=== PATIENT | male | born 1950 | race Caucasian/White ===

== ENCOUNTER → 2020-02-07 13:04 | Outpatient (BNVA) | payer MEDICARE, SELFPAY | PROVIDERS: PCP Hospitalist; Visit Provider Internal Medicine | DX: Z86.73 Personal history of transient ischemic attack (TIA), and cerebral infarction without residual deficits (principal); Z51.81 Encounter for therapeutic drug level monitoring; Z79.01 Long term (current) use of anticoagulants | CPT/HCPCS: 85610; 99211 ==

== ENCOUNTER → 2020-03-06 13:00 | Outpatient (BNVA) | payer MEDICARE, SELFPAY | PROVIDERS: PCP Hospitalist; Visit Provider Internal Medicine | DX: Z86.73 Personal history of transient ischemic attack (TIA), and cerebral infarction without residual deficits (principal); Z51.81 Encounter for therapeutic drug level monitoring; Z79.01 Long term (current) use of anticoagulants | CPT/HCPCS: 85610; 99211 ==

== ENCOUNTER 2020-03-07 09:40 | Outpatient (REF) | payer MEDICARE, SELFPAY ==
[2020-03-07 10:26] LABS: Estimated Average Glucose 114 mg/dL; Hemoglobin A1c % 5.6 %
[2020-03-07 10:33] LABS: Hematocrit 42.6 % (42-52); Hemoglobin 13.5 g/dl (14.0-18.0)
[2020-03-07 10:51] LABS: Alanine Aminotransferase 15 U/L (0-40); Alkaline Phosphatase 88 U/L (39-117); Anion Gap 9 (12-20); Aspartate Amino Transferase 17 U/L (5-37); Bilirubin Total 0.4 mg/dL (0.0-1.0); Blood Urea Nitrogen 10 mg/dL (9-16); Calcium 8.9 mg/dL (8.4-10.2); Carbon Dioxide 32 mmol/L (22-29); Chloride 105 mmol/L (96-108); Cholesterol 154 mg/dL; Estimated Glomerular Filt Rate > 60; Glucose Random 105 mg/dL (60-115); HDL Cholesterol 51 mg/dL; LDL Cholesterol Calculated 91 mg/dl; Potassium 4.3 mmol/l (3.3-5.1); Sodium 142 mmol/L (135-145); Total Protein 6.4 g/dL (6.5-8.0); Triglycerides 60 mg/dL
[2020-03-07 10:59] LABS: Prostate Specific Antigen Scr 0.74 ng/mL (<0.05-4.0); Vitamin D 25-OH Total 28.1 ng/mL (>30)
[2020-03-09 23:42] LABS: Sex Hormone Binding Globulin 35 nmol/L (22-77)
[2020-03-12 02:26] LABS: Testosterone-Albumin 3.7 g/dL (3.6-5.1); Testosterone-Bioavailable 52.9 ng/dL (15.0-150.0); Testosterone-SHBG 34 nmol/L (22-77); Testosterone-Total 243 ng/dL (250-1100)
[2020-03-12 14:52] LABS: Testosterone, Free 34.4 pg/mL (30.0-135.0); Testosterone, Total 253 ng/dL (250-1100)
[2020-03-12 17:32] LABS: N-Telopeptide 59 (see note); NTXCreaRU 132 mg/dL (20-320)
== END 2020-03-07 09:41 | disposition home or self-care (01) ==
LOC: HO.LAB 09:40
PROVIDERS: PCP Hospitalist; Visit Provider Internal Medicine Endocrinology, Diabetes & Metabolism
DX: M81.8 Other osteoporosis without current pathological fracture (principal); E23.0 Hypopituitarism; R79.89 Other specified abnormal findings of blood chemistry
CPT/HCPCS: 36415; 80053; 80061; 82306; 82523; 83036; 84153; 84270; 84402; 84403; 85014; 85018

== ENCOUNTER → 2020-03-13 13:10 | Outpatient (BNVA) | payer MEDICARE, SELFPAY | PROVIDERS: PCP Hospitalist; Referring Provider Hospitalist; Visit Provider Internal Medicine Endocrinology, Diabetes & Metabolism | DX: E23.0 Hypopituitarism (principal); M81.0 Age-related osteoporosis without current pathological fracture; Z79.899 Other long term (current) drug therapy | CPT/HCPCS: Q3014 ==

== ENCOUNTER → 2020-03-25 13:09 | Outpatient (BNVA) | payer MEDICARE, SELFPAY | PROVIDERS: PCP Hospitalist; Visit Provider Internal Medicine | DX: Z86.73 Personal history of transient ischemic attack (TIA), and cerebral infarction without residual deficits (principal); Z51.81 Encounter for therapeutic drug level monitoring; Z79.01 Long term (current) use of anticoagulants | CPT/HCPCS: 85610; 99211 ==

== ENCOUNTER → 2020-04-29 13:01 | Outpatient (BNVA) | payer MEDICARE, SELFPAY | PROVIDERS: PCP Hospitalist; Visit Provider Internal Medicine | DX: Z86.73 Personal history of transient ischemic attack (TIA), and cerebral infarction without residual deficits (principal); Z51.81 Encounter for therapeutic drug level monitoring; Z79.01 Long term (current) use of anticoagulants | CPT/HCPCS: 85610; 99211 ==

== ENCOUNTER 2020-05-21 09:58 | Outpatient (REF) | payer MEDICARE, SELFPAY ==
[2020-05-21 14:04] LABS: MANUAL DIFF FLAG NO
[2020-05-21 14:09] LABS: Basophils Absolute Auto 0.1 X10*3/uL (0.0-0.2); Basophils Percent Auto 0.6 % (0-2); Eosinophils Absolute Auto 0.2 X10*3/uL (0.0-0.4); Hematocrit 42.1 % (42-52); Hemoglobin 13.1 g/dl (14.0-18.0); Imm Gran Abs Auto 0.02 X10*3/uL (0.00-0.03); Imm Gran Pct Auto 0.3 % (0.0-0.4); Lymphocytes Absolute Auto 2.4 X10*3/uL (1.2-4.9); Mean Corpuscular HGB Conc 31.1 g/dl (31.0-36.0); Mean Corpuscular Hemoglobin 29.9 pg (27.0-33.0); Mean Corpuscular Volume 96.1 fL (80-98); Monocytes Absolute Auto 0.6 X10*3/uL (0.1-1.2); Monocytes Percent Auto 7.3 % (2-11); Neutrophils Absolute Auto 4.8 X10*3/uL (2.0-8.3); Neutrophils Percent Auto 59.8 % (45-73); Platelet Count 224 X10*3/uL (160-400); Red Blood Count 4.38 X10*6/uL (4.60-5.80); Red Cell Distribution Width 13.1 % (11.0-16.0)
[2020-05-21 14:29] LABS: Alanine Aminotransferase 11 U/L (0-40); Albumin Level 3.8 g/dL (3.5-5.0); Alkaline Phosphatase 90 U/L (39-117); Anion Gap 12 (12-20); Aspartate Amino Transferase 17 U/L (5-37); Bilirubin Total 0.5 mg/dL (0.0-1.0); Blood Urea Nitrogen 13 mg/dL (9-16); Calcium 8.7 mg/dL (8.4-10.2); Carbon Dioxide 29 mmol/L (22-29); Chloride 106 mmol/L (96-108); Cholesterol 156 mg/dL; Estimated Glomerular Filt Rate > 60; Glucose Fasting 91 mg/dL (60-99); HDL Cholesterol 51 mg/dL; LDL Cholesterol Calculated 92 mg/dl; Potassium 4.7 mmol/l (3.3-5.1); Sodium 142 mmol/L (135-145); Total Protein 6.2 g/dL (6.5-8.0); Triglycerides 68 mg/dL
[2020-05-21 14:40] LABS: Creatinine Urine 118.54 mg/dL; Microalbum/Creatinine Ratio Ur 4.2 ug/mg cr
[2020-05-21 14:43] LABS: Alanine Aminotransferase 11 U/L (0-40); Albumin Level 3.8 g/dL (3.5-5.0); Alkaline Phosphatase 89 U/L (39-117); Aspartate Amino Transferase 17 U/L (5-37); Bilirubin Direct 0.2 mg/dL (0.0-0.5); Bilirubin Total 0.5 mg/dL (0.0-1.0); C Reactive Protein 0.29 mg/dL (< or = 0.50); Iron 82 mcg/dL (45-160); Percent Iron Saturation 27 % (15-50); Total Iron Binding Capacity 307 mcg/dL (228-428); Total Protein 6.2 g/dL (6.5-8.0); Unsaturated Iron Binding 225 ug/dL
[2020-05-21 14:53] LABS: Ferritin 133 ng/mL (20-250); TSH reflex Free T4 0.95 mIU/mL (0.32-4.0)
[2020-05-21 15:18] LABS: Erythrocyte Sedimentation Rate 10 MM/HR (0-15)
[2020-05-21 15:51] LABS: Folate 12.8 ng/mL (> or = 4.0); Vitamin B12 290 pg/mL (200-900)
== END 2020-05-21 09:59 | disposition home or self-care (01) ==
LOC: HO.10HDL 09:58
PROVIDERS: Absent Provider Internal Medicine; Visit Provider Hospitalist
DX: Z00.00 Encounter for general adult medical examination without abnormal findings (principal); Z13.220 Encounter for screening for lipoid disorders; R19.7 Diarrhea, unspecified; K51.90 Ulcerative colitis, unspecified, without complications
CPT/HCPCS: 36415; 80053; 80061; 80076; 82043; 82248; 82607; 82728; 82746; 83540; 84443; 85025; 85652; 86140

== ENCOUNTER 2020-05-22 11:13 | Outpatient (REF) | payer MEDICARE, SELFPAY ==
[2020-05-22 14:34] LABS: CDIFF Ag Positive (Negative); CDiff Toxin Negative (Negative)
[2020-05-22 14:35] LABS: CDIFF Internal ctrl Dots and bkg OK (V)
[2020-05-22 15:09] LABS: Leukocytes Stool Qualitative NEGATIVE (NEGATIVE)
[2020-05-22 15:27] LABS: CDiff Gene PCR POSITIVE (Negative)
== END 2020-05-22 11:14 | disposition home or self-care (01) ==
LOC: HO.10HDLNP 11:13
PROVIDERS: Visit Provider Internal Medicine
DX: R19.7 Diarrhea, unspecified (principal); K51.90 Ulcerative colitis, unspecified, without complications; E55.9 Vitamin D deficiency, unspecified
CPT/HCPCS: 87045; 87046; 87177; 87209; 87324; 87329; 87449; 87493; 89055

== ENCOUNTER → 2020-05-27 13:05 | Outpatient (BNVA) | payer MEDICARE, SELFPAY | PROVIDERS: PCP Hospitalist; Visit Provider Internal Medicine ==

== ENCOUNTER → 2020-05-29 13:45 | Outpatient (BNVA) | payer MEDICARE, SELFPAY | PROVIDERS: PCP Hospitalist; Visit Provider Internal Medicine | DX: Z86.73 Personal history of transient ischemic attack (TIA), and cerebral infarction without residual deficits (principal); Z51.81 Encounter for therapeutic drug level monitoring; Z79.01 Long term (current) use of anticoagulants | CPT/HCPCS: 85610; 99211 ==

== ENCOUNTER → 2020-06-02 13:00 | Outpatient (BNVA) | payer MEDICARE, SELFPAY | PROVIDERS: PCP Hospitalist; Visit Provider Internal Medicine | DX: Z86.73 Personal history of transient ischemic attack (TIA), and cerebral infarction without residual deficits (principal); Z51.81 Encounter for therapeutic drug level monitoring; Z79.01 Long term (current) use of anticoagulants | CPT/HCPCS: 85610; 99211 ==

== ENCOUNTER 2020-06-10 13:05 | Outpatient (REF) | payer MEDICARE, SELFPAY ==
[2020-06-10 14:43] LABS: CDIFF Ag Negative (Negative); CDIFF Internal ctrl Dots and bkg OK (V); CDiff Toxin Negative (Negative)
--- NOTE | 2020-07-13 13:56 | HO.ANESPROP2 ---
HPI - Anesthesia Eval Consult details Narrative: 70yo M for Colonoscopy 07/29/20 Coumadin (PAF, h/o CVA) Chronic opiods (fentanyl patch) s/p RUL lobectomy d/t lung ca 05/2020 Telehealth visit with patient describing increase SOB, recently seen PCP whom suggested ECHO/Stress. Cleared by auto suspension and steering mechanic at mod cardiovasc risk and high pulmonary risk. No stress test needed. PMFSH Active Problems Active Problems: All Active Problems (Updated 06/03/20 @ 14:49 by Marika Hyman) Current use of anticoagulant therapy (Acute) Cerebrovascular disease (Acute) Vitamin D deficiency (Acute) Hypogonadotropic hypogonadism (Acute) Osteoporosis (Acute) Past Medical History Medical History (Updated 06/03/20 @ 14:49 by Marika Hyman) AAA (abdominal aortic aneurysm) Arrhythmia Arthritis Back pain COPD (chronic obstructive pulmonary disease) CVA (cerebral vascular accident) Elevated cholesterol History of MRSA infection Hx of cancer of lung Hx of Clostridium difficile infection Hx of spinal stenosis Hx of ulcerative colitis Hypogonadotropic hypogonadism Lab test negative for COVID-19 virus On anticoagulant therapy Osteoporosis Vitamin D deficiency Family History Family History (Updated 03/10/20 @ 16:27 by Prema Horta MA) Father AAA (abdominal aortic aneurysm) Mother No problems noted. Surgical History Surgical History (Updated 06/03/20 @ 13:03 by Marika Hyman) H/O colonoscopy History of bowel resection History of bronchoscopy History of lobectomy of lung Hx of cervical discectomy Social History Social History (Updated 06/03/20 @ 14:52 by Marika Hyman) Smoking Status: Current every day smoker Tobacco Type: Cigarette Cigarettes Per Day: 2 Years Smoked: 54 Substance Use Type: Marijuana Meds Allergies Allergy/AdvReac Type Severity Reaction Status Date / Time bupropion [From Wellbutrin] Allergy Intermediate Nausea Verified 06/12/20 13:23 levofloxacin [From LEVAQUIN] Allergy Intermediate GI UPSET/ Verified 06/12/20 13:23 WEIGHT LOSS, anaphylaxis ibuprofen Allergy Mild GI DISTRESS Verified 06/12/20 13:23 Home Medications Medication Instructions Recorded Confirmed Last Taken Type albuterol sulfate 2.5 mg CONTINUOUS NEBULIZATION QID 03/06/20 06/26/20 Unknown History PRN albuterol sulfate 90 mcg/actuation 1 inh PO Q4H PRN 03/06/20 06/26/20 Unknown History breath activated powder inhaler fentanyl 12 mcg/hr transdermal 1 patch TOPICAL Q3D 03/06/20 06/26/20 Unknown History patch metoprolol tartrate 25 mg tablet 25 mg PO BID 03/06/20 06/26/20 Unknown History oxycodone 15 mg tablet 15 mg PO QID 03/06/20 06/26/20 Unknown History umeclidinium 62.5 mcg-vilanterol 1 ea PO DAILY 03/06/20 06/26/20 Unknown History 25 mcg/actuation powdr for inhalation atorvastatin 20 mg tablet 20 mg PO DAILY 06/26/20 06/26/20 Unknown History dicyclomine 10 mg capsule 10 mg PO TID 06/26/20 06/26/20 Unknown History diltiazem HCl 120 mg 120 mg PO DAILY 06/26/20 06/26/20 Unknown History capsule,extended release 24 hr Exam Exam Date and Time: July 13, 2020 1356 Pertinent Lab Results Pertinent Lab Results: Laboratory Tests 06/10/20 Unknown C. difficile Toxin A&B Negative C. difficile Antigen Negative C. difficile Interpret SEE NOTE Narrative Narrative: EKG 05/2020 NSR, nonspecific ST changes Echo 06/2020 LVEF 50-55% Cannot assess diastolic function d/t afib LA size is nml RV is nml in size and function No evidence of AR Mild MR Accurate pulmonary pressures cannot be determined due to the absence of a TR jet. No significant change from previous
== END 2020-06-10 13:06 | disposition home or self-care (01) ==
LOC: HO.10HDL 13:05
PROVIDERS: Visit Provider Internal Medicine
DX: A49.8 Other bacterial infections of unspecified site (principal); R19.7 Diarrhea, unspecified
CPT/HCPCS: 87324; 87449

== ENCOUNTER → 2020-06-12 13:23 | Outpatient (BNVA) | payer MEDICARE, SELFPAY | PROVIDERS: PCP Hospitalist; Visit Provider Internal Medicine | DX: Z86.73 Personal history of transient ischemic attack (TIA), and cerebral infarction without residual deficits (principal); Z51.81 Encounter for therapeutic drug level monitoring; Z79.01 Long term (current) use of anticoagulants | CPT/HCPCS: 85610; 99211 ==

== ENCOUNTER → 2020-06-26 13:04 | Outpatient (BNVA) | payer MEDICARE, SELFPAY | PROVIDERS: PCP Hospitalist; Visit Provider Internal Medicine | DX: Z86.718 Personal history of other venous thrombosis and embolism (principal); Z51.81 Encounter for therapeutic drug level monitoring; Z79.01 Long term (current) use of anticoagulants | CPT/HCPCS: 85610; 99211 ==

== ENCOUNTER → 2020-07-24 13:01 | Outpatient (BNVA) | payer MEDICARE, SELFPAY | PROVIDERS: PCP Hospitalist; Visit Provider Internal Medicine | DX: Z86.73 Personal history of transient ischemic attack (TIA), and cerebral infarction without residual deficits (principal); Z79.01 Long term (current) use of anticoagulants; Z51.81 Encounter for therapeutic drug level monitoring | CPT/HCPCS: 85610; 99211 ==

== ENCOUNTER 2020-07-29 08:39 | Day surgery (SDC) | payer MEDICARE, SELFPAY ==
--- NOTE | 2020-07-28 07:54 | P.CONAN_ITS ---
Documented by User: Joan Hilary 07/28/20 07:55 HPI - Anesthesia Eval Consult details Narrative: 70yo M for Colonoscopy 07/29/20 Coumadin (PAF, h/o CVA) Chronic opiods (fentanyl patch) s/p RUL lobectomy d/t lung ca 05/2020 Telehealth visit with patient describing increase SOB, recently seen PCP whom suggested ECHO/Stress. Cleared by telecommunications analyst at mod cardiovasc risk and high pulmonary risk. No stress test needed. [facility] Active Problems Active Problems: All Active Problems (Updated 06/03/20 @ 14:49 by Marika Hyman) Current use of anticoagulant therapy (Acute) Cerebrovascular disease (Acute) Vitamin D deficiency (Acute) Hypogonadotropic hypogonadism (Acute) Osteoporosis (Acute) Past Medical History Medical History (Updated 07/29/20 @ 11:43 by Dionna Pleitez) AAA (abdominal aortic aneurysm) Arrhythmia Arthritis Back pain COPD (chronic obstructive pulmonary disease) CVA (cerebral vascular accident) Elevated cholesterol History of MRSA infection Hx of cancer of lung Hx of Clostridium difficile infection Hx of spinal stenosis Hx of ulcerative colitis Hypogonadotropic hypogonadism Lab test negative for COVID-19 virus On anticoagulant therapy Osteoporosis Vitamin D deficiency Family History Family History (Updated 03/10/20 @ 16:27 by Prema Horta MA) Father AAA (abdominal aortic aneurysm) Mother No problems noted. Surgical History Surgical History (Updated 06/03/20 @ 13:03 by Marika Hyman) H/O colonoscopy History of bowel resection History of bronchoscopy History of lobectomy of lung Hx of cervical discectomy Social History Social History (Updated 06/03/20 @ 14:52 by Marika Hyman) Smoking Status: Current every day smoker Tobacco Type: Cigarette Cigarettes Per Day: 2 Years Smoked: 54 Use of substances other than those prescribed or required for medical reasons: No Substance Use Type: Marijuana Have you been hit, kicked, punched, or otherwise hurt by someone within the past year? If so, by whom?: No Advance Directives: No Advance Directives Information Provided: Yes Meds Allergies Allergy/AdvReac Type Severity Reaction Status Date / Time bupropion [From Wellbutrin] Allergy Intermediate Nausea Verified 06/12/20 13:23 levofloxacin [From LEVAQUIN] Allergy Intermediate GI UPSET/ Verified 06/12/20 13:23 WEIGHT LOSS, anaphylaxis ibuprofen Allergy Mild GI DISTRESS Verified 06/12/20 13:23 Home Medications Medication Instructions Recorded Confirmed Last Taken Type albuterol sulfate 2.5 mg CONTINUOUS NEBULIZATION QID 03/06/20 07/24/20 Unknown History PRN albuterol sulfate 90 mcg/actuation 1 inh PO Q4H PRN 03/06/20 07/24/20 Unknown History breath activated powder inhaler fentanyl 12 mcg/hr transdermal 1 patch TOPICAL Q3D 03/06/20 07/24/20 Unknown History patch metoprolol tartrate 25 mg tablet 25 mg PO BID 03/06/20 07/24/20 Unknown History oxycodone 15 mg tablet 15 mg PO QID 03/06/20 07/24/20 Unknown History umeclidinium 62.5 mcg-vilanterol 1 ea PO DAILY 03/06/20 07/24/20 Unknown History 25 mcg/actuation powdr for inhalation atorvastatin 20 mg tablet 20 mg PO DAILY 06/26/20 07/24/20 Unknown History dicyclomine 10 mg capsule 10 mg PO TID 06/26/20 07/24/20 Unknown History diltiazem HCl 120 mg 120 mg PO DAILY 06/26/20 07/24/20 Unknown History capsule,extended release 24 hr Exam Exam Date and Time: July 28, 2020 9986 Narrative Narrative: EKG 05/2020 NSR, nonspecific ST changes Echo 06/2020 LVEF 50-55% Cannot assess diastolic function d/t afib LA size is nml RV is nml in size and function No evidence of AR Mild MR Accurate pulmonary pressures cannot be determined due to the absence of a TR jet. No significant change from previous Assessment and Plan Assessment Anesthesia Assessment: Chart Reviewed Documented by User: Dionna Pleitez 07/29/20 11:43 [facility] Past Medical History Medical History (Updated 07/29/20 @ 11:43 by Dionna Pleitez) AAA (abdominal aortic aneurysm) Arrhythmia Arthritis Back pain COPD (chronic obstructive pulmonary disease) CVA (cerebral vascular accident) Elevated cholesterol History of MRSA infection Hx of cancer of lung Hx of Clostridium difficile infection Hx of spinal stenosis Hx of ulcerative colitis Hypogonadotropic hypogonadism Lab test negative for COVID-19 virus On anticoagulant therapy Osteoporosis Vitamin D deficiency Family History Family History (Updated 03/10/20 @ 16:27 by Prema Horta MA) Father AAA (abdominal aortic aneurysm) Mother No problems noted. Family history of problems with anesthesia: No Surgical History Surgical History (Updated 06/03/20 @ 13:03 by Marika Hyman) H/O colonoscopy History of bowel resection History of bronchoscopy History of lobectomy of lung Hx of cervical discectomy History of Problems with Anesthesia: No Social History Social History (Updated 06/03/20 @ 14:52 by Marika Hyman) Smoking Status: Current every day smoker Tobacco Type: Cigarette Cigarettes Per Day: 2 Years Smoked: 54 Use of substances other than those prescribed or required for medical reasons: No Substance Use Type: Marijuana Have you been hit, kicked, punched, or otherwise hurt by someone within the past year? If so, by whom?: No Advance Directives: No Advance Directives Information Provided: Yes Meds Allergies Allergy/AdvReac Type Severity Reaction Status Date / Time bupropion [From Wellbutrin] Allergy Intermediate Nausea Verified 06/12/20 13:23 levofloxacin [From LEVAQUIN] Allergy Intermediate GI UPSET/ Verified 06/12/20 13:23 WEIGHT LOSS, anaphylaxis ibuprofen Allergy Mild GI DISTRESS Verified 06/12/20 13:23 Home Medications Medication Instructions Recorded Confirmed Last Taken Type albuterol sulfate 2.5 mg CONTINUOUS NEBULIZATION QID 03/06/20 07/24/20 Unknown History PRN albuterol sulfate 90 mcg/actuation 1 inh PO Q4H PRN 03/06/20 07/24/20 Unknown History breath activated powder inhaler fentanyl 12 mcg/hr transdermal 1 patch TOPICAL Q3D 03/06/20 07/24/20 Unknown History patch metoprolol tartrate 25 mg tablet 25 mg PO BID 03/06/20 07/24/20 Unknown History oxycodone 15 mg tablet 15 mg PO QID 03/06/20 07/24/20 Unknown History umeclidinium 62.5 mcg-vilanterol 1 ea PO DAILY 03/06/20 07/24/20 Unknown History 25 mcg/actuation powdr for inhalation atorvastatin 20 mg tablet 20 mg PO DAILY 06/26/20 07/24/20 Unknown History dicyclomine 10 mg capsule 10 mg PO TID 06/26/20 07/24/20 Unknown History diltiazem HCl 120 mg 120 mg PO DAILY 06/26/20 07/24/20 Unknown History capsule,extended release 24 hr Exam Height,Weight and Vital Signs: Vital Signs Temp Pulse Resp BP Pulse Ox 07/29/20 09:17 98.0 F 73 18 106/57 L 96 Pertinent Lab Results Pertinent Lab Results: Lab Results 07/29/20 Range/Units 09:28 PT 13.6 H (10.8-13.0) SEC INR 1.1 (0.9-1.1) Airway Mallampati Class: II TM Dist: >3cm Neck ROM: Full Denture: Upper and Lower Heart: RRR Lungs: CTAB Assessment and Plan Assessment Anesthesia Assessment: Anesthesia Plan Discussed and Chart Reviewed Final Anesthetic Review NPO: Yes ASA Class: IV Final Preanesthetic Review: No Changes in Pt Med Stat, Meds/Allgs Chart Reviewed, Consent Obtained/Reviewed and Anes Risks/Benef Reviewed Patient Risk: High Procedure Risk: Low Assessment/Block/Sedation in SS: Assess/Block/Sedation-SS Anesthetic Plan Anesthetic Plan: MAC: Disposition: Standard PACU
[2020-07-29 09:17] VITALS: BP 106/57; PULSE 73; RESP 18; TEMP 36.7; O2SAT 96
[2020-07-29 09:28] VITALS: BMI 19.2
[2020-07-29] MEDS: Sodium Phosphate,Mono-Dibasic 133 ML ENEMA PR (09:34)
[2020-07-29 09:40] LABS: INTERNATIONAL NORM RATIO 1.1 (0.9-1.1); Prothrombin Time 13.6 SEC (10.8-13.0)
--- NOTE | 2020-07-29 09:51 | PC.NURSE ---
PATIENT RECEIVED A FLEETS ENEMA -------- RESULTS ARE CLEAR OUTPUT WITH SEDIMENT.
[2020-07-29] MEDS: Lactated Ringers 1,000 ML 50 ML IV (10:00)
[2020-07-29 11:46] VITALS: BP 86/52; PULSE 60; RESP 14; TEMP 36.3; O2SAT 98
[2020-07-29 11:51] VITALS: BP 92/54; PULSE 57
[2020-07-29 12:01] VITALS: BP 95/62; PULSE 57; RESP 16; O2SAT 99
[2020-07-29 12:16] VITALS: BP 131/74; PULSE 55; RESP 16; O2SAT 98
--- NOTE | 2020-07-29 21:50 | OP_ITS ---
SURGEON: Sarwat Barr MD INDICATIONS: The patient presents for evaluation of long-standing history of ulcerative colitis and colorectal cancer screening. Full consent has been obtained from him for this, including risks of bleeding and perforation. PREOPERATIVE DIAGNOSIS: POSTOPERATIVE DIAGNOSIS: PROCEDURE PERFORMED: Colonoscopy to cecum with multiple biopsies, and biopsy and removal of polyp. ESTIMATED BLOOD LOSS: COMPLICATIONS: ANESTHESIA: Monitored anesthesia care. ASSISTANTS: SPECIMENS: PREOPERATIVE DIAGNOSES: Colorectal cancer screening and history of ulcerative colitis. POSTOPERATIVE DIAGNOSES: Colorectal cancer screening and history of ulcerative colitis, colon polyp, rule out dysplasia, diverticulosis, and internal hemorrhoids. DESCRIPTION OF PROCEDURE: The patient was placed in the left lateral decubitus position. The digital rectal exam revealed no abnormalities. The Olympus video pediatric colonoscope was entered into the rectum and advanced easily to the cecum. Once in the cecum, I did identify normal-appearing cecal pouch with appendiceal orifice and a normal-appearing ileocecal valve. The entire cecum was well visualized and appeared normal. There was transillumination of light deep in the right lower quadrant. The scope was then slowly withdrawn assessing all mucosal surfaces carefully. Preparation was excellent. I did not visualize any sign of colitis nor angiodysplasia. I did obtain random biopsies in the ascending colon, transverse colon, descending colon, sigmoid colon, and rectum. In the transverse colon, was a flat approximately 5 mm polyp, which was biopsied and completely removed with cold biopsy forceps. I also obtained biopsies from right around that polypectomy site. Those were placed in a separate jar. There was a mild amount of sigmoid diverticulosis as well. In the rectum, scope was retroflexed visualizing small internal hemorrhoids, but no other pathology. The rectal mucosa appeared normal. The scope was straightened out and withdrawn from the patient. He tolerated the procedure well and was returned to the recovery area in stable condition. IMPRESSION: 1. History of ulcerative colitis, rule out dysplasia. 2. Colon polyp, status post biopsy and removal. 3. Diverticulosis. 4. Internal hemorrhoids. PLAN: The results of the biopsies will be checked. Assuming there is no dysplasia, I would recommend a repeat colonoscopy in 5 years for further screening. Given all of today's biopsies, he was advised to hold off on using any more Lovenox. He was advised to resume his Coumadin in 24 hours at the usual dose and then slowly increase that and have his INR rechecked at the [facility] or with his primary care physician such that the Coumadin can then be adjusted to a therapeutic level. He was advised to continue his mesalamine 800 mg b.i.d. He was also advised to continue his dicyclomine as needed. At this point, I do not think he is having any symptoms of colitis, but I think he has some symptoms from some irritable bowel syndrome as well. This has all been discussed with his . MD MULUGETA Jean Baptiste/MELVIN / [id number]
--- NOTE | 2020-07-29 23:51 | PM.OP ---
Brief Operative Note Date of Service: 07/29/20 Pre-op diagnosis: Ulcerative colitis Post-op diagnosis: other (Same, R/O Dysplasia, Colon polyp) Procedure: Colonoscopy shalonda the cecum with multiple biopsies, and biopsy and removal of a polyp Surgeon: Sarwat Barr Anesthesia: MAC Estimated blood loss (mL): 5.0 Pathology: other (A. Ascending colon B. Transverse colon C. Transverse colon polyp D. Biopsies from around the TC polyp site E. Descending colon F. Sigmoid colon G. Rectum) Condition: stable Disposition: PACU
== END 2020-07-29 10:00 | disposition home or self-care (01) ==
PROVIDERS: Nurse Practitioner; PCP Hospitalist; Visit Provider Internal Medicine
PROC: 0DJD8ZZ Inspection of Lower Intestinal Tract, Via Natural or Artificial Opening Endoscopic (ICD-10-PCS; CPT 45378; principal; 2020-07-29 10:00)
DX: Z12.11 Encounter for screening for malignant neoplasm of colon (principal); D12.3 Benign neoplasm of transverse colon; K57.30 Diverticulosis of large intestine without perforation or abscess without bleeding; K64.8 Other hemorrhoids; K51.90 Ulcerative colitis, unspecified, without complications; J44.9 Chronic obstructive pulmonary disease, unspecified; I10 Essential (primary) hypertension; I48.0 Paroxysmal atrial fibrillation; Z85.118 Personal history of other malignant neoplasm of bronchus and lung; I69.998 Other sequelae following unspecified cerebrovascular disease; H53.8 Other visual disturbances; F17.210 Nicotine dependence, cigarettes, uncomplicated; Z79.01 Long term (current) use of anticoagulants; Z79.899 Other long term (current) drug therapy
CPT/HCPCS: 45380; 36415; 85610; 88305

== ENCOUNTER → 2020-08-03 13:37 | Outpatient (BNVA) | payer MEDICARE, SELFPAY | PROVIDERS: PCP Hospitalist; Visit Provider Internal Medicine | DX: Z86.73 Personal history of transient ischemic attack (TIA), and cerebral infarction without residual deficits (principal); Z79.01 Long term (current) use of anticoagulants; Z51.81 Encounter for therapeutic drug level monitoring | CPT/HCPCS: 85610; 99211 ==

== ENCOUNTER → 2020-08-07 13:24 | Outpatient (BNVA) | payer MEDICARE, SELFPAY | PROVIDERS: PCP Hospitalist; Visit Provider Internal Medicine | DX: Z86.73 Personal history of transient ischemic attack (TIA), and cerebral infarction without residual deficits (principal); Z79.01 Long term (current) use of anticoagulants; Z51.81 Encounter for therapeutic drug level monitoring | CPT/HCPCS: 85610; 99211 ==

== ENCOUNTER → 2020-08-18 13:03 | Outpatient (BNVA) | payer MEDICARE, SELFPAY | PROVIDERS: PCP Hospitalist; Visit Provider Internal Medicine | DX: Z86.73 Personal history of transient ischemic attack (TIA), and cerebral infarction without residual deficits (principal); Z51.81 Encounter for therapeutic drug level monitoring; Z79.01 Long term (current) use of anticoagulants | CPT/HCPCS: 85610; 99211 ==

== ENCOUNTER 2020-09-04 10:44 | Outpatient (REF) | payer MEDICARE, SELFPAY ==
[2020-09-04 14:06] LABS: Hematocrit 40.8 % (42-52); Hemoglobin 12.8 g/dl (14.0-18.0)
[2020-09-04 14:22] LABS: Albumin Level 3.8 g/dL (3.5-5.0); Calcium 9.1 mg/dL (8.4-10.2); Cholesterol 108 mg/dL; HDL Cholesterol 48 mg/dL; LDL Cholesterol Calculated 49 mg/dl; Triglycerides 55 mg/dL
[2020-09-04 14:49] LABS: Prostate Specific Antigen 0.46 ng/mL (<0.05-4.0); Vitamin D 25-OH Total 24.9 ng/mL (>30)
[2020-09-07 17:37] LABS: Sex Hormone Binding Globulin 39 nmol/L (22-77)
[2020-09-08 18:27] LABS: Testosterone, Total 99 ng/dL (250-1100)
[2020-09-12 07:07] LABS: Testosterone-Albumin 3.7 g/dL (3.6-5.1); Testosterone-Bioavailable 20.3 ng/dL (15.0-150.0); Testosterone-Free 11.9 pg/mL (6.0-73.0); Testosterone-SHBG 38 nmol/L (22-77); Testosterone-Total 107 ng/dL (250-1100)
== END 2020-09-04 10:45 | disposition home or self-care (01) ==
LOC: HO.10HDL 10:44
PROVIDERS: Visit Provider Internal Medicine Endocrinology, Diabetes & Metabolism
DX: Z12.5 Encounter for screening for malignant neoplasm of prostate (principal); M81.0 Age-related osteoporosis without current pathological fracture
CPT/HCPCS: 36415; 80061; 82040; 82306; 82310; 84153; 84270; 84402; 84403; 85014; 85018

== ENCOUNTER → 2020-09-11 13:28 | Outpatient (BNVA) | payer MEDICARE, SELFPAY | PROVIDERS: PCP Hospitalist; Visit Provider Internal Medicine Endocrinology, Diabetes & Metabolism | DX: E23.0 Hypopituitarism (principal); E55.9 Vitamin D deficiency, unspecified; M81.0 Age-related osteoporosis without current pathological fracture | CPT/HCPCS: Q3014 ==

== ENCOUNTER → 2020-09-16 13:46 | Outpatient (BNVA) | payer MEDICARE, SELFPAY | PROVIDERS: PCP Hospitalist; Visit Provider Internal Medicine | DX: Z86.73 Personal history of transient ischemic attack (TIA), and cerebral infarction without residual deficits (principal); Z51.81 Encounter for therapeutic drug level monitoring; Z79.01 Long term (current) use of anticoagulants | CPT/HCPCS: 85610; 99211 ==

== ENCOUNTER → 2020-10-15 13:00 | Outpatient (BNVA) | payer MEDICARE, SELFPAY | PROVIDERS: PCP Hospitalist; Visit Provider Internal Medicine | DX: Z86.73 Personal history of transient ischemic attack (TIA), and cerebral infarction without residual deficits (principal); Z51.81 Encounter for therapeutic drug level monitoring; Z79.01 Long term (current) use of anticoagulants | CPT/HCPCS: 85610; 99211 ==

== ENCOUNTER → 2020-11-12 13:03 | Outpatient (BNVA) | payer MEDICARE, SELFPAY | PROVIDERS: PCP Hospitalist; Visit Provider Internal Medicine | DX: Z86.73 Personal history of transient ischemic attack (TIA), and cerebral infarction without residual deficits (principal); Z51.81 Encounter for therapeutic drug level monitoring; Z79.01 Long term (current) use of anticoagulants | CPT/HCPCS: 85610; 99211 ==

== ENCOUNTER → 2020-12-18 13:34 | Outpatient (BNVA) | payer MEDICARE, SELFPAY | PROVIDERS: PCP Hospitalist; Visit Provider Internal Medicine | DX: Z86.73 Personal history of transient ischemic attack (TIA), and cerebral infarction without residual deficits (principal); Z51.81 Encounter for therapeutic drug level monitoring; Z79.01 Long term (current) use of anticoagulants | CPT/HCPCS: 85610; 99211 ==

== ENCOUNTER 2021-01-01 14:36 | Outpatient (REF) | payer MEDICARE, SELFPAY ==
[2021-01-02 13:47] LABS: Immunoglobulin A 356 mg/dL (70-320)
[2021-01-04 16:36] LABS: Transglutaminase Ab IgG 12 U/mL; Transglutaminase IgA 1 U/mL
[2021-01-05 21:36] LABS: Gliadin Deamidated IgA Ab 5 Units; Gliadin Deamidated IgG Ab 1 Units
[2021-01-06 11:47] LABS: Endomysial IgA Antibody Negative (Negative)
== END 2021-01-01 14:37 | disposition home or self-care (01) ==
LOC: HO.LAB 14:36
PROVIDERS: PCP Hospitalist; Visit Provider Internal Medicine
DX: K58.0 Irritable bowel syndrome with diarrhea (principal)
CPT/HCPCS: 36415; 82784; 83516; 86255; 86256

== ENCOUNTER → 2021-01-08 13:21 | Outpatient (BNVA) | payer MEDICARE, SELFPAY | PROVIDERS: PCP Hospitalist; Visit Provider Internal Medicine | DX: Z86.73 Personal history of transient ischemic attack (TIA), and cerebral infarction without residual deficits (principal); Z51.81 Encounter for therapeutic drug level monitoring; Z79.01 Long term (current) use of anticoagulants | CPT/HCPCS: 85610; 99211 ==

== ENCOUNTER → 2021-01-15 14:56 | Outpatient (BNVA) | payer MEDICARE, SELFPAY | PROVIDERS: PCP Hospitalist; Visit Provider Internal Medicine | DX: Z86.73 Personal history of transient ischemic attack (TIA), and cerebral infarction without residual deficits (principal); Z51.81 Encounter for therapeutic drug level monitoring; Z79.01 Long term (current) use of anticoagulants | CPT/HCPCS: 85610; 99211 ==

== ENCOUNTER → 2021-01-28 13:09 | Outpatient (BNVA) | payer MEDICARE, SELFPAY | PROVIDERS: PCP Hospitalist; Visit Provider Internal Medicine | DX: Z86.73 Personal history of transient ischemic attack (TIA), and cerebral infarction without residual deficits (principal); Z51.81 Encounter for therapeutic drug level monitoring; Z79.01 Long term (current) use of anticoagulants | CPT/HCPCS: 85610; 99211 ==

== ENCOUNTER → 2021-02-11 13:03 | Outpatient (BNVA) | payer MEDICARE, SELFPAY | PROVIDERS: PCP Hospitalist; Visit Provider Internal Medicine | DX: Z86.73 Personal history of transient ischemic attack (TIA), and cerebral infarction without residual deficits (principal); Z51.81 Encounter for therapeutic drug level monitoring; Z79.01 Long term (current) use of anticoagulants | CPT/HCPCS: 85610; 99211 ==

== ENCOUNTER → 2021-02-25 13:11 | Outpatient (BNVA) | payer MEDICARE, SELFPAY | PROVIDERS: PCP Hospitalist; Visit Provider Internal Medicine | DX: Z86.73 Personal history of transient ischemic attack (TIA), and cerebral infarction without residual deficits (principal); Z51.81 Encounter for therapeutic drug level monitoring; Z79.01 Long term (current) use of anticoagulants | CPT/HCPCS: 85610; 99211 ==

== ENCOUNTER → 2021-03-02 13:10 | Outpatient (BNVA) | payer MEDICARE, SELFPAY | PROVIDERS: PCP Hospitalist; Visit Provider Internal Medicine | DX: Z86.73 Personal history of transient ischemic attack (TIA), and cerebral infarction without residual deficits (principal); Z51.81 Encounter for therapeutic drug level monitoring; Z79.01 Long term (current) use of anticoagulants | CPT/HCPCS: 85610; 99211 ==

== ENCOUNTER → 2021-03-16 13:06 | Outpatient (BNVA) | payer MEDICARE, SELFPAY | PROVIDERS: PCP Hospitalist; Visit Provider Internal Medicine | DX: Z86.73 Personal history of transient ischemic attack (TIA), and cerebral infarction without residual deficits (principal); Z51.81 Encounter for therapeutic drug level monitoring; Z79.01 Long term (current) use of anticoagulants | CPT/HCPCS: 85610; 99211 ==

== ENCOUNTER 2021-03-29 10:25 | Outpatient (REF) | payer MEDICARE, SELFPAY ==
[2021-03-29 14:02] LABS: Alanine Aminotransferase 13 U/L (0-40); Albumin Level 3.8 g/dL (3.5-5.0); Alkaline Phosphatase 105 U/L (39-117); Anion Gap 12 (12-20); Aspartate Amino Transferase 15 U/L (5-37); Bilirubin Total 0.4 mg/dL (0.0-1.0); Blood Urea Nitrogen 12 mg/dL (9-16); Calcium 9.1 mg/dL (8.4-10.2); Carbon Dioxide 26 mmol/L (22-29); Cholesterol 108 mg/dL; Estimated Glomerular Filt Rate > 60; Glucose Fasting 96 mg/dL (60-99); HDL Cholesterol 51 mg/dL; LDL Cholesterol Calculated 47 mg/dl; Potassium 3.7 mmol/L (3.3-5.1); Total Protein 6.3 g/dL (6.5-8.0); Triglycerides 53 mg/dL
[2021-03-29 14:05] LABS: Chloride 107 mmol/L (96-108); Sodium 141 mmol/L (135-145)
[2021-03-29 14:23] LABS: Creatinine Urine 140.22 mg/dL; Microalbum/Creatinine Ratio Ur 6.4 ug/mg cr
== END 2021-03-29 10:26 | disposition home or self-care (01) ==
LOC: HO.10HDL 10:25
PROVIDERS: Visit Provider Hospitalist
DX: Z86.73 Personal history of transient ischemic attack (TIA), and cerebral infarction without residual deficits (principal)
CPT/HCPCS: 36415; 80053; 80061; 82043

== ENCOUNTER → 2021-04-06 13:02 | Outpatient (BNVA) | payer MEDICARE, SELFPAY | PROVIDERS: PCP Hospitalist; Visit Provider Internal Medicine | DX: Z86.73 Personal history of transient ischemic attack (TIA), and cerebral infarction without residual deficits (principal); Z51.81 Encounter for therapeutic drug level monitoring; Z79.01 Long term (current) use of anticoagulants | CPT/HCPCS: 85610; 99211 ==

== ENCOUNTER → 2021-04-20 13:08 | Outpatient (BNVA) | payer MEDICARE, SELFPAY | PROVIDERS: PCP Hospitalist; Visit Provider Internal Medicine | DX: Z86.73 Personal history of transient ischemic attack (TIA), and cerebral infarction without residual deficits (principal); Z51.81 Encounter for therapeutic drug level monitoring; Z79.01 Long term (current) use of anticoagulants | CPT/HCPCS: 85610; 99211 ==

== ENCOUNTER 2021-05-05 13:01 | Outpatient (REF) | payer MEDICARE, SELFPAY ==
[2021-05-05 14:49] LABS: Thyroid Stimulating Hormone 0.74 uIU/mL (0.32-4.0)
== END 2021-05-05 13:02 | disposition home or self-care (01) ==
LOC: HO.LAB 13:01
PROVIDERS: Absent Provider Internal Medicine; PCP Hospitalist; Visit Provider Internal Medicine
DX: E05.90 Thyrotoxicosis, unspecified without thyrotoxic crisis or storm (principal)
CPT/HCPCS: 36415; 84443; 85610; 99211

== ENCOUNTER → 2021-05-19 13:05 | Outpatient (BNVA) | payer MEDICARE, SELFPAY | PROVIDERS: PCP Hospitalist; Visit Provider Internal Medicine | DX: Z86.73 Personal history of transient ischemic attack (TIA), and cerebral infarction without residual deficits (principal); Z51.81 Encounter for therapeutic drug level monitoring; Z79.01 Long term (current) use of anticoagulants | CPT/HCPCS: 85610; 99211 ==

== ENCOUNTER → 2021-06-02 13:07 | Outpatient (BNVA) | payer MEDICARE, SELFPAY | PROVIDERS: PCP Hospitalist; Visit Provider Internal Medicine | DX: Z86.73 Personal history of transient ischemic attack (TIA), and cerebral infarction without residual deficits (principal); Z51.81 Encounter for therapeutic drug level monitoring; Z79.01 Long term (current) use of anticoagulants | CPT/HCPCS: 85610; 99211 ==

== ENCOUNTER 2021-06-23 12:00 | Outpatient (REF) | payer MEDICARE, SELFPAY ==
--- NOTE | ~2021-06-23 | XR_ITS ---
EXAMINATION: XR CHEST CLINICAL INFORMATION: Cough. COMPARISON: CT chest 07/31/2015 TECHNIQUE: 2 views of the chest were obtained. FINDINGS: Both lungs are hyperinflated with patchy airspace opacity right lower lobe suggestive of infiltrate, new since 2016 CT. Rest of lungs are clear. Heart size and pulmonary vascularity is normal. There is mild dextroscoliosis dorsal spine. There are disc prosthesis and lower cervical spine.. XR/XR chest 2V IMPRESSION: Diffuse emphysema with likely developing infiltrates right lung base.
== END 2021-06-23 12:01 | disposition home or self-care (01) ==
LOC: HO.XRAY 12:00
PROVIDERS: PCP Hospitalist; Visit Provider Internal Medicine
DX: R05.9 Cough, unspecified (principal)
CPT/HCPCS: 71046; 85610; 99211

== ENCOUNTER → 2021-07-21 13:01 | Outpatient (BNVA) | payer MEDICARE, SELFPAY | PROVIDERS: PCP Hospitalist; Visit Provider Internal Medicine | DX: Z86.73 Personal history of transient ischemic attack (TIA), and cerebral infarction without residual deficits (principal); Z51.81 Encounter for therapeutic drug level monitoring; Z79.01 Long term (current) use of anticoagulants | CPT/HCPCS: 85610; 99211 ==

== ENCOUNTER → 2021-08-05 13:09 | Outpatient (BNVA) | payer MEDICARE, SELFPAY | PROVIDERS: PCP Hospitalist; Visit Provider Internal Medicine | DX: Z86.73 Personal history of transient ischemic attack (TIA), and cerebral infarction without residual deficits (principal); Z79.01 Long term (current) use of anticoagulants; Z51.81 Encounter for therapeutic drug level monitoring | CPT/HCPCS: 85610; 99211 ==

== ENCOUNTER → 2021-08-19 13:04 | Outpatient (BNVA) | payer MEDICARE, SELFPAY | PROVIDERS: PCP Hospitalist; Visit Provider Internal Medicine | DX: Z86.73 Personal history of transient ischemic attack (TIA), and cerebral infarction without residual deficits (principal); Z79.01 Long term (current) use of anticoagulants; Z51.81 Encounter for therapeutic drug level monitoring | CPT/HCPCS: 85610; 99211 ==

== ENCOUNTER → 2021-09-01 13:01 | Outpatient (BNVA) | payer MEDICARE, SELFPAY | PROVIDERS: PCP Hospitalist; Visit Provider Internal Medicine | DX: Z86.73 Personal history of transient ischemic attack (TIA), and cerebral infarction without residual deficits (principal); Z79.01 Long term (current) use of anticoagulants; Z51.81 Encounter for therapeutic drug level monitoring | CPT/HCPCS: 85610; 99211 ==

== ENCOUNTER → 2021-09-15 13:20 | Outpatient (BNVA) | payer MEDICARE, SELFPAY | PROVIDERS: PCP Hospitalist; Visit Provider Internal Medicine | DX: Z86.73 Personal history of transient ischemic attack (TIA), and cerebral infarction without residual deficits (principal); Z79.01 Long term (current) use of anticoagulants; Z51.81 Encounter for therapeutic drug level monitoring | CPT/HCPCS: 85610; 99211 ==

== ENCOUNTER → 2021-09-29 13:08 | Outpatient (BNVA) | payer MEDICARE, SELFPAY | PROVIDERS: PCP Hospitalist; Visit Provider Internal Medicine | DX: Z86.73 Personal history of transient ischemic attack (TIA), and cerebral infarction without residual deficits (principal); Z79.01 Long term (current) use of anticoagulants; Z51.81 Encounter for therapeutic drug level monitoring | CPT/HCPCS: 85610; 99211 ==

== ENCOUNTER → 2021-10-21 13:10 | Outpatient (BNVA) | payer MEDICARE, SELFPAY | PROVIDERS: PCP Hospitalist; Visit Provider Internal Medicine | DX: Z86.73 Personal history of transient ischemic attack (TIA), and cerebral infarction without residual deficits (principal); Z51.81 Encounter for therapeutic drug level monitoring; Z79.01 Long term (current) use of anticoagulants | CPT/HCPCS: 85610; 99211 ==

== ENCOUNTER → 2021-10-29 13:41 | Outpatient (BNVA) | payer MEDICARE, SELFPAY | PROVIDERS: PCP Hospitalist; Visit Provider Internal Medicine | DX: Z86.73 Personal history of transient ischemic attack (TIA), and cerebral infarction without residual deficits (principal); Z51.81 Encounter for therapeutic drug level monitoring; Z79.01 Long term (current) use of anticoagulants | CPT/HCPCS: 85610; 99211 ==

== ENCOUNTER → 2021-11-02 13:16 | Outpatient (BNVA) | payer MEDICARE, SELFPAY | PROVIDERS: PCP Hospitalist; Visit Provider Internal Medicine | DX: Z86.73 Personal history of transient ischemic attack (TIA), and cerebral infarction without residual deficits (principal); Z79.01 Long term (current) use of anticoagulants; Z51.81 Encounter for therapeutic drug level monitoring | CPT/HCPCS: 85610; 99211 ==

== ENCOUNTER → 2021-11-16 13:05 | Outpatient (BNVA) | payer MEDICARE, SELFPAY | PROVIDERS: PCP Hospitalist; Visit Provider Internal Medicine | DX: Z86.718 Personal history of other venous thrombosis and embolism (principal); Z79.01 Long term (current) use of anticoagulants; Z51.81 Encounter for therapeutic drug level monitoring | CPT/HCPCS: 85610; 99211 ==

== ENCOUNTER → 2021-11-23 13:33 | Outpatient (BNVA) | payer MEDICARE, SELFPAY | PROVIDERS: PCP Hospitalist; Visit Provider Internal Medicine | DX: Z86.73 Personal history of transient ischemic attack (TIA), and cerebral infarction without residual deficits (principal); Z79.01 Long term (current) use of anticoagulants; Z51.81 Encounter for therapeutic drug level monitoring | CPT/HCPCS: 85610; 99211 ==

== ENCOUNTER → 2021-12-07 13:03 | Outpatient (BNVA) | payer MEDICARE, SELFPAY | PROVIDERS: PCP Hospitalist; Visit Provider Internal Medicine | DX: Z86.73 Personal history of transient ischemic attack (TIA), and cerebral infarction without residual deficits (principal); Z79.01 Long term (current) use of anticoagulants; Z51.81 Encounter for therapeutic drug level monitoring | CPT/HCPCS: 85610; 99211 ==

== ENCOUNTER 2021-12-14 14:55 | Outpatient (REF) | payer MEDICARE, SELFPAY | END 2021-12-14 14:56 | disposition home or self-care (01) | LOC: HO.LNP 14:55 | PROVIDERS: Visit Provider Hospitalist | DX: J47.9 Bronchiectasis, uncomplicated (principal); J41.1 Mucopurulent chronic bronchitis; J84.10 Pulmonary fibrosis, unspecified; R91.8 Other nonspecific abnormal finding of lung field; G47.33 Obstructive sleep apnea (adult) (pediatric); Z90.2 Acquired absence of lung [part of]; Z85.118 Personal history of other malignant neoplasm of bronchus and lung | CPT/HCPCS: 87070; 87116; 87205; 94640; 99202 ==

== ENCOUNTER 2021-12-22 14:18 | Outpatient (REF) | payer MEDICARE, SELFPAY ==
--- NOTE | ~2021-12-22 | MM_ITS ---
EXAMINATION: BONE DENSITOMETRY CLINICAL INDICATION: Osteoporosis. COMPARISON: Previous BD dated 12/13/2019 and baseline BD dated 01/13/2017. TECHNIQUE: Using a [employer] DXA System (software version: 13.1) manufactured by [employer], dual-energy x-ray absorptiometry was performed of the lumbar spine and left hip. The images are of good technical quality. Summary results are attached. FINDINGS: AP SPINE L1-L4: Current: BMD 0.822 g/cm2, Z-score -1.8, T-score -3.3, osteoporosis, 9.7% decrease from previous, 13.0% decrease from baseline (<5% change is not significant). Prior: BMD 0.910 g/cm2. Baseline: BMD 0.945 g/cm2. LEFT FEMUR, NECK: Current: BMD 0.545 g/cm2, Z-score -2.1, T-score -4.0, osteoporosis. Prior: BMD 0.624 g/cm2. Baseline: BMD 0.711 g/cm2. LEFT FEMUR, TOTAL: Current: BMD 0.624 g/cm2, Z-score -1.9, T-score -3.3, osteoporosis, 9.0% decrease from previous, 23.1% decrease from baseline (<5% change is not significant). Prior: BMD 0.686 g/cm2. Baseline: BMD 0.811 g/cm2. IDENTIFIED RISK FACTORS: Height loss, osteoporosis, secondary osteoporosis. HISTORY OF FRACTURE: None listed. MEDICATIONS: Calcium, vitamin D. MM/XR DEXA axial skeleton IMPRESSION: 1. DIAGNOSIS: Osteoporosis based on the lowest T-score value of -4.0 in the femoral neck applying World Health Organization criteria. 2. 10-YEAR FRACTURE RISK PREDICTION, FRAX: Major osteoporotic fracture (clinical spine, forearm, hip or shoulder) 14.5%. Hip fracture 8.3%. 3. Treatment Recommendations: NOF guidelines recommend consideration for treatment in postmenopausal women and men age 50 and older presenting with the following: -A hip or vertebral (clinical or morphometric) fracture. -T-score less than or equal to -2.5 at the femoral neck or spine after appropriate evaluation to exclude secondary causes. -Low bone mass at the hip or spine and a 10-year fracture probability by FRAX of greater than or equal to 3% for hip fracture or greater than or equal to 20% for major osteoporotic fracture based on the [place] adapted WHO algorithm. 4. Other Recommendations: All treatment decisions require clinical judgment and consideration of individual patient factors, including patient preferences, comorbidities, previous drug use, risk factors not captured in the FRAX model (e.g. frailty, falls, vitamin D deficiency, increased bone turnover, interval significant decline in bone density) and possible under or overestimation of fracture risk by FRAX. Additional medical evaluation for secondary cause of low bone mineral density may be appropriate. FUTURE SCAN RECOMMENDATION: People with diagnosed cases of osteoporosis or at high risk for fracture should have regular bone mineral density tests. For patients eligible for Medicare, routine testing is allowed once every 2 years. The testing frequency can be increased to one year for patients who have rapidly progressing disease, those who are receiving or discontinuing medical therapy to restore bone mass, or have additional risk factors.
== END 2021-12-22 14:19 | disposition home or self-care (01) ==
LOC: HO.MAMMO 14:18
PROVIDERS: Visit Provider Internal Medicine Endocrinology, Diabetes & Metabolism
DX: Z13.820 Encounter for screening for osteoporosis (principal); M81.0 Age-related osteoporosis without current pathological fracture
CPT/HCPCS: 77080

== ENCOUNTER → 2021-12-23 13:04 | Outpatient (BNVA) | payer MEDICARE, SELFPAY | PROVIDERS: PCP Hospitalist; Visit Provider Internal Medicine | DX: Z86.73 Personal history of transient ischemic attack (TIA), and cerebral infarction without residual deficits (principal); Z51.81 Encounter for therapeutic drug level monitoring; Z79.01 Long term (current) use of anticoagulants | CPT/HCPCS: 85610; 99211 ==

== ENCOUNTER 2022-01-12 15:38 | Outpatient (REF) | payer MEDICARE, SELFPAY | END 2022-01-12 15:39 | disposition home or self-care (01) | LOC: HO.LNP 15:38 | PROVIDERS: Visit Provider Hospitalist | DX: J41.1 Mucopurulent chronic bronchitis (principal) | CPT/HCPCS: 87070; 87077; 87185; 87205 ==

== ENCOUNTER → 2022-01-20 13:17 | Outpatient (BNVA) | payer MEDICARE, SELFPAY | PROVIDERS: PCP Hospitalist; Visit Provider Internal Medicine | DX: Z86.73 Personal history of transient ischemic attack (TIA), and cerebral infarction without residual deficits (principal); Z79.01 Long term (current) use of anticoagulants; Z51.81 Encounter for therapeutic drug level monitoring | CPT/HCPCS: 85610; 99211 ==

== ENCOUNTER → 2022-01-25 15:25 | Outpatient (BNVA) | payer MEDICARE, SELFPAY | PROVIDERS: PCP Hospitalist; Visit Provider Internal Medicine Endocrinology, Diabetes & Metabolism | DX: E23.0 Hypopituitarism (principal); E29.1 Testicular hypofunction; M81.0 Age-related osteoporosis without current pathological fracture | CPT/HCPCS: 99212 ==

== ENCOUNTER → 2022-02-03 13:39 | Outpatient (BNVA) | payer MEDICARE, SELFPAY | PROVIDERS: PCP Hospitalist; Visit Provider Hospitalist | DX: J47.9 Bronchiectasis, uncomplicated (principal); J84.10 Pulmonary fibrosis, unspecified; J41.1 Mucopurulent chronic bronchitis; R91.8 Other nonspecific abnormal finding of lung field; Z85.118 Personal history of other malignant neoplasm of bronchus and lung | CPT/HCPCS: 99212 ==

== ENCOUNTER 2022-02-07 12:58 | Outpatient (REF) | payer MEDICARE, SELFPAY ==
[2022-02-07 14:00] LABS: Total Volume 24 Hour Urine 925 mL
[2022-02-07 14:41] LABS: Creatinine, 24Hr Urine 1.2 G/Day (1.0-2.0); Creatinine, mg/dL 128.07
[2022-02-07 15:07] LABS: Vitamin D 25-OH Total 24.3 ng/mL (>30)
[2022-02-09 18:01] LABS: Calcium, 24 Hr Urine 68 mg/24 h; Calcium/Creatinine Ratio 60 mg/g creat (30-210); Creatinine 24Hr Urine 1.13 g/24 h (0.50-2.15)
== END 2022-02-07 12:59 | disposition home or self-care (01) ==
LOC: HO.LAB 12:58
PROVIDERS: PCP Hospitalist; Visit Provider Internal Medicine Endocrinology, Diabetes & Metabolism
DX: M81.0 Age-related osteoporosis without current pathological fracture (principal); E23.0 Hypopituitarism
CPT/HCPCS: 36415; 82306; 82340; 82570

== ENCOUNTER 2022-02-09 13:37 | Outpatient (REF) | payer MEDICARE, SELFPAY | END 2022-02-09 13:38 | disposition home or self-care (01) | LOC: HO.LNP 13:37 | PROVIDERS: Visit Provider Hospitalist | DX: J41.1 Mucopurulent chronic bronchitis (principal) | CPT/HCPCS: 87116 ==

== ENCOUNTER → 2022-02-11 13:07 | Outpatient (REF) | payer MEDICARE, SELFPAY ==
--- NOTE | 2022-02-11 | ECG_ITS ---
Test Reason : CP Blood Pressure : / mmHG Vent. Rate : 068 BPM Atrial Rate : 068 BPM P-R Int : 094 ms QRS Dur : 096 ms QT Int : 362 ms P-R-T Axes : 000 079 054 degrees QTc Int : 384 ms Sinus rhythm with short OK Otherwise normal ECG When compared with ECG of 14-JUN-2010 14:44, T wave amplitude has increased in Anterolateral leads Referred By: Tony Jhaveri Electronically Signed By:PARISH HEART MD
== END ==
LOC: HO.CARD 13:07
PROVIDERS: PCP Hospitalist; Visit Provider Hospitalist
DX: Z86.73 Personal history of transient ischemic attack (TIA), and cerebral infarction without residual deficits (principal); J44.9 Chronic obstructive pulmonary disease, unspecified; Z51.81 Encounter for therapeutic drug level monitoring; Z79.01 Long term (current) use of anticoagulants
CPT/HCPCS: 85610; 93005; 99211

== ENCOUNTER → 2022-02-17 13:03 | Outpatient (BNVA) | payer MEDICARE, SELFPAY | PROVIDERS: PCP Hospitalist; Visit Provider Internal Medicine | DX: Z86.73 Personal history of transient ischemic attack (TIA), and cerebral infarction without residual deficits (principal); Z79.01 Long term (current) use of anticoagulants; Z51.81 Encounter for therapeutic drug level monitoring | CPT/HCPCS: 85610; 99211 ==

== ENCOUNTER → 2022-03-03 13:14 | Outpatient (BNVA) | payer MEDICARE, SELFPAY | PROVIDERS: PCP Hospitalist; Visit Provider Internal Medicine | DX: Z86.73 Personal history of transient ischemic attack (TIA), and cerebral infarction without residual deficits (principal); Z79.01 Long term (current) use of anticoagulants; Z51.81 Encounter for therapeutic drug level monitoring | CPT/HCPCS: 85610; 99211 ==

== ENCOUNTER → 2022-03-31 12:59 | Outpatient (BNVA) | payer MEDICARE, SELFPAY | PROVIDERS: PCP Hospitalist; Visit Provider Internal Medicine | DX: Z86.73 Personal history of transient ischemic attack (TIA), and cerebral infarction without residual deficits (principal); Z79.01 Long term (current) use of anticoagulants; Z51.81 Encounter for therapeutic drug level monitoring | CPT/HCPCS: 85610; 99211 ==

== ENCOUNTER 2022-04-05 14:48 | Outpatient (REF) | payer MEDICARE, SELFPAY ==
[2022-04-05 15:07] LABS: MANUAL DIFF FLAG NO
[2022-04-05 16:14] LABS: Basophils Percent Auto 0.4 % (0-2); Eosinophils Percent Auto 0.4 % (0-4); Hematocrit 42.2 % (42.0-52.0); Imm Gran Abs Auto 0.03 X10*3/uL (0.00-0.03); Imm Gran Pct Auto 0.3 % (0.0-0.4); Lymphocytes Absolute Auto 2.3 X10*3/uL (1.2-4.9); Lymphocytes Percent Auto 24.2 % (20-40); Mean Corpuscular HGB Conc 30.8 g/dl (31.0-36.0); Mean Corpuscular Hemoglobin 29.4 pg (27.0-33.0); Mean Corpuscular Volume 95.5 fL (80.0-98.0); Mean Platelet Volume 10.7 fL (9.4-12.4); Monocytes Absolute Auto 0.8 X10*3/uL (0.1-1.2); Monocytes Percent Auto 8.7 % (2-11); Neutrophils Absolute Auto 6.3 x10*3/uL (2.0-8.3); Platelet Count 194 X10*3/uL (160-400); Red Blood Count 4.42 X10*6/uL (4.60-5.80); White Blood Count 9.5 X10*3/uL (4.8-10.8)
[2022-04-05 17:06] LABS: Cortisol Random 5.7 ug/dL
[2022-04-07 11:28] LABS: Alpha 1 Anti-trypsin 200 mg/dL (83-199)
[2022-04-07 14:32] LABS: IgA 338 mg/dL (70-320); IgG 628 mg/dL (600-1540)
[2022-04-11 14:53] LABS: Asperg fumigatus Precip Abs NEGATIVE (NEGATIVE); IgM 84 mg/dL (50-300); Micropoly faeni Abs NEGATIVE (NEGATIVE); Pigeon serum Abs NEGATIVE (NEGATIVE); Saccharo pora viridis Abs NEGATIVE (NEGATIVE); Thermo candidus Abs NEGATIVE (NEGATIVE); Thermoa vulgaris #1 NEGATIVE (NEGATIVE)
== END 2022-04-05 14:49 | disposition home or self-care (01) ==
LOC: HO.LAB 14:48
PROVIDERS: PCP Hospitalist; Visit Provider Hospitalist
DX: J41.1 Mucopurulent chronic bronchitis (principal); J47.9 Bronchiectasis, uncomplicated; R91.8 Other nonspecific abnormal finding of lung field; J31.0 Chronic rhinitis
CPT/HCPCS: 36415; 82103; 82533; 82784; 82785; 85025; 86003; 86331; 86606; 86609; 99212

== ENCOUNTER → 2022-04-11 13:01 | Outpatient (BNVA) | payer MEDICARE, SELFPAY | PROVIDERS: PCP Hospitalist; Visit Provider Internal Medicine | DX: Z86.73 Personal history of transient ischemic attack (TIA), and cerebral infarction without residual deficits (principal); Z79.01 Long term (current) use of anticoagulants; Z51.81 Encounter for therapeutic drug level monitoring | CPT/HCPCS: 85610; 99211 ==

== ENCOUNTER → 2022-05-02 13:31 | Outpatient (BNVA) | payer MEDICARE, SELFPAY | PROVIDERS: PCP Hospitalist; Visit Provider Internal Medicine | DX: Z86.73 Personal history of transient ischemic attack (TIA), and cerebral infarction without residual deficits (principal); Z79.01 Long term (current) use of anticoagulants; Z51.81 Encounter for therapeutic drug level monitoring | CPT/HCPCS: 85610; 99211 ==

== ENCOUNTER 2022-05-16 12:42 | Outpatient (REF) | payer MEDICARE, SELFPAY ==
[2022-05-17 10:59] LABS: Immunoglobulin E 12 kU/L (<OR=114)
== END 2022-05-16 12:43 | disposition home or self-care (01) ==
LOC: HO.LAB 12:42
PROVIDERS: Hospitalist; PCP Hospitalist; Visit Provider Internal Medicine Endocrinology, Diabetes & Metabolism
DX: Z86.73 Personal history of transient ischemic attack (TIA), and cerebral infarction without residual deficits (principal); J41.1 Mucopurulent chronic bronchitis; Z51.81 Encounter for therapeutic drug level monitoring; Z79.01 Long term (current) use of anticoagulants
CPT/HCPCS: 36415; 82785; 85610; 99211

== ENCOUNTER → 2022-05-19 13:20 | Outpatient (BNVA) | payer MEDICARE, SELFPAY | PROVIDERS: PCP Hospitalist; Visit Provider Internal Medicine | DX: Z86.73 Personal history of transient ischemic attack (TIA), and cerebral infarction without residual deficits (principal); Z79.01 Long term (current) use of anticoagulants; Z51.81 Encounter for therapeutic drug level monitoring | CPT/HCPCS: 85610; 99211 ==

== ENCOUNTER 2022-06-02 13:03 | Outpatient (REF) | payer MEDICARE, SELFPAY ==
[2022-06-02 15:24] LABS: Vitamin D 25-OH Total 22.1 ng/mL (>30)
== END 2022-06-02 13:04 | disposition home or self-care (01) ==
LOC: HO.LAB 13:03
PROVIDERS: Absent Provider Internal Medicine Endocrinology, Diabetes & Metabolism; PCP Hospitalist; Visit Provider Internal Medicine
DX: Z86.73 Personal history of transient ischemic attack (TIA), and cerebral infarction without residual deficits (principal); E55.9 Vitamin D deficiency, unspecified; Z51.81 Encounter for therapeutic drug level monitoring; Z79.01 Long term (current) use of anticoagulants
CPT/HCPCS: 36415; 82306; 85610; 99211

== ENCOUNTER → 2022-06-03 09:24 | Outpatient (BNVA) | payer MEDICARE, SELFPAY | PROVIDERS: PCP Hospitalist; Visit Provider Hospitalist | DX: J47.9 Bronchiectasis, uncomplicated (principal); J84.9 Interstitial pulmonary disease, unspecified; J84.10 Pulmonary fibrosis, unspecified; R06.02 Shortness of breath; R91.8 Other nonspecific abnormal finding of lung field; M81.0 Age-related osteoporosis without current pathological fracture; Z87.891 Personal history of nicotine dependence; Z85.118 Personal history of other malignant neoplasm of bronchus and lung; Z90.2 Acquired absence of lung [part of]; Z79.899 Other long term (current) drug therapy | CPT/HCPCS: 94640; 99212 ==

== ENCOUNTER 2022-06-03 10:37 | Outpatient (REF) | payer MEDICARE, SELFPAY ==
[2022-06-10 05:33] LABS: N-Telopeptide 85 (see note); NTXCreaRU 51 mg/dL (20-320)
== END 2022-06-03 10:38 | disposition home or self-care (01) ==
LOC: HO.LNP 10:37
PROVIDERS: Visit Provider Internal Medicine Endocrinology, Diabetes & Metabolism
DX: M81.0 Age-related osteoporosis without current pathological fracture (principal)
CPT/HCPCS: 82523

== ENCOUNTER → 2022-06-30 13:02 | Outpatient (BNVA) | payer MEDICARE, SELFPAY | PROVIDERS: PCP Hospitalist; Visit Provider Internal Medicine | DX: J44.1 Chronic obstructive pulmonary disease with (acute) exacerbation (principal); J47.9 Bronchiectasis, uncomplicated; J84.10 Pulmonary fibrosis, unspecified; R91.8 Other nonspecific abnormal finding of lung field; Z85.118 Personal history of other malignant neoplasm of bronchus and lung; Z86.73 Personal history of transient ischemic attack (TIA), and cerebral infarction without residual deficits; Z79.01 Long term (current) use of anticoagulants; Z51.81 Encounter for therapeutic drug level monitoring | CPT/HCPCS: 85610; 99211; 99212 ==

== ENCOUNTER 2022-07-28 13:02 | Outpatient (REF) | payer MEDICARE, SELFPAY ==
[2022-07-28 14:44] LABS: Vitamin D 25-OH Total 25.7 ng/mL (>30)
== END 2022-07-28 13:03 | disposition home or self-care (01) ==
LOC: HO.LAB 13:02
PROVIDERS: Internal Medicine Endocrinology, Diabetes & Metabolism; PCP Hospitalist; Visit Provider Internal Medicine
DX: Z86.73 Personal history of transient ischemic attack (TIA), and cerebral infarction without residual deficits (principal); E55.9 Vitamin D deficiency, unspecified; Z51.81 Encounter for therapeutic drug level monitoring; Z79.01 Long term (current) use of anticoagulants
CPT/HCPCS: 36415; 82306; 85610; 99211

== ENCOUNTER → 2022-08-05 16:10 | Outpatient (BNVA) | payer MEDICARE, SELFPAY | PROVIDERS: PCP Hospitalist; Visit Provider Internal Medicine Endocrinology, Diabetes & Metabolism | DX: M81.0 Age-related osteoporosis without current pathological fracture (principal); E23.0 Hypopituitarism | CPT/HCPCS: 99212 ==

== ENCOUNTER → 2022-08-19 13:04 | Outpatient (BNVA) | payer MEDICARE, SELFPAY | PROVIDERS: PCP Hospitalist; Visit Provider Internal Medicine | DX: Z86.73 Personal history of transient ischemic attack (TIA), and cerebral infarction without residual deficits (principal); Z79.01 Long term (current) use of anticoagulants; Z51.81 Encounter for therapeutic drug level monitoring | CPT/HCPCS: 85610; 99211 ==

== ENCOUNTER → 2022-08-26 13:21 | Outpatient (BNVA) | payer MEDICARE, SELFPAY | PROVIDERS: PCP Hospitalist; Visit Provider Internal Medicine | DX: Z86.73 Personal history of transient ischemic attack (TIA), and cerebral infarction without residual deficits (principal); Z79.01 Long term (current) use of anticoagulants; Z51.81 Encounter for therapeutic drug level monitoring | CPT/HCPCS: 85610; 99211 ==

== ENCOUNTER → 2022-09-02 13:06 | Outpatient (BNVA) | payer MEDICARE, SELFPAY | PROVIDERS: PCP Hospitalist; Visit Provider Internal Medicine | DX: Z86.73 Personal history of transient ischemic attack (TIA), and cerebral infarction without residual deficits (principal); Z79.01 Long term (current) use of anticoagulants; Z51.81 Encounter for therapeutic drug level monitoring | CPT/HCPCS: 85610; 99211 ==

== ENCOUNTER → 2022-09-23 13:05 | Outpatient (BNVA) | payer MEDICARE, SELFPAY | PROVIDERS: PCP Hospitalist; Visit Provider Internal Medicine | DX: Z86.73 Personal history of transient ischemic attack (TIA), and cerebral infarction without residual deficits (principal); Z79.01 Long term (current) use of anticoagulants; Z51.81 Encounter for therapeutic drug level monitoring | CPT/HCPCS: 85610; 99211 ==

== ENCOUNTER → 2022-10-04 14:10 | Outpatient (BNVA) | payer MEDICARE, SELFPAY | PROVIDERS: PCP Hospitalist; Visit Provider Hospitalist | DX: J44.1 Chronic obstructive pulmonary disease with (acute) exacerbation (principal); J47.9 Bronchiectasis, uncomplicated; J84.10 Pulmonary fibrosis, unspecified; R91.8 Other nonspecific abnormal finding of lung field; R07.9 Chest pain, unspecified; R06.00 Dyspnea, unspecified; Z85.118 Personal history of other malignant neoplasm of bronchus and lung | CPT/HCPCS: 99212 ==

== ENCOUNTER 2022-10-14 12:52 | Outpatient (REF) | payer MEDICARE, SELFPAY ==
[2022-10-14 13:28] LABS: MANUAL DIFF FLAG NO
[2022-10-14 13:36] LABS: Venous Blood Gas Refer to POC result
[2022-10-14 13:37] LABS: VBG Base Excess 5.1 mmol/L; VBG HCO3 31 mmol/L (22-26); VBG pCO2 53 mmHg; VBG pH 7.38 (7.32-7.43); VBG pO2 43 mmHg
[2022-10-14 13:59] LABS: Basophils Absolute Auto 0.1 X10*3/uL (0.0-0.2); Basophils Percent Auto 0.9 % (0-2); Hemoglobin 12.7 g/dl (14.0-18.0); Imm Gran Abs Auto 0.02 X10*3/uL (0.00-0.03); Imm Gran Pct Auto 0.3 % (0.0-0.4); Lymphocytes Absolute Auto 1.9 X10*3/uL (1.2-4.9); Lymphocytes Percent Auto 28.1 % (20-40); Mean Corpuscular HGB Conc 31.8 g/dl (31.0-36.0); Mean Corpuscular Hemoglobin 30.8 pg (27.0-33.0); Mean Corpuscular Volume 96.9 fL (80.0-98.0); Mean Platelet Volume 10.5 fL (9.4-12.4); Monocytes Absolute Auto 0.6 X10*3/uL (0.1-1.2); Monocytes Percent Auto 8.1 % (2-11); Neutrophils Absolute Auto 4.2 x10*3/uL (2.0-8.3); Neutrophils Percent Auto 62.6 % (45-73); Platelet Count 173 X10*3/uL (160-400); Red Blood Count 4.13 X10*6/uL (4.60-5.80); Red Cell Distribution Width 13.2 % (11.0-16.0); White Blood Count 6.8 X10*3/uL (4.8-10.8)
[2022-10-14 14:20] LABS: B Type Natriuretic Peptide 39 pg/mL (<100)
[2022-10-14 14:44] LABS: Erythrocyte Sedimentation Rate 4 MM/HR (0-15)
[2022-10-14 15:12] LABS: Anion Gap 11 (12-20); Blood Urea Nitrogen 13 mg/dL (9-16); Calcium 9.2 mg/dL (8.4-10.2); Carbon Dioxide 29 mmol/L (22-29); Chloride 106 mmol/L (96-108); Estimated Glomerular Filt Rate > 60; Glucose Random 112 mg/dL (60-115); Sodium 142 mmol/L (135-145)
[2022-10-14 15:20] LABS: Troponin-I High Sensitivity < 2.7 ng/L (<3.5-35.0)
== END 2022-10-14 12:53 | disposition home or self-care (01) ==
LOC: HO.LAB 12:52
PROVIDERS: PCP Hospitalist; Visit Provider Hospitalist
DX: Z86.73 Personal history of transient ischemic attack (TIA), and cerebral infarction without residual deficits (principal); I50.9 Heart failure, unspecified; R06.00 Dyspnea, unspecified; R07.9 Chest pain, unspecified; J47.9 Bronchiectasis, uncomplicated; Z51.81 Encounter for therapeutic drug level monitoring; Z79.01 Long term (current) use of anticoagulants
CPT/HCPCS: 36415; 80048; 82803; 83880; 84484; 85025; 85610; 85652; 87070; 87077; 87186; 87205; 99211

== ENCOUNTER 2022-11-11 13:00 | Outpatient (AMB) | payer MEDICARE, SELFPAY ==
--- NOTE | 2022-11-11 13:15 | MHC.OFFVISCO ---
Intake Intake Visit Reasons: Anticoagulation Allergies bupropion [From Wellbutrin] Allergy (Intermediate, Verified 11/11/22 13:03) Nausea levofloxacin [From LEVAQUIN] Allergy (Intermediate, Verified 11/11/22 13:03) GI UPSET/ WEIGHT LOSS, anaphylaxis ibuprofen Allergy (Mild, Verified 11/11/22 13:03) GI DISTRESS Medication List - Last Reconciled 11/11/22 by Nova Tan RN acetaminophen 500 mg PO Q6H PRN albuterol sulfate 90 mcg/actuation 1 inh PO Q4H PRN albuterol sulfate 90 mcg/actuation 2 puffs PO Q6H PRN albuterol sulfate 2.5 mg (3 mL) continuous nebulization QID PRN aspirin 81 mg PO DAILY atorvastatin 20 mg PO DAILY azithromycin 250 mg PO 3XW 28 days calcium citrate 500 mg (2 x 250 mg calcium) PO BID 90 days carvedilol 3.125 mg PO BID cholecalciferol (vitamin D3) 100 mcg (2 x 50 mcg (2,000 unit)) PO DAILY 90 days diltiazem HCl 120 mg PO BID doxycycline monohydrate 100 mg PO BID 21 days fluticasone propion-salmeterol 250-50 mcg/dose (Wixela Inhub) 1 inh inhalation Q12H 30 days wsmkdfgfsnj-[id number]-[id number] 200-62.5-25 mcg (Trelegy Ellipta) 1 inh inhalation DAILY 30 days nebulizers As directed oxycodone 10 mg PO Q6H oxycodone ER (OxyContin) 10 mg PO BID Oxygen Home Use As directed [probiotics PO] sertraline 25 mg PO DAILY sodium chloride 7% 4 mL inhalation BID theophylline ER 400 mg PO DAILY warfarin 2.5 mg See Protocol PO DAILY Nursing Note PT.WWAS ON DOXY X21 DAYS FOR LUNG INFECTION. LAST DOSE WAS ON 11/08. HE STATES THAT HE IS FEELING MUCH BETTER. USING O2 TODAY AT 2L. NO CP OR SX OF BLEEDING. DECREASE DOSE SLIGHTLY TODAY THEN RESUME USUAL DOSE AND FOLLOW-UP IN 4 WEEKS. [place] TODAY GOOD UNDERSTANDING OF DOSING INSTR. Anti-Coag Initial Assessment Social Hx Patient Tobacco Use Status: Former Tobacco user Tobacco use type: Cigarette Alcohol intake frequency: does not drink Coding Level of Care Code Est Patient Level 1 Diagnoses Current use of anticoagulant therapy Z79.01 Results AMB INR Fingerstick AMB INR Fingerstick 3.4 Last Edit by Nova Tan RN on 11/11/22 13:12 Assessment & Plan Assessment & Plan (1) Current use of anticoagulant therapy: Code(s): Z79.01 - nursing home (current) use of 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
[2022-11-11 13:47] LABS: ~PT, ~INR - Anti Coag Clinic 3.4 (0.9-1.1)
== END 2022-11-11 13:20 | disposition home or self-care (01) ==
LOC: HO.ACS 13:00
PROVIDERS: PCP Hospitalist; Visit Provider Internal Medicine
DX: Z79.01 Long term (current) use of anticoagulants (principal)

== ENCOUNTER → 2022-11-11 13:00 | Outpatient (BNVA) | payer MEDICARE, SELFPAY | PROVIDERS: PCP Hospitalist; Visit Provider Internal Medicine | DX: Z86.73 Personal history of transient ischemic attack (TIA), and cerebral infarction without residual deficits (principal); Z79.01 Long term (current) use of anticoagulants; Z51.81 Encounter for therapeutic drug level monitoring | CPT/HCPCS: 85610; 99211 ==

== ENCOUNTER 2022-12-07 09:30 | Outpatient (REF) | payer MEDICARE, SELFPAY | END 2022-12-07 09:31 | disposition home or self-care (01) | LOC: HO.LNP 09:30 | PROVIDERS: Visit Provider Hospitalist | DX: Z13.89 Encounter for screening for other disorder (principal) ==

== ENCOUNTER 2022-12-08 13:18 | Outpatient (AMB) | payer MEDICARE, SELFPAY ==
[2022-12-08 13:43] LABS: Prothrombin Time Whole Bld POC 25.8 sec (11.1-13.5); ~PT, ~INR - Anti Coag Clinic 2.1 (0.9-1.1)
--- NOTE | 2022-12-08 13:44 | MHC.OFFVISCO ---
Intake Intake Visit Reasons: Anticoagulation Allergies bupropion [From Wellbutrin] Allergy (Intermediate, Verified 12/08/22 13:36) Nausea levofloxacin [From LEVAQUIN] Allergy (Intermediate, Verified 12/08/22 13:36) GI UPSET/ WEIGHT LOSS, anaphylaxis ibuprofen Allergy (Mild, Verified 12/08/22 13:36) GI DISTRESS Medication List - Last Reconciled 12/08/22 by Mira Antonio RN acetaminophen 500 mg PO Q6H PRN albuterol sulfate 90 mcg/actuation 1 inh PO Q4H PRN albuterol sulfate 90 mcg/actuation 2 puffs PO Q6H PRN albuterol sulfate 2.5 mg (3 mL) continuous nebulization QID PRN aspirin 81 mg PO DAILY atorvastatin 20 mg PO DAILY azithromycin 250 mg PO 3XW 28 days calcium citrate 500 mg (2 x 250 mg calcium) PO BID 90 days carvedilol 3.125 mg PO BID cholecalciferol (vitamin D3) 100 mcg (2 x 50 mcg (2,000 unit)) PO DAILY 90 days diltiazem HCl 120 mg PO BID fluticasone propion-salmeterol 250-50 mcg/dose (Wixela Inhub) 1 inh inhalation Q12H 30 days imknnejzfny-[id number]-wtbvwddf 200-62.5-25 mcg (Trelegy Ellipta) 1 inh inhalation DAILY 30 days nebulizers As directed oxycodone 10 mg PO Q6H oxycodone ER (OxyContin) 10 mg PO BID Oxygen Home Use As directed [probiotics PO] sertraline 25 mg PO DAILY sodium chloride 7% 4 mL inhalation BID theophylline ER 400 mg PO DAILY warfarin 2.5 mg See Protocol PO DAILY Nursing Note Amb to ACS using cont O2, feeling ok sts he had an episode recently was working on one of the cars and I began to feel lightheaded, heart rate 145, and pale sts he has a follow up with filler block inserter remover soon and is feeling better now Medications and supplements reviewed No changes in health, diet, medications, or supplements Denies any unusual signs and symptoms of bruising, bleeding Denies any new Chest pain, SOB, or clotting INR: 2.1 in therapeutic range Nutritional guidance given: balance greens and reds in diet Dose: continue usual dosing; 3.75mg x 1 day and 2.5mg x 6 days F/U INR: 4 weeks, and to keep us posted if any med changes or procedures after cardiology visit Patient verbalizes understanding of instructions given with accurate read back/ teach back of dosing Anti-Coag Initial Assessment Social Hx Patient Tobacco Use Status: Former Tobacco user Tobacco use type: Cigarette Alcohol intake frequency: does not drink Coding Level of Care Code Est Patient Level 1 Diagnoses Current use of anticoagulant therapy Z79.01 Time Spent (min) 15 Assessment & Plan Assessment & Plan (1) Current use of anticoagulant therapy: Code(s): 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
== END 2022-12-08 13:50 | disposition home or self-care (01) ==
LOC: HO.ACS 13:18
PROVIDERS: PCP Hospitalist; Visit Provider Internal Medicine
DX: Z79.01 Long term (current) use of anticoagulants (principal)

== ENCOUNTER 2022-12-08 13:30 | Outpatient (REF) | payer MEDICARE, SELFPAY | END 2022-12-08 13:31 | disposition home or self-care (01) | LOC: HO.LNP 13:30 | PROVIDERS: Visit Provider Hospitalist | DX: J47.9 Bronchiectasis, uncomplicated (principal); Z86.73 Personal history of transient ischemic attack (TIA), and cerebral infarction without residual deficits; Z51.81 Encounter for therapeutic drug level monitoring; Z79.01 Long term (current) use of anticoagulants | CPT/HCPCS: 85610; 87070; 87077; 87186; 87205; 99211 ==

== ENCOUNTER 2023-01-05 13:03 | Outpatient (AMB) | payer MEDICARE, SELFPAY ==
[2023-01-05 13:13] LABS: Prothrombin Time Whole Bld POC 19.3 sec (11.1-13.5); ~PT, ~INR - Anti Coag Clinic 1.6 (0.9-1.1)
--- NOTE | 2023-01-05 13:22 | MHC.OFFVISCO ---
Intake Intake Visit Reasons: Anticoagulation Allergies bupropion [From Wellbutrin] Allergy (Intermediate, Verified 01/05/23 13:05) Nausea levofloxacin [From LEVAQUIN] Allergy (Intermediate, Verified 01/05/23 13:05) GI UPSET/ WEIGHT LOSS, anaphylaxis ibuprofen Allergy (Mild, Verified 01/05/23 13:05) GI DISTRESS Medication List - Last Reconciled 01/05/23 by Cherrie Parker RN acetaminophen 500 mg PO Q6H PRN albuterol sulfate 90 mcg/actuation 1 inh PO Q4H PRN albuterol sulfate 90 mcg/actuation 2 puffs PO Q6H PRN albuterol sulfate 2.5 mg (3 mL) continuous nebulization QID PRN aspirin 81 mg PO DAILY atorvastatin 20 mg PO DAILY azithromycin 250 mg PO 3XW 28 days calcium citrate 500 mg (2 x 250 mg calcium) PO BID 90 days carvedilol 3.125 mg PO BID cholecalciferol (vitamin D3) 100 mcg (2 x 50 mcg (2,000 unit)) PO DAILY 90 days diltiazem HCl 120 mg PO BID fluticasone propion-salmeterol 250-50 mcg/dose (Wixela Inhub) 1 inh inhalation Q12H 30 days nehuatskwit-nztukhtpd-agdnbkga 200-62.5-25 mcg (Trelegy Ellipta) 1 inh inhalation DAILY 30 days nebulizers As directed oxycodone 10 mg PO Q6H oxycodone ER (OxyContin) 10 mg PO BID Oxygen Home Use As directed [probiotics PO] sertraline 25 mg PO DAILY sodium chloride 7% 4 mL inhalation BID theophylline ER 400 mg PO DAILY warfarin 2.5 mg See Protocol PO DAILY Nursing Note INR: 1.6 off warfarin fro cardiac cath Medications and supplements reviewed No changes in health, diet, medications, or supplements, Denies any signs and symptoms of bleeding or bruising or clotting. Bleeding, bruising, clotting discussed Nutritional guidance given Dose: off warfarin x 6 days , still on aspirin resume 5mg x 1 days then resume usual diet then 3.75mg x 1 day/ 2.5mg x 6 days F/U INR: 01/16/23 or sooner Patient verbalizes understanding of instructions given call placed to cardiology regarding INR, aspirin, lovenox, resuming warfarin - left msg. 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
== END 2023-01-05 13:24 | disposition home or self-care (01) ==
LOC: HO.ACS 13:03
PROVIDERS: PCP Hospitalist; Visit Provider Internal Medicine
DX: Z79.01 Long term (current) use of anticoagulants (principal)

== ENCOUNTER → 2023-01-05 13:03 | Outpatient (BNVA) | payer MEDICARE, SELFPAY | PROVIDERS: PCP Hospitalist; Visit Provider Internal Medicine | DX: Z86.73 Personal history of transient ischemic attack (TIA), and cerebral infarction without residual deficits (principal); Z79.01 Long term (current) use of anticoagulants; Z51.81 Encounter for therapeutic drug level monitoring | CPT/HCPCS: 85610; 99211 ==

== ENCOUNTER 2023-01-16 13:21 | Outpatient (AMB) | payer MEDICARE, SELFPAY ==
--- NOTE | 2023-01-16 13:28 | MHC.OFFVISCO ---
Intake Intake Visit Reasons: Anticoagulation Allergies bupropion [From Wellbutrin] Allergy (Intermediate, Verified 01/16/23 13:22) Nausea levofloxacin [From LEVAQUIN] Allergy (Intermediate, Verified 01/16/23 13:22) GI UPSET/ WEIGHT LOSS, anaphylaxis ibuprofen Allergy (Mild, Verified 01/16/23 13:22) GI DISTRESS Medication List - Last Reconciled 01/16/23 by Millie Rodriguez RN acetaminophen 500 mg PO Q6H PRN albuterol sulfate 90 mcg/actuation 1 inh PO Q4H PRN albuterol sulfate 90 mcg/actuation 2 puffs PO Q6H PRN albuterol sulfate 2.5 mg (3 mL) continuous nebulization QID PRN aspirin 81 mg PO DAILY atorvastatin 20 mg PO DAILY azithromycin 250 mg PO 3XW 28 days calcium citrate 500 mg (2 x 250 mg calcium) PO BID 90 days carvedilol 3.125 mg PO BID cholecalciferol (vitamin D3) 100 mcg (2 x 50 mcg (2,000 unit)) PO DAILY 90 days diltiazem HCl 120 mg PO BID fluticasone propion-salmeterol 250-50 mcg/dose (Wixela Inhub) 1 inh inhalation Q12H 30 days camfkimyzby-dkxvmcnsn-uzchewdi 200-62.5-25 mcg (Trelegy Ellipta) 1 inh inhalation DAILY 30 days nebulizers As directed oxycodone 10 mg PO Q6H oxycodone ER (OxyContin) 10 mg PO BID Oxygen Home Use As directed [probiotics PO] sertraline 25 mg PO DAILY sodium chloride 7% 4 mL inhalation BID theophylline ER 400 mg PO DAILY warfarin 2.5 mg See Protocol PO DAILY Nursing Note INR 1.4- out of therapeutic range Medications and supplements reviewed Patient status: pt s/p cardiac cath on 01/09/23 with 5 day hold of warfarin, no lovenox restarted warfarin on 01/09/23 with 5mg Medications or supplements: pt not taking azithromycin 3x week until he speaks to joseph/dr painting Diet: same, Denies any signs and symptoms of bleeding or clotting or unusual bruising Bleeding, bruising, clotting discussed Nutritional guidance given: no greens for 2-3 days, no reds for 2 days Dose: 5mg today and tomm, then cont 2.5mg x 6, 3.75mg x 1 F/U INR Date : monday01/20/23? Patient verbalizing understanding of instructions given. 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
[2023-01-16 13:29] LABS: Prothrombin Time Whole Bld POC 16.3 sec (11.1-13.5); ~PT, ~INR - Anti Coag Clinic 1.4 (0.9-1.1)
== END 2023-01-16 13:45 | disposition home or self-care (01) ==
LOC: HO.ACS 13:21
PROVIDERS: PCP Hospitalist; Visit Provider Internal Medicine
DX: Z79.01 Long term (current) use of anticoagulants (principal)

== ENCOUNTER → 2023-01-16 13:21 | Outpatient (BNVA) | payer MEDICARE, SELFPAY | PROVIDERS: PCP Hospitalist; Visit Provider Internal Medicine | DX: Z86.73 Personal history of transient ischemic attack (TIA), and cerebral infarction without residual deficits (principal); Z51.81 Encounter for therapeutic drug level monitoring; Z79.01 Long term (current) use of anticoagulants | CPT/HCPCS: 85610; 99212 ==

== ENCOUNTER 2023-01-20 13:20 | Outpatient (AMB) | payer MEDICARE, SELFPAY ==
[2023-01-20 13:41] LABS: Prothrombin Time Whole Bld POC 29.2 sec (11.1-13.5); ~PT, ~INR - Anti Coag Clinic 2.4 (0.9-1.1)
--- NOTE | 2023-01-20 13:51 | MHC.OFFVISCO ---
Intake Intake Visit Reasons: Anticoagulation Allergies bupropion [From Wellbutrin] Allergy (Intermediate, Verified 01/20/23 13:33) Nausea levofloxacin [From LEVAQUIN] Allergy (Intermediate, Verified 01/20/23 13:33) GI UPSET/ WEIGHT LOSS, anaphylaxis ibuprofen Allergy (Mild, Verified 01/20/23 13:33) GI DISTRESS Medication List - Last Reconciled 01/20/23 by Nova Tan RN acetaminophen 500 mg PO Q6H PRN albuterol sulfate 90 mcg/actuation 1 inh PO Q4H PRN albuterol sulfate 90 mcg/actuation 2 puffs PO Q6H PRN albuterol sulfate 2.5 mg (3 mL) continuous nebulization QID PRN aspirin 81 mg PO DAILY atorvastatin 20 mg PO DAILY azithromycin 250 mg PO 3XW 28 days calcium citrate 500 mg (2 x 250 mg calcium) PO BID 90 days carvedilol 3.125 mg PO BID cholecalciferol (vitamin D3) 100 mcg (2 x 50 mcg (2,000 unit)) PO DAILY 90 days diltiazem HCl 120 mg PO BID fluticasone propion-salmeterol 250-50 mcg/dose (Wixela Inhub) 1 inh inhalation Q12H 30 days vhspxlnsxde-nmnjdgleh-jofewmyi 200-62.5-25 mcg (Trelegy Ellipta) 1 inh inhalation DAILY 30 days nebulizers As directed oxycodone 10 mg PO Q6H oxycodone ER (OxyContin) 10 mg PO BID Oxygen Home Use As directed [probiotics PO] sertraline 25 mg PO DAILY sodium chloride 7% 4 mL inhalation BID theophylline ER 400 mg PO DAILY warfarin 2.5 mg See Protocol PO DAILY Nursing Note NO CP DIET/MED CHANGES FALLS OR SX OF BLEEDING. CONTINUE PRESENT DOSE AND FOLLOW-UP IN 4 WEEKS. GOOD UNDERSTANDING OF DOSING INSTR. PT.TO CONTINUES TO HAVE INCREASED SOB WITH MINIMAL EXERTION. TO SEE CARDIOLOGY ON 02/02. PT.AGREES TO CALL [facility] IF ANY QUESTIONS/CONCERNS ARISE IN THE MEANTIME. Anti-Coag Initial Assessment Social Hx Patient Tobacco Use Status: Former Tobacco user Tobacco use type: Cigarette Alcohol intake frequency: does not drink Coding Level of Care Code Est Patient Level 1 Diagnoses Current use of anticoagulant therapy Z79.01 Assessment & Plan Assessment & Plan (1) Current use of anticoagulant therapy: Code(s): Z79.01 - half-way (current) use of 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
== END 2023-01-20 13:59 | disposition home or self-care (01) ==
LOC: HO.ACS 13:20
PROVIDERS: PCP Hospitalist; Visit Provider Internal Medicine
DX: Z79.01 Long term (current) use of anticoagulants (principal)

== ENCOUNTER → 2023-01-20 13:20 | Outpatient (BNVA) | payer MEDICARE, SELFPAY | PROVIDERS: PCP Hospitalist; Visit Provider Internal Medicine | DX: Z86.73 Personal history of transient ischemic attack (TIA), and cerebral infarction without residual deficits (principal); Z79.01 Long term (current) use of anticoagulants; Z51.81 Encounter for therapeutic drug level monitoring | CPT/HCPCS: 85610; 99211 ==

== ENCOUNTER 2023-01-31 14:06 | Outpatient (REF) | payer MEDICARE, SELFPAY | END 2023-01-31 14:07 | disposition home or self-care (01) | LOC: HO.LNP 14:06 | PROVIDERS: PCP Hospitalist; Visit Provider Hospitalist | DX: J47.9 Bronchiectasis, uncomplicated (principal); K21.9 Gastro-esophageal reflux disease without esophagitis; J41.1 Mucopurulent chronic bronchitis; R91.8 Other nonspecific abnormal finding of lung field; I50.9 Heart failure, unspecified; R06.00 Dyspnea, unspecified; R07.9 Chest pain, unspecified | CPT/HCPCS: 87070; 87077; 87205; 99212 ==

== ENCOUNTER 2023-01-31 14:06 | Outpatient (AMB) | payer MEDICARE, SELFPAY ==
--- NOTE | 2023-01-31 14:08 | MHC.OFFVIS ---
Intake Vital Signs 01/31/23 14:09 Height 5 ft 6 in Weight 100 lb BMI 16.1 Pulse 85 Pulse Source Pulse Oximeter Pulse Oximetry (%) 97 Oxygen Delivery Method Room Air Comment 2 Liters Oxygen(Inogen) Intake Visit Reasons: Obstructive sleep apnea Slide Forming Machine Operator Required: No Allergies bupropion [From Wellbutrin] Allergy (Intermediate, Verified 01/31/23 14:11) Nausea levofloxacin [From LEVAQUIN] Allergy (Intermediate, Verified 01/31/23 14:11) GI UPSET/ WEIGHT LOSS, anaphylaxis ibuprofen Allergy (Mild, Verified 01/31/23 14:11) GI DISTRESS HPI HPI Comments History of Present Illness Details The patient is a 72-year-old gentleman with a significant pulmonary history. the patient does have a history of lung cancer diagnosed back in 2019 status post right upper lobectomy. Patient did not receive any chemo or radiation. He also carries diagnosis of COPD. He also has pulmonary nodules and also evidence of interstitial lung disease. His last CT scan of the chest was done back in August 2021 at [facility]. It appears that the patient has evidence of interstitial lung disease with underlying pulmonary fibrosis. There is also evidence of bronchiectasis with extensive mucus plugging. He has pulmonary nodules. Some of the areas of pulmonary fibrosis appear to be coalescing and difficult to know if there is any recurrent malignancy. The radiologist recommended a close follow-up. The patient continues to have a worsening cough productive in nature. Yellowish to green sputum. We were able to perform a nebulized treatment with Xopenex and hypertonic saline and did send sputum for culture for both AFB and Gram staining culture. The patient has had a bronchoscopy in the past many years ago performed by a local thoracic surgeon and he tolerated that well. At this point he does not need a bronchoscopy but we have to work on his chest physical therapy. 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 At this time will increase his chest physical therapy to try to remove mucus plugging in the patient will need a repeat CT scan. In addition to that the patient has been getting samples of Trelegy which appears to be very effective in beneficial for him. However, is also very expensive and he is currently in the donut hole. I will send him a generic Wixela with hope that this will be less of a financial burden. 02/03/2022 the patient is here for a pulmonary follow-up visit. Overall he started to feel better. Although the having episodes of chest tightness and wheezing. He did have a CT scan of the chest sometime in the summer 2019 to could be consistent demonstrating persistent pulmonary density in addition to mucus plugging and bronchiectatic changes. He did start hypertonic saline with CPT with Acapella valve. This seems to be helping some. He also finds the Mucinex is helpful. His cultures were positive for Haemophilus influenzae. The AFB cultures for the reason cannot be done. The patient at this point will start azithromycin 3 times a week for his chronic bronchitis and bronchiectasis. He is scheduled to undergo repeat CT scans from hopeful that that proved the findings. The patient is also having wheezing. If the patient is not better with the azithromycin that with go ahead and start him on a course of prednisone again. He moved need to stay on a small dose for longer period time to provide some sustained improvement. 04/05/2022 the patient is here for a pulmonary follow-up visit. He started to complaining of increasing chest tightness and wheezing in addition to feeling tired with fatigue and achy. He always feels better on prednisone. The last couple weeks he stop using the prednisone in his symptoms restarted. Otherwise had been feeling well. Continues the azithromycin with good effect. We are still waiting for the sputum AFB to come back. We already treating for the Haemophilus influenzae. Continues use the nebulized treatments and also continues use Mucinex with good effect. At this time in be reasonable to put him back on small dose of prednisone. He may have a component of adrenal insufficiency from his chronic prednisone use. Will go ahead and check his random cortisol level before starting him on prednisone. the patient did have a repeat CT scan of the chest demonstrating interval improvement of his nodular densities which is reassuring. He will need a follow-up CT scan in the next 6-12 months. 06/03/2022 the patient is here for a sick visit. He has had worsening chest tightness and wheezing the last several days. He did have some prednisone at home and he did increase his prednisone from 10 mg to 40 mg. Initially was helping but then went down to the 20 mg dose and he started again having difficulty with breathing significant shortness of breath. Moderate severity. Also had a cough and noticed that would have increased congestion when using the nebulizer. He will use the nebulizer just once a day. He he was also noted to have elevated blood pressure. He did see his primary care doctor. He has blood pressure medication was increased. In the meantime still having hard time breathing. In the office he does have significant wheezing. Therefore I did given 2 treatments of Xopenex. I do believe the that he will probably do better with DuoNeb as long as he does not develop any adverse effects. Therefore I did provide him with some samples of DuoNeb for him to try. I do want to use the nebulizer 3 times a day for now. The patient does have significant chest tightness. After the Xopenex he did a little better. 06/30/2022 the patient is here for a pulmonary follow-up visit. Overall the patient is starting to feel better. He is weaning down on the prednisone. He continues on the azithromycin 3 times a week. Overall his chest congestion has improved dramatically. He is very happy about that. Although he still complains of chest tightness and wheezing. He has been having to take care of his who is very ill and does have been a lot of additional stress and physical activity that he has had to do. He has gotten very winded with activity. During the office visit we did go for brief walking oximetry in the patient did desaturate down to around 91% with activity. It is likely that if he was going up a flight of stairs or outside going up a slant he likely will be desaturate further. He was symptomatic with increasing shortness of breath when his oxygen dropped to the low 90s. So happens that he was given a gift of a portable oxygen concentrator. And therefore he consider using that with activity specially when he is out of the house. For his respiratory medications he was some Wixela and then subsequently switched over to Trelegy. Trelegy seems to be better. Will go ahead and maximize the Trelegy from 100-200 at this time. Her 10/04/2022 the patient is here for pulmonary follow-up visit. Patient overall has been doing well although he still have is that chest congestion. Noticed more yellowish phlegm little hard to expectorate. Is using the Acapella valve and also the nebulized therapy. She continues use the oxygen. He has also been noticing increasing shortness of breath with minimal activity. We did go for brief walking oximetry and his pulse oximeter was able to stay around 94 95% throughout the ambulation although he was visibly dyspneic. His high court justice recommended doing a cardiac catheterization. He went to know my thoughts as far as cardiac catheterization versus CT of the coronary arteries. I did state that the cardiac catheterizations getting get more information including pressures. I do believe that if he is going to have a cardiac catheterization he should have a right and left cardiac catheterization looking for potentially right sided limitations and cor pulmonale a loss well as pulmonary hypertension. The patient also will undergo blood work including an ABG or venous gas to assess his CO2. He does have hypercapnia and then starting him on a noninvasive ventilator will be helpful. Will also check his hemoglobin to make sure that he is not anemic that potentially can also account for his dyspnea on exertion. 01/31/2023 the patient is here for a pulmonary follow-up visit. The patient overall has been about the same. Still complaining of shortness of breath in addition to productive cough. He had a complete cardiac workup which was reassuring without any blockages. The patient now will go ahead and request pulmonary function studies in order to get him to pulmonary rehabilitation to increase his respiratory capacity. The patient also had sputum culture done still growing the Acinetobacter bacteria and also Aspergillus. Will go ahead and treat again the Acinetobacter with doxycycline. We will also send another sputum right now says he brought the specimen. As far as the Aspergillus will hold off on treatment right now this is likely a colonizer. She continues with respiratory therapy is been helpful. He continues to lose weight and he is concerned that he has does not clearly now why he is losing weight. He continues on the oxygen supplementation with good effect. [facility] Medical History (Updated 01/31/23 @ 22:02 by Tony Jhaveri MD) Bronchiectasis Pulmonary fibrosis Pulmonary nodules Bronchiectasis History of MRSA infection Arthritis Back pain Hx of spinal stenosis Lab test negative for COVID-19 virus Arrhythmia Hx of Clostridium difficile infection Hx of cancer of lung On anticoagulant therapy Elevated cholesterol Hx of ulcerative colitis CVA (cerebral vascular accident) COPD (chronic obstructive pulmonary disease) AAA (abdominal aortic aneurysm) Vitamin D deficiency Hypogonadotropic hypogonadism Osteoporosis Surgical History H/O colonoscopy History of bowel resection History of bronchoscopy History of lobectomy of lung Hx of cervical discectomy Family History Father AAA (abdominal aortic aneurysm) Mother No problems noted. Social History Are you a primary care director to a significant other at home: No Do you presently have visiting nurse or other home services: No Patient Tobacco Use Status: Former Tobacco user Tobacco use type: Cigarette Years Smoked: 54 Years Substance Use Type: Marijuana Review of Systems Const Denies fever(s) Eyes Denies eye discharge ENT Denies change in voice Card Denies chest pain and Reports dyspnea on exertion Resp Reports chest congestion, Reports cough, Denies hemoptysis, Reports dyspnea on exertion and Reports wheezing GI Reports no additional complaints Musc Reports no additional complaints Skin/Breast Denies rash Neuro Reports no additional complaints Endo Reports no additional complaints Ortiz/Lymph Denies easy bleeding, Denies easy bruising and Denies lymphadenopathy Aller/Immun Reports wheezing Physical Exam Vital Signs: Last Vital Signs Pulse 85 01/31/23 14:09 Pulse Ox 97 01/31/23 14:09 Oxygen Delivery Method Room Air 01/31/23 14:09 BMI result Body Mass Index 16.1 Const General: comfortable HEENT Head: Yes normal to inspection Eyes General: appearance normal, both eyes and all related structures Neck Neck: Yes supple Chest Chest palpation & inspection: normal inspection of the chest Resp Auscultation: no crackles, no rales, no rhonchi, wheezes and diminished lung sounds Cardio Rate: regular rate Rhythm: regular rhythm Heart sounds: S1 normal heart sound present and S2 normal heart sound present Extrem General: Yes no clubbing, cyanosis or edema Assessment & Plan Assessment & Plan (1) COPD (chronic obstructive pulmonary disease): Code(s): J44.9 - Chronic obstructive pulmonary disease, unspecified Qualifiers: COPD type: COPD with acute exacerbation Qualified Code(s): J44.1 - Chronic obstructive pulmonary disease with (acute) exacerbation (2) Bronchiectasis: Code(s): J47.9 - Bronchiectasis, uncomplicated Qualifiers: Bronchiectasis type: uncomplicated Qualified Code(s): J47.9 - Bronchiectasis, uncomplicated (3) Dyspnea: Code(s): R06.00 - Dyspnea, unspecified Qualifiers: Dyspnea type: dyspnea on exertion Qualified Code(s): R06.09 - Other forms of dyspnea (4) Pulmonary fibrosis: Code(s): J84.10 - Pulmonary fibrosis, unspecified (5) Pulmonary nodules: Code(s): R91.8 - Other nonspecific abnormal finding of lung field (6) Hx of cancer of lung: Comment: with right upper [id number] not need chemotherapy or radiation Code(s): Z85.118 - Personal history of other malignant neoplasm of bronchus and lung Plan continue trelegy 200 nebulized therapy with albuterol followed by hypertonic saline followed by Aerobika valve twice a day sputum culure hypertonic saline 3% to be started for his chest physical therapy start Doxycycline consider treating with antifungal therapy PFTs Pulmonary rehab Mucinex as needed follow-up in 2-3 months Orders: Orders Pulmonary Rehab Today J44.9 - Chronic obstructive pulmonary disease, unspecified PFT pulmonary function test Today J44.9 - Chronic obstructive pulmonary disease, unspecified Sputum Cult + Gram stain Today J47.9 - Bronchiectasis, uncomplicated Medications: New doxycycline monohydrate 100 mg PO BID 30 days 60 tabs 3RF Coding Level of Care Code Est Pt Level 4 (03567) Diagnoses Chronic obstructive pulmonary disease with acute exacerbation J44.1 COPD type: COPD with acute exacerbation Bronchiectasis without complication J47.9 Bronchiectasis type: uncomplicated Dyspnea on exertion R06.09 Dyspnea type: dyspnea on exertion Pulmonary fibrosis J84.10 Pulmonary nodules R91.8 Hx of cancer of lung Z85.118 Time Spent (min) 18
[2023-01-31 14:09] VITALS: PULSE 85; O2SAT 97; BMI 16.1
== END 2023-01-31 14:32 | disposition home or self-care (01) ==
PROVIDERS: PCP Hospitalist; Visit Provider Hospitalist
DX: J44.1 Chronic obstructive pulmonary disease with (acute) exacerbation (principal); R06.09 Other forms of dyspnea; J84.10 Pulmonary fibrosis, unspecified; R91.8 Other nonspecific abnormal finding of lung field; Z85.118 Personal history of other malignant neoplasm of bronchus and lung
CPT/HCPCS: 99214

== ENCOUNTER 2023-02-14 13:15 | Outpatient (AMB) | payer MEDICARE, SELFPAY ==
--- NOTE | 2023-02-14 13:27 | MHC.OFFVISCO ---
Intake Intake Visit Reasons: Anticoagulation Allergies bupropion [From Wellbutrin] Allergy (Intermediate, Verified 02/14/23 13:20) Nausea levofloxacin [From LEVAQUIN] Allergy (Intermediate, Verified 02/14/23 13:20) GI UPSET/ WEIGHT LOSS, anaphylaxis ibuprofen Allergy (Mild, Verified 02/14/23 13:20) GI DISTRESS Medication List - Last Reconciled 02/14/23 by Millie Rodriguez RN acetaminophen 500 mg PO Q6H PRN albuterol sulfate 90 mcg/actuation 1 inh PO Q4H PRN albuterol sulfate 90 mcg/actuation 2 puffs PO Q6H PRN albuterol sulfate 2.5 mg (3 mL) continuous nebulization QID PRN amoxicillin-pot clavulanate 875-125 mg 1 tab PO BID 8 days aspirin 81 mg PO DAILY atorvastatin 20 mg PO DAILY azithromycin 250 mg PO 3XW 28 days calcium citrate 500 mg (2 x 250 mg calcium) PO BID 90 days carvedilol 3.125 mg PO BID cholecalciferol (vitamin D3) 100 mcg (2 x 50 mcg (2,000 unit)) PO DAILY 90 days diltiazem HCl 120 mg PO BID doxycycline monohydrate 100 mg PO BID 30 days fluticasone propion-salmeterol 250-50 mcg/dose (Wixela Inhub) 1 inh inhalation Q12H 30 days zueixneyatk-jgqzbivpr-utohfjip 200-62.5-25 mcg (Trelegy Ellipta) 1 inh inhalation DAILY 30 days nebulizers As directed oxycodone 10 mg PO Q6H oxycodone ER (OxyContin) 10 mg PO BID Oxygen Home Use As directed [probiotics PO] sertraline 25 mg PO DAILY sodium chloride 7% 4 mL inhalation BID theophylline ER 400 mg PO DAILY warfarin 2.5 mg See Protocol PO DAILY Nursing Note INR 1.8-? out of therapeutic range of 2.0-3.0 Medications and supplements reviewed Patient status: pt cont on antibiotics for bacterial infection from dog, pt c.o fatigue and weight loss Medications or supplements: augmentin bid for 8 days, started on 02/08/23 finished doxycycline 100mg on 02/07/23 Diet: same Denies any signs and symptoms of bleeding or clotting or unusual bruising Bleeding, bruising, clotting discussed Nutritional guidance given: no greens for 2 days Dose: pt states took 2.5mg on monday last week. will take 3.75mg today then cont reg dosing, 3.75mg x 1. 2.5mg x6 F/U INR Date : 1 week? Patient verbalizing understanding of instructions given. 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
[2023-02-14 13:28] LABS: Prothrombin Time Whole Bld POC 22.1 sec (11.1-13.5); ~PT, ~INR - Anti Coag Clinic 1.8 (0.9-1.1)
== END 2023-02-14 13:37 | disposition home or self-care (01) ==
LOC: HO.ACS 13:15
PROVIDERS: PCP Hospitalist; Visit Provider Internal Medicine
DX: Z79.01 Long term (current) use of anticoagulants (principal)

== ENCOUNTER → 2023-02-14 13:15 | Outpatient (BNVA) | payer MEDICARE, SELFPAY | PROVIDERS: PCP Hospitalist; Visit Provider Internal Medicine | DX: Z86.73 Personal history of transient ischemic attack (TIA), and cerebral infarction without residual deficits (principal); Z79.01 Long term (current) use of anticoagulants; Z51.81 Encounter for therapeutic drug level monitoring | CPT/HCPCS: 85610; 99211 ==

== ENCOUNTER 2023-02-23 13:03 | Outpatient (AMB) | payer MEDICARE, SELFPAY ==
[2023-02-23 13:13] LABS: Prothrombin Time Whole Bld POC 18.6 sec (11.1-13.5); ~PT, ~INR - Anti Coag Clinic 1.6 (0.9-1.1)
--- NOTE | 2023-02-23 13:24 | MHC.OFFVISCO ---
Intake Intake Visit Reasons: Anticoagulation Allergies bupropion [From Wellbutrin] Allergy (Intermediate, Verified 02/23/23 13:06) Nausea levofloxacin [From LEVAQUIN] Allergy (Intermediate, Verified 02/23/23 13:06) GI UPSET/ WEIGHT LOSS, anaphylaxis ibuprofen Allergy (Mild, Verified 02/23/23 13:06) GI DISTRESS Medication List - Last Reconciled 02/23/23 by Cherrie Parker RN acetaminophen 500 mg PO Q6H PRN albuterol sulfate 90 mcg/actuation 1 inh PO Q4H PRN albuterol sulfate 90 mcg/actuation 2 puffs PO Q6H PRN albuterol sulfate 2.5 mg (3 mL) continuous nebulization QID PRN aspirin 81 mg PO DAILY atorvastatin 20 mg PO DAILY azithromycin 250 mg PO 3XW 28 days calcium citrate 500 mg (2 x 250 mg calcium) PO BID 90 days carvedilol 3.125 mg PO BID cholecalciferol (vitamin D3) 100 mcg (2 x 50 mcg (2,000 unit)) PO DAILY 90 days diltiazem HCl 120 mg PO BID doxycycline monohydrate 100 mg PO BID 30 days fluticasone propion-salmeterol 250-50 mcg/dose (Wixela Inhub) 1 inh inhalation Q12H 30 days qjwhelwnfpj-nyywsfytl-xkzlqmpl 200-62.5-25 mcg (Trelegy Ellipta) 1 inh inhalation DAILY 30 days nebulizers As directed oxycodone 10 mg PO Q6H oxycodone ER (OxyContin) 10 mg PO BID Oxygen Home Use As directed [probiotics PO] sertraline 25 mg PO DAILY sodium chloride 7% 4 mL inhalation BID theophylline ER 400 mg PO DAILY warfarin 2.5 mg See Protocol PO DAILY Nursing Note INR 1.6 out of therapeutic range Medications and supplements reviewed Patient status: 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 Patient verbalizing understanding of instructions given. 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
== END 2023-02-23 13:30 | disposition home or self-care (01) ==
LOC: HO.ACS 13:03
PROVIDERS: PCP Hospitalist; Visit Provider Internal Medicine
DX: Z79.01 Long term (current) use of anticoagulants (principal)

== ENCOUNTER → 2023-02-23 13:03 | Outpatient (BNVA) | payer MEDICARE, SELFPAY | PROVIDERS: PCP Hospitalist; Visit Provider Internal Medicine | DX: Z86.73 Personal history of transient ischemic attack (TIA), and cerebral infarction without residual deficits (principal); Z79.01 Long term (current) use of anticoagulants; Z51.81 Encounter for therapeutic drug level monitoring | CPT/HCPCS: 85610; 99211 ==

== ENCOUNTER 2023-02-27 16:43 | Outpatient (REF) | payer MEDICARE, SELFPAY | END 2023-02-27 16:44 | disposition home or self-care (01) | LOC: HO.LNP 16:43 | PROVIDERS: Visit Provider Hospitalist | DX: J47.9 Bronchiectasis, uncomplicated (principal) | CPT/HCPCS: 87070; 87205 ==

== ENCOUNTER 2023-03-03 15:35 | Outpatient (REF) | payer MEDICARE, SELFPAY ==
--- NOTE | 2023-03-03 16:12 | PFT_ITS ---
Forced vital capacity 57%, FEV1 23%, FEV1/FVC ratio is 31. [id number] 10% and MVV 19%. Post bronchodilator therapy, there is no significant change. Total lung capacity 95%. Residual volume 154%. Diffusion capacity 36%. CONCLUSION: Very severe obstructive airway disorder with evidence of air trapping. There is no response to bronchodilator therapy. Clinical correlation is recommended. MD ADITYA Hillman/MODL / [phone]
== END 2023-03-03 15:36 | disposition home or self-care (01) ==
LOC: HO.RESP 15:35
PROVIDERS: PCP Hospitalist; Visit Provider Hospitalist
DX: J44.9 Chronic obstructive pulmonary disease, unspecified (principal)
CPT/HCPCS: 94010; 94727; 94729

== ENCOUNTER → 2023-03-03 16:12 | Outpatient (BNV) | payer MEDICARE, SELFPAY | PROVIDERS: PCP Hospitalist; Visit Provider Internal Medicine | DX: J44.9 Chronic obstructive pulmonary disease, unspecified (principal) | CPT/HCPCS: 94060; 94727; 94729 ==

== ENCOUNTER 2023-03-06 13:03 | Outpatient (AMB) | payer MEDICARE, SELFPAY ==
[2023-03-06 13:14] LABS: Prothrombin Time Whole Bld POC 23.9 sec (11.1-13.5)
--- NOTE | 2023-03-06 13:27 | MHC.OFFVISCO ---
Intake Intake Visit Reasons: Anticoagulation Allergies bupropion [From Wellbutrin] Allergy (Intermediate, Verified 03/06/23 13:17) Nausea levofloxacin [From LEVAQUIN] Allergy (Intermediate, Verified 03/06/23 13:17) GI UPSET/ WEIGHT LOSS, anaphylaxis ibuprofen Allergy (Mild, Verified 03/06/23 13:17) GI DISTRESS Medication List - Last Reconciled 03/06/23 by Cherrie Parker RN acetaminophen 500 mg PO Q6H PRN albuterol sulfate 90 mcg/actuation 1 inh PO Q4H PRN albuterol sulfate 90 mcg/actuation 2 puffs PO Q6H PRN albuterol sulfate 2.5 mg (3 mL) continuous nebulization QID PRN aspirin 81 mg PO DAILY atorvastatin 20 mg PO DAILY azithromycin 250 mg PO 3XW 28 days calcium citrate 500 mg (2 x 250 mg calcium) PO BID 90 days carvedilol 3.125 mg PO BID cholecalciferol (vitamin D3) 100 mcg (2 x 50 mcg (2,000 unit)) PO DAILY 90 days diltiazem HCl 120 mg PO BID doxycycline monohydrate 100 mg PO BID 30 days fluticasone propion-salmeterol 250-50 mcg/dose (Wixela Inhub) 1 inh inhalation Q12H 30 days viicjqrogjw-lgioncfis-flftcxjs 200-62.5-25 mcg (Trelegy Ellipta) 1 inh inhalation DAILY 30 days nebulizers As directed oxycodone 10 mg PO Q6H oxycodone ER (OxyContin) 10 mg PO BID Oxygen Home Use As directed [probiotics PO] sertraline 25 mg PO DAILY sodium chloride 7% 4 mL inhalation BID theophylline ER 400 mg PO DAILY warfarin 2.5 mg See Protocol PO DAILY Nursing Note INR: 2.0 in therapeutic range Medications and supplements reviewed- HE HAS AN ORDER FOR MEGESTEROL EHCIH CAN GREATLY EFFECT THE INR - HE WAS STRONGHLY INSTRUCTED TO CALL [facility] IF HE STARTS IT * STILL ON DOXYCYCLINE 10 MORE DAYS, HOLDING OFF ON THE AZITHROMYCIN UNTIL DOXY COMPLETE STATES HE HAS BEEN HAVING A CARDIO WORK UP - IT WAS EXPLAINED THAT SOME ANTIBIOTICS CAN EFFECT THE HEART RTHYM AND TO DISCUSS WITH MD Denies any signs and symptoms of bleeding or bruising or clotting. 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
== END 2023-03-06 13:43 | disposition home or self-care (01) ==
LOC: HO.ACS 13:03
PROVIDERS: PCP Hospitalist; Visit Provider Internal Medicine
DX: Z79.01 Long term (current) use of anticoagulants (principal)

== ENCOUNTER → 2023-03-06 13:03 | Outpatient (BNVA) | payer MEDICARE, SELFPAY | PROVIDERS: PCP Hospitalist; Visit Provider Internal Medicine | DX: Z86.73 Personal history of transient ischemic attack (TIA), and cerebral infarction without residual deficits (principal); Z79.01 Long term (current) use of anticoagulants; Z51.81 Encounter for therapeutic drug level monitoring | CPT/HCPCS: 85610; 99211 ==

== ENCOUNTER 2023-03-22 13:03 | Outpatient (AMB) | payer MEDICARE, SELFPAY ==
--- NOTE | 2023-03-22 13:14 | MHC.OFFVISCO ---
Intake Intake Visit Reasons: Anticoagulation Allergies bupropion [From Wellbutrin] Allergy (Intermediate, Verified 03/22/23 13:04) Nausea levofloxacin [From LEVAQUIN] Allergy (Intermediate, Verified 03/22/23 13:04) GI UPSET/ WEIGHT LOSS, anaphylaxis ibuprofen Allergy (Mild, Verified 03/22/23 13:04) GI DISTRESS Medication List - Last Reconciled 03/22/23 by Cherrie Parker RN acetaminophen 500 mg PO Q6H PRN albuterol sulfate 90 mcg/actuation 1 inh PO Q4H PRN albuterol sulfate 90 mcg/actuation 2 puffs PO Q6H PRN albuterol sulfate 2.5 mg (3 mL) continuous nebulization QID PRN aspirin 81 mg PO DAILY atorvastatin 20 mg PO DAILY azithromycin 250 mg PO 3XW 28 days calcium citrate 500 mg (2 x 250 mg calcium) PO BID 90 days carvedilol 3.125 mg PO BID cholecalciferol (vitamin D3) 100 mcg (2 x 50 mcg (2,000 unit)) PO DAILY 90 days diltiazem HCl 120 mg PO BID doxycycline monohydrate 100 mg PO BID 30 days fluticasone propion-salmeterol 250-50 mcg/dose (Wixela Inhub) 1 inh inhalation Q12H 30 days omsydaqrllo-qqudyjrll-hbbyivlk 200-62.5-25 mcg (Trelegy Ellipta) 1 inh inhalation DAILY 30 days nebulizers As directed oxycodone 10 mg PO Q6H oxycodone ER (OxyContin) 10 mg PO BID Oxygen Home Use As directed [probiotics PO] sertraline 25 mg PO DAILY sodium chloride 7% 4 mL inhalation BID theophylline ER 400 mg PO DAILY warfarin 2.5 mg See Protocol PO DAILY Nursing Note resp therapy rehab x 3 times now he has stopped the antibiotics for now - states he thinks they were making him feel worse He has not started the megesterol - has an improved appetite now He was not taking the correct warfarin dose 3.75mg only 1 day instead of 2 days INR 1.6?? out of therapeutic range Medications and supplements reviewed Patient status: doing better Medications or supplements: off antibiotics Diet: ok Denies any signs and symptoms of bleeding or clotting or unusual bruising Bleeding, bruising, clotting discussed Nutritional guidance given: avoid greens x 2 days, eat orange and reds to help raise the INR Dose: try dose again 3.75mg x 2 days/ 2.5mg x 5 days F/U INR Date : 03/30/23 ?? Patient verbalizing understanding of instructions given. 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
[2023-03-23 08:37] LABS: Prothrombin Time Whole Bld POC 19.3 sec (11.1-13.5); ~PT, ~INR - Anti Coag Clinic 1.6 (0.9-1.1)
== END 2023-03-22 13:28 | disposition home or self-care (01) ==
LOC: HO.ACS 13:03
PROVIDERS: PCP Hospitalist; Visit Provider Internal Medicine
DX: Z79.01 Long term (current) use of anticoagulants (principal)

== ENCOUNTER → 2023-03-22 13:03 | Outpatient (BNVA) | payer MEDICARE, SELFPAY | PROVIDERS: PCP Hospitalist; Visit Provider Internal Medicine | DX: Z86.73 Personal history of transient ischemic attack (TIA), and cerebral infarction without residual deficits (principal); Z79.01 Long term (current) use of anticoagulants; Z51.81 Encounter for therapeutic drug level monitoring | CPT/HCPCS: 85610; 99211 ==

== ENCOUNTER 2023-03-30 13:09 | Outpatient (AMB) | payer MEDICARE, SELFPAY ==
[2023-03-30 13:38] LABS: Prothrombin Time Whole Bld POC 19.2 sec (11.1-13.5); ~PT, ~INR - Anti Coag Clinic 1.6 (0.9-1.1)
--- NOTE | 2023-03-30 13:47 | MHC.OFFVISCO ---
Intake Intake Visit Reasons: Anticoagulation Allergies bupropion [From Wellbutrin] Allergy (Intermediate, Verified 03/30/23 13:31) Nausea levofloxacin [From LEVAQUIN] Allergy (Intermediate, Verified 03/30/23 13:31) GI UPSET/ WEIGHT LOSS, anaphylaxis ibuprofen Allergy (Mild, Verified 03/30/23 13:31) GI DISTRESS Medication List - Last Reconciled 03/30/23 by Cherrie Parker RN acetaminophen 500 mg PO Q6H PRN albuterol sulfate 90 mcg/actuation 1 inh PO Q4H PRN albuterol sulfate 90 mcg/actuation 2 puffs PO Q6H PRN albuterol sulfate 2.5 mg (3 mL) continuous nebulization QID PRN aspirin 81 mg PO DAILY atorvastatin 20 mg PO DAILY azithromycin 250 mg PO 3XW 28 days calcium citrate 500 mg (2 x 250 mg calcium) PO BID 90 days carvedilol 3.125 mg PO BID cholecalciferol (vitamin D3) 100 mcg (2 x 50 mcg (2,000 unit)) PO DAILY 90 days diltiazem HCl 120 mg PO BID doxycycline monohydrate 100 mg PO BID 30 days fluticasone propion-salmeterol 250-50 mcg/dose (Wixela Inhub) 1 inh inhalation Q12H 30 days mlitfasrksd-ofzjkrpsz-xuprppzn 200-62.5-25 mcg (Trelegy Ellipta) 1 inh inhalation DAILY 30 days nebulizers As directed oxycodone 10 mg PO Q6H oxycodone ER (OxyContin) 10 mg PO BID Oxygen Home Use As directed [probiotics PO] sertraline 25 mg PO DAILY sodium chloride 7% 4 mL inhalation BID theophylline ER 400 mg PO DAILY warfarin 2.5 mg See Protocol PO DAILY Nursing Note INR 1.6?? out of therapeutic range Medications and supplements reviewed Patient status: RESP REHAB, NOT SURE WHY LELVEL LOW - POSSIBLY GREENS FROM SOUP Medications or supplements: NOT TAKING MEGACE - Diet: HAS AN APPETITE Denies any signs and symptoms of bleeding or clotting or unusual bruising Bleeding, bruising, clotting discussed Nutritional guidance given: AVOID GREENS X 2 DAYS, EAT ORANGE AND REDSDose: [] F/U INR Date- 2 WEEKS PT REFUSED SOONER APPT DOSE : INCREASE WEEKLY DOSE 3.75MG X 3 DAYS/ 2.5MG X 4 DAYS ?? Patient verbalizing understanding of instructions given. Anti-Coag Initial Assessment Social Hx Patient Tobacco Use Status: Former Tobacco user Tobacco use type: Cigarette Alcohol intake frequency: does not drink Coding Level of Care Code Est Patient Level 1 Diagnoses Current use of anticoagulant therapy Z79.01 Assessment & Plan Assessment & Plan (1) Current use of anticoagulant therapy: Code(s): Z79.01 - shelter (current) use of 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
== END 2023-03-30 13:49 | disposition home or self-care (01) ==
LOC: HO.ACS 13:09
PROVIDERS: PCP Hospitalist; Visit Provider Internal Medicine
DX: Z79.01 Long term (current) use of anticoagulants (principal)

== ENCOUNTER → 2023-03-30 13:09 | Outpatient (BNVA) | payer MEDICARE, SELFPAY | PROVIDERS: PCP Hospitalist; Visit Provider Internal Medicine | DX: Z86.73 Personal history of transient ischemic attack (TIA), and cerebral infarction without residual deficits (principal); Z79.01 Long term (current) use of anticoagulants; Z51.81 Encounter for therapeutic drug level monitoring | CPT/HCPCS: 85610; 99211 ==

== ENCOUNTER 2023-04-13 13:05 | Outpatient (AMB) | payer MEDICARE, SELFPAY ==
[2023-04-13 13:11] LABS: Prothrombin Time Whole Bld POC 22.8 sec (11.1-13.5); ~PT, ~INR - Anti Coag Clinic 1.9 (0.9-1.1)
--- NOTE | 2023-04-13 13:14 | MHC.OFFVISCO ---
Intake Intake Visit Reasons: Anticoagulation Allergies bupropion [From Wellbutrin] Allergy (Intermediate, Verified 04/13/23 13:06) Nausea levofloxacin [From LEVAQUIN] Allergy (Intermediate, Verified 04/13/23 13:06) GI UPSET/ WEIGHT LOSS, anaphylaxis ibuprofen Allergy (Mild, Verified 04/13/23 13:06) GI DISTRESS Medication List - Last Reconciled 04/13/23 by Mira Antonio RN acetaminophen 500 mg PO Q6H PRN albuterol sulfate 90 mcg/actuation 1 inh PO Q4H PRN albuterol sulfate 90 mcg/actuation 2 puffs PO Q6H PRN albuterol sulfate 2.5 mg (3 mL) continuous nebulization QID PRN aspirin 81 mg PO DAILY atorvastatin 20 mg PO DAILY azithromycin 250 mg PO 3XW 28 days calcium citrate 500 mg (2 x 250 mg calcium) PO BID 90 days carvedilol 3.125 mg PO BID cholecalciferol (vitamin D3) 100 mcg (2 x 50 mcg (2,000 unit)) PO DAILY 90 days diltiazem HCl 120 mg PO BID doxycycline monohydrate 100 mg PO BID 30 days fluticasone propion-salmeterol 250-50 mcg/dose (Wixela Inhub) 1 inh inhalation Q12H 30 days rtkygmtnkoj-mjplaqwrz-dwuqjmuw 200-62.5-25 mcg (Trelegy Ellipta) 1 inh inhalation DAILY 30 days nebulizers As directed oxycodone 10 mg PO Q6H oxycodone ER (OxyContin) 10 mg PO BID Oxygen Home Use As directed [probiotics PO] sertraline 25 mg PO DAILY sodium chloride 7% 4 mL inhalation BID theophylline ER 400 mg PO DAILY warfarin 2.5 mg See Protocol PO DAILY Nursing Note Amb to [facility] feeling well, has his O2 tank however sts he has not been using it as much sts he is on his way to pulmonary rehab Medications and supplements reviewed, previous lows and recent dosing increase No other changes in health, diet, medications, or supplements Denies any unusual signs and symptoms of bruising, bleeding Denies any new Chest pain, SOB, or clotting INR: 1.9 in therapeutic range Nutritional guidance given: balance greens and reds in diet, not a green eater Dose: increase dose today to 5mg then resume new usual dosing : 3.75mg x 3 days and 2.5mg x 4 days F/U INR: 2 weeks Patient verbalizes understanding of instructions given with accurate read back/ teach back of dosing Anti-Coag Initial Assessment Social Hx Patient Tobacco Use Status: Former Tobacco user Tobacco use type: Cigarette Alcohol intake frequency: does not drink Questionnaires HAS-BLED Does the patient had uncontrolled Hypertension?: No Does the patient have renal disease?: No Does the patient have liver disease?: No Does the patient have a history of stroke?: Yes Has the patient had major bleeding or predisposition to bleeding?: No Does the patient have labile INRs?: Yes Is the patient over 65 years of age?: Yes Is the patient on medications that gives them a predisposition to bleeding?: Yes Does the patient use alcohol?: No HAS-BLED Score: 4 CHADSVASC Age: 66-74 Gender: Male Does the patient have a history of CHF?: No Does the patient have a history of Hypertension?: No Does the patient have a history of Stroke/TIA/Thromboembolism?: Yes Does the patient have a history of Vascular Disease (prior MT, PAD or aortic plaque)?: No Does the patient have a history of Diabetes?: No CHADS VACS Score: 3 Mateo Prediction Score Rsk VTE Active Cancer: No Previous VTE, excluding superficial vein thrombosis: Yes Reduced mobility: No Already known Thrombophilic Condition: Yes With-in last month Trauma and/or Surgery: No Elderly 70 year or older: Yes Heart and/or Respiratory Failure: No Acute Myocardial infarction and/or Ischemic Stroke: Yes Acute Infection and/or Rheumatologic Disorder: No Obesity (BMI 30 or greater): No Ongoing Hormonal Treatment: Yes Score: 9 Mateo Score less than 4; Low Risk of VTE Mateo Score 4 or greater; High Risk of VTE Coding Level of Care Code Est Patient Level 1 Diagnoses Current use of anticoagulant therapy Z79.01 Time Spent (min) 15 Assessment & Plan Assessment & Plan (1) Current use of anticoagulant therapy: Code(s): 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
== END 2023-04-13 13:28 | disposition home or self-care (01) ==
LOC: HO.ACS 13:05
PROVIDERS: PCP Hospitalist; Visit Provider Internal Medicine
DX: Z79.01 Long term (current) use of anticoagulants (principal)

== ENCOUNTER → 2023-04-13 13:05 | Outpatient (BNVA) | payer MEDICARE, SELFPAY | PROVIDERS: PCP Hospitalist; Visit Provider Internal Medicine | DX: Z86.73 Personal history of transient ischemic attack (TIA), and cerebral infarction without residual deficits (principal); Z79.01 Long term (current) use of anticoagulants; Z51.81 Encounter for therapeutic drug level monitoring | CPT/HCPCS: 85610; 99211 ==

== ENCOUNTER 2023-04-27 13:02 | Outpatient (AMB) | payer MEDICARE, SELFPAY ==
--- NOTE | 2023-04-27 13:31 | MHC.OFFVISCO ---
Intake Intake Visit Reasons: Anticoagulation Allergies bupropion [From Wellbutrin] Allergy (Intermediate, Verified 04/27/23 13:17) Nausea levofloxacin [From LEVAQUIN] Allergy (Intermediate, Verified 04/27/23 13:17) GI UPSET/ WEIGHT LOSS, anaphylaxis ibuprofen Allergy (Mild, Verified 04/27/23 13:17) GI DISTRESS Medication List - Last Reconciled 04/27/23 by Cherrie Parker RN acetaminophen 500 mg PO Q6H PRN albuterol sulfate 90 mcg/actuation 1 inh PO Q4H PRN albuterol sulfate 90 mcg/actuation 2 puffs PO Q6H PRN albuterol sulfate 2.5 mg (3 mL) continuous nebulization QID PRN aspirin 81 mg PO DAILY atorvastatin 20 mg PO DAILY azithromycin 250 mg PO 3XW 28 days calcium citrate 500 mg (2 x 250 mg calcium) PO BID 90 days carvedilol 3.125 mg PO BID cholecalciferol (vitamin D3) 100 mcg (2 x 50 mcg (2,000 unit)) PO DAILY 90 days diltiazem HCl 120 mg PO BID doxycycline monohydrate 100 mg PO BID 30 days fluticasone propion-salmeterol 250-50 mcg/dose (Wixela Inhub) 1 inh inhalation Q12H 30 days dawvzeinanj-owqyyatwn-mxqbrzme 200-62.5-25 mcg (Trelegy Ellipta) 1 inh inhalation DAILY 30 days nebulizers As directed oxycodone 10 mg PO Q6H oxycodone ER (OxyContin) 10 mg PO BID Oxygen Home Use As directed [probiotics PO] sertraline 25 mg PO DAILY sodium chloride 7% 4 mL inhalation BID theophylline ER 400 mg PO DAILY warfarin 2.5 mg See Protocol PO DAILY Nursing Note INR: 1.9 in therapeutic range Medications and supplements reviewed ILL WITH URI, HE HAS GAINED 5 LBS DRINKING ENSURE / BOOST- HE LIKES IT, ENC TO ASK MD FOR RX Denies any signs and symptoms of bleeding or bruising or clotting. Bleeding, bruising, clotting discussed Nutritional guidance given Dose: INCREASE WEEKLY DOSE DUE TO LOW INR 3.75MG X 4 DAYS/ 2.5MG MWF F/U INR: 2 WEEKS Patient verbalizes understanding of instructions given Anti-Coag Initial Assessment Social Hx Patient Tobacco Use Status: Former Tobacco user Tobacco use type: Cigarette Alcohol intake frequency: does not drink Coding Level of Care Code Est Patient Level 1 Diagnoses Current use of anticoagulant therapy Z79.01 Results AMB INR Fingerstick AMB INR Fingerstick 1.9 Last Edit by Cherrie Parker RN on 04/27/23 13:24 MANUAL ENTRY Assessment & Plan Assessment & Plan (1) Current use of anticoagulant therapy: Code(s): Z79.01 - group home (current) use of 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 Medications: New [ENSURE / BOOST] PO DAILY
== END 2023-04-27 13:35 | disposition home or self-care (01) ==
LOC: HO.ACS 13:02
PROVIDERS: PCP Hospitalist; Visit Provider Internal Medicine
DX: Z79.01 Long term (current) use of anticoagulants (principal)

== ENCOUNTER → 2023-04-27 13:02 | Outpatient (BNVA) | payer MEDICARE, SELFPAY | PROVIDERS: PCP Hospitalist; Visit Provider Internal Medicine | DX: Z86.73 Personal history of transient ischemic attack (TIA), and cerebral infarction without residual deficits (principal); Z79.01 Long term (current) use of anticoagulants; Z51.81 Encounter for therapeutic drug level monitoring | CPT/HCPCS: 85610; 99211 ==

== ENCOUNTER 2023-05-16 13:16 | Outpatient (AMB) | payer MEDICARE, SELFPAY ==
[2023-05-16 13:36] LABS: Prothrombin Time Whole Bld POC 18.4 sec (11.1-13.5); ~PT, ~INR - Anti Coag Clinic 1.5 (0.9-1.1)
--- NOTE | 2023-05-16 13:38 | MHC.OFFVISCO ---
Intake Intake Visit Reasons: Anticoagulation Allergies bupropion [From Wellbutrin] Allergy (Intermediate, Verified 05/16/23 13:26) Nausea levofloxacin [From LEVAQUIN] Allergy (Intermediate, Verified 05/16/23 13:26) GI UPSET/ WEIGHT LOSS, anaphylaxis ibuprofen Allergy (Mild, Verified 05/16/23 13:26) GI DISTRESS Medication List - Last Reconciled 05/16/23 by Millie Rodriguez RN acetaminophen 500 mg PO Q6H PRN albuterol sulfate 90 mcg/actuation 1 inh PO Q4H PRN albuterol sulfate 90 mcg/actuation 2 puffs PO Q6H PRN albuterol sulfate 2.5 mg (3 mL) continuous nebulization QID PRN aspirin 81 mg PO DAILY atorvastatin 20 mg PO DAILY azithromycin 250 mg PO 3XW 28 days calcium citrate 500 mg (2 x 250 mg calcium) PO BID 90 days carvedilol 3.125 mg PO BID cholecalciferol (vitamin D3) 100 mcg (2 x 50 mcg (2,000 unit)) PO DAILY 90 days diltiazem HCl 120 mg PO BID doxycycline monohydrate 100 mg PO BID 30 days [ENSURE / BOOST PO DAILY] fluticasone propion-salmeterol 250-50 mcg/dose (Wixela Inhub) 1 inh inhalation Q12H 30 days gqcdjmnbgbs-vfxvxrtlg-jqsvgyto 200-62.5-25 mcg (Trelegy Ellipta) 1 inh inhalation DAILY 30 days nebulizers As directed oxycodone 10 mg PO Q6H oxycodone ER (OxyContin) 10 mg PO BID Oxygen Home Use As directed [probiotics PO] sertraline 25 mg PO DAILY sodium chloride 7% 4 mL inhalation BID theophylline ER 400 mg PO DAILY warfarin 2.5 mg See Protocol PO DAILY Nursing Note INR 1.5-? out of therapeutic range of 2-3 Medications and supplements reviewed Patient status: pt states was not feeling well, went to pcp on 04/28/23- took azithromycin and prednisone 10mg dly x 5 covid positive on 05/03/23- did not take the paxlovid. pt states blood in urine 05/11/23 and 05/12/23- pcp made aware- u/a to [facility] lab- 05/12/23, urine clear 05/13/23 pt started on amoxicillin 500mg q 8 hours for 7 days Medications or supplements: on amoxicillin Diet: appetite good, boost prn Denies any signs and symptoms of bleeding or clotting or unusual bruising Bleeding, bruising, clotting discussed Nutritional guidance given: no greens for 2 days Dose: pt self dosed warfarin - on mon05/12/23 he took 1.25mg, on 05/13/23, 05/14/23, 05/15/23 he took 2.5mg pt to take 3.75mg today marleen F/U INR Date : monday05/19/23?? Patient verbalizing understanding of instructions given. multiple attempts to call pcp office- on hold greater than 25 minutes x 2. faxed note sent to office- v/janna for return call- [facility] called with low inr/dosing and f/u appt. aware of pt c.o. 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
== END 2023-05-16 14:34 | disposition home or self-care (01) ==
LOC: HO.ACS 13:16
PROVIDERS: PCP Hospitalist; Visit Provider Internal Medicine
DX: Z79.01 Long term (current) use of anticoagulants (principal)

== ENCOUNTER → 2023-05-16 13:16 | Outpatient (BNVA) | payer MEDICARE, SELFPAY | PROVIDERS: PCP Hospitalist; Visit Provider Internal Medicine | DX: Z86.73 Personal history of transient ischemic attack (TIA), and cerebral infarction without residual deficits (principal); Z79.01 Long term (current) use of anticoagulants; Z51.81 Encounter for therapeutic drug level monitoring | CPT/HCPCS: 85610; 99212 ==

== ENCOUNTER 2023-05-19 13:53 | Outpatient (AMB) | payer MEDICARE, SELFPAY ==
[2023-05-19 14:06] LABS: Prothrombin Time Whole Bld POC 23.7 sec (11.1-13.5)
--- NOTE | 2023-05-19 14:15 | MHC.OFFVISCO ---
Intake Intake Visit Reasons: Anticoagulation Allergies bupropion [From Wellbutrin] Allergy (Intermediate, Verified 05/19/23 14:02) Nausea levofloxacin [From LEVAQUIN] Allergy (Intermediate, Verified 05/19/23 14:02) GI UPSET/ WEIGHT LOSS, anaphylaxis ibuprofen Allergy (Mild, Verified 05/19/23 14:02) GI DISTRESS Nursing Note PT TO [facility] FEELING BETTER. NO FURTHER HEMATURIA. COMPLETED AMOXICILLIN AND INCREASED WARFARIN PAST 3 DAYS THEN NO OTHER MED CHANGES. NO OTHER UNUSUAL BLLEDING OR BRUISING. NO CHEST PAIN OR UNUSUAL SOB. INR 2.0 LOW END OF RANGE. KEEP USUAL DOSING 2.5MG X 3 DAYS, 3.75MG X4 DAYS. BALANCE GREENS AND REDS IN DIET. F/U IN 2 WEEKS. VERBALIZES UNDERSTANDING. 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
== END 2023-05-19 14:24 | disposition home or self-care (01) ==
LOC: HO.ACS 13:53
PROVIDERS: PCP Hospitalist; Visit Provider Internal Medicine
DX: Z79.01 Long term (current) use of anticoagulants (principal)

== ENCOUNTER → 2023-05-19 13:53 | Outpatient (BNVA) | payer MEDICARE, SELFPAY | PROVIDERS: PCP Hospitalist; Visit Provider Internal Medicine | DX: Z86.73 Personal history of transient ischemic attack (TIA), and cerebral infarction without residual deficits (principal); Z79.01 Long term (current) use of anticoagulants; Z51.81 Encounter for therapeutic drug level monitoring | CPT/HCPCS: 85610; 99212 ==

== ENCOUNTER 2023-06-01 13:23 | Outpatient (REF) | payer MEDICARE, SELFPAY ==
[2023-06-01 15:08] LABS: MANUAL DIFF FLAG NO
[2023-06-01 15:24] LABS: Basophils Absolute Auto 0.1 X10*3/uL (0.0-0.2); Basophils Percent Auto 0.8 % (0-2); Eosinophils Absolute Auto 0.1 X10*3/uL (0.0-0.4); Eosinophils Percent Auto 1.1 % (0-4); Hematocrit 35.9 % (42.0-52.0); Hemoglobin 11.6 g/dl (14.0-18.0); Imm Gran Abs Auto 0.03 X10*3/uL (0.00-0.03); Imm Gran Pct Auto 0.4 % (0.0-0.4); Lymphocytes Absolute Auto 2.1 X10*3/uL (1.2-4.9); Mean Corpuscular HGB Conc 32.3 g/dl (31.0-36.0); Mean Corpuscular Hemoglobin 30.6 pg (27.0-33.0); Mean Corpuscular Volume 94.7 fL (80.0-98.0); Mean Platelet Volume 9.8 fL (9.4-12.4); Monocytes Absolute Auto 0.7 X10*3/uL (0.1-1.2); Monocytes Percent Auto 9.1 % (2-11); Neutrophils Absolute Auto 4.6 x10*3/uL (2.0-8.3); Neutrophils Percent Auto 60.6 % (45-73); Platelet Count 247 X10*3/uL (160-400); Red Blood Count 3.79 X10*6/uL (4.60-5.80); Red Cell Distribution Width 13.4 % (11.0-16.0); White Blood Count 7.6 X10*3/uL (4.8-10.8)
[2023-06-01 15:32] LABS: INTERNATIONAL NORM RATIO 2.1 (0.9-1.1); Prothrombin Time 25.5 SEC (11.1-13.3)
[2023-06-01 15:58] LABS: Erythrocyte Sedimentation Rate 18 MM/HR (0-15)
[2023-06-01 15:58] LABS: Appearance Urine Turbid; Color Urine Dark Yellow; Glucose Urine UA Negative (Negative); Leukocyte Esterase Urine Small (1+) (Negative); Nitrite Urine Negative (Negative); Specific Gravity - Urine 1.025 (1.005-1.025); UMIC TRIGGER UACC YES; Urine Blood Large (3+) (Negative); Urine Ketones Negative (Negative); Urine Protein 30 (1+) mg/dL (Neg-Trace)
[2023-06-01 16:04] LABS: Alanine Aminotransferase 11 U/L (0-40); Albumin Level 3.6 g/dL (3.5-5.0); Alkaline Phosphatase 73 U/L (39-117); Anion Gap 12 (12-20); Aspartate Amino Transferase 15 U/L (5-37); Bilirubin Direct 0.1 mg/dL (0.0-0.5); Bilirubin Total 0.3 mg/dL (0.0-1.0); Blood Urea Nitrogen 11 mg/dL (9-16); Calcium 9.2 mg/dL (8.4-10.2); Carbon Dioxide 27 mmol/L (22-29); Chloride 105 mmol/L (96-108); Estimated Glomerular Filt Rate > 60; Glucose Random 166 mg/dL (60-115); Potassium 3.6 mmol/L (3.3-5.1); Sodium 140 mmol/L (135-145); Total Protein 6.4 g/dL (6.5-8.0)
[2023-06-01 16:12] LABS: Bacteria Urine None Seen (None Seen); Other Crystals Urine Present; RBC Urine >20 /HPF (0-2); UACC Culture Trigger YES; WBC Urine 0-5 /HPF (0-5)
== END 2023-06-01 13:24 | disposition home or self-care (01) ==
LOC: HO.LAB 13:23
PROVIDERS: PCP Hospitalist; Visit Provider Internal Medicine
DX: Z86.73 Personal history of transient ischemic attack (TIA), and cerebral infarction without residual deficits (principal); J44.1 Chronic obstructive pulmonary disease with (acute) exacerbation; J47.9 Bronchiectasis, uncomplicated; R06.09 Other forms of dyspnea; Z51.81 Encounter for therapeutic drug level monitoring; Z79.01 Long term (current) use of anticoagulants; R82.90 Unspecified abnormal findings in urine
CPT/HCPCS: 36415; 80048; 80076; 81001; 85025; 85610; 85652; 87086; 99211; 99212

== ENCOUNTER 2023-06-01 13:23 | Outpatient (AMB) | payer MEDICARE, SELFPAY ==
[2023-06-01 13:39] LABS: Prothrombin Time Whole Bld POC 27.5 sec (11.1-13.5); ~PT, ~INR - Anti Coag Clinic 2.3 (0.9-1.1)
--- NOTE | 2023-06-01 13:50 | MHC.OFFVISCO ---
Intake Intake Visit Reasons: Anticoagulation Allergies bupropion [From Wellbutrin] Allergy (Intermediate, Verified 06/01/23 13:26) Nausea levofloxacin [From LEVAQUIN] Allergy (Intermediate, Verified 06/01/23 13:26) GI UPSET/ WEIGHT LOSS, anaphylaxis ibuprofen Allergy (Mild, Verified 06/01/23 13:26) GI DISTRESS Medication List - Last Reconciled 06/01/23 by Mira Hurt, BLUE acetaminophen 500 mg PO Q6H PRN albuterol sulfate 90 mcg/actuation 1 inh PO Q4H PRN albuterol sulfate 90 mcg/actuation 2 puffs PO Q6H PRN albuterol sulfate 2.5 mg (3 mL) continuous nebulization QID PRN aspirin 81 mg PO DAILY atorvastatin 20 mg PO DAILY azithromycin 250 mg PO 3XW 28 days calcium citrate 500 mg (2 x 250 mg calcium) PO BID 90 days carvedilol 3.125 mg PO BID cholecalciferol (vitamin D3) 100 mcg (2 x 50 mcg (2,000 unit)) PO DAILY 90 days diltiazem HCl 120 mg PO BID doxycycline monohydrate 100 mg PO BID 30 days [ENSURE / BOOST PO DAILY] fluticasone propion-salmeterol 250-50 mcg/dose (Wixela Inhub) 1 inh inhalation Q12H 30 days bukwmiivncs-jlrdnvpjp-qjudpwpd 200-62.5-25 mcg (Trelegy Ellipta) 1 inh inhalation DAILY 30 days nebulizers As directed oxycodone 10 mg PO Q6H oxycodone ER (OxyContin) 10 mg PO BID Oxygen Home Use As directed [probiotics PO] sertraline 25 mg PO DAILY sodium chloride 7% 4 mL inhalation BID theophylline ER 400 mg PO DAILY warfarin 2.5 mg See Protocol PO DAILY Nursing Note INR: 2.3 in therapeutic range of 2-3 Medications and supplements reviewed, pt started self on doxycycline for cough (old prescription dated Jan) pt brought med bottle in, started 3 days ago, changes in health, diet, medications, or supplements: pt states has persistent cough, and also has rust colored urine. Bleeding, bruising, clotting discussed Nutritional guidance given Dose: dose decreased from 3.75mg to 2.5mg for today then to continue usual dose of 2.5mg X3 days and 3.75 mg X 4 days F/U INR: 1 week Patient verbalizes understanding of instructions given Dr Escamilla's office called and msg left to return call Anti-Coag Initial Assessment Social Hx Patient Tobacco Use Status: Former Tobacco user Tobacco use type: Cigarette Alcohol intake frequency: does not drink Coding Level of Care Code Est Patient Level 1 Diagnoses Current use of anticoagulant therapy Z79.01 Results AMB INR Fingerstick AMB INR Fingerstick 2.3 Last Edit by Mira Hurt RN on 06/01/23 13:42 interface delay Assessment & Plan Assessment & Plan (1) Current use of anticoagulant therapy: Code(s): Z79.01 - [facility] (current) use of 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
== END 2023-06-01 14:05 | disposition home or self-care (01) ==
LOC: HO.ACS 13:23
PROVIDERS: PCP Hospitalist; Visit Provider Internal Medicine
DX: Z79.01 Long term (current) use of anticoagulants (principal)

== ENCOUNTER 2023-06-01 14:26 | Outpatient (AMB) | payer MEDICARE, SELFPAY ==
--- NOTE | 2023-06-01 14:27 | A.OFFVIS_ITS ---
Intake Vital Signs 06/01/23 14:32 Height 5 ft 6 in Weight 110 lb BMI 17.8 BP 140/80 H Blood Pressure Location Lt brachial Position Sitting Pulse 112 H Pulse Oximetry (%) 96 Intake Visit Reasons: Obstructive sleep apnea Allergies bupropion [From Wellbutrin] Allergy (Intermediate, Verified 06/01/23 14:33) Nausea levofloxacin [From LEVAQUIN] Allergy (Intermediate, Verified 06/01/23 14:33) GI UPSET/ WEIGHT LOSS, anaphylaxis ibuprofen Allergy (Mild, Verified 06/01/23 14:33) GI DISTRESS HPI HPI Comments History of Present Illness Details The patient is a 73-year-old gentleman with a significant pulmonary history. the patient does have a history of lung cancer diagnosed back in 2019 status post right upper lobectomy. Patient did not receive any chemo or radiation. He also carries diagnosis of COPD. He also has pulmonary nodules and also evidence of interstitial lung disease. His last CT scan of the chest was done back in August 2021 at [facility]. It appears that the patient has evidence of interstitial lung disease with underlying pulmonary fibrosis. Ther e is also evidence of bronchiectasis with extensive mucus plugging. He has pulmonary nodules. Some of the areas of pulmonary fibrosis appear to be coalescing and difficult to know if there is any recurrent malignancy. The radiologist recommended a close follow-up. The patient continues to have a worsening cough productive in nature. Yellowish to green sputum. We were able to perform a nebulized treatment with Xopenex and hypertonic saline and did send sputum for culture for both AFB and Gram staining culture. The patient has had a bronchoscopy in the past many years ago performed by a local thoracic surgeon and he tolerated that well. At this point he does not need a bronchoscopy but we have to work on his chest physical therapy. The patient does have a percussion valve already prescribed by his previous social insurance administrator. At this time will increase his chest physical therapy to try to remove mucus plugging in the patient will need a repeat CT scan. In addition to that the patient has been getting samples of Trelegy which appears to be very effective in beneficial for him. However, is also very expensive and he is currently in the donut hole. I will send him a generic Wixela with hope that this will be less of a financial burden. 02/03/2022 the patient is here for a pulmonary follow-up visit. Overall he started to feel better. Although the having episodes of chest tightness and wheezing. He did have a CT scan of the chest sometime in the summer 2019 to could be consistent demonstrating persistent pulmonary density in addition to mucus plugging and bronchiectatic changes. He did start hypertonic saline with CPT with Acapella valve. This seems to be helping some. He also finds the Mucinex is helpful. His cultures were positive for Haemophilus influenzae. The AFB cultures for the reason cannot be done. The patient at this point will start azithromycin 3 times a week for his chronic bronchitis and bronchiectasis. He is scheduled to undergo repeat CT scans from hopeful that that proved the findings. The patient is also having wheezing. If the patient is not better with the azithromycin that with go ahead and start him on a course of prednisone again. He moved need to stay on a small dose for longer period time to provide some sustained improvement. 04/05/2022 the patient is here for a pulmonary follow-up visit. He started to complaining of increasing chest tightness and wheezing in addition to feeling tired with fatigue and achy. He always feels better on prednisone. The last couple weeks he stop using the prednisone in his symptoms restarted. Otherwise had been feeling well. Continues the azithromycin with good effect. We are still waiting for the sputum AFB to come back. We already treating for the Haemophilus influenzae. Continues use the nebulized treatments and also continues use Mucinex with good effect. At this time in be reasonable to put him back on small dose of prednisone. He may have a component of adrenal insufficiency from his chronic prednisone use. Will go ahead and check his random cortisol level before starting him on prednisone. the patient did have a repeat CT scan of the chest demonstrating interval improvement of his nodular densities which is reassuring. He will need a follow-up CT scan in the next 6- 12 months. 06/03/2022 the patient is here for a sick visit. He has had worsening chest tightness and wheezing the last several days. He did have some prednisone at home and he did increase his prednisone from 10 mg to 40 mg. Initially was helping but then went down to the 20 mg dose and he started again having difficulty with breathing significant shortness of breath. Moderate severity. Also had a cough and noticed that would have increased congestion when using the nebulizer. He will use the nebulizer just once a day. He he was also noted to have elevated blood pressure. He did see his primary care doctor. He has blood pressure medication was increased. In the meantime still having hard time breathing. In the office he does have significant wheezing. Therefore I did given 2 treatments of Xopenex. I do believe the that he will probably do better with DuoNeb as long as he does not develop any adverse effects. Therefore I did provide him with some samples of DuoNeb for him to try. I do want to use the nebulizer 3 times a day for now. The patient does have significant chest tightness. After the Xopenex he did a little better. 06/30/2022 the patient is here for a pulmonary follow-up visit. Overall the patient is starting to feel better. He is weaning down on the prednisone. He continues on the azithromycin 3 times a week. Overall his chest congestion has improved dramatically. He is very happy about that. Although he still complains of chest tightness and wheezing. He has been having to take care of his who is very ill and does have been a lot of additional stress and physical activity that he has had to do. He has gotten very winded with activity. During the office visit we did go for brief walking oximetry in the patient did desaturate down to around 91% with activity. It is likely that if he was going up a flight of stairs or outside going up a slant he likely will be desaturate further. He was symptomatic with increasing shortness of breath when his oxygen dropped to the low 90s. So happens that he was given a gift of a portable oxygen concentrator. And therefore he consider using that with activity specially when he is out of the house. For his respiratory medications he was some Wixela and then subsequently switched over to Trelegy. Trelegy seems to be better. Will go ahead and maximize the Trelegy from 100-200 at this time. Her 10/04/2022 the patient is here for pulmon adalid follow-up visit. Patient overall has been doing well although he still have is that chest congestion. Noticed more yellowish phlegm little hard to expectorate. Is using the Acapella valve and also the nebulized therapy. She continues use the oxygen. He has also been noticing increasing shortness of breath with minimal activity. We did go for brief walking oximetry and his pulse oximeter was able to stay around 94 95% throughout the ambulation although he was visibly dyspneic. His bagman/woman recommended doing a cardiac catheterization. He went to know my thoughts as far as cardiac catheterization versus CT of the coronary arteries. I did state that the cardiac catheterizations getting get more information including pressures. I do believe that if he is going to have a cardiac catheterization he should have a right and left cardiac catheterization looking for potentially right sided limitations and cor pulmonale a loss well as pulmonary hypertension. The patient also will undergo blood work including an ABG or venous gas to assess his CO2. He does have hypercapnia and then starting him on a noninvasive ventilator will be helpful. Will also check his hemoglobin to make sure that he is not anemic that potentially can also account for his dyspnea on exertion. 01/31/2023 the patient is here for a pul monary follow-up visit. The patient overall has been about the same. Still complaining of shortness of breath in addition to productive cough. He had a complete cardiac workup which was reassuring without any blockages. The patient now will go ahead and request pulmonary function studies in order to get him to pulmonary rehabilitation to increase his respiratory capacity. The patient also had sputum culture done still growing the Acinetobacter bacteria and also Aspergillus. Will go ahead and treat again the Acinetobacter with doxycycline. We will also send another sputum right now says he brought the specimen. As far as the Aspergillus will hold off on treatment right now this is likely a colonizer. She continues with respiratory therapy is been helpful. He continues to lose weight and he is concerned that he has does not clearly now why he is losing weight. He con tinues on the oxygen supplementation with good effect. 06/01/2023 the patient is here for a pulmo cuong follow-up visit. He is having hard time after having COVID. Had called in and we had sent him a prescription for Paxlovid but the patient was reluctant at that time. Afterwards he started developing worsening cough chest congestion shortness of breath. He has also had some weight loss. He has not been feeling well. The patient also started noticing some blood in the urine. He talked to his primary care doctor who gave him amoxicillin and he did have improvement. However, was only for 5 days and then the symptoms reoccurred. He did come in for a INR checking his INR levels have been steady but because of the hematuria the nursing staff became concerned. He will call them tomorrow. In the meantime he is feels more chest congestion. He has been using doxycycline but has not been helpful. Feels like she needs to go back on amoxicillin. He tolerated that well. [facility] his on going symptoms will go ahead and start him on Augmentin. He also also having some wheezing on exam is also him some prednisone. The patient should also have blood work, urine studies and also a chest x-ray before going home. [facility] Medical History (Updated 01/31/23 @ 22:02 by Tony Jhaveri MD) Bronchiectasis Pulmonary fibrosis Pulmonary nodules Bronchiectasis History of MRSA infection Arthritis Back pain Hx of spinal stenosis Lab test negative for COVID-19 virus Arrhythmia Hx of Clostridium difficile infection Hx of cancer of lung On anticoagulant therapy Elevated cholesterol Hx of ulcerative colitis CVA (cerebral vascular accident) COPD (chronic obstructive pulmonary disease) AAA (abdominal aortic aneurysm) Vitamin D deficiency Hypogonadotropic hypogonadism Osteoporosis Surgical History H/O colonoscopy History of bowel resection History of bronchoscopy History of lobectomy of lung Hx of cervical discectomy Family History Father AAA (abdominal aortic aneurysm) Mother No problems noted. Social History Are you a primary home care scheduler to a significant other at home: No Do you presently have visiting nurse or other home services: No Patient Tobacco Use Status: Former Tobacco user Tobacco use type: Cigarette Years Smoked: 54 Years Substance Use Type: Marijuana Review of Systems Const Reports fatigue, Denies fever(s) and Reports weight loss Eyes Denies eye discharge ENT Denies change in voice Card Denies chest pain and Reports dyspnea on exertion Resp Reports chest congestion, Reports cough, Denies hemoptysis, Reports dyspnea on exertion and Reports wheezing GI Reports no additional complaints Reports as per HPI and Reports hematuria Musc Reports no additional complaints Skin/Breast Denies rash Neuro Reports no additional complaints Endo Reports no additional complaints and Reports fatigue Ortiz/Lymph Denies easy bleeding, Denies easy bruising and Denies lymphadenopathy Aller/Immun Reports wheezing Physical Exam Vital Signs: Last Vital Signs Pulse 112 H 06/01/23 14:32 BP 140/80 H 06/01/23 14:32 Pulse Ox 96 06/01/23 14:32 BMI result Body Mass Index 17.8 Const General: comfortable HEENT Head: Yes normal to inspection Eyes General: appearance normal, both eyes and all related structures Neck Neck: Yes supple Chest Chest palpation & inspection: normal inspection of the chest Resp Auscultation: no crackles, no rales, no rhonchi, wheezes and diminished lung sounds Cardio Rate: regular rate Rhythm: regular rhythm Heart sounds: S1 normal heart sound present and S2 normal heart sound present Extrem General: Yes no clubbing, cyanosis or edema Results AMB INR Fingerstick AMB INR Fingerstick 2.3 Last Edit by Mira Hurt RN on 06/01/23 13:42 interface delay Assessment & Plan Assessment & Plan (1) COPD (chronic obstructive pulmonary disease): Code(s): J44.9 - Chronic obstructive pulmonary disease, unspecified Qualifiers: COPD type: COPD with acute exacerbation Qualified Code(s): J44.1 - Chronic obstructive pulmonary disease with (acute) exacerbation (2) Bronchiectasis: Code(s): J47.9 - Bronchiectasis, uncomplicated Qualifiers: Bronchiectasis type: uncomplicated Qualified Code(s): J47.9 - Bronchiectasis, uncomplicated (3) Dyspnea: Code(s): R06.00 - Dyspnea, unspecified Qualifiers: Dyspnea type: dyspnea on exertion Qualified Code(s): R06.09 - Other forms of dyspnea (4) Pulmonary fibrosis: Code(s): J84.10 - Pulmonary fibrosis, unspecified (5) Pulmonary nodules: Code(s): R91.8 - Other nonspecific abnormal finding of lung field (6) Hx of cancer of lung: Comment: with right upper [id number] not need chemotherapy or radiation Code(s): Z85.118 - Personal history of other malignant neoplasm of bronchus and lung Plan start Augmentin, monitor INR start Prednisone Needs to F/U with PCP re: hematuria Bloodwork CXR continue trelegy 200 nebulized therapy with albuterol followed by hypertonic saline followed by Aerobika valve twice a day hypertonic saline 3% to be started for his chest physical therapy Pulmonary rehab Mucinex as needed follow-up in 2-3 months Orders: Orders Complete Blood Count Auto Diff 06/01/23 R06.00 - Dyspnea, unspecified Basic Metabolic Panel 06/01/23 R06.00 - Dyspnea, unspecified Liver Panel 06/01/23 R06.00 - Dyspnea, unspecified Erythrocyte Sedimentation Rate 06/01/23 R06.00 - Dyspnea, unspecified XR chest 2V 06/01/23 R07.9 - Chest pain, unspecified Medications: New amoxicillin-pot clavulanate 875-125 mg 1 tab PO BID 10 days 20 tabs 0RF prednisone PO daily; Take 2 tabs daily x 5 days, then 1 tablet daily x 5 days 10 days 15 tabs 0RF Coding Level of Care Code Est Pt Level 4 (25377) Diagnoses Chronic obstructive pulmonary disease with acute exacerbation J44.1 COPD type: COPD with acute exacerbation Bronchiectasis without complication J47.9 Bronchiectasis type: uncomplicated Dyspnea on exertion R06.09 Dyspnea type: dyspnea on exertion Pulmonary fibrosis J84.10 Pulmonary nodules R91.8 Hx of cancer of lung Z85.118 Time Spent (min) 18
[2023-06-01 14:32] VITALS: BP 140/80; PULSE 112; O2SAT 96; BMI 17.8
== END 2023-06-01 14:48 | disposition home or self-care (01) ==
PROVIDERS: PCP Hospitalist; Visit Provider Hospitalist
DX: J44.1 Chronic obstructive pulmonary disease with (acute) exacerbation (principal); J84.10 Pulmonary fibrosis, unspecified; R91.8 Other nonspecific abnormal finding of lung field; Z85.118 Personal history of other malignant neoplasm of bronchus and lung
CPT/HCPCS: 99214

== ENCOUNTER 2023-06-08 13:04 | Outpatient (AMB) | payer MEDICARE, SELFPAY ==
--- NOTE | 2023-06-08 13:16 | MHC.OFFVISCO ---
Intake Intake Visit Reasons: Anticoagulation Allergies bupropion [From Wellbutrin] Allergy (Intermediate, Verified 06/08/23 13:05) Nausea levofloxacin [From LEVAQUIN] Allergy (Intermediate, Verified 06/08/23 13:05) GI UPSET/ WEIGHT LOSS, anaphylaxis ibuprofen Allergy (Mild, Verified 06/08/23 13:05) GI DISTRESS Medication List - Last Reconciled 06/08/23 by Mira Hurt, BLUE acetaminophen 500 mg PO Q6H PRN albuterol sulfate 90 mcg/actuation 1 inh PO Q4H PRN albuterol sulfate 90 mcg/actuation 2 puffs PO Q6H PRN albuterol sulfate 2.5 mg (3 mL) continuous nebulization QID PRN amoxicillin-pot clavulanate 875-125 mg 1 tab PO BID 10 days aspirin 81 mg PO DAILY atorvastatin 20 mg PO DAILY azithromycin 250 mg PO 3XW 28 days calcium citrate 500 mg (2 x 250 mg calcium) PO BID 90 days carvedilol 3.125 mg PO BID cholecalciferol (vitamin D3) 100 mcg (2 x 50 mcg (2,000 unit)) PO DAILY 90 days diltiazem HCl 120 mg PO BID doxycycline monohydrate 100 mg PO BID 30 days [ENSURE / BOOST PO DAILY] fluticasone propion-salmeterol 250-50 mcg/dose (Wixela Inhub) 1 inh inhalation Q12H 30 days ikqsyyyuoix-lnhwwxuda-cypddyjo 200-62.5-25 mcg (Trelegy Ellipta) 1 inh inhalation DAILY 30 days nebulizers As directed oxycodone 10 mg PO Q6H oxycodone ER (OxyContin) 10 mg PO BID Oxygen Home Use As directed prednisone PO daily; Take 2 tabs daily x 5 days, then 1 tablet daily x 5 days 10 days [probiotics PO] sertraline 25 mg PO DAILY sodium chloride 7% 4 mL inhalation BID theophylline ER 400 mg PO DAILY warfarin 2.5 mg See Protocol PO DAILY Nursing Note INR: 2.4 in therapeutic range Medications and supplements reviewed CONTINUES ON AUGMENTIN AND PREDNISONE STILL WITH RUST COLORED URINE, NO GROSS HEMATURIA BUT U/A SHOWED BLOOD IN URINE, MD AWARE HAS INCREASED FLUID INTACT MILD CONSTIPATION, PLANS TO TAKE STOOL SOFTENER Bleeding, bruising, clotting discussed, PT WILL GO TO ER IF MORE BLOOD IN URINE Nutritional guidance given, WILL DRINK BOOST TODAY Dose: PLAN TO HAVE INR WITHIN LOWER THERAPEUTIC RANGE UNTIL BLEEDING RESOLVED F/U INR: 1 WEEK Patient verbalizes understanding of instructions given Anti-Coag Initial Assessment Social Hx Patient Tobacco Use Status: Former Tobacco user Tobacco use type: Cigarette Alcohol intake frequency: does not drink Coding Level of Care Code Est Patient Level 1 Diagnoses Current use of anticoagulant therapy Z79.01 Results AMB INR Fingerstick AMB INR Fingerstick 2.4 Last Edit by Mira Hurt RN on 06/08/23 13:18 INTERFACE DELAY Assessment & Plan Assessment & Plan (1) Current use of anticoagulant therapy: Code(s): Z79.01 - longterm (current) use of 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
[2023-06-08 13:45] LABS: Prothrombin Time Whole Bld POC 29.1 sec (11.1-13.5); ~PT, ~INR - Anti Coag Clinic 2.4 (0.9-1.1)
== END 2023-06-08 13:34 | disposition home or self-care (01) ==
LOC: HO.ACS 13:04
PROVIDERS: PCP Hospitalist; Visit Provider Internal Medicine
DX: Z79.01 Long term (current) use of anticoagulants (principal)

== ENCOUNTER 2023-06-08 13:04 | Outpatient (REF) | payer MEDICARE, SELFPAY ==
--- NOTE | ~2023-06-08 | XR_ITS ---
EXAMINATION: XR CHEST 2 VIEWS CLINICAL INFORMATION: Chest pain. COMPARISON: CT chest dated 11/24/2021; chest radiographs dated 06/23/2021. TECHNIQUE: Frontal and lateral views of the chest were obtained. FINDINGS: The heart, great vessels, pulmonary vasculature and mediastinum are normal. There is hyperinflation, with diaphragmatic flattening. There is chronic right base scar/subsegmental atelectasis. The lungs show no focal infiltrate, effusion or pneumothorax. There is no acute osseous abnormality. There is multi-level thoracolumbar spondylosis. Lower cervical orthopedic hardware is noted. XR/XR chest 2V IMPRESSION: 1. No active cardiopulmonary disease. 2. Findings are consistent with COPD. 3. There is chronic scar/subsegmental atelectasis at the right base.
== END 2023-06-08 13:05 | disposition home or self-care (01) ==
LOC: HO.XRAY 13:04
PROVIDERS: PCP Hospitalist; Visit Provider Hospitalist
DX: R07.9 Chest pain, unspecified (principal); Z86.73 Personal history of transient ischemic attack (TIA), and cerebral infarction without residual deficits; Z51.81 Encounter for therapeutic drug level monitoring; Z79.01 Long term (current) use of anticoagulants
CPT/HCPCS: 71046; 85610; 99211

== ENCOUNTER 2023-06-20 13:14 | Outpatient (AMB) | payer MEDICARE, SELFPAY ==
--- NOTE | 2023-06-20 13:29 | MHC.OFFVISCO ---
Intake Intake Visit Reasons: Anticoagulation Allergies bupropion [From Wellbutrin] Allergy (Intermediate, Verified 06/20/23 13:23) Nausea levofloxacin [From LEVAQUIN] Allergy (Intermediate, Verified 06/20/23 13:23) GI UPSET/ WEIGHT LOSS, anaphylaxis ibuprofen Allergy (Mild, Verified 06/20/23 13:23) GI DISTRESS Medication List - Last Reconciled 06/20/23 by Millie Rodriguez RN acetaminophen 500 mg PO Q6H PRN albuterol sulfate 90 mcg/actuation 1 inh PO Q4H PRN albuterol sulfate 90 mcg/actuation 2 puffs PO Q6H PRN albuterol sulfate 2.5 mg (3 mL) continuous nebulization QID PRN aspirin 81 mg PO DAILY atorvastatin 20 mg PO DAILY azithromycin 250 mg PO 3XW 28 days calcium citrate 500 mg (2 x 250 mg calcium) PO BID 90 days carvedilol 3.125 mg PO BID cholecalciferol (vitamin D3) 100 mcg (2 x 50 mcg (2,000 unit)) PO DAILY 90 days diltiazem HCl 120 mg PO BID [ENSURE / BOOST PO DAILY] fluticasone propion-salmeterol 250-50 mcg/dose (Wixela Inhub) 1 inh inhalation Q12H 30 days wikeyjergqg-wwiwozjqn-dgvxqsua 200-62.5-25 mcg (Trelegy Ellipta) 1 inh inhalation DAILY 30 days nebulizers As directed oxycodone 10 mg PO Q6H oxycodone ER (OxyContin) 10 mg PO BID Oxygen Home Use As directed prednisone PO daily; Take 2 tabs daily x 5 days, then 1 tablet daily x 5 days 10 days [probiotics PO] sertraline 25 mg PO DAILY sodium chloride 7% 4 mL inhalation BID theophylline ER 400 mg PO DAILY warfarin 2.5 mg See Protocol PO DAILY Nursing Note INR: 2.4- in therapeutic range of 2-3 Medications and supplements reviewed- no changes No changes in health, diet, medications, or supplements, Denies any signs and symptoms of bleeding or bruising or clotting. Bleeding, bruising, clotting discussed - denies hematuria Nutritional guidance given Dose: 3.75mg x 3, 2.5mg x 4 F/U INR: pt ref earlier appt than 3 weeks Patient verbalizes understanding of instructions given Anti-Coag Initial Assessment Social Hx Patient Tobacco Use Status: Former Tobacco user Tobacco use type: Cigarette Alcohol intake frequency: does not drink Coding Level of Care Code Est Patient Level 1 Diagnoses Current use of anticoagulant therapy Z79.01 Assessment & Plan Assessment & Plan (1) Current use of anticoagulant therapy: Code(s): Z79.01 - long term (current) use of 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 Medications: Discontinued doxycycline monohydrate Discontinued Reason: Patient no longer taking 100 mg PO BID 30 days 60 tabs 3RF amoxicillin-pot clavulanate 875-125 mg Discontinued Reason: Patient Completed Course 1 tab PO BID 10 days 20 tabs 0RF
[2023-06-20 13:30] LABS: Prothrombin Time Whole Bld POC 28.9 sec (11.1-13.5); ~PT, ~INR - Anti Coag Clinic 2.4 (0.9-1.1)
== END 2023-06-20 13:37 | disposition home or self-care (01) ==
LOC: HO.ACS 13:14
PROVIDERS: PCP Hospitalist; Visit Provider Internal Medicine
DX: Z79.01 Long term (current) use of anticoagulants (principal)

== ENCOUNTER → 2023-06-20 13:14 | Outpatient (BNVA) | payer MEDICARE, SELFPAY | PROVIDERS: PCP Hospitalist; Visit Provider Internal Medicine | DX: Z86.73 Personal history of transient ischemic attack (TIA), and cerebral infarction without residual deficits (principal); Z79.01 Long term (current) use of anticoagulants; Z51.81 Encounter for therapeutic drug level monitoring | CPT/HCPCS: 85610; 99211 ==

== ENCOUNTER 2023-06-21 09:23 | Outpatient (AMB) | payer MEDICARE, SELFPAY ==
[2023-06-21 09:29] VITALS: BP 126/68; PULSE 89; O2SAT 96; BMI 17.3
--- NOTE | 2023-06-21 09:29 | MHC.OFFVIS ---
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: No Mineral Surveying Technician: Mineral Surveying Technician offered & declined Allergies bupropion [From Wellbutrin] Allergy (Intermediate, Verified 06/21/23 09:35) Nausea levofloxacin [From LEVAQUIN] Allergy (Intermediate, Verified 06/21/23 09:35) GI UPSET/ WEIGHT LOSS, anaphylaxis ibuprofen Allergy (Mild, Verified 06/21/23 09:35) GI DISTRESS Medication List - Last Reconciled 06/21/23 by Leila Sinclair LPN acetaminophen 500 mg PO Q6H PRN albuterol sulfate 90 mcg/actuation 1 inh PO Q4H PRN albuterol sulfate 90 mcg/actuation 2 puffs PO Q6H PRN albuterol sulfate 2.5 mg (3 mL) continuous nebulization QID PRN aspirin 81 mg PO DAILY atorvastatin 20 mg PO DAILY azithromycin 250 mg PO 3XW 28 days calcium citrate 500 mg (2 x 250 mg calcium) PO BID 90 days carvedilol 3.125 mg PO BID cholecalciferol (vitamin D3) 100 mcg (2 x 50 mcg (2,000 unit)) PO DAILY 90 days diltiazem HCl 120 mg PO BID [ENSURE / BOOST PO DAILY] ttttzqowxsi-heghoypje-nlnxopuh 200-62.5-25 mcg (Trelegy Ellipta) 1 inh inhalation DAILY 30 days nebulizers As directed oxycodone 10 mg PO Q6H oxycodone ER (OxyContin) 10 mg PO BID Oxygen Home Use As directed [probiotics PO] sertraline 25 mg PO DAILY sodium chloride 7% 4 mL inhalation BID theophylline ER 400 mg PO DAILY warfarin 2.5 mg See Protocol PO DAILY HPI Ongoing prod cough, sob,rib pain HPI Details Dirk is a pleasant 73 year old male, former smoker, with underlying COPD, bronchiectasis on suppressive azithromycin, h/o lung cancer s/p RUL 2018. At baseline, he is moderately controlled on Trelegy, flutter valve and albuterol neb BID. Today he presents for an acute visit. He reports ongoing symptoms of productive cough with yellow sputum, dyspnea and wheezing over the past 4-5 weeks. He was treated with amoxicillin from his PCP with notable improvement of symptoms however it was only a 5 day rx and symptoms returned. He was then seen by Dr. Jhaveri who prescribed doxycycline with suboptimal effect followed by Augmentin. He reported moderate improvement with Augmentin, but when discontinued began to develop increased productive cough with yellow sputum, increased sputum production, labored breathing and persistent wheezing. He was sent for chest x-ray on 06/08 which was negative for acute findings. [facility] Medical History (Updated 01/31/23 @ 22:02 by Tony Jhaveri MD) Bronchiectasis Pulmonary fibrosis Pulmonary nodules Bronchiectasis History of MRSA infection Arthritis Back pain Hx of spinal stenosis Lab test negative for COVID-19 virus Arrhythmia Hx of Clostridium difficile infection Hx of cancer of lung On anticoagulant therapy Elevated cholesterol Hx of ulcerative colitis CVA (cerebral vascular accident) COPD (chronic obstructive pulmonary disease) AAA (abdominal aortic aneurysm) Vitamin D deficiency Hypogonadotropic hypogonadism Osteoporosis Surgical History H/O colonoscopy History of bowel resection History of bronchoscopy History of lobectomy of lung Hx of cervical discectomy Family History Father AAA (abdominal aortic aneurysm) Mother No problems noted. Social History (Updated 06/21/23 @ 09:40 by Leila Sinclair LPN) Are you a primary sub acute care nurse to a significant other at home: No Do you presently have visiting nurse or other home services: No Patient Tobacco Use Status: Former Tobacco user Tobacco use type: Cigarette Years Smoked: 54 Years Smoked in Last 30 Days: No Substance Use Type: Marijuana Review of Systems Const Denies chills, Denies excessive sweating, Denies fever(s), Denies headache(s) and Denies night sweats Eyes Denies dry eyes and Denies itchy eyes ENT Reports Normal hearing present, Denies headache(s), Denies nasal congestion, Denies nasal discharge, Denies post nasal drip and Denies sore throat Card Denies chest pain, Denies chest pain at rest, Denies chest pain with activity, Denies claudication, Denies leg edema, Denies orthopnea and Denies paroxysmal nocturnal dyspnea Resp Denies pain on inspiration, Denies pain with cough and Denies stridor Musc Denies myalgias Neuro Reports Normal hearing present and Denies headache(s) Endo Denies excessive sweating Ortiz/Lymph Denies lymphadenopathy Aller/Immun Denies itchy eyes and Denies seasonal rhinorrhea Physical Exam Vital Signs: Last Vital Signs Pulse 89 06/21/23 09:29 BP 126/68 06/21/23 09:29 Pulse Ox 96 06/21/23 09:29 Oxygen Delivery Method Room Air 06/21/23 09:29 BMI result Body Mass Index 17.3 Const General: cooperative, healthy appearing, comfortable, no acute distress and alert Orientation/consciousness: patient oriented x3 Limitations: no limitations HEENT Head: Yes normal to inspection, Yes normocephalic and Yes atraumatic Ears: hearing grossly normal bilaterally and external ears normal Eyes General: appearance normal, both eyes and all related structures Eyelids: Yes eyelids normal Sclerae: sclerae normal EOM: EOMs intact bilaterally Neck Neck: Yes normal visual inspection and Yes no lymphadenopathy Lymphatic: no lymphadenopathy noted Chest Chest palpation & inspection: normal inspection of the chest Resp Other: moderately diminished lung sounds with expiratory wheezing throughout, improved with duoneb. Effort & Inspection: normal respiratory effort, able to speak in complete sentences, no audible wheezes, no stridor, not tachypneic, no tripod positioning and no use of accessory muscles Cardio Jugular venous distension: no JVD Rate: regular rate Rhythm: regular rhythm Skin Other: warm, dry General skin exam: no rashes or lesions noted Neuro General: patient oriented x3 Cranial nerves: Yes Normal hearing present Cognition (Neuro): normal cognition Gait exam (Neuro): Normal gait present Extrem General: Yes normal to inspection, Yes capillary refill normal, Yes no clubbing, cyanosis or edema and Yes no pedal edema Psych Appearance: grossly normal and well kempt Speech and movement: Normal speech and movement present and Clear speech present Affect: normal affect Attitude: cooperative Thought process: Normal thought process present Thought content: Normal thought content present Insight: Good insight present (Psych) Judgement: Good judgement present (Psych) Office Procedures Nebulizer Treatment Nebulizer Treatment [id number] RX initial, or Nebulizer Subsequent Treatment Office Meds ipratropium 0.5 mg-albuterol 3 mg (2.5 mg base)/3 mL nebulization soln Performing Provider: Shahana Enrique NP Performing Location: [facility] Administered by: Leila Sinclair LPN on 06/21/23 10:10 Dose Route Admin Location Dispensed Lot Number Expiration Date NDC Still [employer] 3 mL inhalation 3 mL [id number] 01/21/25 60534-161-06 [employer] Assessment & Plan Assessment & Plan (1) Bronchiectasis: Code(s): J47.9 - Bronchiectasis, uncomplicated Qualifiers: Bronchiectasis type: uncomplicated Qualified Code(s): J47.9 - Bronchiectasis, uncomplicated (2) Pulmonary fibrosis: Code(s): J84.10 - Pulmonary fibrosis, unspecified (3) Hx of cancer of lung: Comment: with right upper [id number] not need chemotherapy or radiation Code(s): Z85.118 - Personal history of other malignant neoplasm of bronchus and lung (4) COPD (chronic obstructive pulmonary disease): Code(s): J44.9 - Chronic obstructive pulmonary disease, unspecified Qualifiers: COPD type: COPD with acute exacerbation Qualified Code(s): J44.1 - Chronic obstructive pulmonary disease with (acute) exacerbation Plan Given patient with persistent symptoms despite multiple antibiotics including amoxicillin, doxycycline, and Augmentin, as well as being on suppressive therapy with azithromycin, will hold off on any antibiotic treatment until sputum culture results. Patient aware if unable to produce a sputum, will discuss bronchoscopy. On exam patient with moderate wheezing, improved with DuoNeb. Will send in prednisone. All questions are answered patient is in agreement of plan. Will have close follow-up with Dr. Jhaveri which is scheduled for 06/28. Orders: Orders AMB Nebulizer Treatment Today J44.9 - Chronic obstructive pulmonary disease, unspecified Sputum Cult + Gram stain Today J47.9 - Bronchiectasis, uncomplicated Medications: New prednisone 40 mg (2 x 20 mg) PO DAILY 10 tabs 0RF Coding Level of Care Code Est Pt Level 4 (67612) Diagnoses Bronchiectasis without complication J47.9 Bronchiectasis type: uncomplicated Pulmonary fibrosis J84.10 Hx of cancer of lung Z85.118 Chronic obstructive pulmonary disease with acute exacerbation J44.1 COPD type: COPD with acute exacerbation CPT Codes Nebulizer Treatment - Nebulizer Treatment, initial or subsequent: [id number] RX initial, or Nebulizer Subsequent Treatment ([id number])
== END 2023-06-21 10:36 | disposition home or self-care (01) ==
PROVIDERS: PCP Hospitalist; Visit Provider Nurse Practitioner Family
DX: J47.9 Bronchiectasis, uncomplicated (principal); J84.10 Pulmonary fibrosis, unspecified; Z85.118 Personal history of other malignant neoplasm of bronchus and lung; J44.1 Chronic obstructive pulmonary disease with (acute) exacerbation; J44.9 Chronic obstructive pulmonary disease, unspecified
CPT/HCPCS: 99214

== ENCOUNTER → 2023-06-21 09:23 | Outpatient (BNVA) | payer MEDICARE, SELFPAY | PROVIDERS: PCP Hospitalist; Visit Provider Nurse Practitioner Family | DX: J47.9 Bronchiectasis, uncomplicated (principal); J44.1 Chronic obstructive pulmonary disease with (acute) exacerbation; J84.10 Pulmonary fibrosis, unspecified; Z85.118 Personal history of other malignant neoplasm of bronchus and lung | CPT/HCPCS: 94640; 99212 ==

== ENCOUNTER 2023-06-22 13:00 | Outpatient (REF) | payer MEDICARE, SELFPAY | END 2023-06-22 13:01 | disposition home or self-care (01) | LOC: HO.LNP 13:00 | PROVIDERS: Visit Provider Nurse Practitioner Family | DX: Z13.89 Encounter for screening for other disorder (principal) ==

== ENCOUNTER 2023-06-23 13:00 | Outpatient (REF) | payer MEDICARE, SELFPAY | END 2023-06-23 13:01 | disposition home or self-care (01) | LOC: HO.LNP 13:00 | PROVIDERS: Visit Provider Nurse Practitioner Family | DX: J47.9 Bronchiectasis, uncomplicated (principal) | CPT/HCPCS: 87070; 87077; 87186; 87205 ==

== ENCOUNTER 2023-06-29 11:16 | Outpatient (AMB) | payer MEDICARE, SELFPAY ==
--- NOTE | 2023-06-29 11:18 | A.OFFVIS_ITS ---
Intake Vital Signs 06/29/23 11:21 Height 5 ft 6 in Weight 100 lb BMI 16.1 BP 120/70 Blood Pressure Location Lt brachial Position Sitting Pulse 89 Pulse Source Pulse Oximeter Pulse Oximetry (%) 96 Oxygen Delivery Method Room Air Intake Visit Reasons: Obstructive sleep apnea Business Reporting Developer Required: No Allergies bupropion [From Wellbutrin] Allergy (Intermediate, Verified 06/29/23 11:23) Nausea levofloxacin [From LEVAQUIN] Allergy (Intermediate, Verified 06/29/23 11:23) GI UPSET/ WEIGHT LOSS, anaphylaxis ibuprofen Allergy (Mild, Verified 06/29/23 11:23) GI DISTRESS HPI HPI Comments History of Present Illness Details The patient is a 73-year-old gentleman with a significant pulmonary history. the patient does have a history of lung cancer diagnosed back in 2019 status post right upper lobectomy. Patient did not receive any chemo or radiation. He also carries diagnosis of COPD. He also has pulmonary nodules and also evidence of interstitial lung disease. His last CT scan of the chest was done back in August 2021 at [facility]. It appears that the patient has evidence of interstitial lung disease with underlying pulmonary fibrosis. There is also evidence of bronchiectasis with extensive mucus plugging. He has pulmonary nodules. Some of the areas of pulmonary fibrosis appear to be coalescing and difficult to know if there is any recurrent malignancy. The radiologist recommended a close follow-up. The patient continues to have a worsening cough productive in nature. Yellowish to green sputum. We were able to perform a nebulized treatment with Xopenex and hypertonic saline and did send sputum for culture for both AFB and Gram staining culture. The patient has had a bronchoscopy in the past many years ago performed by a local thoracic surgeon and he tolerated that well. At this point he does not need a bronchoscopy but we have to work on his chest physical therapy. The patient does have a percussion valve already prescribed by his previous marine electrician. At this time will increase his chest physical therapy to try to remove mucus plugging in the patient will need a repeat CT scan. In addition to that the patient has been getting samples of Trelegy which appears to be very effective in beneficial for him. However, is also very expensive and he is currently in the donut hole. I will send him a generic Wixela with hope that this will be less of a financial burden. 02/03/2022 the patient is here for a pulmonary follow-up visit. Overall he started to feel better. Although the having episodes of chest tightness and wheezing. He did have a CT scan of the chest sometime in the summer 2019 to could be consistent demonstrating persistent pulmonary density in addition to mucus plugging and bronchiectatic changes. He did start hypertonic saline with CPT with Acapella valve. This seems to be helping some. He also finds the Mucinex is helpful. His cultures were positive for Haemophilus influenzae. The AFB cultures for the reason cannot be done. The patient at this point will start azithromycin 3 times a week for his chronic bronchitis and bronchiectasis. He is scheduled to undergo repeat CT scans from hopeful that that proved the findings. The patient is also having wheezing. If the patient is not better with the azithromycin that with go ahead and start him on a course of prednisone again. He moved need to stay on a small dose for longer period time to provide some sustained improvement. 04/05/2022 the patient is here for a pulmonary follow-up visit. He started to complaining of increasing chest tightness and wheezing in addition to feeling tired with fatigue and achy. He always feels better on prednisone. The last couple weeks he stop using the prednisone in his symptoms restarted. Otherwise had been feeling well. Continues the azithromycin with good effect. We are still waiting for the sputum AFB to come back. We already treating for the Haemophilus influenzae. Continues use the nebulized treatments and also continues use Mucinex with good effect. At this time in be reasonable to put him back on small dose of prednisone. He may have a component of adrenal insufficiency from his chronic prednisone use. Will go ahead and check his random cortisol level before starting him on prednisone. the patient did have a repeat CT scan of the chest demonstrating interval improvement of his nodular d ensities which is reassuring. He will need a follow-up CT scan in the next 6-12 months. 06/03/2022 the patient is here for a sick visit. He has had worsening chest tightness and wheezing the last several days. He did have some prednisone at home and he did increase his prednisone from 10 mg to 40 mg. Initially was helping but then went down to the 20 mg dose and he started again having diffic ulty with breathing significant shortness of breath. Moderate severity. Also had a cough and noticed that would have increased congestion when using the nebulizer. He will use the nebulizer just once a day. He he was also noted to have elevated blood pressure. He did see his primary care doctor. He has blood pressure medication was increased. In the meantime still having hard time breathing. In the office he does have significant wheezing. Therefore I did given 2 treatments of Xopenex. I do believe the that he will probably do better with DuoNeb as long as he does not develop any adverse effects. Therefore I did provide him with some samples of DuoNeb for him to try. I do want to use the nebulizer 3 times a day for now. The patient does have significant chest tightness. After the Xopenex he did a little better. 06/30/2022 the patient is here for a pulmonary follow-up visit. Overall the patient is starting to feel better. He is weaning down on the prednisone. He continues on the azithromycin 3 times a week. Overall his chest congestion has improved dramatically. He is very happy about that. Although he still complains of chest tightness and wheezing. He has been having to take care of his who is very ill and does have been a lot of additional stress and physical activity that he has had to do. He has gotten very winded with activity. During the office visit we did go for brief walking oximetry in the patient did desaturate down to around 91% with activity. It is likely that if he was going up a flight of stairs or outside going up a slant he likely will be desaturate further. He was symptomatic with increasing shortness of breath when his oxygen dropped to the low 90s. So happens that he was given a gift of a portable oxygen concentrator. And therefore he consider using that with activity specially when he is out of the house. For his respiratory medications he was some Wixela and then subsequently switched over to Trelegy. Trelegy seems to be better. Will go ahead and maximize the Trelegy from 100-200 at this time. Her 10/04/2022 the patient is here for pulmon adalid follow-up visit. Patient overall has been doing well although he still have is that chest congestion. Noticed more yellowish phlegm little hard to expectorate. Is using the Acapella valve and also the nebulized therapy. She continues use the oxygen. He has also been noticing increasing shortness of breath with minimal activity. We did go for brief walking oximetry and his pulse oximeter was able to stay around 94 95% throughout the ambulation although he was visibly dyspneic. His reinforcing iron worker helper recommended doing a cardiac catheterization. He went to know my thoughts as far as cardiac catheterization versus CT of the coronary arteries. I did state that the cardiac catheterizations getting get more information including pressures. I do believe that if he is going to have a cardiac catheterization he should have a right and left cardiac catheterization looking for potentially right sided limitations and cor pulmonale a loss well as pulmonary hypertension. The patient also will undergo blood work including an ABG or venous gas to assess hi s CO2. He does have hypercapnia and then starting him on a noninvasive ventilator will be helpful. Will also check his hemoglobin to make sure that he is not anemic that potentially can also account for his dyspnea on exertion. 01/31/2023 the patient is here for a pul monary follow-up visit. The patient overall has been about the same. Still complaining of shortness of breath in addition to productive cough. He had a complete cardiac workup which was reassuring without any blockages. The patient now will go ahead and request pulmonary function studies in order to get him to pulmonary rehabilitation to increase his respiratory capacity. The patient also had sputum culture done still growing the Acinetobacter bacteria and also Aspergillus. Will go ahead and treat again the Acinetobacter with doxycycline. We will also send another sputum right now says he brought the specimen. As far as the Aspergillus will hold off on treatment right now this is likely a colonizer. She continues with respiratory therapy is been helpful. He continues to lose weight and he is concerned that he has does not clearly now why he is losing weight. He continues on the oxygen supplementation with good effect. 06/01/2023 [facility]. He is having hard time after having COVID. Had called in and we had sent him a prescription for Paxlovid but the patient was reluctant at that time. Afterwards he started developing worsening cough chest congestion shortness of breath. He has also had some weight loss. He has not been feeling well. The patient also started noticing some blood in the urine. He talked to his primary care doctor who gave him amoxicillin and he did have improvement. However, was only for 5 days and then the symptoms reoccurred. He did come in for a INR checking his INR levels have been steady but because of the hematuria the nursing staff became concerned. He will call them tomorrow. In the meantime he is feels more chest congestion. He has been using doxycycline but has not been helpful. Feels like she needs to go back on amoxicillin. He tolerated that well. [facility] his ongoing symptoms will go ahead and start him on Augmentin. He also also having some wheezing on exam is also him some prednisone. The patient should also have blood work, urine studies and also a chest x-ray before going home. 06/29/2023 the patient is here for a pulmo nary follow-up visit. He continues to cough she is congestion. Expectorate. He has multiple bugs that have been growing throughout the years. Most recently he grew stenotrophomonas. He was placed on doxycycline did get nauseous. I did give him some advice on how to take it appropriately specially since his the only medication he can take 4. In the meantime he is chest congestion significant moderate severity. With the worsening cough. Therefore we talked about perform any clean out bronchoscopy which is reasonable at this time. Will plan for bronchoscopy and then will follow-up afterwards. He continues use all his respiratory therapy which is partially helpful. The morning [facility] Medical History (Updated 01/31/23 @ 22:02 by Tony Jhaveri MD) Bronchiectasis Pulmonary fibrosis Pulmonary nodules Bronchiectasis History of MRSA infection Arthritis Back pain Hx of spinal stenosis Lab test negative for COVID-19 virus Arrhythmia Hx of Clostridium difficile infection Hx of cancer of lung On anticoagulant therapy Elevated cholesterol Hx of ulcerative colitis CVA (cerebral vascular accident) COPD (chronic obstructive pulmonary disease) AAA (abdominal aortic aneurysm) Vitamin D deficiency Hypogonadotropic hypogonadism Osteoporosis Surgical History H/O colonoscopy History of bowel resection History of bronchoscopy History of lobectomy of lung Hx of cervical discectomy Family History Father AAA (abdominal aortic aneurysm) Mother No problems noted. Social History (Updated 06/21/23 @ 09:40 by Leila Sinclair LPN) Are you a primary director day care center to a significant other at home: No Do you presently have visiting nurse or other home services: No Patient Tobacco Use Status: Former Tobacco user Tobacco use type: Cigarette Years Smoked: 54 Years Substance Use Type: Marijuana Review of Systems Const Reports fatigue, Denies fever(s) and Reports weight loss Eyes Denies eye discharge ENT Denies change in voice Card Denies chest pain and Reports dyspnea on exertion Resp Reports chest congestion, Reports cough, Denies hemoptysis, Reports dyspnea on exertion and Reports wheezing GI Reports no additional complaints Reports as per HPI and Reports hematuria Musc Reports no additional complaints Skin/Breast Denies rash Neuro Reports no additional complaints Endo Reports no additional complaints and Reports fatigue Ortiz/Lymph Denies easy bleeding, Denies easy bruising and Denies lymphadenopathy Aller/Immun Reports wheezing Physical Exam Vital Signs: Last Vital Signs Pulse 89 06/29/23 11:21 BP 120/70 06/29/23 11:21 Pulse Ox 96 06/29/23 11:21 Oxygen Delivery Method Room Air 06/29/23 11:21 BMI result Body Mass Index 16.1 Const General: comfortable HEENT Head: Yes normal to inspection Eyes General: appearance normal, both eyes and all related structures Neck Neck: Yes supple Chest Chest palpation & inspection: normal inspection of the chest Resp Auscultation: no crackles, no rales, rhonchi and diminished lung sounds Cardio Rate: regular rate Rhythm: regular rhythm Heart sounds: S1 normal heart sound present and S2 normal heart sound present Extrem General: Yes no clubbing, cyanosis or edema Assessment & Plan Assessment & Plan (1) COPD (chronic obstructive pulmonary disease): Code(s): J44.9 - Chronic obstructive pulmonary disease, unspecified Qualifiers: COPD type: COPD with acute exacerbation Qualified Code(s): J44.1 - Chronic obstructive pulmonary disease with (acute) exacerbation (2) Bronchiectasis: Code(s): J47.9 - Bronchiectasis, uncomplicated Qualifiers: Bronchiectasis type: uncomplicated Qualified Code(s): J47.9 - Bronchiectasis, uncomplicated (3) Dyspnea: Code(s): R06.00 - Dyspnea, unspecified Qualifiers: Dyspnea type: dyspnea on exertion Qualified Code(s): R06.09 - Other forms of dyspnea (4) Pulmonary fibrosis: Code(s): J84.10 - Pulmonary fibrosis, unspecified (5) Pulmonary nodules: Code(s): R91.8 - Other nonspecific abnormal finding of lung field (6) Hx of cancer of lung: Comment: with right upper [id number] not need chemotherapy or radiation Code(s): Z85.118 - Personal history of other malignant neoplasm of bronchus and lung Plan Plan for a diagnostic/therapeutic bronchoscopy continue trelegy 200 nebulized therapy with albuterol followed by hypertonic saline followed by Aerobika valve twice a day hypertonic saline 3% to be started for his chest physical therapy Pulmonary rehab Mucinex as needed follow-up in after bronchoscopy Coding Level of Care Code Est Pt Level 4 (04643) Diagnoses Chronic obstructive pulmonary disease with acute exacerbation J44.1 COPD type: COPD with acute exacerbation Bronchiectasis without complication J47.9 Bronchiectasis type: uncomplicated Dyspnea on exertion R06.09 Dyspnea type: dyspnea on exertion Pulmonary fibrosis J84.10 Pulmonary nodules R91.8 Hx of cancer of lung Z85.118 Time Spent (min) 18
[2023-06-29 11:21] VITALS: BP 120/70; PULSE 89; O2SAT 96; BMI 16.1
== END 2023-06-29 11:48 | disposition home or self-care (01) ==
PROVIDERS: PCP Hospitalist; Visit Provider Hospitalist
DX: J44.1 Chronic obstructive pulmonary disease with (acute) exacerbation (principal); J47.9 Bronchiectasis, uncomplicated; R06.09 Other forms of dyspnea; J84.10 Pulmonary fibrosis, unspecified; R91.8 Other nonspecific abnormal finding of lung field; Z85.118 Personal history of other malignant neoplasm of bronchus and lung
CPT/HCPCS: 99214

== ENCOUNTER → 2023-06-29 11:19 | Outpatient (BNVA) | payer MEDICARE, SELFPAY | PROVIDERS: PCP Hospitalist; Visit Provider Hospitalist | DX: J44.1 Chronic obstructive pulmonary disease with (acute) exacerbation (principal); J47.9 Bronchiectasis, uncomplicated; J84.10 Pulmonary fibrosis, unspecified; R91.8 Other nonspecific abnormal finding of lung field; R06.09 Other forms of dyspnea; Z85.118 Personal history of other malignant neoplasm of bronchus and lung | CPT/HCPCS: 99212 ==

== ENCOUNTER 2023-07-11 12:58 | Outpatient (AMB) | payer MEDICARE, SELFPAY ==
[2023-07-11 13:16] LABS: Prothrombin Time Whole Bld POC 42.2 sec (11.1-13.5); ~PT, ~INR - Anti Coag Clinic 3.5 (0.9-1.1)
--- NOTE | 2023-07-11 14:10 | MHC.OFFVISCO ---
Intake Intake Visit Reasons: Anticoagulation Allergies bupropion [From Wellbutrin] Allergy (Intermediate, Verified 07/11/23 13:09) Nausea levofloxacin [From LEVAQUIN] Allergy (Intermediate, Verified 07/11/23 13:09) GI UPSET/ WEIGHT LOSS, anaphylaxis ibuprofen Allergy (Mild, Verified 07/11/23 13:09) GI DISTRESS Medication List - Last Reconciled 07/11/23 by Cherrie Parker RN acetaminophen 500 mg PO Q6H PRN albuterol sulfate 90 mcg/actuation 1 inh PO Q4H PRN albuterol sulfate 90 mcg/actuation 2 puffs PO Q6H PRN albuterol sulfate 2.5 mg (3 mL) continuous nebulization QID PRN aspirin 81 mg PO DAILY atorvastatin 20 mg PO DAILY azithromycin 250 mg PO 3XW 28 days calcium citrate 500 mg (2 x 250 mg calcium) PO BID 90 days carvedilol 3.125 mg PO BID cholecalciferol (vitamin D3) 100 mcg (2 x 50 mcg (2,000 unit)) PO DAILY 90 days diltiazem HCl 120 mg PO BID [ENSURE / BOOST PO DAILY] [id number]-rsnftiwck-[id number] 200-62.5-25 mcg (Trelegy Ellipta) 1 ea PO DAILY nebulizers As directed oxycodone 10 mg PO Q6H oxycodone ER (OxyContin) 10 mg PO BID Oxygen Home Use As directed prednisone 40 mg (2 x 20 mg) PO DAILY [probiotics PO] sertraline 25 mg PO DAILY sodium chloride 7% 4 mL inhalation BID theophylline ER 400 mg PO DAILY warfarin 2.5 mg See Protocol PO DAILY Nursing Note INR 3.5 out of therapeutic range Medications and supplements reviewed Patient status: Pt states he will be undergoing a bronchoscopy 07/20/23 and is to hold warfarin x 3 days. Today his INR is 3.5 above his therapeutic range 2.0-3.0 It is most likely elevated due to the delayed onset of the antbiotics he recently completed( did not tell us about until today). They can have a delayed onset 1-2 weeks after completing them. Plus he has had an increase in loose bowel movements since starting the antibiotic. His warfarin dose will be decreased this week due to the antbx and loose BMs . Usual dose: 3.75mg Tue Thur Sat/ 2.5mg x 4 days 07/11/23 Decrease todays from 3.75mg to 1.25mg, and dose from 3.75mg to 2.5mg 07/17/23 Recheck INR due to possible effects of antbx and loose stool 07/17/23- 07/19/23 hold warfarin x 3 days per MD 07/20/23 Procedure- resume warfarin same day or as directed per MD. Start with usual dose 3.75mg , 3.75mg Mon(only slight booster dose due to previous hematuria) 3.75 Sat then resume usual dose 2.5mg x 4 days/ 3.75mg Monur 07/25/23Monday follow up INR 5 days post procedure. Medications or supplements:completed antbx doxycycline Diet: states that he is eating and making sure he eats enough protein, he wonders if the ensure/ boost is effecting his bladder because that is when he notices that his urine seems to change after he drinks it, so he has decreased it to see if there is a difference and it seems to be so Denies any signs and symptoms of bleeding or clotting or unusual bruising Bleeding, bruising, clotting discussed Nutritional guidance given: as tolerated, try to limit acidic foods when he has hematuria and make sure he is drinking enough fluids and maybe try sipping chicken broth instead of ensure Dose: see above F/U INR Date : 07/17/23 to make sure delayed onset and loose stools not interferring with INR ?? Patient verbalizing understanding of instructions given. Anti-Coag Initial Assessment Social Hx Patient Tobacco Use Status: Former Tobacco user Tobacco use type: Cigarette Alcohol intake frequency: does not drink Coding Level of Care Code Est Patient Level 1 Diagnoses Current use of anticoagulant therapy Z79.01 Assessment & Plan Assessment & Plan (1) Current use of anticoagulant therapy: Code(s): Z79.01 - ad copy writer (current) use of 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
== END 2023-07-11 15:17 | disposition home or self-care (01) ==
LOC: HO.ACS 12:58
PROVIDERS: PCP Hospitalist; Visit Provider Internal Medicine
DX: Z79.01 Long term (current) use of anticoagulants (principal)

== ENCOUNTER → 2023-07-11 12:58 | Outpatient (BNVA) | payer MEDICARE, SELFPAY | PROVIDERS: PCP Hospitalist; Visit Provider Internal Medicine | DX: Z86.73 Personal history of transient ischemic attack (TIA), and cerebral infarction without residual deficits (principal); Z79.01 Long term (current) use of anticoagulants; Z51.81 Encounter for therapeutic drug level monitoring | CPT/HCPCS: 85610; 99211 ==

== ENCOUNTER 2023-07-17 14:08 | Outpatient (AMB) | payer MEDICARE, SELFPAY ==
--- NOTE | 2023-07-17 14:17 | MHC.OFFVISCO ---
Intake Intake Visit Reasons: Anticoagulation Allergies bupropion [From Wellbutrin] Allergy (Intermediate, Verified 07/17/23 14:12) Nausea levofloxacin [From LEVAQUIN] Allergy (Intermediate, Verified 07/17/23 14:12) GI UPSET/ WEIGHT LOSS, anaphylaxis ibuprofen Allergy (Mild, Verified 07/17/23 14:12) GI DISTRESS Medication List - Last Reconciled 07/17/23 by Cherrie Parker RN acetaminophen 500 mg PO Q6H PRN albuterol sulfate 90 mcg/actuation 1 inh PO Q4H PRN albuterol sulfate 90 mcg/actuation 2 puffs PO Q6H PRN albuterol sulfate 2.5 mg (3 mL) continuous nebulization QID PRN aspirin 81 mg PO DAILY atorvastatin 20 mg PO DAILY azithromycin 250 mg PO 3XW 28 days calcium citrate 500 mg (2 x 250 mg calcium) PO BID 90 days carvedilol 3.125 mg PO BID cholecalciferol (vitamin D3) 100 mcg (2 x 50 mcg (2,000 unit)) PO DAILY 90 days diltiazem HCl 120 mg PO BID [ENSURE / BOOST PO DAILY] [id number]-auhrselkx-stoqmpyv 200-62.5-25 mcg (Trelegy Ellipta) 1 ea PO DAILY nebulizers As directed oxycodone 10 mg PO Q6H oxycodone ER (OxyContin) 10 mg PO BID Oxygen Home Use As directed [probiotics PO] sertraline 25 mg PO DAILY sodium chloride 7% 4 mL inhalation BID theophylline ER 400 mg PO DAILY warfarin 2.5 mg See Protocol PO DAILY Nursing Note INR: 1.5 in range for the bronchoscopy 07/18/23 CT scan of bladder and kidneys 07/20/23 Bronchoscopy, this , 07/23/23 MRI Monday at [facility] not wearing O2, BREATHING A LITTLE BETTER TODAY, states however he gets sob just getting dressed, no Hematuria Medications and supplements reviewed No changes in medications, or supplements, Denies any signs and symptoms of bleeding or bruising or clotting. Bleeding, bruising, clotting discussed Nutritional guidance given AVOID GREENS WHILE OFF WARFARIN, AVOID GREENS UNITL INR GREATER THAN 2.0 AND AVOID BOOST AFTER THE PROCEDURE X 3 DAYS, HAVE FOODS TO HELP RAISE THE INR AFTER THE PROCEDURE Dose: PT THOUGHT HE WAS TO HOLD YESTERDAY'S DOSE- HOLDING X 4 DAYS, Resume warfarin SAME DAY OF PROCEDURE - when MD states it is safe to resume 5MG x 1 day booster then 3.75mf x 3 days/ 2.5mgx 4 days F/U INR: 07/25/23 Patient verbalizes understanding of instructions given Anti-Coag Initial Assessment Social Hx Patient Tobacco Use Status: Former Tobacco user Tobacco use type: Cigarette Alcohol intake frequency: does not drink Coding Level of Care Code Est Patient Level 1 Diagnoses Current use of anticoagulant therapy Z79.01 Assessment & Plan Assessment & Plan (1) Current use of anticoagulant therapy: Code(s): Z79.01 - supervisor intermediates (current) use of 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 Medications: On Hold [probiotics] Hold Comment: pt states not taking at the moment PO
[2023-07-17 14:21] LABS: Prothrombin Time Whole Bld POC 17.6 sec (11.1-13.5); ~PT, ~INR - Anti Coag Clinic 1.5 (0.9-1.1)
== END 2023-07-17 15:01 | disposition home or self-care (01) ==
LOC: HO.ACS 14:08
PROVIDERS: PCP Hospitalist; Visit Provider Internal Medicine
DX: Z79.01 Long term (current) use of anticoagulants (principal)

== ENCOUNTER → 2023-07-17 14:08 | Outpatient (BNVA) | payer MEDICARE, SELFPAY | PROVIDERS: PCP Hospitalist; Visit Provider Internal Medicine | DX: Z86.73 Personal history of transient ischemic attack (TIA), and cerebral infarction without residual deficits (principal); Z79.01 Long term (current) use of anticoagulants; Z51.81 Encounter for therapeutic drug level monitoring | CPT/HCPCS: 85610; 99211 ==

== ENCOUNTER 2023-07-20 06:36 | Day surgery (SDC) | payer MEDICARE, SELFPAY ==
[2023-07-18 09:54] VITALS: BMI 16.1
--- NOTE | 2023-07-19 11:41 | HO.ANESPROP2 ---
Documented by User: Joan Richard NP 07/19/23 11:51 HPI - Anesthesia Eval Consult details Narrative: 73yo M for Bronchoscopy Fiberoptic Follows [facility] cardiovascular. Stable at last office visit 04/2023 Coumadin (PAF, h/o CVA) Chronic opiods (fentanyl patch) s/p RUL lobectomy d/t lung ca 2018 [facility] Active Problems Active Problems: All Active Problems (Updated 01/31/23 @ 22:02 by Tony Jhaveri MD) Chest pain (Acute) Dyspnea (Acute) CHF (congestive heart failure) (Acute) Bronchiectasis (Acute) Pulmonary fibrosis (Acute) Pulmonary nodules (Acute) Hx of cancer of lung (Acute) COPD (chronic obstructive pulmonary disease) (Acute) Bronchiectasis (Acute) Current use of anticoagulant therapy (Acute) Cerebrovascular disease (Acute) Vitamin D deficiency (Acute) Hypogonadotropic hypogonadism (Acute) Osteoporosis (Acute) Past Medical History Medical History (Updated 01/31/23 @ 22:02 by Tony Jhaveri MD) Bronchiectasis Pulmonary fibrosis Pulmonary nodules Bronchiectasis History of MRSA infection Arthritis Back pain Hx of spinal stenosis Lab test negative for COVID-19 virus Arrhythmia Hx of Clostridium difficile infection Hx of cancer of lung On anticoagulant therapy Elevated cholesterol Hx of ulcerative colitis CVA (cerebral vascular accident) COPD (chronic obstructive pulmonary disease) AAA (abdominal aortic aneurysm) Vitamin D deficiency Hypogonadotropic hypogonadism Osteoporosis Family History Family History Father AAA (abdominal aortic aneurysm) Mother No problems noted. Family history of problems with anesthesia: No Surgical History Surgical History H/O colonoscopy History of bowel resection History of bronchoscopy History of lobectomy of lung Hx of cervical discectomy History of Problems with Anesthesia: No Social History Social History (Updated 06/21/23 @ 09:40 by Leila Sinclair LPN) Are you a primary day care home provider to a significant other at home: No Do you presently have visiting nurse or other home services: No Patient Tobacco Use Status: Former Tobacco user Tobacco use type: Cigarette Years Smoked: 54 Years Substance Use Type: Marijuana Advance Directives: No Advance Directives Information Provided: Yes Meds Allergies Allergy/AdvReac Type Severity Reaction Status Date / Time bupropion [From Wellbutrin] Allergy Intermediate Nausea Verified 07/17/23 14:12 levofloxacin [From LEVAQUIN] Allergy Intermediate GI UPSET/ Verified 07/17/23 14:12 WEIGHT LOSS, anaphylaxis ibuprofen Allergy Mild GI DISTRESS Verified 07/17/23 14:12 Home Medications Medication Instructions Recorded Confirmed Last Taken Type albuterol sulfate 90 mcg/actuation 1 inh PO Q4H PRN Shortness Of 03/06/20 07/17/23 Unknown History breath activated powder inhaler Breath atorvastatin 20 mg tablet 20 mg PO DAILY 06/26/20 07/17/23 Unknown History albuterol sulfate 90 mcg/actuation 2 puff PO Q6H PRN 08/03/20 07/17/23 Unknown History aerosol inhaler oxycodone 10 mg tablet 10 mg PO Q6H 08/19/21 07/17/23 Unknown History oxycodone 10 mg tablet,crush 10 mg PO BID 08/19/21 07/17/23 Unknown History resistant,extended release 12 hr (OxyContin) theophylline 400 mg 400 mg PO DAILY 10/29/21 07/17/23 Unknown History tablet,extended release 24 hr aspirin 81 mg tablet,delayed 81 mg PO DAILY 12/14/21 07/17/23 Unknown History release acetaminophen 500 mg tablet 500 mg PO Q6H PRN 02/03/22 07/17/23 Unknown History nebulizers 02/03/22 07/17/23 Unknown History probiotics PO 03/31/22 07/17/23 Unknown History carvedilol 3.125 mg tablet 3.125 mg PO BID 06/30/22 07/17/23 Unknown History sertraline 25 mg tablet 25 mg PO DAILY 07/28/22 07/17/23 Unknown History diltiazem HCl 120 mg tablet 120 mg PO BID 09/23/22 07/17/23 Unknown History Oxygen Home Use 10/04/22 07/17/23 Unknown History ENSURE / BOOST PO DAILY 04/27/23 07/17/23 Unknown History Exam Height,Weight and Vital Signs: Height 5 ft 6 in Weight 45.359 kg Pertinent Lab Results Pertinent Lab Results: Laboratory Tests 06/01/23 15:06 WBC 7.6 Hgb 11.6 L Hct 35.9 L Plt Count 247 D Sodium 140 Potassium 3.6 Chloride 105 Carbon Dioxide 27 BUN 11 Creatinine 0.87 Narrative Narrative: EKG 12/2022 SR with occ PVC Cardiac cath 12/2022 No evidence of CAD MCGILL likely pulmo Assessment and Plan Assessment Anesthesia Assessment: Chart Reviewed Final Anesthetic Review Family History of Problems with Anesthesia: No History of Problems with Anesthesia: No Documented by User: Brendan Sheht MD 07/20/23 07:16 PMFSH Past Medical History Medical History (Updated 01/31/23 @ 22:02 by Tony Jhaveri MD) Bronchiectasis Pulmonary fibrosis Pulmonary nodules Bronchiectasis History of MRSA infection Arthritis Back pain Hx of spinal stenosis Lab test negative for COVID-19 virus Arrhythmia Hx of Clostridium difficile infection Hx of cancer of lung On anticoagulant therapy Elevated cholesterol Hx of ulcerative colitis CVA (cerebral vascular accident) COPD (chronic obstructive pulmonary disease) AAA (abdominal aortic aneurysm) Vitamin D deficiency Hypogonadotropic hypogonadism Osteoporosis Family History Family History Father AAA (abdominal aortic aneurysm) Mother No problems noted. Surgical History Surgical History H/O colonoscopy History of bowel resection History of bronchoscopy History of lobectomy of lung Hx of cervical discectomy Social History Social History (Updated 06/21/23 @ 09:40 by Leila Sinclair LPN) Are you a primary day care home provider to a significant other at home: No Do you presently have visiting nurse or other home services: No Patient Tobacco Use Status: Former Tobacco user Tobacco use type: Cigarette Years Smoked: 54 Years Substance Use Type: Marijuana Advance Directives: No Advance Directives Information Provided: Yes Meds Allergies Allergy/AdvReac Type Severity Reaction Status Date / Time bupropion [From Wellbutrin] Allergy Intermediate Nausea Verified 07/17/23 14:12 levofloxacin [From LEVAQUIN] Allergy Intermediate GI UPSET/ Verified 07/17/23 14:12 WEIGHT LOSS, anaphylaxis ibuprofen Allergy Mild GI DISTRESS Verified 07/17/23 14:12 Home Medications Medication Instructions Recorded Confirmed Last Taken Type albuterol sulfate 90 mcg/actuation 1 inh PO Q4H PRN Shortness Of 03/06/20 07/17/23 Unknown History breath activated powder inhaler Breath atorvastatin 20 mg tablet 20 mg PO DAILY 06/26/20 07/17/23 Unknown History albuterol sulfate 90 mcg/actuation 2 puff PO Q6H PRN 08/03/20 07/17/23 Unknown History aerosol inhaler oxycodone 10 mg tablet 10 mg PO Q6H 08/19/21 07/17/23 Unknown History oxycodone 10 mg tablet,crush 10 mg PO BID 08/19/21 07/17/23 Unknown History resistant,extended release 12 hr (OxyContin) theophylline 400 mg 400 mg PO DAILY 10/29/21 07/17/23 Unknown History tablet,extended release 24 hr aspirin 81 mg tablet,delayed 81 mg PO DAILY 12/14/21 07/17/23 Unknown History release acetaminophen 500 mg tablet 500 mg PO Q6H PRN 02/03/22 07/17/23 Unknown History nebulizers 02/03/22 07/17/23 Unknown History probiotics PO 03/31/22 07/17/23 Unknown History carvedilol 3.125 mg tablet 3.125 mg PO BID 06/30/22 07/17/23 Unknown History sertraline 25 mg tablet 25 mg PO DAILY 07/28/22 07/17/23 Unknown History diltiazem HCl 120 mg tablet 120 mg PO BID 09/23/22 07/17/23 Unknown History Oxygen Home Use 10/04/22 07/17/23 Unknown History ENSURE / BOOST PO DAILY 04/27/23 07/17/23 Unknown History Exam Airway Mallampati Class: II TM Dist: >3cm Neck ROM: Full Denture: Upper and Lower Loose/Missing/Broken Teeth: No Heart: irr rhythm Lungs: cta but distant Assessment and Plan Assessment Anesthesia Assessment: Anesthesia Plan Discussed and Smoking Cess. Discussed Final Anesthetic Review NPO: Yes ASA Class: IV Final Preanesthetic Review: No Changes in Pt Med Stat, Meds/Allgs Chart Reviewed, Consent Obtained/Reviewed and Anes Risks/Benef Reviewed Patient Risk: High Procedure Risk: High Anesthetic Plan Anesthetic Plan: GA Disposition: Standard PACU
[2023-07-20] VITALS (8 sets, daily range): BP systolic 98–127; BP diastolic 55–64; PULSE 73–98; RESP 16–22; TEMP 36.2–37.7; O2SAT 95–99; BMI 16.1
[2023-07-20 07:16] LABS: Prothrombin Time 12.7 SEC (11.1-13.3)
[2023-07-20] MEDS: Lactated Ringers 1,000 ML 50 ML IVCONT (07:19)
--- NOTE | 2023-07-20 08:06 | MHC.SHP ---
Pre-Procedural Eval Section A - 24 Hr Update-Section A only Date of Service: 07/20/23 The patient is an INPATIENT: No Changes since office visit: No Cold of Flu in the past 2 weeks, No New Medical Problems, No Changes in Medication and No Patient answered all questions Section B - Complete if H&P > 30 days Chief Complaint: Bronchiectasis, uncomplicated Allergies: Allergies Allergy/AdvReac Type Severity Reaction Status Date / Time bupropion [From Wellbutrin] Allergy Intermediate Nausea Verified 07/17/23 14:12 levofloxacin [From LEVAQUIN] Allergy Intermediate GI UPSET/ Verified 07/17/23 14:12 WEIGHT LOSS, anaphylaxis ibuprofen Allergy Mild GI DISTRESS Verified 07/17/23 14:12 Plan Diagnosis/Plan: Unchanged (bronchoscopy. Has been off the Coumadin for 3 days followed by the coumadin clinic) I have reviewed the history and physical and performed a pertinent physical examination on my patient. No changes have occurred unless specified. Time Spent With Patient Time: Total time managing care of this patient today ____ minutes.
--- NOTE | 2023-07-20 09:48 | P.BOP_ITS ---
Brief Operative Note Date of Service: 07/20/23 Pre-op diagnosis: bronchiectasis Post-op diagnosis: other (bronchiectasis, endobronchial lesion RUL stump and RML) Procedure: Bronchoscopy with biopsies, brushings and clean out Implants: L Surgeon: Tony Jhaveri MD Anesthesia: GETA Was an Director Of Teenage Activities used for this Procedure?: No Estimated blood loss (mL): 0 Pathology: other (RUL stump, RML) Condition: stable Disposition: same day
--- NOTE | 2023-07-20 11:53 | OP_ITS ---
DATE OF SERVICE: 07/20/2023 SURGEON: Tony Jhaveri MD PREOPERATIVE DIAGNOSIS: Bronchiectasis. POSTOPERATIVE DIAGNOSIS: PROCEDURE PERFORMED: Bronchoscopy with washings, brushings, and biopsies. ESTIMATED BLOOD LOSS: COMPLICATIONS: ANESTHESIA: General endotracheal anesthesia provided. The consent was obtained from the patient. ASSISTANTS: None. SPECIMENS: ASA CLASSIFICATION: 3. POSTOPERATIVE DIAGNOSES: Bronchiectasis and endobronchial lesion in the right upper lobe stump and also in the right middle lobe. DESCRIPTION OF PROCEDURE: After the patient was adequately sedated and intubated, the flexible digital bronchoscope was inserted via ET tube to the level of the trachea. The tracheal mucosa distally looked normal. The patient did have severe amount of copious purulent secretions, right more than left. At times, blocking the right mainstem bronchus completely. A microscopic brush was intruded into the right lower lobe purulent secretions and sent for microbiology. Next, using bronchial washings, bronchoscopic clean out was done with saline administered to the subsegmental level. Significant amount of purulent secretions and mucous plugs removed. After the complete clean out of the airways, we could better visualize the endobronchial mucosa up to the subsegmental level. The patient did have a right upper lobe lobectomy in the past and did have a stump line. That appears to be stable, although there was a slight yellowish small circumferential lesion close to the stump line. Therefore using forceps biopsies, a biopsy was collected in that area. The patient did have good hemostasis after the ice saline without any evidence of active bleeding. The specimen was sent in formalin for pathology. Next, the bronchoscope was then navigated to the right middle lobe where there was a small right polypoid type of lesion, pale in color with some neurovascularity. Using the forceps, 3 specimens were collected, and ice saline was used with good hemostasis. No evidence of any active bleeding at the end of the biopsies. Again, the bronchial airways were again assessed to make sure that there was no further debris, and the bronchoscope was then removed. The total endoscopic time 15 minutes. Patient tolerated the procedure well. Complications none. Interventions took place: 1. Clean up bronchoscopy for bronchiectasis and purulent secretions. 2. Microscopic brush. 3. Endobronchial biopsies of the right upper lobe stump and also the right middle lobe. Tony Jhaveri MD MR/MODL / [id number]
== END 2023-07-20 10:00 | disposition home or self-care (01) ==
PROVIDERS: Nurse Practitioner; PCP Hospitalist; Visit Provider Hospitalist
PROC: 0BJ08ZZ Inspection of Tracheobronchial Tree, Via Natural or Artificial Opening Endoscopic (ICD-10-PCS; CPT 31622; principal; 2023-07-20 08:00)
DX: J47.9 Bronchiectasis, uncomplicated (principal); J98.09 Other diseases of bronchus, not elsewhere classified; J44.9 Chronic obstructive pulmonary disease, unspecified; J84.9 Interstitial pulmonary disease, unspecified; J84.10 Pulmonary fibrosis, unspecified; R06.09 Other forms of dyspnea; R91.8 Other nonspecific abnormal finding of lung field; I48.0 Paroxysmal atrial fibrillation; E78.00 Pure hypercholesterolemia, unspecified; Z85.118 Personal history of other malignant neoplasm of bronchus and lung; Z90.2 Acquired absence of lung [part of]; Z86.14 Personal history of Methicillin resistant Staphylococcus aureus infection; Z86.73 Personal history of transient ischemic attack (TIA), and cerebral infarction without residual deficits; Z79.01 Long term (current) use of anticoagulants; Z79.82 Long term (current) use of aspirin; Z99.81 Dependence on supplemental oxygen; Z87.891 Personal history of nicotine dependence; Z88.1 Allergy status to other antibiotic agents; Z88.6 Allergy status to analgesic agent; Z88.8 Allergy status to other drugs, medicaments and biological substances; Z98.890 Other specified postprocedural states; Z79.899 Other long term (current) drug therapy
CPT/HCPCS: 31628; 31625; 31623; 36415; 85610; 87070; 87077; 87102; 87116; 87186; 87205; 87206; 88112; 88305; 88312; J0171; J1100; J2405; J2704

== ENCOUNTER → 2023-07-20 06:36 | Outpatient (BNV) | payer MEDICARE, SELFPAY | PROVIDERS: PCP Hospitalist; Visit Provider Hospitalist | DX: J47.9 Bronchiectasis, uncomplicated (principal) | CPT/HCPCS: 31623; 31624; 31625 ==

== ENCOUNTER 2023-07-25 13:00 | Outpatient (AMB) | payer MEDICARE, SELFPAY ==
[2023-07-25 13:13] LABS: Prothrombin Time Whole Bld POC 24.9 sec (11.1-13.5); ~PT, ~INR - Anti Coag Clinic 2.1 (0.9-1.1)
--- NOTE | 2023-07-25 13:19 | MHC.OFFVISCO ---
Intake Intake Visit Reasons: Anticoagulation Allergies bupropion [From Wellbutrin] Allergy (Intermediate, Verified 07/25/23 13:03) Nausea levofloxacin [From LEVAQUIN] Allergy (Intermediate, Verified 07/25/23 13:03) GI UPSET/ WEIGHT LOSS, anaphylaxis ibuprofen Allergy (Mild, Verified 07/25/23 13:03) GI DISTRESS Nursing Note INR: 2.1 in therapeutic range of 2-3 Medications and supplements reviewed: no changes No changes in health, diet, medications, or supplements, Denies any signs and symptoms of bleeding or bruising or clotting. Pt states blood in urine subsided. states will be having a cystoscopy on 08/03/23. Pt will call urologist and ask if he needs to hold warfarin pre procedure. Bleeding, bruising, clotting discussed Nutritional guidance given to review the food list and balance reds and greens Dose: 3.75mg X 3days and 2.5mg X4days F/U INR: 2 weeks Patient verbalizes understanding of instructions given Anti-Coag Initial Assessment Social Hx Patient Tobacco Use Status: Former Tobacco user Tobacco use type: Cigarette Alcohol intake frequency: does not drink Coding Level of Care Code Est Patient Level 1 Diagnoses Current use of anticoagulant therapy Z79.01 Assessment & Plan Assessment & Plan (1) Current use of anticoagulant therapy: Code(s): Z79.01 - adjunct faculty for medical terminology (current) use of 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
== END 2023-07-25 13:30 | disposition home or self-care (01) ==
LOC: HO.ACS 13:00
PROVIDERS: PCP Hospitalist; Visit Provider Internal Medicine
DX: Z79.01 Long term (current) use of anticoagulants (principal)

== ENCOUNTER → 2023-07-25 13:00 | Outpatient (BNVA) | payer MEDICARE, SELFPAY | PROVIDERS: PCP Hospitalist; Visit Provider Internal Medicine | DX: Z86.73 Personal history of transient ischemic attack (TIA), and cerebral infarction without residual deficits (principal); Z51.81 Encounter for therapeutic drug level monitoring; Z79.01 Long term (current) use of anticoagulants | CPT/HCPCS: 85610; 99211 ==

== ENCOUNTER 2023-07-27 11:14 | Outpatient (AMB) | payer MEDICARE, SELFPAY ==
--- NOTE | 2023-07-27 11:17 | A.OFFVIS_ITS ---
Intake Vital Signs 07/27/23 11:21 Height 5 ft 6 in Weight 100 lb BMI 16.1 Pulse 90 Pulse Source Pulse Oximeter Pulse Oximetry (%) 95 Oxygen Delivery Method Room Air Intake Visit Reasons: S/p bronch Investigation Specialist Required: No Allergies bupropion [From Wellbutrin] Allergy (Intermediate, Verified 07/27/23 11:56) Nausea levofloxacin [From LEVAQUIN] Allergy (Intermediate, Verified 07/27/23 11:56) GI UPSET/ WEIGHT LOSS, anaphylaxis ibuprofen Allergy (Mild, Verified 07/27/23 11:22) GI DISTRESS HPI HPI Comments History of Present Illness Details The patient is a 73-year-old gentleman with a significant pulmonary history. the patient does have a history of lung cancer diagnosed back in 2019 status post right upper lobectomy. Patient did not receive any chemo or radiation. He also carries diagnosis of COPD. He also has pulmonary nodules and also evidence of interstitial lung disease. His last CT scan of the chest was done back in August 2021 at [facility]. It appears that the patient has evidence of interstitial lung disease with underlying pulmonary fibrosis. Ther e is also evidence of bronchiectasis with extensive mucus plugging. He has pulmonary nodules. Some of the areas of pulmonary fibrosis appear to be coalescing and difficult to know if there is any recurrent malignancy. The radiologist recommended a close follow-up. The patient continues to have a worsening cough productive in nature. Yellowish to green sputum. We were able to perform a nebulized treatment with Xopenex and hypertonic saline and did send sputum for culture for both AFB and Gram staining culture. The patient has had a bronchoscopy in the past many years ago performed by a local thoracic surgeon and he tolerated that well. At this point he does not need a bronchoscopy but we have to work on his chest physical therapy. The patient does have a percussion valve already prescribed by his previous crankshaft balancer. At this time will increase his chest physical therapy to try to remove mucus plugging in the patient will need a repeat CT scan. In addition to that the patient has been getting samples of Trelegy which appears to be very effective in beneficial for him. However, is also very expensive and he is currently in the donut hole. I will send him a generic Wixela with hope that this will be less of a financial burden. 02/03/2022 the patient is here for a pulmonary follow-up visit. Overall he started to feel better. Although the having episodes of chest tightness and wheezing. He did have a CT scan of the chest sometime in the summer 2019 to could be consistent demonstrating persistent pulmonary density in addition to mucus plugging and bronchiectatic changes. He did start hypertonic saline with CPT with Acapella valve. This seems to be helping some. He also finds the Mucinex is helpful. His cultures were positive for Haemophilus influenzae. The AFB cultures for the reason cannot be done. The patient at this point will start azithromycin 3 times a week for his chronic bronchitis and bronchiectasis. He is scheduled to undergo repeat CT scans from hopeful that that proved the findings. The patient is also having wheezing. If the patient is not better with the azithromycin that with go ahead and start him on a course of prednisone again. He moved need to stay on a small dose for longer period time to provide some sustained improvement. 04/05/2022 the patient is here for a pulmonary follow-up visit. He started to complaining of increasing chest tightness and wheezing in addition to feeling tired with fatigue and achy. He always feels better on prednisone. The last couple weeks he stop using the prednisone in his symptoms restarted. Otherwise had been feeling well. Continues the azithromycin with good effect. We are still waiting for the sputum AFB to come back. We already treating for the Haemophilus influenzae. Continues use the nebulized treatments and also continues use Mucinex with good effect. At this time in be reasonable to put him back on small dose of prednisone. He may have a component of adrenal insufficiency from his chronic prednisone use. Will go ahead and check his random cortisol level before starting him on prednisone. the patient did have a repeat CT scan of the chest demonstrating interval improvement of his nodular densities which is reassuring. He will need a follow-up CT scan in the next 6- 12 months. 06/03/2022 the patient is here for a sick visit. He has had worsening chest tightness and wheezing the last several days. He did have some prednisone at home and he did increase his prednisone from 10 mg to 40 mg. Initially was helping but then went down to the 20 mg dose and he started again having difficulty with breathing significant shortness of breath. Moderate severity. Also had a cough and noticed that would have increased congestion when using the nebulizer. He will use the nebulizer just once a day. He he was also noted to have elevated blood pressure. He did see his primary care doctor. He has blood pressure medication was increased. In the meantime still having hard time breathing. In the office he does have significant wheezing. Therefore I did given 2 treatments of Xopenex. I do believe the that he will probably do better with DuoNeb as long as he does not develop any adverse effects. Therefore I did provide him with some samples of DuoNeb for him to try. I do want to use the nebulizer 3 times a day for now. The patient does have significant chest tightness. After the Xopenex he did a little better. 06/30/2022 the patient is here for a pulmonary follow-up visit. Overall the patient is starting to feel better. He is weaning down on the prednisone. He continues on the azithromycin 3 times a week. Overall his chest congestion has improved dramatically. He is very happy about that. Although he still complains of chest tightness and wheezing. He has been having to take care of his who is very ill and does have been a lot of additional stress and physical activity that he has had to do. He has gotten very winded with activity. During the office visit we did go for brief walking oximetry in the patient did desaturate down to around 91% with activity. It is likely that if he was going up a flight of stairs or outside going up a slant he likely will be desaturate further. He was symptomatic with increasing shortness of breath when his oxygen dropped to the low 90s. So happens that he was given a gift of a portable oxygen concentrator. And therefore he consider using that with activity specially when he is out of the house. For his respiratory medications he was some Wixela and then subsequently switched over to Trelegy. Trelegy seems to be better. Will go ahead and maximize the Trelegy from 100-200 at this time. Her 10/04/2022 the patient is here for pulmon adalid follow-up visit. Patient overall has been doing well although he still have is that chest congestion. Noticed more yellowish phlegm little hard to expectorate. Is using the Acapella valve and also the nebulized therapy. She continues use the oxygen. He has also been noticing increasing shortness of breath with minimal activity. We did go for brief walking oximetry and his pulse oximeter was able to stay around 94 95% throughout the ambulation although he was visibly dyspneic. His php developer recommended doing a cardiac catheterization. He went to know my thoughts as far as cardiac catheterization versus CT of the coronary arteries. I did state that the cardiac catheterizations getting get more information including pressures. I do believe that if he is going to have a cardiac catheterization he should have a right and left cardiac catheterization looking for potentially right sided limitations and cor pulmonale a loss well as pulmonary hypertension. The patient also will undergo blood work including an ABG or venous gas to assess his CO2. He does have hypercapnia and then starting him on a noninvasive ventilator will be helpful. Will also check his hemoglobin to make sure that he is not anemic that potentially can also account for his dyspnea on exertion. 01/31/2023 the patient is here for a pul monary follow-up visit. The patient overall has been about the same. Still complaining of shortness of breath in addition to productive cough. He had a complete cardiac workup which was reassuring without any blockages. The patient now will go ahead and request pulmonary function studies in order to get him to pulmonary rehabilitation to increase his respiratory capacity. The patient also had sputum culture done still growing the Acinetobacter bacteria and also Aspergillus. Will go ahead and treat again the Acinetobacter with doxycycline. We will also send another sputum right now says he brought the specimen. As far as the Aspergillus will hold off on treatment right now this is likely a colonizer. She continues with respiratory therapy is been helpful. He continues to lose weight and he is concerned that he has does not clearly now why he is losing weight. He con tinues on the oxygen supplementation with good effect. 06/01/2023 the patient is here for a pulmahendra hutchins follow-up visit. He is having hard time after having COVID. Had called in and we had sent him a prescription for Paxlovid but the patient was reluctant at that time. Afterwards he started developing worsening cough chest congestion shortness of breath. He has also had some weight loss. He has not been feeling well. The patient also started noticing some blood in the urine. He talked to his primary care doctor who gave him amoxicillin and he did have improvement. However, was only for 5 days and then the symptoms reoccurred. He did come in for a INR checking his INR levels have been steady but because of the hematuria the nursing staff became concerned. He will call them tomorrow. In the meantime he is feels more chest congestion. He has been using doxycycline but has not been helpful. Feels like she needs to go back on amoxicillin. He tolerated that well. [facility] his on going symptoms will go ahead and start him on Augmentin. He also also having some wheezing on exam is also him some prednisone. The patient should also have blood work, urine studies and also a chest x-ray before going home. 06/29/2023 the patient is here for a pulmo narmichael follow-up visit. He continues to cough she is congestion. Expectorate. He has multiple bugs that have been growing throughout the years. Most recently he grew stenotrophomonas. He was placed on doxycycline did get nauseous. I did give him some advice on how to take it appropriately specially since his the only medication he can take 4. In the meantime he is chest congestion significant moderate severity. With the worsening cough. Therefore we talked about perform any clean out bronchoscopy which is reasonable at this time. Will plan for bronchoscopy and then will follow-up afterwards. He continues use all his respiratory therapy which is partially helpful. 07/27/2023 the patient is here for a pulmd cuong follow-up visit. He is status post bronchoscopy. The patient had significant amount of purulent secretions throughout which was suctioned. The cultures were positive again for stenotrophomonas in addition to Acinetobacter. Is to resistant organisms difficult to treat. He is also on Coumadin make it difficult for him to tolerate antibiotics. Will go ahead and start him on Bactrim to see if we can treat both organisms although we still waiting for the sensitivities the stenotrophomonas. Will trying to adjust the Coumadin to make sure that he can tolerate the long course of antibiotics. He does not feel well today. He does have some chest tightness after the bronchoscopy. Therefore given a short course of prednisone. Will go ahead and request blood work at this time. [facility] Medical History (Updated 01/31/23 @ 22:02 by Tony Jhaveri MD) Bronchiectasis Pulmonary fibrosis Pulmonary nodules Bronchiectasis History of MRSA infection Arthritis Back pain Hx of spinal stenosis Lab test negative for COVID-19 virus Arrhythmia Hx of Clostridium difficile infection Hx of cancer of lung On anticoagulant therapy Elevated cholesterol Hx of ulcerative colitis CVA (cerebral vascular accident) COPD (chronic obstructive pulmonary disease) AAA (abdominal aortic aneurysm) Vitamin D deficiency Hypogonadotropic hypogonadism Osteoporosis Surgical History H/O colonoscopy History of bowel resection History of bronchoscopy History of lobectomy of lung Hx of cervical discectomy Family History Father AAA (abdominal aortic aneurysm) Mother No problems noted. Social History (Updated 06/21/23 @ 09:40 by Leila Sinclair LPN) Are you a primary care manager to a significant other at home: No Do you presently have visiting nurse or other home services: No Patient Tobacco Use Status: Former Tobacco user Tobacco use type: Cigarette Years Smoked: 54 Years Substance Use Type: Marijuana Review of Systems Const Reports fatigue, Denies fever(s) and Reports weight loss Eyes Denies eye discharge ENT Denies change in voice Card Denies chest pain and Reports dyspnea on exertion Resp Reports chest congestion, Reports cough, Denies hemoptysis, Reports dyspnea on exertion and Reports wheezing GI Reports no additional complaints Reports as per HPI and Reports hematuria Musc Reports no additional complaints Skin/Breast Denies rash Neuro Reports no additional complaints Endo Reports no additional complaints and Reports fatigue Ortiz/Lymph Denies easy bleeding, Denies easy bruising and Denies lymphadenopathy Aller/Immun Reports wheezing Physical Exam Vital Signs: Last Vital Signs Pulse 90 07/27/23 11:21 Pulse Ox 95 07/27/23 11:21 Oxygen Delivery Method Room Air 07/27/23 11:21 BMI result Body Mass Index 16.1 Const General: comfortable HEENT Head: Yes normal to inspection Eyes General: appearance normal, both eyes and all related structures Neck Neck: Yes supple Chest Chest palpation & inspection: normal inspection of the chest Resp Auscultation: no crackles, no rales, wheezes and diminished lung sounds Cardio Rate: regular rate Rhythm: regular rhythm Heart sounds: S1 normal heart sound present and S2 normal heart sound present Extrem General: Yes no clubbing, cyanosis or edema Assessment & Plan Assessment & Plan (1) Bronchiectasis: Code(s): J47.9 - Bronchiectasis, uncomplicated Qualifiers: Bronchiectasis type: uncomplicated Qualified Code(s): J47.9 - Bronchiectasis, uncomplicated (2) COPD (chronic obstructive pulmonary disease): Code(s): J44.9 - Chronic obstructive pulmonary disease, unspecified Qualifiers: COPD type: COPD with acute exacerbation Qualified Code(s): J44.1 - Chronic obstructive pulmonary disease with (acute) exacerbation (3) Bronchiectasis: Code(s): J47.9 - Bronchiectasis, uncomplicated Qualifiers: Bronchiectasis type: uncomplicated Qualified Code(s): J47.9 - Bronchiectasis, uncomplicated (4) Dyspnea: Code(s): R06.00 - Dyspnea, unspecified Qualifiers: Dyspnea type: dyspnea on exertion Qualified Code(s): R06.09 - Other forms of dyspnea (5) Pulmonary fibrosis: Code(s): J84.10 - Pulmonary fibrosis, unspecified (6) Pulmonary nodules: Code(s): R91.8 - Other nonspecific abnormal finding of lung field (7) Hx of cancer of lung: Comment: with right upper [id number] not need chemotherapy or radiation Code(s): Z85.118 - Personal history of other malignant neoplasm of bronchus and lung Plan started on Bactrim 8-12 weeks, need to monitor INR closely start prednisone taper continue trelegy 200mcg daily nebulized therapy with albuterol followed by hypertonic saline followed by Aerobika valve twice a day hypertonic saline 3% to be started for his chest physical therapy Pulmonary rehab Mucinex as needed Bloodwork follow-up in after bronchoscopy Orders: Orders PT, INR - Anti Coag Today J47.9 - Bronchiectasis, uncomplicated Venous Blood Gas Today J47.9 - Bronchiectasis, uncomplicated Complete Blood Count Auto Diff Today J47.9 - Bronchiectasis, uncomplicated Basic Metabolic Panel Today J47.9 - Bronchiectasis, uncomplicated Liver Panel Today J47.9 - Bronchiectasis, uncomplicated Medications: New prednisone PO daily; Take 2 tabs daily x 5 days, then 1 tab daily x 5 days 15 tabs 0RF 10 days Coding Level of Care Code Est Pt Level 4 (14902) Diagnoses Bronchiectasis without complication J47.9 Bronchiectasis type: uncomplicated Chronic obstructive pulmonary disease with acute exacerbation J44.1 COPD type: COPD with acute exacerbation Dyspnea on exertion R06.09 Dyspnea type: dyspnea on exertion Pulmonary fibrosis J84.10 Pulmonary nodules R91.8 Hx of cancer of lung Z85.118 Time Spent (min) 17
[2023-07-27 11:21] VITALS: PULSE 90; O2SAT 95; BMI 16.1
== END 2023-07-27 11:35 | disposition home or self-care (01) ==
PROVIDERS: PCP Hospitalist; Visit Provider Hospitalist
DX: J47.9 Bronchiectasis, uncomplicated (principal); J44.1 Chronic obstructive pulmonary disease with (acute) exacerbation; R06.09 Other forms of dyspnea; J84.10 Pulmonary fibrosis, unspecified; R91.8 Other nonspecific abnormal finding of lung field; Z85.118 Personal history of other malignant neoplasm of bronchus and lung
CPT/HCPCS: 99214

== ENCOUNTER 2023-07-27 11:14 | Outpatient (REF) | payer MEDICARE, SELFPAY ==
[2023-07-27 11:52] LABS: MANUAL DIFF FLAG NO
[2023-07-27 11:55] LABS: Venous Blood Gas Refer to POC result
[2023-07-27 12:02] LABS: VBG pCO2 50 mmHg; VBG pH 7.38 (7.32-7.43)
[2023-07-27 12:03] LABS: VBG Base Excess 4.1 mmol/L; VBG HCO3 30 mmol/L (22-26); VBG O2 % Saturation < 30.0 %; VBG pO2 20 mmHg
[2023-07-27 12:04] LABS: Basophils Absolute Auto 0.1 X10*3/uL (0.0-0.2); Basophils Percent Auto 0.9 % (0-2); Eosinophils Absolute Auto 0.2 X10*3/uL (0.0-0.4); Eosinophils Percent Auto 2.4 % (0-4); Hematocrit 37.5 % (42.0-52.0); Hemoglobin 11.9 g/dl (14.0-18.0); Imm Gran Abs Auto 0.04 X10*3/uL (0.00-0.03); Imm Gran Pct Auto 0.6 % (0.0-0.4); Lymphocytes Absolute Auto 1.3 X10*3/uL (1.2-4.9); Lymphocytes Percent Auto 19.6 % (20-40); Mean Corpuscular HGB Conc 31.7 g/dl (31.0-36.0); Mean Corpuscular Hemoglobin 29.2 pg (27.0-33.0); Mean Corpuscular Volume 92.1 fL (80.0-98.0); Mean Platelet Volume 9.3 fL (9.4-12.4); Monocytes Percent Auto 15.2 % (2-11); Neutrophils Absolute Auto 4.1 x10*3/uL (2.0-8.3); Neutrophils Percent Auto 61.3 % (45-73); Platelet Count 297 X10*3/uL (160-400); Red Blood Count 4.07 X10*6/uL (4.60-5.80); Red Cell Distribution Width 13.4 % (11.0-16.0); White Blood Count 6.7 X10*3/uL (4.8-10.8)
[2023-07-27 12:46] LABS: Alanine Aminotransferase 9 U/L (0-40); Albumin Level 3.3 g/dL (3.5-5.0); Alkaline Phosphatase 77 U/L (39-117); Anion Gap 11 (12-20); Aspartate Amino Transferase 13 U/L (5-37); Bilirubin Direct < 0.2 mg/dL (0.0-0.5); Bilirubin Total 0.1 mg/dL (0.0-1.0); Blood Urea Nitrogen 8 mg/dL (9-16); Carbon Dioxide 28 mmol/L (22-29); Chloride 104 mmol/L (96-108); Estimated Glomerular Filt Rate > 60; Glucose Random 138 mg/dL (60-115); Potassium 3.4 mmol/L (3.3-5.1); Sodium 140 mmol/L (135-145); Total Protein 6.3 g/dL (6.5-8.0)
[2023-07-27 12:50] LABS: Erythrocyte Sedimentation Rate 38 MM/HR (0-15)
== END 2023-07-27 11:15 | disposition home or self-care (01) ==
LOC: HO.LAB 11:14
PROVIDERS: PCP Hospitalist; Visit Provider Hospitalist
DX: Z86.19 Personal history of other infectious and parasitic diseases (principal); Z51.81 Encounter for therapeutic drug level monitoring; Z79.01 Long term (current) use of anticoagulants; J47.9 Bronchiectasis, uncomplicated; J44.1 Chronic obstructive pulmonary disease with (acute) exacerbation; R06.09 Other forms of dyspnea; J84.10 Pulmonary fibrosis, unspecified; R91.8 Other nonspecific abnormal finding of lung field; Z85.118 Personal history of other malignant neoplasm of bronchus and lung
CPT/HCPCS: 36415; 80048; 80076; 82803; 85025; 85610; 85652; 99211; 99212

== ENCOUNTER 2023-07-27 11:56 | Outpatient (AMB) | payer MEDICARE, SELFPAY ==
[2023-07-27 12:03] LABS: ~PT, ~INR - Anti Coag Clinic 2.6 (0.9-1.1)
--- NOTE | 2023-07-27 12:10 | MHC.OFFVISCO ---
Intake Intake Visit Reasons: Anticoagulation Allergies bupropion [From Wellbutrin] Allergy (Intermediate, Verified 07/27/23 11:56) Nausea levofloxacin [From LEVAQUIN] Allergy (Intermediate, Verified 07/27/23 11:56) GI UPSET/ WEIGHT LOSS, anaphylaxis ibuprofen Allergy (Mild, Verified 07/27/23 11:22) GI DISTRESS Medication List - Last Reconciled 07/27/23 by Cherrie Parker RN acetaminophen 500 mg PO Q6H PRN albuterol sulfate 90 mcg/actuation 1 inh PO Q4H PRN albuterol sulfate 90 mcg/actuation 2 puffs PO Q6H PRN albuterol sulfate 2.5 mg (3 mL) continuous nebulization QID PRN aspirin 81 mg PO DAILY atorvastatin 20 mg PO DAILY azithromycin 250 mg PO 3XW 28 days calcium citrate 500 mg (2 x 250 mg calcium) PO BID 90 days carvedilol 3.125 mg PO BID cholecalciferol (vitamin D3) 100 mcg (2 x 50 mcg (2,000 unit)) PO DAILY 90 days diltiazem HCl 120 mg PO BID [ENSURE / BOOST PO DAILY] [id number] 200-62.5-25 mcg (Trelegy Ellipta) 1 ea PO DAILY nebulizers As directed oxycodone 10 mg PO Q6H oxycodone ER (OxyContin) 10 mg PO BID Oxygen Home Use As directed prednisone PO daily; Take 2 tabs daily x 5 days, then 1 tab daily x 5 days 10 days [probiotics PO] sertraline 25 mg PO DAILY sodium chloride 7% 4 mL inhalation BID sulfamethoxazole-trimethoprim 800-160 mg (Bactrim DS) 1 tab PO Q12H theophylline ER 400 mg PO DAILY warfarin 2.5 mg See Protocol PO DAILY Nursing Note INR: 2.6 in therapeutic range Medications and supplements reviewed For lung infection pt is being treated with bactrim bid x 30 days which can raise the INR per Dr Jhaveri he decreased warfarin to 2.5mg daily as of 07/25/23 INR jumped up from 2.1 to 2.6. pt to also have cystoscopy 08/03/23 - no warfarin hold per pt The antibiotic can raise the INR - will decrease wafarin dose a little more to minimize the risk of bleeding and check the INR day before the cysctoscopy next wk Denies any signs and symptoms of bleeding or bruising or clotting. Bleeding, bruising, clotting discussed Nutritional guidance given - eat a mix of fruits and vegetables - eat greens over the weekend Dose: 2.5mg x 6 days/ 1.25mg x 1 day F/U INR: 08/02/23 day prior cystoscopy Patient verbalizes understanding of instructions given Anti-Coag Initial Assessment Social Hx Patient Tobacco Use Status: Former Tobacco user Tobacco use type: Cigarette Alcohol intake frequency: does not drink Coding Level of Care Code Est Patient Level 1 Diagnoses Current use of anticoagulant therapy Z79.01 Assessment & Plan Assessment & Plan (1) Current use of anticoagulant therapy: Code(s): Z79.01 - 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
== END 2023-07-27 12:23 | disposition home or self-care (01) ==
LOC: HO.ACS 11:56
PROVIDERS: PCP Hospitalist; Visit Provider Internal Medicine
DX: Z79.01 Long term (current) use of anticoagulants (principal)

== ENCOUNTER 2023-08-02 14:01 | Outpatient (AMB) | payer MEDICARE, SELFPAY ==
--- NOTE | 2023-08-02 14:14 | MHC.OFFVISCO ---
Intake Intake Visit Reasons: Anticoagulation Allergies bupropion [From Wellbutrin] Allergy (Intermediate, Verified 08/02/23 14:08) Nausea levofloxacin [From LEVAQUIN] Allergy (Intermediate, Verified 08/02/23 14:08) GI UPSET/ WEIGHT LOSS, anaphylaxis ibuprofen Allergy (Mild, Verified 08/02/23 14:08) GI DISTRESS Nursing Note INR: 3.0- in therapeutic range of 2-3 Medications and supplements reviewed- cont on bactrim ds bid, prednisone is 10mg daily No changes in health, diet, medications, or supplements, Denies any signs and symptoms of bleeding or bruising or clotting. Bleeding, bruising, clotting discussed - pt states hematuria, rust colored without clots Nutritional guidance given - pt does not eat greens Dose: 1.25mg today then cont 2.5mg x 6. 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
[2023-08-02 14:15] LABS: Prothrombin Time Whole Bld POC 35.8 sec (11.1-13.5)
== END 2023-08-02 15:50 | disposition home or self-care (01) ==
LOC: HO.ACS 14:01
PROVIDERS: PCP Hospitalist; Visit Provider Internal Medicine
DX: Z79.01 Long term (current) use of anticoagulants (principal)

== ENCOUNTER → 2023-08-02 14:01 | Outpatient (BNVA) | payer MEDICARE, SELFPAY | PROVIDERS: PCP Hospitalist; Visit Provider Internal Medicine | DX: Z86.73 Personal history of transient ischemic attack (TIA), and cerebral infarction without residual deficits (principal); Z79.01 Long term (current) use of anticoagulants; Z51.81 Encounter for therapeutic drug level monitoring | CPT/HCPCS: 85610; 99211 ==

== ENCOUNTER 2023-08-08 13:01 | Outpatient (AMB) | payer MEDICARE, SELFPAY ==
[2023-08-08 13:14] LABS: Prothrombin Time Whole Bld POC 40.7 sec (11.1-13.5); ~PT, ~INR - Anti Coag Clinic 3.4 (0.9-1.1)
--- NOTE | 2023-08-08 13:57 | MHC.OFFVISCO ---
Intake Intake Visit Reasons: Anticoagulation Allergies bupropion [From Wellbutrin] Allergy (Intermediate, Verified 08/08/23 13:04) Nausea levofloxacin [From LEVAQUIN] Allergy (Intermediate, Verified 08/08/23 13:04) GI UPSET/ WEIGHT LOSS, anaphylaxis ibuprofen Allergy (Mild, Verified 08/08/23 13:04) GI DISTRESS Medication List - Last Reconciled 08/08/23 by Cherrie Parker RN acetaminophen 500 mg PO Q6H PRN albuterol sulfate 90 mcg/actuation 1 inh PO Q4H PRN albuterol sulfate 90 mcg/actuation 2 puffs PO Q6H PRN albuterol sulfate 2.5 mg (3 mL) continuous nebulization QID PRN aspirin 81 mg PO DAILY atorvastatin 20 mg PO DAILY azithromycin 250 mg PO 3XW 28 days calcium citrate 500 mg (2 x 250 mg calcium) PO BID 90 days carvedilol 3.125 mg PO BID cholecalciferol (vitamin D3) 100 mcg (2 x 50 mcg (2,000 unit)) PO DAILY 90 days diltiazem HCl 120 mg PO BID [ENSURE / BOOST PO DAILY] [id number]-bomwkwvjn-lfcxmcyl 200-62.5-25 mcg (Trelegy Ellipta) 1 ea PO DAILY nebulizers As directed oxycodone 10 mg PO Q6H oxycodone ER (OxyContin) 10 mg PO BID Oxygen Home Use As directed [probiotics PO] sertraline 25 mg PO DAILY sodium chloride 7% 4 mL inhalation BID sulfamethoxazole-trimethoprim 800-160 mg (Bactrim DS) 1 tab PO Q12H theophylline ER 400 mg PO DAILY warfarin 2.5 mg See Protocol PO DAILY Nursing Note INR 3.4 out of therapeutic range Medications and supplements reviewed Patient status: ON BACTRIM BID, upset stomach for a few days and held antbx x 2 days then resumed, 08/17/23 -States he has a large kidney stone that needs to be removed, procedure to be done next week, to be on warfarin hold and bridge with lovneox, Urologist wants clearance from Dr Jhaveri - he is not here this week. Call to [facility] for Dr Choudhary- left the [facility] with concerns regarding DR Jhaveri not here, warfarin and lovenox bridging with hematuria present (rust colored urine) 98 lbs question bid or once daily for lovenox due to weight Medications or supplements: intermediate manager bactrim treatment for lungs Diet: fair - enc a boost or ensure today Denies any signs and symptoms of bleeding or clotting or unusual bruising Bleeding, bruising, clotting discussed Nutritional guidance given: review food list, greens or a boost or ensure today Dose: decrease dose 1.25mg tue thur sat/ 2.5mg x 4 days F/U INR Date : 08/18/23 if no procedure -chk INR 08/22/23 after procedure ?? Patient verbalizing understanding of instructions given. 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
== END 2023-08-08 14:18 | disposition home or self-care (01) ==
LOC: HO.ACS 13:01
PROVIDERS: PCP Hospitalist; Visit Provider Internal Medicine
DX: Z79.01 Long term (current) use of anticoagulants (principal)

== ENCOUNTER → 2023-08-08 13:01 | Outpatient (BNVA) | payer MEDICARE, SELFPAY | PROVIDERS: PCP Hospitalist; Visit Provider Internal Medicine | DX: Z86.73 Personal history of transient ischemic attack (TIA), and cerebral infarction without residual deficits (principal); Z79.01 Long term (current) use of anticoagulants; Z51.81 Encounter for therapeutic drug level monitoring | CPT/HCPCS: 85610; 99211 ==

== ENCOUNTER 2023-08-15 13:33 | Outpatient (AMB) | payer MEDICARE, SELFPAY ==
--- NOTE | 2023-08-15 13:35 | MHC.OFFVIS ---
Vital Signs 08/15/23 13:36 Height 5 ft 6 in Weight 104 lb 2 oz BMI 16.8 BP 102/68 Blood Pressure Location Rt brachial Position Sitting Pulse 82 Pulse Source Pulse Oximeter Pulse Oximetry (%) 98 Oxygen Delivery Method Room Air Intake Visit Reasons: clearance for stone removal Allergies bupropion [From Wellbutrin] Allergy (Intermediate, Verified 08/15/23 13:39) Nausea levofloxacin [From LEVAQUIN] Allergy (Intermediate, Verified 08/15/23 13:39) GI UPSET/ WEIGHT LOSS, anaphylaxis sulfamethoxazole [From Bactrim] Allergy (Intermediate, Verified 08/15/23 14:26) rash trimethoprim [From Bactrim] Allergy (Intermediate, Verified 08/15/23 14:26) rash ibuprofen Allergy (Mild, Verified 08/15/23 13:39) GI DISTRESS HPI HPI clearance for stone removal: Details: Dirk is a pleasant 73 year old male, former smoker, with underlying COPD, bronchiectasis on suppressive azithromycin, h/o lung cancer s/p RUL 2018. At baseline, he is moderately controlled on Trelegy, flutter valve and albuterol neb BID. He recently underwent bronchoscopy with Dr. Jhaveri which revealed strenoph matlifilia. He was treated with Bactrim, which he reported improvements in cough, however patient developed widespread erythematous rash on BLE from ankles to thighs as well as BLE after second day of use. He continues to report intermittent wheezing and productive cough with clear sputum. He feels that his dyspnea is at baseline and denies chest congestion after bronchoscopy. Today he presents for preoperative pulmonary evaluation for proposed lithrotripsy under moderate sedation. This is going to be performed 08/16 at [facility] with Dr. Choudhary. [facility] Medical History (Updated 08/15/23 @ 20:18 by Shahana Enrique NP) Bronchiectasis Pulmonary fibrosis Pulmonary nodules Bronchiectasis History of MRSA infection Arthritis Back pain Hx of spinal stenosis Lab test negative for COVID-19 virus Arrhythmia Hx of Clostridium difficile infection Hx of cancer of lung On anticoagulant therapy Elevated cholesterol Hx of ulcerative colitis CVA (cerebral vascular accident) COPD (chronic obstructive pulmonary disease) AAA (abdominal aortic aneurysm) Vitamin D deficiency Hypogonadotropic hypogonadism Osteoporosis Surgical History H/O colonoscopy History of bowel resection History of bronchoscopy History of lobectomy of lung Hx of cervical discectomy Family History Father AAA (abdominal aortic aneurysm) Mother No problems noted. Social History (Updated 06/21/23 @ 09:40 by Leila Sinclair LPN) Are you a primary housekeeper caregiver to a significant other at home: No Do you presently have visiting nurse or other home services: No Patient Tobacco Use Status: Former Tobacco user Tobacco use type: Cigarette Years Smoked: 54 Years Substance Use Type: Marijuana Review of Systems Const Denies chills, Denies excessive sweating, Denies fever(s), Denies headache(s) and Denies night sweats Eyes Denies dry eyes, Denies irritation and Denies itchy eyes ENT Reports Normal hearing present, Denies headache(s), Denies nasal congestion, Denies nasal discharge, Denies post nasal drip and Denies sore throat Card Denies chest pain, Denies chest pain at rest, Denies chest pain with activity, Denies claudication, Denies leg edema, Denies orthopnea and Denies paroxysmal nocturnal dyspnea Resp Denies chest congestion, Denies excessive phlegm production, Denies pain on inspiration, Denies pain with cough and Denies stridor Musc Denies myalgias Neuro Reports Normal hearing present and Denies headache(s) Endo Denies excessive sweating Ortiz/Lymph Denies lymphadenopathy Aller/Immun Denies itchy eyes and Denies seasonal rhinorrhea Physical Exam Vital Signs: Last Vital Signs Pulse 82 08/15/23 13:36 BP 102/68 08/15/23 13:36 Pulse Ox 98 08/15/23 13:36 Oxygen Delivery Method Room Air 08/15/23 13:36 BMI result Body Mass Index 16.8 Const General: cooperative, healthy appearing, comfortable, no acute distress, well developed and alert Orientation/consciousness: patient oriented x3 Limitations: no limitations HEENT Head: Yes normal to inspection, Yes normocephalic and Yes atraumatic Ears: hearing grossly normal bilaterally and external ears normal Eyes General: appearance normal, both eyes and all related structures Eyelids: Yes eyelids normal Sclerae: sclerae normal EOM: EOMs intact bilaterally Neck Neck: Yes normal visual inspection and Yes no lymphadenopathy Lymphatic: no lymphadenopathy noted Chest Chest palpation & inspection: normal inspection of the chest Resp Effort & Inspection: normal respiratory effort, able to speak in complete sentences, no audible wheezes, no stridor, not tachypneic, no tripod positioning and no use of accessory muscles Auscultation: diminished lung sounds Cardio Jugular venous distension: no JVD Rate: regular rate Rhythm: regular rhythm Skin Other: warm, dry General skin exam: no rashes or lesions noted Neuro General: patient oriented x3 Cranial nerves: Yes Normal hearing present Cognition (Neuro): normal cognition Gait exam (Neuro): Normal gait present Extrem General: Yes normal to inspection, Yes capillary refill normal, Yes no clubbing, cyanosis or edema and Yes no pedal edema Psych Appearance: grossly normal and well kempt Speech and movement: Normal speech and movement present and Clear speech present Affect: normal affect Attitude: cooperative Thought process: Normal thought process present Thought content: Normal thought content present Insight: Good insight present (Psych) Judgement: Good judgement present (Psych) Office Procedures 6 Minute Walk Time:: 14:11 SPO2 % at rest: 98 Pulse at rest: 98 SPO2 % during excercise: 94 Pulse during excercise: 110 SPO2 % after excercise: 95 Pulse after excercise: 98 Distance in yards walked: 250 Sherry Score: 6 Performance Observations:: Patient walked unassisted on level ground slowly. Patient was able to maintain O2 saturation of 94% or greater with pulse rate of 110 or less for the entirety of the walk. Patient notes he does tire easy with ambulation. Patient did not require supplemental O2. [address]3929 - 6 Minute Walk Assessment & Plan Assessment & Plan (1) Bronchiectasis: Code(s): J47.9 - Bronchiectasis, uncomplicated Category: Medical Qualifiers: Bronchiectasis type: uncomplicated Qualified Code(s): J47.9 - Bronchiectasis, uncomplicated (2) Pulmonary fibrosis: Code(s): J84.10 - Pulmonary fibrosis, unspecified Category: Medical (3) Hx of cancer of lung: Comment: with right upper [id number] not need chemotherapy or radiation Code(s): Z85.118 - Personal history of other malignant neoplasm of bronchus and lung Category: Medical (4) COPD (chronic obstructive pulmonary disease): Code(s): J44.9 - Chronic obstructive pulmonary disease, unspecified Category: Medical Qualifiers: COPD type: COPD with acute exacerbation Qualified Code(s): J44.1 - Chronic obstructive pulmonary disease with (acute) exacerbation (5) Encounter for preoperative pulmonary examination: Code(s): Z01.811 - Encounter for preprocedural respiratory examination Category: Medical Plan Dirk presents for periperative pulmonary evaluation for proposed lithrotripsy with moderate sedation with Dr[facility] at [facility] Recent bronchoscopy revealed Stenotrophomonas maltophilia which he attempted Bactrim however developed significant widespread erythematous rash. He will now be started on doxycyline and reassess response in one month. On exam there was no wheezing or rhonchi appreciated today. Overall, he feels back to baseline and optimized from a respiratory standpoint. 6MWT performed and patient does not require supplemental oxygen. Prior PFT revealed severe COPD with FEV1 23% and DLCO 36%. Given the severity of COPD and current respiratory infection, patient would be considered high risk for pulmonary complications, according to ARISCAT risk index. Consider bronchodilators in the perioperative period. All questions were answered and patient is in agreement of plan. Will follow up with Dr. Jhaveri after 1 month of doxycycline. Orders: Orders AMB 6 minute walk Today J44.1 - Chronic obstructive pulmonary disease with (acute) exacerbation, J47.9 - Bronchiectasis, uncomplicated Medications: New doxycycline hyclate 100 mg PO BID 60 caps 0RF Discontinued sulfamethoxazole-trimethoprim 800-160 mg (Bactrim DS) Discontinued Reason: Patient no longer taking 1 tab PO Q12H 60 tabs 2RF Coding Level of Care Code Est Pt Level 4 (47620) Diagnoses Bronchiectasis without complication J47.9 Bronchiectasis type: uncomplicated Pulmonary fibrosis J84.10 Hx of cancer of lung Z85.118 Chronic obstructive pulmonary disease with acute exacerbation J44.1 COPD type: COPD with acute exacerbation Encounter for preoperative pulmonary examination Z01.811 CPT Codes Coding ([id number])
[2023-08-15 13:36] VITALS: BP 102/68; PULSE 82; O2SAT 98; BMI 16.8
[2023-08-15 14:32] VITALS: PULSE 98; O2SAT 98
== END 2023-08-15 14:53 | disposition home or self-care (01) ==
PROVIDERS: PCP Hospitalist; Visit Provider Nurse Practitioner Family
DX: J47.9 Bronchiectasis, uncomplicated (principal); J84.10 Pulmonary fibrosis, unspecified; Z85.118 Personal history of other malignant neoplasm of bronchus and lung; K44.9 Diaphragmatic hernia without obstruction or gangrene
CPT/HCPCS: 94618; 99214

== ENCOUNTER → 2023-08-15 13:33 | Outpatient (BNVA) | payer MEDICARE, SELFPAY | PROVIDERS: PCP Hospitalist; Visit Provider Nurse Practitioner Family | DX: Z01.811 Encounter for preprocedural respiratory examination (principal); J44.1 Chronic obstructive pulmonary disease with (acute) exacerbation; J47.9 Bronchiectasis, uncomplicated; J84.10 Pulmonary fibrosis, unspecified; Z87.891 Personal history of nicotine dependence; Z85.118 Personal history of other malignant neoplasm of bronchus and lung | CPT/HCPCS: 94618; 99212 ==

== ENCOUNTER → 2023-08-17 14:37 | Outpatient (BNVA) | payer MEDICARE, SELFPAY | PROVIDERS: PCP Hospitalist; Visit Provider Internal Medicine ==

== ENCOUNTER 2023-08-25 14:03 | Outpatient (AMB) | payer MEDICARE, SELFPAY ==
[2023-08-25 14:16] LABS: Prothrombin Time Whole Bld POC 14.6 sec (11.1-13.5); ~PT, ~INR - Anti Coag Clinic 1.2 (0.9-1.1)
--- NOTE | 2023-08-25 14:47 | MHC.OFFVISCO ---
Intake Intake Visit Reasons: Anticoagulation Allergies bupropion [From Wellbutrin] Allergy (Intermediate, Verified 08/25/23 14:09) Nausea levofloxacin [From LEVAQUIN] Allergy (Intermediate, Verified 08/25/23 14:09) GI UPSET/ WEIGHT LOSS, anaphylaxis sulfamethoxazole [From Bactrim] Allergy (Intermediate, Verified 08/25/23 14:09) rash trimethoprim [From Bactrim] Allergy (Intermediate, Verified 08/25/23 14:09) rash ibuprofen Allergy (Mild, Verified 08/25/23 14:09) GI DISTRESS Medication List - Last Reconciled 08/25/23 by Cherrie Parker RN acetaminophen 500 mg PO Q6H PRN albuterol sulfate 90 mcg/actuation 1 inh PO Q4H PRN albuterol sulfate 90 mcg/actuation 2 puffs PO Q6H PRN albuterol sulfate 2.5 mg (3 mL) continuous nebulization QID PRN aspirin 81 mg PO DAILY atorvastatin 20 mg PO DAILY azithromycin 250 mg PO 3XW 28 days calcium citrate 500 mg (2 x 250 mg calcium) PO BID 90 days carvedilol 3.125 mg PO BID cholecalciferol (vitamin D3) 100 mcg (2 x 50 mcg (2,000 unit)) PO DAILY 90 days diltiazem HCl 120 mg PO BID doxycycline hyclate 100 mg PO BID [ENSURE / BOOST PO DAILY] [id number] 200-62.5-25 mcg (Trelegy Ellipta) 1 ea PO DAILY nebulizers As directed oxycodone 10 mg PO Q6H oxycodone ER (OxyContin) 10 mg PO BID Oxygen Home Use As directed [probiotics PO] sertraline 25 mg PO DAILY sodium chloride 7% 4 mL inhalation BID theophylline ER 400 mg PO DAILY warfarin 2.5 mg See Protocol PO DAILY Nursing Note INR 1.2 out of therapeutic range Medications and supplements reviewed- he may take a baby aspirin today because he is out of lovenox - if no further hematuria Patient status: s/p renal stone procedure monday, did have gross hematuria and held warfarin mon and resumed again / He is currently taking Doxcycline - he did not take it x 2 days due to GI upset, and resuming today- can raise the INR he is to start AZO for his bladder - which contains cranberry - can raise the INR Medications or supplements: no other changes Diet: fair - able to tolerate soup Denies any signs and symptoms of bleeding or clotting or unusual bruising Bleeding, bruising, clotting discussed Nutritional guidance given: avoid greens x 3 days Dose: resume usual dose 1.25mg x 1 day/ 2.5mg x 6 days F/U INR Date : 08/28/23?? Patient verbalizing understanding of instructions given. 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
== END 2023-08-25 14:55 | disposition home or self-care (01) ==
LOC: HO.ACS 14:03
PROVIDERS: PCP Hospitalist; Visit Provider Internal Medicine
DX: Z79.01 Long term (current) use of anticoagulants (principal)

== ENCOUNTER → 2023-08-25 14:03 | Outpatient (BNVA) | payer MEDICARE, SELFPAY | PROVIDERS: PCP Hospitalist; Visit Provider Internal Medicine | DX: Z86.73 Personal history of transient ischemic attack (TIA), and cerebral infarction without residual deficits (principal); Z51.81 Encounter for therapeutic drug level monitoring; Z79.01 Long term (current) use of anticoagulants | CPT/HCPCS: 85610; 99211 ==

== ENCOUNTER 2023-08-28 13:57 | Outpatient (AMB) | payer MEDICARE, SELFPAY ==
--- NOTE | 2023-08-28 14:46 | MHC.OFFVISCO ---
Intake Intake Visit Reasons: Anticoagulation Allergies bupropion [From Wellbutrin] Allergy (Intermediate, Verified 08/25/23 14:09) Nausea levofloxacin [From LEVAQUIN] Allergy (Intermediate, Verified 08/25/23 14:09) GI UPSET/ WEIGHT LOSS, anaphylaxis sulfamethoxazole [From Bactrim] Allergy (Intermediate, Verified 08/25/23 14:09) rash trimethoprim [From Bactrim] Allergy (Intermediate, Verified 08/25/23 14:09) rash ibuprofen Allergy (Mild, Verified 08/25/23 14:09) GI DISTRESS Nursing Note INR 1.7 out of therapeutic range Medications and supplements reviewed Patient status: HAD RENAL STENT REMOVED TODAY - SLIGHT HEMATURIA - CLEARING NOW Medications or supplements: HAS NOT RESUMED DOXYCYLINE DUE TO GI UPSET - WILL IN A FEW DAYS Diet: FAIR- HAS 1 ENSURE/ BOOST / DAY Denies any signs and symptoms of bleeding or clotting or unusual bruising Bleeding, bruising, clotting discussed Nutritional guidance given: REVIEW FOOD LIST, REMEMBER BOOST/ENSURE COUNTS A GREEN Dose: 3.75 (BOOST GENTLY STENT REMOVED TODAY HX OF HEMATURIA) 2.5MG DAILY, ON AZO THAT CAN RAISE THE INR, TO RESUME DOXYCYCLINE SOON F/U INR Date : 09/05/23 - PT WANTED A LONGER TIME IN BETWEEN APPTS BUT EXPLAINED POTENTIAL STROKE RISK WHEN INR LOW TOO LONG. ?? Patient verbalizing understanding of instructions given. 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
[2023-08-29 08:31] LABS: Prothrombin Time Whole Bld POC 19.9 sec (11.1-13.5); ~PT, ~INR - Anti Coag Clinic 1.7 (0.9-1.1)
== END 2023-08-28 14:55 | disposition home or self-care (01) ==
LOC: HO.ACS 13:57
PROVIDERS: PCP Hospitalist; Visit Provider Internal Medicine
DX: Z79.01 Long term (current) use of anticoagulants (principal)

== ENCOUNTER → 2023-08-28 13:57 | Outpatient (BNVA) | payer MEDICARE, SELFPAY | PROVIDERS: PCP Hospitalist; Visit Provider Internal Medicine | DX: Z86.73 Personal history of transient ischemic attack (TIA), and cerebral infarction without residual deficits (principal); Z51.81 Encounter for therapeutic drug level monitoring; Z79.01 Long term (current) use of anticoagulants | CPT/HCPCS: 85610; 99211 ==

== ENCOUNTER 2023-09-07 13:04 | Outpatient (AMB) | payer MEDICARE, SELFPAY ==
[2023-09-07 13:15] LABS: Prothrombin Time Whole Bld POC 18.8 sec (11.1-13.5); ~PT, ~INR - Anti Coag Clinic 1.6 (0.9-1.1)
--- NOTE | 2023-09-07 13:28 | MHC.OFFVISCO ---
Intake Intake Visit Reasons: Anticoagulation Allergies bupropion [From Wellbutrin] Allergy (Intermediate, Verified 09/07/23 13:09) Nausea levofloxacin [From LEVAQUIN] Allergy (Intermediate, Verified 09/07/23 13:09) GI UPSET/ WEIGHT LOSS, anaphylaxis sulfamethoxazole [From Bactrim] Allergy (Intermediate, Verified 09/07/23 13:09) rash trimethoprim [From Bactrim] Allergy (Intermediate, Verified 09/07/23 13:09) rash ibuprofen Allergy (Mild, Verified 09/07/23 13:09) GI DISTRESS Medication List - Last Reconciled 09/07/23 by Mira Antonio RN acetaminophen 500 mg PO Q6H PRN albuterol sulfate 90 mcg/actuation 1 inh PO Q4H PRN albuterol sulfate 90 mcg/actuation 2 puffs PO Q6H PRN albuterol sulfate 2.5 mg (3 mL) continuous nebulization QID PRN aspirin 81 mg PO DAILY atorvastatin 20 mg PO DAILY azithromycin 250 mg PO 3XW 28 days calcium citrate 500 mg (2 x 250 mg calcium) PO BID 90 days carvedilol 3.125 mg PO BID cholecalciferol (vitamin D3) 100 mcg (2 x 50 mcg (2,000 unit)) PO DAILY 90 days cranberry fruit concentrate (Azo Cranberry) PO diltiazem HCl 120 mg PO BID doxycycline hyclate 100 mg PO BID [ENSURE / BOOST PO DAILY] [id number] 200-62.5-25 mcg (Trelegy Ellipta) 1 ea PO DAILY nebulizers As directed oxycodone 10 mg PO Q6H oxycodone ER (OxyContin) 10 mg PO BID Oxygen Home Use As directed [probiotics PO] sertraline 25 mg PO DAILY sodium chloride 7% 4 mL inhalation BID theophylline ER 400 mg PO DAILY warfarin 2.5 mg See Protocol PO DAILY Nursing Note Amb to [facility] , feeling better now that the stone is gone S/P stone and stent removal 5/6 Medications and supplements reviewed, remains on Doxycycline 100mg BID although sts he sometimes only takes it once a day due to GI upset, Azithromycin on hold No other changes in health, diet, medications, or supplements, Denies any signs and symptoms of bleeding or bruising or clotting. Sts no blood in urine since procedure INR: 1.6 below therapeutic range S/S clotting, stroke discussed re:low INR Nutritional guidance given to eat usual diet as pt is not a big green eater and he is having boost 2-3 a week Dose: increase today to 3.75mg and will increase weekly to 3.75mg x 2 days and 2.5mg x 5 days (previous dosing was 3.75mg x 3 days and 2.5mg x 4 days) F/U INR: recommended 1 week however pt verbalizes that he has had enough visits here and with other providers and just want a break agreed to 09/18 Patient verbalizes understanding of instructions given Anti-Coag Initial Assessment Social Hx Patient Tobacco Use Status: Former Tobacco user Tobacco use type: Cigarette Alcohol intake frequency: does not drink Coding Level of Care Code Est Patient Level 2 Diagnoses Current use of anticoagulant therapy Z79.01 Time Spent (min) 30 Assessment & Plan Assessment & Plan (1) Current use of anticoagulant therapy: Code(s): 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
== END 2023-09-07 13:44 | disposition home or self-care (01) ==
LOC: HO.ACS 13:04
PROVIDERS: PCP Hospitalist; Visit Provider Internal Medicine
DX: Z79.01 Long term (current) use of anticoagulants (principal)

== ENCOUNTER → 2023-09-07 13:04 | Outpatient (BNVA) | payer MEDICARE, SELFPAY | PROVIDERS: PCP Hospitalist; Visit Provider Internal Medicine | DX: Z86.73 Personal history of transient ischemic attack (TIA), and cerebral infarction without residual deficits (principal); Z51.81 Encounter for therapeutic drug level monitoring; Z79.01 Long term (current) use of anticoagulants | CPT/HCPCS: 85610; 99212 ==

== ENCOUNTER 2023-09-19 13:49 | Outpatient (AMB) | payer MEDICARE, SELFPAY ==
[2023-09-19 13:57] LABS: Prothrombin Time Whole Bld POC 28.1 sec (11.1-13.5); ~PT, ~INR - Anti Coag Clinic 2.3 (0.9-1.1)
--- NOTE | 2023-09-19 14:02 | MHC.OFFVISCO ---
Intake Intake Visit Reasons: Anticoagulation Allergies bupropion [From Wellbutrin] Allergy (Intermediate, Verified 09/19/23 13:51) Nausea levofloxacin [From LEVAQUIN] Allergy (Intermediate, Verified 09/19/23 13:51) GI UPSET/ WEIGHT LOSS, anaphylaxis sulfamethoxazole [From Bactrim] Allergy (Intermediate, Verified 09/19/23 13:51) rash trimethoprim [From Bactrim] Allergy (Intermediate, Verified 09/19/23 13:51) rash ibuprofen Allergy (Mild, Verified 09/19/23 13:51) GI DISTRESS Medication List - Last Reconciled 09/19/23 by Mira Antonio RN acetaminophen 500 mg PO Q6H PRN albuterol sulfate 90 mcg/actuation 1 inh PO Q4H PRN albuterol sulfate 90 mcg/actuation 2 puffs PO Q6H PRN albuterol sulfate 2.5 mg (3 mL) continuous nebulization QID PRN aspirin 81 mg PO DAILY atorvastatin 20 mg PO DAILY azithromycin 250 mg PO 3XW 28 days calcium citrate 500 mg (2 x 250 mg calcium) PO BID 90 days carvedilol 3.125 mg PO BID cholecalciferol (vitamin D3) 100 mcg (2 x 50 mcg (2,000 unit)) PO DAILY 90 days cranberry fruit concentrate (Azo Cranberry) PO diltiazem HCl 120 mg PO BID doxycycline hyclate 100 mg PO BID [ENSURE / BOOST PO DAILY] [id number] 200-62.5-25 mcg (Trelegy Ellipta) 1 ea PO DAILY nebulizers As directed oxycodone 10 mg PO Q6H oxycodone ER (OxyContin) 10 mg PO BID Oxygen Home Use As directed [probiotics PO] sertraline 25 mg PO DAILY sodium chloride 7% 4 mL inhalation BID theophylline ER 400 mg PO DAILY warfarin 2.5 mg See Protocol PO DAILY Nursing Note Amb to [facility] feeling well, has O2 but not using O2 at present sts he has an appointment with electric detector 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 INR 2.3 in therapeutic range Nutritional guidance given balance greens and reds in diet, be consistent Dose: continue new dosing 3.75mg x 2 days and 2.5mg x 5 days, pt encouraged to keep dosing days as written F/U INR: 4 weeks Patient verbalizes understanding of instructions given Anti-Coag Initial Assessment Social Hx Patient Tobacco Use Status: Former Tobacco user Tobacco use type: Cigarette Alcohol intake frequency: does not drink Coding Level of Care Code Est Patient Level 1 Diagnoses Current use of anticoagulant therapy Z79.01 Time Spent (min) 15 Assessment & Plan Assessment & Plan (1) Current use of anticoagulant therapy: Code(s): 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
== END 2023-09-19 14:14 | disposition home or self-care (01) ==
LOC: HO.ACS 13:49
PROVIDERS: PCP Hospitalist; Visit Provider Internal Medicine
DX: Z79.01 Long term (current) use of anticoagulants (principal)

== ENCOUNTER → 2023-09-19 13:49 | Outpatient (BNVA) | payer MEDICARE, SELFPAY | PROVIDERS: PCP Hospitalist; Visit Provider Internal Medicine | DX: Z86.73 Personal history of transient ischemic attack (TIA), and cerebral infarction without residual deficits (principal); Z79.01 Long term (current) use of anticoagulants; Z51.81 Encounter for therapeutic drug level monitoring | CPT/HCPCS: 85610; 99211 ==

== ENCOUNTER 2023-09-29 13:08 | Outpatient (AMB) | payer MEDICARE, SELFPAY ==
--- NOTE | 2023-09-29 13:15 | MHC.OFFVIS ---
Vital Signs 09/29/23 13:16 Height 5 ft 6 in Weight 95 lb BMI 15.3 Pulse 78 Pulse Source Pulse Oximeter Pulse Oximetry (%) 96 Oxygen Delivery Method Room Air Intake Visit Reasons: Bronchiectasis Psychiatric Social Worker Required: No Allergies bupropion [From Wellbutrin] Allergy (Intermediate, Verified 09/29/23 13:18) Nausea levofloxacin [From LEVAQUIN] Allergy (Intermediate, Verified 09/29/23 13:18) GI UPSET/ WEIGHT LOSS, anaphylaxis sulfamethoxazole [From Bactrim] Allergy (Intermediate, Verified 09/29/23 13:18) rash trimethoprim [From Bactrim] Allergy (Intermediate, Verified 09/29/23 13:18) rash ibuprofen Allergy (Mild, Verified 09/29/23 13:18) GI DISTRESS HPI Comments Details: The patient is a 73-year-old gentleman with a significant pulmonary history. the patient does have a history of lung cancer diagnosed back in 2019 status post right upper lobectomy. Patient did not receive any chemo or radiation. He also carries diagnosis of COPD. He also has pulmonary nodules and also evidence of interstitial lung disease. His last CT scan of the chest was done back in August 2021 at [facility]. It appears that the patient has evidence of interstitial lung disease with underlying pulmonary fibrosis. There is also evidence of bronchiectasis with extensive mucus plugging. He has pulmonary nodules. Some of the areas of pulmonary fibrosis appear to be coalescing and difficult to know if there is any recurrent malignancy. The radiologist recommended a close follow-up. The patient continues to have a worsening cough productive in nature. Yellowish to green sputum. We were able to perform a nebulized treatment with Xopenex and hypertonic saline and did send sputum for culture for both AFB and Gram staining culture. The patient has had a bronchoscopy in the past many years ago performed by a local thoracic surgeon and he tolerated that well. At this point he does not need a bronchoscopy but we have to work on his chest physical therapy. The patient does have a percussion valve already prescribed by his previous environmental health inspector. At this time will increase his chest physical therapy to try to remove mucus plugging in the patient will need a repeat CT scan. In addition to that the patient has been getting samples of Trelegy which appears to be very effective in beneficial for him. However, is also very expensive and he is currently in the donut hole. I will send him a generic Wixela with hope that this will be less of a financial burden. 06/01/2023 the patient is here for a pulmonary follow-up visit. He is having hard time after having COVID. Had called in and we had sent him a prescription for Paxlovid but the patient was reluctant at that time. Afterwards he started developing worsening cough chest congestion shortness of breath. He has also had some weight loss. He has not been feeling well. The patient also started noticing some blood in the urine. He talked to his primary care doctor who gave him amoxicillin and he did have improvement. However, was only for 5 days and then the symptoms reoccurred. He did come in for a INR checking his INR levels have been steady but because of the hematuria the nursing staff became concerned. He will call them tomorrow. In the meantime he is feels more chest congestion. He has been using doxycycline but has not been helpful. Feels like she needs to go back on amoxicillin. He tolerated that well. [facility] his ongoing symptoms will go ahead and start him on Augmentin. He also also having some wheezing on exam is also him some prednisone. The patient should also have blood work, urine studies and also a chest x-ray before going home. 06/29/2023 the patient is here for a pulmonary follow-up visit. He continues to cough she is congestion. Expectorate. He has multiple bugs that have been growing throughout the years. Most recently he grew stenotrophomonas. He was placed on doxycycline did get nauseous. I did give him some advice on how to take it appropriately specially since his the only medication he can take 4. In the meantime he is chest congestion significant moderate severity. With the worsening cough. Therefore we talked about perform any clean out bronchoscopy which is reasonable at this time. Will plan for bronchoscopy and then will follow-up afterwards. He continues use all his respiratory therapy which is partially helpful. 07/27/2023 the patient is here for a pulmonary follow-up visit. He is status post bronchoscopy. The patient had significant amount of purulent secretions throughout which was suctioned. The cultures were positive again for stenotrophomonas in addition to Acinetobacter. Is to resistant organisms difficult to treat. He is also on Coumadin make it difficult for him to tolerate antibiotics. Will go ahead and start him on Bactrim to see if we can treat both organisms although we still waiting for the sensitivities the stenotrophomonas. Will trying to adjust the Coumadin to make sure that he can tolerate the long course of antibiotics. He does not feel well today. He does have some chest tightness after the bronchoscopy. Therefore given a short course of prednisone. Will go ahead and request blood work at this time. 09/29/2023 the patient is here for a pulmonary follow-up visit. He continues to do fairly well. 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 The twice a day dosing is hard for him because of GI upset. He is going to decrease it down to once a day. Also can try some simethicone as needed. His cough congestion has improved. He is also dealing with atrial fibrillation. But hopefully we can get him back to pulmonary rehab so he can start exercising. He needs to also increase his caloric intake to make sure that he gained some weight. Continues use the oxygen with good effect. Will go ahead and decrease his Trelegy down to 100 from 200 because of his concerns of high inhaled steroids. We also did review his last CT scan of the chest that was done at [facility] in 2021. Patient did have pulmonary nodules. Based on his ongoing symptoms in his weight loss will go ahead and request a CT scan of the chest prior to the next visit. [facility] Medical History (Updated 08/15/23 @ 20:18 by Shahana Enrique NP) Bronchiectasis Pulmonary fibrosis Pulmonary nodules Bronchiectasis History of MRSA infection Arthritis Back pain Hx of spinal stenosis Lab test negative for COVID-19 virus Arrhythmia Hx of Clostridium difficile infection Hx of cancer of lung On anticoagulant therapy Elevated cholesterol Hx of ulcerative colitis CVA (cerebral vascular accident) COPD (chronic obstructive pulmonary disease) AAA (abdominal aortic aneurysm) Vitamin D deficiency Hypogonadotropic hypogonadism Osteoporosis Surgical History H/O colonoscopy History of bowel resection History of bronchoscopy History of lobectomy of lung Hx of cervical discectomy Family History Father AAA (abdominal aortic aneurysm) Mother No problems noted. Social History (Updated 06/21/23 @ 09:40 by Leila Sinclair LPN) Are you a primary insurance healthcare consultant to a significant other at home: No Do you presently have visiting nurse or other home services: No Patient Tobacco Use Status: Former Tobacco user Tobacco use type: Cigarette Years Smoked: 54 Years Substance Use Type: Marijuana Review of Systems Const Reports fatigue and Denies fever(s) Eyes Denies eye discharge ENT Denies change in voice Card Denies chest pain and Reports dyspnea on exertion Resp Reports chest congestion, Reports cough, Denies hemoptysis, Reports dyspnea on exertion and Reports wheezing GI Reports no additional complaints Reports as per HPI and Reports hematuria Musc Reports no additional complaints Skin/Breast Denies rash Neuro Reports no additional complaints Endo Reports no additional complaints and Reports fatigue Ortiz/Lymph Denies easy bleeding, Denies easy bruising and Denies lymphadenopathy Aller/Immun Reports wheezing Physical Exam Vital Signs: Last Vital Signs Pulse 78 09/29/23 13:16 Pulse Ox 96 09/29/23 13:16 Oxygen Delivery Method Room Air 09/29/23 13:16 BMI result Body Mass Index 15.3 Const General: comfortable HEENT Head: Yes normal to inspection Eyes General: appearance normal, both eyes and all related structures Neck Neck: Yes supple Chest Chest palpation & inspection: normal inspection of the chest Resp Auscultation: no crackles, no rales, rhonchi and diminished lung sounds Cardio Rate: regular rate Rhythm: regular rhythm Heart sounds: S1 normal heart sound present and S2 normal heart sound present Extrem General: Yes no clubbing, cyanosis or edema Assessment & Plan Assessment & Plan (1) Bronchiectasis: Code(s): J47.9 - Bronchiectasis, uncomplicated Category: Medical Qualifiers: Bronchiectasis type: uncomplicated Qualified Code(s): J47.9 - Bronchiectasis, uncomplicated (2) COPD (chronic obstructive pulmonary disease): Code(s): J44.9 - Chronic obstructive pulmonary disease, unspecified Category: Medical Qualifiers: COPD type: COPD with acute exacerbation Qualified Code(s): J44.1 - Chronic obstructive pulmonary disease with (acute) exacerbation (3) Bronchiectasis: Code(s): J47.9 - Bronchiectasis, uncomplicated Category: Medical Qualifiers: Bronchiectasis type: uncomplicated Qualified Code(s): J47.9 - Bronchiectasis, uncomplicated (4) Dyspnea: Code(s): R06.00 - Dyspnea, unspecified Category: Medical Qualifiers: Dyspnea type: dyspnea on exertion Qualified Code(s): R06.09 - Other forms of dyspnea (5) Pulmonary fibrosis: Code(s): J84.10 - Pulmonary fibrosis, unspecified Category: Medical (6) Pulmonary nodules: Code(s): R91.8 - Other nonspecific abnormal finding of lung field Category: Medical (7) Hx of cancer of lung: Comment: with right upper [id number] not need chemotherapy or radiation Code(s): Z85.118 - Personal history of other malignant neoplasm of bronchus and lung Category: Medical Plan decrease Doxycycline to daily decrease trelegy 200mcg->100mcg daily nebulized therapy with albuterol followed by hypertonic saline followed by Aerobika valve twice a day hypertonic saline 3% to be started for his chest physical therapy restart Pulmonary rehab Mucinex as needed CT chest follow-up in 3 months Orders: Orders CT chest wo IV con 2 Months J47.9 - Bronchiectasis, uncomplicated, J84.10 - Pulmonary fibrosis, unspecified, R91.8 - Other nonspecific abnormal finding of lung field Pulmonary Rehab 09/29/23 J44.1 - Chronic obstructive pulmonary disease with (acute) exacerbation Medications: New jljwnixtamj-kwqjnqwrr-jueuzwes 100-62.5-25 mcg (Trelegy Ellipta) 1 inh inhalation DAILY 60 ea 11RF 30 days J44.9 - Chronic obstructive pulmonary disease, unspecified simethicone (Gas Relief (simethicone)) 160 mg (2 x 80 mg) PO TID PRN 60 tabs 0RF abdominal distention 30 days Coding Level of Care Code Est Pt Level 4 (94684) Diagnoses Bronchiectasis without complication J47.9 Bronchiectasis type: uncomplicated Chronic obstructive pulmonary disease with acute exacerbation J44.1 COPD type: COPD with acute exacerbation Dyspnea on exertion R06.09 Dyspnea type: dyspnea on exertion Pulmonary fibrosis J84.10 Pulmonary nodules R91.8 Hx of cancer of lung Z85.118 Time Spent (min) 17
[2023-09-29 13:16] VITALS: PULSE 78; O2SAT 96; BMI 15.3
== END 2023-09-29 13:37 | disposition home or self-care (01) ==
PROVIDERS: PCP Hospitalist; Visit Provider Hospitalist
DX: J47.9 Bronchiectasis, uncomplicated (principal); J44.1 Chronic obstructive pulmonary disease with (acute) exacerbation; R06.09 Other forms of dyspnea; J84.10 Pulmonary fibrosis, unspecified; R91.8 Other nonspecific abnormal finding of lung field; Z85.118 Personal history of other malignant neoplasm of bronchus and lung
CPT/HCPCS: 99214

== ENCOUNTER → 2023-09-29 13:08 | Outpatient (BNVA) | payer MEDICARE, SELFPAY | PROVIDERS: PCP Hospitalist; Visit Provider Hospitalist | DX: J47.9 Bronchiectasis, uncomplicated (principal); J44.1 Chronic obstructive pulmonary disease with (acute) exacerbation; J84.10 Pulmonary fibrosis, unspecified; R91.8 Other nonspecific abnormal finding of lung field; R06.09 Other forms of dyspnea; Z85.118 Personal history of other malignant neoplasm of bronchus and lung | CPT/HCPCS: 99212 ==

== ENCOUNTER 2023-10-17 13:03 | Outpatient (AMB) | payer MEDICARE, SELFPAY ==
[2023-10-17 13:15] LABS: Prothrombin Time Whole Bld POC 22.5 sec (11.1-13.5); ~PT, ~INR - Anti Coag Clinic 1.9 (0.9-1.1)
--- NOTE | 2023-10-17 13:24 | MHC.OFFVISCO ---
Intake Intake Visit Reasons: Anticoagulation Allergies bupropion [From Wellbutrin] Allergy (Intermediate, Verified 10/17/23 13:10) Nausea levofloxacin [From LEVAQUIN] Allergy (Intermediate, Verified 10/17/23 13:10) GI UPSET/ WEIGHT LOSS, anaphylaxis sulfamethoxazole [From Bactrim] Allergy (Intermediate, Verified 10/17/23 13:10) rash trimethoprim [From Bactrim] Allergy (Intermediate, Verified 10/17/23 13:10) rash ibuprofen Allergy (Mild, Verified 10/17/23 13:10) GI DISTRESS Medication List - Last Reconciled 10/17/23 by Mira Hurt, BLUE acetaminophen 500 mg PO Q6H PRN albuterol sulfate 90 mcg/actuation 1 inh PO Q4H PRN albuterol sulfate 90 mcg/actuation 2 puffs PO Q6H PRN albuterol sulfate 2.5 mg (3 mL) continuous nebulization QID PRN aspirin 81 mg PO DAILY atorvastatin 20 mg PO DAILY calcium citrate 500 mg (2 x 250 mg calcium) PO BID 90 days carvedilol 3.125 mg PO BID cholecalciferol (vitamin D3) 100 mcg (2 x 50 mcg (2,000 unit)) PO DAILY 90 days cranberry fruit concentrate (Azo Cranberry) PO diltiazem HCl 120 mg PO BID doxycycline hyclate 100 mg PO BID enoxaparin mg subcut [ENSURE / BOOST PO DAILY] ywhuldsodcs-joxhaokzb-bxuqcmgz 100-62.5-25 mcg (Trelegy Ellipta) 1 inh inhalation DAILY 30 days ypmipqsltpk-jggcszmls-qpikrqos 200-62.5-25 mcg (Trelegy Ellipta) 1 ea PO DAILY nebulizers As directed oxycodone 10 mg PO Q6H oxycodone ER (OxyContin) 10 mg PO BID Oxygen Home Use As directed [probiotics PO] sertraline 25 mg PO DAILY simethicone (Gas Relief (simethicone)) 160 mg (2 x 80 mg) PO TID PRN 30 days sodium chloride 7% 4 mL inhalation BID theophylline ER 400 mg PO DAILY warfarin 2.5 mg See Protocol PO DAILY Nursing Note INR: 1.9 out of therapeutic range of 2-3 Medications and supplements reviewed No changes in health, diet, medications, or supplements, Denies any signs and symptoms of bleeding or bruising or clotting. Bleeding, bruising, clotting discussed Nutritional guidance given to avoid greens today Dose: increase today's dose to 3.75mg (2.5) then resume usual dose of 3.75mg X 2 days and 2.5mg X 5 days F/U INR: 3 weeks Patient verbalizes understanding of instructions given Anti-Coag Initial Assessment Social Hx Patient Tobacco Use Status: Former Tobacco user Tobacco use type: Cigarette Alcohol intake frequency: does not drink Coding Level of Care Code Est Patient Level 1 Diagnoses Current use of anticoagulant therapy Z79.01 Assessment & Plan Assessment & Plan (1) Current use of anticoagulant therapy: Code(s): Z79.01 - terminal operator (current) use of 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
== END 2023-10-17 13:27 | disposition home or self-care (01) ==
LOC: HO.ACS 13:03
PROVIDERS: PCP Hospitalist; Visit Provider Internal Medicine
DX: Z79.01 Long term (current) use of anticoagulants (principal)

== ENCOUNTER → 2023-10-17 13:03 | Outpatient (BNVA) | payer MEDICARE, SELFPAY | PROVIDERS: PCP Hospitalist; Visit Provider Internal Medicine | DX: Z86.73 Personal history of transient ischemic attack (TIA), and cerebral infarction without residual deficits (principal); Z79.01 Long term (current) use of anticoagulants; Z51.81 Encounter for therapeutic drug level monitoring | CPT/HCPCS: 85610; 99211 ==

== ENCOUNTER 2023-11-07 13:03 | Outpatient (AMB) | payer MEDICARE, SELFPAY ==
[2023-11-07 13:17] LABS: Prothrombin Time Whole Bld POC 26.5 sec (11.1-13.5); ~PT, ~INR - Anti Coag Clinic 2.2 (0.9-1.1)
--- NOTE | 2023-11-07 13:21 | MHC.OFFVISCO ---
Intake Intake Visit Reasons: Anticoagulation Allergies bupropion [From Wellbutrin] Allergy (Intermediate, Verified 11/07/23 13:08) Nausea levofloxacin [From LEVAQUIN] Allergy (Intermediate, Verified 11/07/23 13:08) GI UPSET/ WEIGHT LOSS, anaphylaxis sulfamethoxazole [From Bactrim] Allergy (Intermediate, Verified 11/07/23 13:08) rash trimethoprim [From Bactrim] Allergy (Intermediate, Verified 11/07/23 13:08) rash ibuprofen Allergy (Mild, Verified 11/07/23 13:08) GI DISTRESS Medication List - Last Reconciled 11/07/23 by Cherrie Parker RN acetaminophen 500 mg PO Q6H PRN albuterol sulfate 90 mcg/actuation 1 inh PO Q4H PRN albuterol sulfate 90 mcg/actuation 2 puffs PO Q6H PRN albuterol sulfate 2.5 mg (3 mL) continuous nebulization QID PRN aspirin 81 mg PO DAILY atorvastatin 20 mg PO DAILY calcium citrate 500 mg (2 x 250 mg calcium) PO BID 90 days carvedilol 3.125 mg PO BID cholecalciferol (vitamin D3) 100 mcg (2 x 50 mcg (2,000 unit)) PO DAILY 90 days cranberry fruit concentrate (Azo Cranberry) PO diltiazem HCl 120 mg PO BID doxycycline hyclate 100 mg PO Q24H enoxaparin mg See Protocol subcut [ENSURE / BOOST PO DAILY] vumdriykftf-owvfkfkeh-zurunvma 100-62.5-25 mcg (Trelegy Ellipta) 1 inh inhalation DAILY 30 days dsmfmyrwcxy-qcurzcuhq-ucwgtnyj 200-62.5-25 mcg (Trelegy Ellipta) 1 ea PO DAILY nebulizers As directed oxycodone 10 mg PO Q6H oxycodone ER (OxyContin) 10 mg PO BID Oxygen Home Use As directed [probiotics PO] sertraline 25 mg PO DAILY simethicone (Gas Relief (simethicone)) 160 mg (2 x 80 mg) PO TID PRN 30 days sodium chloride 7% 4 mL inhalation BID theophylline ER 400 mg PO DAILY warfarin 2.5 mg See Protocol PO DAILY Nursing Note INR: 2.2 in therapeutic range Medications and supplements reviewed- DOXYCLINE DECREASED TO 100MG PO DAILY DUE TO GI UPSET No changes in health, diet, medications, or supplements, Denies any signs and symptoms of bleeding or bruising or clotting. Bleeding, bruising, clotting discussed Nutritional guidance given Dose: 3.75MG X 2 DAYS/ 2.5MG X 5 DAYS F/U INR: 4 WEEKS Patient verbalizes understanding of instructions given Anti-Coag Initial Assessment Social Hx Patient Tobacco Use Status: Former Tobacco user Tobacco use type: Cigarette Alcohol intake frequency: does not drink Coding Level of Care Code Est Patient Level 1 Diagnoses Current use of anticoagulant therapy Z79.01 Results AMB INR Fingerstick AMB INR Fingerstick 2.2 Last Edit by Cherrie Parker RN on 11/07/23 13:20 MANUAL ENTRY Assessment & Plan Assessment & Plan (1) Current use of anticoagulant therapy: Code(s): Z79.01 - extrusion die 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
== END 2023-11-07 13:25 | disposition home or self-care (01) ==
LOC: HO.ACS 13:03
PROVIDERS: PCP Hospitalist; Visit Provider Internal Medicine
DX: Z79.01 Long term (current) use of anticoagulants (principal)

== ENCOUNTER → 2023-11-07 13:03 | Outpatient (BNVA) | payer MEDICARE, SELFPAY | PROVIDERS: PCP Hospitalist; Visit Provider Internal Medicine | DX: Z86.73 Personal history of transient ischemic attack (TIA), and cerebral infarction without residual deficits (principal); Z79.01 Long term (current) use of anticoagulants; Z51.81 Encounter for therapeutic drug level monitoring | CPT/HCPCS: 85610; 99211 ==

== ENCOUNTER 2023-11-29 14:59 | Outpatient (REF) | payer MEDICARE, SELFPAY ==
--- NOTE | ~2023-11-29 | CT_ITS ---
EXAMINATION: CT CHEST WITHOUT CONTRAST CLINICAL INFORMATION: Pulmonary fibrosis and bronchiectasis. COMPARISON: Prior chest CT examinations, most recently 11/24/2021. TECHNIQUE: Multidetector volumetric CT imaging of the chest was done. Axial MIP volume rendering provided. Sagittal and coronal reformatted images were obtained. This CT examination was performed using dose optimization techniques as appropriate, variously including the following: *Automated exposure control *Adjustment of mA and/or kV according to patient size (this includes techniques or standardized protocols for targeted exams where dose is matched to indication/reason for exam; i.e. extremities or head) *Use of iterative reconstruction technique DLP: 87 mGy-cm FINDINGS: KNOCKDOWN MAN: There is hyperinflation. There is right base plate-like scar/subsegmental atelectasis. There is blunting of the bilateral lateral costophrenic angles. LUNGS: There is moderate centrilobular emphysematous change. There is bibasilar pleural and parenchymal fibrosis, right greater than left. There is associated traction bronchiectasis. There are small benign, calcified granulomas. No noncalcified nodule, mass, infiltrate or groundglass opacity is seen. There is mild generalized small airway thickening. The central airways appear patent. Within the dependent chaparro, there is a small nodular density which likely represents inspissated mucus. MEDIASTINUM: The thyroid is unremarkable. There is no thoracic aortic aneurysm. There are mild atherosclerotic calcifications of the great vessel origins and thoracic aorta. No mediastinal or hilar lymphadenopathy is seen. CORONARY ARTERY CALCIFICATION: Moderate. PLEURA: There is no pleural effusion. No pleural mass or thickening. AXILLA: No lymphadenopathy. There is a paucity of subcutaneous fat. UPPER ABDOMEN: Unremarkable. OSSEOUS STRUCTURES: There is multi-level thoracic spondylosis. There is a mild corduroy appearance of the T6 and T7 vertebra, suggesting hemangioma formation. There is a stable mild L1 upper endplate compression fracture. There are old, healed right rib fractures. No acute or aggressive osseous finding is noted. CT/CT chest wo IV con IMPRESSION: 1. There are moderate centrilobular emphysematous changes. 2. There is persistent bibasilar pleural and parenchymal fibrosis, with associated bronchiectatic change. 3. There are benign, calcified granulomas. 4. No noncalcified nodule, mass, infiltrate or groundglass opacity is seen. 5. There is mild generalized small airway thickening, which can be associated with acute bronchiolitis or reactive airways disease. There is a small amount of probable inspissated mucus within the posterior chaparro, for which continued attention on imaging follow-up is recommended. 6. There is multi-level thoracic spondylosis. No acute or aggressive osseous finding is seen. Fleischner guidelines were followed. Electronically signed by: Kelvin Clark MD 12/27/2023 01:29 PM EDT
== END 2023-11-29 15:00 | disposition home or self-care (01) ==
LOC: HO.CT 14:59
PROVIDERS: Visit Provider Hospitalist
DX: R91.8 Other nonspecific abnormal finding of lung field (principal); J84.10 Pulmonary fibrosis, unspecified; J47.9 Bronchiectasis, uncomplicated
CPT/HCPCS: 71250

== ENCOUNTER 2023-12-07 14:47 | Outpatient (AMB) | payer MEDICARE, SELFPAY ==
[2023-12-07 14:58] LABS: Prothrombin Time Whole Bld POC 27.9 sec (11.1-13.5); ~PT, ~INR - Anti Coag Clinic 2.3 (0.9-1.1)
--- NOTE | 2023-12-07 15:02 | MHC.OFFVISCO ---
Intake Intake Visit Reasons: Anticoagulation Allergies bupropion [From Wellbutrin] Allergy (Intermediate, Verified 12/07/23 14:53) Nausea levofloxacin [From LEVAQUIN] Allergy (Intermediate, Verified 12/07/23 14:53) GI UPSET/ WEIGHT LOSS, anaphylaxis sulfamethoxazole [From Bactrim] Allergy (Intermediate, Verified 12/07/23 14:53) rash trimethoprim [From Bactrim] Allergy (Intermediate, Verified 12/07/23 14:53) rash ibuprofen Allergy (Mild, Verified 12/07/23 14:53) GI DISTRESS Medication List - Last Reconciled 12/07/23 by Mira Hurt, BLUE acetaminophen 500 mg PO Q6H PRN albuterol sulfate 90 mcg/actuation 1 inh PO Q4H PRN albuterol sulfate 90 mcg/actuation 2 puffs PO Q6H PRN albuterol sulfate 2.5 mg (3 mL) continuous nebulization QID PRN aspirin 81 mg PO DAILY atorvastatin 20 mg PO DAILY calcium citrate 500 mg (2 x 250 mg calcium) PO BID 90 days carvedilol 3.125 mg PO BID cholecalciferol (vitamin D3) 100 mcg (2 x 50 mcg (2,000 unit)) PO DAILY 90 days cranberry fruit concentrate (Azo Cranberry) PO diltiazem HCl 120 mg PO BID doxycycline hyclate 100 mg PO Q24H [ENSURE / BOOST PO DAILY] nvasbmweyht-gpayucalz-ikzxmvrp 100-62.5-25 mcg (Trelegy Ellipta) 1 inh inhalation DAILY 30 days pihvyenirkn-egvtxehyr-rtaxgqqd 200-62.5-25 mcg (Trelegy Ellipta) 1 ea PO DAILY nebulizers As directed oxycodone 10 mg PO Q6H oxycodone ER (OxyContin) 10 mg PO BID Oxygen Home Use As directed [probiotics PO] sertraline 25 mg PO DAILY simethicone (Gas Relief (simethicone)) 160 mg (2 x 80 mg) PO TID PRN 30 days sodium chloride 7% 4 mL inhalation BID theophylline ER 400 mg PO DAILY warfarin 2.5 mg See Protocol PO DAILY Nursing Note Pt to ACS on supplemental O2 INR: 2.3 in therapeutic range of 2-3 Medications and supplements reviewed No changes in health, diet, medications, or supplements, Denies any signs and symptoms of bleeding or bruising or clotting. Bleeding, bruising, clotting discussed Nutritional guidance given to continue to balance reds and greens Dose: 2.5mg X5 days and 3.75mg X 2 days F/U INR: 4 weeks Patient verbalizes understanding of instructions given Anti-Coag Initial Assessment Social Hx Patient Tobacco Use Status: Former Tobacco user Tobacco use type: Cigarette Alcohol intake frequency: does not drink Coding Level of Care Code Est Patient Level 1 Diagnoses Current use of anticoagulant therapy Z79.01 Assessment & Plan Assessment & Plan (1) Current use of anticoagulant therapy: Code(s): Z79.01 - group home (current) use of 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
== END 2023-12-07 15:08 | disposition home or self-care (01) ==
LOC: HO.ACS 14:47
PROVIDERS: PCP Hospitalist; Visit Provider Internal Medicine
DX: Z79.01 Long term (current) use of anticoagulants (principal)

== ENCOUNTER → 2023-12-07 14:47 | Outpatient (BNVA) | payer MEDICARE, SELFPAY | PROVIDERS: PCP Hospitalist; Visit Provider Internal Medicine | DX: Z86.73 Personal history of transient ischemic attack (TIA), and cerebral infarction without residual deficits (principal); Z79.01 Long term (current) use of anticoagulants; Z51.81 Encounter for therapeutic drug level monitoring | CPT/HCPCS: 85610; 99211 ==

== ENCOUNTER 2024-01-04 13:45 | Outpatient (AMB) | payer MEDICARE, SELFPAY ==
--- NOTE | 2024-01-04 13:55 | A.OFFVIS_ITS ---
Vital Signs 01/04/24 13:56 Height 5 ft 6 in Weight 95 lb BMI 15.3 BP 134/70 Blood Pressure Location Lt brachial Position Sitting Pulse 73 Pulse Source Pulse Oximeter Pulse Oximetry (%) 98 Oxygen Delivery Method Room Air Intake Visit Reasons: Bronchiectasis Securities Attorney Required: No Allergies bupropion [From Wellbutrin] Allergy (Intermediate, Verified 01/04/24 13:58) Nausea levofloxacin [From LEVAQUIN] Allergy (Intermediate, Verified 01/04/24 13:58) GI UPSET/ WEIGHT LOSS, anaphylaxis sulfamethoxazole [From Bactrim] Allergy (Intermediate, Verified 01/04/24 13:58) rash trimethoprim [From Bactrim] Allergy (Intermediate, Verified 01/04/24 13:58) rash ibuprofen Allergy (Mild, Verified 01/04/24 13:58) GI DISTRESS HPI Comments Details: The patient is a 73-year-old gentleman with a significant pulmonary history. the patient does have a history of lung cancer diagnosed back in 2019 status post right upper lobectomy. Patient did not receive any chemo or radiation. He also carries diagnosis of COPD. He also has pulmonary nodules and also evidence of interstitial lung disease. His last CT scan of the chest was done back in August 2021 at [facility]. It appears that the patient has evidence of interstitial lung disease with underlying pulmonary fibrosis. There is also evidence of bronchiectasis with extensive mucus plugging. He has pulmonary nodules. Some of the areas of pulmonary fibrosis appear to be coalescing and difficult to know if there is any recurrent malignancy. The radiologist recommended a close follow-up. The patient continues to have a worsening cough productive in nature. Yellowish to green sputum. We were able to perform a nebulized treatment with Xopenex and hypertonic saline and did send sputum for culture for both AFB and Gram staining culture. The patient has had a bronchoscopy in the past many years ago performed by a local thoracic surgeon and he tolerated that well. At this point he does not need a bronchoscopy but we have to work on his chest physical therapy. The patient does have a percussion valve already prescribed by his previous zoning assistant. At this time will increase his chest physical therapy to try to remove mucus plugging in the patient will need a repeat CT scan. In addition to that the patient has been getting samples of Trelegy which appears to be very effective in beneficial for him. However, is also very expensive and he is currently in the donut hole. I will send him a generic Wixela with hope that this will be less of a financial burden. 06/01/2023 the patient is here for a pulmonary follow-up visit. He is having hard time after having COVID. Had called in and we had sent him a prescription for Paxlovid but the patient was reluctant at that time. Afterwards he started developing worsening cough chest congestion shortness of breath. He has also had some weight loss. He has not been feeling well. The patient also started noticing some blood in the urine. He talked to his primary care doctor who gave him amoxicillin and he did have improvement. However, was only for 5 days and then the symptoms reoccurred. He did come in for a INR checking his INR levels have been steady but because of the hematuria the nursing staff became concerned. He will call them tomorrow. In the meantime he is feels more chest congestion. He has been using doxycycline but has not been helpful. Feels like she needs to go back on amoxicillin. He tolerated that well. [facility] his ongoing symptoms will go ahead and start him on Augmentin. He also also having some wheezing on exam is also him some prednisone. The patient should also have blood work, urine studies and also a chest x-ray before going home. 06/29/2023 the patient is here for a pulmonary follow-up visit. He continues to cough she is congestion. Expectorate. He has multiple bugs that have been growing throughout the years. Most recently he grew stenotrophomonas. He was placed on doxycycline did get nauseous. I did give him some advice on how to take it appropriately specially since his the only medication he can take 4. In the meantime he is chest congestion significant moderate severity. With the worsening cough. Therefore we talked about perform any clean out bronchoscopy which is reasonable at this time. Will plan for bronchoscopy and then will follow-up afterwards. He continues use all his respiratory therapy which is partially helpful. 07/27/2023 the patient is here for a pulmonary follow-up visit. He is status post bronchoscopy. The patient had significant amount of purulent secretions throughout which was suctioned. The cultures were positive again for stenotrophomonas in addition to Acinetobacter. Is to resistant organisms difficult to treat. He is also on Coumadin make it difficult for him to tolerate antibiotics. Will go ahead and start him on Bactrim to see if we can treat both organisms although we still waiting for the sensitivities the stenotrophomonas. Will trying to adjust the Coumadin to make sure that he can tolerate the long course of antibiotics. He does not feel well today. He does have some chest tightness after the bronchoscopy. Therefore given a short course of prednisone. Will go ahead and request blood work at this time. 09/29/2023 the patient is here for a pulmonary follow-up visit. He continues to do fairly well. 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 The twice a day dosing is hard for him because of GI upset. He is going to decrease it down to once a day. Also can try some simethicone as needed. His cough congestion has improved. He is also dealing with atrial fibrillation. But hopefully we can get him back to pulmonary rehab so he can start exercising. He needs to also increase his caloric intake to make sure that he gained some weight. Continues use the oxygen with good effect. Will go ahead and decrease his Trelegy down to 100 from 200 because of his concerns of high inhaled steroids. We also did review his last CT scan of the chest that was done at [facility] back in 2021. Patient did have pulmonary nodules. Based on his ongoing symptoms in his weight loss will go ahead and request a CT scan of the chest prior to the next visit. 01/04/2024 the patient is here for a pulmonary follow-up visit. The patient overall has been doing better. He has been responding well to the doxycycline. Although sometimes hard to tolerate. Sometimes he does decreased down to 3 times a week which is very reasonable. The patient did have a CT scan of the chest that we did personally review. And appears that he has some chronic airway disease emphysematous changes and some degree of atelectasis and scarring. The patient does have the oxygen at home he does use it if he does get involved in increased exercise activity. He was supposed to start pulmonary rehabilitation but he had not started as of yet. I am hopeful that he calls and this situated with the quickly start building muscle strength and respiratory endurance. Will continue with chest PT as well. The patient will continue with current therapy and will follow-up sometime in the spring. If he has any issues prior to that he will call for an earlier assessment. [facility] Medical History (Updated 08/15/23 @ 20:18 by Shahana Enrique NP) Bronchiectasis Pulmonary fibrosis Pulmonary nodules Bronchiectasis History of MRSA infection Arthritis Back pain Hx of spinal stenosis Lab test negative for COVID-19 virus Arrhythmia Hx of Clostridium difficile infection Hx of cancer of lung On anticoagulant therapy Elevated cholesterol Hx of ulcerative colitis CVA (cerebral vascular accident) COPD (chronic obstructive pulmonary disease) AAA (abdominal aortic aneurysm) Vitamin D deficiency Hypogonadotropic hypogonadism Osteoporosis Surgical History H/O colonoscopy History of bowel resection History of bronchoscopy History of lobectomy of lung Hx of cervical discectomy Family History Father AAA (abdominal aortic aneurysm) Mother No problems noted. Social History (Updated 06/21/23 @ 09:40 by Leila Sinclair LPN) Are you a primary anesthesiologist and critical care to a significant other at home: No Do you presently have visiting nurse or other home services: No Patient Tobacco Use Status: Former Tobacco user Tobacco use type: Cigarette Years Smoked: 54 Years Substance Use Type: Marijuana Review of Systems Const Reports fatigue and Denies fever(s) Eyes Denies eye discharge ENT Denies change in voice Card Denies chest pain and Reports dyspnea on exertion Resp Reports chest congestion, Reports cough, Denies hemoptysis, Reports dyspnea on exertion and Reports wheezing GI Reports no additional complaints Reports as per HPI and Reports hematuria Musc Reports no additional complaints Skin/Breast Denies rash Neuro Reports no additional complaints Endo Reports no additional complaints and Reports fatigue Ortiz/Lymph Denies easy bleeding, Denies easy bruising and Denies lymphadenopathy Aller/Immun Reports wheezing Physical Exam Vital Signs: Last Vital Signs Pulse 73 01/04/24 13:56 BP 134/70 01/04/24 13:56 Pulse Ox 98 01/04/24 13:56 Oxygen Delivery Method Room Air 01/04/24 13:56 BMI result Body Mass Index 15.3 Const General: comfortable HEENT Head: Yes normal to inspection Eyes General: appearance normal, both eyes and all related structures Neck Neck: Yes supple Chest Chest palpation & inspection: normal inspection of the chest Resp Auscultation: no crackles, no rales, no rhonchi and diminished lung sounds Cardio Rate: regular rate Rhythm: regular rhythm Heart sounds: S1 normal heart sound present and S2 normal heart sound present Extrem General: Yes no clubbing, cyanosis or edema Assessment & Plan Assessment & Plan (1) Bronchiectasis: Code(s): J47.9 - Bronchiectasis, uncomplicated Category: Medical Qualifiers: Bronchiectasis type: uncomplicated Qualified Code(s): J47.9 - Bronchiectasis, uncomplicated (2) COPD (chronic obstructive pulmonary disease): Code(s): J44.9 - Chronic obstructive pulmonary disease, unspecified Category: Medical Qualifiers: COPD type: COPD with acute exacerbation Qualified Code(s): J44.1 - Chronic obstructive pulmonary disease with (acute) exacerbation (3) Dyspnea: Code(s): R06.00 - Dyspnea, unspecified Category: Medical Qualifiers: Dyspnea type: dyspnea on exertion Qualified Code(s): R06.09 - Other forms of dyspnea (4) Pulmonary fibrosis: Code(s): J84.10 - Pulmonary fibrosis, unspecified Category: Medical (5) Pulmonary nodules: Code(s): R91.8 - Other nonspecific abnormal finding of lung field Category: Medical (6) Hx of cancer of lung: Comment: with right upper [id number] not need chemotherapy or radiation Code(s): Z85.118 - Personal history of other malignant neoplasm of bronchus and lung Category: Medical Plan continue Doxycycline to daily Trelegy 100mcg daily nebulized therapy with albuterol followed by hypertonic saline followed by Aerobika valve twice a day hypertonic saline 3% to be started for his chest physical therapy needs to restart Pulmonary rehab Mucinex as needed follow-up in 3 months Medications: Refilled simethicone (Gas Relief (simethicone)) 160 mg (2 x 80 mg) PO TID PRN 90 tabs 6RF abdominal distention 30 days Coding Level of Care Code Est Pt Level 4 (74809) Complex EM visit Add On G2211 Diagnoses Bronchiectasis without complication J47.9 Bronchiectasis type: uncomplicated Chronic obstructive pulmonary disease with acute exacerbation J44.1 COPD type: COPD with acute exacerbation Dyspnea on exertion R06.09 Dyspnea type: dyspnea on exertion Pulmonary fibrosis J84.10 Pulmonary nodules R91.8 Hx of cancer of lung Z85.118 Time Spent (min) 17
[2024-01-04 13:56] VITALS: BP 134/70; PULSE 73; O2SAT 98; BMI 15.3
== END 2024-01-04 14:15 | disposition home or self-care (01) ==
PROVIDERS: PCP Hospitalist; Visit Provider Hospitalist
DX: J47.9 Bronchiectasis, uncomplicated (principal); J44.1 Chronic obstructive pulmonary disease with (acute) exacerbation; R06.09 Other forms of dyspnea; J84.10 Pulmonary fibrosis, unspecified; R91.8 Other nonspecific abnormal finding of lung field; Z85.118 Personal history of other malignant neoplasm of bronchus and lung
CPT/HCPCS: 99214; G2211

== ENCOUNTER → 2024-01-04 13:45 | Outpatient (BNVA) | payer MEDICARE, SELFPAY | PROVIDERS: PCP Hospitalist; Visit Provider Hospitalist | DX: J47.9 Bronchiectasis, uncomplicated (principal); J44.1 Chronic obstructive pulmonary disease with (acute) exacerbation; R06.09 Other forms of dyspnea; J84.10 Pulmonary fibrosis, unspecified; R91.8 Other nonspecific abnormal finding of lung field; Z85.118 Personal history of other malignant neoplasm of bronchus and lung; Z90.2 Acquired absence of lung [part of] | CPT/HCPCS: 99212 ==

== ENCOUNTER 2024-01-05 14:54 | Outpatient (AMB) | payer MEDICARE, SELFPAY ==
[2024-01-05 15:06] LABS: Prothrombin Time Whole Bld POC 27.2 sec (11.1-13.5); ~PT, ~INR - Anti Coag Clinic 2.3 (0.9-1.1)
--- NOTE | 2024-01-05 15:10 | MHC.OFFVISCO ---
Intake Intake Visit Reasons: Anticoagulation Allergies bupropion [From Wellbutrin] Allergy (Intermediate, Verified 01/05/24 14:57) Nausea levofloxacin [From LEVAQUIN] Allergy (Intermediate, Verified 01/05/24 14:57) GI UPSET/ WEIGHT LOSS, anaphylaxis sulfamethoxazole [From Bactrim] Allergy (Intermediate, Verified 01/05/24 14:57) rash trimethoprim [From Bactrim] Allergy (Intermediate, Verified 01/05/24 14:57) rash ibuprofen Allergy (Mild, Verified 01/05/24 14:57) GI DISTRESS Medication List - Last Reconciled 01/05/24 by Cherrie Parker RN acetaminophen 500 mg PO Q6H PRN albuterol sulfate 90 mcg/actuation 1 inh PO Q4H PRN albuterol sulfate 90 mcg/actuation 2 puffs PO Q6H PRN albuterol sulfate 2.5 mg (3 mL) continuous nebulization QID PRN aspirin 81 mg PO DAILY atorvastatin 20 mg PO DAILY calcium citrate 500 mg (2 x 250 mg calcium) PO BID 90 days carvedilol 3.125 mg PO BID cholecalciferol (vitamin D3) 100 mcg (2 x 50 mcg (2,000 unit)) PO DAILY 90 days cranberry fruit concentrate (Azo Cranberry) PO diltiazem HCl 120 mg PO BID doxycycline hyclate 100 mg PO Q24H [ENSURE / BOOST PO DAILY] rteiozmssxg-lteyvtjnr-etydfjwh 100-62.5-25 mcg (Trelegy Ellipta) 1 inh inhalation DAILY 30 days nebulizers As directed oxycodone 10 mg PO Q6H oxycodone ER (OxyContin) 10 mg PO BID Oxygen Home Use As directed [probiotics PO] sertraline 25 mg PO DAILY simethicone (Gas Relief (simethicone)) 160 mg (2 x 80 mg) PO TID PRN 30 days sodium chloride 7% 4 mL inhalation BID theophylline ER 400 mg PO DAILY warfarin 2.5 mg See Protocol PO DAILY Nursing Note INR: 2.3 in therapeutic range Medications and supplements reviewed No changes in health, diet, medications, or supplements, Denies any signs and symptoms of bleeding or bruising or clotting. Bleeding, bruising, clotting discussed Nutritional guidance given Dose: 3.75mg x 2 days/ 2.5mg x 5 days F/U INR: 4 weeks Patient verbalizes understanding of instructions given Anti-Coag Initial Assessment Social Hx Patient Tobacco Use Status: Former Tobacco user Tobacco use type: Cigarette Alcohol intake frequency: does not drink Coding Level of Care Code Est Patient Level 1 Diagnoses Current use of anticoagulant therapy Z79.01 Results AMB INR Fingerstick AMB INR Fingerstick 2.3 Last Edit by Cherrie Parker RN on 01/05/24 15:07 manual entry Assessment & Plan Assessment & Plan (1) Current use of anticoagulant therapy: Code(s): Z79.01 - senior care (current) use of 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
== END 2024-01-05 15:12 | disposition home or self-care (01) ==
LOC: HO.ACS 14:54
PROVIDERS: PCP Hospitalist; Visit Provider Internal Medicine
DX: Z79.01 Long term (current) use of anticoagulants (principal)

== ENCOUNTER → 2024-01-05 14:54 | Outpatient (BNVA) | payer MEDICARE, SELFPAY | PROVIDERS: PCP Hospitalist; Visit Provider Internal Medicine | DX: Z86.73 Personal history of transient ischemic attack (TIA), and cerebral infarction without residual deficits (principal); Z79.01 Long term (current) use of anticoagulants; Z51.81 Encounter for therapeutic drug level monitoring | CPT/HCPCS: 85610; 99211 ==

== ENCOUNTER 2024-02-02 14:28 | Outpatient (AMB) | payer MEDICARE, SELFPAY ==
--- NOTE | 2024-02-02 14:42 | MHC.OFFVISCO ---
Intake Intake Visit Reasons: Anticoagulation Allergies bupropion [From Wellbutrin] Allergy (Intermediate, Verified 02/02/24 14:30) Nausea levofloxacin [From LEVAQUIN] Allergy (Intermediate, Verified 02/02/24 14:30) GI UPSET/ WEIGHT LOSS, anaphylaxis sulfamethoxazole [From Bactrim] Allergy (Intermediate, Verified 02/02/24 14:30) rash trimethoprim [From Bactrim] Allergy (Intermediate, Verified 02/02/24 14:30) rash ibuprofen Allergy (Mild, Verified 02/02/24 14:30) GI DISTRESS Medication List - Last Reconciled 02/02/24 by Cherrie Parker RN acetaminophen 500 mg PO Q6H PRN albuterol sulfate 90 mcg/actuation 1 inh PO Q4H PRN albuterol sulfate 90 mcg/actuation 2 puffs PO Q6H PRN albuterol sulfate 2.5 mg (3 mL) continuous nebulization QID PRN aspirin 81 mg PO DAILY atorvastatin 20 mg PO DAILY calcium citrate 500 mg (2 x 250 mg calcium) PO BID 90 days carvedilol 3.125 mg PO BID cholecalciferol (vitamin D3) 100 mcg (2 x 50 mcg (2,000 unit)) PO DAILY 90 days cranberry fruit concentrate (Azo Cranberry) PO diltiazem HCl 120 mg PO BID doxycycline hyclate 100 mg PO Q24H [ENSURE / BOOST PO DAILY] [id number]-ynjphgvhi-[id number] 100-62.5-25 mcg (Trelegy Ellipta) 1 inh inhalation DAILY 30 days nebulizers As directed oxycodone 10 mg PO Q6H oxycodone ER (OxyContin) 10 mg PO BID Oxygen Home Use As directed [probiotics PO] sertraline 25 mg PO DAILY simethicone (Gas Relief (simethicone)) 160 mg (2 x 80 mg) PO TID PRN 30 days sodium chloride 7% 4 mL inhalation BID theophylline ER 400 mg PO DAILY warfarin 2.5 mg See Protocol PO DAILY Nursing Note INR: 2.2 in therapeutic range Medications and supplements reviewed No changes in health, diet, medications, or supplements, Denies any signs and symptoms of bleeding or bruising or clotting. Bleeding, bruising, clotting discussed Nutritional guidance given Dose: 3.75mg x 2 days/ 2.5mg x 5 days F/U INR: 1 month Patient verbalizes understanding of instructions given Anti-Coag Initial Assessment Social Hx Patient Tobacco Use Status: Former Tobacco user Tobacco use type: Cigarette Alcohol intake frequency: does not drink Coding Level of Care Code Est Patient Level 1 Diagnoses Current use of anticoagulant therapy Z79.01 Results AMB INR Fingerstick AMB INR Fingerstick 2.2 Last Edit by Cherrie Parker RN on 02/02/24 14:38 manual entry Assessment & Plan Assessment & Plan (1) Current use of anticoagulant therapy: Code(s): Z79.01 - senior living (current) use of 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
[2024-02-02 14:49] LABS: Prothrombin Time Whole Bld POC 26.3 sec (11.1-13.5); ~PT, ~INR - Anti Coag Clinic 2.2 (0.9-1.1)
== END 2024-02-02 14:43 | disposition home or self-care (01) ==
LOC: HO.ACS 14:28
PROVIDERS: PCP Hospitalist; Visit Provider Internal Medicine
DX: Z79.01 Long term (current) use of anticoagulants (principal)

== ENCOUNTER → 2024-02-02 14:28 | Outpatient (BNVA) | payer MEDICARE, SELFPAY | PROVIDERS: PCP Hospitalist; Visit Provider Internal Medicine | DX: Z86.73 Personal history of transient ischemic attack (TIA), and cerebral infarction without residual deficits (principal); Z79.01 Long term (current) use of anticoagulants; Z51.81 Encounter for therapeutic drug level monitoring | CPT/HCPCS: 85610; 99211 ==

== ENCOUNTER 2024-03-01 14:25 | Outpatient (AMB) | payer MEDICARE, SELFPAY ==
[2024-03-01 14:34] LABS: Prothrombin Time Whole Bld POC 24.7 sec (11.1-13.5); ~PT, ~INR - Anti Coag Clinic 2.1 (0.9-1.1)
--- NOTE | 2024-03-01 14:46 | MHC.OFFVISCO ---
Intake Intake Visit Reasons: Anticoagulation Allergies bupropion [From Wellbutrin] Allergy (Intermediate, Verified 03/01/24 14:29) Nausea levofloxacin [From LEVAQUIN] Allergy (Intermediate, Verified 03/01/24 14:29) GI UPSET/ WEIGHT LOSS, anaphylaxis sulfamethoxazole [From Bactrim] Allergy (Intermediate, Verified 03/01/24 14:29) rash trimethoprim [From Bactrim] Allergy (Intermediate, Verified 03/01/24 14:29) rash ibuprofen Allergy (Mild, Verified 03/01/24 14:29) GI DISTRESS Medication List - Last Reconciled 03/01/24 by Mira Hurt, BLUE acetaminophen 500 mg PO Q6H PRN albuterol sulfate 90 mcg/actuation 1 inh PO Q4H PRN albuterol sulfate 90 mcg/actuation 2 puffs PO Q6H PRN albuterol sulfate 2.5 mg (3 mL) continuous nebulization QID PRN aspirin 81 mg PO DAILY atorvastatin 20 mg PO DAILY calcium citrate 500 mg (2 x 250 mg calcium) PO BID 90 days carvedilol 3.125 mg PO BID cholecalciferol (vitamin D3) 100 mcg (2 x 50 mcg (2,000 unit)) PO DAILY 90 days cranberry fruit concentrate (Azo Cranberry) PO diltiazem HCl 120 mg PO BID doxycycline hyclate 100 mg PO Q24H [ENSURE / BOOST PO DAILY] [id number]-twhwxohtw-[id number] 100-62.5-25 mcg (Trelegy Ellipta) 1 inh inhalation DAILY 30 days nebulizers As directed oxycodone 10 mg PO Q6H oxycodone ER (OxyContin) 10 mg PO BID Oxygen Home Use As directed [probiotics PO] sertraline 25 mg PO DAILY simethicone (Gas Relief (simethicone)) 160 mg (2 x 80 mg) PO TID PRN 30 days sodium chloride 7% 4 mL inhalation BID theophylline ER 400 mg PO DAILY warfarin 2.5 mg See Protocol PO DAILY Nursing Note INR: 2.1 in therapeutic range of 2-3 Medications and supplements reviewed No changes in health, diet, medications, or supplements, Denies any signs and symptoms of bleeding or bruising or clotting. Bleeding, bruising, clotting discussed Nutritional guidance given to have a serving of foods from the list that raises the INR. Food list reviewed with pt. He doesn't eat much (wt 95lbs per pt) and wasn't going to have any of those foods so today's dose increased by 1.25mg. Dose: increase today's dose to 3.75mg then resume usual dose of 2.5mg X5 days and 3.75mg X 2 days F/U INR: 4 weeks Patient verbalizes understanding of instructions given Anti-Coag Initial Assessment Social Hx Patient Tobacco Use Status: Former Tobacco user Tobacco use type: Cigarette Alcohol intake frequency: does not drink Coding Level of Care Code Est Patient Level 1 Diagnoses Current use of anticoagulant therapy Z79.01 Results AMB INR Fingerstick AMB INR Fingerstick 2.1 Last Edit by Mira Hurt RN on 03/01/24 14:34 interface delay Assessment & Plan Assessment & Plan (1) Current use of anticoagulant therapy: Code(s): 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
== END 2024-03-01 14:50 | disposition home or self-care (01) ==
LOC: HO.ACS 14:25
PROVIDERS: PCP Hospitalist; Visit Provider Internal Medicine
DX: Z79.01 Long term (current) use of anticoagulants (principal)

== ENCOUNTER → 2024-03-01 14:25 | Outpatient (BNVA) | payer MEDICARE, SELFPAY | PROVIDERS: PCP Hospitalist; Visit Provider Internal Medicine | DX: Z86.73 Personal history of transient ischemic attack (TIA), and cerebral infarction without residual deficits (principal); Z79.01 Long term (current) use of anticoagulants; Z51.81 Encounter for therapeutic drug level monitoring | CPT/HCPCS: 85610; 99211 ==

== ENCOUNTER 2024-03-07 10:16 | Outpatient (AMB) | payer MEDICARE, SELFPAY ==
[2024-03-07 10:22] VITALS: BP 130/64; PULSE 83; O2SAT 98; BMI 17.1
--- NOTE | 2024-03-07 10:22 | A.OFFVIS_ITS ---
Vital Signs 3 03/07/24 10:22 Height 5 ft 6 in Weight 105 lb 13.15 oz BMI 17.1 BP 130/64 Blood Pressure Location Rt brachial Position Sitting Pulse 83 Pulse Source Pulse Oximeter Pulse Oximetry (%) 98 Oxygen Delivery Method Room Air Intake Visit Reasons: L Carotid Endarectomy - [facility] Vascular Allergies bupropion [From Wellbutrin] Allergy (Intermediate, Verified 03/07/24 10:26) Nausea levofloxacin [From LEVAQUIN] Allergy (Intermediate, Verified 03/07/24 10:26) GI UPSET/ WEIGHT LOSS, anaphylaxis sulfamethoxazole [From Bactrim] Allergy (Intermediate, Verified 03/07/24 10:26) rash trimethoprim [From Bactrim] Allergy (Intermediate, Verified 03/07/24 10:26) rash ibuprofen Allergy (Mild, Verified 03/07/24 10:26) GI DISTRESS HPI Comments Details: The patient is a 74-year-old gentleman with a significant pulmonary history. the patient does have a history of lung cancer diagnosed back in 2019 status post right upper lobectomy. Patient did not receive any chemo or radiation. He also carries diagnosis of COPD. He also has pulmonary nodules and also evidence of interstitial lung disease. His last CT scan of the chest was done back in August 2021 at [facility]. It appears that the patient has evidence of interstitial lung disease with underlying pulmonary fibrosis. There is also evidence of bronchiectasis with extensive mucus plugging. He has pulmonary nodules. Some of the areas of pulmonary fibrosis appear to be coalescing and difficult to know if there is any recurrent malignancy. The radiologist recommended a close follow-up. The patient continues to have a worsening cough productive in nature. Yellowish to green sputum. We were able to perform a nebulized treatment with Xopenex and hypertonic saline and did send sputum for culture for both AFB and Gram staining culture. The patient has had a bronchoscopy in the past many years ago performed by a local thoracic surgeon and he tolerated that well. At this point he does not need a bronchoscopy but we have to work on his chest physical therapy. The patient does have a percussion valve already prescribed by his previous tester sound. At this time will increase his chest physical therapy to try to remove mucus plugging in the patient will need a repeat CT scan. In addition to that the patient has been getting samples of Trelegy which appears to be very effective in beneficial for him. However, is also very expensive and he is currently in the donut hole. I will send him a generic Wixela with hope that this will be less of a financial burden. 09/29/2023 the patient is here for a pulmonary follow-up visit. He continues to do fairly well. 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 The twice a day dosing is hard for him because of GI upset. He is going to decrease it down to once a day. Also can try some simethicone as needed. His cough congestion has improved. He is also dealing with atrial fibrillation. But hopefully we can get him back to pulmonary rehab so he can start exercising. He needs to also increase his caloric intake to make sure that he gained some weight. Continues use the oxygen with good effect. Will go ahead and decrease his Trelegy down to 100 from 200 because of his concerns of high inhaled steroids. We also did review his last CT scan of the chest that was done at [facility] in 2021. Patient did have pulmonary nodules. Based on his ongoing symptoms in his weight loss will go ahead and request a CT scan of the chest prior to the next visit. 01/04/2024 the patient is here for a pulmonary follow-up visit. The patient overall has been doing better. He has been responding well to the doxycycline. Although sometimes hard to tolerate. Sometimes he does decreased down to 3 times a week which is very reasonable. The patient did have a CT scan of the chest that we did personally review. And appears that he has some chronic airway disease emphysematous changes and some degree of atelectasis and scarring. The patient does have the oxygen at home he does use it if he does get involved in increased exercise activity. He was supposed to start pulmonary rehabilitation but he had not started as of yet. I am hopeful that he calls and this situated with the quickly start building muscle strength and respiratory endurance. Will continue with chest PT as well. The patient will continue with current therapy and will follow-up sometime in the spring. If he has any issues prior to that he will call for an earlier assessment. 03/07/2024 the patient is here for a pulmonary preoperative evaluation. 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 He is here to be evaluated preoperatively. The patient does have advanced COPD. He has also has bronchiectasis and has been colonized with stenotrophomonas responding well to the antibiotic therapy that he uses prophylactically. In view of his perioperative pulmonary risk the patient is considered very high risk. We had him do a spirometry in the office in his FEV1 was only 22% predicted which is 0.57 L. This is consistent with very severe COPD. The patient's last blood gas also demonstrated a slightly elevated pCO2 of 50 mmHg. Therefore the patient does have evidence of hypercarbic respiratory failure due to COPD. Therefore any form of anesthesia will be considered high risk for perioperative pulmonary complications which include; atelectasis, hypoxia, pneumonia, bronchospasms and prolonged mechanical ventilation. During the visit with good did go for a walking oximetry the patient was able to maintain a pulse ox of 96% throughout the ambulation which is reassuring. His distance score was also these at 5 out of 10. He continues uses respiratory therapy as prescribed. Otherwise the patient is without any other complaints. [facility] Medical History (Updated 03/07/24 @ 22:08 by Tony Jhaveri MD) Bronchiectasis Pulmonary fibrosis Pulmonary nodules Bronchiectasis History of MRSA infection Arthritis Back pain Hx of spinal stenosis Lab test negative for COVID-19 virus Arrhythmia Hx of Clostridium difficile infection Hx of cancer of lung On anticoagulant therapy Elevated cholesterol Hx of ulcerative colitis CVA (cerebral vascular accident) COPD (chronic obstructive pulmonary disease) AAA (abdominal aortic aneurysm) Vitamin D deficiency Hypogonadotropic hypogonadism Osteoporosis Surgical History H/O colonoscopy History of bowel resection History of bronchoscopy History of lobectomy of lung Hx of cervical discectomy Family History Father AAA (abdominal aortic aneurysm) Mother No problems noted. Social History Are you a primary manager respiratory care to a significant other at home: No Do you presently have visiting nurse or other home services: No Patient Tobacco Use Status: Former Tobacco user Tobacco use type: Cigarette Years Smoked: 54 Years Substance Use Type: Marijuana Review of Systems Const Reports fatigue and Denies fever(s) Eyes Denies eye discharge ENT Denies change in voice Card Denies chest pain and Reports dyspnea on exertion Resp Reports chest congestion, Reports cough, Denies hemoptysis, Reports dyspnea on exertion and Denies wheezing GI Reports no additional complaints Reports as per HPI and Reports hematuria Musc Reports no additional complaints Skin/Breast Denies rash Neuro Reports no additional complaints Endo Reports no additional complaints and Reports fatigue Ortiz/Lymph Denies easy bleeding, Denies easy bruising and Denies lymphadenopathy Aller/Immun Denies wheezing Physical Exam Vital Signs: Last Vital Signs Pulse 83 03/07/24 10:22 BP 130/64 03/07/24 10:22 Pulse Ox 98 03/07/24 10:22 Oxygen Delivery Method Room Air 03/07/24 10:22 BMI result Body Mass Index 17.1 Const General: comfortable HEENT Head: Yes normal to inspection Eyes General: appearance normal, both eyes and all related structures Neck Neck: Yes supple Chest Chest palpation & inspection: normal inspection of the chest Resp Effort & Inspection: normal respiratory effort Auscultation: no crackles, no rales, no rhonchi and diminished lung sounds Cardio Rate: regular rate Rhythm: regular rhythm Heart sounds: S1 normal heart sound present and S2 normal heart sound present Extrem General: Yes no clubbing, cyanosis or edema Immunizations pneumoc 20-rose conj-dip cr(PF) 0.5 mL IM syringe Performing Provider: Tony Jhaveri MD Performing Location: [facility] [place] Pulmonology Services Administered by: Leila Sinclair LPN on 03/07/24 10:57 2 Dose Route Admin Location Dispensed Lot Number Expiration Date NDC Station Tender 0.5 mL IM Right Deltoid 0.5 mL [id number] 04/23/25 5180-1422-08 [employer] 2 VIS Given Date VIS Provided VIS Publication Date 03/07/24 Single Vaccine 21 Eligibility Eligibility Date Funding Source Not [facility] Eligible 03/07/24 Private Results Reviewed Results Reviewed: Assessment & Plan Assessment & Plan (1) Pre-op chest exam: Code(s): Z01.811 - Encounter for preprocedural respiratory examination Category: Medical (2) Bronchiectasis: Code(s): J47.9 - Bronchiectasis, uncomplicated Category: Medical Qualifiers: Bronchiectasis type: uncomplicated Qualified Code(s): J47.9 - Bronchiectasis, uncomplicated (3) COPD (chronic obstructive pulmonary disease): Comment: very severe, FEV 1 22%predicted Code(s): J44.9 - Chronic obstructive pulmonary disease, unspecified Category: Medical Qualifiers: COPD type: COPD with acute exacerbation Qualified Code(s): J44.1 - Chronic obstructive pulmonary disease with (acute) exacerbation (4) Dyspnea: Code(s): R06.00 - Dyspnea, unspecified Category: Medical Qualifiers: Dyspnea type: dyspnea on exertion Qualified Code(s): R06.09 - Other forms of dyspnea (5) Pulmonary fibrosis: Code(s): J84.10 - Pulmonary fibrosis, unspecified Category: Medical (6) Pulmonary nodules: Code(s): R91.8 - Other nonspecific abnormal finding of lung field Category: Medical (7) Hx of cancer of lung: Comment: with right upper [id number] not need chemotherapy or radiation Code(s): Z85.118 - Personal history of other malignant neoplasm of bronchus and lung Category: Medical Plan The patient is very high risk for perioperative pulmonary complications which include; atelectasis, hypoxia, pneumonia, bronchospasms, prolonged mechanical ventilation and . The patient's FEV1 is only 22% predicted and he does have an elevated CO2 suggesting hypercarbia. His 6 minute walk test is reassuring as he is condition at this time. He should not be offered any elective surgery in view of his poor pulmonary capacity. If the surgery is consider semi elective, then all the non surgical alternative options should be explored before proceeding with surgery. If the patient consents for surgery he understands he is high risk for these perioperative pulmonary complications. At this point the patient is medically optimize as much as possible from a pulmonary standpoint. His exercise tolerance seems to be adequate. But, he does not have any respiratory reserve. continue Doxycycline to daily Trelegy 100mcg daily nebulized therapy with albuterol followed by hypertonic saline followed by Aerobika valve twice a day hypertonic saline 3% to be started for his chest physical therapy needs to restart Pulmonary rehab Mucinex as needed follow-up in 4-6 months Orders: Orders 2 Pneumococcal 20 Immunization Today J44.1 - Chronic obstructive pulmonary disease with (acute) exacerbation, J47.9 - Bronchiectasis, uncomplicated Coding Level of Care Code Est Pt Level 4 (84472) Complex EM visit Add On G2211 Diagnoses Pre-op chest exam Z01.811 Bronchiectasis without complication J47.9 Bronchiectasis type: uncomplicated Chronic obstructive pulmonary disease with acute exacerbation J44.1 COPD type: COPD with acute exacerbation Dyspnea on exertion R06.09 Dyspnea type: dyspnea on exertion Pulmonary fibrosis J84.10 Pulmonary nodules R91.8 Hx of cancer of lung Z85.118 Time Spent (min) 17
== END 2024-03-07 11:09 | disposition home or self-care (01) ==
PROVIDERS: PCP Hospitalist; Visit Provider Hospitalist
DX: Z01.811 Encounter for preprocedural respiratory examination (principal); J47.9 Bronchiectasis, uncomplicated; J44.1 Chronic obstructive pulmonary disease with (acute) exacerbation; R06.09 Other forms of dyspnea; J84.10 Pulmonary fibrosis, unspecified; R91.8 Other nonspecific abnormal finding of lung field; Z85.118 Personal history of other malignant neoplasm of bronchus and lung
CPT/HCPCS: 99214; G2211

== ENCOUNTER → 2024-03-07 10:16 | Outpatient (BNVA) | payer MEDICARE, SELFPAY | PROVIDERS: PCP Hospitalist; Visit Provider Hospitalist | DX: Z01.811 Encounter for preprocedural respiratory examination (principal); J47.9 Bronchiectasis, uncomplicated; J44.1 Chronic obstructive pulmonary disease with (acute) exacerbation; J84.10 Pulmonary fibrosis, unspecified; R91.8 Other nonspecific abnormal finding of lung field; R06.09 Other forms of dyspnea; Z85.118 Personal history of other malignant neoplasm of bronchus and lung; Z90.2 Acquired absence of lung [part of]; Z23 Encounter for immunization | CPT/HCPCS: 90471; 90677; 99212 ==

== ENCOUNTER → 2024-03-29 14:35 | Outpatient (BNVA) | payer MEDICARE, SELFPAY | PROVIDERS: PCP Hospitalist; Visit Provider Internal Medicine | DX: Z86.73 Personal history of transient ischemic attack (TIA), and cerebral infarction without residual deficits (principal); Z79.01 Long term (current) use of anticoagulants; Z51.81 Encounter for therapeutic drug level monitoring | CPT/HCPCS: 85610; 99211 ==

== ENCOUNTER 2024-04-26 14:11 | Outpatient (AMB) | payer MEDICARE, SELFPAY ==
[2024-04-26 14:32] LABS: Prothrombin Time Whole Bld POC 42.1 sec (11.1-13.5); ~PT, ~INR - Anti Coag Clinic 3.5 (0.9-1.1)
--- NOTE | 2024-04-26 14:44 | MHC.OFFVISCO ---
Intake Intake Visit Reasons: Anticoagulation Allergies bupropion [From Wellbutrin] Allergy (Intermediate, Verified 04/26/24 14:24) Nausea levofloxacin [From LEVAQUIN] Allergy (Intermediate, Verified 04/26/24 14:24) GI UPSET/ WEIGHT LOSS, anaphylaxis sulfamethoxazole [From Bactrim] Allergy (Intermediate, Verified 04/26/24 14:24) rash trimethoprim [From Bactrim] Allergy (Intermediate, Verified 04/26/24 14:24) rash ibuprofen Allergy (Mild, Verified 04/26/24 14:24) GI DISTRESS Medication List - Last Reconciled 04/26/24 by Cherrie Parker RN acetaminophen 500 mg PO Q6H PRN albuterol sulfate 90 mcg/actuation 1 inh PO Q4H PRN albuterol sulfate 90 mcg/actuation 2 puffs PO Q6H PRN albuterol sulfate 2.5 mg (3 mL) continuous nebulization QID PRN aspirin 81 mg PO DAILY atorvastatin 20 mg PO DAILY calcium citrate 500 mg (2 x 250 mg calcium) PO BID 90 days carvedilol 3.125 mg PO BID cholecalciferol (vitamin D3) 100 mcg (2 x 50 mcg (2,000 unit)) PO DAILY 90 days cranberry fruit concentrate (Azo Cranberry) PO diltiazem HCl 120 mg PO BID doxycycline hyclate 100 mg PO Q24H [ENSURE / BOOST PO DAILY] pecnznykcoi-gceonlcqv-gaxeemgl 100-62.5-25 mcg (Trelegy Ellipta) 1 inh inhalation DAILY 30 days nebulizers As directed oxycodone 10 mg PO Q6H oxycodone ER (OxyContin) 10 mg PO BID Oxygen Home Use As directed [probiotics PO] sertraline 25 mg PO DAILY simethicone (Gas Relief (simethicone)) 160 mg (2 x 80 mg) PO TID PRN 30 days sodium chloride 7% 4 mL inhalation BID theophylline ER 400 mg PO DAILY warfarin 2.5 mg See Protocol PO DAILY Nursing Note INR: 3.5 OUT OF therapeutic range Medications and supplements reviewed- HAS BEEN TAKING DOXYCYCLINE 100MG PO BID X 1 WEEK- IT WAS EXPLAINED THAT IT CAN HAVE A DELAYED ONSET AND RAISE THE INR - HE STATED HE HAD URI WITH THICK MUCUS AND INCREASED HIS DOSE - HE WILL BE GOING BACK TO [facility]INTENCE DOSE OF 100MG ONCE DAILY MONDAY HE ALSO HAD THE NORO GI VIRUS RECENTLY AND FEELING BETTER FROM BOTH THE URI AND GI VIRUSES STATES HIS APPETITE IS SO MUCH BETTER Denies any signs and symptoms of bleeding or bruising or clotting. Bleeding, bruising, clotting discussed Nutritional guidance given - HAVE A LITTLE BIT OF GREENS IN SOUP WHILE ON BID ANTBX Dose: HOLD TODAY THEN RESUME USUSAL DOSE 3.75MG X 2 DAYS/ 2.5MG X 5 DAYS - HE IS INSTRUCTED TO CALL IF HE KEEPS BID DOXYCYLCINE - MAY THEN DECREASE DOSE TO 3.75MG X 1 DAY/ 2.5MG X 6 DAYS F/U INR: 2 WEEKS Patient verbalizes understanding of instructions given Anti-Coag Initial Assessment Social Hx Patient Tobacco Use Status: Former Tobacco user Tobacco use type: Cigarette Alcohol intake frequency: does not drink Coding Level of Care Code Est Patient Level 1 Diagnoses Current use of anticoagulant therapy Z79.01 Results AMB INR Fingerstick AMB INR Fingerstick 3.5 Last Edit by Cherrie Parker RN on 04/26/24 14:37 manual entry Assessment & Plan Assessment & Plan (1) Current use of anticoagulant therapy: 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
== END 2024-04-26 14:51 | disposition home or self-care (01) ==
LOC: HO.ACS 14:11
PROVIDERS: PCP Hospitalist; Visit Provider Internal Medicine
DX: Z79.01 Long term (current) use of anticoagulants (principal)

== ENCOUNTER → 2024-04-26 14:11 | Outpatient (BNVA) | payer MEDICARE, SELFPAY | PROVIDERS: PCP Hospitalist; Visit Provider Internal Medicine | DX: Z86.73 Personal history of transient ischemic attack (TIA), and cerebral infarction without residual deficits (principal); Z79.01 Long term (current) use of anticoagulants; Z51.81 Encounter for therapeutic drug level monitoring | CPT/HCPCS: 85610; 99211 ==

== ENCOUNTER 2024-05-10 14:51 | Outpatient (AMB) | payer MEDICARE, SELFPAY ==
[2024-05-10 15:00] LABS: Prothrombin Time Whole Bld POC 40.7 sec (11.1-13.5); ~PT, ~INR - Anti Coag Clinic 3.4 (0.9-1.1)
--- NOTE | 2024-05-10 15:07 | MHC.OFFVISCO ---
Intake Intake Visit Reasons: Anticoagulation Allergies bupropion [From Wellbutrin] Allergy (Intermediate, Verified 05/10/24 14:53) Nausea levofloxacin [From LEVAQUIN] Allergy (Intermediate, Verified 05/10/24 14:53) GI UPSET/ WEIGHT LOSS, anaphylaxis sulfamethoxazole [From Bactrim] Allergy (Intermediate, Verified 05/10/24 14:53) rash trimethoprim [From Bactrim] Allergy (Intermediate, Verified 05/10/24 14:53) rash ibuprofen Allergy (Mild, Verified 05/10/24 14:53) GI DISTRESS Medication List - Last Reconciled 05/10/24 by Mira Hurt, BLUE acetaminophen 500 mg PO Q6H PRN albuterol sulfate 90 mcg/actuation 1 inh PO Q4H PRN albuterol sulfate 90 mcg/actuation 2 puffs PO Q6H PRN albuterol sulfate 2.5 mg (3 mL) continuous nebulization QID PRN aspirin 81 mg PO DAILY atorvastatin 20 mg PO DAILY calcium citrate 500 mg (2 x 250 mg calcium) PO BID 90 days carvedilol 3.125 mg PO BID cholecalciferol (vitamin D3) 100 mcg (2 x 50 mcg (2,000 unit)) PO DAILY 90 days cranberry fruit concentrate (Azo Cranberry) PO diltiazem HCl 120 mg PO BID doxycycline hyclate 100 mg PO Q24H [ENSURE / BOOST PO DAILY] effbajwkssu-zzciztzql-ulrcgmhs 100-62.5-25 mcg (Trelegy Ellipta) 1 inh inhalation DAILY 30 days nebulizers As directed oxycodone 10 mg PO Q6H oxycodone ER (OxyContin) 10 mg PO BID Oxygen Home Use As directed [probiotics PO] sertraline 25 mg PO DAILY simethicone (Gas Relief (simethicone)) 160 mg (2 x 80 mg) PO TID PRN 30 days sodium chloride 7% 4 mL inhalation BID theophylline ER 400 mg PO DAILY warfarin 2.5 mg See Protocol PO DAILY Nursing Note INR: 3.4?out of therapeutic range of 2-3 Medications and supplements reviewed Patient status: feels well. Previously on Doxycycline bid for URI which can have a delayed effect to raise the INR. Pt states he will be having a colonoscopy at [facility] last week of April. he can't remember the date exactly. States he has instructions from [facility] about holding warfarin and states he will be on lovenox. Instructed pt to call [facility] to let us know when the procedure is. We will schedule him 1st week of May but want to see him 3-5 days after restarting warfarin. Medications or supplements: no changes Diet: no changes Denies any signs and symptoms of bleeding or clotting or unusual bruising Bleeding, bruising, clotting discussed Nutritional guidance given: to have a serving of greens today Dose: hold today's dose of 2.5mg then weekly dose decreased by 1.25mg. Pt will take 2.5mg X 6 days and 3.75mg X 1 day (instead of 2 days) F/U INR Date : 05/27/24?? Patient verbalizing understanding of instructions given. 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
== END 2024-05-10 15:17 | disposition home or self-care (01) ==
LOC: HO.ACS 14:51
PROVIDERS: PCP Hospitalist; Visit Provider Internal Medicine
DX: Z79.01 Long term (current) use of anticoagulants (principal)

== ENCOUNTER → 2024-05-10 14:51 | Outpatient (BNVA) | payer MEDICARE, SELFPAY | PROVIDERS: PCP Hospitalist; Visit Provider Internal Medicine | DX: Z86.73 Personal history of transient ischemic attack (TIA), and cerebral infarction without residual deficits (principal); Z79.01 Long term (current) use of anticoagulants; Z51.81 Encounter for therapeutic drug level monitoring | CPT/HCPCS: 85610; 99211 ==

== ENCOUNTER 2024-05-27 14:44 | Outpatient (AMB) | payer MEDICARE, SELFPAY ==
[2024-05-27 14:57] LABS: Prothrombin Time Whole Bld POC 16.8 sec (11.1-13.5); ~PT, ~INR - Anti Coag Clinic 1.4 (0.9-1.1)
--- NOTE | 2024-05-27 15:19 | MHC.OFFVISCO ---
Intake Intake Visit Reasons: Anticoagulation Allergies bupropion [From Wellbutrin] Allergy (Intermediate, Verified 05/27/24 14:49) Nausea levofloxacin [From LEVAQUIN] Allergy (Intermediate, Verified 05/27/24 14:49) GI UPSET/ WEIGHT LOSS, anaphylaxis sulfamethoxazole [From Bactrim] Allergy (Intermediate, Verified 05/27/24 14:49) rash trimethoprim [From Bactrim] Allergy (Intermediate, Verified 05/27/24 14:49) rash ibuprofen Allergy (Mild, Verified 05/27/24 14:49) GI DISTRESS Medication List - Last Reconciled 05/27/24 by Cherrie Parker RN acetaminophen 500 mg PO Q6H PRN albuterol sulfate 90 mcg/actuation 1 inh PO Q4H PRN albuterol sulfate 90 mcg/actuation 2 puffs PO Q6H PRN albuterol sulfate 2.5 mg (3 mL) continuous nebulization QID PRN aspirin 81 mg PO DAILY atorvastatin 20 mg PO DAILY calcium citrate 500 mg (2 x 250 mg calcium) PO BID 90 days carvedilol 3.125 mg PO BID cholecalciferol (vitamin D3) 100 mcg (2 x 50 mcg (2,000 unit)) PO DAILY 90 days cranberry fruit concentrate (Azo Cranberry) PO diltiazem HCl 120 mg PO BID doxycycline hyclate 100 mg PO Q24H enoxaparin mg subcut [ENSURE / BOOST PO DAILY] krzoqvbkodw-wgurlcmpv-xjqpqize 100-62.5-25 mcg (Trelegy Ellipta) 1 inh inhalation DAILY 30 days nebulizers As directed oxycodone 10 mg PO Q6H oxycodone ER (OxyContin) 10 mg PO BID Oxygen Home Use As directed [probiotics PO] sertraline 25 mg PO DAILY simethicone (Gas Relief (simethicone)) 160 mg (2 x 80 mg) PO TID PRN 30 days sodium chloride 7% 4 mL inhalation BID theophylline ER 400 mg PO DAILY warfarin 2.5 mg See Protocol PO DAILY Nursing Note INR 1.4 out of therapeutic range Medications and supplements reviewed Patient status: S/P COLONOSCOPY 05/22/24- AT [facility] S/P WAFARIN HOLD AND LOVNEOX BRIDGE PER MD Had polypectomy x 2 - post op day 1 passed several blood clots - he did not take warfarin booster dose or lovenox due bleeding- He ate Escrole soup x 2 and had boost x 2 - explained those are part of the reason for low INR - plus healing from polypectomy He appears to have lost more weight Medications or supplements: no changes Diet: good Denies any signs and symptoms of bleeding or clotting or unusual bruising Bleeding, bruising, clotting discussed Nutritional guidance given: try to avoid greens but eats more ( finishes soup) to eat more orange and reds to help raise the INR Dose: 5mg today then resume usual dose 3.75mg x 2 days/ 2.5mg x 5 days F/U INR Date: this Monday05/31/24 ?? Patient verbalizing understanding of instructions given with good read back. 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
--- OUTSIDE RECORDS SUMMARY | 2024-05-27 16:19 | XMS_ITS | Clinical Summary ---
Author Organization [facility] Address [address] [place] [address] Care Team Providers Care Stripper And Printer Name Role Phone Timoteo Escamilla MD Primary Care Provider [phone] Allergies Active Allergy Reactions Criticality Noted Date Comments Ibuprofen 10/13/2022 Medications Medication Sig Dispensed Refills Start Date End Date Status fluticasone-salmete rol 250-50 MCG/ACT AEPB Inhale into the lungs. 0 Active Fluticasone-Umeclid in-Vilant (Trelegy Ellipta) 100-62.5-25 MCG/ACT AEPB Inhale into the lungs. 0 Active Albuterol Sulfate (PROAIR RESPICLICK IN) Inhale into the lungs. 0 Active albuterol (ACCUNEB) 1.25 MG/3ML nebulizer solution Take 3 mL (1.25 mg total) by nebulization every 6 (six) hours as needed for wheezing. 0 Active Sodium Chloride 7 % NEBU Inhale into the lungs. 0 Active theophylline (UNIPHYL) 400 MG 24 hr tablet Take 1 tablet (400 mg total) by mouth daily. 0 Active azithromycin (ZITHROMAX) 250 MG tablet Take 1 tablet (250 mg total) by mouth. 0 Active aspirin EC 81 MG tablet Take 1 tablet (81 mg total) by mouth daily. 0 Active warfarin (COUMADIN) 5 MG tablet Take 1 tablet (5 mg total) by mouth daily. 0 Active dilTIAZem (CARDIZEM CD) 120 MG 24 hr capsule Take 1 capsule (120 mg total) by mouth daily. 0 Active atorvastatin (LIPITOR) tablet 20 mg Take 1 tablet (20 mg total) by mouth daily. 0 Active oxyCODONE HCl ER (OxyCONTIN) 10 MG T12A controlled release tablet Take 1 tablet (10 mg total) by mouth every 12 (twelve) hours. 0 Active oxyCODONE HCl (ROXICODONE) 10 MG TABS Take 0.5 tablets (5 mg total) by mouth every 6 (six) hours as needed for pain. 0 Active guaiFENesin (MUCINEX) 600 MG 12 hr tablet Take 2 tablets (1,200 mg total) by mouth 2 (two) times a day. 0 Active acetaminophen (TYLENOL EXTRA STRENGTH) 500 MG tablet Take 1 tablet (500 mg total) by mouth every 6 (six) hours as needed. 0 Active Calcium Citrate-Vitamin D (CALCIUM CITRATE +D PO) Take by mouth. 0 Active vitamin D3 (CHOLECALCIFEROL) 125 MCG (5000 UT) capsule Take 1 capsule (125 mcg total) by mouth daily. 0 Active Multiple Vitamins-Minerals (CENTRUM SILVER PO) Take by mouth. 0 A ctive sertraline (ZOLOFT) 50 MG tablet Take 1 tablet (50 mg total) by mouth daily. 0 Active DOXYCYCLINE HYCLATE PO Take by mouth. Pt unsure of dosage. 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?C (98.7 ??F) 01/02/2024 3:12 PM ED T Respiratory Rate - - Oxygen Saturation 96% 01/02/2024 3:12 PM EDT Inhaled Oxygen Concentration - - Weight 45.6 kg (100 lb 9.6 oz) 01/02/2024 3:12 P M EDT Height 162.6 cm (5' 4 ) 10/04/2023 3:32 PM EDT Body Mass Index 17.27 10/04/2023 3:32 PM EDT Plan of Treatment Health Maintenance Due Date Last Done Comments Hepatitis C Screening 1950 Depression Screening 1961 Preventative Health Evaluation 1967 Shingrix-Zoster Vaccine (1 o f 2) 02/15/1968 Colon Cancer Screening (Colonoscopy) 1994 DTap / Tdap / Td (1 - Tdap) 08/23/2013 08/22/2013 Fall Risk Assessment 2014 Pneumococcal Vaccine (3 of 3 - PCV) 03/03/2017 03/03/2016, 01/16/2014 COVID-19 Vaccine (3 - Pfizer risk series) 09/20/2020 08/23/2020, 08/01/2020 Influenza Vaccine (#1) 2023 , 05/16/2017, 03/03/2016 RSV Adult > 60+ Yrs or (1 - 1-dose 75+ series) 02/15/2024 Hepatitis B Vaccines Aged Out No long er eligible based on patient's age to complete this topic RSV Ped < 20 months Aged Out No longe r eligible based on patient's age to complete this topic Care Teams Stripper And Printer Relationship Specialty Start Date End Date Timoteo Escamilla MD [address] [place] [address] PCP - General Internal Medicine 02/23/22
--- OUTSIDE RECORDS SUMMARY | 2024-05-27 16:19 | XMS_ITS | Clinical Summary ---
Author Organization [facility] it Address [address] [place] [address] Care Team Providers Care Electron Tube Assembler Name Role Phone Timoteo Escamilla MD Primary Care Provider Allergies Active Allergy Reactions Criticality Noted Date Comments Ibuprofen 10/13/2022 Medications Medication Sig Dispensed Refills Start Date End Date Status acetaminophen (TYLENOL) 500 mg tablet Take 1 tablet (500 mg total) by mouth every 6 hours as needed. Active albuterol 1.25 mg/3 mL nebulizer solution Take 3 mL (1.25 mg total) by nebulization every 6 (six) hours as needed for wheezing. Active albuterol sulfate 90 mcg/actuation aerosol powdr breath activated Inhale into the lungs. Active aspirin 81 mg EC tablet Take 1 tablet (81 mg total) by mouth 1 (one) time each day. Active atorvastatin (LIPITOR) 20 mg tablet Take 1 tablet (20 mg total) by mouth 1 (one) time each day. Active azithromycin (ZITHROMAX) 250 mg tablet Take 1 tablet (250 mg total) by mouth. Active CALCIUM CITRATE-VITAMIN D2 ORAL Take by mouth. Active dilTIAZem CD (CARDIZEM CD) 120 mg 24 hr capsule Take 1 capsule (120 mg total) by mouth daily. Active DOXYCYCLINE HYCLATE ORAL Take by mouth. Pt unsure of dosage. Active fluticasone-salmeter ol (ADVAIR DISKUS) 250-50 mcg/dose diskus inhaler Inhale into the lungs. Active fluticasone-umeclidi nium-vilanterol (Trelegy Ellipta) 100-62.5-25 mcg inhaler Inhale into the lungs. Active guaiFENesin (MUCINEX) 600 mg 12 hr tablet Take 2 tablets (1,200 mg total) by mouth 2 (two) times a day. Active folic acid/multivit-min/madhav tein (CENTRUM SILVER ORAL) Take by mouth. Active oxyCODONE (ROXICODONE) 10 mg immediate release tablet Take 0.5 tablets (5 mg total) by mouth every 6 hours as needed. Max Daily Amount: 20 mg Active oxyCODONE (OxyCONTIN) 10 mg 12 hr abuse-deterrent tablet Take 1 tablet (10 mg total) by mouth every 12 (twelve) hours. Active sertraline (ZOLOFT) 50 mg tablet Take 1 tablet (50 mg total) by mouth 1 (one) time each day. Active sodium chloride 7 % solution for nebulization nebulizer solution Inhale into the lungs. Active theophylline (UNIPHYL) 400 mg 24 hr tablet Take 1 tablet (400 mg total) by mouth daily. Active warfarin (COUMADIN) 5 mg tablet Take 1 tablet (5 mg total) by mouth 1 (one) time each day. Active cholecalciferol (VITAMIN D-3) 125 mcg (5,000 unit) capsule Take 1 capsule (125 mcg total) by mouth daily. 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 Immunizations Name Administration Dates Next Due [employer] SARS-CoV-2 COVID-19, mRNA, LNP-S, preservative free 08/23/2020,08/01/2020 Social History Tobacco Use Types Packs/Day Years Used Date Smoking Tobacco: Never Assessed Sex and Gender Information Value Date Recorded Sex Assigned at Not on file Gender Identity Not on file Sexual Orientation Not on file Obstetrics History Last Filed Vital Signs Vital Sign Reading Time Taken Comments Blood Pressure 117/68 01/02/2024 3:12 PM EDT Sitting Left arm Pulse 105 01/02/2024 3:12 PM EDT Temperature - - Respiratory Rate - - Oxygen Saturation - - Inhaled Oxygen Concentration - - Weight 45.6 kg (100 lb 9.6 oz) 01/02/2024 3:12 PM EDT Height 162.6 cm (5' 4 ) 10/04/2023 3:32 PM EDT Body Mass Index 17.27 10/04/2023 3:32 PM EDT Plan of Treatment Upcoming Encounters Date Type Department Care Team (Late st Contact Info) Description 07/03/2024 3:00 PM EDT Office Visit [facility] Hematology Oncology [address] [place] [address] Casey Llanes MD [address] [place] [phone] Health Maintenance Due Date Last Done Comments Pneumococcal Vaccine: 65+ Years (1 of 2 - PCV) 1955 DTaP,Tdap,and Td Vaccines (1 - Tdap) 02/15/1968 Zoster Vaccines (1 of 2) 02/15/1968 COVID-19 Vaccine (3 - Pfizer risk series) 09/20/2020 08/23/2020, 08/01/2020 Abdominal Aortic Aneurysm (AAA) Screen 03/27/2022 Cholesterol Screening (Lipid Panel) 03/27/2022 Colorectal Cancer Screening: Colonoscopy 03/27/2022 Depression Screening 03/27/2022 Falls Risk Assessment 03/27/2022 Hepatitis C Screening 03/27/2022 Medicare Annual Wellness Visit 03/27/2022 Social Influencers of Health Screening 03/27/2022 Influenza Vaccine (#1) 2023 RSV Immunization Patients 60 + Years Old (1 - 1-dose 75+ series) 02/15/2024 HIB Vaccines Aged Out No longer eligi ble based on patient's age to complete this topic HPV Vaccines Aged Out No longer eligi ble based on patient's age to complete this topic Hepatitis A Vaccines Aged Out No long er eligible based on patient's age to complete this topic Hepatitis B Vaccines Aged Out No long er eligible based on patient's age to complete this topic IPV Vaccines Aged Out No longer eligi ble based on patient's age to complete this topic MMR Vaccines Aged Out No longer eligi ble based on patient's age to complete this topic Meningococcal ACWY Vaccine Aged Out N o longer eligible based on patient's age to complete this topic RSV Immunization Patients Under 20 months Aged Out No longer eligible b ased on patient's age to complete this topic Varicella Vaccines Aged Out No longer eligible based on patient's age to complete this topic Care Teams Electron Tube Assembler Relationship Specialty Start Date End Date Timoteo Escamilla MD [address] [place] [id number] PCP - General 02/23/22
== END 2024-05-27 15:29 | disposition home or self-care (01) ==
LOC: HO.ACS 14:44
PROVIDERS: PCP Hospitalist; Visit Provider Internal Medicine
DX: Z79.01 Long term (current) use of anticoagulants (principal)

== ENCOUNTER → 2024-05-27 14:44 | Outpatient (BNVA) | payer MEDICARE, SELFPAY | PROVIDERS: PCP Hospitalist; Visit Provider Internal Medicine | DX: Z86.73 Personal history of transient ischemic attack (TIA), and cerebral infarction without residual deficits (principal); Z79.01 Long term (current) use of anticoagulants; Z51.81 Encounter for therapeutic drug level monitoring | CPT/HCPCS: 85610; 99211 ==

== ENCOUNTER 2024-05-31 14:20 | Outpatient (AMB) | payer MEDICARE, SELFPAY ==
[2024-05-31 14:59] LABS: Prothrombin Time Whole Bld POC 23.6 sec (11.1-13.5)
--- NOTE | 2024-05-31 15:07 | MHC.OFFVISCO ---
Intake Intake Visit Reasons: Anticoagulation Allergies bupropion [From Wellbutrin] Allergy (Intermediate, Verified 05/31/24 14:53) Nausea levofloxacin [From LEVAQUIN] Allergy (Intermediate, Verified 05/31/24 14:53) GI UPSET/ WEIGHT LOSS, anaphylaxis sulfamethoxazole [From Bactrim] Allergy (Intermediate, Verified 05/31/24 14:53) rash trimethoprim [From Bactrim] Allergy (Intermediate, Verified 05/31/24 14:53) rash ibuprofen Allergy (Mild, Verified 05/31/24 14:53) GI DISTRESS Medication List - Last Reconciled 05/31/24 by Cherrie Parker RN acetaminophen 500 mg PO Q6H PRN albuterol sulfate 90 mcg/actuation 1 inh PO Q4H PRN albuterol sulfate 90 mcg/actuation 2 puffs PO Q6H PRN albuterol sulfate 2.5 mg (3 mL) continuous nebulization QID PRN aspirin 81 mg PO DAILY atorvastatin 20 mg PO DAILY calcium citrate 500 mg (2 x 250 mg calcium) PO BID 90 days carvedilol 3.125 mg PO BID cholecalciferol (vitamin D3) 100 mcg (2 x 50 mcg (2,000 unit)) PO DAILY 90 days cranberry fruit concentrate (Azo Cranberry) PO PRN diltiazem HCl 120 mg PO BID doxycycline hyclate 100 mg PO Q24H enoxaparin mg See Protocol subcut [ENSURE / BOOST PO DAILY] [id number] 100-62.5-25 mcg (Trelegy Ellipta) 1 inh inhalation DAILY 30 days nebulizers As directed oxycodone 10 mg PO Q6H oxycodone ER (OxyContin) 10 mg PO BID Oxygen Home Use As directed [probiotics PO] sertraline 25 mg PO DAILY simethicone (Gas Relief (simethicone)) 160 mg (2 x 80 mg) PO TID PRN 30 days sodium chloride 7% 4 mL inhalation BID theophylline ER 400 mg PO DAILY warfarin 2.5 mg See Protocol PO DAILY Nursing Note INR: 2.0 in therapeutic range Medications and supplements reviewed S/P COLONOSCOPY 05/22/24 WITH POLYPECTOMY - INR VALUES TEND TO RUN LOW 1-2 WEEKS POST PROCEDURE INR WAS ABOVE RANGE PRIOR Denies any signs and symptoms of bleeding or bruising or clotting. Bleeding, bruising, clotting discussed Nutritional guidance given Dose: KEEP SAME DOSE FOR NOW F/U INR: 2 WEEKS Patient verbalizes understanding of instructions given WITH READ BACK Anti-Coag Initial Assessment Social Hx Patient Tobacco Use Status: Former Tobacco user Tobacco use type: Cigarette Alcohol intake frequency: does not drink Coding Level of Care Code Est Patient Level 1 Diagnoses Current use of anticoagulant therapy Z79.01 Results AMB INR Fingerstick AMB INR Fingerstick 2.0 Last Edit by Cherrie Parker RN on 05/31/24 15:01 MANUAL ENTRY Assessment & Plan Assessment & Plan (1) Current use of anticoagulant therapy: Code(s): Z79.01 - snf (current) use of 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
== END 2024-05-31 15:10 | disposition home or self-care (01) ==
LOC: HO.ACS 14:20
PROVIDERS: PCP Hospitalist; Visit Provider Internal Medicine
DX: Z79.01 Long term (current) use of anticoagulants (principal)

== ENCOUNTER → 2024-05-31 14:20 | Outpatient (BNVA) | payer MEDICARE, SELFPAY | PROVIDERS: PCP Hospitalist; Visit Provider Internal Medicine | DX: Z86.73 Personal history of transient ischemic attack (TIA), and cerebral infarction without residual deficits (principal); Z79.01 Long term (current) use of anticoagulants; Z51.81 Encounter for therapeutic drug level monitoring | CPT/HCPCS: 85610; 99211 ==

== ENCOUNTER 2024-06-14 14:32 | Outpatient (AMB) | payer MEDICARE, SELFPAY ==
[2024-06-14 14:41] LABS: Prothrombin Time Whole Bld POC 40.8 sec (11.1-13.5); ~PT, ~INR - Anti Coag Clinic 3.4 (0.9-1.1)
--- NOTE | 2024-06-14 14:52 | MHC.OFFVISCO ---
Intake Intake Visit Reasons: Anticoagulation Allergies bupropion [From Wellbutrin] Allergy (Intermediate, Verified 06/14/24 14:34) Nausea levofloxacin [From LEVAQUIN] Allergy (Intermediate, Verified 06/14/24 14:34) GI UPSET/ WEIGHT LOSS, anaphylaxis sulfamethoxazole [From Bactrim] Allergy (Intermediate, Verified 06/14/24 14:34) rash trimethoprim [From Bactrim] Allergy (Intermediate, Verified 06/14/24 14:34) rash ibuprofen Allergy (Mild, Verified 06/14/24 14:34) GI DISTRESS Medication List - Last Reconciled 06/14/24 by Mira Hurt, BLUE acetaminophen 500 mg PO Q6H PRN albuterol sulfate 90 mcg/actuation 1 inh PO Q4H PRN albuterol sulfate 90 mcg/actuation 2 puffs PO Q6H PRN albuterol sulfate 2.5 mg (3 mL) continuous nebulization QID PRN aspirin 81 mg PO DAILY atorvastatin 20 mg PO DAILY calcium citrate 500 mg (2 x 250 mg calcium) PO BID 90 days carvedilol 3.125 mg PO BID cholecalciferol (vitamin D3) 100 mcg (2 x 50 mcg (2,000 unit)) PO DAILY 90 days cranberry fruit concentrate (Azo Cranberry) PO PRN diltiazem HCl 120 mg PO BID doxycycline hyclate 100 mg PO Q24H enoxaparin mg See Protocol subcut [ENSURE / BOOST PO DAILY] [id number] 100-62.5-25 mcg (Trelegy Ellipta) 1 inh inhalation DAILY 30 days nebulizers As directed oxycodone 10 mg PO Q6H oxycodone ER (OxyContin) 10 mg PO BID Oxygen Home Use As directed [probiotics PO] sertraline 25 mg PO DAILY simethicone (Gas Relief (simethicone)) 160 mg (2 x 80 mg) PO TID PRN 30 days sodium chloride 7% 4 mL inhalation BID theophylline ER 400 mg PO DAILY warfarin 2.5 mg See Protocol PO DAILY Nursing Note INR: 3.4?out of therapeutic range of 2-3 Medications and supplements reviewed Patient status: no changes Medications or supplements: no changes Diet: usual diet for pt Denies any signs and symptoms of bleeding or clotting or unusual bruising Bleeding, bruising, clotting discussed Nutritional guidance given: to have a serving of greens today Dose: hold today's dose then 2.5mg X 5 days and 3.75mg X 2 days F/U INR Date : 3 weeks Patient verbalizing understanding of instructions given. Anti-Coag Initial Assessment Social Hx Patient Tobacco Use Status: Former Tobacco user Tobacco use type: Cigarette Alcohol intake frequency: does not drink Coding Level of Care Code Est Patient Level 1 Diagnoses Current use of anticoagulant therapy Z79.01 Results AMB INR Fingerstick AMB INR Fingerstick 3.4 Last Edit by Mira Hurt RN on 06/14/24 14:40 interface delay Assessment & Plan Assessment & Plan (1) Current use of anticoagulant therapy: Code(s): Z79.01 - supervisor intermediates (current) use of 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
--- OUTSIDE RECORDS SUMMARY | 2024-06-14 14:52 | XMS_ITS | Clinical Summary ---
Author Organization [facility] Address [address] [place] [address] Care Team Providers Care Aperture Mask Etcher Name Role Phone Timoteo Escamilla MD Primary Care Provider [phone] Allergies Active Allergy Reactions Criticality Noted Date [...] age to complete this topic Care Teams Aperture Mask Etcher Relationship Specialty Start Date End Date Timoteo Escamilla MD [address] [place] [address] PCP - General Internal Medicine 02/23/22
--- OUTSIDE RECORDS SUMMARY | 2024-06-14 14:52 | XMS_ITS ---
Author Organization [facility] Address [address] [facility] [address] [place] [address] Care Team Providers Care Tree Surgeon Helper Name Role Phone CYN FAJARDO Primary Care Provider Olga Sarabia Unavailable [phone] Allergies Allergen (clinical drug ingredient) Drug/Non Drug Allergy documented on EMR Reaction Allergy Type Onset Date Status amoxicillin / clavulanate Augmentin hives Drug Allergy Active levofloxacin Levofloxacin anaphylaxis Drug Allergy Active Motrin Unknown Drug Allergy Active Wellbutrin Unknown Drug Allergy Active REASON FOR VISIT Colonoscopy result Medications Medication SIG (Take, Route, Frequency, Duration) Notes Start Date End Date Status fentaNYL 12 MCG/HR 1 patch to skin Transdermal PSSP Not-Taking Pepto-Bismol As needed Not-Andres ing Metoprolol Tartrate 25 MG 1 tablet with food Orally Twice a day for 90 Not-Taking Enoxaparin Sodium 60 MG/0.6ML as directed Subcutaneous twice daily for 5 days 09/05/2018 Not-Taking Anoro Ellipta 62.5-25 MCG/INH 1 puff Inhalation Once a day Not-Taking predniSONE 20 MG as directed Orally Once a day for 30 days 01/07/2021 Not-Takin g Zofran 4 MG 1 tablet Orally bid as needed for 14 days 05/17/2019 Not-Taking predniSONE 20 MG 1 tablet Orally Once a day for 7 days 04/28/2023 Not-Taking Amoxicillin 500 MG 1 capsule Orally valentin ry 8 hrs for 5 days 05/12/2023 Not-Taking Testim 50 MG/5GM (1%) 1 packet to skin i n the morning Transdermal Once a day for 30 days 08/11/2021 Not-Taking Carvedilol 3.125 MG TAKE 1 TABLET BY GILBERT TH TWICE DAILY WITH FOOD for 30 Active Mesalamine 800 MG 1 tablet Orally twic e a day Not-Taking Dicyclomine HCl 10 MG 1-2 capsules Orall y every 4-6 hours Not-Taking Megestrol Acetate 40 MG 1 tablet Orally Once a day for 30 days 02/24/2023 Not-Taking Benzonatate 100 MG 1 capsule as needed Orally Three times a day for 7 days 04/28/2023 Not-Taking Sertraline HCl 25 MG TAKE 2 TABLETS BY MOUTH EVERY DAY for 30 Active Warfarin Sodium 2.5 MG TAKE 1 TABLET BY MOUTH EVERY DAY for 90 Active ProAir RespiClick 108 (90 Base) MCG/ACT 1-2 puff as needed Inhalation every 4 hrs for 30 days Active dilTIAZem HCl 120 MG TAKE 1 TABLET BY MO NVH TWICE DAILY DIRECTED for 54 Active Lovenox 60 MG/0.6ML 60 mg Injection daily for 5 days take it every day in the morning subcutaneous. Do not take on the day of procedure 08/11/2023 Active ProAir HFA 108 (90 Base) MCG/ACT 2 puffs as needed Inhalation every 6 hrs for 30 days Active Cardizem CD 240 MG 1 capsule Orally Onc e a day Active Azithromycin 250 MG 1 tablet Orally 2 tablets on the first day, then 1 tablet daily for 5 days 04/28/2023 Active Centrum Silver - as directed Orally o ne daily Active oxyCODONE HCl 15 MG 1 tablet Orally ever y 6 hrs PSSP Active Mucinex 600 MG 1 tablet as needed Orally every 12 hrs Active Atorvastatin Calcium 40 MG 1 tablet Orally Once a day Active Trelegy Ellipta 100-62.5-25 MCG/INH 1 puff Inhalation Once a day Active Calcium Citrate 250 MG 1 tablet Orally O nce a day Active Vitamin D2 2000 UNIT 1 tablet Orally Onc e a day Active Doxycycline Active Theophylline ER 400 MG 1 tablet Orally O nce a day Active Vital Signs Temperature 97.6 degrees Fahrenheit 06/04/19 25 Oximetry 96 % 06/04/2024 Heart Rate 98 /min 06/04/2024 Blood pressure systolic 120 mm Hg 06/04/19 25 Blood pressure diastolic 70 mm Hg 025 Weight 102.2 lbs 06/04/2024 BMI 17.01 kg/m2 06/04/2024 Height 65 in 06/04/2024 Encounters Encounter Location Date Provider Diagnosis [facility] [address] [facility] [address] [place] [address] 06/04/2024 Olga Sarabia Plan Of Treatment Next Appt Details Follow Up: next appt, Reason : Provider Name:Olga saldivar, 06/25/2024 03:15:00 PM, [address] [facility] [address], [place], [address], Provider Name:Olga saldivar, 07/25/2024 03:30:00 PM, [address] [place] [address] [address], [place], [address], Progress Notes * Dirk MOMINDOB: [birth year] (74 yo M)Acc No.[id number]:06/04/2024 Progress Notes Patient:?Dirk MOIMN Provider:?Olga Sarabia :1950???Age:74 Y???Sex:Male Gabe e:06/04/2024 Phone: Address:[address] [place] [address] , [facility], [id number] Pcp:CYN FAJARDO Subjective: * Chief Complaints: * ???1. Colonoscopy result. * HPI: ???Internal Medicine:? Mr. Momin is a 73-year-old gentleman with hypertension, hyperlipidemia, COPD, low testosterone, AAA, cervical radiculopathy, atrial fibrillation and status post lung cancer and resection of the right upper lobe here for annual wellness visit. He is in his usual state of health. Vision and hearing are stable. No systemic or constitutional symptoms. Neurocognitive functions intact. He is physically active. His weight is stable. He has exertional shortness of breath. No history of fall. He does not need help with ADLs and IADLs. Mood stable on current regimen. He sleeps well, appetite is good. No GI or symptoms. He denies any other active issues or concerns. * ROS:?General/Constitutional:?Overall health?Cachetic and protein calorie malnutrition.?Change in appetite?denies.?Chills?denies.?Fever?denies.?Night sweats?denies.?Sleep disturbance?denies.?Weight gain?denies.?Weight loss?denies.?Neurologic:?Difficulty speaking?denies.?Dizziness?denies.?Gait abnormality?denies.?Headache?denies.?Loss of strength?denies.?Memory loss?denies.?Seizures?denies.?Tingling/Numbness?denies ?.?Ophthalmologic:?Blurred vision?denies.?Discharge?denies.?Dry eye?denies.?Red eye?denies.?ENT:?Change in Voice?Denies.?Cold Symptoms?Denies.?Cough?, Admits.?Dizziness?Denies.?Nasal Congestion?Denies.?Otalgia?Denies.?postnasal drip?Denies.?Blocked ear?denies.?Nosebleed?denies.?Snoring?denies.?Cardiovascular:?Diaphoresis?Denies.?Pedal Edema?Denies.?PND (Paroxsymal nocturnal dyspnea)?Denies.?Chest pain?denies.?Difficulty laying flat?denies.?Dyspnea on exertion?denies.?Heart murmur?denies.?Orthopnea?denies.?Respiratory:?Snoring?denies.?Asthma?denies.?Cough?, admits.?Shortness of breath with exertion?denies.?Sputum production?denies.?Wheezing?denies.?Gastrointestinal:?Change in bowel habits?denies.?Constipation?denies.?Decreased appetite?denies.?Diarrhea?denies.?Heartburn?denies.?Nausea?denies.?Vomiting?srinivasan es.?Musculoskeletal:?tingling/numbness?Denies.?myalgias?Denies.?Joint Swelling?Denies.?extremeties?normal.?Arthritis?denies.?Back problems?denies.?Carpal tunnel?denies.?Joint stiffness?denies.?Muscle aches?denies.?Endocrine:?Bowel Changes?Denies.?Breast Discharge?Denies.?poor libido?Denies.?Cold intolerance?denies.?Excessive sweating?denies.?Excessive thirst?denies.?Frequent urination?denies.?Thyroid problems?denies.?Skin:?Bruising?Denies.?Eczema?denies.?Hair changes?denies.?Rash?denies.?Skin lesion(s)?denies.?Psychiatric:?Anxiety?,admits.?Depressed mood?denies.?Difficulty sleeping?denies.?Nervous breakdown?denies.?Substance abuse?denies.?Urology:?blood in urine?denies.?burning on urination?denies.?difficulty urinating?denies.?discharge?denies.?dysuria?denies.? * Medical History:?Essential ( primary) hypertension, Hyperlipidemia, unspecified, COPD and he sees Dr. Jhaveri, Low testosterone levels and he sees Dr. 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 He is currently on Coumadin monitored by Coumadin clinic at [facility] [place] [place]., Pulmonary nodule right lung. Positive on PET scan and planning to have resection by at [facility], Small bowel obstruction and status post resection and he sees Dr. Barr., Cervical radiculopathy and he follows with [facility] spine and sports and is on narcotics, Smokes marijuana for appetite, A Fib see Dr Bazzi, Personal history of COVID-19, S/P Pasturella infection. * Medications:?Taking Doxycycl ine , Taking Theophylline ER 400 MG Tablet Extended Release 24 Hour 1 tablet Orally Once a day , Taking Mucinex 600 MG Tablet Extended Release 12 Hour 1 tablet as needed Orally every 12 hrs , Taking Atorvastatin Calcium 40 MG Tablet 1 tablet Orally Once a day , Taking Trelegy Ellipta 100-62.5-25 MCG/INH Aerosol Powder Breath Activated 1 puff Inhalation Once a day , Taking Calcium Citrate 250 MG Tablet 1 tablet Orally Once a day , Taking Vitamin D2 2000 UNIT Tablet 1 tablet Orally Once a day , Taking Centrum Silver - Tablet as directed Orally one daily , Taking oxyCODONE HCl 15 MG Tablet 1 tablet Orally every 6 hrs , Notes to Pharmacist: PSSP, Taking ProAir HFA 108 (90 Base) MCG/ACT Aerosol Solution 2 puffs as needed Inhalation every 6 hrs , Taking Cardizem CD 240 MG Capsule Extended Release 24 Hour 1 capsule Orally Once a day , Taking Azithromycin 250 MG Tablet 1 tablet Orally 2 tablets on the first day, then 1 tablet daily , Taking Sertraline HCl 25 MG Tablet TAKE 2 TABLETS BY MOUTH EVERY DAY , Taking Warfarin Sodium 2.5 MG Tablet TAKE 1 TABLET BY MOUTH EVERY DAY , Taking ProAir RespiClick 108 (90 Base) MCG/ACT Aerosol Powder Breath Activated 1-2 puff as needed Inhalation every 4 hrs , Taking dilTIAZem HCl 120 MG Tablet TAKE 1 TABLET BY MOUTH TWICE DAILY DIRECTED , Taking Lovenox 60 MG/0.6ML Solution Prefilled Syringe 60 mg Injection daily take it every day in the morning subcutaneous. Do not take on the day of procedure, Taking Carvedilol 3.125 MG Tablet TAKE 1 TABLET BY MOUTH TWICE DAILY WITH FOOD , Not-Taking Mesalamine 800 MG Tablet Delayed Release 1 tablet Orally twice a day , Not-Taking Dicyclomine HCl 10 MG Capsule 1-2 capsules Orally every 4-6 hours , Not-Taking Megestrol Acetate 40 MG Tablet 1 tablet Orally Once a day , Not-Taking Benzonatate 100 MG Capsule 1 capsule as needed Orally Three times a day , Not-Taking predniSONE 20 MG Tablet 1 tablet Orally Once a day , Not-Taking Amoxicillin 500 MG Capsule 1 capsule Orally every 8 hrs , Not-Taking Testim 50 MG/5GM (1%) Gel 1 packet to skin in the morning Transdermal Once a day , Not-Taking predniSONE 20 MG Tablet as directed Orally Once a day , Not-Taking Zofran 4 MG Tablet 1 tablet Orally bid as needed , Not-Taking fentaNYL 12 MCG/HR Patch 72 Hour 1 patch to skin Transdermal , Notes to Pharmacist: PSSP, Not-Taking Pepto-Bismol , Notes to Pharmacist: As needed, Not-Taking Metoprolol Tartrate 25 MG Tablet 1 tablet with food Orally Twice a day , Not-Taking Enoxaparin Sodium 60 MG/0.6ML Solution as directed Subcutaneous twice daily , Not-Taking Anoro Ellipta 62.5-25 MCG/INH Aerosol Powder Breath Activated 1 puff Inhalation Once a day , Medication List reviewed and reconciled with the patient * Allergies:?Levofloxacin: carolyn phylaxis - Allergy, Motrin: Allergy, Wellbutrin: Allergy, Augmentin: hives - Side Effects. Objective: * Vitals:?Temp:97.6F, Oxygen s at %:96%, HR:98/min, BP:120/70mm Hg, Wt:102.2lbs, BMI:17.01Index, Ht: 65 in. * Examination: ???General Examination: ?Psychiatry?Normal.?GENERAL APPEARANCE:?Well developed, well nourished, in no acute distress.?MUSCULOSKELETAL:?atrophy of interosseous muscles.?HEAD:?Normocephalic, atraumatic.?EYES:?Pupils equal, round, reactive to light and accommodation, sclera non-icteric.?EARS:?Normal.?ORAL CAVITY:?dentures.?THROAT:?Clear.?OROPHARYNX?Normal.?SINUSES?Normal.?NECK/THYROID:?Neck supple, full range of motion, no cervical lymphadenopathy.?SKIN:?Warm and dry, no suspicious lesions.?HEART:?Normal.?LUNGS:?Mild scattered inspiratory wheezes.?BREASTS:?__.?ABDOMEN:?Soft, nontender, nondistended, bowel sounds present,small umbilical hernia.?EXTREMITIES:?Normal.?PERIPHERAL PULSES:?Normal.?NEUROLOGIC:?Nonfocal,? 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 .? Assessment: Plan: * Treatment: * Follow Up:?next appt * * Electronic signature of Marty Sarabia PA-C on 06/14/2024 at 02:52 PM EST Sign off status: Pending * Provider:?Olga Sarabia Date:?06/04/19 Generated for Radha carbajal/Lalo/eTishan on:?06/14/2024 02:52 PM EST History and Physical Notes * HPI (History of Present Illness) Category Sub-Category Detail Notes Category Not es Internal Medicine Mr. Óscar younger is a 73-year-old gentleman with hypertension, hyperlipidemia, COPD, low testosterone, AAA, cervical radiculopathy, atrial fibrillation and status post lung cancer and resection of the right upper lobe here for annual wellness visit. He is in his usual state of health. Vision and hearing are stable. No systemic or constitutional symptoms. Neurocognitive functions intact. He is physically active. His weight is stable. He has exertional shortness of breath. No history of fall. He does not need help with ADLs and IADLs. Mood stable on current regimen. He sleeps well, appetite is good. No GI or symptoms. He denies any other active issues or concerns. Examination Category Sub-Category Detail Notes Category Not es General Examination GENERAL APPEARANCE: Well dev eloped, well nourished, in no acute distress HEAD: Normocephalic, atrau matic EYES: Pupils equal, round, reactive to light and accommodation, sclera non-icteric EARS: Normal THROAT: Clear NECK/THYROID: Neck supple, full ra nge of motion, no cervical lymphadenopathy HEART: Normal LUNGS: Mild scattered inspi ratory wheezes ABDOMEN: Soft, nontender, non distended, bowel sounds present, small umbilical hernia NEUROLOGIC: Nonfocal, appropriat e motor strength normal upper and lower extremities, sensory exam intact SKIN: Warm and dry, no flip picious lesions EXTREMITIES: Normal PERIPHERAL PULSES: Normal BREASTS: __ MUSCULOSKELETAL: atrophy of interosse ous muscles MALE GENITOURINARY: __ FEMALE GENITOURINARY: __ ORAL CAVITY: dentures PODIATRIC: Normal Psychiatry Normal OROPHARYNX Normal 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
--- OUTSIDE RECORDS SUMMARY | 2024-06-14 14:53 | XMS_ITS | Patient Health Record ---
Author Organization [facility] Address [address] [place] [address] Care Team Providers Care Services Program Manager Name Role Phone CYN FAJARDO Primary Care Provider Olga Sarabia Unavailable [phone] Allergies Allergen (clinical drug ingredient) Drug/Non Drug Allergy documented on EMR Reaction Allergy Type Onset Date Status amoxicillin / clavulanate Augmentin hives Drug Allergy Active levofloxacin Levofloxacin anaphylaxis Drug Allergy Active Motrin Unknown Drug Allergy Active Wellbutrin Unknown Drug Allergy Active Results Component Value Reference Range Notes Albumin/Creatinine Ratio,Uri ne-[id number] Reviewed date:10/05/2023 03:44:33 PM Interpretation: Performing Lab:[facility] [place], [address] [facility], Phone - [phone], Director - MDJodry Notes/Report: Creatinine, Urine 115.9 Not Estab. mg/dL Albumin, Urine 9.3 Not Estab. ug/mL Alb/Creat Ratio 8 0-29 mg/g creat Normal: 0 - 29 Moderately increased: 30 - 300 Severely increased: >300 CBC, Platelet, No Differenti al-[id number] Reviewed date:10/10/2023 11:50:09 AM Interpretation: Performing Lab:[facility] [place], [address] [place], [place], Phone - [phone], Director - Lexxdry Notes/Report: WBC 9.6 3.4-10.8 x10E3/uL RBC 3.95 4.14-5.80 x10E6/uL Hemoglobin 11.3 13.0-17.7 g/dL Hematocrit 36.1 37.5-51.0 % MCV 91 79-97 fL MCH 28.6 26.6-33.0 pg MCHC 31.3 31.5-35.7 g/dL RDW 15.7 11.6-15.4 % Platelets 224 150-450 x10E3/uL Lipid Panel-[id number] Reviewed date:10/10/2023 11:50:12 AM Interpretation: Performing Lab:[facility] [place], [address] [place] [address], Phone - [phone], Director - MDRobertay Notes/Report: Cholesterol, Total 179 100-199 mg/dL Triglycerides 82 0-149 mg/dL HDL Cholesterol 73 >39 mg/dL VLDL Cholesterol Huan 15 5-40 mg/dL LDL Chol Calc (NIH) 91 0-99 mg/dL Comp. Metabolic Panel ([id number] Reviewed date:10/10/2023 11:50:15 AM Interpretation: Performing Lab:[facility] [place], [address] [place] [address], Phone - [phone], Director - Fabio Notes/Report: Glucose 95 70-99 mg/dL BUN 11 8-27 mg/dL Creatinine 0.82 0.76-1.27 mg/dL eGFR 92 >59 mL/min/1.73 BUN/Creatinine Ratio 13 10-24 Sodium 139 134-144 mmol/L Potassium 4.1 3.5-5.2 mmol/L Chloride 102 96-106 mmol/L Carbon Dioxide, Total 21 20-29 mmol/L Calcium 9.1 8.6-10.2 mg/dL Protein, Total 6.0 6.0-8.5 g/dL Albumin 3.6 3.8-4.8 g/dL Globulin, Total 2.4 1.5-4.5 g/dL A/G Ratio 1.5 Bilirubin, Total 0.2 0.0-1.2 mg/dL Alkaline Phosphatase 73 44-121 IU/L AST (SGOT) 13 0-40 IU/L ALT (SGPT) 8 0-44 IU/L Albumin/Creatinine Ratio,Uri ne-[id number] Reviewed date:10/10/2023 11:50:18 AM Interpretation: Performing Lab:[facility] [place], [address] [place] [address], Phone - [phone], Director - Fabio Notes/Report: Creatinine, Urine TNP Please refer to the following specimen for additional lab results. REF-[id number] Albumin, Urine TNP Test not perf ormed Request Problem TNP Please refer to the following specimen for additional lab results. TEST: [id number] Albumin/Creatinine Ratio,Urine REF-[id number] Reason For Referral Reason Evaluation and treat ment Diagnosis 1 Other specified dise ases of intestine (K63.89) Referral Organization [facility] Referring Provider First Name CYN Referring Provider Last Name SCOTTY Referring Provider Speciality Internal M edicine Referred Provider Specialty Gastroentero logy General Notes Referral faxed to Vicky Vargas Kayla 08/10/2023 03:58:21 PM > Referral Priority Routine Medications Medication SIG (Take, Route, Frequency, Duration) Notes Start Date End Date Status ProAir HFA 108 (90 Base) MCG/ACT 2 puffs as needed Inhalation every 6 hrs for 30 days Active Cardizem CD 240 MG 1 capsule Orally Onc e a day Active Azithromycin 250 MG 1 tablet Orally 2 tablets on the first day, then 1 tablet daily for 5 days 04/28/2023 Active Sertraline HCl 25 MG TAKE 2 TABLETS BY MOUTH EVERY DAY for 30 Active Warfarin Sodium 2.5 MG TAKE 1 TABLET BY MOUTH EVERY DAY for 90 Active ProAir RespiClick 108 (90 Base) MCG/ACT 1-2 puff as needed Inhalation every 4 hrs for 30 days Active dilTIAZem HCl 120 MG TAKE 1 TABLET BY [facility] TWICE DAILY DIRECTED for 54 Active Lovenox 60 MG/0.6ML 60 mg Injection daily for 5 days take it every day in the morning subcutaneous. Do not take on the day of procedure 08/11/2023 Active fentaNYL 12 MCG/HR 1 patch to skin [...] as needed for 14 days 05/17/2019 Not-Taking Centrum Silver - as directed Orally o ne daily Active oxyCODONE HCl 15 MG 1 tablet Orally ever y 6 hrs PSSP Active Doxycycline Active Theophylline ER 400 MG 1 tablet Orally O nce a day Active Mucinex 600 MG 1 tablet as needed Orally every 12 hrs Active Atorvastatin Calcium 40 MG 1 tablet Orally Once a day Active Trelegy Ellipta 100-62.5-25 MCG/INH 1 puff Inhalation Once a day Active Calcium Citrate 250 MG 1 tablet Orally O nce a day Active Vitamin D2 2000 UNIT 1 tablet Orally Onc e a day Active Carvedilol 3.125 MG TAKE 1 TABLET BY TWICE DAILY WITH FOOD for 30 Active Mesalamine 800 MG 1 tablet Orally twic e a day Not-Taking Dicyclomine HCl 10 MG 1-2 capsules Orall y every 4-6 hours Not-Taking Megestrol Acetate 40 MG 1 tablet Orally Once a day for 30 days 02/24/2023 Not-Taking Benzonatate 100 MG 1 capsule as needed Orally Three times a day for 7 days 04/28/2023 Not-Taking predniSONE 20 MG 1 tablet Orally Once a day for 7 days 04/28/2023 Not-Taking Amoxicillin 500 MG 1 capsule Orally valentin ry 8 hrs for 5 days 05/12/2023 Not-Taking Testim 50 MG/5GM (1%) 1 packet to skin i n the morning Transdermal Once a day for 30 days 08/11/2021 Not-Taking Immunizations Vaccine Route Administration Date Status Comme nts Flu High-Dose IM Intramuscular 02/24/2023 Administered High Dose Fluzone +65 IM Intramuscular 03/23/2022 Administ ered Influenza, high dose seasonal Unknown 05/16/2017 Administered Influenza, high dose seasonal IM Intramuscular 01/28/2019 Administered Pneumococcal polysaccharide PPV23 Unknown 01/16/2014 Administered Pneumococcal polysaccharide PPV23 Unknown 03/03/2016 Administered Td (adult), absorbed Unknown 08/30/2013 Administered Social History Tobacco Use: Social History Observation Description Date Details (start date - stop date) Former Smoker NA - NA Tobacco Use/Smoking Question Answer Notes Are you a former smoker Alcohol Screen (Audit-C) Question Answer Notes Did you have a drink containing alcohol in the p ast year? 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 Problem Generalized anxiety disorder (98815235) Generalized anxiety disorder (F41.1) Active confirmed Problem Atrial fibrillation (30419542) Unspecified atrial fibrillation (I48.91) Active confirmed Problem Cerebral infarction (500709570) Cerebral infarction, unspecified (I63.9) Active confirmed Problem Occlusion and stenosis of multiple and bilateral cerebral arteries (440941577) 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81) Active confirmed Problem Solitary pulmonary nodule (174814255) Solitary pulmonary nodule (R91.1) Active confirmed Problem History of excision of intestinal structure (279242060) Acquired absence of other specified parts of digestive tract (Z90.49) Active confirmed Problem Abdominal aortic aneurysm without rupture (79140610) Abdominal aortic aneurysm, without rupture (I71.4) Active confirmed Problem Essential hypertension (04426461) Essential (primary) hypertension (I10) Active confirmed Problem Intestinal obstruction (83483461) Unspecified intestinal obstruction, unspecified as to partial versus complete obstruction (K56.609) Active confirmed Problem History of disease caused by Severe acute respiratory syndrome coronavirus 2 (situation) (0857070287305679 05) Personal history of COVID-19 (Z86.16) Active confirmed Vital Signs Heart Rate 98 /min 06/04/2024 Temperature 97.6 degrees Fahrenheit 06/04/2024 Blood pressure diastolic 70 mm Hg 06/04/2024 Oximetry 96 % 06/04/2024 Height 65 in 06/04/2024 Blood pressure systolic 120 mm Hg 06/04/2024 Weight 102.2 lbs 06/04/2024 BMI 17.01 kg/m2 06/04/2024 Encounters Encounter Location Date Provider Diagnosis [facility] [address] [place] [address] [facility] [address] [place] [address] 09/06/2023 CYN ODOM Chronic obstructive pulmonary disease, unspecified J44.9 ; Essential (primary) hypertension I10 ; Unspecified atrial fibrillation I48.91 ; Cerebral infarction, unspecified I63.9 and Urinary calculus, unspecified N20.9 [facility] [address] [place] [address] 01/08/2024 ADDISON GU Essential (primary) hypertension I10 ; Encounter for general adult medical examination without abnormal findings Z00.00 ; Chronic obstructive pulmonary disease, unspecified J44.9 ; Malignant neoplasm of unspecified part of unspecified bronchus or lung C34.90 ; Unspecified atrial fibrillation I48.91 and Impaired fasting glucose R73.[address] [place] [address] 07/11/[address] [place] [address] 07/18/[address] [place] [address] 07/28/[address] [place] [address] 08/07/[address] [place] [address] 08/09/[address] [place] [address] 08/10/[address] [place] [address] 08/11/[address] [place] [address] 08/17/2023 [facility] [address] [place] [address] 08/25/2023 [facility] [address] [facility] [place] [address] 09/25/2023 [facility] [address] [place] [address] 10/24/2023 [facility] [address] [place] [address] 12/21/2023 [facility] [address] [place] [address] 02/27/2024 [facility] [address] [place] [address] 04/01/2024 [facility] [address] [place] [address] 04/25/2024 [facility] [address] [place] [address] 05/15/2024 [facility] [address] [place] [address] 05/23/2024 [facility] [address] [place] [address] 05/23/2024 [facility] [address] [place] [address] 05/29/2024 [facility] [address] [place] [address] 06/05/2024 [facility] [address] [place] [address] 06/06/2024 [facility] Assessments Encounter Date Diagnosis (ICD Code) Assessment Notes Treatment Notes Treatment Clinical Notes Section Notes 09/06/2023 Chronic obstructive pulmonary disease, unspecified (ICD-10 - J44.9) Mr. Angeles is a 73-year-old gentleman with hypertension, hyperlipidemia, COPD, low testosterone, AAA, cervical radiculopathy, atrial fibrillation and status post lung cancer and resection of the right upper lobe here for follow up. Plan is as follows: COPD. stable. Oxygen sats are within reasonable limits. Continue Theophylline 400 MG once a day. He uses his inhalers as needed. He sees Dr. Jhaveri. Hypertension. Blood pressure is reasonably controlled on current regimen. Continue Cardizem 240 MG once a day, Carvedilol 3.125 MG BID, Diltiazem 120 MG BID Atrial fibrillation. He is rate-controlled and in sinus rhythm. he sees Dr Rose Mary BISHOP. Mood is stable on Sertraline 25 MG Urinary bladder stone. Status post lithotripsy by urologist at [facility]. His hematuria has improved Screening blood work before next appointment. General health concerns discussed with patient. Scribe services used to formulate this note under HIPAA compliance and under [place] law mandated for scribe services. Patient aware of service. Verbal consent and written consent taken from the patient. Patient understands and verbalizes understanding of the scribes services and all questions answered regarding scribes services. Patient agrees to use of scribes services. 09/06/2023 Essential (primary) hypertension (ICD-10 - I10) Mr. Angeles is a 73-year-old gentleman with hypertension, hyperlipidemia, COPD, low testosterone, AAA, cervical radiculopathy, atrial fibrillation and status post lung cancer and resection of the right upper lobe here for follow up. Plan is as follows: COPD. stable. Oxygen sats are within reasonable limits. Continue Theophylline 400 MG once a day. He uses his inhalers as needed. He sees Dr. Jhaveri. Hypertension. Blood pressure is reasonably controlled on current regimen. Continue Cardizem 240 MG once a day, Carvedilol 3.125 MG BID, Diltiazem 120 MG BID Atrial fibrillation. He is rate-controlled and in sinus rhythm. he sees Dr Rose Mary BISHOP. Mood is stable on Sertraline 25 MG Urinary bladder stone. Status post lithotripsy by urologist at [facility]. His hematuria has improved Screening blood work before next appointment. General health concerns discussed with patient. Scribe services used to formulate this note under HIPAA compliance and under [place] law mandated for scribe services. Patient aware of service. Verbal consent and written consent taken from the patient. Patient understands and verbalizes understanding of the scribes services and all questions answered regarding scribes services. Patient agrees to use of scribes services. 01/08/2024 Encounter for general adult medical examination without abnormal findings (ICD-10 - Z00.00) Mr. Angeles is a 73-year-old gentleman with hypertension, hyperlipidemia, COPD, low testosterone, AAA, cervical radiculopathy, atrial fibrillation and status post lung cancer and resection of the right upper lobe here for annual wellness visit. Plan is as follows: COPD. stable. Oxygen sats are within reasonable limits. Continue Theophylline 400 MG once a day. He uses his inhalers as needed. He sees Dr. Jhaveri. Hypertension. His blood pressure was running high and repeat blood pressure was normal. Continue Cardizem 240 MG once a day, Carvedilol 3.125 MG BID, Diltiazem 120 MG BID Atrial fibrillation. He is rate-controlled and in sinus rhythm. he sees Dr Bazzi. EKG is normal sinus rhythm at [address] bpm with no acute [address] or T wave changes, no bundle branch with normal intervals EDNA. Mood is stable on Sertraline 25 MG Urinary bladder stone. Status post lithotripsy by urologist at [facility]. His hematuria has improved Impaired fasting glucose. Dietary restrictions, regimental exercise and weight loss advised. check A1c. Eye screening. He sees his manager analysis regularly. Dental screening. He sees dentist regularly. Colon cancer screening. He had his colonoscopy done every 4 years. Immunizations. He is up-to-date on his TDAP and pneumonia vaccinations. Blood work reviewed with patient and questions answered. Screening blood work before next appointment. General health concerns discussed with patient. Scribe services used to formulate this note under HIPAA compliance and under [place] law mandated for scribe services. Patient aware of service. Verbal consent and written consent taken from the patient. Patient understands and verbalizes understanding of the scribes services and all questions answered regarding scribes services. Patient agrees to use of scribes services. 01/08/2024 Essential (primary) hypertension (ICD-10 - I10) Mr. Angeles is a 73-year-old gentleman with hypertension, hyperlipidemia, COPD, low testosterone, AAA, cervical radiculopathy, atrial fibrillation and status post lung cancer and resection of the right upper lobe here for annual wellness visit. Plan is as follows: COPD. stable. Oxygen sats are within reasonable limits. Continue Theophylline 400 MG once a day. He uses his inhalers as needed. He sees Dr. Jhaveri. Hypertension. His blood pressure was running high and repeat blood pressure was normal. Continue Cardizem 240 MG once a day, Carvedilol 3.125 MG BID, Diltiazem 120 MG BID Atrial fibrillation. He is rate-controlled and in sinus rhythm. he sees Dr Bazzi. EKG is normal sinus rhythm at 100 bpm with no acute ST or T wave changes, no bundle branch with normal intervals EDNA. Mood is stable on Sertraline 25 MG Urinary bladder stone. Status post lithotripsy by urologist at [facility]. His hematuria has improved Impaired fasting glucose. Dietary restrictions, regimental exercise and weight loss advised. check A1c. Eye screening. He sees his manager analysis regularly. Dental screening. He sees dentist regularly. Colon cancer screening. He had his colonoscopy done every 4 years. Immunizations. He is up-to-date on his TDAP and pneumonia vaccinations. Blood work reviewed with patient and questions answered. Screening blood work before next appointment. General health concerns discussed with patient. Scribe services used to formulate this note under HIPAA compliance and under [place] law mandated for scribe services. Patient aware of service. Verbal consent and written consent taken from the patient. Patient understands and verbalizes understanding of the scribes services and all questions answered regarding scribes services. Patient agrees to use of scribes services. 01/08/2024 Chronic obstructive pulmonary disease, unspecified (ICD-10 - J44.9) Mr. Angeles is a 73-year-old gentleman with hypertension, hyperlipidemia, COPD, low testosterone, AAA, cervical radiculopathy, atrial fibrillation and status post lung cancer and resection of the right upper lobe here for annual wellness visit. Plan is as follows: COPD. stable. Oxygen sats are within reasonable limits. Continue Theophylline 400 MG once a day. He uses his inhalers as needed. He sees Dr. Jhaveri. Hypertension. His blood pressure was running high and repeat blood pressure was normal. Continue Cardizem 240 MG once a day, Carvedilol 3.125 MG BID, Diltiazem 120 MG BID Atrial fibrillation. He is rate-controlled and in sinus rhythm. he sees Dr Bazzi. EKG is normal sinus rhythm at 100 bpm with no acute ST or T wave changes, no bundle branch with normal intervals EDNA. Mood is stable on Sertraline 25 MG Urinary bladder stone. Status post lithotripsy by urologist at [facility]. His hematuria has improved Impaired fasting glucose. Dietary restrictions, regimental exercise and weight loss advised. check A1c. Eye screening. He sees his manager analysis regularly. Dental screening. He sees dentist regularly. Colon cancer screening. He had his colonoscopy done every 4 years. Immunizations. He is up-to-date on his TDAP and pneumonia vaccinations. Blood work reviewed with patient and questions answered. Screening blood work before next appointment. General health concerns discussed with patient. Scribe services used to formulate this note under HIPAA compliance and under [place] law mandated for scribe services. Patient aware of service. Verbal consent and written consent taken from the patient. Patient understands and verbalizes understanding of the scribes services and all questions answered regarding scribes services. Patient agrees to use of scribes services. 09/06/2023 Unspecified atrial fibrillation (ICD-10 - I48.91) Mr. Angeles is a 73-year-old gentleman with hypertension, hyperlipidemia, COPD, low testosterone, AAA, cervical radiculopathy, atrial fibrillation and status post lung cancer and resection of the right upper lobe here for follow up. Plan is as follows: COPD. stable. Oxygen sats are within reasonable limits. Continue Theophylline 400 MG once a day. He uses his inhalers as needed. He sees Dr. Jhaveri. Hypertension. Blood pressure is reasonably controlled on current regimen. Continue Cardizem 240 MG once a day, Carvedilol 3.125 MG BID, Diltiazem 120 MG BID Atrial fibrillation. He is rate-controlled and in sinus rhythm. he sees Dr Bazzi EDNA. Mood is stable on Sertraline 25 MG Urinary bladder stone. Status post lithotripsy by urologist at [facility]. His hematuria has improved Screening blood work before next appointment. General health concerns discussed with patient. Scribe services used to formulate this note under HIPAA compliance and under [place] law mandated for scribe services. Patient aware of service. Verbal consent and written consent taken from the patient. Patient understands and verbalizes understanding of the scribes services and all questions answered regarding scribes services. Patient agrees to use of scribes services. 09/06/2023 Cerebral infarction, unspecified (ICD-10 - I63.9) Mr. Angeles is a 73-year-old gentleman with hypertension, hyperlipidemia, COPD, low testosterone, AAA, cervical radiculopathy, atrial fibrillation and status post lung cancer and resection of the right upper lobe here for follow up. Plan is as follows: COPD. stable. Oxygen sats are within reasonable limits. Continue Theophylline 400 MG once a day. He uses his inhalers as needed. He sees Dr. Jhaveri. Hypertension. Blood pressure is reasonably controlled on current regimen. Continue Cardizem 240 MG once a day, Carvedilol 3.125 MG BID, Diltiazem 120 MG BID Atrial fibrillation. He is rate-controlled and in sinus rhythm. he sees Dr Rose Mary BISHOP. Mood is stable on Sertraline 25 MG Urinary bladder stone. Status post lithotripsy by urologist at [facility]. His hematuria has improved Screening blood work before next appointment. General health concerns discussed with patient. Scribe services used to formulate this note under HIPAA compliance and under [place] law mandated for scribe services. Patient aware of service. Verbal consent and written consent taken from the patient. Patient understands and verbalizes understanding of the scribes services and all questions answered regarding scribes services. Patient agrees to use of scribes services. 01/08/2024 Malignant neoplasm of unspecified part of unspecified bronchus or lung (ICD-10 - C34.90) Mr. Angeles is a 73-year-old gentleman with hypertension, hyperlipidemia, COPD, low testosterone, AAA, cervical radiculopathy, atrial fibrillation and status post lung cancer and resection of the right upper lobe here for annual wellness visit. Plan is as follows: COPD. stable. Oxygen sats are within reasonable limits. Continue Theophylline 400 MG once a day. He uses his inhalers as needed. He sees Dr. Jhaveri. Hypertension. His blood pressure was running high and repeat blood pressure was normal. Continue Cardizem 240 MG once a day, Carvedilol 3.125 MG BID, Diltiazem 120 MG BID Atrial fibrillation. He is rate-controlled and in sinus rhythm. he sees Dr Bazzi. EKG is normal sinus rhythm at [address] with [address] or T wave changes, no bundle branch with normal intervals EDNA. Mood is stable on Sertraline 25 MG Urinary bladder stone. Status post lithotripsy by urologist at [facility]. His hematuria has improved Impaired fasting glucose. Dietary restrictions, regimental exercise and weight loss advised. check A1c. Eye screening. He sees his manager analysis regularly. Dental screening. He sees dentist regularly. Colon cancer screening. He had his colonoscopy done every 4 years. Immunizations. He is up-to-date on his TDAP and pneumonia vaccinations. Blood work reviewed with patient and questions answered. Screening blood work before next appointment. General health concerns discussed with patient. Scribe services used to formulate this note under HIPAA compliance and under [place] law mandated for scribe services. Patient aware of service. Verbal consent and written consent taken from the patient. Patient understands and verbalizes understanding of the scribes services and all questions answered regarding scribes services. Patient agrees to use of scribes services. 01/08/2024 Unspecified atrial fibrillation (ICD-10 - I48.91) Mr. Angeles is a 73-year-old gentleman with hypertension, hyperlipidemia, COPD, low testosterone, AAA, cervical radiculopathy, atrial fibrillation and status post lung cancer and resection of the right upper lobe here for annual wellness visit. Plan is as follows: COPD. stable. Oxygen sats are within reasonable limits. Continue Theophylline 400 MG once a day. He uses his inhalers as needed. He sees Dr. Jhaveri. Hypertension. His blood pressure was running high and repeat blood pressure was normal. Continue Cardizem 240 MG once a day, Carvedilol 3.125 MG BID, Diltiazem 120 MG BID Atrial fibrillation. He is rate-controlled and in sinus rhythm. he sees Dr Bazzi. EKG is normal sinus rhythm at 100 bpm with no acute ST or T wave changes, no bundle branch with normal intervals EDNA. Mood is stable on Sertraline 25 MG Urinary bladder stone. Status post lithotripsy by urologist at [facility]. His hematuria has improved Impaired fasting glucose. Dietary restrictions, regimental exercise and weight loss advised. check A1c. Eye screening. He sees his manager analysis regularly. Dental screening. He sees dentist regularly. Colon cancer screening. He had his colonoscopy done every 4 years. Immunizations. He is up-to-date on his TDAP and pneumonia vaccinations. Blood work reviewed with patient and questions answered. Screening blood work before next appointment. General health concerns discussed with patient. Scribe services used to formulate this note under HIPAA compliance and under [place] law mandated for scribe services. Patient aware of service. Verbal consent and written consent taken from the patient. Patient understands and verbalizes understanding of the scribes services and all questions answered regarding scribes services. Patient agrees to use of scribes services. 09/06/2023 Urinary calculus, unspecified (ICD-10 - N20.9) Mr. Angeles is a 73-year-old gentleman with hypertension, hyperlipidemia, COPD, low testosterone, AAA, cervical radiculopathy, atrial fibrillation and status post lung cancer and resection of the right upper lobe here for follow up. Plan is as follows: COPD. stable. Oxygen sats are within reasonable limits. Continue Theophylline 400 MG once a day. He uses his inhalers as needed. He sees Dr. Jhaveri. Hypertension. Blood pressure is reasonably controlled on current regimen. Continue Cardizem 240 MG once a day, Carvedilol 3.125 MG BID, Diltiazem 120 MG BID Atrial fibrillation. He is rate-controlled and in sinus rhythm. he sees Dr Rose Mary BISHOP. Mood is stable on Sertraline 25 MG Urinary bladder stone. Status post lithotripsy by urologist at [facility]. His hematuria has improved Screening blood work before next appointment. General health concerns discussed with patient. Scribe services used to formulate this note under HIPAA compliance and under [place] law mandated for scribe services. Patient aware of service. Verbal consent and written consent taken from the patient. Patient understands and verbalizes understanding of the scribes services and all questions answered regarding scribes services. Patient agrees to use of scribes services. 01/08/2024 Impaired fasting glucose (ICD-10 - R73.01) Mr. Angeles is a 73-year-old gentleman with hypertension, hyperlipidemia, COPD, low testosterone, AAA, cervical radiculopathy, atrial fibrillation and status post lung cancer and resection of the right upper lobe here for annual wellness visit. Plan is as follows: COPD. stable. Oxygen sats are within reasonable limits. Continue Theophylline 400 MG once a day. He uses his inhalers as needed. He sees Dr. Jhaveri. Hypertension. His blood pressure was running high and repeat blood pressure was normal. Continue Cardizem 240 MG once a day, Carvedilol 3.125 MG BID, Diltiazem 120 MG BID Atrial fibrillation. He is rate-controlled and in sinus rhythm. he sees Dr Bazzi. EKG is normal sinus rhythm at 100 bpm with no acute ST or T wave changes, no bundle branch with normal intervals EDNA. Mood is stable on Sertraline 25 MG Urinary bladder stone. Status post lithotripsy by urologist at [facility]. His hematuria has improved Impaired fasting glucose. Dietary restrictions, regimental exercise and weight loss advised. check A1c. Eye screening. He sees his manager analysis regularly. Dental screening. He sees dentist regularly. Colon cancer screening. He had his colonoscopy done every 4 years. Immunizations. He is up-to-date on his TDAP and pneumonia vaccinations. Blood work reviewed with patient and questions answered. Screening blood work before next appointment. General health concerns discussed with patient. Scribe services used to formulate this note under HIPAA compliance and under [place] law mandated for scribe services. Patient aware of service. Verbal consent and written consent taken from the patient. Patient understands and verbalizes understanding of the scribes services and all questions answered regarding scribes services. Patient agrees to use of scribes services. Plan Of Treatment Pending Test Test Name Order Date Ultrasound : Kidneys and Bladder 024 Future Test Test Name Order Date HEMOGLOBIN A1C WITH EST GLUCOSE 08/13/19 22 COMPREHENSIVE METABOLIC PANEL 11/23/2022 HEMOGLOBIN A1C WITH EST GLUCOSE 11/24/19 23 LIPID PANEL 11/23/2022 MICROALBUMIN, URINE 11/23/2022 Hemoglobin [id number] 01/08/2024 Albumin/Creatinine Ratio,Urine-[id number] Lipid Panel-[id number] 01/08/2024 Comp. Metabolic Panel [id number] 2023 Next Appt Details Provider Name:Olga saldivar, 06/25/2024 03:15:00 PM, [address] [place] [address] [place], [address], Provider Name:Olga saldivar, 07/25/2024 03:30:00 PM, [address] [facility] [address], [place], [address], Insurance Providers Payer Name Payer Address Payer Phone Subscriber Number Group Number Insured Name Patient Relationship to Insured Coverage Start Date Coverage End Date [employer] Preferred [address] [place] [address] [id number] Dirk Pedro i Self - patient is the insured 2 Medical (General) History Medical History History ICD Code Essential (primary) hypertension I10 Hyperlipidemia, unspecified E78.5 COPD and he sees Dr. Jhaveri Low testosterone levels and he sees Dr. 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 He is currently on Coumadin monitored by Coumadin clinic at [facility]. Pulmonary nodule right lung. Positive on PET scan and planning to have resection by at [facility] Small bowel obstruction and status post resection and he sees Dr. Barr. Cervical radiculopathy and h e follows with [facility] spine and sports and is on narcotics Smokes marijuana for appetite A Fib see Dr Bazzi Personal history of COVID-19 S/P Pasturella infection Surgical History Surgery Date(Month/Year) Small bowel obstruction 06/26/16 cervical spine 09/17/13 Right upper lobectomy at [facility] 09/2018 Hospitalization History Reason Date(Month/Year) right lobectomy 10/13/18
--- OUTSIDE RECORDS SUMMARY | 2024-06-14 14:53 | XMS_ITS ---
Author Organization [facility] Address [address] [facility] [address] [place] [address] Care Team Providers Care Call Center Rn Name Role Phone CNY FAJARDO Primary Care Provider REASON FOR VISIT 06/19/24 [facility] Auth Encounters Encounter Location Date Provider Diagnosis [facility] 294 [facility] [address] [place] [address] 06/05/2024 CYN FAJARDO Plan Of Treatment Next Appt Details Provider Name:Anniened Agnieszka saldivar, 06/25/2024 03:15:00 PM, [address] [place] [address] [address], [place], [address], Provider Name:Olga saldivar, 07/25/2024 03:30:00 PM, [address] [place] [address], [place], [address], Progress Notes * Dirk MOMINDOB: [birth year] (74 yo M)Acc No.[id number]:06/05/2024 Patient:?Dirk MOMIN :1950???Age:74 Y???Sex:Male Phone: Address:[address] [facility] [place] [address] * true * Date:? Generated for Printi raven/Fajilg/eTransmitting on:?06/14/2024 02:52 PM EST
--- OUTSIDE RECORDS SUMMARY | 2024-06-14 14:53 | XMS_ITS | Patient Health Record ---
Author Organization [facility] Address [address] [place] [address] Care Team Providers Care Heel Seat Flap Stapler Name Role Phone SCOTTY CYN Primary Care Provider Sarwat Lopez [phone] ALLERGIES Allergen (clinical drug ingredient) Drug/Non Drug Allergy documented on EMR Reaction Allergy Type Onset Date Status Motrin Unknown Drug Allergy Active levofloxacin Levofloxacin Unknown Drug Allergy A ctive REASON FOR REFERRAL No Information MEDICATIONS Medication SIG (Take, Route, Frequency, Duration) Notes Start Date End Date Status Mucinex 600 MG 1 tablet as needed Orally every 12 hrs Active Albuterol Not-Taking Warfarin Sodium 5 MG Oral for 90 Active Creon 10517 UNIT take 1 15-30 minutes before each meal and 1 during each meal Orally TID for 30 days 09/23/2016 Not-Taking oxyCODONE HCl 15 MG 1 tablet as needed Orally every 6 hrs Active Testosterone Active ProAir HFA Active Daliresp 250 MCG 2 tablets Orally Onc e a day for 30 day(s) Active ProAir RespiClick Ac tive Albuterol Sulfate (2.5 MG/3ML) 0.083% 3 ml as needed Inhalation every 6 hrs Active Theophylline ER 400 MG TAKE 1/2 TABLET B Y MOUTH DAILY Oral for 90 Active Trelegy Ellipta 100-62.5-25 MCG/INH 1 puff Inhalation Once a day Active Atorvastatin Calcium 40 MG 1 tablet Orally Once a day Active Multivitamin - 1 tablet Orally Once a day for 30 day(s) Active Dicyclomine HCl 10 MG TAKE 1 TO 2 CAPSUL ES BY MOUTH EVERY 4 TO 6 HOURS NEEDED FOR ABDOMINAL CRAMPS/LOOSE STOOLS, MAY TAKE BEFORE A MEAL WELL FOR 30 DAYS for 30 Not-Taking dilTIAZem HCl 120 MG as directed Orally Active Mesalamine 800 MG TAKE 1 TABLET BY GILBERT TH THREE TIMES DAILY for 30 Not-Taking Calcium Citrate 950 (200 Ca) MG 1 tablet Orally Once a day for 30 day(s) Active Advair Diskus 500-50 MCG/DOSE Inhalation for 30 Not-Taking IMMUNIZATIONS Vaccine Route Administration Date Status Comme nts Influenza Unknown 01/23/2020 Administered Influenza Unknown 06/29/2021 Refused SOCIAL HISTORY Tobacco Use: Social History Observation Description Date Details (start date - stop date) Former Smoker NA - NA Sex Assigned At : Social History Observation Description Sex Assigned At Unknown Tobacco Use/Smoking Question Answer Notes Patient is a former smoker How long has it been since you last smoked? < 1 month PROBLEMS Problem Type ICD Code Onset Dates Problem Status W/U Status Risk SNOMED Code Notes Problem Encounter for screening for malignant neoplasm of colon (Z12.11) Active confirmed Screening for malignant neoplasm of colon (861617912) Problem Diarrhea (R19.7) Active confirmed Diarr hea (60975993) Problem Weight loss (R63.4) Active confirmed 685082421 Problem Irritable bowel syndrome with diarrhea (K58.0) Active confirmed Irritable b owel syndrome with diarrhea (822300931) Problem Flatulence (R14.3) Active confirmed 324327565 Problem Constipation, unspecified constipation type (K59.00) Active confirmed 88083339 Problem Abdominal cramps (R10.9) Active confirmed 19988006 Problem Other ulcerative colitis without complication (K51.80) Active confirmed 75488411 Problem Anemia, unspecified type (D64.9) Active confirmed 497711672 Problem Ulcerative colitis (K51.90) Active confirmed Ulcerative colitis (23437583) Problem Diarrhea, unspecified type (R19.7) Active confirmed 78924273 Problem Chronic pancreatitis, unspecified pancreatitis type (K86.1) Active confirmed 364934893 Problem Clostridium difficile diarrhea (A04.72) Active confirmed Clostridiu m difficile diarrhea (7603569594499) Problem Clostridioides difficile infection (A49.8) Active confirmed Clostridio ides difficile infection (908612801) PLAN OF TREATMENT Pending Test Test Name Order Date LIVER PROFILE 08/24/2016 LIVER PROFILE 05/19/2020 T4 (THYROXINE) 08/24/2016 TSH (THYROID STIMULATING HORMONE) 2016 IRON + IBC (FE) 08/24/2016 IRON + IBC (FE) 05/19/2020 FERRITIN 05/19/2020 FERRITIN 08/24/2016 CRP 05/19/2020 VITAMIN B12 AND FOLATE 08/24/2016 VITAMIN B12 AND FOLATE 05/19/2020 CBC w DIFF 08/24/2016 CBC w DIFF 05/19/2020 SED RATE (ESR) 05/19/2020 STOOL WBC 05/19/2020 CELIAC PANEL #10 12/29/2020 GIARDIA AG, STOOL EIA 05/19/2020 OVA & PARASITES (O&P) 05/19/2020 CULTURE, STOOL 05/19/2020 TSH REFLEX FREE T4 05/19/2020 C DIFFICILE RFLX PCR 05/19/2020 C DIFFICILE RFLX PCR 06/09/2020 Future Test Test Name Order Date COLONOSCOPY 12/11/2014 COLONOSCOPY 05/26/2020 Insurance Providers Payer Name Payer Address Payer Phone Subscriber Number Group Number Insured Name Patient Relationship to Insured Coverage Start Date Coverage End Date [employer] P[employer]ED [address] [place] [address] [phone] [id number] LEIGHTON MELGAR Self - patient is the insured MEDICAL (GENERAL) HISTORY Medical History History ICD Code Most recent colonoscopy was 03/10/2010--no active colitis, no dysplasia on biopsies, no polyps Stroke-causing some partial loss of visi on in the left eye 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 Ramos Hyperlipidemia Ulcerative colitis dating back to the [place],DM,renal disease Chronic back pain--spinal stenosis AAA--approx 3 cm-followed with periodic U/S RUL Lung cancer with surgery as below C.diff infection 04/2020 Colonoscopy 07/2020--normal e xcept for 1 small tubular adenoma--no colitis, no dysplasia Neg. ETT in 05/2021 Surgical History Surgery Date(Month/Year) Perirectal abscess surgery Neck surgery for 3 discs--Dr. Rodriguez SB volvulus--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 Hampton at [facility] [place] 06/2016 RUL lobectomy for cancer-Dr. Newman-no chemo/XRT- told that he is cancer-free 04/2018
--- OUTSIDE RECORDS SUMMARY | 2024-06-14 14:53 | XMS_ITS ---
Author Organization [facility] Address [address] [address] Care Team Providers Care Byproducts Operator Name Role Phone CYN FAJARDO Primary Care Provider REASON FOR VISIT [facility] 06/12/24 [facility] Encounters Encounter Location Date Provider Diagnosis [facility] [address] [facility] [address] [place] [address] 06/06/2024 CYN FAJARDO Plan Of Treatment Next Appt Details Provider Name:Olga saldivar, 06/25/2024 03:15:00 PM, [address] [place] [address], [place], [address], Provider Name:Olga saldivar, 07/25/2024 03:30:00 PM, [address] [place] [address], [place], [address], Progress Notes * Dirk MOMINDOB: [birth year] (74 yo M)Acc No.[id number]:06/06/2024 Patient:?Dirk MOMIN :1950???Age:74 Y???Sex:Male Phone: Address:[address] [facility] [place] [address] * true * Date:? Generated for Printi ng/Fajilg/eTransmitting on:?06/14/2024 02:53 PM EST
--- OUTSIDE RECORDS SUMMARY | 2024-06-14 14:53 | XMS_ITS | Clinical Summary ---
Author Organization [facility] Address [address] [place] [address] Care Team Providers Care Glove Sewer Name Role Phone Timoteo Escamilla MD Primary Care Provider [phone] Allergies Active Allergy Reactions Criticality Noted Date Comments Ibuprofen 10/13/2022 Medications acetaminophen (TYLENOL) 500 mg tablet Take 1 [...] CALCIUM CITRATE-VITAMIN D2 ORAL Take by mouth. Activ e dilTIAZem CD (CARDIZEM CD) 120 mg 24 hr capsule Take 1 capsule (120 mg total) by mouth daily. Active DOXYCYCLINE HYCLATE ORAL Take by mouth. Pt unsure of dosage. Active fluticasone-salm eterol (ADVAIR DISKUS) 250-50 mcg/dose diskus inhaler Inhale into the lungs. Active fluticasone-umec lidinium-vilante rol (Trelegy Ellipta) 100-62.5-25 mcg inhaler Inhale into the lungs. Active guaiFENesin (MUCINEX) 600 mg 12 hr tablet Take 2 tablets (1,200 mg total) by mouth 2 (two) times a day. Active folic acid/multivit-mi n/lutein (CENTRUM SILVER ORAL) Take by mouth. Activ e oxyCODONE (ROXICODONE) 10 mg immediate release tablet [...] 04/23/2022 Immunizations Name Administration Dates Next Due [facility] SARS-CoV-2 COVID-19, mRNA, LNP-S, preservative free 08/23/2020,08/01/2020 Social History Tobacco Use Types Packs/Day Years Used Date Smoking Tobacco: Never Assessed Sex and Gender Information Value Date Recorded Sex Assigned at Not on file Legal Sex Male 11:23 PM EST Gender Identity Not on file Sexual Orientation [...] Description 07/03/2024 3:00 PM EDT Office Visit [facility] Hematology Oncology [address] [place] [address] Casey Llanes MD [address] [place] [address] Health Maintenance Due Date Last Done Comments DTaP,Tdap,and Td Vaccines (1 - Tdap) 02/15/1968 Pneumococcal Vaccine: 50+ Years (1 of 2 - PCV) 02/15/1968 Zoster Vaccines (1 of 2) 02/15/1968 [...] patient's age to complete this topic Meningococcal B Vacine Aged Out No lo nger eligible based on patient's age to complete this topic RSV Immunization Patients Under 20 months Aged Out No longer eligible b ased on patient's age to complete this topic Varicella Vaccines Aged Out No longer eligible based on patient's age to complete this topic Insurance [employer] Care Teams Glove Sewer Relationship Specialty Start Date End Date Timoteo Escamilla MD [address] [place] [address] PCP - General 02/23/22
== END 2024-06-14 15:09 | disposition home or self-care (01) ==
LOC: HO.ACS 14:32
PROVIDERS: PCP Hospitalist; Visit Provider Internal Medicine
DX: Z79.01 Long term (current) use of anticoagulants (principal)

== ENCOUNTER → 2024-06-14 14:32 | Outpatient (BNVA) | payer MEDICARE, SELFPAY | PROVIDERS: PCP Hospitalist; Visit Provider Internal Medicine | DX: Z86.73 Personal history of transient ischemic attack (TIA), and cerebral infarction without residual deficits (principal); Z79.01 Long term (current) use of anticoagulants; Z51.81 Encounter for therapeutic drug level monitoring | CPT/HCPCS: 85610; 99211 ==

== ENCOUNTER 2024-07-01 14:12 | Outpatient (AMB) | payer MEDICARE, SELFPAY ==
--- NOTE | 2024-07-01 14:14 | A.OFFVIS_ITS ---
Vital Signs 07/01/24 14:16 Height 5 ft 6 in Weight 101 lb 6.602 oz BMI 16.4 BP 130/68 Blood Pressure Location Rt brachial Position Sitting Pulse 83 Pulse Source Pulse Oximeter Pulse Oximetry (%) 97 Oxygen Delivery Method Room Air Intake Visit Reasons: Bronchiectasis Allergies bupropion [From Wellbutrin] Allergy (Intermediate, Verified 07/01/24 14:18) Nausea levofloxacin [From LEVAQUIN] Allergy (Intermediate, Verified 07/01/24 14:18) GI UPSET/ WEIGHT LOSS, anaphylaxis sulfamethoxazole [From Bactrim] Allergy (Intermediate, Verified 07/01/24 14:18) rash trimethoprim [From Bactrim] Allergy (Intermediate, Verified 07/01/24 14:18) rash ibuprofen Allergy (Mild, Verified 07/01/24 14:18) GI DISTRESS HPI Comments Details: The patient is a 74-year-old gentleman with a significant pulmonary history. the patient does have a history of lung cancer diagnosed back in 2019 status post right upper lobectomy. Patient did not receive any chemo or radiation. He also carries diagnosis of COPD. He also has pulmonary nodules and also evidence of interstitial lung disease. His last CT scan of the chest was done back in August 2021 at [facility]. It appears that the patient has evidence of interstitial lung disease with underlying pulmonary fibrosis. There is also evidence of bronchiectasis with extensive mucus plugging. He has pulmonary nodules. Some of the areas of pulmonary fibrosis appear to be coalescing and difficult to know if there is any recurrent malignancy. The radiologist recommended a close follow-up. The patient continues to have a worsening cough productive in nature. Yellowish to green sputum. We were able to perform a nebulized treatment with Xopenex and hypertonic saline and did send sputum for culture for both AFB and Gram staining culture. The patient has had a bronchoscopy in the past many years ago performed by a local thoracic surgeon and he tolerated that well. At this point he does not need a bronchoscopy but we have to work on his chest physical therapy. The patient does have a percussion valve already prescribed by his previous armature and rotor winder. At this time will increase his chest physical therapy to try to remove mucus plugging in the patient will need a repeat CT scan. In addition to that the patient has been getting samples of Trelegy which appears to be very effective in beneficial for him. However, is also very expensive and he is currently in the donut hole. I will send him a generic Wixela with hope that this will be less of a financial burden. 09/29/2023 the patient is here for a pulmonary follow-up visit. He continues to do fairly well. 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 The twice a day dosing is hard for him because of GI upset. He is going to decrease it down to once a day. Also can try some simethicone as needed. His cough congestion has improved. He is also dealing with atrial fibrillation. But hopefully we can get him back to pulmonary rehab so he can start exercising. He needs to also increase his caloric intake to make sure that he gained some weight. Continues use the oxygen with good effect. Will go ahead and decrease his Trelegy down to 100 from 200 because of his concerns of high inhaled steroids. We also did review his last CT scan of the chest that was done at [facility] in 2021. Patient did have pulmonary nodules. Based on his ongoing symptoms in his weight loss will go ahead and request a CT scan of the chest prior to the next visit. 01/04/2024 the patient is here for a pulmonary follow-up visit. The patient overall has been doing better. He has been responding well to the doxycycline. Although sometimes hard to tolerate. Sometimes he does decreased down to 3 times a week which is very reasonable. The patient did have a CT scan of the chest that we did personally review. And appears that he has some chronic airway disease emphysematous changes and some degree of atelectasis and scarring. The patient does have the oxygen at home he does use it if he does get involved in increased exercise activity. He was supposed to start pulmonary rehabilitation but he had not started as of yet. I am hopeful that he calls and this situated with the quickly start building muscle strength and respiratory endurance. Will continue with chest PT as well. The patient will continue with current therapy and will follow-up sometime in the spring. If he has any issues prior to that he will call for an earlier assessment. 03/07/2024 the patient is here for a pulmonary preoperative evaluation. 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 He is here to be evaluated preoperatively. The patient does have advanced COPD. He has also has bronchiectasis and has been colonized with stenotrophomonas responding well to the antibiotic therapy that he uses prophylactically. In view of his perioperative pulmonary risk the patient is considered very high risk. We had him do a spirometry in the office in his FEV1 was only 22% predicted which is 0.57 L. This is consistent with very severe COPD. The patient's last blood gas also demonstrated a slightly elevated pCO2 of 50 mmHg. Therefore the patient does have evidence of hypercarbic respiratory failure due to COPD. Therefore any form of anesthesia will be considered high risk for perioperative pulmonary complications which include; atelectasis, hypoxia, pneumonia, bronchospasms and prolonged mechanical ventilation. During the visit with luciano andujar for a walking oximetry the patient was able to maintain a pulse ox of 96% throughout the ambulation which is reassuring. His distance score was also these at 5 out of 10. He continues uses respiratory therapy as prescribed. Otherwise the patient is without any other complaints. 07/01/2024 the patient is here for a pulmonary follow-up visit. Overall he is doing okay. He continues on the doxycycline daily. Unfortunately his cough is more congested and productive. Moderate severity. He does have multiple allergies. He does have a history stenotrophomonas. Will go ahead and increase his doxy to twice a day for month. In the meantime also try to get a sputum culture. His last CT scan of the chest back in 12/12/2023 which we personally reviewed. Does have some bronchiectatic changes COPD emphysema in addition to the fibrosis but no evidence of any pulmonary nodules of any concern. He has some calcified nodules consistent with granulomas. Continues with respiratory therapy. He continues to try to eat keep his caloric intake up. His appetite is a little bit down. He is having some hematuria. He is following up with Urology. Still the looking for a reason for his weight loss. It could all be related to his underlying pulmonary disease in his work of breathing will result in increased caloric demand. [facility] Medical History (Updated 03/07/24 @ 22:08 by Tony Jhaveri MD) Bronchiectasis Pulmonary fibrosis Pulmonary nodules Bronchiectasis History of MRSA infection Arthritis Back pain Hx of spinal stenosis Lab test negative for COVID-19 virus Arrhythmia Hx of Clostridium difficile infection Hx of cancer of lung On anticoagulant therapy Elevated cholesterol Hx of ulcerative colitis CVA (cerebral vascular accident) COPD (chronic obstructive pulmonary disease) AAA (abdominal aortic aneurysm) Vitamin D deficiency Hypogonadotropic hypogonadism Osteoporosis Surgical History H/O colonoscopy History of bowel resection History of bronchoscopy History of lobectomy of lung Hx of cervical discectomy Family History Father AAA (abdominal aortic aneurysm) Mother No problems noted. Social History Are you a primary care information associate to a significant other at home: No Do you presently have visiting nurse or other home services: No Patient Tobacco Use Status: Former Tobacco user Tobacco use type: Cigarette Years Smoked: 54 Years Substance Use Type: Marijuana Review of Systems Const Reports fatigue, Denies fever(s) and Reports weight loss Eyes Denies eye discharge ENT Denies change in voice Card Denies chest pain and Reports dyspnea on exertion Resp Reports chest congestion, Reports cough, Denies hemoptysis, Reports dyspnea on exertion and Denies wheezing GI Reports no additional complaints Reports as per HPI and Reports hematuria Musc Reports no additional complaints Skin/Breast Denies rash Neuro Reports no additional complaints Endo Reports no additional complaints and Reports fatigue Ortiz/Lymph Denies easy bleeding, Denies easy bruising and Denies lymphadenopathy Aller/Immun Denies wheezing Physical Exam Vital Signs: Last Vital Signs Pulse 83 07/01/24 14:16 BP 130/68 07/01/24 14:16 Pulse Ox 97 07/01/24 14:16 Oxygen Delivery Method Room Air 07/01/24 14:16 BMI result Body Mass Index 16.4 Const General: comfortable HEENT Head: Yes normal to inspection Eyes General: appearance normal, both eyes and all related structures Neck Neck: Yes supple Chest Chest palpation & inspection: normal inspection of the chest Resp Effort & Inspection: normal respiratory effort Auscultation: no crackles, no rales, no rhonchi and diminished lung sounds Cardio Rate: regular rate Rhythm: regular rhythm Heart sounds: S1 normal heart sound present and S2 normal heart sound present Extrem General: Yes no clubbing, cyanosis or edema Assessment & Plan Assessment & Plan (1) Bronchiectasis: Code(s): J47.9 - Bronchiectasis, uncomplicated Category: Medical Qualifiers: Bronchiectasis type: uncomplicated Qualified Code(s): J47.9 - Bronchiectasis, uncomplicated (2) COPD (chronic obstructive pulmonary disease): Comment: very severe, FEV 1 22%predicted Code(s): J44.9 - Chronic obstructive pulmonary disease, unspecified Category: Medical Qualifiers: COPD type: COPD with acute exacerbation Qualified Code(s): J44.1 - Chronic obstructive pulmonary disease with (acute) exacerbation (3) Dyspnea: Code(s): R06.00 - Dyspnea, unspecified Category: Medical Qualifiers: Dyspnea type: dyspnea on exertion Qualified Code(s): R06.09 - Other forms of dyspnea (4) Pulmonary fibrosis: Code(s): J84.10 - Pulmonary fibrosis, unspecified Category: Medical (5) Pulmonary nodules: Code(s): R91.8 - Other nonspecific abnormal finding of lung field Category: Medical (6) Hx of cancer of lung: Comment: with right upper [id number] not need chemotherapy or radiation Code(s): Z85.118 - Personal history of other malignant neoplasm of bronchus and lung Category: Medical Plan Increase Doxycycline to BID x 1 month, then daily Sputum cx Trelegy 100mcg daily nebulized therapy with albuterol followed by hypertonic saline followed by Aerobika valve twice a day hypertonic saline 3% to be started for his chest physical therapy Exercise routine Mucinex as needed follow-up in 4-6 months Orders: Orders Sputum Cult + Gram stain Today R91.1 - Solitary pulmonary nodule Medications: Changed From doxycycline hyclate 100 mg PO Q24H 30 caps 6RF To doxycycline hyclate 100 mg PO BID 30 caps 0RF Refilled doxycycline hyclate 100 mg PO BID 60 caps 0RF Coding Level of Care Code Est Pt Level 4 (06914) Complex EM visit Add On G2211 Diagnoses Bronchiectasis without complication J47.9 Bronchiectasis type: uncomplicated Chronic obstructive pulmonary disease with acute exacerbation J44.1 COPD type: COPD with acute exacerbation Dyspnea on exertion R06.09 Dyspnea type: dyspnea on exertion Pulmonary fibrosis J84.10 Pulmonary nodules R91.8 Hx of cancer of lung Z85.118 Time Spent (min) 17
[2024-07-01 14:16] VITALS: BP 130/68; PULSE 83; O2SAT 97; BMI 16.4
--- OUTSIDE RECORDS SUMMARY | 2024-07-01 16:13 | XMS_ITS | Clinical Summary ---
Author Organization [facility] Address [address] [place] [address] Care Team Providers Care Education And Training Coordinator Name Role Phone Timoteo Escamilla MD Primary Care Provider [phone] Allergies Active Allergy Reactions Criticality Noted Date [...] age to complete this topic Care Teams Education And Training Coordinator Relationship Specialty Start Date End Date Timoteo Escamilla MD [address] [place] [address] PCP - General Internal Medicine 02/23/22
--- OUTSIDE RECORDS SUMMARY | 2024-07-01 16:13 | XMS_ITS ---
Author Organization [facility] Address 294 [facility] [address] [place] [address] Care Team Providers Care Outreach Professional Name Role Phone CYN FAJARDO Primary Care Provider REASON FOR VISIT 06/19/24 [facility] Auth Encounters Encounter Location Date Provider Diagnosis [facility] 294 [facility] [address] [place] [address] 06/05/2024 CYN FAJARDO Plan Of Treatment Next Appt Details Provider Name:Olga saldivar, 07/25/2024 03:30:00 PM, 294 [facility] [address], [place], [address], Progress Notes * Dirk MOMINDOB: [birth year] (74 yo M)Acc No.[id number]:06/05/2024 Patient:?Dirk MOMIN :1950???Age:74 Y???Sex:Male Phone: Address:[address] [facility] [place] [address] * true * Date:? Generated for Printi raven/Fajilg/eTransmitting on:?07/01/2024 04:12 PM EDT
--- OUTSIDE RECORDS SUMMARY | 2024-07-01 16:13 | XMS_ITS | Patient Health Record ---
Author Organization [facility] Address [address] [place] [address] Care Team Providers Care Playground Director Name Role Phone SCOTTY CYN Primary Care Provider Sarwat Lopez [phone] Allergies Allergen (clinical drug ingredient) Drug/Non Drug Allergy documented on EMR Reaction Allergy Type Onset Date Status Motrin Unknown Drug Allergy Active levofloxacin Levofloxacin Unknown Drug Allergy A ctive Reason For Referral No Information Medications Medication SIG (Take, Route, Frequency, Duration) Notes Start Date End Date Status Mucinex 600 MG 1 tablet as needed Orally every 12 hrs Active Albuterol Not-Taking Warfarin Sodium 5 MG Oral for 90 Active Creon 47171 UNIT take 1 15-30 minutes before each [...] Mesalamine 800 MG TAKE 1 TABLET BY TH THREE TIMES DAILY for 30 Not-Taking Calcium Citrate 950 (200 Ca) MG 1 tablet Orally Once a day for 30 day(s) Active Advair Diskus 500-50 MCG/DOSE Inhalation for 30 Not-Taking Immunizations Vaccine Route Administration Date Status Comme nts Influenza Unknown 01/23/2020 Administered Influenza Unknown 06/29/2021 Refused Social History Tobacco Use: Social History Observation Description Date Details (start date - stop date) Former Smoker NA - NA Tobacco Use/Smoking Question Answer Notes Patient is a former smoker How long has it been since you last smoked? < 1 month Section Notes: Stopped smoking in 2013; no sig alcohol Smoker 6 cigs/day; No sig. a lcohol now---had been a fairly heavy drinker in his 20's-30's Smoker 6 cigs/day; No sig. a lcohol now---had been a fairly heavy drinker in his 20's-30's Smoker 6 cigs/day; No sig. a lcohol now---had been a fairly heavy drinker in his 20's-30's Smoker 2 cigs/day; No sig. a lcohol now---had been a fairly heavy drinker in his 20's-30's Smoker 2 cigs/day; No sig. a lcohol now-had been a fairly heavy drinker in his 20's-30's Smoker 2 cigs/day but he sto pped smoking completely as of the 06/29/2021 office visit; No sig. alcohol now-had been a fairly heavy drinker in his 20's-30's Problems Problem Type SNOMED Code ICD Code Onset Dates Problem Status W/U Status Risk Notes Problem Screening for malignant neoplasm of colon (943475270) Encounter for screening for malignant neoplasm of colon (Z12.11) Active confirmed Problem Diarrhea (45700132) Diarrhea (R19.7) Active confirmed Problem 134242880 Weight loss (R63.4) Active confirmed Problem Irritable bowel syndrome with diarrhea (022508452) Irritable bowel syndrome with diarrhea (K58.0) Active confirmed Problem 833488072 Flatulence (R14.3) Active confirmed Problem 96127710 Constipation, unspecified constipation type (K59.00) Active confirmed Problem 50658703 Abdominal cramps (R10.9) Active confirmed Problem 15562325 Other ulcerative colitis without complication (K51.80) Active confirmed Problem 861621893 Anemia, unspecified type (D64.9) Active confirmed Problem Ulcerative colitis (87422842) Ulcerative colitis (K51.90) Active confirmed Problem 83449215 Diarrhea, unspecified type (R19.7) Active confirmed Problem 119703387 Chronic pancreatitis, unspecified pancreatitis type (K86.1) Active confirmed Problem Clostridium difficile diarrhea (3238745104559) Clostridium difficile diarrhea (A04.72) Active confirmed Problem Clostridioides difficile infection (119164506) Clostridioides difficile infection (A49.8) Active confirmed Plan Of Treatment Pending Test Test Name Order Date LIVER PROFILE 08/24/2016 LIVER PROFILE 05/19/2020 T4 (THYROXINE) 08/24/2016 TSH (THYROID STIMULATING HORMONE) 2016 IRON + IBC (FE) 08/24/2016 IRON + IBC (FE) 05/19/2020 FERRITIN 08/24/2016 FERRITIN 05/19/2020 CRP 05/19/2020 VITAMIN B12 AND FOLATE 08/24/2016 VITAMIN B12 AND FOLATE 05/19/2020 CBC w DIFF 05/19/2020 CBC w DIFF 08/24/2016 SED RATE (ESR) 05/19/2020 STOOL WBC 05/19/2020 [...] End Date [employer] PREFERRED [address] [facility] [phone] [id number] LEIGHTON MELGAR Self - patient is the insured Medical (General) History Medical History History ICD Code Most recent colonoscopy was 03/10/2010--no active colitis, no dysplasia on biopsies, no polyps Stroke-causing some partial loss of visi on in the left eye 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 Ramos Hyperlipidemia Ulcerative colitis dating back to the Denies AL,DM,renal disease Chronic back pain--spinal stenosis AAA--approx 3 cm-followed with periodic U/S RUL Lung cancer with surgery as below C.diff infection 04/2020 Colonoscopy 07/2020--normal e xcept for 1 small tubular adenoma--no colitis, no dysplasia Neg. ETT in 05/2021 Surgical History Surgery Date(Month/Year) Perirectal abscess surgery Neck surgery for 3 discs--Dr. 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 Hampton at [facility] 06/2016 RUL lobectomy for cancer-Dr. Newman-no chemo/XRT- told that he is cancer-free 04/2018
--- OUTSIDE RECORDS SUMMARY | 2024-07-01 16:13 | XMS_ITS | Clinical Summary ---
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 Hematology Oncology [address] [place] [address] Casey Llanes MD [address] [place] [address] Health Maintenance Due Date Last [...] on patient's age to complete this topic Procedures Procedure Name Priority Date/Time Associated Diagnosis Comments CULTURE URINE Routine 06/25/2024 1:15 PM EST Urinary tract infection, site not specified Gross hematuria from Last 3 Months Results * Culture urine (06/25/2024 1:15 PM EST) Culture, Urine No growth 06/26/2024 2:25 PM EST [facility] Urine Urine specimen obtained by clean catch procedure / Unknown 06/25/2024 1:15 PM EST 06/25/2024 6:08 PM EST Khurram [facility] MICROBIOLOGY - GE NERAL ORDERABLES Final Result [facility] [address] [place] [address], [place] [phone] from Last 3 Months Insurance [employer] Care Teams Laborer Cutting Tool Relationship Specialty Start Date End Date Timoteo Escamilla MD [address] [place] [address] PCP - General 02/23/22
--- OUTSIDE RECORDS SUMMARY | 2024-07-01 16:13 | XMS_ITS ---
Author Organization [facility] Address [address] [facility] [address] [place] [address] Care Team Providers Care Slitter Helper Name Role Phone CYN FAJARDO Primary Care Provider Olga Sarabia Unavailable [phone] Encounters Encounter Location Date Provider Diagnosis [facility] [address] [facility] [address] [place] [address] 06/25/2024 Olga Sarabia Plan Of Treatment Next Appt Details Provider Name:Olga saldivar, 07/25/2024 03:30:00 PM, [address] [facility] [address], [place], [address], Progress Notes * Dirk MOMINDOB: [birth year] (74 yo M)Acc No.[id number]:06/25/2024 Progress Notes Patient:?Dirk MOMIN Provider:Silver Sarabia :1950???Age:74 Y???Sex:Male Gabe e:06/25/2024 Phone: Address:[address] [place] [address] [place] [phone] Pcp:CYN FAJARDO Subjective: * Chief Complaints: * ??? * Medical History:? Objective: * Vitals:? Assessment: Plan: * Treatment: * * Electronic signature of Marty Sarabia PA-C on 07/01/2024 at 04:13 PM EDT Sign off status: Pending * Provider:Silver Sarabia Date:?06/26/19 25 Generated for Radha carbajal/Lalo/Dio on:?07/01/2024 04:13 PM EDT
--- OUTSIDE RECORDS SUMMARY | 2024-07-01 16:13 | XMS_ITS ---
Author Organization [facility] Address [address] [facility] [address] [place] [address] Care Team Providers Care Property Maintenance Technician Name Role Phone CYN FAJARDO Primary Care Provider REASON FOR VISIT [facility] 06/12/24 [facility] Encounters Encounter Location Date Provider Diagnosis [facility] [address] [facility] [address] [place] [address] 06/06/2024 CYN FAJARDO Plan Of Treatment Next Appt Details Provider Name:Olga saldivar, 07/25/2024 03:30:00 PM, [address] [facility] [address], [place], [address], Progress Notes * Dirk MOMINDOB: [birth year] (74 yo M)Acc No.[id number]:06/06/2024 Patient:?Dirk MOMIN :1950???Age:74 Y???Sex:Male Phone: Address:[address] [facility] [place] [address] * true * Date:? Generated for Printi ng/Fajilg/eTransmitting on:?07/01/2024 04:13 PM EDT
--- OUTSIDE RECORDS SUMMARY | 2024-07-01 16:13 | XMS_ITS | Encounter Summary ---
Author Organization [facility] Address [address] [place] [address] Care Team Providers Care Ict Analyst Name Role Phone Timoteo Escamilla MD Primary Care Provider [phone] Encounter Details Date Type Department Care Team (Late st Contact Info) Description 06/27/2024 Lab Requisition [facility] [address] [facility] [place] [phone] Khurram Zambrano PA [address] [facility] [address] [place] [address] Gross hematuria Social History Tobacco Use Types Packs/Day Years Used Date Smoking Tobacco: Never Assessed Sex and Gender Information Value Date Recorded Sex Assigned at Not on file Legal Sex Male 11:23 PM EST Gender Identity Not on file Sexual Orientation Not on file documented as of this encounter Plan of Treatment Upcoming Encounters Date Type Department Care Team (Late st Contact Info) Description 07/03/2024 3:00 PM EDT Office Visit [facility] Hematology Oncology [address] [place] [address] Casey Llanes MD [address] [place] [phone] Pending Results Name Type Priority Associated Diagnoses Date /Time Anatomic pathology outside consult Pathology and Cytology Routine Gross hematuria 06/25/2024 12:00 AM EST documented as of this encounter Visit Diagnoses Diagnosis Gross hematuria documented in this encounter Care Teams Ict Analyst Relationship Specialty Start Date End Date Timoteo Escamilla MD [address] [place] [address] PCP - General 02/23/22 documented as of this encounter
--- OUTSIDE RECORDS SUMMARY | 2024-07-01 16:13 | XMS_ITS | Encounter Summary ---
Author Organization [facility] Address [address] [place] [address] Care Team Providers Care Mineral Ore Processing Labourer Name Role Phone Timoteo Escamilla MD Primary Care Provider [phone] Encounter Details Date Type Department Care Team (Late st Contact Info) Description 06/25/[address] [facility] [address] [facility] [place] [phone] Khurram Zambrano PA [address] [place] [address] [place] [address] Urinary tract infection, site not specified; Gross hematuria Social History Tobacco Use Types [...] Description 07/03/2024 3:00 PM EDT Office Visit [facility] Hematology Oncology [address] [place] [address] Casey Llanes MD [address] [place] [phone] documented as of this encounter Procedures Procedure Name Priority Date/Time Associated Diagnosis Comments CULTURE URINE Routine 06/25/2024 1:15 PM EST Urinary tract infection, site not specified Gross hematuria documented in this encounter Results * Culture urine (06/25/2024 1:15 PM EST) Culture, Urine No growth 06/26/2024 2:25 PM EST [facility] Urine Urine specimen obtained by clean catch procedure / Unknown 06/25/2024 1:15 PM EST 06/25/2024 6:08 PM EST us Khurram DEGROOT [facility] MICROBIOLOGY - GE NERAL ORDERABLES Final Result [facility] [address] [place] [address], documented in this encounter Visit Diagnoses Diagnosis Urinary tract infection, site not specified Gross hematuria documented in this encounter Care Teams Mineral Ore Processing Labourer Relationship Specialty Start Date End Date Timoteo Escamilla MD [address] [place] [address] PCP - General 02/23/22 documented as of this encounter
== END 2024-07-01 14:35 | disposition home or self-care (01) ==
PROVIDERS: PCP Hospitalist; Visit Provider Hospitalist
DX: J47.9 Bronchiectasis, uncomplicated (principal); J44.1 Chronic obstructive pulmonary disease with (acute) exacerbation; R06.09 Other forms of dyspnea; J84.10 Pulmonary fibrosis, unspecified; R91.8 Other nonspecific abnormal finding of lung field; Z85.118 Personal history of other malignant neoplasm of bronchus and lung
CPT/HCPCS: 99214; G2211

== ENCOUNTER → 2024-07-01 14:12 | Outpatient (BNVA) | payer MEDICARE, SELFPAY | PROVIDERS: PCP Hospitalist; Visit Provider Hospitalist | DX: J47.9 Bronchiectasis, uncomplicated (principal); J44.1 Chronic obstructive pulmonary disease with (acute) exacerbation; R06.09 Other forms of dyspnea; J84.10 Pulmonary fibrosis, unspecified; R91.8 Other nonspecific abnormal finding of lung field; Z85.118 Personal history of other malignant neoplasm of bronchus and lung | CPT/HCPCS: 99212 ==

== ENCOUNTER 2024-07-05 14:39 | Outpatient (REF) | payer MEDICARE, SELFPAY ==
--- OUTSIDE RECORDS SUMMARY | 2024-07-05 16:22 | XMS_ITS | Patient Health Record ---
Author Organization [facility] Address [address] [place] [address] Care Team Providers Care Adhesive Bandage Machine Operator Name Role Phone CYN FAJARDO Primary Care Provider No Olga Unavailable [phone] Allergies Allergen (clinical drug ingredient) Drug/Non Drug Allergy documented on EMR Reaction Allergy Type Onset Date Status amoxicillin / clavulanate Augmentin hives Drug Allergy Active levofloxacin Levofloxacin anaphylaxis Drug Allergy Active Motrin Unknown Drug Allergy Active Wellbutrin Unknown Drug Allergy Active Results Component Value Reference Range Notes CULTURE URINE Reviewed date:06/26/2024 04:41:22 PM Interpretation: Performing Lab: Notes/Report: Culture, Urine No growth Albumin/Creatinine Ratio,Uri ne-[id number] Reviewed date:10/05/2023 03:44:33 PM Interpretation: Performing Lab:[facility], [address] [facility] [facility], Phone - [phone], Director - MDJodry Notes/Report: Creatinine, Urine 115.9 Not Estab. mg/dL Albumin, Urine 9.3 Not Estab. ug/mL Alb/Creat Ratio 8 0-29 mg/g creat Normal: 0 - 29 Moderately increased: 30 - 300 Severely increased: >300 CBC, Platelet, No Differenti al-[id number] Reviewed date:10/10/2023 11:50:09 AM Interpretation: Performing Lab:[facility], [address] [facility], [place], Phone - [phone], Director - MDJodry Notes/Report: WBC 9.6 3.4-10.8 x10E3/uL RBC 3.95 4.14-5.80 x10E6/uL Hemoglobin 11.3 13.0-17.7 g/dL Hematocrit 36.1 37.5-51.0 % MCV 91 79-97 fL MCH 28.6 26.6-33.0 pg MCHC 31.3 31.5-35.7 g/dL RDW 15.7 11.6-15.4 % Platelets 224 150-450 x10E3/uL Lipid Panel-[id number] Reviewed date:10/10/2023 11:50:12 AM Interpretation: Performing Lab:[facility], [address] [facility], Phone - [phone], Director - MDJodry Notes/Report: Cholesterol, Total 179 100-199 mg/dL Triglycerides 82 0-149 mg/dL HDL Cholesterol 73 >39 mg/dL VLDL Cholesterol Huan 15 5-40 mg/dL LDL Chol Calc (NIH) 91 0-99 mg/dL Comp. Metabolic Panel (14)-3 Reviewed date:10/10/2023 11:50:15 AM Interpretation: Performing Lab:[facility], [address] [facility], Phone - [phone], Director - MDJodry Notes/Report: Glucose 95 70-99 mg/dL BUN 11 [...] ALT (SGPT) 8 0-44 IU/L Albumin/Creatinine Ratio,Uri ne-[id number] Reviewed date:10/10/2023 11:50:18 AM Interpretation: Performing Lab:[facility], [address] [facility], [place], Phone - [phone], Director - MDJodry Notes/Report: Creatinine, Urine TNP Please refer to the following specimen for additional lab results. REF-[id number] Albumin, Urine TNP Test not perf ormed Request Problem TNP Please refer to the following specimen for additional lab results. 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 Problem Generalized anxiety disorder (46396757) Generalized anxiety disorder (F41.1) Active confirmed Problem Atrial fibrillation (61639957) Unspecified atrial fibrillation (I48.91) Active confirmed Problem Cerebral infarction (446830891) Cerebral infarction, unspecified (I63.9) Active confirmed Problem Occlusion and stenosis of multiple and bilateral cerebral arteries (762430693) Occlusion and stenosis of bilateral carotid arteries (I65.23) Active confirmed Problem Chronic obstructive pulmonary disease (05789790) Chronic obstructive pulmonary disease, unspecified (J44.9) Active confirmed Problem Chronic respiratory failure (28504269) Chronic respiratory failure with hypoxia (J96.11) Active confirmed Problem Localized infection of skin AND/OR subcutaneous tissue (740240300) Local infection of the skin and subcutaneous tissue, unspecified (L08.9) Active confirmed Problem Cervical radiculopathy (23658616) Radiculopathy, cervical region (M54.12) Active confirmed Problem Muscle weakness (82102014) Muscle weakness (generalized) (M62.81) Active confirmed Problem Solitary pulmonary nodule (734524206) Solitary pulmonary nodule (R91.1) Active confirmed Problem History of excision of intestinal structure (970551554) Acquired absence of other specified parts of digestive tract (Z90.49) Active confirmed Problem Abdominal aortic aneurysm without rupture (06847885) Abdominal aortic aneurysm, without rupture (I71.4) Active confirmed Problem Essential hypertension (24464446) Essential (primary) hypertension (I10) Active confirmed Problem Intestinal obstruction (69117488) Unspecified intestinal obstruction, unspecified as to partial versus complete obstruction (K56.609) Active confirmed Problem History of disease caused by Severe acute respiratory syndrome coronavirus 2 (situation) (1731078104308034 05) Personal history of COVID-19 (Z86.16) Active confirmed Vital Signs Heart Rate 98 /min 06/04/2024 Temperature 97.6 degrees Fahrenheit 06/04/2024 Blood pressure diastolic 70 mm Hg 06/04/2024 Oximetry 96 % 06/04/2024 Height 65 in 06/04/2024 Blood pressure systolic 120 mm Hg 06/04/2024 Weight 102.2 lbs 06/04/2024 BMI 17.01 kg/m2 06/04/2024 Encounters Encounter Location Date Provider Diagnosis [facility] [address] [place] [address] 06/04/2024 Olga Sarabia [facility] [address] [place] [address] 09/06/2023 CYN FAJAROD Chronic obstructive pulmonary disease, unspecified J44.9 ; Essential (primary) hypertension I10 ; Unspecified atrial fibrillation I48.91 ; Cerebral infarction, unspecified I63.9 and Urinary calculus, unspecified N20.9 [facility] [address] [place] [address] 01/08/2024 CYN FAJARDO Essential (primary) hypertension I10 ; Encounter for general adult medical examination without abnormal findings Z00.00 ; Chronic obstructive pulmonary disease, unspecified J44.9 ; Malignant neoplasm of unspecified part of unspecified bronchus or lung C34.90 ; Unspecified atrial fibrillation I48.91 and Impaired fasting glucose R73.[address] [place] [address] 07/11/[address] [place] [address] 07/18/[address] [place] [address] 07/28/[address] [place] [address] 08/07/[address] [place] [address] 08/09/[address] [place] [address] 08/10/[address] [place] [address] 08/11/2023 ADDISON GUL [facility] [address] [place] [address] 08/17/2023 [facility] [address] [facility] [place] [address] 08/25/2023 [facility] [address] [place] [address] 09/25/2023 [facility] [address] [facility] [place] [address] 10/24/2023 [facility] [address] [place] [address] 12/21/2023 [facility] [address] [facility] [place] [address] 02/27/2024 [facility] [address] [facility] [place] [address] 04/01/2024 [facility] [address] [place] [address] 04/25/2024 [facility] [address] [facility] [place] [address] 05/15/2024 [facility] [address] [facility] [place] [address] 05/23/2024 [facility] [address] [facility] [place] [address] 05/23/2024 [facility] [address] [facility] [place] [address] 05/29/2024 [facility] [address] [facility] [place] [address] 06/05/2024 [facility] [address] [facility] [place] [address] 06/06/2024 ADDISON GUL Assessments Encounter Date Diagnosis (ICD Code) Assessment [...] stone. Status post lithotripsy by urologist at [facility]. His hematuria has improved Screening blood work before next appointment. General health concerns discussed with patient. Scribe services used to formulate this note under HIPAA compliance and under [place] law mandated for scribe services. Patient aware [...] stone. Status post lithotripsy by urologist at [facility]. His hematuria has improved Screening blood work before next appointment. General health concerns discussed with patient. Scribe services used to formulate this note under HIPAA compliance and under [place] law mandated for scribe services. Patient aware [...] stone. Status post lithotripsy by urologist at [facility]. His hematuria has improved Impaired fasting glucose. Dietary restrictions, regimental exercise and weight loss advised. check A1c. Eye screening. He sees his funeral home makeup artist regularly. Dental screening. He sees dentist regularly. Colon cancer screening. He had his colonoscopy done every 4 years. Immunizations. He is up-to-date on his TDAP and pneumonia vaccinations. Blood work reviewed with patient and questions answered. Screening blood work before next appointment. General health concerns discussed with patient. Scribe services used to formulate this note under HIPAA compliance and under [place] law mandated for scribe services. Patient aware [...] stone. Status post lithotripsy by urologist at [facility]. His hematuria has improved Impaired fasting glucose. Dietary restrictions, regimental exercise and weight loss advised. check A1c. Eye screening. He sees his funeral home makeup artist regularly. Dental screening. He sees dentist regularly. Colon cancer screening. He had his colonoscopy done every 4 years. Immunizations. He is up-to-date on his TDAP and pneumonia vaccinations. Blood work reviewed with patient and questions answered. Screening blood work before next appointment. General health concerns discussed with patient. Scribe services used to formulate this note under HIPAA compliance and under [place] law mandated for scribe services. Patient aware [...] stone. Status post lithotripsy by urologist at [facility]. His hematuria has improved Impaired fasting glucose. Dietary restrictions, regimental exercise and weight loss advised. check A1c. Eye screening. He sees his funeral home makeup artist regularly. Dental screening. He sees dentist regularly. Colon cancer screening. He had his colonoscopy done every 4 years. Immunizations. He is up-to-date on his TDAP and pneumonia vaccinations. Blood work reviewed with patient and questions answered. Screening blood work before next appointment. General health concerns discussed with patient. Scribe services used to formulate this note under HIPAA compliance and under [place] law mandated for scribe services. Patient aware [...] stone. Status post lithotripsy by urologist at [facility]. His hematuria has improved Screening blood work before next appointment. General health concerns discussed with patient. Scribe services used to formulate this note under HIPAA compliance and under [place] law mandated for scribe services. Patient aware [...] stone. Status post lithotripsy by urologist at [facility]. His hematuria has improved Screening blood work before next appointment. General health concerns discussed with patient. Scribe services used to formulate this note under HIPAA compliance and under [place] law mandated for scribe services. Patient aware [...] stone. Status post lithotripsy by urologist at [facility]. His hematuria has improved Impaired fasting glucose. Dietary restrictions, regimental exercise and weight loss advised. check A1c. Eye screening. He sees his funeral home makeup artist regularly. Dental screening. He sees dentist regularly. Colon cancer screening. He had his colonoscopy done every 4 years. Immunizations. He is up-to-date on his TDAP and pneumonia vaccinations. Blood work reviewed with patient and questions answered. Screening blood work before next appointment. General health concerns discussed with patient. Scribe services used to formulate this note under HIPAA compliance and under [place] law mandated for scribe services. Patient aware [...] stone. Status post lithotripsy by urologist at [facility]. His hematuria has improved Impaired fasting glucose. Dietary restrictions, regimental exercise and weight loss advised. check A1c. Eye screening. He sees his funeral home makeup artist regularly. Dental screening. He sees dentist regularly. Colon cancer screening. He had his colonoscopy done every 4 years. Immunizations. He is up-to-date on his TDAP and pneumonia vaccinations. Blood work reviewed with patient and questions answered. Screening blood work before next appointment. General health concerns discussed with patient. Scribe services used to formulate this note under HIPAA compliance and under [place] law mandated for scribe services. Patient aware [...] stone. Status post lithotripsy by urologist at [facility]. His hematuria has improved Screening blood work before next appointment. General health concerns discussed with patient. Scribe services used to formulate this note under HIPAA compliance and under [place] law mandated for scribe services. Patient aware [...] stone. Status post lithotripsy by urologist at [facility]. His hematuria has improved Impaired fasting glucose. Dietary restrictions, regimental exercise and weight loss advised. check A1c. Eye screening. He sees his funeral home makeup artist regularly. Dental screening. He sees dentist regularly. Colon cancer screening. He had his colonoscopy done every 4 years. Immunizations. He is up-to-date on his TDAP and pneumonia vaccinations. Blood work reviewed with patient and questions answered. Screening blood work before next appointment. General health concerns discussed with patient. Scribe services used to formulate this note under HIPAA compliance and under [place] law mandated for scribe services. Patient aware [...] LIPID PANEL 11/23/2022 MICROALBUMIN, URINE 11/23/2022 Hemoglobin [id number] 01/08/2024 Albumin/Creatinine Ratio,Urine-270592 Lipid Panel-[id number] 01/08/2024 Comp. Metabolic Panel [id number] 2023 Next Appt Details Provider Name:Olga saldivar, 07/25/2024 03:30:00 PM, [address], [place], [address], Insurance Providers Payer Name Payer Address Payer Phone Subscriber Number Group Number Insured Name Patient Relationship to Insured Coverage Start Date Coverage End Date [employer] Preferred [address] [place] [id number] Dirk Pedro i Self - patient is the insured 2 Medical (General) History Medical History History ICD Code Essential (primary) hypertension I10 Hyperlipidemia, unspecified E78.5 COPD and he sees Dr. Jhaveri Low testosterone levels and he sees Dr. 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 He is currently on Coumadin monitored by Coumadin clinic at [facility]. Pulmonary nodule right lung. Positive on PET scan and planning to have resection by at [facility] Small bowel obstruction and status post resection and he sees Dr. Barr. Cervical radiculopathy and h e follows with [facility] spine and sports and is on narcotics Smokes marijuana for appetite A Fib see Dr Bazzi Personal history of COVID-19 S/P Pasturella infection Surgical History Surgery Date(Month/Year) Small bowel obstruction 06/26/16 cervical spine 09/17/13 Right upper lobectomy at [facility] 09/2018 Hospitalization History Reason Date(Month/Year) right lobectomy 10/13/18
== END 2024-07-05 14:40 | disposition home or self-care (01) ==
LOC: HO.LNP 14:39
PROVIDERS: PCP Hospitalist; Visit Provider Internal Medicine
DX: R91.1 Solitary pulmonary nodule (principal); Z79.01 Long term (current) use of anticoagulants
CPT/HCPCS: 85610; 87070; 87147; 87205; 99211

== ENCOUNTER 2024-07-05 14:39 | Outpatient (AMB) | payer MEDICARE, SELFPAY ==
--- NOTE | 2024-07-05 14:54 | MHC.OFFVISCO ---
Intake Intake Visit Reasons: Anticoagulation Allergies bupropion [From Wellbutrin] Allergy (Intermediate, Verified 07/05/24 14:40) Nausea levofloxacin [From LEVAQUIN] Allergy (Intermediate, Verified 07/05/24 14:40) GI UPSET/ WEIGHT LOSS, anaphylaxis sulfamethoxazole [From Bactrim] Allergy (Intermediate, Verified 07/05/24 14:40) rash trimethoprim [From Bactrim] Allergy (Intermediate, Verified 07/05/24 14:40) rash ibuprofen Allergy (Mild, Verified 07/05/24 14:40) GI DISTRESS Medication List - Last Reconciled 07/05/24 by Cherrie Parker RN acetaminophen 500 mg PO Q6H PRN albuterol sulfate 90 mcg/actuation 2 puffs PO Q6H PRN albuterol sulfate 2.5 mg (3 mL) continuous nebulization QID PRN atorvastatin 20 mg PO DAILY calcium citrate 500 mg (2 x 250 mg calcium) PO BID 90 days carvedilol 3.125 mg PO BID cholecalciferol (vitamin D3) 100 mcg (2 x 50 mcg (2,000 unit)) PO DAILY 90 days cranberry fruit concentrate (Azo Cranberry) PO PRN diltiazem HCl 120 mg PO BID doxycycline hyclate 100 mg PO BID enoxaparin mg See Protocol subcut [ENSURE / BOOST PO DAILY] lwptpmpvkzx-kjcximtnc-vlrlvbbs 100-62.5-25 mcg (Trelegy Ellipta) 1 inh inhalation DAILY 30 days nebulizers As directed oxycodone 10 mg PO Q6H oxycodone ER (OxyContin) 10 mg PO BID Oxygen Home Use As directed [probiotics PO] sertraline 25 mg PO DAILY simethicone (Gas Relief (simethicone)) 160 mg (2 x 80 mg) PO TID PRN 30 days sodium chloride 7% 4 mL inhalation BID theophylline ER 400 mg PO DAILY warfarin 2.5 mg See Protocol PO DAILY Nursing Note INR: 2.5 in therapeutic range- ambulates with o2 on to Anticoag - well for him Medications and supplements reviewed- increased doxycycline from daily to BID No changes in health, diet, or supplements, Denies any signs and symptoms of bleeding or bruising or clotting. Bleeding, bruising, clotting discussed Nutritional guidance given - make sure to keep up weekly greens and ensure while increasing doxyyline Dose: keep same for now 3.75mg x 2 days/ 2.5mg x 5 days F/U INR: 4 weeks per pt request Patient verbalizes understanding of instructions given Anti-Coag Initial Assessment Social Hx Patient Tobacco Use Status: Former Tobacco user Tobacco use type: Cigarette Alcohol intake frequency: does not drink Coding Level of Care Code Est Patient Level 1 Diagnoses Current use of anticoagulant therapy Z79.01 Results AMB INR Fingerstick AMB INR Fingerstick 2.5 Last Edit by Cherrie Parker RN on 07/05/24 14:48 manual entry Assessment & Plan Assessment & Plan (1) Current use of anticoagulant therapy: Code(s): Z79.01 - 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
[2024-07-05 15:36] LABS: ~PT, ~INR - Anti Coag Clinic 2.5 (0.9-1.1)
--- OUTSIDE RECORDS SUMMARY | 2024-07-05 16:11 | XMS_ITS | Patient Health Record ---
Author Organization [facility] Address [address] [place] [address] Care Team Providers Care Yoga Teacher Name Role Phone SCOTTY CYN Primary Care Provider Sarwat Lopez [phone] Allergies Allergen (clinical drug ingredient) Drug/Non Drug [...] 5 MG Oral for 90 Active Creon 79389 UNIT take 1 15-30 minutes before each [...] Problem Screening for malignant neoplasm of colon (860050994) Encounter for screening for malignant neoplasm of colon (Z12.11) Active confirmed Problem Diarrhea (64729432) Diarrhea (R19.7) Active confirmed Problem 376852329 Weight loss (R63.4) Active confirmed Problem Irritable bowel syndrome with diarrhea (857106606) Irritable bowel syndrome with diarrhea (K58.0) Active confirmed Problem 686605142 Flatulence (R14.3) Active confirmed Problem 11490766 Constipation, unspecified constipation type (K59.00) Active confirmed Problem 59008597 Abdominal cramps (R10.9) Active confirmed Problem 70609432 Other ulcerative colitis without complication (K51.80) Active confirmed Problem 184125432 Anemia, unspecified type (D64.9) Active confirmed Problem Ulcerative colitis (04636763) Ulcerative colitis (K51.90) Active confirmed Problem 91299433 Diarrhea, unspecified type (R19.7) Active confirmed Problem 725522650 Chronic pancreatitis, unspecified pancreatitis type (K86.1) Active confirmed Problem Clostridium difficile diarrhea (0988808153422) Clostridium difficile diarrhea (A04.72) Active confirmed Problem Clostridioides difficile infection (487439581) Clostridioides difficile infection (A49.8) Active confirmed Plan Of Treatment Pending Test Test Name Order Date LIVER PROFILE 05/19/2020 LIVER PROFILE 08/24/2016 T4 (THYROXINE) 08/24/2016 TSH (THYROID STIMULATING HORMONE) [...] Date [employer] PREFERRED [address] [place] [address] [id number] LEIGHTON MELGAR Self - patient is the insured Medical (General) History Medical History History ICD Code Most recent colonoscopy was 03/10/2010--no active colitis, no dysplasia on biopsies, no polyps Stroke-causing some partial loss of visi on in the left eye 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 Ramos Hyperlipidemia Ulcerative colitis dating back to the [place],DM,renal disease Chronic back pain--spinal stenosis AAA--approx 3 cm-followed with periodic U/S RUL Lung cancer with surgery as below C.diff infection 04/2020 Colonoscopy 07/2020--normal e xcept for 1 small tubular adenoma--no colitis, no dysplasia Neg. ETT in 05/2021 Surgical History Surgery Date(Month/Year) Perirectal abscess surgery Neck surgery for 3 discs--Dr. 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 Hampton at [facility] 06/2016 RUL lobectomy for cancer-Dr. Newman-no chemo/XRT- told that he is cancer-free 04/2018
--- OUTSIDE RECORDS SUMMARY | 2024-07-05 16:11 | XMS_ITS ---
Author Organization [facility] Address [address] [facility] [address] [place] [address] Care Team Providers Care Embedded Linux Engineer Name Role Phone CYN FAJARDO Primary Care Provider REASON FOR VISIT 06/19/24 [facility] Auth Encounters Encounter Location Date Provider Diagnosis [facility] [address] [facility] [address] [place] [address] 06/05/2024 CYN FAJARDO Plan Of Treatment Next Appt Details Provider Name:Olga saldivar, 07/25/2024 03:30:00 PM, [address] [facility] [address], [place], [address], Progress Notes * Dirk MOMINDOB: [birth year] (74 yo M)Acc No.[id number]:06/05/2024 Patient:?Dirk MOMIN :1950???Age:74 Y???Sex:Male Phone: Address:[address] [facility] [place] [address] * true * Date:? Generated for Printi raven/Fajilg/eTransmitting on:?07/05/2024 04:11 PM EDT
--- OUTSIDE RECORDS SUMMARY | 2024-07-05 16:11 | XMS_ITS ---
Author Organization [facility] Address [address] [facility] [address] [place] [address] Care Team Providers Care Cone Classifier Tender Name Role Phone CYN FAJARDO Primary Care Provider [phone] REASON FOR VISIT [facility] 06/12/24 [facility] Encounters Encounter Location Date Provider Diagnosis [facility] [address] [facility] [address] [place] [address] 06/06/2024 CYN FAJARDO Plan Of Treatment Next Appt Details Provider Name:Olga saldivar, 07/25/2024 03:30:00 PM, [address] [facility] [address], [place], [address], Progress Notes * Dirk MOMINDOB: [birth year] (74 yo M)Acc No.[id number]:06/06/2024 Patient:?Dirk MOMIN :1950???Age:74 Y???Sex:Male Phone: Address:[address] [facility] [address] * true * Date:? Generated for Printi ng/Fajilg/eTransmitting on:?07/05/2024 04:11 PM EDT
--- OUTSIDE RECORDS SUMMARY | 2024-07-05 16:11 | XMS_ITS | Clinical Summary ---
Author Organization [facility] Address [address] [place] [address] Phone Care Team Providers Care Electrician Technician Name Role Phone Timoteo Escamilla MD Primary Care Provider [phone] Allergies Active Allergy Reactions Criticality Noted Date [...] breath activated Inhale into the lungs. Active atorvastatin (LIPITOR) 20 mg tablet Take 1 tablet (20 mg total) by mouth 1 (one) time each day. Active CALCIUM CITRATE-VITAMIN D2 ORAL Take by mouth. Activ e dilTIAZem CD (CARDIZEM CD) 120 mg 24 hr capsule Take 1 capsule (120 mg total) by mouth daily. Active DOXYCYCLINE HYCLATE ORAL Take by mouth. Pt unsure of dosage. Active fluticasone-ume clidinium-vilan terol (Trelegy Ellipta) 100-62.5-25 mcg inhaler Inhale into the lungs. Active guaiFENesin (MUCINEX) 600 mg 12 hr tablet Take 2 tablets (1,200 mg total) by mouth 2 (two) times a day. Active folic acid/multivit-m in/lutein (CENTRUM SILVER ORAL) Take by mouth. Activ e oxyCODONE (ROXICODONE) 10 mg immediate release tablet Take 0.5 tablets (5 mg total) by mouth every 6 hours as needed. Active oxyCODONE (OxyCONTIN) 10 mg 12 hr [...] (125 mcg total) by mouth daily. Active aspirin 81 mg EC tablet Take 1 tablet (81 mg total) by mouth 1 (one) time each day. 2024 Discontinued azithromycin (ZITHROMAX) 250 mg tablet Take 1 tablet (250 mg total) by mouth. 2024 Discontinued fluticasone-nica meterol (ADVAIR DISKUS) 250-50 mcg/dose diskus inhaler Inhale into the lungs. 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 Encounters Date Type Department Care Team Description 07/03/2024 3:00 PM EDT Office Visit [facility] Hematology Oncology [address] [place] [address] Casey Llanes MD Squamous cell carcinoma of right lung (CMS/HCC) (Primary Dx); Pancreatic cyst 07/02/2024 Telephone [facility] Hematology Oncology [address] [place] [address] Casey Llanes MD Recent MRI 06/27/2024 Lab Requisition [facility] [address] [place] [address] Khurram Zambrano PA Gross hematuria 06/25/2024 Lab Requisition [facility] [address] [place] [address] Khurram Zambrano PA Urinary tract infection, site not specified; Gross hematuria from Last 3 Months Immunizations Name Administration Dates Next Due Pfizer SARS-CoV-2 COVID-19, mRNA, LNP-S, preservative free 08/23/2020,08/01/2020 Social History Tobacco Use Types Packs/Day Years Used Date Smoking Tobacco: Never Assessed Sex and Gender Information Value Date Recorded Sex Assigned at Not on file Legal Sex Male 11:23 PM EST Gender Identity Not on file Sexual Orientation Not on file Obstetrics History Last Filed Vital Signs Vital Sign Reading Time Taken Comments Blood Pressure 147/79 07/03/2024 3:01 PM EDT Pulse 105 01/02/2024 3:12 PM EDT Temperature 37.2 ??C (98.9 ??F) 07/03/2024 3:01 PM ED T Respiratory Rate - - Oxygen Saturation 97% 07/03/2024 3:01 PM EDT Inhaled Oxygen Concentration - - Weight 46.3 kg (102 lb) 07/03/2024 3:01 PM EDT Height 162.6 cm (5' 4 ) 10/04/2023 3:32 PM EDT Body Mass Index 17.51 10/04/2023 3:32 PM EDT Plan of Treatment Upcoming Encounters Date Type Department Care Team (Late st Contact Info) Description 01/01/2025 3:00 PM EDT Office Visit [facility] Hematology Oncology [address] [place] [address] Casey Llanes MD [address] [place] [address] Health Maintenance Due Date Last Done Comments Zoster Vaccines (1 of 2) 02/15/1969 COVID-19 Vaccine (3 - Pfizer risk series) 09/20/2020 08/23/2020, 08/01/2020 Cholesterol Screening (Lipid Panel) 03/27/2022 Colorectal Cancer Screening: Colonoscopy 03/27/2022 Depression Screening 03/27/2022 Falls Risk Assessment 03/27/2022 Hepatitis C Screening 03/27/2022 Medicare Annual Wellness Visit 03/27/2022 Social Influencers of Health Screening 03/27/2022 DTaP,Tdap,and Td Vaccines (2 - Td or Tdap) 08/23/2023 08/22/2013 Influenza Vaccine (#1) 2023 3, 03/23/2022, 01/23/2020, Additional history exists RSV Immunization Patients 60+ Years Old (1 - 1-dose 75+ series) 02/15/2024 Pneumococcal Vaccine: 50+ Years Completed 03/07/2024, 03/03/2016 HIB Vaccines Aged Out No longer eligi [...] 20 months Aged Out No longer eligible based on [...] Urine No growth 06/26/2024 2:25 PM EST [facility] Urine Urine specimen obtained by clean catch procedure / Unknown 06/25/2024 1:15 PM EST 06/25/2024 6:08 PM EST us Khurram DEGROOT LAB MICROBIOLOGY - GE NERAL ORDERABLES Final Result [facility] [address] [place] [address], from Last 3 Months Insurance [employer] Care Teams Electrician Technician Relationship Specialty Start Date End Date Timoteo Escamilla MD [address] [place] [address] PCP - General 02/23/22
--- OUTSIDE RECORDS SUMMARY | 2024-07-05 16:11 | XMS_ITS | Clinical Summary ---
Author Organization [facility] Address [address] [place] [address] Care Team Providers Care Tax Compliance Representative Name Role Phone Timoteo Escamilal MD Primary Care Provider [phone] Allergies Active Allergy Reactions Criticality Noted Date [...] age to complete this topic Care Teams Tax Compliance Representative Relationship Specialty Start Date End Date Timoteo Escamilla MD [address] [place] [address] PCP - General Internal Medicine 02/23/22
--- OUTSIDE RECORDS SUMMARY | 2024-07-05 16:12 | XMS_ITS | Encounter Summary ---
Author Organization [facility] Address [address] [place] [address] Care Team Providers Care Polls Or Surveys Interviewer Name Role Phone Timoteo Escamilla MD Primary Care Provider [phone] Reason for Visit * Reason Comments Follow-up Encounter Details Date Type Department Care Team (Late st Contact Info) Description 07/03/2024 3:00 PM EDT Office Visit [facility] Hematology Oncology [address] [place] [address] Casey Llanes MD [address] [place] [phone] Squamous cell carcinoma of right lung (CMS/HCC) (Primary Dx); Pancreatic cyst Social History Tobacco Use Types Packs/Day Years Used Date Smoking Tobacco: Never Assessed Sex and Gender Information Value Date Recorded Sex Assigned at Not on file Legal Sex Male 11:23 PM EST Gender Identity Not on file Sexual Orientation Not on file documented as of this encounter Last Filed Vital Signs Vital Sign Reading Time Taken Comments Blood Pressure 147/79 07/03/2024 3:01 PM EDT Pulse - - Temperature 37.2 ??C (98.9 ??F) 07/03/2024 3:01 PM ED T Respiratory Rate - - Oxygen Saturation 97% 07/03/2024 3:01 PM EDT Inhaled Oxygen Concentration - - Weight 46.3 kg (102 lb) 07/03/2024 3:01 PM EDT Height - - Body Mass Index 17.51 10/04/2023 3:32 PM EDT documented in this encounter Progress Notes * Casey Llanes MD - 07/03/2024 3:00 PM EDT Diagnosis/treatment: #1 Pancreatic cysts. #2 Stage IA T1aN0 squamous cell lung cancer, diagnosed in 08/2018. The patient underwent a right upper lobectomy and mediastinal julia dissection on 09/12/2018. Interval history: The patient is a formerly smoking 74-year-old gentleman who underwent abdominal surgery for volvulus in 2016 and subsequently had gradual weight loss from 142 pounds in 2017 to 108 pounds in late 2021. He reports chronic intermittent anorexia and chronic early satiety. A low-dose screening chest CT in the spring 2018 showed a 1.0 cm posterior right upper lobe nodule which had enlarged from a previous CT in 2018. A PET/CT showed uptake in the nodule, suspicious for neoplasm, no uptake in other sites. He underwent a right upper lobectomy and mediastinal julia dissection on 09/12/[address] Newman and the pathology revealed a 1.0 cm grade 2 squamous cell carcinoma. Visceral pleural was not present. LVI was not present. 0 of 6 perihilar/intraparenchymal nodes were involved with tumor; 0 of 1 sump nodes were involved with tumor; 0 of 2 R4 nodes were involved with tumor; 0 of 1 level 7 nodes were involved with tumor; 0 of 3 level 10 nodes were involved with tumo r. He is followed with serial chest CTs. [facility]ular [facility] and was otherwise unremarkable. A chest CT without contrast on 02/27/2023 at [facility] showed stable findings. An A/P CT with IV and oral contrast on 02/16/2022 showed 2 pancreatic cysts, measuring 0.8 cm in the head with thin internal septa and 1.6 cm in the tail thin internal septa. An abdominal MRI with contrast on 03/23/2022 showed nonenhancing thin-walled pancreatic cystic lesions, measuring up to 0.7 cm in the head and 1.3 cm in the tail. An abdominal MRI with contrast on 10/03/2022 showed stable findings. An abdominal MRI with contrast on 03/27/2023 showed an stable pancreatic head cyst and an enlarging 1.7 x 1.1 pancreatic tail cyst. He developed hematuria in early 2023. An A/P CT with IV contrast on 07/19/2023 showed a 1.7 cm pancreatic tail cystic lesion and showed a 1 cm calculus in the proximal right ureter with minimal right hydronephrosis and minimal right perinephric stranding and segmental wall thickening of the cecum to hepatic flexure. He underwent a right ureteral stent placement and laser lithotripsy on 08/21/2023. The hematuria resolved. He had recurrent hematuria in late 2024. An A/P CT with IV contrast on 06/27/2024 showed single punctate bilateral renal calculi and a trabeculated thickened bladder wall and was otherwise unremarkable. An abdominal MRI with IV contrast on 07/23/2023 showed a 2.1 cm pancreatic tail cystic lesion without suspicious features and multiple other pancreatic cystic lesions including a 1.4 cm pancreatic neck lesion and a 1.9 cm uncinate process lesion without suspicious features. An abdominal MRI with IV contrast on 10/18/2023 showed a stable 1.9 cm pancreatic uncinate process cystic lesion without suspicious features and a stable 2.1 cm pancreatic tail cystic lesion without suspicious features and multiple other pancreatic cystic lesions without suspicious features. An abdominal MRI with contrast on 06/12/2024 showed a decreasing 1.7 cm pancreatic head cystic lesion, a decreasing 1.8 cm uncinate process lesion, and a stable 1.8 cm pancreatic tail cystic lesion. He underwent a bronchoscopy in the spring [address] Jhaveri and bacterial cultures grew a drug-resistant organism. He completed a course of doxycycline x [address] without contrast on 11/29/2023 at [facility] reportedly showed stable findings. He reports chronic mild left-sided abdominal pain in the mornings since the 2017 volvulus surgery. He reports chronic intermittent anorexia and chronic early satiety. He reports weight loss. He lostweight from 114 pounds on 04/26/2023 down to 101 pounds on 10/04/2023. His weight was stable over the last interval. Due to concern about his weight loss, he underwent an EGD and colonoscopy on 05/22/2024. 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 Random duodenal biopsies were taken and the pathology showed duodenal mucosa with focal foveolar metaplasia. Gastric biopsies were taken and the pathology showed gastric oxyntic type mucosa without pathologic change and antral-type mucosa with focal intestinal metaplasia and mild chemical gastritis. No H. pylori organisms were identified. The colonoscopy revealed 2 cecal polyps and a sigmoid colon polyp which were excised and demonstrated to be tubular adenomas x 3. A random colon biopsy was takenand the pathology revealed colonic mucosa without pathologic change. He denies constipation or diarrhea. He denies melena or hematochezia. He denies fevers, chills, or sweats. He denies unusual bone pain. He reports chronic moderate dyspnea on exertion due to COPD. He denies cough or hemoptysis. He denies headaches or visual changes. Past medical history: Hypertension, hyperlipidemia, COPD, abdominal aortic aneurysm, S/P CVA in 2009, cervical radiculopathy, atrial fibrillation. Current medications: Theophylline, Mucinex, mesalamine, dicyclomine, Cardizem, atorvastatin, Trelegy Ellipta, albuterol,calcium, vitamin D, multivitamin, oxycodone, ProAir, warfarin, testing, Zofran, prednisone, fentanyl, Pepto-Bismol, metoprolol, Anora Ellipta. Allergies: Levofloxacin causes anaphylaxis, Motrin, Wellbutrin. Family history: His father was diagnosed with lung cancer at age 72 and survived that diagnosis. His mother had no history of cancer. His paternal aunt was diagnosed with cancer and in her 80s. He has no siblings. His daughter has no history of cancer. 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 He is . He has 1 daughter and 1 grandson. He denies recent alcohol use. He started smoking at age 18 and smoked up to 2 packs a day andquit at age 71. Review of systems: The remainder of a 10 point review of systems was unremarkable. Physical examination: HEENT: Sclerae anicteric, normal oropharyngeal membrane. Neck: No lymphadenopathy. Lungs: Clear to auscultation. Heart: No murmurs. Abdomen: Soft, nontender, no organomegaly or masses. Extremities: No edema. Skin: No rash. Neurologic: Normal gait. Assessment/plan: The patient is a 74-year-old gentleman who was referred for evaluation of pancreatic cysts seen on a CT. An abdominal MRI in late 02/2022 showed nonenhancing pancreatic cystic lesions, not suspiciousfor neoplasm. An abdominal MRI in early 03/2023 showed an enlarging 1.7 cm pancreatic tail cyst. I referred him to [facility] for consideration of an EGD/EUS for aspiration of the cyst. [facility] is following MRIs. He presented in 08/2018 with a stage IA T1aN0 squamous cell lung cancer. He underwent a right upper lobectomy and mediastinal julia dissection on 09/12/2018. He is compliant with his surveillance chestCTs which have shown no evidence of recurrence. He has had gradual weight loss since undergoing volvulus surgery in 2017, likely a complication from the surgery. He reports chronic intermittent anorexia and chronic intermittent early satiety. He reports weight loss. He lost weight from 114 pounds on 04/26/2023 down to 101 pounds on 10/04/2023. His weight was stable over the last interval. Multiple A/P CTs and abdominal MRIs have not shown strong evidence of neoplasm. He underwent an EGD and colonoscopy in 04/2024 which showed no evidence of neoplasm. He underwent a bronchoscopy in the spring [address] Jhaveri and bacterial cultures grew a drug-resistant organism. He completed a course of doxycycline x [address] without contrast on 11/29/2023 at [facility] reportedly showed stable findings. Visit summary: The patient is a 74-year-old gentleman who presented in 08/2018 with a stage Ia squamous cell lung cancer. He underwent a right upper lobectomy and mediastinal julia dissection. He is compliance with surveillance chest CTs with just showed no evidence of recurrence. He has recurrent hematuria, thought to be secondary to nephrolithiasis. He has had chronic intermittent anorexia, likely secondary tohis prior abdominal surgeries, and significant weight loss. His weight was stable over the last interval. Multiple CTs and MRIs have shown no evidence of neoplasm. He underwent an EGD and colonoscopyin 04/2024 which showed no evidence of neoplasm. I spent 45 minutes during this encounter, reviewing extensive imaging studies, pathology reports, endoscopy reports, performing a history and physical, and providing education and counseling. documented in this encounter Plan of Treatment Upcoming Encounters Date Type Department Care Team (Late st Contact Info) Description 01/01/2025 3:00 PM EDT Office Visit [facility] Hematology Oncology [address] [place] [phone] Casey Llanes MD [address] [place] [address] documented as of this encounter Visit Diagnoses Diagnosis Squamous cell carcinoma of right lung (CMS/HCC)- Primary Pancreatic cyst Cyst and pseudocyst of pancreas documented in this encounter Discontinued Medications Medication Sig Discontinue Reason Start Date End Da te aspirin 81 mg EC tablet Take 1 tablet (81 mg total) by mouth 1 (one) time each day. 07/03/2024 azithromycin (ZITHROMAX) 250 mg tablet Take 1 tablet (250 mg total) by mouth. 07/03/2024 fluticasone-salmeterol (ADVAIR DISKUS) 250-50 mcg/dose diskus inhaler Inhale into the lungs. 07/03/2024 documented as of this encounter Care Teams Polls Or Surveys Interviewer Relationship Specialty Start Date End Date Timoteo Escamilla MD [address] [place] [address] PCP - General 02/23/22 documented as of this encounter
--- OUTSIDE RECORDS SUMMARY | 2024-07-05 16:12 | XMS_ITS | Encounter Summary ---
Author Organization [facility] Address [address] [place] [address] Care Team Providers Care Visual Effects Editor Name Role Phone Timoteo Escamilla MD Primary Care Provider [phone] Reason for Visit * Reason Onset Date Comments Recent MRI 07/02/2024 Encounter Details Date Type Department Care Team (Late st Contact Info) Description 07/02/2024 Telephone [facility] Hematology Oncology [address] [place] [address] Casey Llanes MD [address] [place] [address] Recent MRI Social History Tobacco Use Types Packs/Day Years Used Date Smoking Tobacco: Never Assessed Sex and Gender Information Value Date Recorded Sex Assigned at Not on file Legal Sex Male 11:23 PM EST Gender Identity Not on file Sexual Orientation Not on file documented as of this encounter Progress Notes * Horacio Santiago MA - 07/02/2024 2:08 PM EDT Patient is aware * Casey Llanes MD - 07/02/2024 2:01 PM EDT Patient can keep tomorrow's appointment, will discuss MRI at visit * Horacio Santiago MA - 07/02/2024 1:45 PM EDT Scanned into chart * Casey Llanes MD - 07/02/2024 1:37 PM EDT Where was MRI done? Need report * Aurea Farris - 07/02/2024 1:22 PM EDT Called pt to confirm tomorrow's appt. While on the phone pt mentions he had an MRI scan done about 2 weeks ago in May, ordered by Dr. Pardo. Asks if MD is able to review? documented in this encounter Plan of Treatment Upcoming Encounters Date Type Department Care Team (Late st Contact Info) Description 01/01/2025 3:00 PM EDT Office Visit [facility] Hematology Oncology [address] [place] [phone] Casey Llanes MD [address] [place] [phone] documented as of this encounter Visit Diagnoses Not on filedocumented in this encounter Care Teams Visual Effects Editor Relationship Specialty Start Date End Date Timoteo Escamilla MD [address] [place] [address] PCP - General 02/23/22 documented as of this encounter
--- OUTSIDE RECORDS SUMMARY | 2024-07-05 16:12 | XMS_ITS | Encounter Summary ---
Author Organization [facility] Address [address] [place] [address] Care Team Providers Care Telephone Solicitor Name Role Phone Timoteo Escamilla MD Primary Care Provider [phone] Encounter Details Date Type Department Care Team (Late Contact Info) Description 06/25/2024 Lab Requisition [facility] - Main Lab [address] [facility] [place] [phone] Khurram Zambrano PA [address] [place] [phone] Urinary tract infection, site not specified; Gross [...] Encounters Date Type Department Care Team (Late Contact Info) Description 01/01/2025 3:00 PM EDT Office Visit [facility] Hematology Oncology [address] [place] [phone] Casey Llanes MD [address] [place] [address] documented as of this encounter Procedures Procedure Name Priority Date/Time Associated Diagnosis Comments CULTURE URINE Routine 06/25/2024 1:15 PM EST Urinary tract infection, site not specified Gross hematuria documented in this encounter Results * Culture urine (06/25/2024 1:15 PM EST) Culture, Urine No growth 06/26/2024 2:25 PM EST [facility] Urine Urine specimen obtained by clean catch procedure / Unknown 06/25/2024 1:15 PM EST 06/25/2024 6:08 PM EST [facility] MICROBIOLOGY - NERAL ORDERABLES Final Result [facility] [address] [place] [address], documented in this encounter Visit Diagnoses Diagnosis Urinary tract infection, site not specified Gross hematuria documented in this encounter Care Teams Telephone Solicitor Relationship Specialty Start Date End Date Timoteo Escamilla MD [address] [place] [phone] PCP - General 02/23/22 documented as of this encounter
--- OUTSIDE RECORDS SUMMARY | 2024-07-05 16:12 | XMS_ITS | Encounter Summary ---
Author Organization [facility] Address [address] [place] [address] Care Team Providers Care Manager Call Name Role Phone Timoteo Escamilla MD Primary Care Provider [phone] Encounter Details Date Type Department Care Team (Late Contact Info) Description 06/27/2024 Lab Requisition [facility] - Main Lab [address] [facility] [place] [phone] Khurram Zambrano PA [address] [facility] [address] [place] [phone] Gross hematuria Social History Tobacco Use Types [...] Description 01/01/2025 3:00 PM EDT Office Visit [facility] Hematology Oncology [address] [place] [phone] Casey Llanes MD [address] [place] [address] Pending Results Name Type Priority Associated Diagnoses Date /Time Anatomic pathology outside consult Pathology and Cytology Routine Gross hematuria 06/25/2024 12:00 AM EST documented as of this encounter Visit Diagnoses Diagnosis Gross hematuria documented in this encounter Care Teams Manager Call Relationship Specialty Start Date End Date Timoteo Escamilla MD [address] [place] [address] PCP - General 02/23/22 documented as of this encounter
--- OUTSIDE RECORDS SUMMARY | 2024-07-05 16:12 | XMS_ITS ---
Author Organization [facility] Address [address] [facility] [address] [place] [address] Care Team Providers Care Watch Adjuster Name Role Phone CYN FAJARDO Primary Care Provider [phone] Olga Sarabia Unavailable [phone] Encounters Encounter Location Date Provider Diagnosis [facility] [address] [facility] [address] [place] [address] 06/25/2024 Olga Sarabia Plan Of Treatment Next Appt Details Provider Name:Olga saldivar, 07/25/2024 03:30:00 PM, [address] [facility] [address], [place], [address], Progress Notes * Dirk MOMINDOB: [birth year] (74 yo M)Acc No.[id number]:06/25/2024 Progress Notes Patient:?Dirk MOMIN Provider:Silver Sarabia :1950???Age:74 Y???Sex:Male Gabe e:06/25/2024 Phone: Address:[address] [place] [address] [phone] Pcp:CYN FAJARDO Subjective: * Chief Complaints: * ??? * Medical History:? Objective: * Vitals:? Assessment: Plan: * Treatment: * * Electronic signature of Marty Sarabia PA-C on 07/05/2024 at 04:11 PM EDT Sign off status: Pending * Provider:Silver Sarabia Date:?06/26/[birth year] 25 Generated for Radha carbajal/Lalo/Dio on:?07/05/2024 04:11 PM EDT
== END 2024-07-05 14:57 | disposition home or self-care (01) ==
LOC: HO.ACS 14:39
PROVIDERS: PCP Hospitalist; Visit Provider Internal Medicine
DX: Z79.01 Long term (current) use of anticoagulants (principal)

== ENCOUNTER 2024-08-02 15:09 | Outpatient (AMB) | payer MEDICARE, SELFPAY ==
--- OUTSIDE RECORDS SUMMARY | 2024-08-02 15:11 | XMS_ITS | Clinical Summary ---
Author Organization [facility] Address [address] [place] [address] Phone Care Team Providers Care Bean Roaster Name Role Phone Timoteo Escamilla MD Primary Care Provider [phone] Allergies Active Allergy Reactions Criticality Noted Date [...] by mouth. Pt unsure of dosage. 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 ([facility] V24, [facility] V28) 04/23/2022 Encounters Date Type Department Care Team Description 07/03/2024 3:00 PM EDT Office Visit [facility] Hematology Oncology [address] [place] [address] Casey Llanes MD Squamous cell carcinoma of right lung ([facility] V24, [facility] V28) (Primary Dx); Pancreatic cyst 07/02/2024 Telephone [facility] Hematology Oncology [address] [place] [address] Casey Llanes MD Recent MRI 06/27/2024 Lab Requisition [facility] [address] [place] [address] Khurram Zambrano PA Gross hematuria 06/25/2024 Lab Requisition [facility] [address] [place] [address] Khurram Zambrano PA Urinary tract infection, site not specified; Gross hematuria from Last 3 Months Immunizations Name Administration Dates Next Due [facility] SARS-CoV-2 COVID-19, mRNA, LNP-S, preservative free 08/23/2020,08/01/2020 [...] Description 01/01/2025 3:00 PM EDT Office Visit [facility] Hematology Oncology [address] [place] [address] Casey Llanes MD [address] [place] [address] Health Maintenance Due Date Last [...] (2 - Td or Tdap) 08/23/2023 08/22/2013 RSV Immunization Adult Patients (1 - 1-dose 75+ series) 02/15/2024 Influenza Vaccine (Season Ended) 2024 02/24/2023, 03/23/2022, 01/23/2020, Additional history exists Pneumococcal Vaccine: 50+ Years Completed 03/07/2024, 03/03/2016 [...] age to complete this topic Meningococcal B Vaccine Aged Out No l onger eligible based on patient's age to complete [...] tract infection, site not specified Gross hematuria AP OUTSIDE CONSULT Routine 06/25/2024 12 :00 AM EST Gross hematuria from Last 3 Months Results * Culture urine (06/25/2024 1:15 PM EST) Culture, Urine No growth 06/26/2024 2:25 PM EST [facility] Urine Urine specimen obtained by clean catch procedure / Unknown 06/25/2024 1:15 PM EST 06/25/2024 6:08 PM EST us [facility] MICROBIOLOGY - GE NERAL ORDERABLES Final Result [facility] [address] [place] [address], [place] [phone] * Anatomic pathology outside consult (06/25/2024 12:00 AM EST) Final Diagnosis A. Urine, Voided, ([id number]): Negative for high grade urothelial carcinoma. Results of UroVysion fluorescence in situ hybridization (FISH) testing: Although FISH was performed, insufficient non-obscured hybridization signals are present for evaluation and interpretation. 07/08/2024 4:42 PM EDT [facility] Clinical Information Gross hematuria R31.0 Urine Cytology/FISH (now) 07/08/2024 4:42 PM EDT [facility] Gross Description A. Urine, Voided, ([id number]): Received one ThinPrep slide for cytology and one ThinPrep slide for UroVysion FISH 07/08/2024 4:42 PM EDT [facility] Disclaimer Unless otherwise specified, all tissue is 10% NB formalin fixed and paraffin embedded. Technical pathology services provided by [facility] at [address], [place] [address] (CLIA #[id number]/Amy Stringer MD, Shoe Caser) 07/08/2024 4:42 PM EDT [facility] Tissue Urine specimen from urethra / Unknown 06/25/2024 06/27/2024 4:00 PM EST [facility] PATHOLOGY ORDERAB LES Final Result [facility] [address] [place] [address], from Last 3 Months Insurance [employer] Care Teams Bean Roaster Relationship Specialty Start Date End Date Timoteo Escamilla MD [address] [place] [address] PCP - General 02/23/22
--- OUTSIDE RECORDS SUMMARY | 2024-08-02 15:11 | XMS_ITS | Encounter Summary ---
Author Organization [facility] Address [address] [place] [address] Care Team Providers Care Learning Disabilities Teacher Name Role Phone Timoteo Escamilla MD Primary Care Provider [phone] Encounter Details Date Type Department Care Team (Late Contact Info) Description 06/25/2024 Lab Requisition [facility] [address] [facility] [place] [phone] Khurram Zabmrano PA [address] [place] [phone] Urinary tract infection, site not specified; Gross [...] Description 01/01/2025 3:00 PM EDT Office Visit [facility] Hematology Oncology [address] [place] [phone] Casey Llanes MD [address] [place] [address] documented as of this encounter Procedures Procedure Name Priority Date/Time Associated Diagnosis Comments CULTURE URINE Routine 06/25/2024 1:15 PM EST Urinary tract infection, site not specified Gross hematuria documented in this encounter Results * Culture urine (06/25/2024 1:15 PM EST) Culture, Urine No growth 06/26/2024 2:25 PM EST [facility] Urine Urine specimen obtained by clean catch procedure / Unknown 06/25/2024 1:15 PM EST 06/25/2024 6:08 PM EST [facility]ram [facility] MICROBIOLOGY - NERAL ORDERABLES Final Result [facility] [address] [place] [address], documented in this encounter Visit Diagnoses Diagnosis Urinary tract infection, site not specified Gross hematuria documented in this encounter Care Teams Learning Disabilities Teacher Relationship Specialty Start Date End Date Timoteo Escamilla MD [address] [place] [phone] PCP - General 02/23/22 documented as of this encounter
--- OUTSIDE RECORDS SUMMARY | 2024-08-02 15:11 | XMS_ITS ---
Author Organization [facility] Address [address] [place] [address] Care Team Providers Care Eye Dropper Assembler Name Role Phone LEIRekha ADDISON Primary Care Provider [phone] Olga Sarabia Unavailable [phone] REASON FOR VISIT Preop Encounters Encounter Location Date Provider Diagnosis [facility] [address] [place] [address] 07/25/2024 Olga Sarabia Plan Of Treatment No Information Progress Notes * Dirk MOMINDOB: [birth year] (74 yo M)Acc No.[id number]:07/25/2024 Patient:?LILIANE Dirk :1950???Age:74 Y???Sex:Male Phone: Address:[address] [place] [address] * true * Date:? Generated for Radha carbajal/Lalo/eTransmitting on:?08/02/2024 03:11 PM EDT
--- OUTSIDE RECORDS SUMMARY | 2024-08-02 15:11 | XMS_ITS ---
Author Organization [facility] Address [address] [place] [address] Care Team Providers Care Security Vehicle Patrol Officer Name Role Phone CYN FAJARDO Primary Care Provider Olga Sarabia Unavailable [phone] Allergies Allergen (clinical drug ingredient) Drug/Non Drug Allergy documented on EMR Reaction Allergy Type Onset Date Status amoxicillin / clavulanate Augmentin hives Drug Allergy Active levofloxacin Levofloxacin anaphylaxis Drug Allergy Active Motrin Unknown Drug Allergy Active Wellbutrin Unknown Drug Allergy Active REASON FOR VISIT PV Eye-No labs/EKG needed Medications Medication SIG (Take, Route, Frequency, Duration) Notes Start Date End Date Status ProAir RespiClick 108 (90 Base) MCG/ACT 1-2 puff as needed Inhalation every 4 hrs for 30 days Active Carvedilol 3.125 MG TAKE 1 TABLET BY GILBERT TH TWICE DAILY WITH FOOD for 30 Active Sertraline HCl 25 MG TAKE 2 TABLETS BY M OUTH EVERY DAY for 30 days Active dilTIAZem HCl 120 MG TAKE 1 TABLET BY MO UTH TWICE DAILY DIRECTED for 54 Active Lovenox 60 MG/0.6ML 60 mg Injection daily for 5 days take it every day in the morning subcutaneous. Do not take on the day of procedure 08/11/2023 Active Warfarin Sodium 2.5 MG TAKE 1 TABLET BY MOUTH EVERY DAY for 90 Active Cardizem CD 240 MG 1 capsule Orally Onc e a day Active Azithromycin 250 MG 1 tablet Orally 2 tablets on the first day, then 1 tablet daily for 5 days 04/28/2023 Active oxyCODONE HCl 15 MG 1 tablet Orally ever y 6 hrs PSSP Active ProAir HFA 108 (90 Base) MCG/ACT 2 puffs as needed Inhalation every 6 hrs for 30 days Active Calcium Citrate 250 MG 1 tablet Orally O nce a day Active Vitamin D2 2000 UNIT 1 tablet Orally Onc e a day Active Atorvastatin Calcium 40 MG 1 tablet Orally Once a day Active Trelegy Ellipta 100-62.5-25 MCG/INH 1 puff Inhalation Once a day Active Centrum Silver - as directed Orally o ne daily Active Theophylline ER 400 MG 1 tablet Orally O nce a day Active Mucinex 600 MG 1 tablet as needed Orally every 12 hrs Active Doxycycline Active Enoxaparin Sodium 60 MG/0.6ML as directed Subcutaneous twice daily for 5 days 09/05/2018 Unknown Anoro Ellipta 62.5-25 MCG/INH 1 puff Inhalation Once a day Unknown fentaNYL 12 MCG/HR 1 patch to skin Transdermal PSSP Unknown Pepto-Bismol As needed Unknown predniSONE 20 MG as directed Orally O nce a day for 30 days 01/07/2021 Unknown Zofran 4 MG 1 tablet Orally bid as needed for 14 days 05/17/2019 Unknown Metoprolol Tartrate 25 MG 1 tablet with food Orally Twice a day for 90 Unknown Amoxicillin 500 MG 1 capsule Orally valentin ry 8 hrs for 5 days 05/12/2023 Unknown Testim 50 MG/5GM (1%) 1 packet to skin i n the morning Transdermal Once a day for 30 days 08/11/2021 Unknown Benzonatate 100 MG 1 capsule as needed Orally Three times a day for 7 days 04/28/2023 Unknown predniSONE 20 MG 1 tablet Orally Once a day for 7 days 04/28/2023 Unknown Megestrol Acetate 40 MG 1 tablet Orally Once a day for 30 days 02/24/2023 Unknown Mesalamine 800 MG 1 tablet Orally twic e a day Unknown Dicyclomine HCl 10 MG 1-2 capsules Orall y every 4-6 hours Unknown Social History Tobacco Use: Social History Observation Description Date Details (start date - stop date) Former Smoker NA - NA Tobacco Use/Smoking Question Answer Notes Are you a former smoker Alcohol Screen (Audit-C) Question Answer Notes Did you have a drink containing alcohol in the p ast year? No Points 0 Interpretation Negative Vital Signs Temperature 97.9 degrees Fahrenheit 07/26/19 25 Oximetry 100 % 07/25/2024 Heart Rate 95 /min 07/25/2024 Blood pressure systolic 120 mm Hg 07/26/19 25 Blood pressure diastolic 72 mm Hg 025 Weight 95.4 lbs 07/25/2024 BMI 15.87 kg/m2 07/25/2024 Height 65 in 07/25/2024 Encounters Encounter Location Date Provider Diagnosis [facility] [address] [place] [address] 07/25/2024 Olga Sarabia Pre-operative examination Z01.818 and Impaired fasting glucose R73.01 Assessments Encounter Date Diagnosis (ICD Code) Assessment Notes Treatment Notes Treatment Clinical Notes Section Notes 07/25/2024 Pre-operative examination (ICD-10 - Z01.818) Mr. Momin is a 74-year-old gentleman with hypertension, hyperlipidemia, COPD, low testosterone, AAA, cervical radiculopathy, atrial fibrillation and status post lung cancer and resection of the right upper lobe here for pre-op cataract surgery BL, on August 05/2025 with [facility] eye [facility] with Dr. Robledo. Plan as follows: pre-op Cardiac assessment. Patient can easily do 4 METS. Blood pressure and exam is within normal limits. Pulmonary assessment. Lung exam is normal. No further Intervention NPO on the day of surgery. Take your medications after the surgery. Hold NSAIDs and aspirin 5 days before the procedure. He is currently on Coumadin he does follow with Coumadin clinic at [facility] Advised patient to check with the eye doctor on when to stop medication given that it is aA minimal invasive surgery usually it is stopped 5 days prior to the surgery and then resumed after however warfarin protocol should be followed. Patient is to check with the Coumadin clinic as well Low risk procedure in a low risk patient. No contraindications for the procedure at this point in time EKG is performed in the office today with heart rate of 79 bpm, sinus rhythm. No ST elevation or depression. No bundle branch block Impaired fasting glucose - Dietary modification discussed Recent blood work has been reviewed. Questions have been answered to General concerns have been discussed I have rendered the services for this patient under direct supervision of Dr. Fajardo, who did not see the patient but was available upon request 07/25/2024 Impaired fasting glucose (ICD-10 - R73.01) Mr. Momin is a 74-year-old gentleman with hypertension, hyperlipidemia, COPD, low testosterone, AAA, cervical radiculopathy, atrial fibrillation and status post lung cancer and resection of the right upper lobe here for pre-op cataract surgery BL, on August 05/2025 with [facility] eye care with Dr. Robledo. Plan as follows: pre-op Cardiac assessment. Patient can easily do 4 METS. Blood pressure and exam is within normal limits. Pulmonary assessment. Lung exam is normal. No further Intervention NPO on the day of surgery. Take your medications after the surgery. Hold NSAIDs and aspirin 5 days before the procedure. He is currently on Coumadin he does follow with Coumadin clinic at [facility] Advised patient to check with the eye doctor on when to stop medication given that it is aA minimal invasive surgery usually it is stopped 5 days prior to the surgery and then resumed after however warfarin protocol should be followed. Patient is to check with the Coumadin clinic as well Low risk procedure in a low risk patient. No contraindications for the procedure at this point in time EKG is performed in the office today with heart rate of 79 bpm, sinus rhythm. No ST elevation or depression. No bundle branch block Impaired fasting glucose - Dietary modification discussed Recent blood work has been reviewed. Questions have been answered to General concerns have been discussed I have rendered the services for this patient under direct supervision of Dr. Fajardo, who did not see the patient but was available upon request Plan Of Treatment Next Appt Details Follow Up: Next appointment, Reason: Progress Notes * Dirk MOMINDOB: [birth year] (74 yo M)Acc No.[id number]:07/25/2024 Progress Note Patient:Dirk ZHONG Appointment Provider:Silver Sarabia :1950???Age:74 Y???Sex:Male Sup ervising Provider:Beto Morgan Phone: Date:07/25/2024 Address:[address] [place] [address] , [place] [id number] Pcp:CYN FAJARDO Subjective: * Chief Complaints: * ???PV Eye-No labs/EKG needed * HPI: ???Internal Medicine:?Mr. Momin is a 74-year-old gentleman with hypertension, hyperlipidemia, COPD, low testosterone, AAA, cervical radiculopathy, atrial fibrillation and status post lung cancer and resection of the right upper lobe here for pre-op cataract surgery BL, on August 05/2025 with [facility] eye care with Dr. Robledo. He is non-smoker. He is on Warfarin managed by [facility]. He is able to do 4 METS without CP, SOB, MCGILL. He denies any other active issues. * ROS:?General/Constitutional:?Overall health?Cachetic and protein calorie malnutrition.?Change in appetite?denies.?Chills?denies.?Fever?denies.?Night sweats?denies.?Sleep disturbance?denies.?Weight gain?denies.?Weight loss?denies.?Neurologic:?Difficulty speaking?denies.?Dizziness?denies.?Gait abnormality?denies.?Headache?denies.?Loss of strength?denies.?Memory loss?denies.?Seizures?denies.?Tingling/Numbness?denies .?Ophthalmologic:?Blurred vision?denies.?Discharge?denies.?Dry eye?denies.?Red eye?denies.?ENT:?Change in Voice?Denies.?Cold Symptoms?Denies.?Cough?, Admits.?Dizziness?Denies.?Nasal Congestion?Denies.?Otalgia?Denies.?postnasal drip?Denies.?Blocked ear?denies.?Nosebleed?denies.?Snoring?denies.?Cardiovascular:?Diaphoresis?Denies.?Pedal Edema?Denies.?PND (Paroxsymal nocturnal dyspnea)?Denies.?Chest pain?denies.?Difficulty laying flat?denies.?Dyspnea on exertion?denies.?Heart murmur?denies.?Orthopnea?denies.?Respiratory:?Snoring?denies.?Asthma?denies.?Cough?, admits.?Shortness of breath with exertion?denies.?Sputum production?denies.?Wheezing?denies.?Gastrointestinal:?Change in bowel habits?denies.?Constipation?denies.?Decreased appetite?denies.?Diarrhea?denies.?Heartburn?denies.?Nausea?denies.?Vomiting?srinivasan es.?Musculoskeletal:?tingling/numbness?Denies.?myalgias?Denies.?Joint Swelling?Denies.?extremeties?normal.?Arthritis?denies.?Back problems?denies.?Carpal tunnel?denies.?Joint stiffness?denies.?Muscle aches?denies.?Endocrine:?Bowel Changes?Denies.?Breast Discharge?Denies.?poor libido?Denies.?Cold intolerance?denies.?Excessive sweating?denies.?Excessive thirst?denies.?Frequent urination?denies.?Thyroid problems?denies.?Skin:?Bruising?Denies.?Eczema?denies.?Hair changes?denies.?Rash?denies.?Skin lesion(s)?denies.?Psychiatric:?Anxiety?,admits.?Depressed mood?denies.?Difficulty sleeping?denies.?Nervous breakdown?denies.?Substance abuse?denies.?Urology:?blood in urine?denies.?burning on urination?denies.?difficulty urinating?denies.?discharge?denies.?dysuria?denies.? * Medical History:? * Surgical History:?Small denis l obstruction 06/26/16cervical spine 09/17/13Right upper lobectomy at [facility] 09/2018 * Hospitalization/Major Diagno stic Procedure:?right lobectomy 10/13/18 * Family History:?Father: dece ased 72 yrs, aneurysm, diagnosed with Hypertension.?Mother: 82 yrs, osteoporosis, diagnosed with Hypertension.? * Social History:?Tobacco Use:?Tobacco Use/Smoking?Are you a?former smoker ?Tobacco use other than smoking?do you smoke?smoking for 45 years ???Drugs/Alcohol:?Drugs?Have you used drugs other than those for medical reasons in the past 12 months??Yes ?Marijuana??Yes ?Alcohol Screen (Audit-C)?Did you have a drink containing alcohol in the past year??No ?Points?0 ?Interpretation?Negative ???Miscellaneous:?Marital status: . ?Occupation: Retired. * Medications:?TakingDoxycycli ne Theophylline ER 400 MG Tablet Extended Release 24 Hour 1 tablet Orally Once a day Mucinex 600 MG Tablet Extended Release 12 Hour 1 tablet as needed Orally every 12 hrs Atorvastatin Calcium 40 MG Tablet 1 tablet Orally Once a day Trelegy Ellipta 100-62.5-25 MCG/INH Aerosol Powder Breath Activated 1 puff Inhalation Once a day Calcium Citrate 250 MG Tablet 1 tablet Orally Once a day Vitamin D2 2000 UNIT Tablet 1 tablet Orally Once a day Centrum Silver - Tablet as directed Orally one daily oxyCODONE HCl 15 MG Tablet 1 tablet Orally every 6 hrs , Notes to Pharmacist: PSSPProAir HFA 108 (90 Base) MCG/ACT Aerosol Solution 2 puffs as needed Inhalation every 6 hrs Cardizem CD 240 MG Capsule Extended Release 24 Hour 1 capsule Orally Once a day Azithromycin 250 MG Tablet 1 tablet Orally 2 tablets on the first day, then 1 tablet daily Warfarin Sodium 2.5 MG Tablet TAKE 1 TABLET BY MOUTH EVERY DAY ProAir RespiClick 108 (90 Base) MCG/ACT Aerosol Powder Breath Activated 1-2 puff as needed Inhalation every 4 hrs dilTIAZem HCl 120 MG Tablet TAKE 1 TABLET BY MOUTH TWICE DAILY DIRECTED Lovenox 60 MG/0.6ML Solution Prefilled Syringe 60 mg Injection daily take it every day in the morning subcutaneous. Do not take on the day of procedureCarvedilol 3.125 MG Tablet TAKE 1 TABLET BY MOUTH TWICE DAILY WITH FOOD Sertraline HCl 25 MG Tablet TAKE 2 TABLETS BY MOUTH EVERY DAY Taking Doxycycline Taking Theophylline ER 400 MG Tablet Extended Release 24 Hour 1 tablet Orally Once a day Taking Mucinex 600 MG Tablet Extended Release 12 Hour 1 tablet as needed Orally every 12 hrs Taking Atorvastatin Calcium 40 MG Tablet 1 tablet Orally Once a day Taking Trelegy Ellipta 100-62.5-25 MCG/INH Aerosol Powder Breath Activated 1 puff Inhalation Once a day Taking Calcium Citrate 250 MG Tablet 1 tablet Orally Once a day Taking Vitamin D2 2000 UNIT Tablet 1 tablet Orally Once a day Taking Centrum Silver - Tablet as directed Orally one daily Taking oxyCODONE HCl 15 MG Tablet 1 tablet Orally every 6 hrs , Notes to Pharmacist: PSSPTaking ProAir HFA 108 (90 Base) MCG/ACT Aerosol Solution 2 puffs as needed Inhalation every 6 hrs Taking Cardizem CD 240 MG Capsule Extended Release 24 Hour 1 capsule Orally Once a day Taking Azithromycin 250 MG Tablet 1 tablet Orally 2 tablets on the first day, then 1 tablet daily Taking Warfarin Sodium 2.5 MG Tablet TAKE 1 TABLET BY MOUTH EVERY DAY Taking ProAir RespiClick 108 (90 Base) MCG/ACT Aerosol Powder Breath Activated 1-2 puff as needed Inhalation every 4 hrs Taking dilTIAZem HCl 120 MG Tablet TAKE 1 TABLET BY MOUTH TWICE DAILY DIRECTED Taking Lovenox 60 MG/0.6ML Solution Prefilled Syringe 60 mg Injection daily take it every day in the morning subcutaneous. Do not take on the day of procedureTaking Carvedilol 3.125 MG Tablet TAKE 1 TABLET BY MOUTH TWICE DAILY WITH FOOD Taking Sertraline HCl 25 MG Tablet TAKE 2 TABLETS BY MOUTH EVERY DAY UnknownMesalamine 800 MG Tablet Delayed Release 1 tablet Orally twice a day Dicyclomine HCl 10 MG Capsule 1-2 capsules Orally every 4-6 hours Megestrol Acetate 40 MG Tablet 1 tablet Orally Once a day Benzonatate 100 MG Capsule 1 capsule as needed Orally Three times a day predniSONE 20 MG Tablet 1 tablet Orally Once a day Amoxicillin 500 MG Capsule 1 capsule Orally every 8 hrs Testim 50 MG/5GM (1%) Gel 1 packet to skin in the morning Transdermal Once a day predniSONE 20 MG Tablet as directed Orally Once a day Zofran 4 MG Tablet 1 tablet Orally bid as needed fentaNYL 12 MCG/HR Patch 72 Hour 1 patch to skin Transdermal , Notes to Pharmacist: Robbin , Notes to Pharmacist: As neededMetoprolol Tartrate 25 MG Tablet 1 tablet with food Orally Twice a day Enoxaparin Sodium 60 MG/0.6ML Solution as directed Subcutaneous twice daily Anoro Ellipta 62.5-25 MCG/INH Aerosol Powder Breath Activated 1 puff Inhalation Once a day Medication List reviewed and reconciled with the patientUnknown Mesalamine 800 MG Tablet Delayed Release 1 tablet Orally twice a day Unknown Dicyclomine HCl 10 MG Capsule 1-2 capsules Orally every 4-6 hours Unknown Megestrol Acetate 40 MG Tablet 1 tablet Orally Once a day Unknown Benzonatate 100 MG Capsule 1 capsule as needed Orally Three times a day Unknown predniSONE 20 MG Tablet 1 tablet Orally Once a day Unknown Amoxicillin 500 MG Capsule 1 capsule Orally every 8 hrs Unknown Testim 50 MG/5GM (1%) Gel 1 packet to skin in the morning Transdermal Once a day Unknown predniSONE 20 MG Tablet as directed Orally Once a day Unknown Zofran 4 MG Tablet 1 tablet Orally bid as needed Unknown fentaNYL 12 MCG/HR Patch 72 Hour 1 patch to skin Transdermal , Notes to Pharmacist: PSSPUnknown Pepto-Bismol , Notes to Pharmacist: As neededUnknown Metoprolol Tartrate 25 MG Tablet 1 tablet with food Orally Twice a day Unknown Enoxaparin Sodium 60 MG/0.6ML Solution as directed Subcutaneous twice daily Unknown Anoro Ellipta 62.5-25 MCG/INH Aerosol Powder Breath Activated 1 puff Inhalation Once a day Medication List reviewed and reconciled with the patient * Allergies:?Levofloxacin: carolyn phylaxis - AllergyMotrin: AllergyWellbutrin: AllergyAugmentin: hives - Side Effectsno[Allergies Verified] Objective: * Vitals:?Temp:97.9F, Oxygen s at %:100%, HR:95/min, BP:120/72mm Hg, Wt:95.4lbs, BMI:15.87Index, Ht: 65 in. * ???Past Orders: ???Lab:Albumin/Creatinine Ra shalonda,Urine-[id number] (Order Date - 01/08/2024) (Collection Date & Time - 07/19/2024 10:22 AM) ? Value Reference Range ?Creatinine, Urine 81.3 No t Estab. - mg/dL ?Albumin, Urine 10.6 Not E stab. - ug/mL ?Alb/Creat Ratio 13 0-29 - mg/g creat ???Lab:Comp. Metabolic Panel ([id number] (Order Date - 01/08/2024) (Collection Date & Time - 07/19/2024 10:22 AM) ? Value Reference Range ?Glucose 106 H 70-99 - mg/d L ?BUN 13 8-27 - mg/dL ?Creatinine 0.88 0.76-1.27 - mg/dL ?BUN/Creatinine Ratio 15 10-24 - ?Sodium 144 134-144 - mmo l/L ?Potassium 4.2 3.5-5.2 - mmol/L ?Chloride 105 96-106 - mm ol/L ?Carbon Dioxide, Total 26 20-29 - mmol/L ?Calcium 8.8 8.6-10.2 - m g/dL ?Protein, Total 5.9 L 6.0-8 .5 - g/dL ?Albumin 3.9 3.8-4.8 - g/ dL ?Globulin, Total 2.0 1.5- 4.5 - g/dL ?Bilirubin, Total <0.2 0.0 -1.2 - mg/dL ?Alkaline Phosphatase 84 44-121 - IU/L ?AST (SGOT) 15 0-40 - IU /L ?ALT (SGPT) 9 0-44 - IU /L ?eGFR 90 >59 - mL/min/1. 73 ???Lab:Lipid Panel-[id number] (O rder Date - 01/08/2024) (Collection Date & Time - 07/19/2024 10:22 AM) ? Value Reference Range ?Cholesterol, Total 163 1 00-199 - mg/dL ?Triglycerides 81 0-149 - mg/dL ?HDL Cholesterol 62 >39 - mg/dL ?VLDL Cholesterol Huan 15 5-40 - mg/dL ?LDL Chol Calc ([facility]) 86 0-99 - mg/dL ???Lab:Hemoglobin [id number] (Order Date - 01/08/2024) (Collection Date & Time - 07/19/2024 10:22 AM) ? Value Reference Range ?Hemoglobin A1c/ Hemoglobin total 5.7 H 4.8-5.6 - % * Examination: ???General Examination: ?Psychiatry?Normal.?GENERAL APPEARANCE:?Well developed, well nourished, in no acute distress.?MUSCULOSKELETAL:?atrophy of interosseous muscles.?HEAD:?Normocephalic, atraumatic.?EYES:?Pupils equal, round, reactive to light and accommodation, sclera non-icteric.?EARS:?Normal.?ORAL CAVITY:?dentures.?THROAT:?Clear.?OROPHARYNX?Normal.?SINUSES?Normal.?NECK/THYROID:?Neck supple, full range of motion, no cervical lymphadenopathy.?SKIN:?Warm and dry, no suspicious lesions.?HEART:?, S1, S2 normal, regular rate and rhythm, no murmurs, rubs, gallops.?LUNGS:?Mild scattered inspiratory wheezes.?BREASTS:?__.?ABDOMEN:?Soft, nontender, nondistended, bowel sounds present,small umbilical hernia.?EXTREMITIES:?Normal.?PERIPHERAL PULSES:?Normal.?NEUROLOGIC:?Nonfocal,? appropriate?motor strength normal upper and lower extremities, sensory exam intact.?FEMALE GENITOURINARY:?__.?MALE GENITOURINARY:?__.?PODIATRIC:?Normal.?It Application Support Analyst? .? Assessment: * Assessment: 1.?Pre-operative examination - Z01.818 (Primary)???2.?Impaired fasting glucose - R73.01??? Mr. Momin is a 74-year-old gentleman with hypertension, hyperlipidemia, COPD, low testosterone, AAA, cervical radiculopathy, atrial fibrillation and status post lung cancer and resection of the right upper lobe here for pre-op cataract surgery BL, on August 05/2025 with [facility] eye care with Dr. Robledo. Plan as follows: pre-op Cardiac assessment. Patient can easily do 4 METS. Blood pressure and exam is within normal limits. Pulmonary assessment. Lung exam is normal. No further Intervention NPO on the day of surgery. Take your medications after the surgery. Hold NSAIDs and aspirin 5 days before the procedure. He is currently on Coumadin he does follow with Coumadin clinic at [facility] Advised patient to check with the eye doctor on when to stop medication given that it is aA minimal invasive surgery usually it is stopped 5 days prior to the surgery and then resumed after however warfarin protocol should be followed.? Patient is to check with the Coumadin clinic as well Low risk procedure in a low risk patient. No contraindications for the procedure at this point in time EKG is performed in the office today with heart rate of 79 bpm, sinus rhythm.? No ST elevation or depression.? No bundle branch block Impaired fasting glucose - Dietary modification discussed Recent blood work has been reviewed.? Questions have been answered to General concerns have been discussed I have rendered the services for this patient under direct supervision of Dr. Fajardo, who did not see the patient but was available upon request Plan: * Treatment: * Procedure Codes:?55643 ELECT ROCARDIOGRAM, COMPLETE * Follow Up:?Next appointment * Images: Review Notes: Beto Morgan 2024-07-25 16:10:30* Electronically co-signed by Beto Morgan on 07/25/2024 at 04:10 PM EDT Sign off status: Completed true * Appointment Provider:?Olga Martinez te:?07/25/2024 Generated for Radha carbajal/Lalo/eTransmitting on:?08/02/2024 03:11 PM EDT History and Physical Notes * HPI (History of Present Illness) Category Sub-Category Detail Notes Category Not es Internal Medicine Mr. Óscar younger is a 74-year-old gentleman with hypertension, hyperlipidemia, COPD, low testosterone, AAA, cervical radiculopathy, atrial fibrillation and status post lung cancer and resection of the right upper lobe here for pre-op cataract surgery BL, on August 05/2025 with [facility] eye care with Dr. Robledo. He is non-smoker. He is on Warfarin managed by [facility]. He is able to do 4 METS without CP, SOB, MCGILL. He denies any other active issues. Examination Category Sub-Category Detail Notes Category Not es General Examination GENERAL APPEARANCE: Well dev eloped, well nourished, in no acute distress HEAD: Normocephalic, atrau matic EYES: Pupils equal, round, reactive to light and accommodation, sclera non-icteric EARS: Normal THROAT: Clear NECK/THYROID: Neck supple, full ra nge of motion, no cervical lymphadenopathy HEART: , S1, S2 normal, reg ular rate and rhythm, no murmurs, rubs, gallops LUNGS: Mild scattered inspi ratory wheezes ABDOMEN: [...] Normal Psychiatry Normal OROPHARYNX Normal SINUSES Normal It Application Support Analyst
--- OUTSIDE RECORDS SUMMARY | 2024-08-02 15:11 | XMS_ITS ---
Author Organization [facility] Address [address] [place] [address] Care Team Providers Care Line Supply Name Role Phone CYN FAJARDO Primary Care Provider REASON FOR VISIT [facility] Referral Encounters Encounter Location Date Provider Diagnosis [facility] [address] [place] [address] 07/16/2024 CYN FAJARDO Plan Of Treatment No Information Progress Notes * Dirk MOMINDOB: [birth year] (74 yo M)Acc No.[id number]:07/16/2024 Patient:?Dirk MOMIN :1950???Age:74 Y???Sex:Male Phone: Address:[address] [place] [address] * true * Date:? Generated for Héctori raven/Lalo/eTransmitting on:?08/02/2024 03:11 PM EDT
--- OUTSIDE RECORDS SUMMARY | 2024-08-02 15:11 | XMS_ITS | Clinical Summary ---
Author Organization [facility] Address [address] [place] [address] Care Team Providers Care Garment Parts Cutter Machine Name Role Phone Timoteo Escamilla MD Primary Care Provider [phone] Allergies Active Allergy Reactions Criticality Noted Date [...] age to complete this topic Care Teams Garment Parts Cutter Machine Relationship Specialty Start Date End Date Timoteo Escamilla MD [address] [place] [address] PCP - General Internal Medicine 02/23/22
--- OUTSIDE RECORDS SUMMARY | 2024-08-02 15:11 | XMS_ITS | Patient Health Record ---
Author Organization [facility] Address [address] [place] [address] Care Team Providers Care Deputy Administrator Name Role Phone SCOTTY CYN Primary Care Provider Sarwat Lopez [phone] Allergies Allergen (clinical drug ingredient) Drug/Non Drug [...] 5 MG Oral for 90 Active Creon 74917 UNIT take 1 15-30 minutes before each [...] Problem Screening for malignant neoplasm of colon (830666319) Encounter for screening for malignant neoplasm of colon (Z12.11) Active confirmed Problem Diarrhea (45623841) Diarrhea (R19.7) Active confirmed Problem 340944400 Weight loss (R63.4) Active confirmed Problem Irritable bowel syndrome with diarrhea (000751666) Irritable bowel syndrome with diarrhea (K58.0) Active confirmed Problem 030316198 Flatulence (R14.3) Active confirmed Problem 89350236 Constipation, unspecified constipation type (K59.00) Active confirmed Problem 27360733 Abdominal cramps (R10.9) Active confirmed Problem 77602704 Other ulcerative colitis without complication (K51.80) Active confirmed Problem 998442267 Anemia, unspecified type (D64.9) Active confirmed Problem Ulcerative colitis (75436257) Ulcerative colitis (K51.90) Active confirmed Problem 75478344 Diarrhea, unspecified type (R19.7) Active confirmed Problem 900575030 Chronic pancreatitis, unspecified pancreatitis type (K86.1) Active confirmed Problem Clostridium difficile diarrhea (4203616781635) Clostridium difficile diarrhea (A04.72) Active confirmed Problem Clostridioides difficile infection (358104387) Clostridioides difficile infection (A49.8) Active confirmed Plan Of Treatment Pending Test Test Name Order Date LIVER PROFILE 05/19/2020 LIVER PROFILE 08/24/2016 T4 (THYROXINE) 08/24/2016 TSH (THYROID STIMULATING HORMONE) 2016 IRON + IBC (FE) 08/24/2016 IRON + IBC (FE) 05/19/2020 FERRITIN 08/24/2016 FERRITIN 05/19/2020 CRP 05/19/2020 VITAMIN B12 AND FOLATE 05/19/2020 VITAMIN B12 AND FOLATE 08/24/2016 CBC w DIFF 05/19/2020 CBC w DIFF 08/24/2016 SED RATE (ESR) 05/19/2020 STOOL WBC 05/19/2020 CELIAC PANEL #10 12/29/2020 GIARDIA AG, STOOL EIA 05/19/2020 OVA & PARASITES (O&P) 05/19/2020 CULTURE, STOOL 05/19/2020 TSH REFLEX FREE T4 05/19/2020 C DIFFICILE RFLX PCR 06/09/2020 C DIFFICILE RFLX PCR 05/19/2020 Future Test Test Name Order Date COLONOSCOPY 12/11/2014 COLONOSCOPY 05/26/2020 Insurance Providers Payer Name Payer Address Payer Phone Subscriber Number Group Number Insured Name Patient Relationship to Insured Coverage Start Date Coverage End Date [employer] [address] [place] [address] [phone] [id number] LEIGHTON MELGAR Self - patient is the insured Medical (General) History Medical History History ICD Code Most recent colonoscopy was 03/10/2010--no active colitis, no dysplasia on biopsies, no polyps Stroke-causing some partial loss of visi on in the left eye 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 Ramos Hyperlipidemia Ulcerative colitis dating back to the Denies DC,DM,renal disease Chronic back pain--spinal stenosis AAA--approx 3 cm-followed with periodic U/S RUL Lung cancer with surgery as below C.diff infection 04/2020 Colonoscopy 07/2020--normal e xcept for 1 small tubular adenoma--no colitis, no dysplasia Neg. ETT in 05/2021 Surgical History Surgery Date(Month/Year) Perirectal abscess surgery Neck surgery for 3 discs--Dr. 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 Hampton at [facility] 06/2016 RUL lobectomy for cancer-Dr. Newman-no chemo/XRT- told that he is cancer-free 04/2018
--- OUTSIDE RECORDS SUMMARY | 2024-08-02 15:12 | XMS_ITS | Encounter Summary ---
Author Organization [facility] Address [address] [place] [address] Care Team Providers Care Mortgage Loan Computation Clerk Name Role Phone Timoteo Escamilla MD Primary Care Provider [phone] Encounter Details Date Type Department Care Team (Late Contact Info) Description 06/27/2024 Lab Requisition [facility] - Main Lab [address] [facility] [place] [address] Khurram Zambrano PA [address] [place] [phone] Gross hematuria Social History Tobacco Use Types [...] 3:00 PM EDT Office Visit [facility] Hematology Oncology [address] [place] [address] Casey Llanes MD [address] [place] [address] documented as of this encounter Procedures Procedure Name Priority Date/Time Associated Diagnosis Comments AP OUTSIDE CONSULT Routine 06/25/2024 12 :00 AM EST Gross hematuria documented in this encounter Results * Anatomic pathology outside consult (06/25/2024 12:00 AM EST) Final Diagnosis A. Urine, Voided, ([id number]): Negative for high grade urothelial carcinoma. Results of [facility] fluorescence in situ hybridization (FISH) testing: Although FISH was performed, insufficient non-obscured hybridization signals are present for evaluation and interpretation. 07/08/2024 4:42 PM EDT [facility] Clinical Information Gross hematuria R31.0 Urine Cytology/FISH (now) 07/08/2024 4:42 PM EDT [facility] Gross Description A. Urine, Voided, ([id number]): Received one ThinPrep slide for cytology and one ThinPrep slide for UroVysion FISH 07/08/2024 4:42 PM EDT [facility] Disclaimer Unless otherwise specified, all tissue is 10% NB formalin fixed and paraffin embedded. Technical pathology services provided by [facility] [address] [facility] [address], [place] [address] (CLIA #[id number]/Amy Stringer MD, Interior Design Professional) 07/08/2024 4:42 PM EDT [facility] Tissue Urine specimen from urethra / Unknown 06/25/2024 06/27/2024 4:00 PM EST us [facility] PATHOLOGY ORDERAB LES Final Result [facility] [address] [place] [address], documented in this encounter Visit Diagnoses Diagnosis Gross hematuria documented in this encounter Care Teams Mortgage Loan Computation Clerk Relationship Specialty Start Date End Date Timoteo Escamilla MD [address] [place] [address] PCP - General 02/23/22 documented as of this encounter
--- OUTSIDE RECORDS SUMMARY | 2024-08-02 15:12 | XMS_ITS | Patient Health Record ---
Author Organization [facility] Address [address] [place] [address] Care Team Providers Care Brush Filler Hand Name Role Phone CYN FAJARDO Primary Care Provider [phone] Olga Sarabia Unavailable [phone] Allergies Allergen (clinical drug ingredient) Drug/Non Drug Allergy documented on EMR Reaction Allergy Type Onset Date Status amoxicillin / clavulanate Augmentin hives Drug Allergy Active levofloxacin Levofloxacin anaphylaxis Drug Allergy Active Motrin Unknown Drug Allergy Active Wellbutrin Unknown Drug Allergy Active Results Component Value Reference Range Notes AP OUTSIDE CONSULT Reviewed date:07/08/2024 05:03:14 PM Interpretation: Performing Lab: Notes/Report: Gross hematuria R31.0 Urine Cytology/FISH (now) Urine Cytology/FISH (now) Final Diagnosis A. Urine, Voided, ([id number]): Negative for high grade urothelial carcinoma. Results of UroVysion fluorescence in situ hybridization (FISH) testing: Although FISH was performed, insufficient non-obscured hybridization signals are present for evaluation and interpretation. Gross Description A. Urine, Voided, ([id number]): Received one ThinPrep slide for cytology and one ThinPrep slide for UroVysion FISH Disclaimer Unless otherwise specified, all tissue is 10% NB formalin fixed and paraffin embedded. Technical pathology services provided by [facility] at [address] [place] [address] [address], [place] [address] (CLIA #[id number]/Rachel Stringer MD, Research Biologist) Clinical Information Gross hematuria R31.0 Hemoglobin [id number] Reviewed date:07/21/2024 09:01:25 AM Interpretation: Performing Lab:[facility], [address] [place] [address], Phone - [phone], Director - Hiraly Notes/Report: Hemoglobin A1c 5.7 4.8-5.6 % . Prediabetes: 5.7 - 6.4 Diabetes: >6.4 Glycemic control for adults with diabetes: <7.0 Lipid Panel-[id number] Reviewed date:07/21/2024 09:01:44 AM Interpretation: Performing Lab:[facility], [address] [place] [address], Phone - [phone], Director - MDLizadry Notes/Report: Cholesterol, Total 163 100-199 mg/dL Triglycerides 81 0-149 mg/dL HDL Cholesterol 62 >39 mg/dL VLDL Cholesterol Huan 15 5-40 mg/dL LDL Chol Calc (NIH) 86 0-99 mg/dL CBC, Platelet, No Differenti al-[id number] Reviewed date:10/10/2023 11:50:09 AM Interpretation: Performing Lab:[facility], [address] [place] [address], Phone - [phone], Director - Fabio Notes/Report: WBC 9.6 3.4-10.8 x10E3/uL RBC 3.95 4.14-5.80 x10E6/uL Hemoglobin 11.3 13.0-17.7 g/dL Hematocrit 36.1 37.5-51.0 % MCV 91 79-97 fL MCH 28.6 26.6-33.0 pg MCHC 31.3 31.5-35.7 g/dL RDW 15.7 11.6-15.4 % Platelets 224 150-450 x10E3/uL Lipid Panel-[id number] Reviewed date:10/10/2023 11:50:12 AM Interpretation: Performing Lab:[facility], [address] [place] [address], Phone - [phone], Director - Fabio Notes/Report: Cholesterol, Total 179 100-199 mg/dL Triglycerides 82 0-149 mg/dL HDL Cholesterol 73 >39 mg/dL VLDL Cholesterol Huan 15 5-40 mg/dL LDL Chol Calc (NIH) 91 0-99 mg/dL Comp. Metabolic Panel (14)-3 Reviewed date:10/10/2023 11:50:15 AM Interpretation: Performing Lab:[facility] [address] [place] [address], Phone - [phone], Director - Fabio Notes/Report: Glucose 95 70-99 [...] ALT (SGPT) 8 0-44 IU/L Albumin/Creatinine Ratio,Uri ne-[id number] Reviewed date:10/10/2023 11:50:18 AM Interpretation: Performing Lab:[facility] [place], [address] [place] [address], Phone - [phone], Director - Fabio Notes/Report: Creatinine, Urine TNP Please refer to the following specimen for additional lab results. REF-[id number] Albumin, Urine TNP Test not perf ormed Request Problem TNP Please refer to the following specimen for additional lab results. TEST: [id number] Albumin/Creatinine Ratio,Urine REF-[id number] Comp. Metabolic Panel (14)-3 [id number] Reviewed date:07/21/2024 09:02:02 AM Interpretation: Performing Lab:[facility] [place], [address] [place] [address], [place], Phone - [phone], Director - Fabio Notes/Report: Glucose 106 70-99 mg/dL BUN 13 8-27 mg/dL Creatinine 0.88 0.76-1.27 mg/dL eGFR 90 >59 mL/min/1.73 BUN/Creatinine Ratio 15 10-24 Sodium 144 134-144 mmol/L Potassium 4.2 3.5-5.2 mmol/L Chloride 105 96-106 mmol/L Carbon Dioxide, Total 26 20-29 mmol/L Calcium 8.8 8.6-10.2 mg/dL Protein, Total 5.9 6.0-8.5 g/dL Albumin 3.9 3.8-4.8 g/dL Globulin, Total 2.0 1.5-4.5 g/dL Bilirubin, Total <0.2 0.0-1.2 mg/dL Alkaline Phosphatase 84 44-121 IU/L AST (SGOT) 15 0-40 IU/L ALT (SGPT) 9 0-44 IU/L Albumin/Creatinine Ratio,Uri ne-[id number] Reviewed date:07/21/2024 09:02:08 AM Interpretation: Performing Lab:[facility], [address] [place] [address], Phone - [phone], Director - MDJodry Notes/Report: Creatinine, Urine 81.3 Not Estab. mg/dL Albumin, Urine 10.6 Not Estab. ug/mL Alb/Creat Ratio 13 0-29 mg/g creat Normal: 0 - 29 Moderately increased: 30 - 300 Severely increased: >300 CULTURE URINE Reviewed date:06/26/2024 04:41:22 PM Interpretation: Performing Lab: Notes/Report: Culture, Urine No growth Albumin/Creatinine Ratio,Uri ne-[id number] Reviewed date:10/05/2023 03:44:33 PM Interpretation: Performing Lab:[facility] Schneider, [address] [facility] [facility], Phone - [phone], Director - MDJodry Notes/Report: Creatinine, Urine 115.9 Not Estab. mg/dL Albumin, Urine 9.3 Not Estab. ug/mL Alb/Creat Ratio 8 0-29 mg/g creat Normal: 0 - 29 Moderately increased: 30 - 300 Severely increased: >300 Reason For Referral No Information Medications Medication SIG (Take, Route, Frequency, Duration) Notes Start Date End Date Status Mesalamine 800 MG 1 tablet Orally twic e a day Unknown Theophylline ER 400 MG 1 tablet Orally O nce a day Active Amoxicillin 500 MG 1 capsule Orally valentin ry 8 hrs for 5 days 05/12/2023 Unknown Mucinex 600 MG 1 tablet as needed Orally every 12 hrs Active Testim 50 MG/5GM (1%) 1 packet to skin i n the morning Transdermal Once a day for 30 days 08/11/2021 Unknown Benzonatate 100 MG 1 capsule as needed Orally Three times a day for 7 days 04/28/2023 Unknown Doxycycline Active predniSONE 20 MG 1 tablet Orally Once a day for 7 days 04/28/2023 Unknown Calcium Citrate 250 MG 1 tablet Orally O nce a day Active fentaNYL 12 MCG/HR 1 patch to skin Transdermal PSSP Unknown Vitamin D2 2000 UNIT 1 tablet Orally Onc e a day Active Pepto-Bismol As needed Unknown Atorvastatin Calcium 40 MG 1 tablet Orally Once a day Active predniSONE 20 MG as directed Orally O nce a day for 30 days 01/07/2021 Unknown Trelegy Ellipta 100-62.5-25 MCG/INH 1 puff Inhalation Once a day Active Zofran 4 MG 1 tablet Orally bid as needed for 14 days 05/17/2019 Unknown Dicyclomine HCl 10 MG 1-2 capsules Orall y every 4-6 hours Unknown Megestrol Acetate 40 MG 1 tablet Orally Once a day for 30 days 02/24/2023 Unknown Centrum Silver - as directed Orally o ne daily Active oxyCODONE HCl 15 MG 1 tablet Orally ever y 6 hrs PSSP Active Warfarin Sodium 2.5 MG TAKE 1 TABLET BY MOUTH EVERY DAY for 90 Active ProAir RespiClick 108 (90 Base) MCG/ACT 1-2 puff as needed Inhalation every 4 hrs for 30 days Active Cardizem CD 240 MG 1 capsule Orally Onc e a day Active Azithromycin 250 MG 1 tablet Orally 2 tablets on the first day, then 1 tablet daily for 5 days 04/28/2023 Active Carvedilol 3.125 MG TAKE 1 TABLET BY GILBERT TH TWICE DAILY WITH FOOD for 30 Active Sertraline HCl 25 MG TAKE 2 TABLETS BY M OUTH EVERY DAY for 30 days Active dilTIAZem HCl 120 MG TAKE 1 TABLET BY MO OKH TWICE DAILY DIRECTED for 54 Active Lovenox 60 MG/0.6ML 60 mg Injection daily for 5 days take it every day in the morning subcutaneous. Do not take on the day of procedure 08/11/2023 Active Enoxaparin Sodium 60 MG/0.6ML as directed Subcutaneous twice daily for 5 days 09/05/2018 Unknown ProAir HFA 108 (90 Base) MCG/ACT 2 puffs as needed Inhalation every 6 hrs for 30 days Active Anoro Ellipta 62.5-25 MCG/INH 1 puff Inhalation Once a day Unknown Metoprolol Tartrate 25 MG 1 tablet with food Orally Twice a day for 90 Unknown Immunizations Vaccine Route Administration Date Status Comme nts Flu High-Dose IM Intramuscular 02/24/2023 Administered High Dose Fluzone +65 IM Intramuscular 03/23/2022 Administ ererupesh Influenza, high dose seasonal Unknown 05/16/2017 Administered [...] Risk Notes Problem Malignant tumor of lung (533786707) Malignant neoplasm of unspecified part of unspecified bronchus or lung (C34.90) Active confirmed Problem 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 confirmed Problem Generalized anxiety disorder (95407180) Generalized anxiety disorder (F41.1) Active confirmed Problem Atrial fibrillation (58290517) Unspecified atrial fibrillation (I48.91) Active confirmed Problem Cerebral infarction (308798044) Cerebral infarction, unspecified (I63.9) Active confirmed Problem Occlusion and stenosis of multiple and bilateral cerebral arteries (124371901) Occlusion and stenosis of bilateral carotid arteries (I65.23) Active confirmed Problem Chronic obstructive pulmonary disease (12484484) Chronic obstructive pulmonary disease, unspecified (J44.9) Active confirmed Problem Chronic respiratory failure (95256369) Chronic respiratory failure with hypoxia (J96.11) Active confirmed Problem Localized infection of skin AND/OR subcutaneous tissue (358555655) Local infection of the skin and subcutaneous tissue, unspecified (L08.9) Active confirmed Problem Cervical radiculopathy (44563127) Radiculopathy, cervical region (M54.12) Active confirmed Problem Muscle weakness (81329043) Muscle weakness (generalized) (M62.81) Active confirmed Problem Solitary pulmonary nodule (680638844) Solitary pulmonary nodule (R91.1) Active confirmed Problem History of excision of intestinal structure (729044502) Acquired absence of other specified parts of digestive tract (Z90.49) Active confirmed Problem Abdominal aortic aneurysm without rupture (28275040) Abdominal aortic aneurysm, without rupture (I71.4) Active confirmed Problem Essential hypertension (23212303) Essential (primary) hypertension (I10) Active confirmed Problem Intestinal obstruction (53973747) Unspecified intestinal obstruction, unspecified as to partial versus complete obstruction (K56.609) Active confirmed Problem History of disease caused by Severe acute respiratory syndrome coronavirus 2 (situation) (3692833093444498 05) Personal history of COVID-19 (Z86.16) Active confirmed Vital Signs Heart Rate 95 /min 07/25/2024 Temperature 97.9 degrees Fahrenheit 07/25/2024 Blood pressure diastolic 72 mm Hg 07/25/2024 Oximetry 100 % 07/25/2024 Height 65 in 07/25/2024 Blood pressure systolic 120 mm Hg 07/25/2024 Weight 95.4 lbs 07/25/2024 BMI 15.87 kg/m2 07/25/2024 Encounters Encounter Location Date Provider Diagnosis [address] [address] 06/04/2024 Olga Sarabia [address] [address] 09/06/2023 CYN FAJARDO Chronic obstructive pulmonary disease, unspecified J44.9 ; Essential (primary) hypertension I10 ; Unspecified atrial fibrillation I48.91 ; Cerebral infarction, unspecified I63.9 and Urinary calculus, unspecified N20.[address] [address] 01/08/2024 CYN FAJARDO Essential (primary) hypertension I10 ; Encounter for general adult medical examination without abnormal findings Z00.00 ; Chronic obstructive pulmonary disease, unspecified J44.9 ; Malignant neoplasm of unspecified part of unspecified bronchus or lung C34.90 ; Unspecified atrial fibrillation I48.91 and Impaired fasting glucose R73.[address] [address] 07/25/2024 Olga Sarabia Pre-operative examination Z01.818 and Impaired fasting glucose R73.01 [facility] [address] [place] [address] 08/07/2023 [facility] [address] [place] [address] 08/09/2023 [facility] [address] [place] [address] 08/10/2023 [facility] [address] [place] [address] 08/11/2023 [facility] [address] [place] [address] 08/17/2023 [facility] [address] [place] [address] 08/25/2023 [facility] [address] [place] [address] 09/25/2023 [facility] [address] [place] [address] 10/24/2023 [facility] [address] [place] [address] 12/21/2023 [facility] [address] [place] [address] 02/27/2024 [facility] [address] [place] [address] 04/01/2024 [facility] [address] [place] [address] 04/25/2024 [facility] [address] [place] [address] 05/15/2024 [facility] [address] [place] [address] 05/23/2024 [facility] [address] [place] [address] 05/23/2024 [facility] [address] [place] [address] 05/29/[address] [place] [address] 06/05/[address] [place] [address] 06/06/[address] [place] [address] 07/10/[address] [place] [address] 07/16/[address] [place] [address] 07/25/2024 Olga Sarabia Assessments Encounter Date Diagnosis (ICD Code) Assessment [...] stone. Status post lithotripsy by urologist at [facility]. His hematuria has improved Screening blood work before next appointment. General health concerns discussed with patient. Scribe services used to formulate this note under HIPAA compliance and under [place] law mandated for scribe services. Patient aware [...] stone. Status post lithotripsy by urologist at [facility]. His hematuria has improved Screening blood work before next appointment. General health concerns discussed with patient. Scribe services used to formulate this note under HIPAA compliance and under [place] law mandated for scribe services. Patient aware [...] stone. Status post lithotripsy by urologist at [facility]. His hematuria has improved Impaired fasting glucose. Dietary restrictions, regimental exercise and weight loss advised. check A1c. Eye screening. 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 Dental screening. He sees dentist regularly. Colon cancer screening. He had his colonoscopy done every 4 years. Immunizations. He is up-to-date on his TDAP and pneumonia vaccinations. Blood work reviewed with patient and questions answered. Screening blood work before next appointment. General health concerns discussed with patient. Scribe services used to formulate this note under HIPAA compliance and under [place] law mandated for scribe services. Patient aware [...] stone. Status post lithotripsy by urologist at [facility]. His hematuria has improved Impaired fasting glucose. Dietary restrictions, regimental exercise and weight loss advised. check A1c. Eye screening. 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 Dental screening. He sees dentist regularly. Colon cancer screening. He had his colonoscopy done every 4 years. Immunizations. He is up-to-date on his TDAP and pneumonia vaccinations. Blood work reviewed with patient and questions answered. Screening blood work before next appointment. General health concerns discussed with patient. Scribe services used to formulate this note under HIPAA compliance and under [place] law mandated for scribe services. Patient aware of service. Verbal consent and written consent taken from the patient. Patient understands and verbalizes understanding of the scribes services and all questions answered regarding scribes services. Patient agrees to use of scribes services. 07/25/2024 Impaired fasting glucose (ICD-10 - R73.01) Mr. Angeles is a 74-year-old gentleman with hypertension, hyperlipidemia, COPD, low testosterone, AAA, cervical radiculopathy, atrial fibrillation and status post lung cancer and resection of the right upper lobe here for pre-op cataract surgery BL, on August 05/2025 with [facility] eye care with Dr. Robledo. Plan as [...] he does follow with Coumadin clinic at [facility]. Advised patient to check with the eye [...] patient but was available upon request 07/25/2024 Pre-operative examination (ICD-10 - Z01.818) Mr. Angeles is a 74-year-old gentleman with hypertension, hyperlipidemia, COPD, low testosterone, AAA, cervical radiculopathy, atrial fibrillation and status post lung cancer and resection of the right upper lobe here for pre-op cataract surgery BL, on August 05/2025 with [facility] eye care with Dr. Robledo. Plan as [...] he does follow with Coumadin clinic at [facility]. Advised patient to check with the eye [...] the patient but was available upon request 01/08/2024 Chronic obstructive pulmonary disease, unspecified (ICD-10 [...] stone. Status post lithotripsy by urologist at [facility]. His hematuria has improved Impaired fasting glucose. Dietary restrictions, regimental exercise and weight loss advised. check A1c. Eye screening. 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 Dental screening. He sees dentist regularly. Colon cancer screening. He had his colonoscopy done every 4 years. Immunizations. He is up-to-date on his TDAP and pneumonia vaccinations. Blood work reviewed with patient and questions answered. Screening blood work before next appointment. General health concerns discussed with patient. Scribe services used to formulate this note under HIPAA compliance and under [place] law mandated for scribe services. Patient aware [...] stone. Status post lithotripsy by urologist at [facility]. His hematuria has improved Screening blood work before next appointment. General health concerns discussed with patient. Scribe services used to formulate this note under HIPAA compliance and under [place] law mandated for scribe services. Patient aware [...] stone. Status post lithotripsy by urologist at [facility]. His hematuria has improved Screening blood work before next appointment. General health concerns discussed with patient. Scribe services used to formulate this note under HIPAA compliance and under [place] law mandated for scribe services. Patient aware [...] stone. Status post lithotripsy by urologist at [facility]. His hematuria has improved Impaired fasting glucose. Dietary restrictions, regimental exercise and weight loss advised. check A1c. Eye screening. 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 Dental screening. He sees dentist regularly. Colon cancer screening. He had his colonoscopy done every 4 years. Immunizations. He is up-to-date on his TDAP and pneumonia vaccinations. Blood work reviewed with patient and questions answered. Screening blood work before next appointment. General health concerns discussed with patient. Scribe services used to formulate this note under HIPAA compliance and under [place] law mandated for scribe services. Patient aware [...] stone. Status post lithotripsy by urologist at [facility]. His hematuria has improved Impaired fasting glucose. Dietary restrictions, regimental exercise and weight loss advised. check A1c. Eye screening. 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 Dental screening. He sees dentist regularly. Colon cancer screening. He had his colonoscopy done every 4 years. Immunizations. He is up-to-date on his TDAP and pneumonia vaccinations. Blood work reviewed with patient and questions answered. Screening blood work before next appointment. General health concerns discussed with patient. Scribe services used to formulate this note under HIPAA compliance and under [place] law mandated for scribe services. Patient aware [...] stone. Status post lithotripsy by urologist at [facility]. His hematuria has improved Screening blood work before next appointment. General health concerns discussed with patient. Scribe services used to formulate this note under HIPAA compliance and under [place] law mandated for scribe services. Patient aware [...] stone. Status post lithotripsy by urologist at [facility]. His hematuria has improved Impaired fasting glucose. Dietary restrictions, regimental exercise and weight loss advised. check A1c. Eye screening. 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 Dental screening. He sees dentist regularly. Colon cancer screening. He had his colonoscopy done every 4 years. Immunizations. He is up-to-date on his TDAP and pneumonia vaccinations. Blood work reviewed with patient and questions answered. Screening blood work before next appointment. General health concerns discussed with patient. Scribe services used to formulate this note under HIPAA compliance and under [place] law mandated for scribe services. Patient aware [...] 23 LIPID PANEL 11/23/2022 MICROALBUMIN, URINE 11/23/2022 Insurance Providers Payer Name Payer Address Payer Phone Subscriber Number Group Number Insured Name Patient Relationship to Insured Coverage Start Date Coverage End Date [employer] Preferred [address] [place] [address] [id number] Dirk Pedro i Self - patient is the insured 2 Medical (General) History Medical History History ICD Code Essential (primary) hypertension I10 Hyperlipidemia, unspecified E78.5 COPD and he sees Dr. Jhaveri Low testosterone levels and he sees Dr. 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 He is currently on Coumadin monitored by Coumadin clinic at [facility]. Pulmonary nodule right lung. Positive on PET scan and planning to have resection by at [facility] Small bowel obstruction and status post resection and he sees Dr. Barr. Cervical radiculopathy and h e follows with [facility] spine and sports and is on narcotics Smokes marijuana for appetite A Fib see Dr Bazzi Personal history of COVID-19 S/P Pasturella infection Surgical History Surgery Date(Month/Year) Small bowel obstruction 06/26/16 cervical spine 09/17/13 Right upper lobectomy at [facility] 09/2018 Hospitalization History Reason Date(Month/Year) right lobectomy 10/13/18
[2024-08-02 15:16] LABS: Prothrombin Time Whole Bld POC 33.8 sec (11.1-13.5); ~PT, ~INR - Anti Coag Clinic 2.8 (0.9-1.1)
--- NOTE | 2024-08-02 15:28 | MHC.OFFVISCO ---
Intake Intake Visit Reasons: Anticoagulation Allergies bupropion [From Wellbutrin] Allergy (Intermediate, Verified 08/02/24 15:09) Nausea levofloxacin [From LEVAQUIN] Allergy (Intermediate, Verified 08/02/24 15:09) GI UPSET/ WEIGHT LOSS, anaphylaxis sulfamethoxazole [From Bactrim] Allergy (Intermediate, Verified 08/02/24 15:09) rash trimethoprim [From Bactrim] Allergy (Intermediate, Verified 08/02/24 15:09) rash ibuprofen Allergy (Mild, Verified 08/02/24 15:09) GI DISTRESS Medication List - Last Reconciled 08/02/24 by Cherrie Parker RN acetaminophen 500 mg PO Q6H PRN albuterol sulfate 90 mcg/actuation 2 puffs PO Q6H PRN albuterol sulfate 2.5 mg (3 mL) continuous nebulization QID PRN amoxicillin-pot clavulanate 875-125 mg 1 tab PO BID atorvastatin 20 mg PO DAILY calcium citrate 500 mg (2 x 250 mg calcium) PO BID 90 days carvedilol 3.125 mg PO BID cholecalciferol (vitamin D3) 100 mcg (2 x 50 mcg (2,000 unit)) PO DAILY 90 days diltiazem HCl 120 mg PO BID doxycycline hyclate 100 mg PO BID [ENSURE / BOOST PO DAILY] idqockrvrjl-foidiuvil-tisstknx 100-62.5-25 mcg (Trelegy Ellipta) 1 inh inhalation DAILY 30 days Lactobacillus rhamnosus GG (Culturelle) 1 cap PO DAILY vwirrerjnycv-tblupiag-ppswde 1 tab PO DAILY nebulizers As directed oxycodone 10 mg PO Q6H PRN oxycodone ER (OxyContin) 10 mg PO Q12H Oxygen Home Use As directed sertraline 25 mg PO BEDTIME simethicone (Gas Relief (simethicone)) 160 mg (2 x 80 mg) PO TID PRN 30 days sodium chloride 7% 4 mL inhalation BID theophylline ER 400 mg PO DAILY warfarin 2.5 mg See Protocol PO DAILY Nursing Note INR: 2.8 in therapeutic range pt to have cataract surgery of left eye 08/05/24 - no warfarin hold. Medications and supplements reviewed No changes in diet, medications, or supplements, Denies any signs and symptoms of bleeding or bruising or clotting. Bleeding, bruising, clotting discussed Nutritional guidance given - pt enc to have greens or ensure in a few days to make sure INR stays in range and also prior procedure . Dose: 3.75mg x 2 days/ 2.5mg x 5 days F/U INR: 1 month or as needed Patient verbalizes understanding of instructions given Anti-Coag Initial Assessment Social Hx Patient Tobacco Use Status: Former Tobacco user Tobacco use type: Cigarette Alcohol intake frequency: former alcohol drinker Questionnaires HAS-BLED Does the patient had uncontrolled Hypertension?: No Does the patient have renal disease?: No Does the patient have liver disease?: No Does the patient have a history of stroke?: Yes Has the patient had major bleeding or predisposition to bleeding?: Yes (hx of hematuria ) Does the patient have labile INRs?: No Is the patient over 65 years of age?: Yes Is the patient on medications that gives them a predisposition to bleeding?: Yes Does the patient use alcohol?: No HAS-BLED Score: 4 CHADSVASC Age: 75 or over Gender: Male Does the patient have a history of CHF?: No Does the patient have a history of Hypertension?: No Does the patient have a history of Stroke/TIA/Thromboembolism?: Yes Does the patient have a history of Vascular Disease (prior CA, PAD or aortic plaque)?: Yes Does the patient have a history of Diabetes?: No CHADS VACS Score: 5 Mateo Prediction Score Rsk VTE Active Cancer: No Previous VTE, excluding superficial vein thrombosis: Yes Reduced mobility: Yes Already known Thrombophilic Condition: No With-in last month Trauma and/or Surgery: No Elderly 70 year or older: Yes Heart and/or Respiratory Failure: Yes Acute Myocardial infarction and/or Ischemic Stroke: Yes Acute Infection and/or Rheumatologic Disorder: No Obesity (BMI 30 or greater): No Ongoing Hormonal Treatment: No Score: 9 Mateo Score less than 4; Low Risk of VTE Mateo Score 4 or greater; High Risk of VTE Coding Level of Care Code Est Patient Level 1 Diagnoses Current use of anticoagulant therapy Z79.01 Assessment & Plan Assessment & Plan (1) Current use of anticoagulant therapy: Code(s): Z79.01 - intermediate (current) use of 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
== END 2024-08-02 16:08 | disposition home or self-care (01) ==
LOC: HO.ACS 15:09
PROVIDERS: PCP Hospitalist; Visit Provider Internal Medicine Medical Oncology
DX: Z79.01 Long term (current) use of anticoagulants (principal)

== ENCOUNTER → 2024-08-02 15:09 | Outpatient (BNVA) | payer MEDICARE, SELFPAY | PROVIDERS: PCP Hospitalist; Visit Provider Internal Medicine Medical Oncology | DX: Z86.73 Personal history of transient ischemic attack (TIA), and cerebral infarction without residual deficits (principal); Z79.01 Long term (current) use of anticoagulants; Z51.81 Encounter for therapeutic drug level monitoring | CPT/HCPCS: 85610; 99211 ==

== ENCOUNTER 2024-08-05 09:57 | Day surgery (SDC) | payer MEDICARE, SELFPAY ==
[2024-07-29 15:51] VITALS: BMI 15.9
[2024-08-05 10:51] VITALS: BP 114/63; PULSE 63; RESP 16; TEMP 36.8; O2SAT 100
[2024-08-05] MEDS: Tetracaine HCl/PF 0.5% Oph Sol 4 ML DROPS 1 DROP EYE-LEFT (10:55)
[2024-08-05] MEDS: Cyclopentolate 1 % Ophth Sol 2 ML DRPBTL 1 DROP EYE-LEFT ×3 (10:59→11:06)
[2024-08-05] MEDS: Lactated Ringers 500 ML 50 ML IV (10:59)
[2024-08-05] MEDS: Tropicamide 1 % Ophth Sol 3 ML BTL 1 DROP EYE-LEFT ×3 (11:00→11:07)
[2024-08-05] MEDS: Ketorolac Tromethamine 0.5% Op 5 ML DROPS 1 DROP EYE-LEFT ×3 (11:01→11:08)
[2024-08-05] MEDS: Phenylephrine HCL 2.5% Oph SoL 2 ML BOTTLE 1 DROP EYE-LEFT ×3 (11:02→11:09)
--- NOTE | 2024-08-05 11:06 | HO.ANESPROP2 ---
HPI - Anesthesia Eval Consult details Narrative: 74 yo M presenting for left cataract extraction IOL insertion. Hx of CVA with slight residual left-sided weakness. PMF Active Problems Active Problems: All Active Problems Pre-op chest exam (Acute) Encounter for preoperative pulmonary examination (Acute) Chest pain (Acute) Dyspnea (Acute) CHF (congestive heart failure) (Acute) Cerebrovascular disease (Acute) Current use of anticoagulant therapy (Acute) Bronchiectasis (Acute) Pulmonary fibrosis (Acute) Pulmonary nodules (Acute) Hx of cancer of lung (Acute) COPD (chronic obstructive pulmonary disease) (Acute) Bronchiectasis (Acute) Vitamin D deficiency (Acute) Hypogonadotropic hypogonadism (Acute) Osteoporosis (Acute) Past Medical History Medical History (Updated 07/29/24 @ 16:06 by Mira Brush RN) Wears dentures Renal calculi Cataracts, bilateral Neck pain Carotid stenosis, left HTN (hypertension) Bronchiectasis Pulmonary fibrosis Pulmonary nodules Bronchiectasis History of MRSA infection Arthritis Back pain Hx of spinal stenosis Lab test negative for COVID-19 virus Arrhythmia Hx of Clostridium difficile infection Hx of cancer of lung On anticoagulant therapy Elevated cholesterol Hx of ulcerative colitis CVA (cerebral vascular accident) COPD (chronic obstructive pulmonary disease) AAA (abdominal aortic aneurysm) Vitamin D deficiency Hypogonadotropic hypogonadism Osteoporosis Family History Family History Father AAA (abdominal aortic aneurysm) Mother No problems noted. Family history of problems with anesthesia: No Surgical History Surgical History (Updated 07/29/24 @ 15:14 by Mira Brush RN) History of bronchoscopy (06/2023) Hx of cervical discectomy H/O colonoscopy History of lobectomy of lung History of bowel resection History of Problems with Anesthesia: No Social History Social History (Updated 07/29/24 @ 15:56 by Mira Brush RN) Household Members: Spouse Housing: Condominium Are you a primary skin care specialist to a significant other at home: No Do you presently have visiting nurse or other home services: No Patient Tobacco Use Status: Former Tobacco user Tobacco use type: Cigarette Years Smoked: 54 Years Substance Use Type: Marijuana Substance Use Type Other:: former MJ smoker Have you been hit, kicked, punched, or otherwise hurt by someone within the past year? If so, by whom?: No Are you DNR?: No Advance Directives: No Advance Directives Information Provided: Yes Advance Directives on File: No Meds Allergies Allergy/AdvReac Type Severity Reaction Status Date / Time bupropion [From Wellbutrin] Allergy Intermediate Nausea Verified 08/02/24 15:09 levofloxacin [From LEVAQUIN] Allergy Intermediate GI UPSET/ Verified 08/02/24 15:09 WEIGHT LOSS, anaphylaxis sulfamethoxazole Allergy Intermediate rash Verified 08/02/24 15:09 [From Bactrim] trimethoprim [From Bactrim] Allergy Intermediate rash Verified 08/02/24 15:09 ibuprofen Allergy Mild GI DISTRESS Verified 08/02/24 15:09 Active Medications: Current Medications Albuterol Sulfate (Albuterol Sulfate (0.083%) 2.5 Mg/3 Ml Vial.Neb) 2.5 mg INHALE ONCE PRN PRN Reason: Shortness of Breath/Wheezing Lactated Ringer's (Lr) 500 mls @ 50 mls/hr IV .Q10H WILLIE Stop: 08/05/24 20:44 Last Admin: 08/05/24 10:59 Dose: 50 mls/hr Naloxone HCl (Naloxone Hcl 0.4 Mg/Ml Vial) 0.04 mg IVPUSH Q5M PRN PRN Reason: Excessive sedation or RR < 8 Povidone Iodine (Povidone Iodine 5 % Ophth Soln 30 Ml Bottle) 1 appl EYE-LEFT PREOP PRN PRN Reason: Pre-Op Surgical Implant Prophy Home Medications ?Medication ?Instructions ?Recorded ?Confirmed ?Last Taken ?Type atorvastatin 20 mg tablet 20 mg PO DAILY 06/26/20 08/02/24 Unknown History albuterol sulfate 90 mcg/actuation 2 puff PO Q6H PRN Shortness Of 08/03/20 08/02/24 Unknown History aerosol inhaler Breath Or Wheezing theophylline 400 mg 400 mg PO DAILY 10/29/21 08/02/24 Unknown History tablet,extended release 24 hr acetaminophen 500 mg tablet 500 mg PO Q6H PRN Pain 02/03/22 08/02/24 08/05/24 History nebulizers 02/03/22 08/02/24 Unknown History carvedilol 3.125 mg tablet 3.125 mg PO BID 06/30/22 08/02/24 08/05/24 History sertraline 25 mg tablet 25 mg PO BEDTIME 07/28/22 08/02/24 Unknown History diltiazem HCl 120 mg tablet 120 mg PO BID 09/23/22 08/02/24 Unknown History Oxygen Home Use 10/04/22 08/02/24 Unknown History ENSURE / BOOST PO DAILY 04/27/23 08/02/24 Unknown History Lactobacillus rhamnosus GG 10 1 cap PO DAILY 07/29/24 08/02/24 08/05/24 History billion cell capsule (Culturelle) dwgefefydqno-rzrsmhaz-fijxyc tablet 1 tab PO DAILY 07/29/24 08/02/24 Unknown History oxycodone 10 mg tablet 10 mg PO Q6H PRN Pain 07/29/24 08/02/24 08/05/24 History oxycodone 10 mg tablet,crush 10 mg PO Q12H 07/29/24 08/02/24 08/05/24 History resistant,extended release 12 hr (OxyContin) Exam Exam Date and Time: 08/05/24 1058 Height,Weight and Vital Signs: Height 5 ft 5 in Weight 43.273 kg Last Vital Signs Temp 98.3 F 08/05/24 10:51 Pulse 63 08/05/24 10:51 Resp 16 08/05/24 10:51 BP 114/63 08/05/24 10:51 Pulse Ox 100 08/05/24 10:51 O2 Del Method Room Air 08/05/24 10:51 Airway Mallampati Class: I TM Dist: >3cm Neck ROM: Limited Denture: Upper and Lower Heart: S1S2 Lungs: CTAB Assessment and Plan Assessment Anesthesia Assessment: Anesthesia Plan Discussed and Chart Reviewed Final Anesthetic Review Family History of Problems with Anesthesia: No History of Problems with Anesthesia: No NPO: Yes ASA Class: III Final Preanesthetic Review: No Changes in Pt Med Stat, Meds/Allgs Chart Reviewed, Consent Obtained/Reviewed and Anes Risks/Benef Reviewed Patient Risk: Intermediate Procedure Risk: Low Anesthetic Plan Anesthetic Plan: MAC: and Agree w/ Assess. and Plan Disposition: Standard PACU
--- NOTE | 2024-08-05 11:38 | MHC.SHP ---
Pre-Procedural Eval Section A - 24 Hr Update-Section A only Date of Service: 08/05/24 The patient is an INPATIENT: No Changes since office visit: No Cold of Flu in the past 2 weeks, No New Medical Problems, No Changes in Medication and No Patient answered all questions The patient has been examined within 24 hours of the surgical procedure. The History & Physical has been completed within 30 days and I have reviewed it.: Yes Section B - Complete if H&P > 30 days Chief Complaint: Age-related nuclear cataract, left eye Allergies: Allergies Allergy/AdvReac Type Severity Reaction Status Date / Time bupropion [From Wellbutrin] Allergy Intermediate Nausea Verified 08/02/24 15:09 levofloxacin [From LEVAQUIN] Allergy Intermediate GI UPSET/ Verified 08/02/24 15:09 WEIGHT LOSS, anaphylaxis sulfamethoxazole Allergy Intermediate rash Verified 08/02/24 15:09 [From Bactrim] trimethoprim [From Bactrim] Allergy Intermediate rash Verified 08/02/24 15:09 ibuprofen Allergy Mild GI DISTRESS Verified 08/02/24 15:09 Plan Diagnosis/Plan: Unchanged I have reviewed the history and physical and performed a pertinent physical examination on my patient. No changes have occurred unless specified. Time Spent With Patient Time: Total time managing care of this patient today ____ minutes.
--- NOTE | 2024-08-05 11:38 | HO.PNOPHT ---
Ophthalmology Procedure Procedure Date of Service: 08/05/24 Ophthalmology Viscoelastic: Healon Duet Dual Pack Pro Ophthalmology Lenses: IOL Acrysof MP - MA60AC (23.5) Procedure Notes: PREOPERATIVE DIAGNOSIS: Decreased visual acuity left eye secondary to cataract POSTOPERATIVE DIAGNOSIS: Same PROCEDURE: Left cataract extraction with intraocular lens insertion SURGEON: Khurram Robledo M.D. ANESTHESIA: Topical/MAC ESTIMATED BLOOD LOSS: None COMPLICATIONS: None After obtaining informed consent, the patient was brought to the operation room suite and placed in the supine position. After adequate sedation per anesthesia, topical drops of Tetracaine were given to the left eye. The eye was then prepped and draped in the usual sterile fashion. The operating room microscope was then positioned over the operative eye and a lid speculum placed. A paracentesis was created. Viscoelastic was then instilled into the anterior chamber. A three plane incision was then created temporally, utilizing a 2.85 mm keratome. Capsulotomy forceps were then utilized to create a circular tear capsulotomy. Hydrodissection and hydrodelineation were carried out until adequate mobilization of the nucleus occurred. Phacoemulsification was then utilized to remove the dense central nucleus followed by removal of the cortical material utilizing the automated aspiration irrigation unit. Viscoat elastic was instilled into the posterior capsular bag followed by placement of a posterior chamber intraocular lens without difficulty. The residual Viscoat elastic was then removed utilizing the automated IA machine. The wound was check and found to be watertight. The patient tolerated the procedure well and the lid speculum was removed. Intracameral injection of Vigamox 0.1 mL followed by a subtenon injection of Kenalog-40 0.2 mL were administered. The patient will be seen in the a.m.
[2024-08-05 12:04] VITALS: BP 111/59; PULSE 61; RESP 16; TEMP 36.7; O2SAT 98
== END 2024-08-05 12:14 | disposition home or self-care (01) ==
PROVIDERS: PCP Hospitalist; Visit Provider Ophthalmology
PROC: (CPT 66985; principal; 2024-08-05 12:50)
DX: H25.12 Age-related nuclear cataract, left eye (principal); H52.4 Presbyopia; Z83.511 Family history of glaucoma; H40.033 Anatomical narrow angle, bilateral; I10 Essential (primary) hypertension; E78.00 Pure hypercholesterolemia, unspecified; J44.9 Chronic obstructive pulmonary disease, unspecified; I69.320 Aphasia following cerebral infarction; I69.351 Hemiplegia and hemiparesis following cerebral infarction affecting right dominant side; Z87.01 Personal history of pneumonia (recurrent); Z85.118 Personal history of other malignant neoplasm of bronchus and lung; Z90.2 Acquired absence of lung [part of]; I48.91 Unspecified atrial fibrillation; Z79.1 Long term (current) use of non-steroidal anti-inflammatories (NSAID); Z79.01 Long term (current) use of anticoagulants; Z79.51 Long term (current) use of inhaled steroids; Z79.82 Long term (current) use of aspirin; Z79.899 Other long term (current) drug therapy; Z88.1 Allergy status to other antibiotic agents; Z87.891 Personal history of nicotine dependence
CPT/HCPCS: 66984; J2250; J3301; V2630

== ENCOUNTER 2024-08-19 09:34 | Day surgery (SDC) | payer MEDICARE, SELFPAY ==
--- OUTSIDE RECORDS SUMMARY | 2024-06-20 13:47 | XMS_ITS | Clinical Summary ---
Author Organization [facility] Address [address] [place] [address] Care Team Providers Care Cell Geneticist Name Role Phone Timoteo Escamilla MD Primary Care Provider [phone] Allergies Active Allergy Reactions Criticality Noted Date [...] age to complete this topic Care Teams Cell Geneticist Relationship Specialty Start Date End Date Timoteo Escamilla MD [address] [place] [address] PCP - General Internal Medicine 02/23/22
--- OUTSIDE RECORDS SUMMARY | 2024-06-20 13:47 | XMS_ITS ---
Author Organization [facility] Address [address] [address] Care Team Providers Care Simulation Specialist Name Role Phone CYN FAJARDO Primary Care Provider REASON FOR VISIT [facility] 06/12/24 [facility] Referral Encounters Encounter Location Date Provider Diagnosis [facility] 294 [facility] [address] [place] [address] 06/06/2024 CYN FAJARDO Plan Of Treatment Next Appt Details Provider Name:Olga saldivar, 06/25/2024 03:15:00 PM, [address] [place] [address], [place], [address], Provider Name:Olga saldivar, 07/25/2024 03:30:00 PM, [address] [place] [address], [place], [address], Progress Notes * Dirk MOMINDOB: [birth year] (74 yo M)Acc No.[id number]:06/06/2024 Patient:?Dirk MOMIN :1950???Age:74 Y???Sex:Male Phone: Address:[address] [facility] [place] [address] * true * Date:? Generated for Printi raven/Fajilg/eTransmitting on:?06/20/2024 01:47 PM EST
--- OUTSIDE RECORDS SUMMARY | 2024-06-20 13:47 | XMS_ITS ---
Author Organization [facility] Address [address] [facility] [address] [place] [address] Care Team Providers Care Die Drawing Checker Name Role Phone CYN FAJARDO Primary Care Provider [phone] REASON FOR VISIT 06/19/24 [facility] Auth Encounters Encounter Location Date Provider Diagnosis [facility] 294 [facility] [address] [place] [address] 06/05/2024 CYN FAJARDO Plan Of Treatment Next Appt Details Provider Name:Anniened Agnieszka saldivar, 06/25/2024 03:15:00 PM, [address] [place] [address] [address], [place], [address], Provider Name:Olga saldivar, 07/25/2024 03:30:00 PM, [address] [place] [address], [place], [address], Progress Notes * Dirk MOMINDOB: [birth year] (74 yo M)Acc No.[id number]:06/05/2024 Patient:?Dirk MOMIN :1950???Age:74 Y???Sex:Male Phone: Address:[address] [facility] [place] [address] * true * Date:? Generated for Héctori raven/Fajilg/eTransmitting on:?06/20/2024 01:47 PM EST
--- OUTSIDE RECORDS SUMMARY | 2024-06-20 13:47 | XMS_ITS | Clinical Summary ---
Author Organization [facility] it Address [address] [place] [address] Care Team Providers Care Well Point Pumping Supervisor Name Role Phone Timoteo Escamilla MD Primary Care Provider [phone] Allergies Active Allergy Reactions Criticality Noted Date [...] 04/23/2022 Immunizations Name Administration Dates Next Due [facility] SARS-CoV-2 COVID-19, mRNA, LNP-S, preservative free 08/23/2020,08/01/2020 [...] Description 07/03/2024 3:00 PM EDT Office Visit [facility] Hematology Oncology [address] [place] [address] Casey Llanes MD [address] [place] [address] Health Maintenance Due Date Last [...] topic Insurance [employer] Care Teams Well Point Pumping Supervisor Relationship Specialty Start Date End Date Timoteo Escamilla MD [address] [place] [address] PCP - General 02/23/22
[2024-07-29 15:59] VITALS: BMI 15.9
--- NOTE | 2024-08-15 14:25 | P.CONAN_ITS ---
Documented by User: Joan Richard NP 08/15/24 14:25 HPI - Anesthesia Eval Consult details Narrative: 74yo M for Right Cataract Extraction IOL Insertion Left eye 08/05/24: [facility] 1 [facility] Active Problems Active Problems: All Active Problems Pre-op chest exam (Acute) Encounter for preoperative pulmonary examination (Acute) Chest pain (Acute) Dyspnea (Acute) CHF (congestive heart failure) (Acute) Cerebrovascular disease (Acute) Current use of anticoagulant therapy (Acute) Bronchiectasis (Acute) Pulmonary fibrosis (Acute) Pulmonary nodules (Acute) Hx of cancer of lung (Acute) COPD (chronic obstructive pulmonary disease) (Acute) Bronchiectasis (Acute) Vitamin D deficiency (Acute) Hypogonadotropic hypogonadism (Acute) Osteoporosis (Acute) Past Medical History Medical History (Updated 07/29/24 @ 16:06 by Mira Brush, BLUE) Wears dentures Renal calculi Cataracts, bilateral Neck pain Carotid stenosis, left HTN (hypertension) Bronchiectasis Pulmonary fibrosis Pulmonary nodules Bronchiectasis History of MRSA infection Arthritis Back pain Hx of spinal stenosis Lab test negative for COVID-19 virus Arrhythmia Hx of Clostridium difficile infection Hx of cancer of lung On anticoagulant therapy Elevated cholesterol Hx of ulcerative colitis CVA (cerebral vascular accident) COPD (chronic obstructive pulmonary disease) AAA (abdominal aortic aneurysm) Vitamin D deficiency Hypogonadotropic hypogonadism Osteoporosis Family History Family History Father AAA (abdominal aortic aneurysm) Mother No problems noted. Family history of problems with anesthesia: No Surgical History Surgical History (Updated 08/06/24 @ 11:47 by Mira Brush RN) Hx of left cataract extraction (08/05/24) History of bronchoscopy (06/2023) Hx of cervical discectomy H/O colonoscopy History of lobectomy of lung History of bowel resection History of Problems with Anesthesia: No Social History Social History (Updated 07/29/24 @ 15:56 by Mira Brush RN) Household Members: Spouse Housing: Condominium Are you a primary administrator health care facility to a significant other at home: No Do you presently have visiting nurse or other home services: No Patient Tobacco Use Status: Former Tobacco user Tobacco use type: Cigarette Years Smoked: 54 Years Substance Use Type: Marijuana Have you been hit, kicked, punched, or otherwise hurt by someone within the past year? If so, by whom?: No Are you DNR?: No Advance Directives: No Advance Directives Information Provided: Yes Advance Directives on File: No Meds Allergies Allergy/AdvReac Type Severity Reaction Status Date / Time bupropion [From Wellbutrin] Allergy Intermediate Nausea Verified 08/02/24 15:09 levofloxacin [From LEVAQUIN] Allergy Intermediate GI UPSET/ Verified 08/02/24 15:09 WEIGHT LOSS, anaphylaxis sulfamethoxazole Allergy Intermediate rash Verified 08/02/24 15:09 [From Bactrim] trimethoprim [From Bactrim] Allergy Intermediate rash Verified 08/02/24 15:09 ibuprofen Allergy Mild GI DISTRESS Verified 08/02/24 15:09 Home Medications ?Medication ?Instructions ?Recorded ?Confirmed ?Last Taken ?Type atorvastatin 20 mg tablet 20 mg PO DAILY 06/26/20 08/02/24 Unknown History albuterol sulfate 90 mcg/actuation 2 puff PO Q6H PRN Shortness Of 08/03/20 08/02/24 Unknown History aerosol inhaler Breath Or Wheezing theophylline 400 mg 400 mg PO DAILY 10/29/21 08/02/24 08/19/24 08:00 History tablet,extended release 24 hr acetaminophen 500 mg tablet 500 mg PO Q6H PRN Pain 02/03/22 08/02/24 08/05/24 History nebulizers 02/03/22 08/02/24 Unknown History carvedilol 3.125 mg tablet 3.125 mg PO BID 06/30/22 08/02/24 08/19/24 08:00 History sertraline 25 mg tablet 25 mg PO BEDTIME 07/28/22 08/02/24 Unknown History diltiazem HCl 120 mg tablet 120 mg PO BID 09/23/22 08/02/24 08/19/24 08:00 History Oxygen Home Use 10/04/22 08/02/24 Unknown History ENSURE / BOOST PO DAILY 04/27/23 08/02/24 Unknown History Lactobacillus rhamnosus GG 10 1 cap PO DAILY 07/29/24 08/02/24 08/05/24 History billion cell capsule (Culturelle) yeouxfamxlvs-nozfcouv-ztjnfx tablet 1 tab PO DAILY 07/29/24 08/02/24 Unknown History oxycodone 10 mg tablet 10 mg PO Q6H PRN Pain 07/29/24 08/02/24 08/19/24 08:00 History oxycodone 10 mg tablet,crush 10 mg PO Q12H 07/29/24 08/02/24 08/19/24 08:00 History resistant,extended release 12 hr (OxyContin) Exam Height,Weight and Vital Signs: Height 5 ft 5 in Weight 43.273 kg Assessment and Plan Assessment Anesthesia Assessment: Chart Reviewed Final Anesthetic Review Family History of Problems with Anesthesia: No History of Problems with Anesthesia: No Documented by User: Gale Verdin MD 08/19/24 10:53 [facility] Past Medical History Medical History (Updated 07/29/24 @ 16:06 by Mira Brush RN) Wears dentures Renal calculi Cataracts, bilateral Neck pain Carotid stenosis, left HTN (hypertension) Bronchiectasis Pulmonary fibrosis Pulmonary nodules Bronchiectasis History of MRSA infection Arthritis Back pain Hx of spinal stenosis Lab test negative for COVID-19 virus Arrhythmia Hx of Clostridium difficile infection Hx of cancer of lung On anticoagulant therapy Elevated cholesterol Hx of ulcerative colitis CVA (cerebral vascular accident) COPD (chronic obstructive pulmonary disease) AAA (abdominal aortic aneurysm) Vitamin D deficiency Hypogonadotropic hypogonadism Osteoporosis Family History Family History Father AAA (abdominal aortic aneurysm) Mother No problems noted. Surgical History Surgical History (Updated 08/06/24 @ 11:47 by Mira Brush RN) Hx of left cataract extraction (08/05/24) History of bronchoscopy (06/2023) Hx of cervical discectomy H/O colonoscopy History of lobectomy of lung History of bowel resection Social History Social History (Updated 07/29/24 @ 15:56 by Mira Brush, RN) Household Members: Spouse Housing: Condominium Are you a primary administrator health care facility to a significant other at home: No Do you presently have visiting nurse or other home services: No Patient Tobacco Use Status: Former Tobacco user Tobacco use type: Cigarette Years Smoked: 54 Years Substance Use Type: Marijuana Have you been hit, kicked, punched, or otherwise hurt by someone within the past year? If so, by whom?: No Are you DNR?: No Advance Directives: No Advance Directives Information Provided: Yes Advance Directives on File: No Meds Allergies Allergy/AdvReac Type Severity Reaction Status Date / Time bupropion [From Wellbutrin] Allergy Intermediate Nausea Verified 08/02/24 15:09 levofloxacin [From LEVAQUIN] Allergy Intermediate GI UPSET/ Verified 08/02/24 15:09 WEIGHT LOSS, anaphylaxis sulfamethoxazole Allergy Intermediate rash Verified 08/02/24 15:09 [From Bactrim] trimethoprim [From Bactrim] Allergy Intermediate rash Verified 08/02/24 15:09 ibuprofen Allergy Mild GI DISTRESS Verified 08/02/24 15:09 Home Medications ?Medication ?Instructions ?Recorded ?Confirmed ?Last Taken ?Type atorvastatin 20 mg tablet 20 mg PO DAILY 06/26/20 08/02/24 Unknown History albuterol sulfate 90 mcg/actuation 2 puff PO Q6H PRN Shortness Of 08/03/20 08/02/24 Unknown History aerosol inhaler Breath Or Wheezing theophylline 400 mg 400 mg PO DAILY 10/29/21 08/02/24 08/19/24 08:00 History tablet,extended release 24 hr acetaminophen 500 mg tablet 500 mg PO Q6H PRN Pain 02/03/22 08/02/24 08/05/24 History nebulizers 02/03/22 08/02/24 Unknown History carvedilol 3.125 mg tablet 3.125 mg PO BID 06/30/22 08/02/24 08/19/24 08:00 History sertraline 25 mg tablet 25 mg PO BEDTIME 07/28/22 08/02/24 Unknown History diltiazem HCl 120 mg tablet 120 mg PO BID 09/23/22 08/02/24 08/19/24 08:00 History Oxygen Home Use 10/04/22 08/02/24 Unknown History ENSURE / BOOST PO DAILY 04/27/23 08/02/24 Unknown History Lactobacillus rhamnosus GG 10 1 cap PO DAILY 07/29/24 08/02/24 08/05/24 History billion cell capsule (Culturelle) dzibaaksegbu-rumjgaku-sorkga tablet 1 tab PO DAILY 07/29/24 08/02/24 Unknown History oxycodone 10 mg tablet 10 mg PO Q6H PRN Pain 07/29/24 08/02/24 08/19/24 08:00 History oxycodone 10 mg tablet,crush 10 mg PO Q12H 07/29/24 08/02/24 08/19/24 08:00 History resistant,extended release 12 hr (OxyContin) Exam Airway Mallampati Class: II TM Dist: >3cm Neck ROM: Full Heart: rrr Lungs: wheezes bilaterally Assessment and Plan Assessment Anesthesia Assessment: Anesthesia Plan Discussed Final Anesthetic Review NPO: Yes ASA Class: III Final Preanesthetic Review: No Changes in Pt Med Stat, Meds/Allgs Chart Reviewed and Consent Obtained/Reviewed Patient Risk: Low Procedure Risk: Low Anesthetic Plan Anesthetic Plan: MAC: Disposition: Standard PACU
[2024-08-19 10:42] VITALS: BP 111/65; PULSE 71; RESP 16; TEMP 37.1; O2SAT 98
[2024-08-19] MEDS: Tetracaine HCl/PF 0.5% Oph Sol 4 ML DROPS 1 DROP EYE-RIGHT (10:43)
[2024-08-19] MEDS: Lactated Ringers 500 ML 50 ML IV (10:43)
[2024-08-19] MEDS: Cyclopentolate 1 % Ophth Sol 2 ML DRPBTL 1 DROP EYE-RIGHT ×3 (10:44→10:53)
[2024-08-19] MEDS: Ketorolac Tromethamine 0.5% Op 5 ML DROPS 1 DROP EYE-RIGHT ×3 (10:46→10:55)
[2024-08-19] MEDS: Tropicamide 1 % Ophth Sol 3 ML BTL 1 DROP EYE-RIGHT ×3 (10:46→10:54)
[2024-08-19] MEDS: Phenylephrine HCL 2.5% Oph SoL 2 ML BOTTLE 1 DROP EYE-RIGHT ×3 (10:47→10:56)
--- NOTE | 2024-08-19 11:38 | P.PCNO_ITS ---
Ophthalmology Procedure Procedure Date of Service: 08/19/24 Ophthalmology Viscoelastic: Healon Duet Dual Pack Pro Ophthalmology Lenses: IOL Acrysof MP - MA60AC (24) Procedure Notes: PREOPERATIVE DIAGNOSIS: Decreased visual acuity right eye secondary to cataract POSTOPERATIVE DIAGNOSIS: Same PROCEDURE: Right cataract extraction with intraocular lens insertion SURGEON: Khurram Robledo M.D. ANESTHESIA: Topical/MAC ESTIMATED BLOOD LOSS: None COMPLICATIONS: None After obtaining informed consent, the patient was brought to the operating room suite and placed in the supine position. After adequate sedation per anesthesia, topical drops of Tetracaine were given to the right eye. The eye was then prepped and draped in the usual sterile fashion. The operating room microscope was then positioned over the operative eye and a lid speculum placed. A paracentesis was created. Viscoelastic was then instilled into the anterior chamber. A three plane incision was then created temporally, utilizing a 2.85 mm keratome. Capsulotomy forceps were then utilized to create a circular tear capsulotomy. Hydrodissection and hydrodelineation were carried out until adequate mobilization of the nucleus occurred. Phacoemulsification was then utilized to remove the dense central nucl eus followed by removal of the cortical material utilizing the automated aspiration irrigation unit. Viscoelastic was instilled into the posterior capsular bag followed by placement of a posterior chamber intraocular lens without difficulty. The residual Viscoelastic was then removed utilizing the automated IA machine. The wound was checked and found to be watertight. The patient tolerated the procedure well and the lid speculum was removed. Intracameral injection of Vigamox 0.1 mL followed by a subtenon injection of Kenalog-40 0.2 mL were administered. The patient will be seen in the a.m.
--- NOTE | 2024-08-19 11:38 | MHC.SHP ---
Pre-Procedural Eval Section A - 24 Hr Update-Section A only Date of Service: 08/19/24 The patient is an INPATIENT: No Changes since office visit: No Cold of Flu in the past 2 weeks, No New Medical Problems, No Changes in Medication and No Patient answered all questions The patient has been examined within 24 hours of the surgical procedure. The History & Physical has been completed within 30 days and I have reviewed it.: Yes Section B - Complete if H&P > 30 days Chief Complaint: Age-related nuclear cataract, right eye Allergies: Allergies Allergy/AdvReac Type Severity Reaction Status Date / Time bupropion [From Wellbutrin] Allergy Intermediate Nausea Verified 08/02/24 15:09 levofloxacin [From LEVAQUIN] Allergy Intermediate GI UPSET/ Verified 08/02/24 15:09 WEIGHT LOSS, anaphylaxis sulfamethoxazole Allergy Intermediate rash Verified 08/02/24 15:09 [From Bactrim] trimethoprim [From Bactrim] Allergy Intermediate rash Verified 08/02/24 15:09 ibuprofen Allergy Mild GI DISTRESS Verified 08/02/24 15:09 Plan Diagnosis/Plan: Unchanged I have reviewed the history and physical and performed a pertinent physical examination on my patient. No changes have occurred unless specified. Time Spent With Patient Time: Total time managing care of this patient today ____ minutes.
[2024-08-19 12:08] VITALS: BP 109/61; PULSE 67; RESP 16; TEMP 37.1; O2SAT 100
== END 2024-08-19 12:12 | disposition home or self-care (01) ==
PROVIDERS: PCP Hospitalist; Visit Provider Ophthalmology
PROC: (CPT 66985; principal; 2024-08-19 12:00)
DX: H25.11 Age-related nuclear cataract, right eye (principal); Z83.511 Family history of glaucoma; H52.4 Presbyopia; H54.8 Legal blindness, as defined in USA; H40.033 Anatomical narrow angle, bilateral; H34.12 Central retinal artery occlusion, left eye; H18.413 Arcus senilis, bilateral; I10 Essential (primary) hypertension; I71.40 Abdominal aortic aneurysm, without rupture, unspecified; I65.22 Occlusion and stenosis of left carotid artery; J44.9 Chronic obstructive pulmonary disease, unspecified; E78.00 Pure hypercholesterolemia, unspecified; Z90.49 Acquired absence of other specified parts of digestive tract; Z87.01 Personal history of pneumonia (recurrent); Z85.118 Personal history of other malignant neoplasm of bronchus and lung; Z90.2 Acquired absence of lung [part of]; Z79.51 Long term (current) use of inhaled steroids; Z79.01 Long term (current) use of anticoagulants; Z79.899 Other long term (current) drug therapy; Z88.1 Allergy status to other antibiotic agents; Z88.6 Allergy status to analgesic agent; Z87.891 Personal history of nicotine dependence
CPT/HCPCS: 66984; J2250; J3301; V2630

== ENCOUNTER 2024-08-30 14:58 | Outpatient (AMB) | payer MEDICARE, SELFPAY ==
--- OUTSIDE RECORDS SUMMARY | 2024-08-30 15:00 | XMS_ITS | Clinical Summary ---
Author Organization [facility] Address [address] [place] [address] Care Team Providers Care Shirt Finisher Name Role Phone Timoteo Escamilla MD Primary Care Provider [phone] Allergies Active Allergy Reactions Criticality Noted Date [...] age to complete this topic Care Teams Shirt Finisher Relationship Specialty Start Date End Date Timoteo Escamilla MD [address] [place] [address] PCP - General Internal Medicine 02/23/22
--- OUTSIDE RECORDS SUMMARY | 2024-08-30 15:01 | XMS_ITS | Clinical Summary ---
Author Organization [facility] Address [address] [place] [address] Phone Care Team Providers Care Cane Splicer Name Role Phone Timoteo Escamilla MD Primary Care Provider [phone] Allergies Active Allergy Reactions Criticality Noted Date [...] Squamous cell carcinoma of r ight lung ([facility] V24, [facility] V28) 04/23/2022 Encounters Date Type Department Care Team Description 07/03/2024 3:00 PM EDT Office Visit [facility] Hematology Oncology [address] [place] [phone] Casey Llanes MD Squamous cell carcinoma of right lung ([facility] V24, [facility] V28) (Primary Dx); Pancreatic cyst 07/02/[address] [facility] Hematology Oncology [address] [place] [phone] Casey Llanes MD Recent MRI 06/27/2024 Lab Requisition [facility] [address] [place] [address] Khurram Zambrano PA Gross hematuria 06/25/2024 Lab Requisition [facility] [address] [place] [address] Khurram Zambrano PA Urinary tract infection, site not specified; Gross hematuria from Last 3 Months Immunizations Name Administration Dates Next Due [facility] SARS-CoV-2 COVID-19, mRNA, LNP-S, preservative free [...] Description 01/01/2025 3:00 PM EDT Office Visit [facility] Hematology Oncology [address] [place] [address] Casey Llanes MD [address] [place] [address] Health Maintenance Due Date Last [...] Urine No growth 06/26/2024 2:25 PM EST [facility] Urine Urine specimen obtained by clean catch procedure / Unknown 06/25/2024 1:15 PM EST 06/25/2024 6:08 PM EST us [facility] MICROBIOLOGY - GE NERAL ORDERABLES Final Result [facility] [address] [place] [address], [place] [phone] * Anatomic pathology outside consult (06/25/2024 12:00 AM EST) Final Diagnosis A. Urine, Voided, ([id number]): Negative for high grade urothelial carcinoma. Results of UroVysion fluorescence in situ hybridization (FISH) testing: Although FISH was performed, insufficient non-obscured hybridization signals are present for evaluation and interpretation. 07/08/2024 4:42 PM EDT [facility] Clinical Information Gross hematuria R31.0 Urine Cytology/FISH (now) 07/08/2024 4:42 PM EDT [facility] Gross Description A. Urine, Voided, ([id number]): Received one ThinPrep slide for cytology and one ThinPrep slide for UroVysion FISH 07/08/2024 4:42 PM EDT [facility] Disclaimer Unless otherwise specified, all tissue is 10% NB formalin fixed and paraffin embedded. Technical pathology services provided [facility] [address] [facility] [address], [place] [address] (CLIA #[id number]/Amy Stringer MD, Hard Hat Diver) 07/08/2024 4:42 PM EDT [facility] Tissue Urine specimen from urethra / Unknown 06/25/2024 06/27/2024 4:00 PM EST [facility] PATHOLOGY ORDERAB LES Final Result [facility] [address] [place] [address], from Last 3 Months Insurance [employer] Care Teams Cane Splicer Relationship Specialty Start Date End Date Timoteo Escamilla MD [address] [place] [address] PCP - General 02/23/22
--- OUTSIDE RECORDS SUMMARY | 2024-08-30 15:01 | XMS_ITS ---
Author Organization [facility] Address [address] [place] [address] Care Team Providers Care High School Mathematics Teacher Name Role Phone CYN FAJARDO Primary Care Provider REASON FOR VISIT [facility] Referral Encounters Encounter Location Date Provider Diagnosis [facility] [address] [place] [address] 07/16/2024 CYN FAJARDO Plan Of Treatment No Information Progress Notes * Dirk MOMINDOB: [birth year] (74 yo M)Acc No.[id number]:07/16/2024 Patient:?Dirk MOMIN :1950???Age:74 Y???Sex:Male Phone: Address:[address] [place] [address] * true * Date:? Generated for Héctori raven/Lalo/eTransmitting on:?08/30/2024 03:00 PM EDT
--- OUTSIDE RECORDS SUMMARY | 2024-08-30 15:01 | XMS_ITS | Patient Health Record ---
Author Organization [facility] Address [address] [place] [address] Care Team Providers Care Svp Chief Marketing Officer Name Role Phone SCOTTY CYN Primary Care Provider Sarwat Lopez [phone] Allergies Allergen (clinical drug ingredient) Drug/Non Drug [...] 5 MG Oral for 90 Active Creon 05123 UNIT take 1 15-30 minutes before each [...] Problem Screening for malignant neoplasm of colon (550096828) Encounter for screening for malignant neoplasm of colon (Z12.11) Active confirmed Problem Diarrhea (42408726) Diarrhea (R19.7) Active confirmed Problem 911955727 Weight loss (R63.4) Active confirmed Problem Irritable bowel syndrome with diarrhea (892713566) Irritable bowel syndrome with diarrhea (K58.0) Active confirmed Problem 031003546 Flatulence (R14.3) Active confirmed Problem 69521471 Constipation, unspecified constipation type (K59.00) Active confirmed Problem 95375960 Abdominal cramps (R10.9) Active confirmed Problem 29446645 Other ulcerative colitis without complication (K51.80) Active confirmed Problem 323780717 Anemia, unspecified type (D64.9) Active confirmed Problem Ulcerative colitis (33288003) Ulcerative colitis (K51.90) Active confirmed Problem 76078509 Diarrhea, unspecified type (R19.7) Active confirmed Problem 093960627 Chronic pancreatitis, unspecified pancreatitis type (K86.1) Active confirmed Problem Clostridium difficile diarrhea (0380374939008) Clostridium difficile diarrhea (A04.72) Active confirmed Problem Clostridioides difficile infection (276431881) Clostridioides difficile infection (A49.8) Active confirmed Plan [...] PREFERRED [address] [place] [address] [phone] [id number] LEIGHTON MELGAR Self - patient is the insured Medical (General) History Medical History History ICD Code Most recent colonoscopy was 03/10/2010--no active colitis, no dysplasia on biopsies, no polyps Stroke-causing some partial loss of visi on in the left eye 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 Ramos Hyperlipidemia Ulcerative colitis dating back to the [place],DM,renal disease Chronic back pain--spinal stenosis AAA--approx 3 cm-followed with periodic U/S RUL Lung cancer with surgery as below C.diff infection 04/2020 Colonoscopy 07/2020--normal e xcept for 1 small tubular adenoma--no colitis, no dysplasia Neg. ETT in 05/2021 Surgical History Surgery Date(Month/Year) Perirectal abscess surgery Neck surgery for 3 discs--Dr. 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 Hampton at [facility] 06/2016 RUL lobectomy for cancer-Dr. Newman-no chemo/XRT- told that he is cancer-free 04/2018
--- OUTSIDE RECORDS SUMMARY | 2024-08-30 15:01 | XMS_ITS | Patient Health Record ---
Author Organization [facility] Address [address] [place] [address] Care Team Providers Care Diplomatic Interpreter Name Role Phone CYN FAJARDO Primary Care Provider [phone] Olga Sarabia Unavailable [phone] Allergies Allergen (clinical drug ingredient) Drug/Non Drug Allergy documented on EMR Reaction Allergy Type Onset Date Status amoxicillin / clavulanate Augmentin hives Drug Allergy Active levofloxacin Levofloxacin anaphylaxis Drug Allergy Active Motrin Unknown Drug Allergy Active Wellbutrin Unknown Drug Allergy Active Results Component Value Reference Range Notes CBC, Platelet, No Differenti [id number] Reviewed date:10/10/2023 11:50:09 AM Interpretation: Performing Lab:[facility], [address] [facility], Phone - [phone], Director - MDJodry Notes/Report: WBC 9.6 3.4-10.8 x10E3/uL RBC 3.95 4.14-5.80 x10E6/uL Hemoglobin 11.3 13.0-17.7 g/dL Hematocrit 36.1 37.5-51.0 % MCV 91 79-97 fL MCH 28.6 26.6-33.0 pg MCHC 31.3 31.5-35.7 g/dL RDW 15.7 11.6-15.4 % Platelets 224 150-450 x10E3/uL Lipid Panel-[id number] Reviewed date:10/10/2023 11:50:12 AM Interpretation: Performing Lab:[facility], [address] [facility], [place], Phone - [phone], Director - MDJodry Notes/Report: Cholesterol, Total 179 100-199 mg/dL Triglycerides 82 0-149 mg/dL HDL Cholesterol 73 >39 mg/dL VLDL Cholesterol Huan 15 5-40 mg/dL LDL Chol Calc (NIH) 91 0-99 mg/dL Comp. Metabolic Panel (14)-3 Reviewed date:10/10/2023 11:50:15 AM Interpretation: Performing Lab:[facility], [address] [facility], Phone - [phone], Director - [facility] Notes/Report: Glucose 95 70-99 mg/dL BUN 11 [...] ALT (SGPT) 8 0-44 IU/L Albumin/Creatinine Ratio,Uri ne-[id number] Reviewed date:10/10/2023 11:50:18 AM Interpretation: Performing [facility], [address] [facility], Phone - [phone], Director - [facility] Notes/Report: Creatinine, Urine TNP Please refer to the following specimen for additional lab results. REF-[id number] Albumin, Urine TNP Test not perf ormed Request Problem TNP Please refer to the following specimen for additional lab results. TEST: [id number] Albumin/Creatinine Ratio,Urine [id number] AP OUTSIDE CONSULT Reviewed date:07/08/2024 05:03:14 PM Interpretation: Performing Lab: Notes/Report: Gross hematuria R31.0 Urine Cytology/FISH (now) Urine Cytology/FISH (now) Final Diagnosis A. Urine, Voided, ([id number]): Negative for high grade urothelial carcinoma. Results of UroVysion fluorescence in situ hybridization (FISH) testing: Although FISH was performed, insufficient non-obscured hybridization signals are present for evaluation and interpretation. Gross Description Yoni Urine, Voided, ([id number]): Received one ThinPrep slide for cytology and one ThinPrep slide for UroVysion FISH Disclaimer Unless otherwise specified, all tissue is 10% NB formalin fixed and paraffin embedded. Technical pathology services provided by [facility] at [address] [place] [address] [address], [place] [address] (CLIA #[id number]/Rachel Stringer MD, Skin Installer) Clinical Information Gross hematuria R31.0 Hemoglobin [id number] Reviewed date:07/21/2024 09:01:25 AM Interpretation: Performing Lab:[facility], [address] [facility], Phone - [phone], Director - Fabio Notes/Report: Hemoglobin A1c 5.7 4.8-5.6 % . Prediabetes: 5.7 - 6.4 Diabetes: >6.4 Glycemic control for adults with diabetes: <7.0 Lipid Panel-[id number] Reviewed date:07/21/2024 09:01:44 AM Interpretation: Performing Lab:[facility], [address] [facility] [address] [facility], Phone - [phone], Director - Fabio Notes/Report: Cholesterol, Total 163 100-199 mg/dL Triglycerides 81 0-149 mg/dL HDL Cholesterol 62 >39 mg/dL VLDL Cholesterol Huan 15 5-40 mg/dL LDL Chol Calc (NIH) 86 0-99 mg/dL Comp. Metabolic Panel (14)-3 Reviewed date:07/21/2024 09:02:02 AM Interpretation: Performing Lab:[facility], [address] [facility] [address] [facility], Phone - [phone], Director - Fabio Notes/Report: Glucose 106 70-99 [...] ALT (SGPT) 9 0-44 IU/L Albumin/Creatinine Ratio,Uri ne-[id number] Reviewed date:07/21/2024 09:02:08 AM Interpretation: Performing Lab:[facility], [address] [place] [address], Phone - [phone], Director - MDJodry Notes/Report: Creatinine, Urine 81.3 Not Estab. mg/dL Albumin, Urine 10.6 Not Estab. ug/mL Alb/Creat Ratio 13 0-29 mg/g creat Normal: 0 - 29 Moderately increased: 30 - 300 Severely increased: >300 CULTURE URINE Reviewed date:06/26/2024 04:41:22 PM Interpretation: Performing Lab: Notes/Report: Culture, Urine No growth Albumin/Creatinine Ratio,Uri ne-[id number] Reviewed date:10/05/2023 03:44:33 PM Interpretation: Performing Lab:[facility], [address] [facility] [address] [facility], Phone - [phone], Director - MDJodry Notes/Report: Creatinine, Urine 115.9 [...] 120 MG TAKE 1 TABLET BY MO DEH TWICE DAILY DIRECTED for 54 Active Lovenox [...] Risk Notes Problem Malignant tumor of lung (657009284) Malignant neoplasm of unspecified part of unspecified bronchus or lung (C34.90) Active confirmed Problem 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 confirmed Problem Generalized anxiety disorder (28726803) Generalized anxiety disorder (F41.1) Active confirmed Problem Atrial fibrillation (01218108) Unspecified atrial fibrillation (I48.91) Active confirmed Problem Cerebral infarction (218930469) Cerebral infarction, unspecified (I63.9) Active confirmed Problem Occlusion and stenosis of multiple and bilateral cerebral arteries (944136345) Occlusion and stenosis of bilateral carotid arteries (I65.23) Active confirmed Problem Chronic obstructive pulmonary disease (02846821) Chronic obstructive pulmonary disease, unspecified (J44.9) Active confirmed Problem Chronic respiratory failure (53670952) Chronic respiratory failure with hypoxia (J96.11) Active confirmed Problem Localized infection of skin AND/OR subcutaneous tissue (078056634) Local infection of the skin and subcutaneous tissue, unspecified (L08.9) Active confirmed Problem Cervical radiculopathy (20179742) Radiculopathy, cervical region (M54.12) Active confirmed Problem Muscle weakness (50417106) Muscle weakness (generalized) (M62.81) Active confirmed Problem Solitary pulmonary nodule (491833880) Solitary pulmonary nodule (R91.1) Active confirmed Problem History of excision of intestinal structure (293472724) Acquired absence of other specified parts of digestive tract (Z90.49) Active confirmed Problem Abdominal aortic aneurysm without rupture (71732159) Abdominal aortic aneurysm, without rupture (I71.4) Active confirmed Problem Essential hypertension (48037622) Essential (primary) hypertension (I10) Active confirmed Problem Intestinal obstruction (01034299) Unspecified intestinal obstruction, unspecified as to partial versus complete obstruction (K56.609) Active confirmed Problem History of disease caused by Severe acute respiratory syndrome coronavirus 2 (situation) (6502068596019950 05) Personal history of COVID-19 (Z86.16) Active confirmed Vital Signs Heart Rate 95 /min 07/25/2024 Temperature 97.9 degrees Fahrenheit 07/25/2024 Blood pressure diastolic 72 mm Hg 07/25/2024 Oximetry 100 % 07/25/2024 Height 65 in 07/25/2024 Blood pressure systolic 120 mm Hg 07/25/2024 Weight 95.4 lbs 07/25/2024 BMI 15.87 kg/m2 07/25/2024 Encounters Encounter Location Date Provider Diagnosis [address] [address] 06/04/2024 Olga Sarabia [address] [address] 09/06/2023 CYN FAJARDO Chronic obstructive pulmonary disease, unspecified J44.9 ; Essential (primary) hypertension I10 ; Unspecified atrial fibrillation I48.91 ; Cerebral infarction, unspecified I63.9 and Urinary calculus, unspecified N20.[address] [address] 01/08/2024 CYN FAJARDO Essential (primary) hypertension I10 ; Encounter for general adult medical examination without abnormal findings Z00.00 ; Chronic obstructive pulmonary disease, unspecified J44.9 ; Malignant neoplasm of unspecified part of unspecified bronchus or lung C34.90 ; Unspecified atrial fibrillation I48.91 and Impaired fasting glucose R73.[address] [address] 07/25/2024 Olga Sarabia Pre-operative examination Z01.818 and Impaired fasting glucose R73.01 [facility] [address] [place] [address] 09/25/2023 [facility] [address] [place] [address] 10/24/2023 [facility] [address] [place] [address] 12/21/2023 [facility] [address] [place] [address] 02/27/2024 [facility] [address] [place] [address] 04/01/2024 [facility] [address] [place] [address] 04/25/2024 [facility] [address] [place] [address] 05/15/2024 [facility] [address] [place] [address] 05/23/2024 [facility] [address] [place] [address] 05/23/2024 [facility] [address] [place] [address] 05/29/2024 [facility] [address] [place] [address] 06/05/2024 [facility] [address] [place] [address] 06/06/2024 [facility] [address] [place] [address] 07/10/2024 [facility] [address] [place] [address] 07/16/2024 [facility] [address] [place] [address] 07/25/2024 Olga Sarabia Assessments Encounter Date Diagnosis [...] stone. Status post lithotripsy by urologist at [facility]. His hematuria has improved Screening blood work before next appointment. General health concerns discussed with patient. Scribe services used to formulate this note under HIPAA compliance and under [place] law mandated for scribe services. Patient aware [...] stone. Status post lithotripsy by urologist at [facility]. His hematuria has improved Screening blood work before next appointment. General health concerns discussed with patient. Scribe services used to formulate this note under HIPAA compliance and under [place] law mandated for scribe services. Patient aware [...] stone. Status post lithotripsy by urologist at [facility]. His hematuria has improved Impaired fasting glucose. Dietary restrictions, regimental exercise and weight loss advised. check A1c. Eye screening. He sees his compensation coordinator regularly. Dental screening. He sees dentist regularly. Colon cancer screening. He had his colonoscopy done every 4 years. Immunizations. He is up-to-date on his TDAP and pneumonia vaccinations. Blood work reviewed with patient and questions answered. Screening blood work before next appointment. General health concerns discussed with patient. Scribe services used to formulate this note under HIPAA compliance and under [place] law mandated for scribe services. Patient aware [...] stone. Status post lithotripsy by urologist at [facility]. His hematuria has improved Impaired fasting glucose. Dietary restrictions, regimental exercise and weight loss advised. check A1c. Eye screening. He sees his compensation coordinator regularly. Dental screening. He sees dentist regularly. Colon cancer screening. He had his colonoscopy done every 4 years. Immunizations. He is up-to-date on his TDAP and pneumonia vaccinations. Blood work reviewed with patient and questions answered. Screening blood work before next appointment. General health concerns discussed with patient. Scribe services used to formulate this note under HIPAA compliance and under [place] law mandated for scribe services. Patient aware [...] cataract surgery BL, on August 05/2025 with [facility] with Dr. Robledo. Plan as follows: pre-op [...] he does follow with Coumadin clinic at [facility]. Advised patient to check with the eye [...] cataract surgery BL, on August 05/2025 with [facility] with Dr. Robledo. Plan as follows: pre-op [...] he does follow with Coumadin clinic at [facility]. Advised patient to check with the eye [...] stone. Status post lithotripsy by urologist at [facility]. His hematuria has improved Impaired fasting glucose. Dietary restrictions, regimental exercise and weight loss advised. check A1c. Eye screening. He sees his compensation coordinator regularly. Dental screening. He sees dentist regularly. Colon cancer screening. He had his colonoscopy done every 4 years. Immunizations. He is up-to-date on his TDAP and pneumonia vaccinations. Blood work reviewed with patient and questions answered. Screening blood work before next appointment. General health concerns discussed with patient. Scribe services used to formulate this note under HIPAA compliance and under [place] law mandated for scribe services. Patient aware [...] stone. Status post lithotripsy by urologist at [facility]. His hematuria has improved Screening blood work before next appointment. General health concerns discussed with patient. Scribe services used to formulate this note under HIPAA compliance and under [place] law mandated for scribe services. Patient aware [...] stone. Status post lithotripsy by urologist at [facility]. His hematuria has improved Screening blood work before next appointment. General health concerns discussed with patient. Scribe services used to formulate this note under HIPAA compliance and under [place] law mandated for scribe services. Patient aware [...] stone. Status post lithotripsy by urologist at [facility]. His hematuria has improved Impaired fasting glucose. Dietary restrictions, regimental exercise and weight loss advised. check A1c. Eye screening. He sees his compensation coordinator regularly. Dental screening. He sees dentist regularly. Colon cancer screening. He had his colonoscopy done every 4 years. Immunizations. He is up-to-date on his TDAP and pneumonia vaccinations. Blood work reviewed with patient and questions answered. Screening blood work before next appointment. General health concerns discussed with patient. Scribe services used to formulate this note under HIPAA compliance and under [place] law mandated for scribe services. Patient aware [...] stone. Status post lithotripsy by urologist at [facility]. His hematuria has improved Impaired fasting glucose. Dietary restrictions, regimental exercise and weight loss advised. check A1c. Eye screening. He sees his compensation coordinator regularly. Dental screening. He sees dentist regularly. Colon cancer screening. He had his colonoscopy done every 4 years. Immunizations. He is up-to-date on his TDAP and pneumonia vaccinations. Blood work reviewed with patient and questions answered. Screening blood work before next appointment. General health concerns discussed with patient. Scribe services used to formulate this note under HIPAA compliance and under [place] law mandated for scribe services. Patient aware [...] stone. Status post lithotripsy by urologist at [facility]. His hematuria has improved Screening blood work before next appointment. General health concerns discussed with patient. Scribe services used to formulate this note under HIPAA compliance and under [place] law mandated for scribe services. Patient aware [...] stone. Status post lithotripsy by urologist at [facility]. His hematuria has improved Impaired fasting glucose. Dietary restrictions, regimental exercise and weight loss advised. check A1c. Eye screening. He sees his compensation coordinator regularly. Dental screening. He sees dentist regularly. Colon cancer screening. He had his colonoscopy done every 4 years. Immunizations. He is up-to-date on his TDAP and pneumonia vaccinations. Blood work reviewed with patient and questions answered. Screening blood work before next appointment. General health concerns discussed with patient. Scribe services used to formulate this note under HIPAA compliance and under [place] law mandated for scribe services. Patient aware [...] Date [employer] [address] [place] [address] [phone] [id number] Dirk Pedro i Self - patient is the insured 2 Medical (General) History Medical History History ICD Code Essential (primary) hypertension I10 Hyperlipidemia, unspecified E78.5 COPD and he sees Dr. Jhaveri Low testosterone levels and he sees Dr. 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 He is currently on Coumadin monitored by Coumad[facility] clinic at [facility]. Pulmonary nodule right lung. Positive on PET scan and planning to have resection by at [facility] Small bowel obstruction and status post resection and he sees Dr. Barr. Cervical radiculopathy and h e follows with [facility] spine and sports and is on narcotics Smokes marijuana for appetite A Fib see Dr Bazzi Personal history of COVID-19 S/P Pasturella infection Surgical History Surgery Date(Month/Year) Small bowel obstruction 06/26/16 cervical spine 09/17/13 Right upper lobectomy at [facility] 09/2018 Hospitalization History Reason Date(Month/Year) right lobectomy 10/13/18
--- OUTSIDE RECORDS SUMMARY | 2024-08-30 15:01 | XMS_ITS ---
Author Organization [facility] Address [address] [place] [address] Care Team Providers Care Electrical Designer Name Role Phone LEIRekha ADDISON Primary Care Provider Olga Sarabia Unavailable [phone] REASON FOR VISIT Preop Encounters Encounter Location Date Provider Diagnosis [facility] [address] [place] [address] 07/25/2024 Olga Sarabia Plan Of Treatment No Information Progress Notes * Dirk MOMINDOB: [birth year] (74 yo M)Acc No.[id number]:07/25/2024 Patient:?LILIANE Dirk :1950???Age:74 Y???Sex:Male Phone: Address:[address] [place] [address] * true * Date:? Generated for Radha carbajal/Lalo/eTransmitting on:?08/30/2024 03:01 PM EDT
--- OUTSIDE RECORDS SUMMARY | 2024-08-30 15:01 | XMS_ITS | Encounter Summary ---
Author Organization [facility] Address [address] [place] [address] Care Team Providers Care Groundman Name Role Phone Timoteo Escamilla MD Primary Care Provider [phone] Encounter Details Date Type Department Care Team (Late Contact Info) Description 06/25/[address] [facility] - Main Lab [address] [place] [phone] Khurram Zambrano PA [address] [place] [phone] Urinary tract infection, site not specified; Gross [...] Description 01/01/2025 3:00 PM EDT Office Visit [facility] Hematology Oncology [address] [place] [phone] Casey Llanes MD [address] [place] [address] documented as of this encounter Procedures Procedure Name Priority Date/Time Associated Diagnosis Comments CULTURE URINE Routine 06/25/2024 1:15 PM EST Urinary tract infection, site not specified Gross hematuria documented in this encounter Results * Culture urine (06/25/2024 1:15 PM EST) Culture, Urine No growth 06/26/2024 2:[address] [facility] Urine Urine specimen obtained by clean catch procedure / Unknown 06/25/2024 1:15 PM EST 06/25/2024 6:08 PM EST [facility] MICROBIOLOGY - NERAL ORDERABLES Final Result [facility] [address] [place] [address], documented in this encounter Visit Diagnoses Diagnosis Urinary tract infection, site not specified Gross hematuria documented in this encounter Care Teams Groundman Relationship Specialty Start Date End Date Timoteo Escamilla MD [address] [place] [phone] PCP - General 02/23/22 documented as of this encounter
--- OUTSIDE RECORDS SUMMARY | 2024-08-30 15:01 | XMS_ITS | Encounter Summary ---
Author Organization [facility] Address [address] [place] [address] Care Team Providers Care Sales Project Administrator Name Role Phone Timoteo Escamilla MD Primary Care Provider [phone] Encounter Details Date Type Department Care Team (Late Contact Info) Description 06/27/2024 Lab Requisition [facility] - Main Lab [address] [place] [address] Khurram Zambrano PA [address] [place] [phone] Gross hematuria Social History Tobacco Use Types [...] Description 01/01/2025 3:00 PM EDT Office Visit [facility] Hematology Oncology [address] [place] [address] Casey Llanes MD [address] [place] [address] documented as of this encounter Procedures Procedure Name Priority Date/Time Associated Diagnosis Comments AP OUTSIDE CONSULT Routine 06/25/2024 12 :00 AM EST Gross hematuria documented in this encounter Results * Anatomic pathology outside consult (06/25/2024 12:00 AM EST) Final Diagnosis A. Urine, Voided, ([id number]): Negative for high grade urothelial carcinoma. Results of UroVysion fluorescence in situ hybridization (FISH) testing: Although FISH was performed, insufficient non-obscured hybridization signals are present for evaluation and interpretation. 07/08/2024 4:42 PM EDT [facility] Clinical Information Gross hematuria R31.0 Urine Cytology/FISH (now) 07/08/2024 4:42 PM EDT [facility] Gross Description A. Urine, Voided, ([id number]): Received one ThinPrep slide for cytology and one ThinPrep slide for UroVysion FISH 07/08/2024 4:42 PM EDT [facility] Disclaimer Unless otherwise specified, all tissue is 10% NB formalin fixed and paraffin embedded. Technical pathology services provided by [facility] at [address], [place] [address] (CLIA #[id number]/Amy Stringer MD, Impregnating Machine Operator) 07/08/2024 4:42 PM EDT [facility] Tissue Urine specimen from urethra / Unknown 06/25/2024 06/27/2024 4:00 PM EST us [facility] PATHOLOGY ORDERAB LES Final Result [facility] [address] [place] [address], documented in this encounter Visit Diagnoses Diagnosis Gross hematuria documented in this encounter Care Teams Sales Project Administrator Relationship Specialty Start Date End Date Timoteo Escamilla MD [address] [place] [address] PCP - General 02/23/22 documented as of this encounter
--- OUTSIDE RECORDS SUMMARY | 2024-08-30 15:01 | XMS_ITS ---
Author Organization [facility] Address [address] [place] [address] Care Team Providers Care Secretary Specialist Name Role Phone CYN FAJARDO Primary Care Provider Olga Sarabia Unavailable [phone] Allergies Allergen (clinical drug ingredient) Drug/Non Drug [...] 07/25/2024 Encounters Encounter Location Date Provider Diagnosis [facility] [address] [place] [address] 07/25/2024 Olga Sarabia Pre-operative examination Z01.818 and [...] cataract surgery BL, on August 05/2025 with [facility] eye [facility] with Dr. Robledo. Plan as [...] he does follow with Coumadin clinic at [facility]. Advised patient to check with the eye [...] cataract surgery BL, on August 05/2025 with [facility] eye care with Dr. Robledo. Plan [...] he does follow with Coumadin clinic at [facility]. Advised patient to check with the eye [...] * Dirk MOMINDOB: [birth year] (74 yo M)Acc No.[id number]:07/25/2024 Progress Note Patient:Dirk ZHONG Appointment Provider:Silver Sarabia :1950???Age:74 Y???Sex:Male Sup ervising Provider:Beto Morgan Phone: Date:07/25/2024 Address:[address] [place] [address] , [facility] [id number] Pcp:CYN FAJARDO Subjective: * Chief Complaints: * ???PV Eye-No labs/EKG needed * HPI: ???Internal Medicine:?Mr. Momin is a 74-year-old gentleman with hypertension, hyperlipidemia, COPD, low testosterone, AAA, cervical radiculopathy, atrial fibrillation and status post lung cancer and resection of the right upper lobe here for pre-op cataract surgery BL, on August 05/2025 with [facility] eye care with Dr. Robledo. He is non-smoker. He is on Warfarin managed by [facility]. He is able to do [...] obstruction 06/26/16cervical spine 09/17/13Right upper lobectomy at [facility] 09/2018 * Hospitalization/Major Diagno stic Procedure:?right lobectomy [...] 65 in. * ???Past Orders: ???Lab:Albumin/Creatinine Ra shalonda,Urine-[id number] (Order Date - 01/08/2024) (Collection Date & Time - 07/19/2024 10:22 AM) ? Value Reference Range ?Creatinine, Urine 81.3 No t Estab. - mg/dL ?Albumin, Urine 10.6 Not E stab. - ug/mL ?Alb/Creat Ratio 13 0-29 - mg/g creat ???Lab:Comp. Metabolic Panel ([id number] (Order Date - 01/08/2024) (Collection Date & [...] ?eGFR 90 >59 - mL/min/1. 73 ???Lab:Lipid Panel-[id number] (O rder Date - 01/08/2024) (Collection Date & Time - 07/19/2024 10:22 AM) ? Value Reference Range ?Cholesterol, Total 163 1 00-199 - mg/dL ?Triglycerides 81 0-149 - mg/dL ?HDL Cholesterol 62 >39 - mg/dL ?VLDL Cholesterol Huan 15 5-40 - mg/dL ?LDL Chol Calc ([facility]) 86 0-99 - mg/dL ???Lab:Hemoglobin [id number] (Order Date - 01/08/2024) (Collection Date & [...] and lower extremities, sensory exam intact.?FEMALE GENITOURINARY:?__.?MALE GENITOURINARY:?__.?PODIATRIC:?Normal.?Register Of Deeds? .? Assessment: * Assessment: 1.?Pre-operative examination - Z01.818 (Primary)???2.?Impaired fasting glucose - R73.01??? Mr. Momin is a 74-year-old gentleman with hypertension, hyperlipidemia, COPD, low testosterone, AAA, cervical radiculopathy, atrial fibrillation and status post lung cancer and resection of the right upper lobe here for pre-op cataract surgery BL, on August 05/2025 with [facility] eye care with Dr. Robledo. Plan [...] he does follow with Coumadin clinic at [facility].? Advised patient to check with the eye [...] upon request Plan: * Treatment: * Procedure Codes:?11082 ELECT ROCARDIOGRAM, COMPLETE * Follow Up:?Next appointment * Images: Review Notes: Beto Morgan 2024-07-25 16:10:30* Electronically co-signed by Beto Morgan on 07/25/2024 at 04:10 PM EDT Sign off status: Completed true * Appointment Provider:?Olga Martinez te:?07/25/2024 Generated for Radha carbajal/Lalo/eTransmitting on:?08/30/2024 03:01 PM EDT History and Physical Notes * HPI (History of Present Illness) Category Sub-Category Detail Notes Category Not es Internal Medicine Mr. Óscar younger is a 74-year-old gentleman with hypertension, hyperlipidemia, COPD, low testosterone, AAA, cervical radiculopathy, atrial fibrillation and status post lung cancer and resection of the right upper lobe here for pre-op cataract surgery BL, on August 05/2025 with [facility] eye care with Dr. Robledo. He is non-smoker. He is on Warfarin managed by [facility]. He is able to do [...] Normal Psychiatry Normal OROPHARYNX Normal SINUSES Normal Register Of Deeds
[2024-08-30 15:06] LABS: Prothrombin Time Whole Bld POC 35.3 sec (11.1-13.5); ~PT, ~INR - Anti Coag Clinic 2.9 (0.9-1.1)
--- NOTE | 2024-08-30 15:11 | MHC.OFFVISCO ---
Intake Intake Visit Reasons: Anticoagulation Allergies bupropion [From Wellbutrin] Allergy (Intermediate, Verified 08/30/24 14:59) Nausea levofloxacin [From LEVAQUIN] Allergy (Intermediate, Verified 08/30/24 14:59) GI UPSET/ WEIGHT LOSS, anaphylaxis sulfamethoxazole [From Bactrim] Allergy (Intermediate, Verified 08/30/24 14:59) rash trimethoprim [From Bactrim] Allergy (Intermediate, Verified 08/30/24 14:59) rash ibuprofen Allergy (Mild, Verified 08/30/24 14:59) GI DISTRESS Medication List - Last Reconciled 08/30/24 by Cherrie Parker RN acetaminophen 500 mg PO Q6H PRN albuterol sulfate 90 mcg/actuation 2 puffs PO Q6H PRN albuterol sulfate 2.5 mg (3 mL) continuous nebulization QID PRN atorvastatin 20 mg PO DAILY calcium citrate 500 mg (2 x 250 mg calcium) PO BID 90 days carvedilol 3.125 mg PO BID cholecalciferol (vitamin D3) 100 mcg (2 x 50 mcg (2,000 unit)) PO DAILY 90 days diltiazem HCl 120 mg PO BID doxycycline hyclate 100 mg PO BID [ENSURE / BOOST PO DAILY] yzzxppiqwzj-opjpelcsw-nzlysbxd 100-62.5-25 mcg (Trelegy Ellipta) 1 inh inhalation DAILY 30 days Lactobacillus rhamnosus GG (Culturelle) 1 cap PO DAILY zspeyuogzudg-frlghwui-xgyvwd 1 tab PO DAILY nebulizers As directed oxycodone 10 mg PO Q6H PRN oxycodone ER (OxyContin) 10 mg PO Q12H Oxygen Home Use As directed sertraline 25 mg PO BEDTIME simethicone (Gas Relief (simethicone)) 160 mg (2 x 80 mg) PO TID PRN 30 days sodium chloride 7% 4 mL inhalation BID theophylline ER 400 mg PO DAILY warfarin 2.5 mg See Protocol PO DAILY Nursing Note INR: 2.9 in therapeutic range Medications and supplements reviewed No changes in health, diet, medications, or supplements, Denies any signs and symptoms of bleeding or bruising or clotting. Bleeding, bruising, clotting discussed Nutritional guidance given Dose: 3.75mg x 2 days / 2.5mg x 5 days F/U INR: 1 month Patient verbalizes understanding of instructions given Anti-Coag Initial Assessment Social Hx Patient Tobacco Use Status: Former Tobacco user Tobacco use type: Cigarette Alcohol intake frequency: former alcohol drinker Coding Level of Care Code Est Patient Level 1 Diagnoses Current use of anticoagulant therapy Z79.01 Results AMB INR Fingerstick AMB INR Fingerstick 2.9 Last Edit by Cherrie Parker RN on 08/30/24 15:07 Assessment & Plan Assessment & Plan (1) Current use of anticoagulant therapy: Code(s): Z79.01 - group home (current) use of 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
== END 2024-08-30 15:15 | disposition home or self-care (01) ==
LOC: HO.ACS 14:58
PROVIDERS: PCP Hospitalist; Visit Provider Internal Medicine Medical Oncology
DX: Z79.01 Long term (current) use of anticoagulants (principal)

== ENCOUNTER → 2024-08-30 14:58 | Outpatient (BNVA) | payer MEDICARE, SELFPAY | PROVIDERS: PCP Hospitalist; Visit Provider Internal Medicine Medical Oncology | DX: Z86.73 Personal history of transient ischemic attack (TIA), and cerebral infarction without residual deficits (principal); Z79.01 Long term (current) use of anticoagulants; Z51.81 Encounter for therapeutic drug level monitoring | CPT/HCPCS: 85610; 99211 ==

== ENCOUNTER 2024-09-30 14:54 | Outpatient (AMB) | payer MEDICARE, SELFPAY ==
[2024-09-30 15:01] LABS: Prothrombin Time Whole Bld POC 27.1 sec (11.1-13.5); ~PT, ~INR - Anti Coag Clinic 2.3 (0.9-1.1)
--- NOTE | 2024-09-30 15:10 | MHC.OFFVISCO ---
Intake Intake Visit Reasons: Anticoagulation Allergies bupropion [From Wellbutrin] Allergy (Intermediate, Verified 09/30/24 14:55) Nausea levofloxacin [From LEVAQUIN] Allergy (Intermediate, Verified 09/30/24 14:55) GI UPSET/ WEIGHT LOSS, anaphylaxis sulfamethoxazole [From Bactrim] Allergy (Intermediate, Verified 09/30/24 14:55) rash trimethoprim [From Bactrim] Allergy (Intermediate, Verified 09/30/24 14:55) rash ibuprofen Allergy (Mild, Verified 09/30/24 14:55) GI DISTRESS Medication List - Last Reconciled 09/30/24 by Cherrie Parker RN acetaminophen 500 mg PO Q6H PRN albuterol sulfate 90 mcg/actuation 2 puffs PO Q6H PRN albuterol sulfate 2.5 mg (3 mL) continuous nebulization QID PRN atorvastatin 20 mg PO DAILY calcium citrate 500 mg (2 x 250 mg calcium) PO BID 90 days carvedilol 3.125 mg PO BID cholecalciferol (vitamin D3) 100 mcg (2 x 50 mcg (2,000 unit)) PO DAILY 90 days diltiazem HCl 120 mg PO BID doxycycline hyclate 100 mg PO BID [ENSURE / BOOST PO DAILY] ayxwcspjdps-yidtdpsyd-oaalopmh 100-62.5-25 mcg (Trelegy Ellipta) 1 inh inhalation DAILY 30 days Lactobacillus rhamnosus GG (Culturelle) 1 cap PO DAILY koispekamcef-yvxjyzol-wupuwd 1 tab PO DAILY nebulizers As directed oxycodone 10 mg PO Q6H PRN oxycodone ER (OxyContin) 10 mg PO Q12H Oxygen Home Use As directed sertraline 25 mg PO BEDTIME simethicone (Gas Relief (simethicone)) 160 mg (2 x 80 mg) PO TID PRN 30 days sodium chloride 7% 4 mL inhalation BID theophylline ER 400 mg PO DAILY warfarin 2.5 mg See Protocol PO DAILY Nursing Note INR: 2.3 in therapeutic range Medications and supplements reviewed No changes in health, diet, medications, or supplements, Denies any signs and symptoms of bleeding or bruising or clotting. Bleeding, bruising, clotting discussed Nutritional guidance given Dose: 3.75MG X 2 DAYS/ 2.5MG X 5 DAYS F/U INR: 1 MONTH Patient verbalizes understanding of instructions given Anti-Coag Initial Assessment Social Hx Patient Tobacco Use Status: Former Tobacco user Tobacco use type: Cigarette Alcohol intake frequency: former alcohol drinker Coding Level of Care Code Est Patient Level 1 Diagnoses Current use of anticoagulant therapy Z79.01 Results AMB INR Fingerstick AMB INR Fingerstick 2.3 Last Edit by Cherrie Parker RN on 09/30/24 15:01 manual entry FAILED INTERFACING Assessment & Plan Assessment & Plan (1) Current use of anticoagulant therapy: Code(s): Z79.01 - terminal clerk (current) use of 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
--- OUTSIDE RECORDS SUMMARY | 2024-09-30 16:41 | XMS_ITS | Clinical Summary ---
Author Organization [facility] Address [address] [place] [address] Care Team Providers Care Top Cleaner Name Role Phone Timoteo Escamilla MD Primary Care Provider [phone] Allergies Active Allergy Reactions Criticality Noted Date [...] - Pfizer risk series) 09/20/2020 08/23/2020, 08/01/2020 RSV Adult > 60+ Yrs or (1 - 1-dose 75+ series) 02/15/2024 Influenza Vaccine (Season Ended) 2024 01/28/2019, 05/16/2017, 03/03/2016 Hepatitis B Vaccines Aged Out No long er eligible based on patient's age to complete this topic RSV Ped < 20 months Aged Out No longe r eligible based on patient's age to complete this topic Care Teams Top Cleaner Relationship Specialty Start Date End Date Timoteo Escamilla MD [address] [place] [address] PCP - General Internal Medicine 02/23/22
== END 2024-09-30 15:13 | disposition home or self-care (01) ==
LOC: HO.ACS 14:54
PROVIDERS: PCP Hospitalist; Visit Provider Internal Medicine Medical Oncology
DX: Z79.01 Long term (current) use of anticoagulants (principal)

== ENCOUNTER → 2024-09-30 14:54 | Outpatient (BNVA) | payer MEDICARE, SELFPAY | PROVIDERS: PCP Hospitalist; Visit Provider Internal Medicine Medical Oncology | DX: Z86.73 Personal history of transient ischemic attack (TIA), and cerebral infarction without residual deficits (principal); Z79.01 Long term (current) use of anticoagulants; Z51.81 Encounter for therapeutic drug level monitoring | CPT/HCPCS: 85610; 99211 ==

== ENCOUNTER 2024-10-28 14:45 | Outpatient (AMB) | payer MEDICARE, SELFPAY ==
[2024-10-28 15:05] LABS: Prothrombin Time Whole Bld POC 28.6 sec (11.1-13.5); ~PT, ~INR - Anti Coag Clinic 2.4 (0.9-1.1)
--- OUTSIDE RECORDS SUMMARY | 2024-10-28 15:15 | XMS_ITS | Patient Health Record ---
Author Organization [facility] Address [address] [place] [address] Care Team Providers Care Corrugated Box Machine Operator Name Role Phone SCOTTY CYN Primary Care Provider Sarwat Lopez [phone] Allergies Allergen (clinical drug ingredient) Drug/Non Drug [...] 5 MG Oral for 90 Active Creon 18062 UNIT take 1 15-30 minutes before each [...] Problem Screening for malignant neoplasm of colon (250033695) Encounter for screening for malignant neoplasm of colon (Z12.11) Active confirmed Problem Diarrhea (41451205) Diarrhea (R19.7) Active confirmed Problem 748784447 Weight loss (R63.4) Active confirmed Problem Irritable bowel syndrome with diarrhea (839727800) Irritable bowel syndrome with diarrhea (K58.0) Active confirmed Problem 051258091 Flatulence (R14.3) Active confirmed Problem 20527728 Constipation, unspecified constipation type (K59.00) Active confirmed Problem 01937987 Abdominal cramps (R10.9) Active confirmed Problem 77539353 Other ulcerative colitis without complication (K51.80) Active confirmed Problem 218504436 Anemia, unspecified type (D64.9) Active confirmed Problem Ulcerative colitis (84261484) Ulcerative colitis (K51.90) Active confirmed Problem 42851941 Diarrhea, unspecified type (R19.7) Active confirmed Problem 397842178 Chronic pancreatitis, unspecified pancreatitis type (K86.1) Active confirmed Problem Clostridium difficile diarrhea (6231062382310) Clostridium difficile diarrhea (A04.72) Active confirmed Problem Clostridioides difficile infection (330303819) Clostridioides difficile infection (A49.8) Active confirmed Plan [...] Date [employer] [address] [place] [address] [phone] [id number] LEIGHTON MELGAR Self - patient is the insured Medical (General) History Medical History History ICD Code Most recent colonoscopy was 03/10/2010--no active colitis, no dysplasia on biopsies, no polyps Stroke-causing some partial loss of visi on in the left eye 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 Ramos Hyperlipidemia Ulcerative colitis dating back to the Denies ID,DM,renal disease Chronic back pain--spinal stenosis AAA--approx 3 cm-followed with periodic U/S RUL Lung cancer with surgery as below C.diff infection 04/2020 Colonoscopy 07/2020--normal e xcept for 1 small tubular adenoma--no colitis, no dysplasia Neg. ETT in 05/2021 Surgical History Surgery Date(Month/Year) Perirectal abscess surgery Neck surgery for 3 discs--Dr. 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 Hampton at [facility] 06/2016 RUL lobectomy for cancer-Dr. Newman-no chemo/XRT- told that he is cancer-free 04/2018
--- OUTSIDE RECORDS SUMMARY | 2024-10-28 15:15 | XMS_ITS | Clinical Summary ---
Author Organization [facility] Address [address] [place] [address] Care Team Providers Care Net Architect Name Role Phone Timoteo Escamilla MD Primary Care Provider [phone] Allergies Active Allergy Reactions Criticality Noted Date [...] 105 01/02/2024 3:12 PM EDT Temperature 37.1 C (98.7 F) 01/02/2024 3:12 PM EDT Respiratory Rate - - Oxygen Saturation 96% [...] - 1-dose 75+ series) 02/15/2024 Influenza Vaccine (#1) 2024 9, 05/16/2017, 03/03/2016 Hepatitis B Vaccines Aged Out No long er eligible based on patient's age to complete this topic RSV Ped < 20 months Aged Out No longe r eligible based on patient's age to complete this topic Care Teams Net Architect Relationship Specialty Start Date End Date Timoteo Escamilla MD [address] [id number] PCP - General Internal Medicine 02/23/22
--- OUTSIDE RECORDS SUMMARY | 2024-10-28 15:15 | XMS_ITS | Clinical Summary ---
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 SARS-CoV-2 COVID-19, mRNA, LNP-S, preservative free [...] 105 01/02/2024 3:12 PM EDT Temperature 37.2 C (98.9 F) 07/03/2024 3:01 PM EDT Respiratory Rate - - Oxygen Saturation 97% [...] Description 01/01/2025 3:00 PM EDT Office Visit [facility] Hematology Oncology [address] [place] [address] Casey Llanes MD [address] [place] [address] Health Maintenance Due Date Last [...] 75+ series) 02/15/2024 Influenza Vaccine (#1) 2024 3, 03/23/2022, 01/23/2020, Additional history exists Pneumococcal Vaccine: [...] topic Insurance [employer] Care Teams Curator Zoological Museum Relationship Specialty Start Date End Date Timoteo Escamilla MD [address] [place] [phone] PCP - General 02/23/22
--- NOTE | 2024-10-28 15:16 | MHC.OFFVISCO ---
Intake Intake Visit Reasons: Anticoagulation Allergies bupropion (From Wellbutrin) Allergy (Intermediate, Verified 10/28/24 14:59) Nausea levofloxacin (From LEVAQUIN) Allergy (Intermediate, Verified 10/28/24 14:59) GI UPSET/ WEIGHT LOSS, anaphylaxis sulfamethoxazole (From Bactrim) Allergy (Intermediate, Verified 10/28/24 14:59) rash trimethoprim (From Bactrim) Allergy (Intermediate, Verified 10/28/24 14:59) rash ibuprofen Allergy (Mild, Verified 10/28/24 14:59) GI DISTRESS Medication List - Last Reconciled 10/28/24 by Cherrie Parker RN acetaminophen 500 mg PO Q6H PRN albuterol sulfate 90 mcg/actuation 2 puffs PO Q6H PRN albuterol sulfate 2.5 mg (3 mL) continuous nebulization QID PRN atorvastatin 20 mg PO DAILY calcium citrate 500 mg (2 x 250 mg calcium) PO BID 90 days carvedilol 3.125 mg PO BID cholecalciferol (vitamin D3) 100 mcg (2 x 50 mcg (2,000 unit)) PO DAILY 90 days diltiazem HCl 120 mg PO BID doxycycline hyclate 100 mg PO BID [ENSURE / BOOST PO DAILY] iwrdivdqecp-xqojulvui-vsmnvdej 100-62.5-25 mcg (Trelegy Ellipta) 1 inh inhalation DAILY 30 days Lactobacillus rhamnosus GG (Culturelle) 1 cap PO DAILY emrvuuartvjc-oiljwswp-hfpcje 1 tab PO DAILY nebulizers As directed oxycodone 10 mg PO Q6H PRN oxycodone ER (OxyContin) 10 mg PO Q12H Oxygen Home Use As directed sertraline 25 mg PO BEDTIME simethicone (Gas Relief (simethicone)) 160 mg (2 x 80 mg) PO TID PRN 30 days sodium chloride 7% 4 mL inhalation BID theophylline ER 400 mg PO DAILY warfarin 2.5 mg See Protocol PO DAILY Held on 07/20/23. Instructions: Resume on 07/21/23. if coughing blood needs to continue holding coumadin and call the office Nursing Note INR: 2.4 in therapeutic range Medications and supplements reviewed Pt status: pt feeling well today, lips and nail beds pink,speaking in full sentences without oxygen, his main concern right now is weight loss, states he eats 3 meals a day but unable to keep weight on, enc to drink chicken broth in between meals if the ensure upsets his stomach, or try pea protein shakes and discuss with md about testing for malabsorption syndrome and test for parasites Denies any signs and symptoms of bleeding or bruising or clotting. Bleeding, bruising, clotting discussed Nutritional guidance given Dose: keep same dose for now 3.75mg x 2 days/ 2.5mg x 5 days F/U INR: 1 month Patient verbalizes understanding of instructions given Anti-Coag Initial Assessment Social Hx Patient Tobacco Use Status: Former Tobacco user Tobacco use type: Cigarette Alcohol intake frequency: former alcohol drinker Coding Level of Care Code Est Patient Level 1 Diagnoses Current use of anticoagulant therapy Z79.01 Results AMB INR Fingerstick AMB INR Fingerstick 2.4 Last Edit by Cherrie Parker RN on 10/28/24 15:06 manual entry Assessment & Plan Assessment & Plan (1) Current use of anticoagulant therapy: Code(s): Z79.01 - care home (current) use of 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
--- OUTSIDE RECORDS SUMMARY | 2024-10-28 15:16 | XMS_ITS | Patient Health Record ---
Author Organization [employer] [facility] Address [address] [place] [address] Care Team Providers Care Conveyor System Dispatcher Name Role Phone CYN FAJARDO Primary Care Provider [phone] Olga Sarabia Unavailable [phone] Allergies Allergen (clinical drug ingredient) Drug/Non Drug [...] Cytology/FISH (now) Final Diagnosis A. Urine, Voided, ([id number]): Negative for high grade urothelial carcinoma. Results of UroVysion fluorescence in situ hybridization (FISH) testing: Although FISH was performed, insufficient non-obscured hybridization signals are present for evaluation and interpretation. Gross Description A. Urine, Voided, ([id number]): Received one ThinPrep slide for cytology and one ThinPrep slide for UroVysion FISH Disclaimer Unless otherwise specified, all tissue is 10% NB formalin fixed and paraffin embedded. Technical pathology services provided by [facility] at [address] [place] [address] [address], [place] [address] (CLIA #[id number]/Rachel Stringer MD, Property Disposal Manager) Clinical Information Gross hematuria R31.0 Hemoglobin [id number] Reviewed date:07/21/2024 09:01:25 AM Interpretation: Performing Lab:[facility], [address] [place] [address], Phone - [phone], Director - Fabio Notes/Report: Hemoglobin A1c 5.7 4.8-5.6 % . Prediabetes: 5.7 - 6.4 Diabetes: >6.4 Glycemic control for adults with diabetes: <7.0 Lipid Panel-[id number] Reviewed date:07/21/2024 09:01:44 AM Interpretation: Performing Lab:[facility], [address] [place] [address], Phone - [phone], Director - Fabio Notes/Report: Cholesterol, Total 163 100-199 mg/dL Triglycerides 81 0-149 mg/dL HDL Cholesterol 62 >39 mg/dL VLDL Cholesterol Huan 15 5-40 mg/dL LDL Chol Calc (NIH) 86 0-99 mg/dL Comp. Metabolic Panel ([id number] Reviewed date:07/21/2024 09:02:02 AM Interpretation: Performing Lab:[facility], [address] [place] [address], Phone - [phone], Director - Fabio Notes/Report: Glucose 106 70-99 [...] ALT (SGPT) 9 0-44 IU/L Albumin/Creatinine Ratio,Uri ne-[id number] Reviewed date:07/21/2024 09:02:08 AM Interpretation: Performing Lab:[facility] [address] [place] [address], [place], Phone - [phone], Director - Fabio Notes/Report: Creatinine, Urine 81.3 Not Estab. mg/dL Albumin, Urine 10.6 Not Estab. ug/mL Alb/Creat Ratio 13 0-29 mg/g creat Normal: 0 - 29 Moderately increased: 30 - 300 Severely increased: >300 CULTURE URINE Reviewed date:06/26/2024 04:41:22 PM Interpretation: Performing Lab: Notes/Report: Culture, Urine No growth Reason For Referral No Information Medications Medication SIG (Take, Route, Frequency, Duration) Notes Start Date End Date Status Mesalamine 800 MG 1 tablet Orally twic e a day Unknown Theophylline ER 400 MG 1 tablet Orally O nce a day Active Amoxicillin 500 MG 1 capsule Orally valentin ry 8 hrs; Duration: 5 days 05/12/2023 Unknown Mucinex 600 MG 1 tablet as needed Orally every 12 hrs Active Testim 50 MG/5GM (1%) 1 packet to skin i n the morning Transdermal Once a day; Duration: 30 days 08/11/2021 Unknown Benzonatate 100 MG 1 capsule as needed Orally Three times a day; Duration: 7 days 04/28/2023 Unknown Doxycycline Active predniSONE 20 MG 1 tablet Orally Once a day; Duration: 7 days 04/28/2023 Unknown Calcium Citrate 250 MG 1 tablet Orally O nce a day Active fentaNYL 12 MCG/HR 1 patch to skin Transdermal PSSP Unknown Vitamin D2 2000 UNIT 1 tablet Orally Onc e a day Active Pepto-Bismol As needed Unknown Atorvastatin Calcium 40 MG 1 tablet Orally Once a day Active predniSONE 20 MG as directed Orally O nce a day; Duration: 30 days 01/07/2021 Unknown Trelegy Ellipta 100-62.5-25 MCG/INH 1 puff Inhalation Once a day Active Zofran 4 MG 1 tablet Orally bid as needed; Duration: 14 days 05/17/2019 Unknown Dicyclomine HCl 10 MG 1-2 capsules Orall y every 4-6 hours Unknown Megestrol Acetate 40 MG 1 tablet Orally Once a day; Duration: 30 days 02/24/2023 Unknown Centrum Silver - as directed Orally o ne daily Active oxyCODONE HCl 15 MG 1 tablet Orally ever y 6 hrs PSSP Active Warfarin Sodium 2.5 MG TAKE 1 TABLET BY MOUTH EVERY DAY Once a day; Duration: 90 days Active Cardizem CD 240 MG 1 capsule Orally Onc e a day Active Azithromycin 250 MG 1 tablet Orally 2 tablets on the first day, then 1 tablet daily; Duration: 5 days 04/28/2023 Active Carvedilol 3.125 MG TAKE 1 TABLET BY GILBERT TH TWICE DAILY WITH FOOD; Duration: 30 Active Sertraline HCl 25 MG TAKE 2 TABLETS BY M OUTH EVERY DAY; Duration: 30 days Active dilTIAZem HCl 120 MG TAKE 1 TABLET BY MO UTH TWICE DAILY DIRECTED; Duration: 54 Active ProAir RespiClick 108 (90 Base) MCG/ACT 1-2 puff as needed Inhalation every 4 hrs; Duration: 30 days Active Lovenox 60 MG/0.6ML 60 mg Injection daily; Duration: 5 days take it every day in the morning subcutaneous. Do not take on the day of procedure 08/11/2023 Active Enoxaparin Sodium 60 MG/0.6ML as directed Subcutaneous twice daily; Duration: 5 days 09/05/2018 Unknown ProAir HFA 108 (90 Base) MCG/ACT 2 puffs as needed Inhalation every 6 hrs; Duration: 30 days Active Anoro Ellipta 62.5-25 MCG/INH 1 puff Inhalation Once a day Unknown Metoprolol Tartrate 25 MG 1 tablet with food Orally Twice a day; Duration: 90 Unknown Immunizations Vaccine Route Administration Date [...] Risk Notes Problem Malignant tumor of lung (420410599) Malignant neoplasm of unspecified part of unspecified bronchus or lung (C34.90) Active confirmed Problem 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 confirmed Problem Generalized anxiety disorder (21261241) Generalized anxiety disorder (F41.1) Active confirmed Problem Atrial fibrillation (43544883) Unspecified atrial fibrillation (I48.91) Active confirmed Problem Cerebral infarction (075867879) Cerebral infarction, unspecified (I63.9) Active confirmed Problem Occlusion and stenosis of multiple and bilateral cerebral arteries (634328045) Occlusion and stenosis of bilateral carotid arteries (I65.23) Active confirmed Problem Chronic obstructive pulmonary disease (84197520) Chronic obstructive pulmonary disease, unspecified (J44.9) Active confirmed Problem Chronic respiratory failure (43768368) Chronic respiratory failure with hypoxia (J96.11) Active confirmed Problem Localized infection of skin AND/OR subcutaneous tissue (956042703) Local infection of the skin and subcutaneous tissue, unspecified (L08.9) Active confirmed Problem Cervical radiculopathy (42539075) Radiculopathy, cervical region (M54.12) Active confirmed Problem Muscle weakness (90704017) Muscle weakness (generalized) (M62.81) Active confirmed Problem Solitary pulmonary nodule (257045802) Solitary pulmonary nodule (R91.1) Active confirmed Problem History of excision of intestinal structure (441584886) Acquired absence of other specified parts of digestive tract (Z90.49) Active confirmed Problem Abdominal aortic aneurysm without rupture (89478969) Abdominal aortic aneurysm, without rupture (I71.4) Active confirmed Problem Essential hypertension (91704617) Essential (primary) hypertension (I10) Active confirmed Problem Intestinal obstruction (63446818) Unspecified intestinal obstruction, unspecified as to partial versus complete obstruction (K56.609) Active confirmed Problem History of disease caused by Severe acute respiratory syndrome coronavirus 2 (situation) (8192929352706782 05) Personal history of COVID-19 (Z86.16) Active confirmed Vital Signs Heart Rate 95 /min 07/25/2024 Temperature 97.9 degrees Fahrenheit 07/25/2024 Blood pressure diastolic 72 mm Hg 07/25/2024 Oximetry 100 % 07/25/2024 Height 65 in 07/25/2024 Blood pressure systolic 120 mm Hg 07/25/2024 Weight 95.4 lbs 07/25/2024 BMI 15.87 kg/m2 07/25/2024 Encounters Encounter Location Date Provider Diagnosis [facility] [address] [place] [address] 01/08/2024 [facility] Essential (primary) hypertension I10 ; Encounter for general adult medical examination without abnormal findings Z00.00 ; Chronic obstructive pulmonary disease, unspecified J44.9 ; Malignant neoplasm of unspecified part of unspecified bronchus or lung C34.90 ; Unspecified atrial fibrillation I48.91 and Impaired fasting glucose R73.01 [facility] [address] [place] [address] 06/04/2024 Olga Sarabia Person consulting fo r explanation of examination or test findings Z71.[address] [place] [address] 07/25/2024 Olga Sarabia Pre-operative examination Z01.818 and Impaired fasting glucose R73.01 [facility] [address] [place] [address] 12/21/[address] [place] [address] 02/27/[address] [place] [address] 04/01/2024 [facility] [address] [place] [address] 04/25/[address] [place] [address] 05/15/[address] [place] [address] 05/23/[address] [place] [address] 05/23/[address] [place] [address] 05/29/[address] [place] [address] 06/05/2024 [facility] [address] [place] [address] 06/06/2024 [facility] [address] [place] [address] 07/10/[address] [place] [address] 07/16/[address] [place] [address] 07/25/[address] [place] [address] 09/03/[address] [place] [address] 09/19/[address] [place] [address] 10/14/[address] [place] [address] 10/14/2024 [facility] Encounter Date Diagnosis (ICD Code) Assessment Notes Treatment Notes Treatment Clinical Notes Section Notes 01/08/2024 Encounter for general adult medical examination [...] stone. Status post lithotripsy by urologist at [facility]. His hematuria has improved Impaired fasting glucose. Dietary restrictions, regimental exercise and weight loss advised. check A1c. Eye screening. He sees his stereo map plotter operator regularly. Dental screening. He sees dentist regularly. Colon cancer screening. He had his colonoscopy done every 4 years. Immunizations. He is up-to-date on his TDAP and pneumonia vaccinations. Blood work reviewed with patient and questions answered. Screening blood work before next appointment. General health concerns discussed with patient. Scribe services used to formulate this note under HIPAA compliance and under [place] law mandated for scribe services. Patient aware [...] stone. Status post lithotripsy by urologist at [facility]. His hematuria has improved Impaired fasting glucose. Dietary restrictions, regimental exercise and weight loss advised. check A1c. Eye screening. He sees his stereo map plotter operator regularly. Dental screening. He sees dentist regularly. Colon cancer screening. He had his colonoscopy done every 4 years. Immunizations. He is up-to-date on his TDAP and pneumonia vaccinations. Blood work reviewed with patient and questions answered. Screening blood work before next appointment. General health concerns discussed with patient. Scribe services used to formulate this note under HIPAA compliance and under [place] law mandated for scribe services. Patient aware of service. Verbal consent and written consent taken from the patient. Patient understands and verbalizes understanding of the scribes services and all questions answered regarding scribes services. Patient agrees to use of scribes services. 06/04/2024 Person consulting for explanation of examination or test findings (ICD-10 - Z71.2) Mr. Angeles is a 74-year-old gentleman with hypertension, hyperlipidemia, COPD, low testosterone, AAA, cervical radiculopathy, atrial fibrillation and status post lung cancer and resection of the right upper lobe here for colonoscopy result. He recently underwent EGD and c-scope. EGD came back unremarkable for pathology. C-scope shows moderate diverticulosis, 3 polyps were detected and removed for biopsy. Overall screening is unremarkable. Pathology came back negative for hpylori/celiac. No more recommended for GI screening given age and comorbid. With diverticulosis recommended increasing fiber diet and hydration to avoid divertculitis. General concerns have been discussed I have [...] cataract surgery BL, on August 05/2025 with [facility] eye care with Dr. Robledo. Plan [...] he does follow with Coumadin clinic at [facility]. Advised patient to check with the eye [...] cataract surgery BL, on August 05/2025 with [facility] eye [facility] with Dr. Robledo. Plan as follows: pre-op [...] he does follow with Coumadin clinic at [facility]. Advised patient to check with the eye [...] stone. Status post lithotripsy by urologist at [facility]. His hematuria has improved Impaired fasting glucose. Dietary restrictions, regimental exercise and weight loss advised. check A1c. Eye screening. He sees his stereo map plotter operator regularly. Dental screening. He sees dentist regularly. Colon cancer screening. He had his colonoscopy done every 4 years. Immunizations. He is up-to-date on his TDAP and pneumonia vaccinations. Blood work reviewed with patient and questions answered. Screening blood work before next appointment. General health concerns discussed with patient. Scribe services used to formulate this note under HIPAA compliance and under [place] law mandated for scribe services. Patient aware [...] stone. Status post lithotripsy by urologist at [facility]. His hematuria has improved Impaired fasting glucose. Dietary restrictions, regimental exercise and weight loss advised. check A1c. Eye screening. He sees his stereo map plotter operator regularly. Dental screening. He sees dentist regularly. Colon cancer screening. He had his colonoscopy done every 4 years. Immunizations. He is up-to-date on his TDAP and pneumonia vaccinations. Blood work reviewed with patient and questions answered. Screening blood work before next appointment. General health concerns discussed with patient. Scribe services used to formulate this note under HIPAA compliance and under [place] law mandated for scribe services. Patient aware [...] stone. Status post lithotripsy by urologist at [facility]. His hematuria has improved Impaired fasting glucose. Dietary restrictions, regimental exercise and weight loss advised. check A1c. Eye screening. He sees his stereo map plotter operator regularly. Dental screening. He sees dentist regularly. Colon cancer screening. He had his colonoscopy done every 4 years. Immunizations. He is up-to-date on his TDAP and pneumonia vaccinations. Blood work reviewed with patient and questions answered. Screening blood work before next appointment. General health concerns discussed with patient. Scribe services used to formulate this note under HIPAA compliance and under [place] law mandated for scribe services. Patient aware [...] stone. Status post lithotripsy by urologist at [facility]. His hematuria has improved Impaired fasting glucose. Dietary restrictions, regimental exercise and weight loss advised. check A1c. Eye screening. He sees his stereo map plotter operator regularly. Dental screening. He sees dentist regularly. Colon cancer screening. He had his colonoscopy done every 4 years. Immunizations. He is up-to-date on his TDAP and pneumonia vaccinations. Blood work reviewed with patient and questions answered. Screening blood work before next appointment. General health concerns discussed with patient. Scribe services used to formulate this note under HIPAA compliance and under [place] law mandated for scribe services. Patient aware [...] Date [employer] Preferred [address] [place] [address] [id number] Dirk Pedro i Self - patient is the insured 2 Medical (General) History Medical History History ICD Code Essential (primary) hypertension I10 Hyperlipidemia, unspecified E78.5 COPD and he sees Dr. Jhaveri Low testosterone levels and he sees Dr. 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 He is currently on Coumadin monitored by [facility] clinic [place] [facility]. Pulmonary nodule right lung. Positive on PET scan and planning to have resection by at [facility] Small bowel obstruction and status post resection and he sees Dr. Barr. Cervical radiculopathy and h e follows with [facility] spine and sports and is on narcotics Smokes marijuana for appetite A Fib see Dr Bazzi Personal history of COVID-19 S/P Pasturella infection Surgical History Surgery Date(Month/Year) Small bowel obstruction 06/26/16 cervical spine 09/17/13 Right upper lobectomy at [facility] 09/2018 Hospitalization History Reason Date(Month/Year) right lobectomy 10/13/18
--- OUTSIDE RECORDS SUMMARY | 2024-10-28 15:16 | XMS_ITS | Patient Health Record ---
Author Organization [facility] Address [address] [place] [address] Care Team Providers Care Hiv Nurse Name Role Phone Ming Ahmet Primary Care Provider Unavailjonathan martínez Nohelia Dickinson Unavailable [phone] Allergies Allergen (clinical drug ingredient) Drug/Non Drug Allergy documented on EMR Reaction Allergy Type Onset Date Status ibuprofen Advil stomach pain Drug Allergy Acti ve Aleve stomach pain Drug Allergy Acti ve levofloxacin Levofloxacin vomiting Drug Allergy A ctive Motrin stomach pain Drug Allergy Acti ve Reason For Referral No Information Medications Medication SIG (Take, Route, Frequency, Duration) Notes Start Date End Date Status Warfarin Sodium 5 MG Oral; Duration: 90 Active hydroCHLOROthiazide 12.5 MG Oral; Duration: 90 Active oxyCODONE HCl 15 MG (Schedule II Drug) Oral; Duration: 28 Active fentaNYL 12 MCG/HR (Schedule II Drug) Transdermal; Duration: 30 Active Advair Diskus 500-50 MCG/DOSE Inhalation ; Duration: 30 Not-Taking Aspir-81 81 MG 1 tablet Orally Once a day Active Atorvastatin Calcium 40 MG Oral; Duration: 90 Active sulfaSALAzine 500 MG Oral; Duration: 30 Active Metoprolol Succinate ER 25 MG Oral; Duration: 90 Active Social History Tobacco use other than smoking: Question Answer Notes Are you an other tobacco user? No Problems No Known Problems Plan Of Treatment Pending Test Test Name Order Date [id number] Destruction, -06/30/2015 [id number] Destruction, -08/03/2015 Insurance Providers Payer Name Payer Address Payer Phone Subscriber Number Group Number Insured Name Patient Relationship to Insured Coverage Start Date Coverage End Date [employer] Preferred [address] [place] [address] [id number] Dirk Pedro i Self - patient is the insured Medical (General) History Medical History History ICD Code Hypertension Stroke Measles Chicken pox Surgical History Surgery Date(Month/Year) cervical fusion 08/2012
== END 2024-10-28 15:22 | disposition home or self-care (01) ==
LOC: HO.ACS 14:45
PROVIDERS: PCP Hospitalist; Visit Provider Internal Medicine Medical Oncology
DX: Z79.01 Long term (current) use of anticoagulants (principal)

== ENCOUNTER → 2024-10-28 14:45 | Outpatient (BNVA) | payer MEDICARE, SELFPAY | PROVIDERS: PCP Hospitalist; Visit Provider Internal Medicine Medical Oncology | DX: I69.90 Unspecified sequelae of unspecified cerebrovascular disease (principal); Z51.81 Encounter for therapeutic drug level monitoring; Z79.01 Long term (current) use of anticoagulants | CPT/HCPCS: 85610; 99211 ==

== ENCOUNTER → 2024-11-25 15:00 | Outpatient (BNVA) | payer MEDICARE, SELFPAY | PROVIDERS: PCP Hospitalist; Visit Provider Internal Medicine Medical Oncology | DX: Z79.01 Long term (current) use of anticoagulants (principal) | CPT/HCPCS: 85610; 99211 ==

== ENCOUNTER 2024-12-25 15:58 | Outpatient (REF) | payer MEDICARE, SELFPAY ==
--- OUTSIDE RECORDS SUMMARY | 2024-06-25 11:15 | XMS_ITS ---
Author Organization [facility] Address 294 [facility] [address] [place] [address] Care Team Providers Care Robotics Systems Engineer Name Role Phone CYN FAJARDO Primary Care Provider Olga Sarabia Unavailable [phone] Encounters Encounter Location Date Provider Diagnosis [facility] 294 [facility] 202 [place] [address] 06/25/2024 Olga Sarabia Plan Of Treatment Next Appt Details Provider Name:Olga Aaron janna, 02/12/2025 02:30:00 PM, 294 [facility] [address], [place], [address], Progress Notes * Dirk MOMINDOB: [birth year] (74 yo M)Acc No.[id number]:06/25/2024 Progress Notes Patient: Dirk LOVING Appointment Provider: Tima Sarabia :1950 A ge:74 Y S ex:Male Date:06/25/2024 Phone: Address:[address] [place] [address] [id number] Pcp:CYN FAJARDO Subjective: * Chief Complaints: * * Medical History: Objective: * Vitals: Assessment: Plan: * Treatment: * Images: * Electronic signature of Marty Sarabia PA-C on 12/25/2024 at 05:48 PM EDT Sign off status: Pending * Appointment Provider: Tima Sarabia Date: 0 06/25/2024 Generated for Radha carbajal/Lalo/eTransmitting on: 0 12/25/2024 05:48 PM EDT
--- NOTE | ~2024-12-25 | XR_ITS ---
Exam: Five-view lumbar spine Comparison September 10, 2014 TECHNIQUE: AP, lateral, lateral spot, bilateral oblique x-rays of the lumbar spine INDICATION: Low back pain FINDINGS: Suture material is visible in the right hemipelvis. Calcific patient's the left hemipelvis likely represent phlebolith. Mild degenerative changes noted in the SI joints with marginal osteophytes and possible ankylosis of the superior SI joints. Moderate vascular opacifications are visible. There is gaseous distention of bowel. There are 5 nonrib-bearing lumbar segment. There is moderate superior endplate compression fracture of L1 that is new since the prior x-ray. There is minimal superior endplate compression fracture of L3, new since the prior. There is stable mild superior endplate compression fracture of L4. L3-4 and L4-5 demonstrates mild disc space narrowing and endplate osteophytes. L5-S1 demonstrates moderate disc space narrowing and endplate osteophytes. There is facet sclerosis and osteophytes at L4-5 and L5-S1. XR/XR lumbar spine 4V min IMPRESSION: Age-indeterminate superior endplate compression fractures of L1 and L3. Chronic L4 compression fracture. Multilevel degenerative disc disease and facet osteoarthritis. Moderate colonic stool and gas. Electronically signed by: Christopher Richter MD 12/25/2024 05:35 PM EDT
--- OUTSIDE RECORDS SUMMARY | 2024-12-25 17:48 | XMS_ITS | Encounter Summary ---
Author Organization [facility] Address [address] [place] [address] Care Team Providers Care Soft Iron Inspector Name Role Phone Timoteo Escamilla MD Primary Care Provider [phone] Encounter Details Date Type Department Care Team (Late Contact Info) Description 06/25/2024 Lab Requisition [facility] - Main Lab [address] [place] [phone] Khurram Zambrano PA [address] [place] [phone] Urinary tract infection, site not specified; Gross [...] Description 01/01/2025 3:00 PM EDT Office Visit [facility] Hematology Oncology [address] [place] [phone] Casey Llanes MD [address] [place] [address] documented as of this encounter Procedures Procedure Name Priority Date/Time Associated Diagnosis Comments CULTURE URINE Routine 06/25/2024 1:15 PM EST Urinary tract infection, site not specified Gross hematuria documented in this encounter Results * Culture urine (06/25/2024 1:15 PM EST) Culture, Urine No growth 06/26/2024 2:25 PM EST [facility] Urine Urine specimen obtained by clean catch procedure / Unknown 06/25/2024 1:15 PM EST 06/25/2024 6:08 PM EST [facility] MICROBIOLOGY - NERAL ORDERABLES Final Result [facility] [address] [place] [address], documented in this encounter Visit Diagnoses Diagnosis Urinary tract infection, site not specified Gross hematuria documented in this encounter Care Teams Soft Iron Inspector Relationship Specialty Start Date End Date Timoteo Escamilla MD [address] [place] [phone] PCP - General 02/23/22 documented as of this encounter
--- OUTSIDE RECORDS SUMMARY | 2024-12-25 17:48 | XMS_ITS | Patient Health Record ---
Author Organization [facility] Address [address] [place] [address] Care Team Providers Care Gin Clerk Name Role Phone Ming Ahmet Primary Care Provider Unavailjonathan martínez Nohelia iDckinson Unavailable [phone] Allergies Allergen (clinical drug ingredient) Drug/Non Drug [...] Treatment Pending Test Test Name Order Date 18637-Outf Destruction, -06/30/2015 [id number] Destruction, -08/03/2015 Insurance Providers Payer Name Payer Address Payer Phone Subscriber Number Group Number Insured Name Patient Relationship to Insured Coverage Start Date Coverage End Date [employer] Preferred [address] [place] [address] [id number] Dirk Pedro i Self - patient is the insured Medical (General) History Medical History History ICD Code Hypertension Stroke Measles Chicken pox Surgical History Surgery Date(Month/Year) cervical fusion 08/2012
--- OUTSIDE RECORDS SUMMARY | 2024-12-25 17:48 | XMS_ITS | Patient Health Record ---
Author Organization [facility] Address [address] [place] [address] Care Team Providers Care Manager Privacy Name Role Phone CYN FAJARDO Primary Care Provider Olga Sarabia Unavailable [phone] Allergies Allergen (clinical drug ingredient) Drug/Non Drug [...] Cytology/FISH (now) Final Diagnosis A. Urine, Voided, ([id number]): Negative for high grade urothelial carcinoma. Results of UroVysion fluorescence in situ hybridization (FISH) testing: Although FISH was performed, insufficient non-obscured hybridization signals are present for evaluation and interpretation. Gross Description A. Urine, Voided, ([id number]): Received one ThinPrep slide for cytology and one ThinPrep slide for UroVysion FISH Disclaimer Unless otherwise specified, all tissue is 10% NB formalin fixed and paraffin embedded. Technical pathology services provided by [facility] at [address] [place] [address] [address], [place] [address] (CLIA #[id number]/Rachel Stringer MD, Nipping Machine Operator) Clinical Information Gross hematuria R31.0 CULTURE URINE Reviewed date:06/26/2024 04:41:22 PM Interpretation: Performing Lab: Notes/Report: Culture, Urine No growth Albumin/Creatinine Ratio,Uri ne-[id number] Reviewed date:07/21/2024 09:02:08 AM Interpretation: Performing Lab:Lenore Schneider, [address] [facility], Phone - [phone], Director - MDJodry Notes/Report: Creatinine, Urine 81.3 Not Estab. mg/dL Albumin, Urine 10.6 Not Estab. ug/mL Alb/Creat Ratio 13 0-29 mg/g creat Normal: 0 - 29 Moderately increased: 30 - 300 Severely increased: >300 Comp. Metabolic Panel (14)-3 Reviewed date:07/21/2024 09:02:02 AM Interpretation: Performing Lab:Lenore Schneider, [address] [facility], Phone - [phone], Director - MDRobertay Notes/Report: Glucose 106 70-99 mg/dL BUN 13 [...] 0-40 IU/L ALT (SGPT) 9 0-44 IU/L Lipid [id number] Reviewed date:07/21/2024 09:01:44 AM Interpretation: Performing Lab:Lenore Schneider, [address] [facility], [place], Phone - [phone], Director - MDRobertay Notes/Report: Cholesterol, Total 163 100-199 mg/dL Triglycerides 81 0-149 mg/dL HDL Cholesterol 62 >39 mg/dL VLDL Cholesterol Huan 15 5-40 mg/dL LDL Chol Calc (NIH) 86 0-99 mg/dL Hemoglobin [id number] Reviewed date:07/21/2024 09:01:25 AM Interpretation: Performing Lab:[facility], [address], [place], Phone - [phone], Director - Fabio Notes/Report: Hemoglobin A1c 5.7 4.8-5.6 % . Prediabetes: 5.7 - 6.4 Diabetes: >6.4 Glycemic control for adults with diabetes: <7.0 Reason For Referral Reason A Fib- Dr Mike solorio evaluate and treat Diagnosis 1 Atrial fibrillation (I48.91) Referral Organization [facility] Referring Provider First Name CYN Referring Provider Last Name LEIRekha Referring Provider Speciality Internal M edicine Referred Provider Specialty Cardiology General Notes Please call the tha ent to schedule the appointment, Encounter created and SMS sent to the pt.Kosta Charmain 11/15/2024 03:11:37 PM > Referral Priority Routine Medications Medication SIG (Take, Route, Frequency, Duration) Notes Start Date End Date Status oxyCODONE HCl 15 MG 1 tablet Orally ever y 6 hrs PSSP Active Enoxaparin Sodium 60 MG/0.6ML as directed Subcutaneous twice daily; Duration: 5 days 09/05/2018 Unknown ProAir HFA 108 (90 Base) MCG/ACT 2 puffs as needed Inhalation every 6 hrs; Duration: 30 days Active Anoro Ellipta 62.5-25 MCG/INH 1 puff Inhalation Once a day Unknown Pepto-Bismol As needed Unknown Metoprolol Tartrate 25 MG 1 tablet with food Orally Twice a day; Duration: 90 Unknown dilTIAZem HCl 120 MG TAKE [address] [facility] TWICE DAILY DIRECTED; Duration: 54 Active Lovenox 60 MG/0.6ML 60 mg Injection daily; Duration: 5 days take it every day in the morning subcutaneous. Do not take on the day of procedure 08/11/2023 Not-Taking Cardizem CD 240 MG 1 capsule Orally Onc e a day Active Azithromycin 250 MG 1 tablet Orally 2 tablets on the first day, then 1 tablet daily; Duration: 5 days 04/28/2023 Not-Taking ProAir RespiClick 108 (90 Base) MCG/ACT 1-2 puff as needed Inhalation every 4 hrs; Duration: 30 days Active Warfarin Sodium 2.5 MG TAKE 1 TABLET BY MOUTH EVERY DAY Once a day; Duration: 90 days Active Sertraline HCl 25 MG TAKE 2 TABLETS BY MOUTH EVERY DAY; Duration: 30 days Active Dicyclomine HCl 10 MG 1-2 capsules Orall y every 4-6 hours Unknown Megestrol Acetate 40 MG 1 tablet Orally Once a day; Duration: 30 days 02/24/2023 Unknown Mesalamine 800 MG [...] Active predniSONE 20 MG as directed Orally Once a day; Duration: 30 days 01/07/2021 Unknown Trelegy Ellipta 100-62.5-25 MCG/INH 1 puff Inhalation Once a day Active Zofran 4 MG 1 tablet Orally bid as needed; Duration: 14 days 05/17/2019 Unknown Carvedilol 3.125 MG 1 tablet with food Orally Twice a day; Duration: 30 days Active Centrum Silver - as directed Orally o ne daily Active Immunizations Vaccine Route Administration Date Status Comme [...] Risk Notes Problem Malignant tumor of lung (960680667) Malignant neoplasm of unspecified part of unspecified bronchus or lung (C34.90) Active confirmed Problem 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 Problem Generalized anxiety disorder (31053515) Generalized anxiety disorder (F41.1) Active confirmed Problem Atrial fibrillation (40065639) Unspecified atrial fibrillation (I48.91) Active confirmed Problem Cerebral infarction (722847887) Cerebral infarction, unspecified (I63.9) Active confirmed Problem Occlusion and stenosis of multiple and bilateral cerebral arteries (470357875) Occlusion and stenosis of bilateral carotid arteries (I65.23) Active confirmed Problem Chronic obstructive pulmonary disease (62367750) Chronic obstructive pulmonary disease, unspecified (J44.9) Active confirmed Problem Chronic respiratory failure (63082321) Chronic respiratory failure with hypoxia (J96.11) Active confirmed Problem Localized infection of skin AND/OR subcutaneous tissue (340658541) Local infection of the skin and subcutaneous tissue, unspecified (L08.9) Active confirmed Problem Cervical radiculopathy (89540592) Radiculopathy, cervical region (M54.12) Active confirmed Problem Muscle weakness (02132167) Muscle weakness (generalized) (M62.81) Active confirmed Problem Solitary pulmonary nodule (843879050) Solitary pulmonary nodule (R91.1) Active confirmed Problem History of excision of intestinal structure (268752302) Acquired absence of other specified parts of digestive tract (Z90.49) Active confirmed Problem Abdominal aortic aneurysm without rupture (20320982) Abdominal aortic aneurysm, without rupture (I71.4) Active confirmed Problem Essential hypertension (57361598) Essential (primary) hypertension (I10) Active confirmed Problem Intestinal obstruction (20912297) Unspecified intestinal obstruction, unspecified as to partial versus complete obstruction (K56.609) Active confirmed Problem Atrial fibrillation (35667690) Atrial fibrillation (I48.91) Active confirmed Problem History of disease caused by Severe acute respiratory syndrome coronavirus 2 (situation) (8296111317222723 05) Personal history of COVID-19 (Z86.16) Active confirmed Vital Signs Heart Rate 70 /min 11/14/2024 Temperature 97.2 degrees Fahrenheit 11/14/2024 Blood pressure diastolic 74 mm Hg 11/14/2024 Oximetry 97 % 11/14/2024 Height 65 in 11/14/2024 Blood pressure systolic 120 mm Hg 11/14/2024 Weight 95.2 lbs 11/14/2024 BMI 15.84 kg/m2 11/14/2024 Encounters Encounter Location Date Provider Diagnosis [address] [place] [address] 01/08/2024 CYN FAJARDO Essential (primary) hypertension I10 ; Encounter for general adult medical examination without abnormal findings Z00.00 ; Chronic obstructive pulmonary disease, unspecified J44.9 ; Malignant neoplasm of unspecified part of unspecified bronchus or lung C34.90 ; Unspecified atrial fibrillation I48.91 and Impaired fasting glucose R73.[address] [place] [address] 06/04/2024 Olga Sarabia Person consulting fo r explanation of examination or test findings Z71.[address] [place] [address] 07/25/2024 Olga Sarabia Pre-operative examination Z01.818 and Impaired fasting glucose R73.[address] [place] [address] 11/14/2024 CYN FAJARDO Abnormal weight loss R63.4 ; Unspecified atrial fibrillation I48.91 ; Malignant neoplasm of unspecified part of unspecified bronchus or lung C34.90 and Essential (primary) hypertension I10 [address] [place] [address] 02/27/[address] [place] [address] 04/01/[address] [place] [address] 04/25/[address] [place] [address] 05/15/2024 [facility] [address] [place] [address] 05/23/2024 [facility] [address] [place] [address] 05/23/2024 [facility] [address] [place] [address] 05/29/2024 [facility] [address] [facility] [place] [address] 06/05/2024 [facility] [address] [facility] [place] [address] 06/06/2024 [facility] [address] [facility] [place] [address] 07/10/2024 [facility] [address] [facility] [place] [address] 07/16/2024 [facility] [place] [address] [facility] [place] [address] 07/25/2024 [facility] [address] [facility] [place] [address] 09/03/2024 [facility] [address] [facility] [place] [address] 09/19/2024 [facility] [address] [facility] [place] [address] 10/14/2024 [facility] [address] [place] [address] 10/14/2024 [facility] [address] [place] [place] [address] 11/15/2024 [facility] [address] [facility] [place] [address] 12/20/2024 ADDISONANEUDY FAJARDO [facility] [address] [place] [address] 12/25/2024 CYN FAJARDO Assessments Encounter Date Diagnosis (ICD Code) Assessment Notes Treatment Notes Treatment Clinical Notes Section Notes 06/04/2024 Person consulting for explanation of examination [...] the patient but was available upon request 11/14/2024 Abnormal weight loss (ICD-10 - R63.4) Mr. Angeles is a 74-year-old gentleman with hypertension, hyperlipidemia, COPD, low testosterone, AAA, cervical radiculopathy, atrial fibrillation and status post lung cancer and resection of the right upper lobe here for follow-up. Weight loss. Differential diagnosis is deconditioning secondary to lack of exercise, loss of muscle mass and bone mass and history of lung cancer. He had extensive workup done which is negative and he does not have any systemic or constitutional symptoms. Advised to increase calorie intake and he can also use boost. Appropriate hydration and increase physical activity as tolerated. He is interested to get a second opinion for weight loss at [facility] and he will talk to his ladle filler who would give her a referral Atrial fibrillation. He is rate controlled and he is in normal sinus rhythm and he is on warfarin. Hypertension. Blood pressure well controlled on carvedilol 12.5 mg twice a day and he is also on diltiazem 120 mg daily. Low sodium diet recommended Hyperlipidemia. Continue atorvastatin 40 mg daily. Generalized anxiety disorder/depression. Continue sertraline 25 mg daily Status post lung cancer and right lobectomy/COPD. He is stable at this point and he is on Treligy , updrafts and albuterol inhaler as needed. He also follows up with Dr. Chi at [facility]. Screening blood work before next appointment. 07/25/2024 Impaired fasting glucose (ICD-10 - R73.01) Mr. Angeles is a 74-year-old gentleman with hypertension, hyperlipidemia, COPD, low testosterone, AAA, cervical radiculopathy, atrial fibrillation and status post lung cancer and resection of the right upper lobe here for pre-op cataract surgery BL, on August 05/2025 with [facility] with Dr. Robledo. Plan as follows: [...] he does follow with Coumadin clinic at [facility]. Advised patient to check with [...] cataract surgery BL, on August 05/2025 with [facility] with Dr. Robledo. Plan as follows: [...] he does follow with Coumadin clinic at [facility]. Advised patient to check with [...] patient but was available upon request 01/08/2024 Encounter for general adult medical examination [...] his inhalers as needed. He sees Dr. Jhavrei. Hypertension. His blood pressure was running high [...] stone. Status post lithotripsy by urologist at [facility]. His hematuria has improved Impaired fasting glucose. Dietary restrictions, regimental exercise and weight loss advised. check A1c. Eye screening. He sees his parking enforcement specialist regularly. Dental screening. He sees dentist regularly. Colon cancer screening. He had his colonoscopy done every 4 years. Immunizations. He is up-to-date on his TDAP and pneumonia vaccinations. Blood work reviewed with patient and questions answered. Screening blood work before next appointment. General health concerns discussed with patient. Scribe services used to formulate this note under HIPAA compliance and under [place] law mandated for scribe services. Patient aware [...] stone. Status post lithotripsy by urologist at [facility]. His hematuria has improved Impaired fasting glucose. Dietary restrictions, regimental exercise and weight loss advised. check A1c. Eye screening. He sees his parking enforcement specialist regularly. Dental screening. He sees dentist regularly. Colon cancer screening. He had his colonoscopy done every 4 years. Immunizations. He is up-to-date on his TDAP and pneumonia vaccinations. Blood work reviewed with patient and questions answered. Screening blood work before next appointment. General health concerns discussed with patient. Scribe services used to formulate this note under HIPAA compliance and under [place] law mandated for scribe services. Patient aware [...] stone. Status post lithotripsy by urologist at [facility]. His hematuria has improved Impaired fasting glucose. Dietary restrictions, regimental exercise and weight loss advised. check A1c. Eye screening. He sees his parking enforcement specialist regularly. Dental screening. He sees dentist regularly. Colon cancer screening. He had his colonoscopy done every 4 years. Immunizations. He is up-to-date on his TDAP and pneumonia vaccinations. Blood work reviewed with patient and questions answered. Screening blood work before next appointment. General health concerns discussed with patient. Scribe services used to formulate this note under HIPAA compliance and under [place] law mandated for scribe services. Patient aware of service. Verbal consent and written consent taken from the patient. Patient understands and verbalizes understanding of the scribes services and all questions answered regarding scribes services. Patient agrees to use of scribes services. 11/14/2024 Unspecified atrial fibrillation (ICD-10 - I48.91) Mr. Angeles is a 74-year-old gentleman with hypertension, hyperlipidemia, COPD, low testosterone, AAA, cervical radiculopathy, atrial fibrillation and status post lung cancer and resection of the right upper lobe here for follow-up. Weight loss. Differential diagnosis is deconditioning secondary to lack of exercise, loss of muscle mass and bone mass and history of lung cancer. He had extensive workup done which is negative and he does not have any systemic or constitutional symptoms. Advised to increase calorie intake and he can also use boost. Appropriate hydration and increase physical activity as tolerated. He is interested to get a second opinion for weight loss at [facility] and he will talk to his ladle filler who would give her a referral Atrial fibrillation. He is rate controlled and he is in normal sinus rhythm and he is on warfarin. Hypertension. Blood pressure well controlled on carvedilol 12.5 mg twice a day and he is also on diltiazem 120 mg daily. Low sodium diet recommended Hyperlipidemia. Continue atorvastatin 40 mg daily. Generalized anxiety disorder/depression. Continue sertraline 25 mg daily Status post lung cancer and right lobectomy/COPD. He is stable at this point and he is on Treligy , updrafts and albuterol inhaler as needed. He also follows up with Dr. Chi at [facility]. Screening blood work before next appointment. 11/14/2024 Malignant neoplasm of unspecified part of unspecified bronchus or lung (ICD-10 - C34.90) Mr. Angeles is a 74-year-old gentleman with hypertension, hyperlipidemia, COPD, low testosterone, AAA, cervical radiculopathy, atrial fibrillation and status post lung cancer and resection of the right upper lobe here for follow-up. Weight loss. Differential diagnosis is deconditioning secondary to lack of exercise, loss of muscle mass and bone mass and history of lung cancer. He had extensive workup done which is negative and he does not have any systemic or constitutional symptoms. Advised to increase calorie intake and he can also use boost. Appropriate hydration and increase physical activity as tolerated. He is interested to get a second opinion for weight loss at [facility] and he will talk to his ladle filler who would give her a referral Atrial fibrillation. He is rate controlled and he is in normal sinus rhythm and he is on warfarin. Hypertension. Blood pressure well controlled on carvedilol 12.5 mg twice a day and he is also on diltiazem 120 mg daily. Low sodium diet recommended Hyperlipidemia. Continue atorvastatin 40 mg daily. Generalized anxiety disorder/depression. Continue sertraline 25 mg daily Status post lung cancer and right lobectomy/COPD. He is stable at this point and he is on Treligy , updrafts and albuterol inhaler as needed. He also follows up with Dr. Chi at [facility]. Screening blood work before next appointment. 01/08/2024 Malignant neoplasm of unspecified part of [...] stone. Status post lithotripsy by urologist at [facility]. His hematuria has improved Impaired fasting glucose. Dietary restrictions, regimental exercise and weight loss advised. check A1c. Eye screening. He sees his parking enforcement specialist regularly. Dental screening. He sees dentist regularly. Colon cancer screening. He had his colonoscopy done every 4 years. Immunizations. He is up-to-date on his TDAP and pneumonia vaccinations. Blood work reviewed with patient and questions answered. Screening blood work before next appointment. General health concerns discussed with patient. Scribe services used to formulate this note under HIPAA compliance and under [place] law mandated for scribe services. Patient aware [...] stone. Status post lithotripsy by urologist at [facility]. His hematuria has improved Impaired fasting glucose. Dietary restrictions, regimental exercise and weight loss advised. check A1c. Eye screening. He sees his parking enforcement specialist regularly. Dental screening. He sees dentist regularly. Colon cancer screening. He had his colonoscopy done every 4 years. Immunizations. He is up-to-date on his TDAP and pneumonia vaccinations. Blood work reviewed with patient and questions answered. Screening blood work before next appointment. General health concerns discussed with patient. Scribe services used to formulate this note under HIPAA compliance and under [place] law mandated for scribe services. Patient aware of service. Verbal consent and written consent taken from the patient. Patient understands and verbalizes understanding of the scribes services and all questions answered regarding scribes services. Patient agrees to use of scribes services. 11/14/2024 Essential (primary) hypertension (ICD-10 - I10) Mr. Angeles is a 74-year-old gentleman with hypertension, hyperlipidemia, COPD, low testosterone, AAA, cervical radiculopathy, atrial fibrillation and status post lung cancer and resection of the right upper lobe here for follow-up. Weight loss. Differential diagnosis is deconditioning secondary to lack of exercise, loss of muscle mass and bone mass and history of lung cancer. He had extensive workup done which is negative and he does not have any systemic or constitutional symptoms. Advised to increase calorie intake and he can also use boost. Appropriate hydration and increase physical activity as tolerated. He is interested to get a second opinion for weight loss at [facility] and he will talk to his ladle filler who would give her a referral Atrial fibrillation. He is rate controlled and he is in normal sinus rhythm and he is on warfarin. Hypertension. Blood pressure well controlled on carvedilol 12.5 mg twice a day and he is also on diltiazem 120 mg daily. Low sodium diet recommended Hyperlipidemia. Continue atorvastatin 40 mg daily. Generalized anxiety disorder/depression. Continue sertraline 25 mg daily Status post lung cancer and right lobectomy/COPD. He is stable at this point and he is on Treligy , updrafts and albuterol inhaler as needed. He also follows up with Dr. Chi at [facility]. Screening blood work before next appointment. 01/08/2024 Impaired fasting glucose (ICD-10 - R73.01) [...] stone. Status post lithotripsy by urologist at [facility]. His hematuria has improved Impaired fasting glucose. Dietary restrictions, regimental exercise and weight loss advised. check A1c. Eye screening. He sees his parking enforcement specialist regularly. Dental screening. He sees dentist regularly. Colon cancer screening. He had his colonoscopy done every 4 years. Immunizations. He is up-to-date on his TDAP and pneumonia vaccinations. Blood work reviewed with patient and questions answered. Screening blood work before next appointment. General health concerns discussed with patient. Scribe services used to formulate this note under HIPAA compliance and under [place] law mandated for scribe services. Patient aware [...] 23 LIPID PANEL 11/23/2022 MICROALBUMIN, URINE 11/23/2022 Next Appt Details Provider Name:Olga saldivar, 02/12/2025 02:30:00 PM, [address] [place] [address], [phone], Insurance Providers Payer Name Payer Address Payer Phone Subscriber Number Group Number Insured Name Patient Relationship to Insured Coverage Start Date Coverage End Date [employer] Preferred [address] [place] [phone] [id number] Dirk Pedro i Self - patient is the insured 2 Medical (General) History Medical History History ICD Code Essential (primary) hypertension I10 Hyperlipidemia, unspecified E78.5 COPD [address] sees Dr. Jhaveri Low testosterone levels and he sees Dr. 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 He is currently on Coumadin monitored by Coumadin clinic at [facility]. Pulmonary nodule right lung. Positive on PET scan and planning to have resection by at [facility] Small bowel obstruction and status post resection and he sees Dr. Barr. Cervical radiculopathy and h e follows with [facility] spine and sports and is on narcotics Smokes marijuana for appetite A Fib see Dr Bazzi Personal history of COVID-19 S/P Pasturella infection Surgical History Surgery Date(Month/Year) Small bowel obstruction 06/26/16 cervical spine 09/17/13 Right upper lobectomy at [facility] 09/2018 Hospitalization History Reason Date(Month/Year) right lobectomy 10/13/18
--- OUTSIDE RECORDS SUMMARY | 2024-12-25 17:48 | XMS_ITS | Patient Health Record ---
Author Organization [facility] Address [address] [place] [address] Care Team Providers Care General Expeditor Name Role Phone SCOTTY CYN Primary Care Provider Sarwat Lopez [phone] Allergies Allergen (clinical drug ingredient) Drug/Non Drug [...] 5 MG Oral for 90 Active Creon 02031 UNIT take 1 15-30 minutes before each [...] Problem Screening for malignant neoplasm of colon (708250058) Encounter for screening for malignant neoplasm of colon (Z12.11) Active confirmed Problem Diarrhea (49873796) Diarrhea (R19.7) Active confirmed Problem 916417127 Weight loss (R63.4) Active confirmed Problem Irritable bowel syndrome with diarrhea (245973796) Irritable bowel syndrome with diarrhea (K58.0) Active confirmed Problem 771249423 Flatulence (R14.3) Active confirmed Problem 30984516 Constipation, unspecified constipation type (K59.00) Active confirmed Problem 36603369 Abdominal cramps (R10.9) Active confirmed Problem 66492023 Other ulcerative colitis without complication (K51.80) Active confirmed Problem 314184313 Anemia, unspecified type (D64.9) Active confirmed Problem Ulcerative colitis (08423978) Ulcerative colitis (K51.90) Active confirmed Problem 14797917 Diarrhea, unspecified type (R19.7) Active confirmed Problem 060313028 Chronic pancreatitis, unspecified pancreatitis type (K86.1) Active confirmed Problem Clostridium difficile diarrhea (6705343931887) Clostridium difficile diarrhea (A04.72) Active confirmed Problem Clostridioides difficile infection (831749648) Clostridioides difficile infection (A49.8) Active confirmed Plan [...] Date [employer] PREF[employer]ED [address] [facility] [place] [address] [id number] LEIGHTON MELGAR Self - patient is the insured Medical (General) History Medical History History ICD Code Most recent colonoscopy was 03/10/2010--no active colitis, no dysplasia on biopsies, no polyps Stroke-causing some partial loss of visi on in the left eye 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 Ramos Hyperlipidemia Ulcerative colitis dating back to the [place],DM,renal disease Chronic back pain--spinal stenosis AAA--approx 3 cm-followed with periodic U/S RUL Lung cancer with surgery as below C.diff infection 04/2020 Colonoscopy 07/2020--normal e xcept for 1 small tubular adenoma--no colitis, no dysplasia Neg. ETT in 05/2021 Surgical History Surgery Date(Month/Year) Perirectal abscess surgery Neck surgery for 3 discs--Dr. 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 Hampton at [facility] 06/2016 RUL lobectomy for cancer-Dr. Newman-no chemo/XRT- told that he is cancer-free 04/2018
--- OUTSIDE RECORDS SUMMARY | 2024-12-25 17:48 | XMS_ITS | Encounter Summary ---
Author Organization [facility] Address [address] [place] [address] Care Team Providers Care Aircraft Structural Repair Mechanic Name Role Phone Timoteo Escamilla MD Primary Care Provider [phone] Encounter Details Date Type Department Care Team (Late st Contact Info) Description 06/27/2024 Lab Requisition [facility] - Main Lab [address] [facility] [place] [address] Khurram Zambrnao PA [address] [place] [phone] Gross hematuria Social History Tobacco Use Types [...] Description 01/01/2025 3:00 PM EDT Office Visit [facility] Hematology Oncology [address] [place] [address] Casey Llanes MD [address] [place] [address] documented as of this encounter Procedures Procedure Name Priority Date/Time Associated Diagnosis Comments AP OUTSIDE CONSULT Routine 06/25/2024 12 :00 AM EST Gross hematuria documented in this encounter Results * Anatomic pathology outside consult (06/25/2024 12:00 AM EST) Final Diagnosis A. Urine, Voided, ([id number]): Negative for high grade urothelial carcinoma. Results [...] CENTER LAB Gross Description A. Urine, Voided, ([id number]): Received one ThinPrep slide for cytology and one ThinPrep slide for UroVysion FISH 07/08/2024 4:42 PM EDT [facility] Disclaimer Unless otherwise specified, all tissue is 10% NB formalin fixed and paraffin embedded. Technical pathology services provided by [facility] Urology at [address] [address] (CLIA #[id number]/Amy Stringer MD, Jewel Lathe Operator) 07/08/2024 4:42 PM EDT [facility] Tissue Urine specimen from urethra / Unknown 06/25/2024 06/27/2024 4:00 PM EST us Khurram [facility] PATHOLOGY ORDERAB LES Final Result [facility] [address] [place] [address], documented in this encounter Visit Diagnoses Diagnosis Gross hematuria documented in this encounter Care Teams Aircraft Structural Repair Mechanic Relationship Specialty Start Date End Date Timoteo Escamilla MD [address] [place] [address] PCP - General 02/23/22 documented as of this encounter
--- OUTSIDE RECORDS SUMMARY | 2024-12-25 17:48 | XMS_ITS | Clinical Summary ---
Author Organization [facility] Address [address] [place] [address] Phone Care Team Providers Care Belt Puncher Name Role Phone Timoteo Escamilla MD Primary Care Provider [phone] Allergies Active Allergy Reactions Criticality Noted Date [...] Squamous cell carcinoma of r ight lung (CMS/[facility] V24, CMS/[facility] V28) 04/23/2022 Encounters Date Type Department Care Team Description 12/09/2024 Telephone [facility] Cardiology [facility] [address] [place] [address] Timoteo Escamilla MD 11/18/2024 Telephone [facility] Dr [address] [facility] [address] [place] [address] Timoteo Escamilla MD from Last 3 Months Immunizations Name Administration Dates Next Due [facility] SARS-CoV-2 COVID-19, mRNA, LNP-S, preservative free 08/23/2020,08/01/2020 [...] Description 01/01/2025 3:00 PM EDT Office Visit [facility] Hematology Oncology [address] [place] [address] Casey Llanes MD [address] [place] [address] Health Maintenance Due Date Last Done Comments Zoster Vaccines (1 of 2) 02/15/1969 COVID-19 Vaccine (3 - Pfizer risk series) 09/20/2020 08/23/2020, 08/01/2020 Cholesterol Screening (Lipid Panel) 03/27/2022 Colorectal Cancer Screening: Colonoscopy 03/27/2022 Falls Risk Assessment 03/27/2022 Hepatitis C Screening 03/27/2022 Medicare Annual Wellness Visit 03/27/2022 Social Influencers of Health Screening 03/27/2022 DTaP,Tdap,and Td Vaccines (2 - Td or Tdap) 08/23/2023 08/22/2013 RSV Immunization Adult Patients (1 - 1-dose 75+ series) 02/15/2024 Depression Screening 04/24/2024 Influenza Vaccine (#1) 2024 , 03/23/2022, 01/23/2020, Additional history exists Pneumococcal Vaccine: [...] topic Insurance [employer] Care Teams Belt Puncher Relationship Specialty Start Date End Date Timoteo Escamilla MD [address] [place] [address] PCP - General 02/23/22
--- OUTSIDE RECORDS SUMMARY | 2024-12-25 17:48 | XMS_ITS | Clinical Summary ---
Author Organization [facility] Address [address] [place] [address] Care Team Providers Care Dipper And Drier Name Role Phone Timoteo Escamilla MD Primary Care Provider [phone] Allergies Active Allergy Reactions Criticality Noted Date [...] age to complete this topic Care Teams Dipper And Drier Relationship Specialty Start Date End Date Timoteo Escamilla MD [address] [id number] PCP - General Internal Medicine 02/23/22
== END 2024-12-25 15:59 | disposition home or self-care (01) ==
LOC: HO.XRAY 15:58
PROVIDERS: PCP Hospitalist; Visit Provider Nurse Practitioner Women's Health
DX: M54.51 Vertebrogenic low back pain (principal)
CPT/HCPCS: 72110

== ENCOUNTER → 2024-12-25 16:30 | Outpatient (BNV) | payer MEDICARE, SELFPAY | PROVIDERS: PCP Hospitalist; Visit Provider Radiology Diagnostic Radiology | DX: S32.010A Wedge compression fracture of first lumbar vertebra, initial encounter for closed fracture (principal) | CPT/HCPCS: 72110 ==

== ENCOUNTER 2024-12-30 14:57 | Outpatient (AMB) | payer MEDICARE, SELFPAY ==
--- OUTSIDE RECORDS SUMMARY | 2024-06-25 11:15 | XMS_ITS ---
Author Organization [facility] Address 294 [facility] [address] [place] [address] Care Team Providers Care Front Office Associate Name Role Phone CYN FAJARDO Primary Care Provider Olga Sarabia Unavailable [phone] Encounters Encounter Location Date Provider Diagnosis [facility] 294 [facility] [address] [place] [address] 06/25/2024 Olga Sarabia Plan Of Treatment Next Appt Details Provider Name:Olga Aaron janna, 02/12/2025 02:30:00 PM, 294 [facility] [address], [place], [address], Progress Notes * Dirk MOMINDOB: [birth year] (74 yo M)Acc No.[id number]:06/25/2024 Progress Notes Patient: Dirk LOVING Appointment Provider: Tima Sarabia :1950 A ge:74 Y S ex:Male Date:06/25/2024 Phone: Address:[address] [place] [address] [id number] Pcp:CYN FAJARDO Subjective: * Chief Complaints: * * Medical History: Objective: * Vitals: Assessment: Plan: * Treatment: * Images: * Electronic signature of Marty Sarabia PA-C on 12/30/2024 at 06:11 PM EDT Sign off status: Pending * Appointment Provider: Tima Sarabia Date: 0 06/25/2024 Generated for Radha carbajal/Lalo/eTransmitting on: 0 12/30/2024 06:11 PM EDT
[2024-12-30 15:05] LABS: Prothrombin Time Whole Bld POC 29.9 sec (11.1-13.5); ~PT, ~INR - Anti Coag Clinic 2.5 (0.9-1.1)
--- NOTE | 2024-12-30 15:17 | MHC.OFFVISCO ---
Intake Intake Visit Reasons: Anticoagulation Allergies bupropion (From Wellbutrin) Allergy (Intermediate, Verified 12/30/24 14:59) Nausea levofloxacin (From LEVAQUIN) Allergy (Intermediate, Verified 12/30/24 14:59) GI UPSET/ WEIGHT LOSS, anaphylaxis sulfamethoxazole (From Bactrim) Allergy (Intermediate, Verified 12/30/24 14:59) rash trimethoprim (From Bactrim) Allergy (Intermediate, Verified 12/30/24 14:59) rash ibuprofen Allergy (Mild, Verified 12/30/24 14:59) GI DISTRESS Medication List - Last Reconciled 12/30/24 by Mira Hurt, RN acetaminophen 500 mg PO Q6H PRN albuterol sulfate 90 mcg/actuation 2 puffs PO Q6H PRN albuterol sulfate 2.5 mg (3 mL) continuous nebulization QID PRN atorvastatin 20 mg PO DAILY calcium citrate 500 mg (2 x 250 mg calcium) PO BID 90 days carvedilol 3.125 mg PO BID cholecalciferol (vitamin D3) 100 mcg (2 x 50 mcg (2,000 unit)) PO DAILY 90 days diltiazem HCl 120 mg PO BID doxycycline hyclate 100 mg PO BID [ENSURE / BOOST PO DAILY] ktqflosljhf-eywxixajg-nexgkemm 100-62.5-25 mcg (Trelegy Ellipta) 1 inh inhalation DAILY 30 days Lactobacillus rhamnosus GG (Culturelle) 1 cap PO DAILY vlodrleegxdj-cgvoptwo-nfvvlb 1 tab PO DAILY nebulizers As directed oxycodone 10 mg PO Q6H PRN oxycodone ER (OxyContin) 10 mg PO Q12H Oxygen Home Use As directed sertraline 25 mg PO BEDTIME simethicone (Gas Relief (simethicone)) 160 mg (2 x 80 mg) PO TID PRN 30 days sodium chloride 7% 4 mL inhalation BID theophylline ER 400 mg PO DAILY warfarin 2.5 mg See Protocol PO DAILY Held on 07/20/23. Instructions: Resume on 07/21/23. if coughing blood needs to continue holding coumadin and call the office Nursing Note INR: 2.5 in therapeutic range of 2-3 Medications and supplements reviewed No changes in health, diet, medications, or supplements, Denies any signs and symptoms of bleeding or bruising or clotting. Bleeding, bruising, clotting discussed Nutritional guidance given Dose: keep same dose of 2.5mg X 5 days and 3.75mg X 2 days (Mon & Th) F/U INR: 4 weeks Patient verbalizes understanding of instructions given Anti-Coag Initial Assessment Social Hx Patient Tobacco Use Status: Former Tobacco user Tobacco use type: Cigarette Alcohol intake frequency: former alcohol drinker Coding Level of Care Code Est Patient Level 1 Diagnoses Current use of anticoagulant therapy Z79.01 Assessment & Plan Assessment & Plan (1) Current use of anticoagulant therapy: Code(s): Z79.01 - FDC (current) use of 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
--- OUTSIDE RECORDS SUMMARY | 2024-12-30 18:11 | XMS_ITS | Patient Health Record ---
Author Organization [facility] Address [address] [place] [address] Care Team Providers Care Manager Domestic Name Role Phone Ming Ahmet Primary Care Provider Unavailjonathan martínez Nohelia Dickinson Unavailable [phone] Allergies Allergen (clinical drug ingredient) Drug/Non Drug [...] Treatment Pending Test Test Name Order Date [id number] Destruction, -06/30/2015 [id number] Destruction, -08/03/2015 Insurance Providers Payer Name Payer Address Payer Phone Subscriber Number Group Number Insured Name Patient Relationship to Insured Coverage Start Date Coverage End Date [employer] Preferred [address] [place] [address] [phone] [id number] Dirk Pedro i Self - patient is the insured Medical (General) History Medical History History ICD Code Hypertension Stroke Measles Chicken pox Surgical History Surgery Date(Month/Year) cervical fusion 08/2012
--- OUTSIDE RECORDS SUMMARY | 2024-12-30 18:11 | XMS_ITS | Clinical Summary ---
Author Organization [facility] Address [address] [place] [address] Care Team Providers Care Wrapper Layer And Examiner Soft Work Name Role Phone Timoteo Escamilla MD Primary Care Provider [phone] Allergies Active Allergy Reactions Criticality Noted Date [...] age to complete this topic Care Teams Wrapper Layer And Examiner Soft Work Relationship Specialty Start Date End Date Timoteo Escamilla MD [address] [id number] PCP - General Internal Medicine 02/23/22
--- OUTSIDE RECORDS SUMMARY | 2024-12-30 18:11 | XMS_ITS | Clinical Summary ---
Author Organization [facility] Address [address] [place] [address] Phone Care Team Providers Care Nuisance Wildlife Control Operator Name Role Phone Timoteo Escamilla MD Primary Care Provider [phone] Allergies Active Allergy Reactions Criticality Noted Date [...] Squamous cell carcinoma of r ight lung (CMS/[facility] V24, CMS/[facility] V28) 04/23/2022 Encounters Date Type Department Care Team Description 12/09/2024 Telephone [facility] Cardiology [facility] [address] [place] [address] Timoteo Escamilla MD 11/18/2024 Telephone [facility] Dr [address] [facility] [address] [place] [address] Timoteo Escamilla MD from Last 3 Months Immunizations Name Administration Dates Next Due [facility] SARS-CoV-2 COVID-19, mRNA, LNP-S, preservative free 08/23/2020,08/01/2020 [...] 01/01/2025 3:00 PM EDT Office Visit [facility] Hematology Oncology [address] [place] [address] Casey Llanes MD [address] [place] [address] Health Maintenance Due Date Last [...] topic Insurance [employer] Care Teams Nuisance Wildlife Control Operator Relationship Specialty Start Date End Date Timoteo Escamilla MD [address] [place] [address] PCP - General 02/23/22
--- OUTSIDE RECORDS SUMMARY | 2024-12-30 18:12 | XMS_ITS | Patient Health Record ---
Author Organization [facility] Address [address] [place] [address] Care Team Providers Care Civil Engineering Intern Name Role Phone SCOTTY CYN Primary Care Provider Sarwat Lopez [phone] Allergies Allergen (clinical drug ingredient) Drug/Non Drug [...] 5 MG Oral for 90 Active Creon 69439 UNIT take 1 15-30 minutes before each [...] Problem Screening for malignant neoplasm of colon (584524018) Encounter for screening for malignant neoplasm of colon (Z12.11) Active confirmed Problem Diarrhea (70677313) Diarrhea (R19.7) Active confirmed Problem 134527843 Weight loss (R63.4) Active confirmed Problem Irritable bowel syndrome with diarrhea (373899572) Irritable bowel syndrome with diarrhea (K58.0) Active confirmed Problem 786572518 Flatulence (R14.3) Active confirmed Problem 08186732 Constipation, unspecified constipation type (K59.00) Active confirmed Problem 43991704 Abdominal cramps (R10.9) Active confirmed Problem 47089031 Other ulcerative colitis without complication (K51.80) Active confirmed Problem 499451265 Anemia, unspecified type (D64.9) Active confirmed Problem Ulcerative colitis (06880204) Ulcerative colitis (K51.90) Active confirmed Problem 17823966 Diarrhea, unspecified type (R19.7) Active confirmed Problem 153501075 Chronic pancreatitis, unspecified pancreatitis type (K86.1) Active confirmed Problem Clostridium difficile diarrhea (7561699704337) Clostridium difficile diarrhea (A04.72) Active confirmed Problem Clostridioides difficile infection (179891483) Clostridioides difficile infection (A49.8) Active confirmed Plan [...] Date [employer] PREFERRED [address] [place] [address] [phone] [id number] LEIGHTON MELGAR Self - patient is the insured Medical (General) History Medical History History ICD Code Most recent colonoscopy was 03/10/2010--no active colitis, no dysplasia on biopsies, no polyps Stroke-causing some partial loss of visi on in the left eye 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 Ramos Hyperlipidemia Ulcerative colitis dating back to the [place],DM,renal disease Chronic back pain--spinal stenosis AAA--approx 3 cm-followed with periodic U/S RUL Lung cancer with surgery as below C.diff infection 04/2020 Colonoscopy 07/2020--normal e xcept for 1 small tubular adenoma--no colitis, no dysplasia Neg. ETT in 05/2021 Surgical History Surgery Date(Month/Year) Perirectal abscess surgery Neck surgery for 3 discs--Dr. 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 Hampton at [facility] 06/2016 RUL lobectomy for cancer-Dr. Newman-no chemo/XRT- told that he is cancer-free 04/2018
--- OUTSIDE RECORDS SUMMARY | 2024-12-30 18:12 | XMS_ITS | Patient Health Record ---
Author Organization [facility] Address [address] [place] [address] Care Team Providers Care Incising Machine Operator Name Role Phone CYN FAJARDO Primary Care Provider Rejijuan joseMiguel jacksonalvinned Unavailable [phone] Allergies Allergen (clinical drug ingredient) Drug/Non Drug Allergy documented on EMR Reaction Allergy Type Onset Date Status amoxicillin / clavulanate Augmentin hives Drug Allergy Active levofloxacin Levofloxacin anaphylaxis Drug Allergy Active Motrin Unknown Drug Allergy Active Wellbutrin Unknown Drug Allergy Active Results Component Value Reference Range Notes CULTURE URINE Reviewed date:06/26/2024 04:41:22 PM Interpretation: Performing Lab: Notes/Report: Culture, Urine No growth AP OUTSIDE CONSULT Reviewed date:07/08/2024 05:03:14 PM Interpretation: Performing Lab: Notes/Report: Gross hematuria R31.0 Urine Cytology/FISH (now) Urine Cytology/FISH (now) Final Diagnosis A. Urine, Voided, ([id number]): Negative for high grade urothelial carcinoma. Results of UroVysion fluorescence in situ hybridization (FISH) testing: Although FISH was performed, insufficient non-obscured hybridization signals are present for evaluation and interpretation. Gross Description A. Urine, Voided, ([id number]): Received one ThinPrep slide for cytology and one ThinPrep slide for UroVysion FISH Disclaimer Unless otherwise specified, all tissue is 10% NB formalin fixed and paraffin embedded. Technical pathology services provided by [facility] at [address] [place] [address] [address], [place] [address] (CLIA #[id number]/Rachel Stringer MD, Motors And Controls Tester) Clinical Information Gross hematuria R31.0 Hemoglobin [id number] Reviewed date:07/21/2024 09:01:25 AM Interpretation: Performing Lab:[facility] [place], [address] [place] [address], Phone - [phone], Director - Fabio Notes/Report: Hemoglobin A1c 5.7 4.8-5.6 % . Prediabetes: 5.7 - 6.4 Diabetes: >6.4 Glycemic control for adults with diabetes: <7.0 Lipid Panel-[id number] Reviewed date:07/21/2024 09:01:44 AM Interpretation: Performing Lab:[facility] [place], [address], [place], Phone - [phone], Director - Fabio Notes/Report: Cholesterol, Total 163 100-199 mg/dL Triglycerides 81 0-149 mg/dL HDL Cholesterol 62 >39 mg/dL VLDL Cholesterol Huan 15 5-40 mg/dL LDL Chol Calc (NIH) 86 0-99 mg/dL Comp. Metabolic Panel (14)-3 Reviewed date:07/21/2024 09:02:02 AM Interpretation: Performing Lab:[facility] [place], [address] [facility] [facility], [place], Phone - [phone], Director - Fabio Notes/Report: Glucose 106 70-99 [...] ALT (SGPT) 9 0-44 IU/L Albumin/Creatinine Ratio,Uri ne-[id number] Reviewed date:07/21/2024 09:02:08 AM Interpretation: Performing Lab:[facility] [place], [address], [place], Phone - [phone], Director - Fabio Notes/Report: Creatinine, Urine 81.3 Not Estab. mg/dL Albumin, Urine 10.6 Not Estab. ug/mL Alb/Creat Ratio 13 0-29 mg/g creat Normal: 0 - 29 Moderately increased: 30 - 300 Severely increased: >300 Reason For Referral Reason A Fib- Dr Mike solorio evaluate and treat Diagnosis 1 Atrial fibrillation (I48.91) Referral Organization 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 Problem Generalized anxiety disorder (64367032) Generalized anxiety disorder (F41.1) Active confirmed Problem Atrial fibrillation (51384568) Unspecified atrial fibrillation (I48.91) Active confirmed Problem Cerebral infarction (277372371) Cerebral infarction, unspecified (I63.9) Active confirmed Problem Occlusion and stenosis of multiple and bilateral cerebral arteries (126190318) Occlusion and stenosis of bilateral carotid arteries (I65.23) Active confirmed Problem Chronic obstructive pulmonary disease (85565079) Chronic obstructive pulmonary disease, unspecified (J44.9) Active confirmed Problem Chronic respiratory failure (31298977) Chronic respiratory failure with hypoxia (J96.11) Active confirmed Problem Localized infection of skin AND/OR subcutaneous tissue (855001208) Local infection of the skin and subcutaneous tissue, unspecified (L08.9) Active confirmed Problem Cervical radiculopathy (71910721) Radiculopathy, cervical region (M54.12) Active confirmed Problem Muscle weakness (98386163) Muscle weakness (generalized) (M62.81) Active confirmed Problem Solitary pulmonary nodule (568212586) Solitary pulmonary nodule (R91.1) Active confirmed Problem History of excision of intestinal structure (920642847) Acquired absence of other specified parts of digestive tract (Z90.49) Active confirmed Problem Abdominal aortic aneurysm without rupture (13964874) Abdominal aortic aneurysm, without rupture (I71.4) Active confirmed Problem Essential hypertension (31432955) Essential (primary) hypertension (I10) Active confirmed Problem Intestinal obstruction (08058049) Unspecified intestinal obstruction, unspecified as to partial versus complete obstruction (K56.609) Active confirmed Problem Atrial fibrillation (35172210) Atrial fibrillation (I48.91) Active confirmed Problem History of disease caused by Severe acute respiratory syndrome coronavirus 2 (situation) (5647777411167588 05) Personal history of COVID-19 (Z86.16) Active confirmed Vital Signs Heart Rate 70 /min 11/14/2024 Temperature 97.2 degrees Fahrenheit 11/14/2024 Blood pressure diastolic 74 mm Hg 11/14/2024 Oximetry 97 % 11/14/2024 Height 65 in 11/14/2024 Blood pressure systolic 120 mm Hg 11/14/2024 Weight 95.2 lbs 11/14/2024 BMI 15.84 kg/m2 11/14/2024 Encounters Encounter Location Date Provider Diagnosis [address] [place] [address] 01/08/2024 CYN FAJARDO Essential (primary) hypertension I10 ; Encounter for general adult medical examination without abnormal findings Z00.00 ; Chronic obstructive pulmonary disease, unspecified J44.9 ; Malignant neoplasm of unspecified part of unspecified bronchus or lung C34.90 ; Unspecified atrial fibrillation I48.91 and Impaired fasting glucose R73.[address] [place] [address] 06/04/2024 Olga Sarabia Person consulting fo r explanation of examination or test findings Z71.[address] [place] [address] 07/25/2024 Olga Sarabia Pre-operative examination Z01.818 and Impaired fasting glucose R73.[address] [place] [address] 11/14/2024 CYN FJAARDO Abnormal weight loss R63.4 ; Unspecified atrial fibrillation I48.91 ; Malignant neoplasm of unspecified part of unspecified bronchus or lung C34.90 and Essential (primary) hypertension I10 [address] [place] [address] 02/27/[address] [place] [address] 04/01/[address] [place] [address] 04/25/[address] [place] [address] 05/15/2024 [facility] [address] [place] [address] 05/23/2024 [facility] [address] [place] [address] 05/23/2024 [facility] [address] [place] [address] 05/29/2024 [facility] [address] [facility] [place] [address] 06/05/2024 [facility] [address] [facility] [place] [address] 06/06/2024 [facility] [address] [facility] [place] [address] 07/10/2024 [facility] [address] [facility] [place] [address] 07/16/2024 [facility] [address] [facility] [place] [address] 07/25/2024 [facility] [address] [facility] [place] [address] 09/03/2024 [facility] [address] [facility] [place] [address] 09/19/2024 [facility] [address] [facility] [place] [address] 10/14/2024 [facility] [address] [place] [address] 10/14/2024 [facility] [address] [facility] [place] [address] 11/15/2024 [facility] [address] [facility] [place] [address] 12/20/2024 ADDISON LEIRekha [facility] [address] [place] [address] 12/25/2024 CYN FAJARDO Assessments Encounter Date Diagnosis [...] cataract surgery BL, on August 05/2025 with [facility] eye care with Dr. Robledo. [...] he does follow with Coumadin clinic at [facility]. Advised patient to check with [...] cataract surgery BL, on August 05/2025 with [facility] eye care with Dr. Robledo. [...] he does follow with Coumadin clinic at [facility]. Advised patient to check with [...] a second opinion for weight loss at [facility] and he will talk to his online activist who would give her a referral Atrial [...] also follows up with Dr. Chi at [facility]. Screening blood work before next appointment. 01/08/2024 Encounter for general adult medical examination [...] stone. Status post lithotripsy by urologist at [facility]. His hematuria has improved Impaired fasting glucose. Dietary restrictions, regimental exercise and weight loss advised. check A1c. Eye screening. He sees his supervisor transferring and boxing regularly. Dental screening. He sees dentist regularly. Colon cancer screening. He had his colonoscopy done every 4 years. Immunizations. He is up-to-date on his TDAP and pneumonia vaccinations. Blood work reviewed with patient and questions answered. Screening blood work before next appointment. General health concerns discussed with patient. Scribe services used to formulate this note under HIPAA compliance and under [place] law mandated for scribe services. Patient aware [...] stone. Status post lithotripsy by urologist at [facility]. His hematuria has improved Impaired fasting glucose. Dietary restrictions, regimental exercise and weight loss advised. check A1c. Eye screening. He sees his supervisor transferring and boxing regularly. Dental screening. He sees dentist regularly. Colon cancer screening. He had his colonoscopy done every 4 years. Immunizations. He is up-to-date on his TDAP and pneumonia vaccinations. Blood work reviewed with patient and questions answered. Screening blood work before next appointment. General health concerns discussed with patient. Scribe services used to formulate this note under HIPAA compliance and under [place] law mandated for scribe services. Patient aware [...] stone. Status post lithotripsy by urologist at [facility]. His hematuria has improved Impaired fasting glucose. Dietary restrictions, regimental exercise and weight loss advised. check A1c. Eye screening. He sees his supervisor transferring and boxing regularly. Dental screening. He sees dentist regularly. Colon cancer screening. He had his colonoscopy done every 4 years. Immunizations. He is up-to-date on his TDAP and pneumonia vaccinations. Blood work reviewed with patient and questions answered. Screening blood work before next appointment. General health concerns discussed with patient. Scribe services used to formulate this note under HIPAA compliance and under [place] law mandated for scribe services. Patient aware [...] a second opinion for weight loss at [facility] and he will talk to his online activist who would give her a referral Atrial [...] also follows up with Dr. Chi at [facility]. Screening blood work before next appointment. 11/14/2024 [...] a second opinion for weight loss at [facility] and he will talk to his online activist who would give her a referral Atrial [...] also follows up with Dr. Chi at [facility]. Screening blood work before next appointment. 01/08/2024 [...] stone. Status post lithotripsy by urologist at [facility]. His hematuria has improved Impaired fasting glucose. Dietary restrictions, regimental exercise and weight loss advised. check A1c. Eye screening. He sees his supervisor transferring and boxing regularly. Dental screening. He sees dentist regularly. Colon cancer screening. He had his colonoscopy done every 4 years. Immunizations. He is up-to-date on his TDAP and pneumonia vaccinations. Blood work reviewed with patient and questions answered. Screening blood work before next appointment. General health concerns discussed with patient. Scribe services used to formulate this note under HIPAA compliance and under [place] law mandated for scribe services. Patient aware [...] stone. Status post lithotripsy by urologist at [facility]. His hematuria has improved Impaired fasting glucose. Dietary restrictions, regimental exercise and weight loss advised. check A1c. Eye screening. He sees his supervisor transferring and boxing regularly. Dental screening. He sees dentist regularly. Colon cancer screening. He had his colonoscopy done every 4 years. Immunizations. He is up-to-date on his TDAP and pneumonia vaccinations. Blood work reviewed with patient and questions answered. Screening blood work before next appointment. General health concerns discussed with patient. Scribe services used to formulate this note under HIPAA compliance and under [place] law mandated for scribe services. Patient aware [...] a second opinion for weight loss at [facility] and he will talk to his online activist who would give her a referral Atrial [...] also follows up with Dr. Chi at [facility]. Screening blood work before next appointment. 01/08/2024 [...] stone. Status post lithotripsy by urologist at [facility]. His hematuria has improved Impaired fasting glucose. Dietary restrictions, regimental exercise and weight loss advised. check A1c. Eye screening. He sees his supervisor transferring and boxing regularly. Dental screening. He sees dentist regularly. Colon cancer screening. He had his colonoscopy done every 4 years. Immunizations. He is up-to-date on his TDAP and pneumonia vaccinations. Blood work reviewed with patient and questions answered. Screening blood work before next appointment. General health concerns discussed with patient. Scribe services used to formulate this note under HIPAA compliance and under [place] law mandated for scribe services. Patient aware [...] Details Provider Name:Olga saldivar, 02/12/2025 02:30:00 PM, [address] [place] [address], [phone], Insurance Providers Payer Name Payer Address Payer Phone Subscriber Number Group Number Insured Name Patient Relationship to Insured Coverage Start Date Coverage End Date [employer] Preferred [address] [place] [address] [id number] Dirk Pedro i Self - patient is the insured 2 Medical (General) History Medical History History ICD Code Essential (primary) hypertension I10 Hyperlipidemia, unspecified E78.5 COPD and he sees Dr. Jhaveri Low testosterone levels and he sees Dr. 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 He is currently on Coumadin monitored by Coumadin clinic at [facility]. Pulmonary nodule right lung. Positive on PET scan and planning to have resection by at [facility] Small bowel obstruction and status post resection and he sees Dr. Barr. Cervical radiculopathy and h e follows with [facility] and is on narcotics Smokes marijuana for appetite A Fib see Dr Bazzi Personal history of COVID-19 S/P Pasturella infection Surgical History Surgery Date(Month/Year) Small bowel obstruction 06/26/16 cervical spine 09/17/13 Right upper lobectomy at [facility] 09/2018 Hospitalization History Reason Date(Month/Year) right lobectomy 10/13/18
--- OUTSIDE RECORDS SUMMARY | 2024-12-30 18:12 | XMS_ITS | Encounter Summary ---
Author Organization [facility] Address [address] [place] [address] Care Team Providers Care Furnace Process Supervisor Name Role Phone Timoteo Escamilla MD Primary Care Provider [phone] Encounter Details Date Type Department Care Team (Late Contact Info) Description 06/25/2024 Lab Requisition [facility] - Main Lab [address] [facility] [place] [phone] Khurram Zambrano PA [address] [place] [phone] Urinary tract infection, site not specified; Gross [...] 01/01/2025 3:00 PM EDT Office Visit [facility] Hematology Oncology [address] [place] [phone] Casey Llanes MD [address] [place] [address] documented as of this encounter Procedures Procedure Name Priority Date/Time Associated Diagnosis Comments CULTURE URINE Routine 06/25/2024 1:15 PM EST Urinary tract infection, site not specified Gross hematuria documented in this encounter Results * Culture urine (06/25/2024 1:15 PM EST) Culture, Urine No growth 06/26/2024 2:25 PM EST [facility] Urine Urine specimen obtained by clean catch procedure / Unknown 06/25/2024 1:15 PM EST 06/25/2024 6:08 PM EST [facility] MICROBIOLOGY - NERAL ORDERABLES Final Result [facility] [address] [place] [address], documented in this encounter Visit Diagnoses Diagnosis Urinary tract infection, site not specified Gross hematuria documented in this encounter Care Teams Furnace Process Supervisor Relationship Specialty Start Date End Date Timoteo Escamilla MD [address] [place] [phone] PCP - General 02/23/22 documented as of this encounter
--- OUTSIDE RECORDS SUMMARY | 2024-12-30 18:12 | XMS_ITS | Encounter Summary ---
Author Organization [facility] Address [address] [place] [address] Care Team Providers Care Electrical Power Engineer Name Role Phone Timoteo Escamilla MD Primary Care Provider [phone] Encounter Details Date Type Department Care Team (Late Contact Info) Description 06/27/2024 Lab Requisition [facility] - Main Lab [address] [facility] [place] [address] Khurram Zambrano PA [address] [place] [phone] Gross hematuria Social History Tobacco Use Types [...] Description 01/01/2025 3:00 PM EDT Office Visit [facility] Hematology Oncology [address] [place] [address] Casey Llanes MD [address] [place] [address] documented as of this encounter Procedures Procedure Name Priority Date/Time Associated Diagnosis Comments AP OUTSIDE CONSULT Routine 06/25/2024 12 :00 AM EST Gross hematuria documented in this encounter Results * Anatomic pathology outside consult (06/25/2024 12:00 AM EST) Final Diagnosis A. Urine, Voided, ([id number]): Negative for high grade urothelial carcinoma. Results of UroVysion fluorescence in situ hybridization (FISH) testing: Although FISH was performed, insufficient non-obscured hybridization signals are present for evaluation and interpretation. 07/08/2024 4:42 PM EDT [facility] Clinical Information Gross hematuria R31.0 Urine Cytology/FISH (now) 07/08/2024 4:42 PM EDT [facility] Gross Description A. Urine, Voided, ([id number]): Received one ThinPrep slide for cytology and one ThinPrep slide for UroVysion FISH 07/08/2024 4:42 PM EDT [facility] Disclaimer Unless otherwise specified, all tissue is 10% NB formalin fixed and paraffin embedded. Technical pathology services provided by [facility] at [address], [place] [address] (CLIA #[id number]/Amy Stringer MD, Web Methods Developer) 07/08/2024 4:42 PM EDT [facility] Tissue Urine specimen from urethra / Unknown 06/25/2024 06/27/2024 4:00 PM EST us Khurram [facility] PATHOLOGY ORDERAB LES Final Result [facility] [address] [place] [address], documented in this encounter Visit Diagnoses Diagnosis Gross hematuria documented in this encounter Care Teams Electrical Power Engineer Relationship Specialty Start Date End Date Timoteo Escamilla MD [address] [place] [address] PCP - General 02/23/22 documented as of this encounter
== END 2024-12-30 15:19 | disposition home or self-care (01) ==
LOC: HO.ACS 14:57
PROVIDERS: PCP Hospitalist; Visit Provider Internal Medicine Medical Oncology
DX: Z79.01 Long term (current) use of anticoagulants (principal)

== ENCOUNTER → 2024-12-30 14:57 | Outpatient (BNVA) | payer MEDICARE, SELFPAY | PROVIDERS: PCP Hospitalist; Visit Provider Internal Medicine Medical Oncology | DX: Z86.73 Personal history of transient ischemic attack (TIA), and cerebral infarction without residual deficits (principal); Z79.01 Long term (current) use of anticoagulants; Z51.81 Encounter for therapeutic drug level monitoring | CPT/HCPCS: 85610; 99211 ==

== ENCOUNTER 2025-01-06 15:38 | Outpatient (AMB) | payer MEDICARE, SELFPAY ==
--- OUTSIDE RECORDS SUMMARY | 2024-06-25 11:15 | XMS_ITS ---
Author Organization [facility] Address 294 [facility] 202 [place] [address] Care Team Providers Care Secretary To Board Of Commissioners Name Role Phone CYN FAJARDO Primary Care Provider Olga Sarabia Unavailable [phone] Encounters Encounter Location Date Provider Diagnosis [facility] 294 [facility] 202 [place] [address] 06/25/2024 Olga Sarabia Plan Of Treatment Next Appt Details Provider Name:Olga Aaron janna, 02/12/2025 02:30:00 PM, 294 [facility] [address], [place], [address], Progress Notes * Dirk MOMINDOB: [birth year] (74 yo M)Acc No.[id number]:06/25/2024 Progress Notes Patient: Dirk LOVING Appointment Provider: Tima Sarabia :1950 A ge:74 Y S ex:Male Date:06/25/2024 Phone: Address:[address] [place] [address] [phone] Pcp:CYN FAJARDO Subjective: * Chief Complaints: * * Medical History: Objective: * Vitals: Assessment: Plan: * Treatment: * Images: * Electronic signature of Marty Sarabia PA-C on 01/06/2025 at 08:59 PM EDT Sign off status: Pending * Appointment Provider: Tima Sarabia Date: 0 06/25/2024 Generated for Radha carbajal/Lalo/eTransmitting on: 0 01/06/2025 08:59 PM EDT
--- OUTSIDE RECORDS SUMMARY | 2025-01-01 15:00 | XMS_ITS | Encounter Summary ---
Author Organization [facility] Address [address] [place] [id number] Care Team Providers Care Shark Biologist Name Role Phone Timoteo Escamilla MD Primary Care Provider [phone] Reason for Visit * Reason Comments Follow-up Encounter Details Date Type Department Care Team (Late st Contact Info) Description 01/01/2025 3:00 PM EDT Office Visit [facility] Hematology Oncology [address] [place] [address] Casey Llanes MD [address] [place] [phone] Squamous cell carcinoma of right lung (CMS/HCC V24, CMS/HCC V28) (Primary Dx) Social History Tobacco Use Types Packs/Day Years Used Date Smoking Tobacco: Never Assessed Sex and Gender Information Value Date Recorded Sex Assigned at Not on file Legal Sex Male 11:23 PM EST Gender Identity Not on file Sexual Orientation Not on file documented as of this encounter Last Filed Vital Signs Vital Sign Reading Time Taken Comments Blood Pressure 125/61 01/01/2025 3:09 PM EDT Pulse 68 01/01/2025 3:09 PM EDT Temperature 36.8 C (98.3 F) 01/01/2025 3:09 PM EDT Respiratory Rate - - Oxygen Saturation 68% 01/01/2025 3:09 PM EDT Inhaled Oxygen Concentration - - Weight 42.5 kg (93 lb 12.8 oz) 01/01/2025 3:09 P M EDT Height - - Body Mass Index 16.1 10/04/2023 3:32 PM EDT documented in this encounter Progress Notes * Casey Llanes MD - 01/01/2025 3:00 PM EDT Diagnosis/treatment: #1 Pancreatic cysts. #2 Stage IA T1aN0 squamous cell lung cancer, diagnosed in 08/2018. The patient underwent a right upper lobectomy and mediastinal julia dissection on 09/12/2018. Interval history: The patient is a formerly smoking 74-year-old gentleman who underwent abdominal surgery for volvulus in 2017 and subsequently had gradual weight loss from [...] [facility]ular [facility] and was otherwise unremarkable. A chest CT without contrast on 02/27/2023 at [facility] showed stable findings. An A/P CT [...] chest CT without contrast on 11/29/2023 at [facility] reportedly showed stable findings. He reports chronic mild left-sided abdominal pain in the mornings since the 2017 volvulus surgery. He reports chronic intermittent anorexia and chronic early satiety. He reports weight loss. He lostweight from 114 pounds on 04/26/2023 down to 101 pounds on 10/04/2023. He lost weight from 102 pounds on 07/03/2024 down to 94 pounds on 01/01/2025. Due to concern about his weight loss, [...] pathology revealed colonic mucosa without pathologic change. An abdominal MRI with contrast on 06/12/2024 showed stable findings. An A/P CT with IV contrast on 06/27/2024 showed small volume bilateral nephrolithiasis and was otherwise unremarkable. He denies constipation or diarrhea. 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 He is . He has 1 daughter [...] pancreatic tail cyst. I referred him to [facility] for consideration of an EGD/EUS for aspiration of the cyst. [facility] is following MRIs. He presented in 08/2018 with a stage IA T1aN0 squamous cell lung cancer. He underwent a right upper lobectomy and mediastinal julia dissection on 09/12/2018. He is compliant with his surveillance chestCTs which have shown no evidence of recurrence. He has had gradual weight loss since undergoing volvulus surgery in 2016, likely a complication from the surgery. He [...] chest CT without contrast on 11/29/2023 at [facility] reportedly showed stable findings. Visit summary: The patient is a 74-year-old gentleman who presented in 08/2018 with a stage IA squamous cell lung cancer. Underwent right upper lobectomy mediastinal julia dissection. He is compliance with surveillance chest CTs which have been unremarkable. He has recurrent hematuria thought to be the next secondary left nephrolithiasis. He has chronic intermittent anorexia likely secondary to his prior abdominal surgeries. He has had significant weight loss. Multiple CTs and MRIs have shown no evidence of neoplasm. Underwent an EGD and colonoscopy 04/2024 which showed no evidence of neoplasm. I referred himto our Brand Planner. I spent 45 minutes during his encounter, reviewing extensive imaging studies, performing a history and physical, providing education and counseling, and coordinating care. documented in this encounter Plan of Treatment Upcoming Encounters Date Type Department Care Team (Late st Contact Info) Description 07/02/2025 3:00 PM EDT Office Visit [facility] Hematology Oncology [address] [place] [address] Casey Llanes MD [address] [place] [phone] documented as of this encounter Visit Diagnoses Diagnosis Squamous cell carcinoma of right lung (CMS/HCC V24, CMS/HCC V28)- Primary documented in this encounter Care Teams Shark Biologist Relationship Specialty Start Date End Date Timoteo Escamilla MD [address] [place] [phone] PCP - General 02/23/22 documented as of this encounter
[2025-01-06 15:36] VITALS: BP 118/62; PULSE 86; O2SAT 95; BMI 15.0
--- NOTE | 2025-01-06 15:36 | A.OFFVIS_ITS ---
Vital Signs 3 01/06/25 15:36 Height 5 ft 6 in Weight 93 lb BMI 15.0 BP 118/62 Blood Pressure Location Rt brachial Position Sitting Pulse 86 Pulse Source Pulse Oximeter Pulse Oximetry (%) 95 Oxygen Delivery Method Room Air Intake Visit Reasons: Bronchiectasis Allergies bupropion (From Wellbutrin) Allergy (Intermediate, Verified 01/06/25 15:42) Nausea levofloxacin (From LEVAQUIN) Allergy (Intermediate, Verified 01/06/25 15:42) GI UPSET/ WEIGHT LOSS, anaphylaxis sulfamethoxazole (From Bactrim) Allergy (Intermediate, Verified 01/06/25 15:42) rash trimethoprim (From Bactrim) Allergy (Intermediate, Verified 01/06/25 15:42) rash ibuprofen Allergy (Mild, Verified 01/06/25 15:42) GI DISTRESS HPI Comments Details: The patient is a 74-year-old gentleman with a significant pulmonary history. the patient does have a history of lung cancer diagnosed back in 2019 status post right upper lobectomy. Patient did not receive any chemo or radiation. He also carries diagnosis of COPD. He also has pulmonary nodules and also evidence of interstitial lung disease. His last CT scan of the chest was done back in August 2021 at [facility]. It appears that the patient has evidence of interstitial lung disease with underlying pulmonary fibrosis. There is also evidence of bronchiectasis with extensive mucus plugging. He has pulmonary nodules. Some of the areas of pulmonary fibrosis appear to be coalescing and difficult to know if there is any recurrent malignancy. The radiologist recommended a close follow-up. The patient continues to have a worsening cough productive in nature. Yellowish to green sputum. We were able to perform a nebulized treatment with Xopenex and hypertonic saline and did send sputum for culture for both AFB and Gram staining culture. The patient has had a bronchoscopy in the past many years ago performed by a local thoracic surgeon and he tolerated that well. At this point he does not need a bronchoscopy but we have to work on his chest physical therapy. The patient does have a percussion valve already prescribed by his previous promotion manager. At this time will increase his chest physical therapy to try to remove mucus plugging in the patient will need a repeat CT scan. In addition to that the patient has been getting samples of Trelegy which appears to be very effective in beneficial for him. However, is also very expensive and [facility] I will send him a generic Wixela with hope that this will be less of a financial burden. 09/29/2023 the patient is here for a pulmonary follow-up visit. He continues to do fairly well. 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 The twice a day dosing is hard for him because of GI upset. He is going to decrease it down to once a day. Also can try some simethicone as needed. His cough congestion has improved. He is also dealing with atrial fibrillation. But hopefully we can get him back to pulmonary rehab so he can start exercising. He needs to also increase his caloric intake to make sure that he gained some weight. Continues use the oxygen with good effect. Will go ahead and decrease his Trelegy down to 100 from 200 because of his concerns of high inhaled steroids. We also did review his last CT scan of the chest that was done at [facility] in 2021. Patient did have pulmonary nodules. Based on his ongoing symptoms in his weight loss will go ahead and request a CT scan of the chest prior to the next visit. 01/04/2024 the patient is here for a pulmonary follow-up visit. The patient overall has been doing better. He has been responding well to the doxycycline. Although sometimes hard to tolerate. Sometimes he does decreased down to 3 times a week which is very reasonable. The patient did have a CT scan of the chest that we did personally review. And appears that he has some chronic airway disease emphysematous changes and some degree of atelectasis and scarring. The patient does have the oxygen at home he does use it if he does get involved in increased exercise activity. He was supposed to start pulmonary rehabilitation but he had not started as of yet. I am hopeful that he calls and this situated with the quickly start building muscle strength and respiratory endurance. Will continue with chest PT as well. The patient will continue with current therapy and will follow-up sometime in the spring. If he has any issues prior to that he will call for an earlier assessment. 03/07/2024 the patient is here for a pulmonary preoperative evaluation. 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 He is here to be evaluated preoperatively. The patient does have advanced COPD. He has also has bronchiectasis and has been colonized with stenotrophomonas responding well to the antibiotic therapy that he uses prophylactically. In view of his perioperative pulmonary risk the patient is considered very high risk. We had him do a spirometry in the office in his FEV1 was only 22% predicted which is 0.57 L. This is consistent with very severe COPD. The patient's last blood gas also demonstrated a slightly elevated pCO2 of 50 mmHg. Therefore the patient does have evidence of hypercarbic respiratory failure due to COPD. Therefore any form of anesthesia will be considered high risk for perioperative pulmonary complications which include; atelectasis, hypoxia, pneumonia, bronchospasms and prolonged mechanical ventilation. During the visit with luciano andujar for a walking oximetry the patient was able to maintain a pulse ox of 96% throughout the ambulation which is reassuring. His distance score was also these at 5 out of 10. He continues uses respiratory therapy as prescribed. Otherwise the patient is without any other complaints. 07/01/2024 the patient is here for a pulmonary follow-up visit. Overall he is doing okay. He continues on the doxycycline daily. Unfortunately his cough is more congested and productive. Moderate severity. He does have multiple allergies. He does have a history stenotrophomonas. Will go ahead and increase his doxy to twice a day for month. In the meantime also try to get a sputum culture. His last CT scan of the chest back in 12/12/2023 which we personally reviewed. Does have some bronchiectatic changes COPD emphysema in addition to the fibrosis but no evidence of any pulmonary nodules of any concern. He has some calcified nodules consistent with granulomas. Continues with respiratory therapy. He continues to try to eat keep his caloric intake up. His appetite is a little bit down. He is having some hematuria. He is following up with Urology. Still the looking for a reason for his weight loss. It could all be related to his underlying pulmonary disease in his work of breathing will result in increased caloric demand. 01/06/2025 the patient is here for pulmonary follow-up visit. The patient overall has been doing okay from a respiratory status. He continues on the doxy for the stenotrophomonas. Unfortunately he also continues smoking cigarettes and therefore causes him to have the chronic bronchitis. He did bring up some phlegm in his still yellowish in color and thick in consistency. But overall stable. He does have bronchiectatic changes. He has major issues weight loss. Significant weight loss. It is not clear the etiology. Although he has had issues with absorption. He is scheduled to see a dietitian. In the meantime he is snacking and trying to eat. His appetite is okay just that his stomach is small and he gets full quickly. He is also working closely with GI. He does use his nebulizer twice a day with good results. He continues to use his Trelegy inhaler. I think would be reasonable to keep him on the 100 mcg dose. Will plan to follow-up in 6 months and will consider additional testing then. He did have issues with back pain therefore has not been able to go to pulmonary rehabilitation. Appears to have some compression fractures in the back. He will follow-up with his primary care potentially pain management. [facility] Medical History (Updated 07/29/24 @ 16:06 by Mira Brush, BLUE) Wears dentures Renal calculi Cataracts, bilateral Neck pain Carotid stenosis, left HTN (hypertension) Bronchiectasis Pulmonary fibrosis Pulmonary nodules Bronchiectasis History of MRSA infection Arthritis Back pain Hx of spinal stenosis Lab test negative for COVID-19 virus Arrhythmia Hx of Clostridium difficile infection Hx of cancer of lung On anticoagulant therapy Elevated cholesterol Hx of ulcerative colitis CVA (cerebral vascular accident) COPD (chronic obstructive pulmonary disease) AAA (abdominal aortic aneurysm) Vitamin D deficiency Hypogonadotropic hypogonadism Osteoporosis Surgical History (Updated 08/06/24 @ 11:47 by Mira Brush RN) Hx of left cataract extraction (08/05/24) History of bronchoscopy (06/2023) Hx of cervical discectomy H/O colonoscopy History of lobectomy of lung History of bowel resection Family History Father AAA (abdominal aortic aneurysm) Mother No problems noted. Social History (Updated 07/29/24 @ 15:56 by Mira Brush RN) Household Members: Spouse Housing: Condominium Are you a primary child care specialist to a significant other at home: No Do you presently have visiting nurse or other home services: No 75 years or older and lives alone: No Patient Tobacco Use Status: Former Tobacco user Tobacco use type: Cigarette Years Smoked: 54 Years Substance Use Type: Marijuana Review of Systems Const Reports fatigue, Denies fever(s) and Reports weight loss Eyes Denies eye discharge ENT Denies change in voice Card Denies chest pain and Reports dyspnea on exertion Resp Reports chest congestion, Reports cough, Denies hemoptysis, Reports dyspnea on exertion and Denies wheezing GI Reports no additional complaints Reports as per HPI and Reports hematuria Musc Reports no additional complaints Skin/Breast Denies rash Neuro Reports no additional complaints Endo Reports no additional complaints and Reports fatigue Ortiz/Lymph Denies easy bleeding, Denies easy bruising and Denies lymphadenopathy Aller/Immun Denies wheezing Physical Exam Vital Signs: Last Vital Signs Pulse 86 01/06/25 15:36 BP 118/62 01/06/25 15:36 Pulse Ox 95 01/06/25 15:36 Oxygen Delivery Method Room Air 01/06/25 15:36 BMI result Body Mass Index 15.0 Const General: comfortable HEENT Head: Yes normal to inspection Eyes General: appearance normal, both eyes and all related structures Neck Neck: Yes supple Chest Chest palpation & inspection: normal inspection of the chest Resp Effort & Inspection: normal respiratory effort Auscultation: no crackles, no rales, no rhonchi and diminished lung sounds Cardio Rate: regular rate Rhythm: regular rhythm Heart sounds: S1 normal heart sound present and S2 normal heart sound present Extrem General: Yes no clubbing, cyanosis or edema Results Reviewed Results Reviewed: Assessment & Plan Assessment & Plan (1) Bronchiectasis: Code(s): J47.9 - Bronchiectasis, uncomplicated Category: Medical Qualifiers: Bronchiectasis type: uncomplicated Qualified Code(s): J47.9 - Bronchiectasis, uncomplicated (2) COPD (chronic obstructive pulmonary disease): Comment: very severe, FEV 1 22%predicted Code(s): J44.9 - Chronic obstructive pulmonary disease, unspecified Category: Medical Qualifiers: COPD type: COPD with acute exacerbation Qualified Code(s): J44.1 - Chronic obstructive pulmonary disease with (acute) exacerbation (3) Dyspnea: Code(s): R06.00 - Dyspnea, unspecified Category: Medical Qualifiers: Dyspnea type: dyspnea on exertion Qualified Code(s): R06.09 - Other forms of dyspnea (4) Pulmonary fibrosis: Code(s): J84.10 - Pulmonary fibrosis, unspecified Category: Medical (5) Pulmonary nodules: Code(s): R91.8 - Other nonspecific abnormal finding of lung field Category: Medical (6) Hx of cancer of lung: Comment: with right upper [id number] not need chemotherapy or radiation Code(s): Z85.118 - Personal history of other malignant neoplasm of bronchus and lung Category: Medical Plan Doxycycline daily Trelegy 100mcg daily nebulized therapy with albuterol followed by hypertonic saline followed by Aerobika valve twice a day hypertonic saline 3% to be started for his chest physical therapy Exercise routine Mucinex as needed follow-up in 4-6 months Coding Level of Care Code Est Pt Level 4 (02575) Complex EM visit Add On G2211 Diagnoses Bronchiectasis without complication J47.9 Bronchiectasis type: uncomplicated Chronic obstructive pulmonary disease with acute exacerbation J44.1 COPD type: COPD with acute exacerbation Dyspnea on exertion R06.09 Dyspnea type: dyspnea on exertion Pulmonary fibrosis J84.10 Pulmonary nodules R91.8 Hx of cancer of lung Z85.118 Time Spent (min) 16
--- OUTSIDE RECORDS SUMMARY | 2025-01-06 20:59 | XMS_ITS | Patient Health Record ---
Author Organization [facility] Address [address] [place] [address] Care Team Providers Care Wireless Consultant Name Role Phone CYN FAJARDO Primary Care Provider [phone] Olga Sarabia Unavailable [phone] Allergies Allergen (clinical drug ingredient) Drug/Non Drug Allergy documented on EMR Reaction Allergy Type Onset Date Status amoxicillin / clavulanate Augmentin hives Drug Allergy Active levofloxacin Levofloxacin anaphylaxis Drug Allergy Active Motrin Unknown Drug Allergy Active Wellbutrin Unknown Drug Allergy Active Results Component Value Reference Range Notes CULTURE URINE Reviewed date:06/26/2024 04:41:22 PM Interpretation: Performing Lab: Notes/Report: Culture, Urine No growth Hemoglobin [id number] Reviewed date:07/21/2024 09:01:25 AM Interpretation: Performing Lab:[facility] [place], [address] [facility], Phone - [phone], Director - Fabio Notes/Report: Hemoglobin A1c 5.7 4.8-5.6 % . Prediabetes: 5.7 - 6.4 Diabetes: >6.4 Glycemic control for adults with diabetes: <7.0 Lipid [id number] Reviewed date:07/21/2024 09:01:44 AM Interpretation: Performing Lab:[facility] [place], [address] [facility], [place], Phone - [phone], Director - MDLizadry Notes/Report: Cholesterol, Total 163 100-199 mg/dL Triglycerides 81 0-149 mg/dL HDL Cholesterol 62 >39 mg/dL VLDL Cholesterol Huan 15 5-40 mg/dL LDL Chol Calc ([facility]) 86 0-99 mg/dL Comp. Metabolic Panel (14)-3 Reviewed date:07/21/2024 09:02:02 AM Interpretation: Performing Lab:[facility] [place], [address] [facility] [address], Phone - [phone], Director - Fabio Notes/Report: Glucose 106 70-99 [...] ALT (SGPT) 9 0-44 IU/L Albumin/Creatinine Ratio,Uri [id number] Reviewed date:07/21/2024 09:02:08 AM Interpretation: Performing Lab:[facility] [place], [address] [facility], [place], Phone - [phone], Director - Fabio Notes/Report: Creatinine, Urine 81.3 Not Estab. mg/dL Albumin, Urine 10.6 Not Estab. ug/mL Alb/Creat Ratio 13 0-29 mg/g creat Normal: 0 - 29 Moderately increased: 30 - 300 Severely increased: >300 AP OUTSIDE CONSULT Reviewed date:07/08/2024 05:03:14 PM Interpretation: Performing Lab: Notes/Report: Gross hematuria R31.0 Urine Cytology/FISH (now) Urine Cytology/FISH (now) Final Diagnosis A. Urine, Voided, ([id number]): Negative for high grade urothelial carcinoma. Results of UroVysion fluorescence in situ hybridization (FISH) testing: Although FISH was performed, insufficient non-obscured hybridization signals are present for evaluation and interpretation. Gross Description A. Urine, Voided, ([id number]): Received one ThinPrep slide for cytology and one ThinPrep slide for UroVysion FISH Disclaimer Unless otherwise specified, all tissue is 10% NB formalin fixed and paraffin embedded. Technical pathology services provided by [facility] at [address], [place] [address] (CLIA #[id number]/Rachel Stringer MD, Hub Associate) Clinical Information Gross hematuria R31.0 Reason For Referral Reason A Fib- Dr Mike solorio evaluate and treat Diagnosis 1 Atrial fibrillation (I48.91) Referral Organization [facility] Referring Provider First Name CYN Referring Provider Last Name LEIRekha Referring Provider Speciality Internal M edicine Referred Provider Specialty Cardiology General Notes Please call the [facility] ent to schedule the appointment, Encounter created and SMS sent to the pt., Tatiana Brambila 11/15/2024 03:11:37 PM > Referral Priority Routine [...] MG TAKE 1 TABLET BY [facility] TWICE DAILY DIRECTED; Duration: 54 Active Lovenox [...] Risk Notes Problem Malignant tumor of lung (255893262) Malignant neoplasm of unspecified part of unspecified bronchus or lung (C34.90) Active confirmed Problem 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 Problem Generalized anxiety disorder (42351364) Generalized anxiety disorder (F41.1) Active confirmed Problem Atrial fibrillation (42763503) Unspecified atrial fibrillation (I48.91) Active confirmed Problem Cerebral infarction (836081431) Cerebral infarction, unspecified (I63.9) Active confirmed Problem Occlusion and stenosis of multiple and bilateral cerebral arteries (008868612) Occlusion and stenosis of bilateral carotid arteries (I65.23) Active confirmed Problem Chronic obstructive pulmonary disease (68689657) Chronic obstructive pulmonary disease, unspecified (J44.9) Active confirmed Problem Chronic respiratory failure (39805512) Chronic respiratory failure with hypoxia (J96.11) Active confirmed Problem Localized infection of skin AND/OR subcutaneous tissue (977668315) Local infection of the skin and subcutaneous tissue, unspecified (L08.9) Active confirmed Problem Cervical radiculopathy (39891712) Radiculopathy, cervical region (M54.12) Active confirmed Problem Muscle weakness (59635276) Muscle weakness (generalized) (M62.81) Active confirmed Problem Solitary pulmonary nodule (461042788) Solitary pulmonary nodule (R91.1) Active confirmed Problem History of excision of intestinal structure (909502127) Acquired absence of other specified parts of digestive tract (Z90.49) Active confirmed Problem Abdominal aortic aneurysm without rupture (98588324) Abdominal aortic aneurysm, without rupture (I71.4) Active confirmed Problem Essential hypertension (64647838) Essential (primary) hypertension (I10) Active confirmed Problem Intestinal obstruction (58743939) Unspecified intestinal obstruction, unspecified as to partial versus complete obstruction (K56.609) Active confirmed Problem Atrial fibrillation (40994094) Atrial fibrillation (I48.91) Active confirmed Problem History of disease caused by Severe acute respiratory syndrome coronavirus 2 (situation) (0413862316567638 05) Personal history of COVID-19 (Z86.16) Active confirmed Vital Signs Heart Rate 70 /min 11/14/2024 Temperature 97.2 degrees Fahrenheit 11/14/2024 Blood pressure diastolic 74 mm Hg 11/14/2024 Oximetry 97 % 11/14/2024 Height 65 in 11/14/2024 Blood pressure systolic 120 mm Hg 11/14/2024 Weight 95.2 lbs 11/14/2024 BMI 15.84 kg/m2 11/14/2024 Encounters Encounter Location Date Provider Diagnosis [address] [place] [address] 01/08/2024 CYN FAJARDO Essential (primary) hypertension I10 ; Encounter for general adult medical examination without abnormal findings Z00.00 ; Chronic obstructive pulmonary disease, unspecified J44.9 ; Malignant neoplasm of unspecified part of unspecified bronchus or lung C34.90 ; Unspecified atrial fibrillation I48.91 and Impaired fasting glucose R73.[address] [place] [address] 06/04/2024 Olga Sarabia Person consulting fo r explanation of examination or test findings Z71.[address] [place] [address] 07/25/2024 Olga Sarabia Pre-operative examination Z01.818 and Impaired fasting glucose R73.[address] [place] [address] 11/14/2024 CYN FAJARDO Abnormal weight loss R63.4 ; Unspecified atrial fibrillation I48.91 ; Malignant neoplasm of unspecified part of unspecified bronchus or lung C34.90 and Essential (primary) hypertension I10 [address] [place] [address] 02/27/[address] [place] [address] 04/01/[address] [place] [address] 04/25/[address] [place] [address] 05/15/2024 [facility] [address] [place] [address] 05/23/2024 [facility] [address] [place] [address] 05/23/2024 [facility] [address] [place] [address] 05/29/2024 [facility] [address] [facility] [place] [address] 06/05/2024 [facility] [address] [facility] [place] [address] 06/06/2024 [facility] [address] [facility] [place] [address] 07/10/2024 [facility] [address] [facility] [place] [address] 07/16/2024 [facility] [place] [address] [facility] [place] [address] 07/25/2024 [facility] [address] [facility] [place] [address] 09/03/2024 [facility] [address] [facility] [place] [address] 09/19/2024 [facility] [address] [facility] [place] [address] 10/14/2024 [facility] [address] [place] [address] 10/14/2024 [facility] [address] [facility] [place] [address] 11/15/2024 [facility] [address] [facility] [place] [address] 12/20/2024 [facility] [address] [place] [address] 12/25/2024 ADDISONANEUDY FAJARDO Assessments Encounter Date Diagnosis (ICD Code) [...] stone. Status post lithotripsy by urologist at [facility]. His hematuria has improved Impaired fasting glucose. Dietary restrictions, regimental exercise and weight loss advised. check A1c. Eye screening. He sees his parking enforcer regularly. Dental screening. He sees dentist regularly. Colon cancer screening. He had his colonoscopy done every 4 years. Immunizations. He is up-to-date on his TDAP and pneumonia vaccinations. Blood work reviewed with patient and questions answered. Screening blood work before next appointment. General health concerns discussed with patient. Scribe services used to formulate this note under HIPAA compliance and under [place] law mandated for scribe services. Patient aware [...] stone. Status post lithotripsy by urologist at [facility]. His hematuria has improved Impaired fasting glucose. Dietary restrictions, regimental exercise and weight loss advised. check A1c. Eye screening. He sees his parking enforcer regularly. Dental screening. He sees dentist regularly. Colon cancer screening. He had his colonoscopy done every 4 years. Immunizations. He is up-to-date on his TDAP and pneumonia vaccinations. Blood work reviewed with patient and questions answered. Screening blood work before next appointment. General health concerns discussed with patient. Scribe services used to formulate this note under HIPAA compliance and under [place] law mandated for scribe services. Patient aware [...] surgery BL, on August 05/2025 with [facility] with Dr. Robledo. Plan as follows: [...] he does follow with Coumadin clinic at [facility]. Advised patient to check with [...] surgery BL, on August 05/2025 with [facility] with Dr. Robledo. Plan as follows: [...] he does follow with Coumadin clinic at [facility]. Advised patient to check with [...] a second opinion for weight loss at [facility] and he will talk to his youth liaison officer who would give her a referral Atrial [...] also follows up with Dr. Chi at [facility]. Screening blood work before next appointment. 01/08/2024 Chronic obstructive pulmonary disease, unspecified (ICD-10 [...] stone. Status post lithotripsy by urologist at [facility]. His hematuria has improved Impaired fasting glucose. Dietary restrictions, regimental exercise and weight loss advised. check A1c. Eye screening. He sees his parking enforcer regularly. Dental screening. He sees dentist regularly. Colon cancer screening. He had his colonoscopy done every 4 years. Immunizations. He is up-to-date on his TDAP and pneumonia vaccinations. Blood work reviewed with patient and questions answered. Screening blood work before next appointment. General health concerns discussed with patient. Scribe services used to formulate this note under HIPAA compliance and under [place] law mandated for scribe services. Patient aware [...] a second opinion for weight loss at [facility] and he will talk to his youth liaison officer who would give her a referral Atrial [...] also follows up with Dr. Chi at [facility]. Screening blood work before next appointment. 01/08/2024 [...] stone. Status post lithotripsy by urologist at [facility]. His hematuria has improved Impaired fasting glucose. Dietary restrictions, regimental exercise and weight loss advised. check A1c. Eye screening. He sees his parking enforcer regularly. Dental screening. He sees dentist regularly. Colon cancer screening. He had his colonoscopy done every 4 years. Immunizations. He is up-to-date on his TDAP and pneumonia vaccinations. Blood work reviewed with patient and questions answered. Screening blood work before next appointment. General health concerns discussed with patient. Scribe services used to formulate this note under HIPAA compliance and under [place] law mandated for scribe services. Patient aware of service. Verbal consent and written consent taken from the patient. Patient understands and verbalizes understanding of the scribes services and all questions answered regarding scribes services. Patient agrees to use of scribes services. 11/14/2024 Malignant neoplasm of unspecified part of [...] a second opinion for weight loss at [facility] and he will talk to his youth liaison officer who would give her a referral Atrial [...] also follows up with Dr. Chi at [facility]. Screening blood work before next appointment. 11/14/2024 Essential (primary) hypertension (ICD-10 - I10) [...] a second opinion for weight loss at [facility] and he will talk to his youth liaison officer who would give her a referral Atrial [...] also follows up with Dr. Chi at [facility]. Screening blood work before next appointment. 01/08/2024 Unspecified atrial fibrillation (ICD-10 - I48.91) [...] stone. Status post lithotripsy by urologist at [facility]. His hematuria has improved Impaired fasting glucose. Dietary restrictions, regimental exercise and weight loss advised. check A1c. Eye screening. He sees his parking enforcer regularly. Dental screening. He sees dentist regularly. Colon cancer screening. He had his colonoscopy done every 4 years. Immunizations. He is up-to-date on his TDAP and pneumonia vaccinations. Blood work reviewed with patient and questions answered. Screening blood work before next appointment. General health concerns discussed with patient. Scribe services used to formulate this note under HIPAA compliance and under [place] law mandated for scribe services. Patient aware [...] stone. Status post lithotripsy by urologist at [facility]. His hematuria has improved Impaired fasting glucose. Dietary restrictions, regimental exercise and weight loss advised. check A1c. Eye screening. He sees his parking enforcer regularly. Dental screening. He sees dentist regularly. Colon cancer screening. He had his colonoscopy done every 4 years. Immunizations. He is up-to-date on his TDAP and pneumonia vaccinations. Blood work reviewed with patient and questions answered. Screening blood work before next appointment. General health concerns discussed with patient. Scribe services used to formulate this note under HIPAA compliance and under [place] law mandated for scribe services. Patient aware [...] Details Provider Name:Olga saldivar, 02/12/2025 02:30:00 PM, [address] [place] [address], [address], Insurance Providers Payer Name Payer Address Payer Phone Subscriber Number Group Number Insured Name Patient Relationship to Insured Coverage Start Date Coverage End Date [employer] Preferred [address] [place] [address] [phone] [id number] Dirk Pedro i Self - patient is the insured 2 Medical (General) History Medical History History ICD Code Essential (primary) hypertension I10 Hyperlipidemia, unspecified E78.5 COPD and he sees Dr. Jhaveri Low testosterone levels and he sees Dr. 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 He is currently on Coumadin monitored by Coumadin clinic at [facility]. Pulmonary nodule right lung. Positive on PET scan and planning to have resection by at [facility] Small bowel obstruction and status post resection and he sees Dr. Barr. Cervical radiculopathy and h e follows with [facility] and is on narcotics Smokes marijuana for appetite A Fib see Dr Bazzi Personal history of COVID-19 S/P Pasturella infection Surgical History Surgery Date(Month/Year) Small bowel obstruction 06/26/16 cervical spine 09/17/13 Right upper lobectomy at [facility] 09/2018 Hospitalization History Reason Date(Month/Year) right lobectomy 10/13/18
--- OUTSIDE RECORDS SUMMARY | 2025-01-06 20:59 | XMS_ITS | Clinical Summary ---
Author Organization [facility] Address [address] [place] [address] Care Team Providers Care Director Of Business Systems Name Role Phone Timoteo Escamilla MD Primary Care Provider [phone] Allergies Active Allergy Reactions Criticality Noted Date [...] age to complete this topic Care Teams Director Of Business Systems Relationship Specialty Start Date End Date Timoteo Escamilla MD [address] [id number] PCP - General Internal Medicine 02/23/22
--- OUTSIDE RECORDS SUMMARY | 2025-01-06 20:59 | XMS_ITS | Clinical Summary ---
Author Organization [facility] Address [address] [place] [address] Phone Care Team Providers Care Flotation Tank Operator Name Role Phone Timoteo Escamilla MD Primary Care Provider [phone] Allergies Active Allergy Reactions Criticality Noted Date [...] Squamous cell carcinoma of r ight lung (CMS/HCC V24, CMS/[facility] V28) 04/23/2022 Encounters Date Type Department Care Team Description 01/02/2025 Telephone [facility] Radiation Oncology [address] [place] [address] 01/01/2025 3:00 PM EDT Office Visit [facility] Hematology Oncology [address] [place] [address] Casey Llanes MD Squamous cell carcinoma of right lung ([facility] V24, [facility] V28) (Primary Dx) 12/09/2024 Telephone [facility] [address] [facility] [address] [place] [address] Timoteo Escamilla MD 11/18/2024 Telephone [facility] [address] [address] [place] [address] Timoteo Escamilla MD from Last 3 Months [...] oz) 01/01/2025 3:09 P M EDT Height 162.6 cm (5' 4 ) 10/04/2023 3:32 PM EDT Body Mass Index 16.1 10/04/2023 3:32 PM EDT Plan of Treatment Upcoming Encounters Date Type Department Care Team (Late st Contact Info) Description 07/02/2025 3:00 PM EDT Office Visit [facility] Hematology Oncology [address] [place] [address] Casey Llanes MD [address] [place] [address] Health Maintenance Due Date Last [...] Depression Screening 04/24/2024 Influenza Vaccine (#1) 2024 3, 03/23/2022, 01/23/2020, [...] topic Insurance [employer] Care Teams Flotation Tank Operator Relationship Specialty Start Date End Date Timoteo Escamilla MD [address] [place] [address] PCP - General 02/23/22
--- OUTSIDE RECORDS SUMMARY | 2025-01-06 20:59 | XMS_ITS | Encounter Summary ---
Author Organization [facility] Address [address] [place] [address] Care Team Providers Care Junior Electrical Engineer Name Role Phone DylanTimoteo pérez Ramos GRACIA Primary Care Provider [phone] Reason for Visit * Reason Onset Date Comments referral to dietitian 01/02/2025 Encounter Details Date Type Department Care Team (Late st Contact Info) Description 01/02/2025 Telephone [facility] Radiation Oncology [address] [place] [address] [address] Social History Tobacco Use Types Packs/Day Years Used Date Smoking Tobacco: Never Assessed Sex and Gender Information Value Date Recorded Sex Assigned at Not on file Legal Sex Male 11:23 PM EST Gender Identity Not on file Sexual Orientation Not on file documented as of this encounter Progress Notes * Alana Hanson RD - 01/02/2025 5:07 PM EDT Received nutrition consult from Dr. Llanes. Reviewed recent office note and recommendations. Wt loss noted. Spoke with patient and booked initial nutrition consultation Monday01/13/25 at 3pm in the cancer center. Reviewed directions to the radiation oncology department on the first floor of the [facility] ([facility] Contact information for outpatient oncology dietitian provided [phone]. documented in this encounter Plan of Treatment Upcoming Encounters Date Type Department Care Team (Late st Contact Info) Description 07/02/2025 3:00 PM EDT Office Visit [facility] Hematology Oncology [address] [place] [address] Casey Llanes MD [address] [place] [address] documented as of this encounter Visit Diagnoses Not on filedocumented in this encounter Care Teams Junior Electrical Engineer Relationship Specialty Start Date End Date Timoteo Escamilla MD [address] [place] [address] PCP - General 02/23/22 documented as of this encounter
--- OUTSIDE RECORDS SUMMARY | 2025-01-06 20:59 | XMS_ITS | Patient Health Record ---
Author Organization [facility] Address [address] [place] [address] Care Team Providers Care Services Account Manager Name Role Phone Ming Ahmet Primary Care Provider Unavailjonathan martínez Nohelia Dickinson Unavailable [phone] Allergies Allergen (clinical drug ingredient) Drug/Non Drug [...] Treatment Pending Test Test Name Order Date [id number] Destruction, -06/30/2015 [id number] Destruction, -08/03/2015 Insurance Providers Payer Name Payer Address Payer Phone Subscriber Number Group Number Insured Name Patient Relationship to Insured Coverage Start Date Coverage End Date [employer] Preferred [address] [place] [address] [id number] Dirk Pedro i Self - patient is the insured Medical (General) History Medical History History ICD Code Hypertension Stroke Measles Chicken pox Surgical History Surgery Date(Month/Year) cervical fusion 08/2012
--- OUTSIDE RECORDS SUMMARY | 2025-01-06 21:00 | XMS_ITS | Patient Health Record ---
Author Organization [facility] Address [address] [place] [address] Care Team Providers Care Television Receiver Analyzer Name Role Phone SCOTTY CYN Primary Care Provider Sarwat Lopez [phone] Allergies Allergen (clinical drug ingredient) Drug/Non Drug [...] 5 MG Oral for 90 Active Creon 42800 UNIT take 1 15-30 minutes before each [...] Problem Screening for malignant neoplasm of colon (367310808) Encounter for screening for malignant neoplasm of colon (Z12.11) Active confirmed Problem Diarrhea (02793863) Diarrhea (R19.7) Active confirmed Problem 514645087 Weight loss (R63.4) Active confirmed Problem Irritable bowel syndrome with diarrhea (665797662) Irritable bowel syndrome with diarrhea (K58.0) Active confirmed Problem 404516205 Flatulence (R14.3) Active confirmed Problem 54439154 Constipation, unspecified constipation type (K59.00) Active confirmed Problem 59244019 Abdominal cramps (R10.9) Active confirmed Problem 03256446 Other ulcerative colitis without complication (K51.80) Active confirmed Problem 867396102 Anemia, unspecified type (D64.9) Active confirmed Problem Ulcerative colitis (11380308) Ulcerative colitis (K51.90) Active confirmed Problem 84538285 Diarrhea, unspecified type (R19.7) Active confirmed Problem 274739855 Chronic pancreatitis, unspecified pancreatitis type (K86.1) Active confirmed Problem Clostridium difficile diarrhea (5264128751192) Clostridium difficile diarrhea (A04.72) Active confirmed Problem Clostridioides difficile infection (944384075) Clostridioides difficile infection (A49.8) Active confirmed Plan [...] Date [employer] PREF[employer]ED [address] [place] [address] [id number] LEIGHTON MELGAR Self - patient is the insured Medical (General) History Medical History History ICD Code Most recent colonoscopy was 03/10/2010--no active colitis, no dysplasia on biopsies, no polyps Stroke-causing some partial loss of visi on in the left eye 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 Ramos Hyperlipidemia Ulcerative colitis dating back to the Denies [place],DM,renal disease Chronic back pain--spinal stenosis AAA--approx 3 cm-followed with periodic U/S RUL Lung cancer with surgery as below C.diff infection 04/2020 Colonoscopy 07/2020--normal e xcept for 1 small tubular adenoma--no colitis, no dysplasia Neg. ETT in 05/2021 Surgical History Surgery Date(Month/Year) Perirectal abscess surgery Neck surgery for 3 discs--Dr. 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 Hampton at [facility] 06/2016 RUL lobectomy for cancer-Dr. Newman-no chemo/XRT- told that he is cancer-free 04/2018
--- OUTSIDE RECORDS SUMMARY | 2025-01-06 21:00 | XMS_ITS | Encounter Summary ---
Author Organization [facility] Address [address] [place] [address] Care Team Providers Care Asphalt Raker Name Role Phone Timoteo Escamilla MD Primary Care Provider [phone] Encounter Details Date Type Department Care Team (Late Contact Info) Description 06/27/2024 Lab Requisition [facility] - Main Lab [address] [facility] [place] [address] Khurram Zambrano PA [address] [place] [phone] Gross hematuria Social History Tobacco Use Types Packs/Day Years Used Date Smoking Tobacco: Never Assessed Sex and Gender Information Value Date Recorded Sex Assigned at Not on file Legal Sex Male 11:23 PM EST Gender Identity Not on file Sexual Orientation Not on file documented as of this encounter Plan of Treatment Upcoming Encounters Date Type Department Care Team (Late Contact Info) Description 07/02/2025 3:00 PM EDT Office Visit [facility] Hematology Oncology [address] [place] [address] Casey Llanes MD [address] [place] [address] documented as of this encounter Procedures Procedure Name Priority Date/Time Associated Diagnosis Comments AP OUTSIDE CONSULT Routine 06/25/2024 12 :00 AM EST Gross hematuria documented in this encounter Results * Anatomic pathology outside consult (06/25/2024 12:00 AM EST) Final Diagnosis A. Urine, Voided, ([id number]): Negative for high grade urothelial carcinoma. Results of UroVysion fluorescence in situ hybridization (FISH) testing: Although FISH was performed, insufficient non-obscured hybridization signals are present for evaluation and interpretation. 07/08/2024 4:42 PM EDT [facility] Clinical Information Gross hematuria R31.0 Urine Cytology/FISH (now) 07/08/2024 4:42 PM EDT [facility] Gross Description A. Urine, Voided, ([id number]): Received one ThinPrep slide for cytology and one ThinPrep slide for UroVysion FISH 07/08/2024 4:42 PM EDT [facility] Disclaimer Unless otherwise specified, all tissue is 10% NB formalin fixed and paraffin embedded. Technical pathology services provided [facility] [address] [facility] [address], [place] [address] (CLIA #[id number]/Amy Stringer MD, Brand Representative) 07/08/2024 4:42 PM EDT [facility] Tissue Urine specimen from urethra / Unknown 06/25/2024 06/27/2024 4:00 PM EST us Khurram DEGROOT LAB PATHOLOGY ORDERAB LES Final Result [facility] [address] [place] [address], documented in this encounter Visit Diagnoses Diagnosis Gross hematuria documented in this encounter Care Teams Asphalt Raker Relationship Specialty Start Date End Date Timoteo Escamilla MD [address] [place] [address] PCP - General 02/23/22 documented as of this encounter
--- OUTSIDE RECORDS SUMMARY | 2025-01-06 21:00 | XMS_ITS | Encounter Summary ---
Author Organization [facility] Address [address] [place] [address] Care Team Providers Care Steel Molder Name Role Phone Timoteo Escamilla MD Primary Care Provider [phone] Encounter Details Date Type Department Care Team (Late Contact Info) Description 06/25/2024 Lab Requisition [facility] - Main Lab 299 [facility] [place] [phone] Khurram Zambrano PA [address] [place] [phone] Urinary tract infection, site not specified; Gross [...] Description 07/02/2025 3:00 PM EDT Office Visit [facility] Hematology Oncology [address] [place] [phone] Casey Llanes MD [address] [place] [address] documented as of this encounter Procedures Procedure Name Priority Date/Time Associated Diagnosis Comments CULTURE URINE Routine 06/25/2024 1:15 PM EST Urinary tract infection, site not specified Gross hematuria documented in this encounter Results * Culture urine (06/25/2024 1:15 PM EST) Culture, Urine No growth 06/26/2024 2:25 PM EST [facility] Urine Urine specimen obtained by clean catch procedure / Unknown 06/25/2024 1:15 PM EST 06/25/2024 6:08 PM EST Khurram DEGR[facility] MICROBIOLOGY - NERAL ORDERABLES Final Result [facility] [address] [place] [address], documented in this encounter Visit Diagnoses Diagnosis Urinary tract infection, site not specified Gross hematuria documented in this encounter Care Teams Steel Molder Relationship Specialty Start Date End Date Timoteo Escamilla MD [address] [place] [phone] PCP - General 02/23/22 documented as of this encounter
== END 2025-01-06 16:03 | disposition home or self-care (01) ==
LOC: HO.HPS 15:39
PROVIDERS: PCP Hospitalist; Visit Provider Hospitalist
DX: J47.9 Bronchiectasis, uncomplicated (principal); J44.1 Chronic obstructive pulmonary disease with (acute) exacerbation; R06.09 Other forms of dyspnea; J84.10 Pulmonary fibrosis, unspecified; R91.8 Other nonspecific abnormal finding of lung field; Z85.118 Personal history of other malignant neoplasm of bronchus and lung
CPT/HCPCS: 99214; G2211

== ENCOUNTER → 2025-01-06 15:38 | Outpatient (BNVA) | payer MEDICARE, SELFPAY | PROVIDERS: PCP Hospitalist; Visit Provider Hospitalist | DX: J47.9 Bronchiectasis, uncomplicated (principal); J44.1 Chronic obstructive pulmonary disease with (acute) exacerbation; R06.09 Other forms of dyspnea; J84.10 Pulmonary fibrosis, unspecified; R91.8 Other nonspecific abnormal finding of lung field; Z85.118 Personal history of other malignant neoplasm of bronchus and lung | CPT/HCPCS: 99212 ==

== ENCOUNTER 2025-01-29 15:00 | Outpatient (AMB) | payer MEDICARE, SELFPAY ==
--- NOTE | 2025-01-29 15:08 | MHC.OFFVISCO ---
Intake Intake Visit Reasons: Anticoagulation Allergies bupropion (From Wellbutrin) Allergy (Intermediate, Verified 01/29/25 15:04) Nausea levofloxacin (From LEVAQUIN) Allergy (Intermediate, Verified 01/29/25 15:04) GI UPSET/ WEIGHT LOSS, anaphylaxis sulfamethoxazole (From Bactrim) Allergy (Intermediate, Verified 01/29/25 15:04) rash trimethoprim (From Bactrim) Allergy (Intermediate, Verified 01/29/25 15:04) rash ibuprofen Allergy (Mild, Verified 01/29/25 15:04) GI DISTRESS Medication List - Last Reconciled 01/29/25 by Millie Rodriguez RN acetaminophen 500 mg PO Q6H PRN albuterol sulfate 90 mcg/actuation 2 puffs PO Q6H PRN albuterol sulfate 2.5 mg (3 mL) continuous nebulization QID PRN atorvastatin 20 mg PO DAILY calcium citrate 500 mg (2 x 250 mg calcium) PO BID 90 days carvedilol 3.125 mg PO BID cholecalciferol (vitamin D3) 100 mcg (2 x 50 mcg (2,000 unit)) PO DAILY 90 days diltiazem HCl 120 mg PO BID doxycycline hyclate 100 mg PO BID [ENSURE / BOOST PO DAILY] ktywtoocykg-iaopifnqe-hadqwbxf 100-62.5-25 mcg (Trelegy Ellipta) 1 inh inhalation DAILY 30 days Lactobacillus rhamnosus GG (Culturelle) 1 cap PO DAILY fcozgjwlxnsf-cxxnugyp-snywlx 1 tab PO DAILY nebulizers As directed oxycodone 10 mg PO Q6H PRN oxycodone ER (OxyContin) 10 mg PO Q12H Oxygen Home Use As directed sertraline 25 mg PO BEDTIME simethicone (Gas Relief (simethicone)) 160 mg (2 x 80 mg) PO TID PRN 30 days sodium chloride 7% 4 mL inhalation BID theophylline ER 400 mg PO DAILY warfarin 2.5 mg See Protocol PO DAILY Held on 07/20/23. Instructions: Resume on 07/21/23. if coughing blood needs to continue holding coumadin and call the office Nursing Note INR: 2.2- in therapeutic range OF 2-3 Medications and supplements reviewed- NO CHANGES No changes in health, diet, medications, or supplements, Denies any signs and symptoms of bleeding or bruising or clotting. Bleeding, bruising, clotting discussed Nutritional guidance given Dose: 3.75mg x 2. 2.5mg x 5 F/U INR: 4 weeks Patient verbalizes understanding of instructions given Anti-Coag Initial Assessment Social Hx Patient Tobacco Use Status: Former Tobacco user Tobacco use type: Cigarette Alcohol intake frequency: former alcohol drinker Coding Level of Care Code Est Patient Level 1 Diagnoses Current use of anticoagulant therapy Z79.01 Results AMB INR Fingerstick AMB INR Fingerstick 2.2 Last Edit by Millie Rodriguez RN on 01/29/25 15:11 Assessment & Plan Assessment & Plan (1) Current use of anticoagulant therapy: Code(s): Z79.01 - halfway (current) use of 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
[2025-01-29 15:10] LABS: Prothrombin Time Whole Bld POC 26.1 sec (11.1-13.5); ~PT, ~INR - Anti Coag Clinic 2.2 (0.9-1.1)
== END 2025-01-29 15:14 | disposition home or self-care (01) ==
LOC: HO.ACS 15:00
PROVIDERS: PCP Hospitalist; Visit Provider Internal Medicine Medical Oncology
DX: Z79.01 Long term (current) use of anticoagulants (principal)

== ENCOUNTER → 2025-01-29 15:00 | Outpatient (BNVA) | payer MEDICARE, SELFPAY | PROVIDERS: PCP Hospitalist; Visit Provider Internal Medicine Medical Oncology | DX: Z86.73 Personal history of transient ischemic attack (TIA), and cerebral infarction without residual deficits (principal); Z79.01 Long term (current) use of anticoagulants; Z51.81 Encounter for therapeutic drug level monitoring | CPT/HCPCS: 85610; 99211 ==

== ENCOUNTER 2025-02-09 14:24 | Outpatient (REF) | payer MEDICARE, SELFPAY ==
--- OUTSIDE RECORDS SUMMARY | 2024-06-25 11:15 | XMS_ITS ---
Author Organization [facility] Address [address] [address] Care Team Providers Care Cigarette Machine Operator Name Role Phone CYN FAJARDO Primary Care Provider [phone] Olga Sarabia Unavailable [phone] Encounters Encounter Location Date Provider Diagnosis [facility] [address] [address] 06/25/2024 Olga Sarabia Plan Of Treatment Next Appt Details Provider Name:Olga saldivar, 02/12/2025 02:30:00 PM, [address] [place] [address], [place], [address], Progress Notes * Dirk MOMINDOB: [birth year] (74 yo M)Acc No.[id number]:06/25/2024 Progress Notes Patient: Dirk LOVING Appointment Provider: Tima Sarabia :1950 A ge:74 Y S ex:Male Date:06/25/2024 Address:[address] [facility] [id number] Pcp:CYN FAJARDO Subjective: * Chief Complaints: * * Medical History: Objective: * Vitals: Assessment: Plan: * Treatment: * Images: * Electronic signature of Marty Sarabia PA-C on 02/09/2025 at 02:31 PM EDT Sign off status: Pending * Appointment Provider: Tima Sarabia Date: 0 06/25/2024 Generated for Radha carbajal/Lalo/Dio on: 1 02:31 PM EDT
--- NOTE | ~2025-02-09 | MR_ITS ---
EXAMINATION: MR LUMBAR SPINE WITHOUT CONTRAST CLINICAL INFORMATION: Post laminectomy syndrome. COMPARISON: None available. TECHNIQUE: MRI of the lumbar spine was obtained using routine sequences without contrast. FINDINGS: Last rib-bearing vertebra labeled T12. There is a subtle bone marrow STIR signal in the superior endplate of L3. There is a 30% volume loss of the superior endplate of L3 without retropulsion. Multilevel superior endplate compression deformities without STIR signal abnormality involving L1, L4 and to a lesser extent T11, T12, and L5. Bone marrow inhomogeneity throughout the axial skeleton. Multilevel marginal osteophyte formation and disc desiccation. Grade 1 anterolisthesis L4-5. Grade 1 retrolisthesis L5-S1 and L3-4 levels. Conus medullaris ends at intervertebral disc L1-2 with normal signal. T12-L1: No herniated disc. No neuroforamina stenosis. L1-2: Broad-based disc bulging. Facet joint and ligamentum flavum hypertrophy. Reduced AP diameter of the thecal sac and bilateral neuroforamina narrowing. L2-3: Broad-based disc bulging. Facet joint ligamentum flavum hypertrophy. Bilateral neuroforamina narrowing encroaching the L3 exiting nerve roots. No gross central spinal canal stenosis. L3-4: Broad-based disc bulging. Facet joint and ligamentum flavum hypertrophy. Central spinal canal and bilateral neuroforamina stenosis encroaching likely compressing the neural elements. L4-5: Grade 1 anterolisthesis. Facet joint and ligamentum flavum hypertrophy resulting in CSF effacement of thecal sac central spinal canal and bilateral neuroforamina stenosis compressing the neural elements. L5-S1: Grade 1 retrolisthesis. Facet joint hypertrophy. Reduced AP diameter of the thecal sac. Bilateral neuroforamina stenosis encroaching the exiting nerve roots. No prevertebral compartment hematoma, mass or fluid collection. The infrarenal abdominal aorta diameter is 4.9 cm. There is a left lateral and posterior signal abnormality. Heterogeneous isointense soft tissue signal abnormality within the pelvis cavity.. MR/MR lumbar spine wo con IMPRESSION: Acute to subacute superior endplate compression deformity representing 30% volume loss without retropulsion, L3. Multilevel spondylosis resulting in grade 1 anterolisthesis L4-5 and central spinal canal and bilateral neuroforamina stenosis compressing the neural elements. Central spinal canal stenosis at L5-S1 and L3-4 encroaching the neural elements on a multifactorial basis. Bilateral neuroforamina stenosis at L3-4 and L5-S1 compressing the exiting nerve roots. 4.9 cm infrarenal abdominal aortic aneurysm with questionable plaque versus old hematoma. Recommend dedicated CT angiogram abdominal aorta. Questionable mass versus nondistended intestine, pelvic cavity. Recommend dedicated CT abdomen and pelvis.. Electronically signed by: Cem Doran MD 02/10/2025 08:31 AM EDT
--- OUTSIDE RECORDS SUMMARY | 2025-02-09 14:28 | XMS_ITS | Patient Health Record ---
Author Organization [facility] Address [address] [facility] [place] [address] Care Team Providers Care Machinist Apprentice Name Role Phone Ming Ahmet Primary Care Provider Unavailjonathan martínez Nohelia Dickinson Unavailable [phone] Allergies Allergen (clinical drug ingredient) Drug/Non Drug [...] Treatment Pending Test Test Name Order Date [id number] Destruction, -06/30/2015 [id number] Destruction, -08/03/2015 Insurance Providers Payer Name Payer Address Payer Phone Subscriber Number Group Number Insured Name Patient Relationship to Insured Coverage Start Date Coverage End Date [employer] Preferred [address] [place] [address] [id number] Dirk Pedro i Self - patient is the insured Medical (General) History Medical History History ICD Code Hypertension Stroke Measles Chicken pox Surgical History Surgery Date(Month/Year) cervical fusion 08/2012
--- OUTSIDE RECORDS SUMMARY | 2025-02-09 14:28 | XMS_ITS | Clinical Summary ---
Author Organization [facility] Address [address] [place] [address] Phone Care Team Providers Care Neuropsychology Service Director Name Role Phone Timoteo Escamilla MD Primary Care Provider [phone] Allergies Active Allergy Reactions Criticality Noted Date [...] carcinoma of r ight lung (CMS/HCC V24, CMS/HCC V28) 04/23/2022 Encounters Date Type Department Care Team Description 01/27/2025 3:30 PM EDT - 01/27/2025 11:59 PM EDT Hospital Encounter [facility] Radiation Oncology [address] [place] [phone] Abnormal weight loss (Primary Dx); Malnutrition following gastrointestinal surgery; Squamous cell carcinoma of right lung (CMS/HCC V24, CMS/[facility] V28) Discharge Disposition: Home or Self Care 01/24/2025 Telephone [facility] Radiation Oncology [address] [place] [phone] 01/23/2025 Telephone [facility] Radiation Oncology [address] [place] [phone] 01/13/2025 2:59 PM EDT - 01/13/2025 11:59 PM EDT Hospital Encounter [facility] Radiation Oncology [address] [place] [phone] Squamous cell carcinoma of right lung (CMS/HCC V24, CMS/HCC V28) (Primary Dx); Abnormal weight loss Discharge Disposition: Home or Self Care 01/02/2025 Telephone [facility] Radiation Oncology [address] [place] [address] [phone] 01/01/2025 3:00 PM EDT Office Visit [facility] Hematology Oncology [address] [place] [phone] Casey Llanes MD Squamous cell carcinoma of right lung (CMS/HCC V24, CMS/HCC V28) (Primary Dx) 12/09/[address] [place] [address] Timoteo Escamilla MD 11/18/[address] [place] [address] Timoteo Escamilla MD from Last 3 Months Immunizations Immunization Administration Dates Next Due Pfizer SARS-CoV-2 COVID-19, [...] EDT Inhaled Oxygen Concentration - - Weight 42.7 kg (94 lb 3.2 oz) 01/27/2025 3:00 PM EDT Height 162.6 cm (5' 4 ) 10/04/2023 3:32 PM EDT Body Mass Index 16.17 10/04/2023 3:32 PM EDT Plan of Treatment Upcoming Encounters Date Type Department Care Team (Late st Contact Info) Description 07/02/2025 3:00 PM EDT Office Visit [facility] Hematology Oncology [address] [place] [address] Casey Llanes MD [address] [place] [address] Health Maintenance Due Date Last Done Comments Colorectal Cancer Screening: Colonoscopy 1950 Zoster Vaccines (1 of 2) 02/15/1968 COVID-19 Vaccine (3 - Pfizer risk series) 09/20/2020 08/23/2020, 08/01/2020 Cholesterol Screening (Lipid Panel) 03/27/2022 Falls Risk Assessment 03/27/2022 Hepatitis C [...] Procedure Name Priority Date/Time Associated Diagnosis Comments VITAMIN D 25 HYDROXY Routine 01/27/2025 3:10 PM EDT Weight loss Malnutrition following gastrointestinal surgery PHOSPHORUS Routine 01/27/2025 3:10 PM EDT Weight loss MAGNESIUM Routine 01/27/2025 3:10 PM EDT Weight loss BASIC METABOLIC PANEL Routine 01/27/2025 3:10 PM EDT Weight loss from Last 3 Months Results * (ABNORMAL) Vitamin D 25 hydroxy (01/27/2025 3:10 PM EDT) Vit D, 25-Hydroxy 24.4(L) 30.0 - 80.0 ng/mL LAB CHEMISTRY METHOD 01/27/2025 5:43 PM EDT [facility] Blood Venous blood specimen / Unknown Venipuncture / Unknown 01/27/2025 3:10 PM EDT 01/27/2025 4:46 PM EDT us Casey Llanes MD LAB BLOOD ORDERABLES Final Result Performing Organization Address City/[facility]/ZIP Co de Phone Number [facility] [address] [place] [address], [place] [phone] * Phosphorus (01/27/2025 3:10 PM EDT) Pathologist [facility] Phosphorus 4.1 2.5 - 4.5 mg/dL LAB CHEMISTRY METHOD 01/27/2025 5:07 PM EDT [facility] Blood Venous blood specimen / Unknown Venipuncture / Unknown 01/27/2025 3:10 PM EDT 01/27/2025 4:46 PM EDT us Casey Llanes MD LAB BLOOD ORDERABLES Final Result [facility] [address] [place] [address], [place] [phone] * Magnesium (01/27/2025 3:10 PM EDT) Magnesium 1.9 1.9 - 2.6 mg/dL LAB CHEMISTRY METHOD 01/27/2025 5:[address] [facility] Blood Venous blood specimen / Unknown Venipuncture / Unknown 01/27/2025 3:10 PM EDT 01/27/2025 4:46 PM EDT Casey Llanes MD LAB BLOOD ORDERABLES Final Result [facility] [address] [place] [address], * (ABNORMAL) Basic metabolic panel (01/27/2025 3:10 PM EDT) Sodium 140 133 - 145 mmol/L LAB CHEMISTRY METHOD 01/27/2025 5:[address] [facility] Potassium 4.1 3.5 - 5.5 mmol/L LAB CHEMISTRY METHOD 01/27/2025 5:[address] [facility] Chloride 105 96 - 110 mmol/L LAB CHEMISTRY METHOD 01/27/2025 5:[address] [facility] CO2 31 21 - 32 mmol/L LAB CHEMISTRY METHOD 01/27/2025 5:[address] [facility] Anion Gap 4 3 - 11 LAB CHEMISTRY METHOD 01/27/2025 5:[address] [facility] Glucose 115(H) 70 - 100 mg/dL LAB CHEMISTRY METHOD 01/27/2025 5:[address] [facility] BUN 15 5 - 25 mg/dL LAB CHEMISTRY METHOD 01/27/2025 5:[address] [facility] Creatinine 1.01 0.70 - 1.30 mg/dL LAB CHEMISTRY METHOD 01/27/2025 5:[address] [facility] eGFR 78 >=60 mL/min/1. 73m2 LAB CHEMISTRY METHOD 01/27/2025 5:07 PM EDT [facility] Comment:Calculation based on the Chronic Kidney Disease Epidemiology Collaboration (CKD-EPI) equation refit without adjustment for race. BUN/Creatinine Ratio 14.9 LAB CHEMISTRY METHOD 01/27/2025 5:07 PM EDT [facility] Calcium 9.0 8.5 - 10.5 mg/dL LAB CHEMISTRY METHOD 01/27/2025 5:07 PM EDT [facility] Blood Venous blood specimen / Unknown Venipuncture / Unknown 01/27/2025 3:10 PM EDT 01/27/2025 4:46 PM EDT us Casey Llanes MD LAB BLOOD ORDERABLES Final Result [facility] [address] [place] [address], from Last 3 Months Insurance [employer] Care Teams Neuropsychology Service Director Relationship Specialty Start Date End Date Timoteo Escamilla MD [address] [place] [phone] PCP - General 02/23/22
--- OUTSIDE RECORDS SUMMARY | 2025-02-09 14:28 | XMS_ITS | Clinical Summary ---
Author Organization [facility] Address [address] [place] [address] Care Team Providers Care Electric Meter Repairer Apprentice Name Role Phone Timoteo Escamilla MD Primary Care Provider [phone] Allergies Active Allergy Reactions Criticality Noted Date [...] age to complete this topic Care Teams Electric Meter Repairer Apprentice Relationship Specialty Start Date End Date Timoteo Escamilla MD [address] [place] [phone] PCP - General Internal Medicine 02/23/22
--- OUTSIDE RECORDS SUMMARY | 2025-02-09 14:31 | XMS_ITS | Encounter Summary ---
Author Organization [facility] Address [address] [place] [address] Care Team Providers Care Embroidery Assistant Name Role Phone Timoteo Escamilla MD Primary Care Provider [phone] Encounter Details Date Type Department Care Team (Late Contact Info) Description 06/25/2024 Lab Requisition [facility] - Main Lab [address] [facility] [place] [phone] Khurram Zambrano PA [address] [place] [phone] Urinary tract infection, site not specified; Gross [...] Description 07/02/2025 3:00 PM EDT Office Visit [facility] Hematology Oncology [address] [place] [phone] Casey Llanes MD [address] [place] [address] documented as of this encounter [...] Final Result [facility] [address] [place] [address], documented in this encounter Visit Diagnoses Diagnosis Urinary tract infection, site not specified Gross hematuria documented in this encounter Care Teams Embroidery Assistant Relationship Specialty Start Date End Date Timoteo Escamilla MD [address] [place] [phone] PCP - General 02/23/22 documented as of this encounter
--- OUTSIDE RECORDS SUMMARY | 2025-02-09 14:31 | XMS_ITS | Encounter Summary ---
Author Organization [facility] Address [address] [place] [address] Care Team Providers Care Electronic Security Specialist Name Role Phone Timoteo Escamilla MD Primary Care Provider [phone] Encounter Details Date Type Department Care Team (Late Contact Info) Description 06/27/2024 Lab Requisition [facility] - Main Lab [address] [facility] [place] [address] Khurram Zambrano PA [address] [place] [phone] Gross hematuria Social History Tobacco Use Types [...] Description 07/02/2025 3:00 PM EDT Office Visit [facility] Hematology Oncology [address] [place] [address] Casey Llanes MD [address] [place] [address] documented as of this encounter Procedures Procedure Name Priority Date/Time Associated Diagnosis Comments AP OUTSIDE CONSULT Routine 06/25/2024 12 :00 AM EST Gross hematuria documented in this encounter Results * Anatomic pathology outside consult (06/25/2024 12:00 AM EST) Final Diagnosis A. Urine, Voided, ([id number]): Negative for high grade urothelial carcinoma. Results [...] CENTER LAB Gross Description A. Urine, Voided, ([id number]): Received one ThinPrep slide for cytology and one ThinPrep slide for UroVysion FISH 07/08/2024 4:42 PM EDT [facility] Disclaimer Unless otherwise specified, all tissue is 10% NB formalin fixed and paraffin embedded. Technical pathology services provided by [facility] [address] [facility] [address], [place] [address] (CLIA #[id number]/Amy Stringer MD, Gym Instructor) 07/08/2024 4:42 PM EDT [facility] Tissue Urine specimen from urethra / Unknown 06/25/2024 06/27/2024 4:00 PM EST us Khurram DEGROOT LAB PATHOLOGY ORDERAB LES Final Result [facility] [address] [place] [address], documented in this encounter Visit Diagnoses Diagnosis Gross hematuria documented in this encounter Care Teams Electronic Security Specialist Relationship Specialty Start Date End Date Timoteo Escamilla MD [address] [place] [address] PCP - General 02/23/22 documented as of this encounter
--- OUTSIDE RECORDS SUMMARY | 2025-02-09 14:31 | XMS_ITS | Patient Health Record ---
Author Organization [facility] Address [address] [place] [address] Care Team Providers Care Software Applications Specialist Name Role Phone SCOTTY CYN Primary Care Provider Sarwat Lopez [phone] Allergies Allergen (clinical drug ingredient) Drug/Non Drug [...] Active Albuterol Not-Taking Warfarin Sodium 5 MG Oral; Duration: 90 Active Creon 15656 UNIT take 1 15-30 minutes before each meal and 1 during each meal Orally TID; Duration: 30 days 09/23/2016 Not-Takin g oxyCODONE HCl 15 MG 1 tablet as needed Orally every 6 hrs Active Testosterone Active ProAir HFA Active Daliresp 250 MCG 2 tablets Orally Onc e a day; Duration: 30 day(s) Active ProAir RespiClick Ac tive Albuterol Sulfate (2.5 MG/3ML) 0.083% 3 ml as needed Inhalation every 6 hrs Active Theophylline ER 400 MG TAKE 1/2 TABLET B Y MOUTH DAILY Oral; Duration: 90 Active Trelegy Ellipta 100-62.5-25 MCG/INH 1 puff Inhalation Once a day Active Atorvastatin Calcium 40 MG 1 tablet Orally Once a day Active Multivitamin - 1 tablet Orally Once a day; Duration: 30 day(s) Active Dicyclomine HCl 10 MG TAKE 1 TO 2 CAPSUL ES BY MOUTH EVERY 4 TO 6 HOURS NEEDED FOR ABDOMINAL CRAMPS/LOOSE STOOLS, MAY TAKE BEFORE A MEAL WELL FOR 30 DAYS; Duration: 30 Not-Taking dilTIAZem HCl 120 MG as directed Orally Active Mesalamine 800 MG TAKE 1 TABLET BY THREE TIMES DAILY; Duration: 30 Not-Taking Calcium Citrate 950 (200 Ca) MG 1 tablet Orally Once a day; Duration: 30 day(s) Active Advair Diskus 500-50 MCG/DOSE Inhalation; Duration: 30 Not-Taking Immunizations Vaccine Route Administration Date [...] Problem Screening for malignant neoplasm of colon (038131369) Encounter for screening for malignant neoplasm of colon (Z12.11) Active confirmed Problem Diarrhea (48524475) Diarrhea (R19.7) Active confirmed Problem Weight loss (549844145) Weight loss (R63.4) Active confirmed Problem Irritable bowel syndrome with diarrhea (824928829) Irritable bowel syndrome with diarrhea (K58.0) Active confirmed Problem Flatulence (392062240) Flatulence (R14.3) Active confirmed Problem Constipation (70322313) Constipation, unspecified constipation type (K59.00) Active confirmed Problem Abdominal pain (30181827) Abdominal cramps (R10.9) Active confirmed Problem Ulcerative colitis (18767284) Other ulcerative colitis without complication (K51.80) Active confirmed Problem Anemia (865524783) Anemia, unspecified type (D64.9) Active confirmed Problem Ulcerative colitis (23619852) Ulcerative colitis (K51.90) Active confirmed Problem Diarrhea (11218599) Diarrhea, unspecified type (R19.7) Active confirmed Problem Chronic pancreatitis (750107106) Chronic pancreatitis, unspecified pancreatitis type (K86.1) Active confirmed Problem Clostridium difficile diarrhea (6329467407555) Clostridium difficile diarrhea (A04.72) Active confirmed Problem Clostridioides difficile infection (050026261) Clostridioides difficile infection (A49.8) Active confirmed Plan [...] End Date [employer] P[employer] [address] [place] [address] [id number] LEIGHTON MELGAR Self - patient is the [...] volvulus--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 Hampton at [facility] 06/2016 RUL lobectomy for cancer-Dr. Newman-no chemo/XRT- told that he is cancer-free 04/2018
== END 2025-02-09 14:25 | disposition home or self-care (01) ==
LOC: HO.MRI 14:24
PROVIDERS: PCP Hospitalist; Visit Provider Nurse Practitioner Women's Health
DX: S32.030D Wedge compression fracture of third lumbar vertebra, subsequent encounter for fracture with routine healing (principal); S32.010D Wedge compression fracture of first lumbar vertebra, subsequent encounter for fracture with routine healing
CPT/HCPCS: 72148

== ENCOUNTER → 2025-02-09 14:44 | Outpatient (BNV) | payer MEDICARE, SELFPAY | PROVIDERS: PCP Hospitalist; Visit Provider Radiology Diagnostic Radiology | DX: M43.16 Spondylolisthesis, lumbar region (principal) | CPT/HCPCS: 72148 ==

== ENCOUNTER 2025-02-26 14:48 | Outpatient (AMB) | payer MEDICARE, SELFPAY ==
--- OUTSIDE RECORDS SUMMARY | 2024-06-25 10:15 | XMS_ITS ---
Author Organization [facility] Address [address] [address] Care Team Providers Care Pharmacy Technician Trainee Name Role Phone CYN FAJARDO Primary Care Provider Olga Sarabia Unavailable [phone] Encounters Encounter Location Date Provider Diagnosis [facility] [address] [address] 06/25/2024 Olga Sarabia Plan Of Treatment Next Appt Details Provider Name:Olga saldivar, 08/12/2025 03:00:00 PM, [address] [place] [address], [place], [address], Progress Notes * Dirk MOMINDOB: [birth year] (75 yo M)Acc No.[id number]:06/25/2024 Progress Notes Patient: Dirk LOVING Appointment Provider: Tima Sarabia :1950 A ge:74 Y S ex:Male Date:06/25/2024 Address:[address] [facility] [place]-[phone] Pcp:CYN FAJARDO Subjective: * Chief Complaints: * * Medical History: Objective: * Vitals: Assessment: Plan: * Treatment: * Images: * Electronic signature of Marty Sarabia PA-C on 02/26/2025 at 05:55 PM EST Sign off status: Pending * Appointment Provider: Tima Sarabia Date: 0 06/25/2024 Generated for Radha carbajal/Lalo/Dio on: 1 04/28/2024 05:55 PM EST
[2025-02-26 15:00] LABS: Prothrombin Time Whole Bld POC 23.3 sec (11.1-13.5); ~PT, ~INR - Anti Coag Clinic 1.9 (0.9-1.1)
--- NOTE | 2025-02-26 15:01 | MHC.OFFVISCO ---
Intake Intake Visit Reasons: Anticoagulation Allergies bupropion (From Wellbutrin) Allergy (Intermediate, Verified 02/26/25 14:54) Nausea levofloxacin (From LEVAQUIN) Allergy (Intermediate, Verified 02/26/25 14:54) GI UPSET/ WEIGHT LOSS, anaphylaxis sulfamethoxazole (From Bactrim) Allergy (Intermediate, Verified 02/26/25 14:54) rash trimethoprim (From Bactrim) Allergy (Intermediate, Verified 02/26/25 14:54) rash ibuprofen Allergy (Mild, Verified 02/26/25 14:54) GI DISTRESS Medication List - Last Reconciled 02/26/25 by Nova Tan RN acetaminophen 500 mg PO Q6H PRN albuterol sulfate 90 mcg/actuation 2 puffs PO Q6H PRN albuterol sulfate 2.5 mg (3 mL) continuous nebulization QID PRN atorvastatin 20 mg PO DAILY calcium citrate 500 mg (2 x 250 mg calcium) PO BID 90 days carvedilol 3.125 mg PO BID cholecalciferol (vitamin D3) 100 mcg (2 x 50 mcg (2,000 unit)) PO DAILY 90 days diltiazem HCl 120 mg PO BID doxycycline hyclate 100 mg PO BID [ENSURE / BOOST PO DAILY] iqvwrykzdyg-vcjdiyluk-pddkywad 100-62.5-25 mcg (Trelegy Ellipta) 1 inh inhalation DAILY 30 days Lactobacillus rhamnosus GG (Culturelle) 1 cap PO DAILY pkoicctowdaj-ckutvntu-taymaw 1 tab PO DAILY nebulizers As directed oxycodone 10 mg PO Q6H PRN oxycodone ER (OxyContin) 10 mg PO Q12H Oxygen Home Use As directed sertraline 25 mg PO BEDTIME simethicone (Gas Relief (simethicone)) 160 mg (2 x 80 mg) PO TID PRN 30 days sodium chloride 7% 4 mL inhalation BID theophylline ER 400 mg PO DAILY warfarin 2.5 mg See Protocol PO DAILY Held on 07/20/23. Instructions: Resume on 07/21/23. if coughing blood needs to continue holding coumadin and call the office Nursing Note NO MCP,SOB,DIET/MED CHANGES,FALLS OR SX OF BLEEDING. BOOST TODAY THEN RESUME USUAL DOSE AND FOLLOW-UP IN 4WEEKS. GOOD UNDERSTANDING OF DOSING INSTR. Anti-Coag Initial Assessment Social Hx Patient Tobacco Use Status: Former Tobacco user Tobacco use type: Cigarette Alcohol intake frequency: former alcohol drinker Coding Level of Care Code Est Patient Level 1 Diagnoses Current use of anticoagulant therapy Z79.01 Results AMB INR Fingerstick AMB INR Fingerstick 1.9 Last Edit by Noav Tan RN on 02/26/25 15:01 Assessment & Plan Assessment & Plan (1) Current use of anticoagulant therapy: Code(s): Z79.01 - nursing home (current) use of 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
--- OUTSIDE RECORDS SUMMARY | 2025-02-26 17:55 | XMS_ITS | Encounter Summary ---
Author Organization [facility] Address [address] [place] [address] Care Team Providers Care Servicer Name Role Phone Timoteo Escamilla MD Primary Care Provider [phone] Encounter Details Date Type Department Care Team (Late Contact Info) Description 06/27/[address] [facility] - Main Lab [address] [facility] [place] [address] Khurram Zambrano PA [address] [place] [address] Gross hematuria Social History Tobacco [...] Department Care Team (Late Contact Info) Description 03/10/2025 3:00 PM EST Appointment [facility] Radiation Oncology [address] [place] [address] 07/02/2025 3:00 PM EDT Office Visit [facility] Hematology Oncology [address] [place] [address] Casey Llanes MD [address] [place] [address] documented as of this encounter Procedures Procedure Name Priority Date/Time Associated Diagnosis Comments AP OUTSIDE CONSULT Routine 06/25/2024 12 :00 AM EST Gross hematuria documented in this encounter Results * Anatomic pathology outside consult (06/25/2024 12:00 AM EST) Final Diagnosis A. Urine, Voided, ([id number]): Negative for high grade urothelial carcinoma. Results of UroVysion fluorescence in situ hybridization (FISH) testing: Although FISH was performed, insufficient non-obscured hybridization signals are present for evaluation and interpretation. 07/08/2024 4:42 PM EDT [facility] Clinical Information Gross hematuria R31.0 Urine Cytology/FISH (now) 07/08/2024 4:42 PM EDT [facility] Gross Description A. Urine, Voided, ([id number]): Received one ThinPrep slide for cytology and one ThinPrep slide for UroVysion FISH 07/08/2024 4:42 PM EDT [facility] Disclaimer Unless otherwise specified, all tissue is 10% NB formalin fixed and paraffin embedded. Technical pathology services provided by [facility] at [address], [place] [address] (CLIA #[id number]/Amy Stringer MD, Early Childhood Aide Classroom) 07/08/2024 4:42 PM EDT [facility] Tissue Urine specimen from urethra / Unknown 06/25/2024 06/27/2024 4:00 PM EST us Khurram DEGROOT [facility] PATHOLOGY ORDERAB LES Final Result [facility] [address] [place] [address], documented in this encounter Visit Diagnoses Diagnosis Gross hematuria documented in this encounter Care Teams Servicer Relationship Specialty Start Date End Date Timoteo Escamilla MD [address] [place] [address] PCP - General 02/23/22 documented as of this encounter
--- OUTSIDE RECORDS SUMMARY | 2025-02-26 17:55 | XMS_ITS | Clinical Summary ---
Author Organization [facility] Address [address] [place] [address] Phone Care Team Providers Care Building Code Administrator Name Role Phone Timoteo Escamilla MD Primary Care Provider [phone] Allergies Active Allergy Reactions Criticality Noted Date [...] carcinoma of r ight lung (CMS/HCC V24, [facility] V28) 04/23/2022 Encounters Date Type Department Care Team Description 02/11/2025 Telephone [facility] Radiation Oncology [address] [place] [phone] 01/27/2025 3:30 PM EDT - 01/27/2025 11:59 PM EDT Hospital Encounter [facility] Radiation Oncology [address] [place] [address] [phone] Abnormal weight loss (Primary Dx); Malnutrition following gastrointestinal surgery; Squamous cell carcinoma of right lung ([facility] V24, [facility] V28) Discharge Disposition: Home or Self Care 01/24/2025 Telephone [facility] Radiation Oncology [address] [place] [address] [phone] 01/23/2025 Telephone [facility] Radiation Oncology [address] [place] [phone] 01/13/2025 2:59 PM EDT - 01/13/2025 11:59 PM EDT Hospital Encounter [facility] Radiation Oncology [address] [place] [address] [phone] Squamous cell carcinoma of right lung (CMS/HCC V24, CMS/HCC V28) (Primary Dx); Abnormal weight loss Discharge Disposition: Home or Self Care 01/02/2025 Telephone [facility] Radiation Oncology [address] [place] [address] [phone] 01/01/2025 3:00 PM EDT Office Visit [facility] Hematology Oncology [address] [place] [phone] Casey Llanes MD Squamous cell carcinoma of right lung (CMS/HCC V24, CMS/HCC V28) (Primary Dx) 12/09/2024 Telephone [facility] Cardiology [address] [address] Timoteo Escamilla MD from Last 3 [...] kg (94 lb 3.2 oz) 01/27/2025 3:00 P M EDT Height 162.6 cm (5' 4 ) 10/04/2023 3:32 PM EDT Body Mass Index 16.17 10/04/2023 3:32 PM EDT Plan of Treatment Upcoming Encounters Date Type Department Care Team (Late st Contact Info) Description 03/10/2025 3:00 PM EST Appointment [facility] Radiation Oncology [address] [place] [address] [phone] 07/02/2025 3:00 PM EDT Office Visit [facility] Hematology Oncology [address] [place] [address] Casey Llanes MD [address] [place] [address] Health Maintenance Due Date Last [...] D 25 hydroxy (01/27/2025 3:10 PM EDT) [facility] Vit D, 25-Hydroxy 24.4(L) 30.0 - 80.0 ng/mL LAB CHEMISTRY METHOD 01/27/2025 5:43 PM EDT [facility] Blood Venous blood specimen / Unknown Venipuncture / Unknown 01/27/2025 3:10 PM EDT 01/27/2025 4:46 PM EDT us Casey Llanes MD LAB BLOOD ORDERABLES Final Result Performing Organization Address [facility] de Phone Number [facility] [address] [place] [address], [place] [phone] * Phosphorus (01/27/2025 3:10 PM EDT) [facility] Phosphorus 4.1 2.5 - 4.5 mg/dL LAB CHEMISTRY METHOD 01/27/2025 5:07 PM EDT [facility] Blood Venous blood specimen / Unknown Venipuncture / Unknown 01/27/2025 3:10 PM EDT 01/27/2025 4:46 PM EDT us Casey Llanes MD LAB BLOOD ORDERABLES Final Result [facility] [address] [place] [address], [place] [phone] * Magnesium (01/27/2025 3:10 PM EDT) [facility] Magnesium 1.9 1.9 - 2.6 mg/dL LAB CHEMISTRY METHOD 01/27/2025 5:07 PM EDT [facility] Blood Venous blood specimen / Unknown Venipuncture / Unknown 01/27/2025 3:10 PM EDT 01/27/2025 4:46 PM EDT Casey Llanes MD LAB BLOOD ORDERABLES Final Result [facility] [address] [place] [address], [place] [phone] * (ABNORMAL) Basic metabolic panel (01/27/2025 3:10 PM EDT) [facility] Sodium 140 133 - 145 mmol/L LAB CHEMISTRY METHOD 01/27/2025 5:07 PM [facility] Potassium 4.1 3.5 - 5.5 mmol/L LAB CHEMISTRY METHOD 01/27/2025 5:07 PM [facility] Chloride 105 96 - 110 mmol/L LAB CHEMISTRY METHOD 01/27/2025 5:07 PM [facility] CO2 31 21 - 32 mmol/L LAB CHEMISTRY METHOD 01/27/2025 5:07 PM [facility] Anion Gap 4 3 - 11 LAB CHEMISTRY METHOD 01/27/2025 5:07 PM [facility] Glucose 115(H) 70 - 100 mg/dL LAB CHEMISTRY METHOD 01/27/2025 5:07 PM [facility] BUN 15 5 - 25 mg/dL LAB CHEMISTRY METHOD 01/27/2025 5:07 PM [facility] Creatinine 1.01 0.70 - 1.30 mg/dL LAB CHEMISTRY METHOD 01/27/2025 5:07 PM EDT [facility] eGFR 78 >=60 mL/min/1. 73m2 LAB CHEMISTRY METHOD 01/27/2025 5:07 PM EDT [facility] Comment:Calculation based on the Chronic Kidney Disease Epidemiology Collaboration (CKD-EPI) equation refit without adjustment for race. BUN/Creatinine Ratio 14.9 LAB CHEMISTRY METHOD 01/27/2025 5:07 PM EDT [facility] Calcium 9.0 8.5 - 10.5 mg/dL LAB CHEMISTRY METHOD 01/27/2025 5:07 PM EDT [facility] Blood Venous blood specimen / Unknown Venipuncture / Unknown 01/27/2025 3:10 PM EDT 01/27/2025 4:46 PM EDT us Casey Llanes MD LAB BLOOD ORDERABLES Final Result [facility] [address] [place] [address], from Last 3 Months Insurance [employer] Care Teams Building Code Administrator Relationship Specialty Start Date End Date Timoteo Escamilla MD [address] [place] [address] PCP - General 02/23/22
--- OUTSIDE RECORDS SUMMARY | 2025-02-26 17:55 | XMS_ITS | Patient Health Record ---
Author Organization [facility] Address [address] [place] [address] Care Team Providers Care Director Career Services Name Role Phone CYN FAJARDO Primary Care Provider Olga Sarabia Unavailable [phone] Allergies Allergen (clinical drug ingredient) Drug/Non Drug Allergy documented on EMR Reaction Allergy Type Onset Date Status amoxicillin / clavulanate Augmentin hives Drug Allergy Active levofloxacin Levofloxacin anaphylaxis Drug Allergy Active Motrin Unknown Drug Allergy Active Wellbutrin Unknown Drug Allergy Active Results Component Value Reference Range Notes PHOSPHORUS Reviewed date:01/28/2025 12:00:24 PM Interpretation: Performing Lab: Notes/Report: Phosphorus 4.1 2.5-4.5 mg/dL MAGNESIUM Reviewed date:01/28/2025 12:00:29 PM Interpretation: Performing Lab: Notes/Report: Magnesium 1.9 1.9-2.6 mg/dL VITAMIN D 25 HYDROXY Reviewed date:01/28/2025 12:00:06 PM Interpretation: Performing Lab: Notes/Report: Vit D, 25-Hydroxy 24.4 30.0-80.0 ng/mL BASIC METABOLIC PANEL Reviewed date:01/28/2025 12:00:18 PM Interpretation: Performing Lab: Notes/Report: Sodium 140 133-145 mmol/L Potassium 4.1 3.5-5.5 mmol/L Chloride 105 96-110 mmol/L CO2 31 21-32 mmol/L Anion Gap 4 3-11 Glucose 115 70-100 mg/dL BUN 15 5-25 mg/dL Creatinine 1.01 0.70-1.30 mg/dL eGFR 78 >=60 mL/min/1.73m2 Calculati on based on the Chronic Kidney Disease Epidemiology Collaboration (CKD-EPI) equation refit without adjustment for race. BUN/Creatinine Ratio 14.9 Calcium 9.0 8.5-10.5 mg/dL AP OUTSIDE CONSULT Reviewed date:07/08/2024 05:03:14 PM Interpretation: Performing Lab: Notes/Report: Gross hematuria R31.0 Urine Cytology/FISH (now) Urine Cytology/FISH (now) Final Diagnosis A. Urine, Voided, ([id number]): Negative for high grade urothelial carcinoma. Results of UroVysion fluorescence in situ hybridization (FISH) testing: Although FISH was performed, insufficient non-obscured hybridization signals are present for evaluation and interpretation. Gross Description A. Urine, Voided, ([id number]): Received one ThinPrep slide for cytology and one ThinPrep slide for UroVysion FISH Disclaimer Unless otherwise specified, all tissue is 10% NB formalin fixed and paraffin embedded. Technical pathology services provided by [facility] at [address] [place] [address] [address], [place] [address] (CLIA #[id number]/Rachel Stringer MD, Yeast Washer) Clinical Information Gross hematuria R31.0 CULTURE URINE Reviewed date:06/26/2024 04:41:22 PM Interpretation: Performing Lab: Notes/Report: Culture, Urine No growth Reason For Referral Reason A Fib- Dr Mike solorio evaluate and treat Diagnosis 1 Atrial fibrillation (I48.91) Referral Organization [facility] Referring Provider First Name CYN Referring Provider Last Name [facility] Referring Provider Speciality Internal M edicine Referred Provider Specialty Cardiology General Notes Please call the tha ent to schedule the appointment, Encounter created and SMS sent to the pt.Kosta Charmain 11/15/2024 03:11:37 PM > Referral Priority Routine Medications Medication SIG (Take, Route, Frequency, Duration) Notes Start Date End Date Status Cardizem CD 240 MG 1 capsule Orally Onc e a day Active Anoro Ellipta 62.5-25 MCG/INH 1 puff Inhalation Once a day Unknown ProAir HFA 108 (90 Base) MCG/ACT 2 puffs as needed Inhalation every 6 hrs; Duration: 30 days Active Enoxaparin Sodium 60 MG/0.6ML as directed Subcutaneous twice daily; Duration: 5 days 09/05/2018 Unknown oxyCODONE HCl 15 MG 1 tablet Orally ever y 6 hrs PSSP Active Metoprolol Tartrate 25 MG 1 tablet with food Orally Twice a day; Duration: 90 Unknown Centrum Silver - as directed Orally o ne daily Active Pepto-Bismol As needed Unknown Warfarin Sodium 2.5 MG TAKE 1 TABLET BY MOUTH EVERY DAY Once a day; Duration: 90 days Active ProAir RespiClick 108 (90 Base) MCG/ACT 1-2 puff as needed Inhalation every 4 hrs; Duration: 30 days Active Sertraline HCl 25 MG TAKE 2 TABLETS BY M OUTH EVERY DAY; Duration: 30 days Active Amoxicillin 500 MG 1 capsule Orally valentin ry 8 hrs; Duration: 5 days 05/12/2023 Unknown Vitamin D2 2000 UNIT 1 tablet Orally Onc e a day Active fentaNYL 12 MCG/HR 1 patch to skin Transdermal PSSP Unknown Calcium Citrate 250 MG 1 tablet Orally Once a day Active Zofran 4 MG 1 tablet Orally bid as needed; Duration: 14 days 05/17/2019 Unknown Trelegy Ellipta 100-62.5-25 MCG/INH 1 puff Inhalation Once a day Active predniSONE 20 MG as directed Orally O nce a day; Duration: 30 days 01/07/2021 Unknown Testim 50 MG/5GM (1%) 1 packet to skin i n the morning Transdermal Once a day; Duration: 30 days 08/11/2021 Unknown Megestrol Acetate 40 MG 1 tablet Orally Once a day; Duration: 30 days 02/24/2023 Unknown Dicyclomine HCl 10 MG 1-2 capsules Orall y every 4-6 hours Unknown Mesalamine 800 MG 1 tablet Orally twic e a day Unknown Lovenox 60 MG/0.6ML 60 mg Injection daily; Duration: 5 days take it every day in the morning subcutaneous. Do not take on the day of procedure 08/11/2023 Not-Taking Atorvastatin Calcium 40 MG 1 tablet Orally Once a day Not-Taking Mucinex 600 MG 1 tablet as needed Orally every 12 hrs Active Theophylline ER 400 MG 1 tablet Orally Once a day Active predniSONE 20 MG 1 tablet Orally Once a day; Duration: 7 days 04/28/2023 Unknown Benzonatate 100 MG 1 capsule as needed Orally Three times a day; Duration: 7 days 04/28/2023 Unknown Azithromycin 250 MG 1 tablet Orally 2 tablets on the first day, then 1 tablet daily; Duration: 5 days 04/28/2023 Not-Taki ng Doxycycline Not-Taki ng dilTIAZem HCl 120 MG TAKE 1 TABLET BY [facility] TWICE DAILYasDIRECTED twice a day; Duration: 54 days Active Carvedilol 3.125 MG 1 tablet with food Orally Twice a day; Duration: 30 days Active Immunizations Vaccine Route Administration Date Status Comme nts COVID 19 Pfizer Unknown 08/01/2020 Administered COVID 19 Pfizer Unknown 08/23/2020 Administered Flu High-Dose IM Intramuscular 02/24/2023 Administered Fluzone High-Dose Unknown 03/23/2022 Administered Fluzone High-Dose IM Intramuscular 02/12/2025 Administered High Dose Fluzone +65 Unknown 03/03/2016 Administered High Dose Fluzone +65 IM Intramuscular 03/23/2022 Administ ered Influenza, high dose seasonal Unknown 05/16/2017 Administered Influenza, high dose seasonal IM Intramuscular 01/28/2019 Administered Pneumococcal polysaccharide PPV23 Unknown 01/16/2014 Administered Pneumococcal polysaccharide PPV23 Unknown 03/03/2016 Administered Prevnar 20 Unknown 03/07/2024 Administered Td (adult) preservative free Unknown 08/22/2013 Administered Td (adult), absorbed Unknown 08/30/2013 Administered [...] Risk Notes Problem Malignant tumor of lung (954141295) Malignant neoplasm of unspecified part of unspecified bronchus or lung (C34.90) Active confirmed Problem 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 Problem Generalized anxiety disorder (37298161) Generalized anxiety disorder (F41.1) Active confirmed Problem Atrial fibrillation (44486404) Unspecified atrial fibrillation (I48.91) Active confirmed Problem Cerebral infarction (205418986) Cerebral infarction, unspecified (I63.9) Active confirmed Problem Occlusion and stenosis of multiple and bilateral cerebral arteries (195259412) Occlusion and stenosis of bilateral carotid arteries (I65.23) Active confirmed Problem Chronic obstructive pulmonary disease (68154301) Chronic obstructive pulmonary disease, unspecified (J44.9) Active confirmed Problem Chronic respiratory failure (75403957) Chronic respiratory failure with hypoxia (J96.11) Active confirmed Problem Localized infection of skin AND/OR subcutaneous tissue (272023468) Local infection of the skin and subcutaneous tissue, unspecified (L08.9) Active confirmed Problem Cervical radiculopathy (68379965) Radiculopathy, cervical region (M54.12) Active confirmed Problem Muscle weakness (44106207) Muscle weakness (generalized) (M62.81) Active confirmed Problem Solitary pulmonary nodule (109678230) Solitary pulmonary nodule (R91.1) Active confirmed Problem History of excision of intestinal structure (705540671) Acquired absence of other specified parts of digestive tract (Z90.49) Active confirmed Problem Abdominal aortic aneurysm without rupture (83339135) Abdominal aortic aneurysm, without rupture (I71.4) Active confirmed Problem Essential hypertension (01456632) Essential (primary) hypertension (I10) Active confirmed Problem Intestinal obstruction (12679845) Unspecified intestinal obstruction, unspecified as to partial versus complete obstruction (K56.609) Active confirmed Problem Atrial fibrillation (74907251) Atrial fibrillation (I48.91) Active confirmed Problem History of disease caused by Severe acute respiratory syndrome coronavirus 2 (situation) (3469603079509618 05) Personal history of COVID-19 (Z86.16) Active confirmed Vital Signs Heart Rate 90 /min 02/12/2025 Temperature 97.0 degrees Fahrenheit 02/12/2025 Blood pressure diastolic 80 mm Hg 02/12/2025 Oximetry 91 % 02/12/2025 Height 65 in 02/12/2025 Blood pressure systolic 118 mm Hg 02/12/2025 Weight 96.2 lbs 02/12/2025 BMI 16.01 kg/m2 02/12/2025 Encounters Encounter Location Date Provider Diagnosis [address] [address] 06/04/2024 Olga Sarabia Person consulting fo r explanation of examination or test findings Z71.[address] [address] 07/25/2024 Olga Sarabia Pre-operative examination Z01.818 and Impaired fasting glucose R73.[address] [place] [address] 11/14/2024 CYN FAJARDO Abnormal weight loss R63.4 ; Unspecified atrial fibrillation I48.91 ; Malignant neoplasm of unspecified part of unspecified bronchus or lung C34.90 and Essential (primary) hypertension I10 [address] [place] [address] 02/12/2025 Olga Sarabia Essential (primary) hypertension I10 ; Annual visit for general adult medical examination without abnormal findings Z00.00 ; Abnormal weight loss R63.4 ; Unspecified atrial fibrillation I48.91 ; Malignant neoplasm of unspecified part of unspecified bronchus or lung C34.90 ; Occlusion and stenosis of bilateral carotid arteries I65.23 ; Abdominal aortic aneurysm, without rupture I71.4 ; Impaired fasting glucose R73.01 ; Generalized anxiety disorder F41.1 ; Radiculopathy, cervical region M54.12 and Encounter for immunization Z23 [address] [place] [address] 02/27/[address] [place] [address] 04/01/[address] [place] [address] 04/25/[address] [place] [address] 05/15/[address] [place] [address] 05/23/[address] [place] [address] 05/23/[address] [place] [address] 05/29/2024 [facility] [address] [place] [address] 06/05/2024 [facility] [address] [facility] [place] [address] 06/06/2024 [facility] [address] [facility] [place] [address] 07/10/2024 [facility] [address] [facility] [place] [address] 07/16/2024 [facility] [address] [facility] [address] 07/25/2024 [facility] [address] [facility] [place] [address] 09/03/2024 [facility] [address] [facility] [place] [address] 09/19/2024 [facility] [address] [facility] [place] [address] 10/14/2024 [facility] [address] [facility] [place] [address] 10/14/2024 [facility] [address] [facility] [place] [address] 11/15/2024 [facility] [address] [facility] [address] 12/20/2024 [facility] [address] [facility] [place] [address] 12/25/2024 [facility] [address] [facility] [place] [address] 01/28/2025 [facility] [address] [facility] [place] [address] 02/06/2025 [facility] Assessments Encounter Date Diagnosis (ICD Code) Assessment [...] cataract surgery BL, on August 05/2025 with [facility] with Dr. Robledo. Plan [...] he does follow with Coumadin clinic at [facility]. Advised patient to check with [...] cataract surgery BL, on August 05/2025 with [facility] with Dr. Robledo. Plan as follows: [...] he does follow with Coumadin clinic at [facility]. 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 Chi at [facility]. Screening blood work before next appointment. 02/12/2025 Essential (primary) hypertension (ICD-10 - I10) Mr. Angeles is a 74-year-old gentleman with hypertension, hyperlipidemia, COPD, low testosterone, AAA, cervical radiculopathy, atrial fibrillation and status post lung cancer and resection of the right upper lobe here for Medicare wellness visit. Plan is follow Weight loss. Differential diagnosis is deconditioning secondary to lack of exercise, loss of muscle mass and bone mass and history of lung cancer. He had extensive workup done which is negative and he does not have any systemic or constitutional symptoms. Advised to increase calorie intake and he can also use boost. Appropriate hydration and increase physical activity as tolerated.He is not following with a adobe layer and has gained 2 pounds intentionally. Atrial fibrillation. He is rate controlled and he is in normal sinus rhythm and he is on warfarin.He does follow with Dr. Bazzi at [facility] in [facility] practice Hypertension. Blood pressure well controlled on carvedilol 3.1255 mg twice a day and he is also on diltiazem 120 mg daily. Low sodium diet recommended Hyperlipidemia. He has not been taking atorvastatin 40 mg, we have discussed complications given he is a high risk with a history of CVA, and bilateral carotid stenosis. He will resume himself back on the medication. We could consider atorvastatin 20 mg and will repeat levels in 4-6 weeks. Goal of LDL to be below 70. Generalized anxiety disorder/depression. Continue sertraline 25 mg daily Status post lung cancer and right lobectomy/COPD. He is stable at this point and he is on Treligy , updrafts and albuterol inhaler as needed. He also follows up with Dr. Jhaveri at [facility]. Impaired fasting glucose. FBG of 115 goal to be below 99. Previous A1c of 5.8. Repeat A1c. Diet modification discussed AAA/mesenteric stenosis/bilateral carotid stenosis. He recently had a bilateral ultrasound of the carotid which did show the right side witth 49% stenosis in the internal carotid artery and known 50-69% stenosis in the internal carotid artery of the left side with no significant changes. However there has been a discussion about TCAR to the left ICA however with consultation with different vascular practice they have decided with no intervention for now. He does also have history of abdominal aortic aneurysm and mesenteric stenosis, he denies any abdominal pain, postprandial abdominal pain or any fear of eating food. Recent ultrasound of the AAA showed an increas in the aneurysm of 4.2 x 4.8 x 4.2 cm previously 3.9 x 4.5 x 3.9 cm which in ultrasound of the aortic iliac scan will be done in May 2025 for a closer follow-up. Will continue to optimize management at this point Vitamin D deficiency. Recommended patient to take vitamin D thousand units daily Lumbar spinal stenosis, cervical radiculopathy. Stable at this point, He is currently managed with PSSP and he is on oxycodone. Vision. Up to date Hearing. Stable at this point Fall risk discussed, he stable in his feet and independent He is up-to-date on age specific screenings, flu vaccine is given in the office today. Healthcare proxy is his , Mrs. Nova Angeles, FULL CODE Screening blood work before next appointment. General concerns have been discussed I have rendered the services for this patient under direct supervision of Dr. Fajardo, who did not see the patient but was available upon request Content of this note has been dictated using voice recognition software. Despite multiple revisions, Errors may persist 02/12/2025 Annual visit for general adult medical examination without abnormal findings (ICD-10 - Z00.00) Mr. Angeles is a 74-year-old gentleman with hypertension, hyperlipidemia, COPD, low testosterone, AAA, cervical radiculopathy, atrial fibrillation and status post lung cancer and resection of the right upper lobe here for Medicare wellness visit. Plan is follow Weight loss. Differential diagnosis is deconditioning secondary to lack of exercise, loss of muscle mass and bone mass and history of lung cancer. He had extensive workup done which is negative and he does not have any systemic or constitutional symptoms. Advised to increase calorie intake and he can also use boost. Appropriate hydration and increase physical activity as tolerated.He is not following with a adobe layer and has gained 2 pounds intentionally. Atrial fibrillation. He is rate controlled and he is in normal sinus rhythm and he is on warfarin.He does follow with Dr. Bazzi at [facility] in [facility] practice Hypertension. Blood pressure well controlled on carvedilol 3.1255 mg twice a day and he is also on diltiazem 120 mg daily. Low sodium diet recommended Hyperlipidemia. He has not been taking atorvastatin 40 mg, we have discussed complications given he is a high risk with a history of CVA, and bilateral carotid stenosis. He will resume himself back on the medication. We could consider atorvastatin 20 mg and will repeat levels in 4-6 weeks. Goal of LDL to be below 70. Generalized anxiety disorder/depression. Continue sertraline 25 mg daily Status post lung cancer and right lobectomy/COPD. He is stable at this point and he is on Treligy , updrafts and albuterol inhaler as needed. He also follows up with Dr. Jhaveri at [facility]. Impaired fasting glucose. FBG of 115 goal to be below 99. Previous A1c of 5.8. Repeat A1c. Diet modification discussed AAA/mesenteric stenosis/bilateral carotid stenosis. He recently had a bilateral ultrasound of the carotid which did show the right side witth 49% stenosis in the internal carotid artery and known 50-69% stenosis in the internal carotid artery of the left side with no significant changes. However there has been a discussion about TCAR to the left ICA however with consultation with different vascular practice they have decided with no intervention for now. He does also have history of abdominal aortic aneurysm and mesenteric stenosis, he denies any abdominal pain, postprandial abdominal pain or any fear of eating food. Recent ultrasound of the AAA showed an increas in the aneurysm of 4.2 x 4.8 x 4.2 cm previously 3.9 x 4.5 x 3.9 cm which in ultrasound of the aortic iliac scan will be done in May 2025 for a closer follow-up. Will continue to optimize management at this point Vitamin D deficiency. Recommended patient to take vitamin D thousand units daily Lumbar spinal stenosis, cervical radiculopathy. Stable at this point, He is currently managed with PSSP and he is on oxycodone. Vision. Up to date Hearing. Stable at this point Fall risk discussed, he stable in his feet and independent He is up-to-date on age specific screenings, flu vaccine is given in the office today. Healthcare proxy is his , Mrs. Nova Angeles, FULL CODE Screening blood work before next appointment. General concerns have been discussed I have rendered the services for this patient under direct supervision of Dr. Fajardo, who did not see the patient but was available upon request Content of this note has been dictated using voice recognition software. Despite multiple revisions, Errors may persist 02/12/2025 Abnormal weight loss (ICD-10 - R63.4) Mr. Angeles is a 74-year-old gentleman with hypertension, hyperlipidemia, COPD, low testosterone, AAA, cervical radiculopathy, atrial fibrillation and status post lung cancer and resection of the right upper lobe here for Medicare wellness visit. Plan is follow Weight loss. Differential diagnosis is deconditioning secondary to lack of exercise, loss of muscle mass and bone mass and history of lung cancer. He had extensive workup done which is negative and he does not have any systemic or constitutional symptoms. Advised to increase calorie intake and he can also use boost. Appropriate hydration and increase physical activity as tolerated.He is not following with a adobe layer and has gained 2 pounds intentionally. Atrial fibrillation. He is rate controlled and he is in normal sinus rhythm and he is on warfarin.He does follow with Dr. Bazzi at [facility] in [facility] practice Hypertension. Blood pressure well controlled on carvedilol 3.1255 mg twice a day and he is also on diltiazem 120 mg daily. Low sodium diet recommended Hyperlipidemia. He has not been taking atorvastatin 40 mg, we have discussed complications given he is a high risk with a history of CVA, and bilateral carotid stenosis. He will resume himself back on the medication. We could consider atorvastatin 20 mg and will repeat levels in 4-6 weeks. Goal of LDL to be below 70. Generalized anxiety disorder/depression. Continue sertraline 25 mg daily Status post lung cancer and right lobectomy/COPD. He is stable at this point and he is on Treligy , updrafts and albuterol inhaler as needed. He also follows up with Dr. Jhaveri at [facility]. Impaired fasting glucose. FBG of 115 goal to be below 99. Previous A1c of 5.8. Repeat A1c. Diet modification discussed AAA/mesenteric stenosis/bilateral carotid stenosis. He recently had a bilateral ultrasound of the carotid which did show the right side witth 49% stenosis in the internal carotid artery and known 50-69% stenosis in the internal carotid artery of the left side with no significant changes. However there has been a discussion about TCAR to the left ICA however with consultation with different vascular practice they have decided with no intervention for now. He does also have history of abdominal aortic aneurysm and mesenteric stenosis, he denies any abdominal pain, postprandial abdominal pain or any fear of eating food. Recent ultrasound of the AAA showed an increas in the aneurysm of 4.2 x 4.8 x 4.2 cm previously 3.9 x 4.5 x 3.9 cm which in ultrasound of the aortic iliac scan will be done in May 2025 for a closer follow-up. Will continue to optimize management at this point Vitamin D deficiency. Recommended patient to take vitamin D thousand units daily Lumbar spinal stenosis, cervical radiculopathy. Stable at this point, He is currently managed with PSSP and he is on oxycodone. Vision. Up to date Hearing. Stable at this point Fall risk discussed, he stable in his feet and independent He is up-to-date on age specific screenings, flu vaccine is given in the office today. Healthcare proxy is his , Mrs. Nova Angeles, FULL CODE Screening blood work before next appointment. General concerns have been discussed I have rendered the services for this patient under direct supervision of Dr. Fajardo, who did not see the patient but was available upon request Content of this note has been dictated using voice recognition software. Despite multiple revisions, Errors may persist 11/14/2024 Unspecified atrial fibrillation (ICD-10 - I48.91) [...] a second opinion for weight loss at [facility] and he will talk to his [employer] still utility operator who would give her a referral Atrial [...] also follows up with Dr. Chi at [facility]. Screening blood work before next appointment. 11/14/2024 [...] a second opinion for weight loss at [facility] and he will talk to his benzene still utility operator who would give her a referral Atrial [...] also follows up with Dr. Chi at [facility]. Screening blood work before next appointment. 02/12/2025 Unspecified atrial fibrillation (ICD-10 - I48.91) Mr. Angeles is a 74-year-old gentleman with hypertension, hyperlipidemia, COPD, low testosterone, AAA, cervical radiculopathy, atrial fibrillation and status post lung cancer and resection of the right upper lobe here for Medicare wellness visit. Plan is follow Weight loss. Differential diagnosis is deconditioning secondary to lack of exercise, loss of muscle mass and bone mass and history of lung cancer. He had extensive workup done which is negative and he does not have any systemic or constitutional symptoms. Advised to increase calorie intake and he can also use boost. Appropriate hydration and increase physical activity as tolerated.He is not following with a adobe layer and has gained 2 pounds intentionally. Atrial fibrillation. He is rate controlled and he is in normal sinus rhythm and he is on warfarin.He does follow with Dr. Bazzi at [facility] in [facility] practice Hypertension. Blood pressure well controlled on carvedilol 3.1255 mg twice a day and he is also on diltiazem 120 mg daily. Low sodium diet recommended Hyperlipidemia. He has not been taking atorvastatin 40 mg, we have discussed complications given he is a high risk with a history of CVA, and bilateral carotid stenosis. He will resume himself back on the medication. We could consider atorvastatin 20 mg and will repeat levels in 4-6 weeks. Goal of LDL to be below 70. Generalized anxiety disorder/depression. Continue sertraline 25 mg daily Status post lung cancer and right lobectomy/COPD. He is stable at this point and he is on Treligy , updrafts and albuterol inhaler as needed. He also follows up with Dr. Jhaveri at [facility]. Impaired fasting glucose. FBG of 115 goal to be below 99. Previous A1c of 5.8. Repeat A1c. Diet modification discussed AAA/mesenteric stenosis/bilateral carotid stenosis. He recently had a bilateral ultrasound of the carotid which did show the right side witth 49% stenosis in the internal carotid artery and known 50-69% stenosis in the internal carotid artery of the left side with no significant changes. However there has been a discussion about TCAR to the left ICA however with consultation with different vascular practice they have decided with no intervention for now. He does also have history of abdominal aortic aneurysm and mesenteric stenosis, he denies any abdominal pain, postprandial abdominal pain or any fear of eating food. Recent ultrasound of the AAA showed an increas in the aneurysm of 4.2 x 4.8 x 4.2 cm previously 3.9 x 4.5 x 3.9 cm which in ultrasound of the aortic iliac scan will be done in May 2025 for a closer follow-up. Will continue to optimize management at this point Vitamin D deficiency. Recommended patient to take vitamin D thousand units daily Lumbar spinal stenosis, cervical radiculopathy. Stable at this point, He is currently managed with PSSP and he is on oxycodone. Vision. Up to date Hearing. Stable at this point Fall risk discussed, he stable in his feet and independent He is up-to-date on age specific screenings, flu vaccine is given in the office today. Healthcare proxy is his , Mrs. Nova Angeles, FULL CODE Screening blood work before next appointment. General concerns have been discussed I have rendered the services for this patient under direct supervision of Dr. Fajardo, who did not see the patient but was available upon request Content of this note has been dictated using voice recognition software. 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 Chi at [facility]. Screening blood work before next appointment. 02/12/2025 Malignant neoplasm of unspecified part of unspecified bronchus or lung (ICD-10 - C34.90) Mr. Angeles is a 74-year-old gentleman with hypertension, hyperlipidemia, COPD, low testosterone, AAA, cervical radiculopathy, atrial fibrillation and status post lung cancer and resection of the right upper lobe here for Medicare wellness visit. Plan is follow Weight loss. Differential diagnosis is deconditioning secondary to lack of exercise, loss of muscle mass and bone mass and history of lung cancer. He had extensive workup done which is negative and he does not have any systemic or constitutional symptoms. Advised to increase calorie intake and he can also use boost. Appropriate hydration and increase physical activity as tolerated.He is not following with a adobe layer and has gained 2 pounds intentionally. Atrial fibrillation. He is rate controlled and he is in normal sinus rhythm and he is on warfarin.He does follow with Dr. Bazzi at [facility] in [facility] practice Hypertension. Blood pressure well controlled on carvedilol 3.1255 mg twice a day and he is also on diltiazem 120 mg daily. Low sodium diet recommended Hyperlipidemia. He has not been taking atorvastatin 40 mg, we have discussed complications given he is a high risk with a history of CVA, and bilateral carotid stenosis. He will resume himself back on the medication. We could consider atorvastatin 20 mg and will repeat levels in 4-6 weeks. Goal of LDL to be below 70. Generalized anxiety disorder/depression. Continue sertraline 25 mg daily Status post lung cancer and right lobectomy/COPD. He is stable at this point and he is on Treligy , updrafts and albuterol inhaler as needed. He also follows up with Dr. Jhaveri at [facility]. Impaired fasting glucose. FBG of 115 goal to be below 99. Previous A1c of 5.8. Repeat A1c. Diet modification discussed AAA/mesenteric stenosis/bilateral carotid stenosis. He recently had a bilateral ultrasound of the carotid which did show the right side witth 49% stenosis in the internal carotid artery and known 50-69% stenosis in the internal carotid artery of the left side with no significant changes. However there has been a discussion about TCAR to the left ICA however with consultation with different vascular practice they have decided with no intervention for now. He does also have history of abdominal aortic aneurysm and mesenteric stenosis, he denies any abdominal pain, postprandial abdominal pain or any fear of eating food. Recent ultrasound of the AAA showed an increas in the aneurysm of 4.2 x 4.8 x 4.2 cm previously 3.9 x 4.5 x 3.9 cm which in ultrasound of the aortic iliac scan will be done in May 2025 for a closer follow-up. Will continue to optimize management at this point Vitamin D deficiency. Recommended patient to take vitamin D thousand units daily Lumbar spinal stenosis, cervical radiculopathy. Stable at this point, He is currently managed with PSSP and he is on oxycodone. Vision. Up to date Hearing. Stable at this point Fall risk discussed, he stable in his feet and independent He is up-to-date on age specific screenings, flu vaccine is given in the office today. Healthcare proxy is his , Mrs. Nova Angeles, FULL CODE Screening blood work before next appointment. General concerns have been discussed I have rendered the services for this patient under direct supervision of Dr. Fajardo, who did not see the patient but was available upon request Content of this note has been dictated using voice recognition software. Despite multiple revisions, Errors may persist 02/12/2025 Occlusion and stenosis of bilateral carotid arteries (ICD-10 - I65.23) Mr. Angeles is a 74-year-old gentleman with hypertension, hyperlipidemia, COPD, low testosterone, AAA, cervical radiculopathy, atrial fibrillation and status post lung cancer and resection of the right upper lobe here for Medicare wellness visit. Plan is follow Weight loss. Differential diagnosis is deconditioning secondary to lack of exercise, loss of muscle mass and bone mass and history of lung cancer. He had extensive workup done which is negative and he does not have any systemic or constitutional symptoms. Advised to increase calorie intake and he can also use boost. Appropriate hydration and increase physical activity as tolerated.He is not following with a adobe layer and has gained 2 pounds intentionally. Atrial fibrillation. He is rate controlled and he is in normal sinus rhythm and he is on warfarin.He does follow with Dr. Bazzi at [facility] in [place] practice Hypertension. Blood pressure well controlled on carvedilol 3.1255 mg twice a day and he is also on diltiazem 120 mg daily. Low sodium diet recommended Hyperlipidemia. He has not been taking atorvastatin 40 mg, we have discussed complications given he is a high risk with a history of CVA, and bilateral carotid stenosis. He will resume himself back on the medication. We could consider atorvastatin 20 mg and will repeat levels in 4-6 weeks. Goal of LDL to be below 70. Generalized anxiety disorder/depression. Continue sertraline 25 mg daily Status post lung cancer and right lobectomy/COPD. He is stable at this point and he is on Treligy , updrafts and albuterol inhaler as needed. He also follows up with Dr. Jhaveri at [facility]. Impaired fasting glucose. FBG of 115 goal to be below 99. Previous A1c of 5.8. Repeat A1c. Diet modification discussed AAA/mesenteric stenosis/bilateral carotid stenosis. He recently had a bilateral ultrasound of the carotid which did show the right side witth 49% stenosis in the internal carotid artery and known 50-69% stenosis in the internal carotid artery of the left side with no significant changes. However there has been a discussion about TCAR to the left ICA however with consultation with different vascular practice they have decided with no intervention for now. He does also have history of abdominal aortic aneurysm and mesenteric stenosis, he denies any abdominal pain, postprandial abdominal pain or any fear of eating food. Recent ultrasound of the AAA showed an increas in the aneurysm of 4.2 x 4.8 x 4.2 cm previously 3.9 x 4.5 x 3.9 cm which in ultrasound of the aortic iliac scan will be done in May 2025 for a closer follow-up. Will continue to optimize management at this point Vitamin D deficiency. Recommended patient to take vitamin D thousand units daily Lumbar spinal stenosis, cervical radiculopathy. Stable at this point, He is currently managed with PSSP and he is on oxycodone. Vision. Up to date Hearing. Stable at this point Fall risk discussed, he stable in his feet and independent He is up-to-date on age specific screenings, flu vaccine is given in the office today. Healthcare proxy is his , Mrs. Nova Angeles, FULL CODE Screening blood work before next appointment. General concerns have been discussed I have rendered the services for this patient under direct supervision of Dr. Fajardo, who did not see the patient but was available upon request Content of this note has been dictated using voice recognition software. Despite multiple revisions, Errors may persist 02/12/2025 Abdominal aortic aneurysm, without rupture (ICD-10 - I71.4) Mr. Angeles is a 74-year-old gentleman with hypertension, hyperlipidemia, COPD, low testosterone, AAA, cervical radiculopathy, atrial fibrillation and status post lung cancer and resection of the right upper lobe here for Medicare wellness visit. Plan is follow Weight loss. Differential diagnosis is deconditioning secondary to lack of exercise, loss of muscle mass and bone mass and history of lung cancer. He had extensive workup done which is negative and he does not have any systemic or constitutional symptoms. Advised to increase calorie intake and he can also use boost. Appropriate hydration and increase physical activity as tolerated.He is not following with a adobe layer and has gained 2 pounds intentionally. Atrial fibrillation. He is rate controlled and he is in normal sinus rhythm and he is on warfarin.He does follow with Dr. Bazzi at [facility] in [facility] practice Hypertension. Blood pressure well controlled on carvedilol 3.1255 mg twice a day and he is also on diltiazem 120 mg daily. Low sodium diet recommended Hyperlipidemia. He has not been taking atorvastatin 40 mg, we have discussed complications given he is a high risk with a history of CVA, and bilateral carotid stenosis. He will resume himself back on the medication. We could consider atorvastatin 20 mg and will repeat levels in 4-6 weeks. Goal of LDL to be below 70. Generalized anxiety disorder/depression. Continue sertraline 25 mg daily Status post lung cancer and right lobectomy/COPD. He is stable at this point and he is on Treligy , updrafts and albuterol inhaler as needed. He also follows up with Dr. Jhaveri at [facility]. Impaired fasting glucose. FBG of 115 goal to be below 99. Previous A1c of 5.8. Repeat A1c. Diet modification discussed AAA/mesenteric stenosis/bilateral carotid stenosis. He recently had a bilateral ultrasound of the carotid which did show the right side witth 49% stenosis in the internal carotid artery and known 50-69% stenosis in the internal carotid artery of the left side with no significant changes. However there has been a discussion about TCAR to the left ICA however with consultation with different vascular practice they have decided with no intervention for now. He does also have history of abdominal aortic aneurysm and mesenteric stenosis, he denies any abdominal pain, postprandial abdominal pain or any fear of eating food. Recent ultrasound of the AAA showed an increas in the aneurysm of 4.2 x 4.8 x 4.2 cm previously 3.9 x 4.5 x 3.9 cm which in ultrasound of the aortic iliac scan will be done in May 2025 for a closer follow-up. Will continue to optimize management at this point Vitamin D deficiency. Recommended patient to take vitamin D thousand units daily Lumbar spinal stenosis, cervical radiculopathy. Stable at this point, He is currently managed with PSSP and he is on oxycodone. Vision. Up to date Hearing. Stable at this point Fall risk discussed, he stable in his feet and independent He is up-to-date on age specific screenings, flu vaccine is given in the office today. Healthcare proxy is his , Mrs. Nova Angeles, FULL CODE Screening blood work before next appointment. General concerns have been discussed I have rendered the services for this patient under direct supervision of Dr. Fajardo, who did not see the patient but was available upon request Content of this note has been dictated using voice recognition software. Despite multiple revisions, Errors may persist 02/12/2025 Impaired fasting glucose (ICD-10 - R73.01) Mr. Angeles is a 74-year-old gentleman with hypertension, hyperlipidemia, COPD, low testosterone, AAA, cervical radiculopathy, atrial fibrillation and status post lung cancer and resection of the right upper lobe here for Medicare wellness visit. Plan is follow Weight loss. Differential diagnosis is deconditioning secondary to lack of exercise, loss of muscle mass and bone mass and history of lung cancer. He had extensive workup done which is negative and he does not have any systemic or constitutional symptoms. Advised to increase calorie intake and he can also use boost. Appropriate hydration and increase physical activity as tolerated.He is not following with a adobe layer and has gained 2 pounds intentionally. Atrial fibrillation. He is rate controlled and he is in normal sinus rhythm and he is on warfarin.He does follow with Dr. Bazzi at [facility] in [facility] Hypertension. Blood pressure well controlled on carvedilol 3.1255 mg twice a day and he is also on diltiazem 120 mg daily. Low sodium diet recommended Hyperlipidemia. He has not been taking atorvastatin 40 mg, we have discussed complications given he is a high risk with a history of CVA, and bilateral carotid stenosis. He will resume himself back on the medication. We could consider atorvastatin 20 mg and will repeat levels in 4-6 weeks. Goal of LDL to be below 70. Generalized anxiety disorder/depression. Continue sertraline 25 mg daily Status post lung cancer and right lobectomy/COPD. He is stable at this point and he is on Treligy , updrafts and albuterol inhaler as needed. He also follows up with Dr. Jhaveri at [facility]. Impaired fasting glucose. FBG of 115 goal to be below 99. Previous A1c of 5.8. Repeat A1c. Diet modification discussed AAA/mesenteric stenosis/bilateral carotid stenosis. He recently had a bilateral ultrasound of the carotid which did show the right side witth 49% stenosis in the internal carotid artery and known 50-69% stenosis in the internal carotid artery of the left side with no significant changes. However there has been a discussion about TCAR to the left ICA however with consultation with different vascular practice they have decided with no intervention for now. He does also have history of abdominal aortic aneurysm and mesenteric stenosis, he denies any abdominal pain, postprandial abdominal pain or any fear of eating food. Recent ultrasound of the AAA showed an increas in the aneurysm of 4.2 x 4.8 x 4.2 cm previously 3.9 x 4.5 x 3.9 cm which in ultrasound of the aortic iliac scan will be done in May 2025 for a closer follow-up. Will continue to optimize management at this point Vitamin D deficiency. Recommended patient to take vitamin D thousand units daily Lumbar spinal stenosis, cervical radiculopathy. Stable at this point, He is currently managed with PSSP and he is on oxycodone. Vision. Up to date Hearing. Stable at this point Fall risk discussed, he stable in his feet and independent He is up-to-date on age specific screenings, flu vaccine is given in the office today. Healthcare proxy is his , Mrs. Nova Angeles, FULL CODE Screening blood work before next appointment. General concerns have been discussed I have rendered the services for this patient under direct supervision of Dr. Fajardo, who did not see the patient but was available upon request Content of this note has been dictated using voice recognition software. Despite multiple revisions, Errors may persist 02/12/2025 Generalized anxiety disorder (ICD-10 - F41.1) Mr. Angeles is a 74-year-old gentleman with hypertension, hyperlipidemia, COPD, low testosterone, AAA, cervical radiculopathy, atrial fibrillation and status post lung cancer and resection of the right upper lobe here for Medicare wellness visit. Plan is follow Weight loss. Differential diagnosis is deconditioning secondary to lack of exercise, loss of muscle mass and bone mass and history of lung cancer. He had extensive workup done which is negative and he does not have any systemic or constitutional symptoms. Advised to increase calorie intake and he can also use boost. Appropriate hydration and increase physical activity as tolerated.He is not following with a adobe layer and has gained 2 pounds intentionally. Atrial fibrillation. He is rate controlled and he is in normal sinus rhythm and he is on warfarin.He does follow with Dr. Bazzi at [facility] in [facility] practice Hypertension. Blood pressure well controlled on carvedilol 3.1255 mg twice a day and he is also on diltiazem 120 mg daily. Low sodium diet recommended Hyperlipidemia. He has not been taking atorvastatin 40 mg, we have discussed complications given he is a high risk with a history of CVA, and bilateral carotid stenosis. He will resume himself back on the medication. We could consider atorvastatin 20 mg and will repeat levels in 4-6 weeks. Goal of LDL to be below 70. Generalized anxiety disorder/depression. Continue sertraline 25 mg daily Status post lung cancer and right lobectomy/COPD. He is stable at this point and he is on Treligy , updrafts and albuterol inhaler as needed. He also follows up with Dr. Jhaveri at [facility]. Impaired fasting glucose. FBG of 115 goal to be below 99. Previous A1c of 5.8. Repeat A1c. Diet modification discussed AAA/mesenteric stenosis/bilateral carotid stenosis. He recently had a bilateral ultrasound of the carotid which did show the right side witth 49% stenosis in the internal carotid artery and known 50-69% stenosis in the internal carotid artery of the left side with no significant changes. However there has been a discussion about TCAR to the left ICA however with consultation with different vascular practice they have decided with no intervention for now. He does also have history of abdominal aortic aneurysm and mesenteric stenosis, he denies any abdominal pain, postprandial abdominal pain or any fear of eating food. Recent ultrasound of the AAA showed an increas in the aneurysm of 4.2 x 4.8 x 4.2 cm previously 3.9 x 4.5 x 3.9 cm which in ultrasound of the aortic iliac scan will be done in May 2025 for a closer follow-up. Will continue to optimize management at this point Vitamin D deficiency. Recommended patient to take vitamin D thousand units daily Lumbar spinal stenosis, cervical radiculopathy. Stable at this point, He is currently managed with PSSP and he is on oxycodone. Vision. Up to date Hearing. Stable at this point Fall risk discussed, he stable in his feet and independent He is up-to-date on age specific screenings, flu vaccine is given in the office today. Healthcare proxy is his , Mrs. Nova Angeles, FULL CODE Screening blood work before next appointment. General concerns have been discussed I have rendered the services for this patient under direct supervision of Dr. Fajardo, who did not see the patient but was available upon request Content of this note has been dictated using voice recognition software. Despite multiple revisions, Errors may persist 02/12/2025 Radiculopathy, cervical region (ICD-10 - M54.12) Mr. Angeles is a 74-year-old gentleman with hypertension, hyperlipidemia, COPD, low testosterone, AAA, cervical radiculopathy, atrial fibrillation and status post lung cancer and resection of the right upper lobe here for Medicare wellness visit. Plan is follow Weight loss. Differential diagnosis is deconditioning secondary to lack of exercise, loss of muscle mass and bone mass and history of lung cancer. He had extensive workup done which is negative and he does not have any systemic or constitutional symptoms. Advised to increase calorie intake and he can also use boost. Appropriate hydration and increase physical activity as tolerated.He is not following with a adobe layer and has gained 2 pounds intentionally. Atrial fibrillation. He is rate controlled and he is in normal sinus rhythm and he is on warfarin.He does follow with Dr. Bazzi at [facility] in [facility] Hypertension. Blood pressure well controlled on carvedilol 3.1255 mg twice a day and he is also on diltiazem 120 mg daily. Low sodium diet recommended Hyperlipidemia. He has not been taking atorvastatin 40 mg, we have discussed complications given he is a high risk with a history of CVA, and bilateral carotid stenosis. He will resume himself back on the medication. We could consider atorvastatin 20 mg and will repeat levels in 4-6 weeks. Goal of LDL to be below 70. Generalized anxiety disorder/depression. Continue sertraline 25 mg daily Status post lung cancer and right lobectomy/COPD. He is stable at this point and he is on Treligy , updrafts and albuterol inhaler as needed. He also follows up with Dr. Jhaveri at [facility]. Impaired fasting glucose. FBG of 115 goal to be below 99. Previous A1c of 5.8. Repeat A1c. Diet modification discussed AAA/mesenteric stenosis/bilateral carotid stenosis. He recently had a bilateral ultrasound of the carotid which did show the right side witth 49% stenosis in the internal carotid artery and known 50-69% stenosis in the internal carotid artery of the left side with no significant changes. However there has been a discussion about TCAR to the left ICA however with consultation with different vascular practice they have decided with no intervention for now. He does also have history of abdominal aortic aneurysm and mesenteric stenosis, he denies any abdominal pain, postprandial abdominal pain or any fear of eating food. Recent ultrasound of the AAA showed an increas in the aneurysm of 4.2 x 4.8 x 4.2 cm previously 3.9 x 4.5 x 3.9 cm which in ultrasound of the aortic iliac scan will be done in May 2025 for a closer follow-up. Will continue to optimize management at this point Vitamin D deficiency. Recommended patient to take vitamin D thousand units daily Lumbar spinal stenosis, cervical radiculopathy. Stable at this point, He is currently managed with PSSP and he is on oxycodone. Vision. Up to date Hearing. Stable at this point Fall risk discussed, he stable in his feet and independent He is up-to-date on age specific screenings, flu vaccine is given in the office today. Healthcare proxy is his , Mrs. Nova Angeles, FULL CODE Screening blood work before next appointment. General concerns have been discussed I have rendered the services for this patient under direct supervision of Dr. Fajardo, who did not see the patient but was available upon request Content of this note has been dictated using voice recognition software. Despite multiple revisions, Errors may persist 02/12/2025 Encounter for immunization (ICD-10 - Z23) Mr. Angeles is a 74-year-old gentleman with hypertension, hyperlipidemia, COPD, low testosterone, AAA, cervical radiculopathy, atrial fibrillation and status post lung cancer and resection of the right upper lobe here for Medicare wellness visit. Plan is follow Weight loss. Differential diagnosis is deconditioning secondary to lack of exercise, loss of muscle mass and bone mass and history of lung cancer. He had extensive workup done which is negative and he does not have any systemic or constitutional symptoms. Advised to increase calorie intake and he can also use boost. Appropriate hydration and increase physical activity as tolerated.He is not following with a adobe layer and has gained 2 pounds intentionally. Atrial fibrillation. He is rate controlled and he is in normal sinus rhythm and he is on warfarin.He does follow with Dr. Bazzi at [facility] in [facility] practice Hypertension. Blood pressure well controlled on carvedilol 3.1255 mg twice a day and he is also on diltiazem 120 mg daily. Low sodium diet recommended Hyperlipidemia. He has not been taking atorvastatin 40 mg, we have discussed complications given he is a high risk with a history of CVA, and bilateral carotid stenosis. He will resume himself back on the medication. We could consider atorvastatin 20 mg and will repeat levels in 4-6 weeks. Goal of LDL to be below 70. Generalized anxiety disorder/depression. Continue sertraline 25 mg daily Status post lung cancer and right lobectomy/COPD. He is stable at this point and he is on Treligy , updrafts and albuterol inhaler as needed. He also follows up with Dr. Jhaveri at [facility]. Impaired fasting glucose. FBG of 115 goal to be below 99. Previous A1c of 5.8. Repeat A1c. Diet modification discussed AAA/mesenteric stenosis/bilateral carotid stenosis. He recently had a bilateral ultrasound of the carotid which did show the right side witth 49% stenosis in the internal carotid artery and known 50-69% stenosis in the internal carotid artery of the left side with no significant changes. However there has been a discussion about TCAR to the left ICA however with consultation with different vascular practice they have decided with no intervention for now. He does also have history of abdominal aortic aneurysm and mesenteric stenosis, he denies any abdominal pain, postprandial abdominal pain or any fear of eating food. Recent ultrasound of the AAA showed an increas in the aneurysm of 4.2 x 4.8 x 4.2 cm previously 3.9 x 4.5 x 3.9 cm which in ultrasound of the aortic iliac scan will be done in May 2025 for a closer follow-up. Will continue to optimize management at this point Vitamin D deficiency. Recommended patient to take vitamin D thousand units daily Lumbar spinal stenosis, cervical radiculopathy. Stable at this point, He is currently managed with PSSP and he is on oxycodone. Vision. Up to date Hearing. Stable at this point Fall risk discussed, he stable in his feet and independent He is up-to-date on age specific screenings, flu vaccine is given in the office today. Healthcare proxy is his , Mrs. Nova Angeles, FULL CODE Screening blood work before next appointment. General concerns have been discussed I have rendered the services for this patient under direct supervision of Dr. Fajardo, who did not see the patient but was available upon request Content of this note has been dictated using voice recognition software. Despite multiple revisions, Errors may persist Plan Of Treatment Pending Test Test Name Order Date Ultrasound : Kidneys and Bladder 024 Next Appt Details Provider Name:Olga saldivar, 08/12/2025 03:00:00 PM, [address] [place] [address], [place], [address], Insurance Providers Payer Name Payer Address Payer Phone Subscriber Number Group Number Insured Name Patient Relationship to Insured Coverage Start Date Coverage End Date [employer] Preferred [address] [place] [address] [phone] [id number] Mayela nascimentoDirk Self - patient is the insured 2 Medical (General) History Medical History History ICD Code Essential (primary) hypertension I10 Hyperlipidemia, unspecified E78.5 COPD and he sees Dr. Jhaveri Low testosterone levels and he sees Dr. 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 He is currently on Coumadin monitored by Cou[facility] [place] [facility]. Pulmonary nodule right lung. Positive on PET scan and planning to have resection by at [facility] Small bowel obstruction and status post resection and he sees Dr. Barr. Cervical radiculopathy and h e follows with [facility] spine and sports and is on narcotics Smokes marijuana for appetite A Fib see Dr Bazzi Personal history of COVID-19 S/P Pasturella infection Surgical History Surgery Date(Month/Year) Small bowel obstruction 06/26/16 cervical spine 09/17/13 Right upper lobectomy at [facility] 09/2018 Hospitalization History Reason Date(Month/Year) right lobectomy 10/13/18
--- OUTSIDE RECORDS SUMMARY | 2025-02-26 17:55 | XMS_ITS | Encounter Summary ---
Author Organization [facility] Address [address] [place] [address] Care Team Providers Care Tool Shaper Set Up Operator Name Role Phone Timoteo Escamilla MD Primary Care Provider [phone] Encounter Details Date Type Department Care Team (Late Contact Info) Description 06/25/2024 Lab Requisition [facility] - Main Lab [address] [facility] [place] [phone] Khurram Zambrano PA [address] [facility] [address] [place] [phone] Urinary tract infection, site not specified; Gross [...] Info) Description 03/10/2025 3:00 PM EST Appointment [facility] Radiation Oncology [address] [place] [phone] 07/02/2025 3:00 PM EDT Office Visit [facility] Hematology Oncology [address] [place] [address] Casey Llanes MD [address] [place] [address] documented as of this encounter Procedures Procedure Name Priority Date/Time Associated Diagnosis Comments CULTURE URINE Routine 06/25/2024 1:15 PM EST Urinary tract infection, site not specified Gross hematuria documented in this encounter Results * Culture urine (06/25/2024 1:15 PM EST) Culture, Urine No growth 06/26/2024 2:25 PM EST [facility] Urine Urine specimen obtained by clean catch procedure / Unknown 06/25/2024 1:15 PM EST 06/25/2024 6:08 PM EST us [facility] MICROBIOLOGY - GE NERAL ORDERABLES Final Result [facility] [address] [place] [address], documented in this encounter Visit Diagnoses Diagnosis Urinary tract infection, site not specified Gross hematuria documented in this encounter Care Teams Tool Shaper Set Up Operator Relationship Specialty Start Date End Date Timoteo Escamilla MD [address] [place] [address] PCP - General 02/23/22 documented as of this encounter
--- OUTSIDE RECORDS SUMMARY | 2025-02-26 17:55 | XMS_ITS | Patient Health Record ---
Author Organization [facility] Address [address] [place] [address] Care Team Providers Care Cost Accounting Manager Name Role Phone SCOTTY CYN Primary Care Provider Sarwat Lopez [phone] Allergies Allergen (clinical drug ingredient) Drug/Non Drug [...] 5 MG Oral; Duration: 90 Active Creon 19074 UNIT take 1 15-30 minutes before each [...] Problem Screening for malignant neoplasm of colon (290631634) Encounter for screening for malignant neoplasm of colon (Z12.11) Active confirmed Problem Diarrhea (47534296) Diarrhea (R19.7) Active confirmed Problem Weight loss (097476391) Weight loss (R63.4) Active confirmed Problem Irritable bowel syndrome with diarrhea (751646660) Irritable bowel syndrome with diarrhea (K58.0) Active confirmed Problem Flatulence (904950832) Flatulence (R14.3) Active confirmed Problem Constipation (11604098) Constipation, unspecified constipation type (K59.00) Active confirmed Problem Abdominal pain (20208783) Abdominal cramps (R10.9) Active confirmed Problem Ulcerative colitis (07913547) Other ulcerative colitis without complication (K51.80) Active confirmed Problem Anemia (064884660) Anemia, unspecified type (D64.9) Active confirmed Problem Ulcerative colitis (29766800) Ulcerative colitis (K51.90) Active confirmed Problem Diarrhea (77182755) Diarrhea, unspecified type (R19.7) Active confirmed Problem Chronic pancreatitis (657569051) Chronic pancreatitis, unspecified pancreatitis type (K86.1) Active confirmed Problem Clostridium difficile diarrhea (2567379970887) Clostridium difficile diarrhea (A04.72) Active confirmed Problem Clostridioides difficile infection (190782390) Clostridioides difficile infection (A49.8) Active confirmed Plan [...] End Date [employer] PREFERRED [address] [place] [address] [id number] LEIGHTON MELGAR Self - patient is the insured Medical (General) History Medical History History ICD Code Most recent colonoscopy was 03/10/2010--no active colitis, no dysplasia on biopsies, no polyps Stroke-causing some partial loss of visi on in the left eye 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 Ramos Hyperlipidemia Ulcerative colitis dating back to the Denies VT,DM,renal disease Chronic back pain--spinal stenosis AAA--approx 3 cm-followed with periodic U/S RUL Lung cancer with surgery as below C.diff infection 04/2020 Colonoscopy 07/2020--normal e xcept for 1 small tubular adenoma--no colitis, no dysplasia Neg. ETT in 05/2021 Surgical History Surgery Date(Month/Year) Perirectal abscess surgery Neck surgery for 3 discs--Dr. Rodriguez SB volvulus--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 Hampton [facility] 06/2016 RUL lobectomy for cancer-Dr. Newman-no chemo/XRT- told that he is cancer-free 04/2018
--- OUTSIDE RECORDS SUMMARY | 2025-02-26 17:55 | XMS_ITS | Clinical Summary ---
Author Organization [facility] Address [address] [place] [address] Care Team Providers Care Pmo Consultant Name Role Phone Timoteo Escamilla MD Primary Care Provider [phone] Allergies Active Allergy Reactions Criticality Noted Date [...] Shingrix-Zoster Vaccine (1 o f 2) 02/15/1968 DTap / Tdap / Td (1 - [...] age to complete this topic Care Teams Pmo Consultant Relationship Specialty Start Date End Date Timoteo Escamilla MD [address] [place] [address] PCP - General Internal Medicine 02/23/22
--- OUTSIDE RECORDS SUMMARY | 2025-02-26 17:55 | XMS_ITS | Patient Health Record ---
Author Organization [facility] Address [address] [facility] [place] [address] Care Team Providers Care Workforce Services Representative Name Role Phone Ming Ahmet Primary Care Provider Unavailjonathan martínez Nohelia Dickinson Unavailable [phone] Allergies Allergen (clinical drug ingredient) Drug/Non Drug [...] Treatment Pending Test Test Name Order Date [id number] Destruction, -06/30/2015 [id number] Destruction, -08/03/2015 Insurance Providers Payer Name Payer Address Payer Phone Subscriber Number Group Number Insured Name Patient Relationship to Insured Coverage Start Date Coverage End Date [employer] Preferred [address] [place] [address] [id number] Dirk Pedro i Self - patient is the insured Medical (General) History Medical History History ICD Code Hypertension Stroke Measles Chicken pox Surgical History Surgery Date(Month/Year) cervical fusion 08/2012
== END 2025-02-26 15:05 | disposition home or self-care (01) ==
LOC: HO.ACS 14:48
PROVIDERS: PCP Hospitalist; Visit Provider Internal Medicine Medical Oncology
DX: Z79.01 Long term (current) use of anticoagulants (principal)

== ENCOUNTER → 2025-02-26 14:48 | Outpatient (BNVA) | payer MEDICARE, SELFPAY | PROVIDERS: PCP Hospitalist; Visit Provider Internal Medicine Medical Oncology | DX: Z79.01 Long term (current) use of anticoagulants (principal) | CPT/HCPCS: 85610; 99211 ==

== ENCOUNTER 2025-03-28 14:48 | Outpatient (AMB) | payer MEDICARE, SELFPAY ==
--- NOTE | 2025-03-28 15:04 | MHC.OFFVISCO ---
Intake Intake Visit Reasons: Anticoagulation Allergies bupropion (From Wellbutrin) Allergy (Intermediate, Verified 03/28/25 14:49) Nausea levofloxacin (From LEVAQUIN) Allergy (Intermediate, Verified 03/28/25 14:49) GI UPSET/ WEIGHT LOSS, anaphylaxis sulfamethoxazole (From Bactrim) Allergy (Intermediate, Verified 03/28/25 14:49) rash trimethoprim (From Bactrim) Allergy (Intermediate, Verified 03/28/25 14:49) rash ibuprofen Allergy (Mild, Verified 03/28/25 14:49) GI DISTRESS Medication List - Last Reconciled 03/28/25 by Cherrie Parker RN acetaminophen 500 mg PO Q6H PRN albuterol sulfate 90 mcg/actuation 2 puffs PO Q6H PRN albuterol sulfate 2.5 mg (3 mL) continuous nebulization QID PRN atorvastatin 20 mg PO DAILY azithromycin mg PO calcium citrate 500 mg (2 x 250 mg calcium) PO BID 90 days carvedilol 3.125 mg PO BID cholecalciferol (vitamin D3) 100 mcg (2 x 50 mcg (2,000 unit)) PO DAILY 90 days diltiazem HCl 120 mg PO BID doxycycline hyclate 100 mg PO BID [ENSURE / BOOST PO DAILY] dkdflqtdnra-icamydnze-psjubhhn 100-62.5-25 mcg (Trelegy Ellipta) 1 inh inhalation DAILY 30 days Lactobacillus rhamnosus GG (Culturelle) 1 cap PO DAILY uzhtvspgyzpi-gxvtxleg-pofxci 1 tab PO DAILY nebulizers As directed oxycodone 10 mg PO Q6H PRN oxycodone ER (OxyContin) 10 mg PO Q12H Oxygen Home Use As directed sertraline 25 mg PO BEDTIME simethicone (Gas Relief (simethicone)) 160 mg (2 x 80 mg) PO TID PRN 30 days sodium chloride 7% 4 mL inhalation BID theophylline ER mg PO warfarin 2.5 mg See Protocol PO DAILY Held on 07/20/23. Instructions: Resume on 07/21/23. if coughing blood needs to continue holding coumadin and call the office Nursing Note INR: 2.3 in therapeutic range Medications and supplements reviewed Taking antbx combo as before which can raise the INR , on ensure/boost TID which has helped balance the INR Denies any signs and symptoms of bleeding or bruising or clotting. Bleeding, bruising, clotting discussed Nutritional guidance given Dose: 3.75MG X 2 DAYS/ 2.5MG X 5 DAYS F/U INR: 1 MONTH Patient verbalizes understanding of instructions given Anti-Coag Initial Assessment Social Hx Patient Tobacco Use Status: Former Tobacco user Tobacco use type: Cigarette Alcohol intake frequency: former alcohol drinker Coding Level of Care Code Est Patient Level 1 Diagnoses Current use of anticoagulant therapy Z79.01 Results AMB INR Fingerstick AMB INR Fingerstick 2.3 Last Edit by Cherrie Parker RN on 03/28/25 14:58 manual entry Assessment & Plan Assessment & Plan (1) Current use of anticoagulant therapy: Code(s): Z79.01 - silk finisher (current) use of 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
--- OUTSIDE RECORDS SUMMARY | 2025-03-28 18:54 | XMS_ITS | Clinical Summary ---
Author Organization [facility] Prior to 09/21/24 Address [address] [place] [address] Care Team Providers Care Process Description Writer Name Role Phone Timoteo Escamilla MD Primary Care Provider [phone] Allergies Active Allergy Reactions Criticality Noted Date [...] 75+ series) 02/15/2024 Influenza Vaccine (#1) 2024 , 05/16/2017, 03/03/2016 Hepatitis B Vaccines Aged Out No long er eligible based on patient's age to complete this topic RSV Ped < 20 months Aged Out No longe r eligible based on patient's age to complete this topic Care Teams Process Description Writer Relationship Specialty Start Date End Date Timoteo Escamilla MD [address] [place] [id number] PCP - General Internal Medicine 02/23/22
--- OUTSIDE RECORDS SUMMARY | 2025-03-28 18:54 | XMS_ITS | Clinical Summary ---
Author Organization [facility] Address [address] [place] [address] Phone Care Team Providers Care Shrinking Machine Operator Name Role Phone Timoteo Escamilla MD Primary Care Provider [phone] Allergies Active Allergy Reactions Criticality Noted Date [...] carcinoma of r ight lung (CMS/HCC V24, CMS/[facility] V28) 04/23/2022 Encounters Date Type Department Care Team Description 03/17/2025 2:54 PM EST - 03/17/2025 11:59 PM EST Hospital Encounter [facility] Radiation Oncology [address] [place] [phone] Squamous cell carcinoma of right lung (CMS/HCC V24, CMS/[facility] V28) (Primary Dx) Discharge Disposition: Home or Self Care 03/03/2025 Telephone [facility] Cardiology [address] [place] [phone] Timoteo Escamilla MD 02/11/2025 Telephone [facility] Radiation Oncology [address] [place] [phone] 01/27/2025 3:30 PM EDT - 01/27/2025 11:59 PM EDT Hospital Encounter [facility] Radiation Oncology [address] [place] [phone] Abnormal weight loss (Primary Dx); Malnutrition following gastrointestinal surgery; Squamous cell carcinoma of right lung (CMS/HCC V24, CMS/HCC V28) Discharge Disposition: Home or Self Care 01/24/2025 Telephone [facility] Radiation Oncology [address] [place] [phone] 01/23/2025 Telephone [facility] Radiation Oncology [address] [place] [phone] 01/13/2025 2:59 PM EDT - 01/13/2025 11:59 PM EDT Hospital Encounter [facility] Radiation Oncology [address] [place] [phone] Alana Hanson, [place] Squamous cell carcinoma of right lung (CMS/HCC V24, CMS/HCC V28) (Primary Dx); Abnormal weight loss Discharge Disposition: Home or Self Care 01/02/2025 Telephone [facility] Radiation Oncology [address] [place] [phone] 01/01/2025 3:00 PM EDT Office Visit [facility] Hematology Oncology [address] [place] [phone] Casey Llanes MD Squamous cell carcinoma of right lung (CMS/HCC V24, CMS/HCC V28) (Primary Dx) from Last 3 Months Immunizations Immunization Administration [...] EDT Inhaled Oxygen Concentration - - Weight 45.1 kg (99 lb 6.4 oz) 03/17/2025 2:00 PM EST Height 162.6 cm (5' 4 ) 10/04/2023 3:32 PM EDT Body Mass Index 17.06 10/04/2023 3:32 PM EDT Plan of Treatment Upcoming Encounters Date Type Department Care Team (Late st Contact Info) Description 04/28/2025 3:00 PM EST Appointment [facility] Radiation Oncology [address] [place] [phone] 07/02/2025 3:00 PM EDT Office Visit [facility] Hematology Oncology [address] [place] [phone] Casey Llanes MD [address] [place] [phone] Health Maintenance Due Date Last [...] 1-dose 75+ series) 02/15/2024 Depression Screening 04/24/2024 Pneumococcal Vaccine: 50+ Years Completed 03/07/2024, 03/03/2016 Influenza Vaccine Completed 02/12/2025, , 03/23/2022, Additional history exists HIB Vaccines Aged Out No longer eligi [...] LAB CHEMISTRY METHOD 01/27/2025 5:43 PM EDT [facility] Blood Venous blood specimen / Unknown Venipuncture / Unknown 01/27/2025 3:10 PM EDT 01/27/2025 4:46 PM EDT Casey Llanes MD LAB BLOOD ORDERABLES Final Result [facility] [address] [place] [address], * Phosphorus (01/27/2025 3:10 PM EDT) Phosphorus 4.1 2.5 - 4.5 mg/dL LAB CHEMISTRY METHOD 01/27/2025 5:07 PM EDT [facility] Blood Venous blood specimen / Unknown Venipuncture / Unknown 01/27/2025 3:10 PM EDT 01/27/2025 4:46 PM EDT us Casey Llanes MD LAB BLOOD ORDERABLES Final Result [facility] [address] [place] [address], [place] [phone] * Magnesium (01/27/2025 3:10 PM EDT) Pathologist [facility] Magnesium 1.9 1.9 - 2.6 mg/dL LAB CHEMISTRY METHOD 01/27/2025 5:07 PM EDT [facility] Blood Venous blood specimen / Unknown Venipuncture / Unknown 01/27/2025 3:10 PM EDT 01/27/2025 4:46 PM EDT us Casey Llanes MD LAB BLOOD ORDERABLES Final Result Performing Organization Address City/[facility]/ZIP Co de Phone Number [facility] [address] [place] [address], [place] [phone] * (ABNORMAL) Basic metabolic panel (01/27/2025 3:10 PM EDT) Pathologist [facility] Sodium 140 133 - 145 mmol/L LAB CHEMISTRY METHOD 01/27/2025 5:07 PM EDT [facility] Potassium 4.1 3.5 - 5.5 mmol/L LAB CHEMISTRY METHOD 01/27/2025 5:07 PM EDT [facility] Chloride 105 96 - 110 mmol/L LAB CHEMISTRY METHOD 01/27/2025 5:07 PM EDT [facility] CO2 31 21 - 32 mmol/L LAB CHEMISTRY METHOD 01/27/2025 5:07 PM EDT [facility] Anion Gap 4 3 - 11 LAB CHEMISTRY METHOD 01/27/2025 5:07 PM EDT [facility] Glucose 115(H) 70 - 100 mg/dL LAB CHEMISTRY METHOD 01/27/2025 5:07 PM EDT [facility] BUN 15 5 - 25 mg/dL LAB CHEMISTRY METHOD 01/27/2025 5:07 PM EDT [facility] Creatinine 1.01 0.70 - 1.30 mg/dL LAB CHEMISTRY METHOD 01/27/2025 5:07 PM EDT [facility] eGFR 78 >=60 mL/min/1. 73m2 LAB CHEMISTRY METHOD 01/27/2025 5:07 PM EDT [facility] Comment:Calculation based on the Chronic Kidney Disease Epidemiology Collaboration (CKD-EPI) equation refit without adjustment for race. BUN/Creatinine Ratio 14.9 LAB CHEMISTRY METHOD 01/27/2025 5:07 PM EDT [facility] Calcium 9.0 8.5 - 10.5 mg/dL LAB CHEMISTRY METHOD 01/27/2025 5:07 PM EDT [facility] Blood Venous blood specimen / Unknown Venipuncture / Unknown 01/27/2025 3:10 PM EDT 01/27/2025 4:46 PM EDT us Casey Llanes MD LAB BLOOD ORDERABLES Final Result [facility] [address] [place] [address], from Last 3 Months Insurance [employer] Care Teams Shrinking Machine Operator Relationship Specialty Start Date End Date Timoteo Escamilla MD [address] [place] [phone] PCP - General 02/23/22
--- OUTSIDE RECORDS SUMMARY | 2025-03-28 18:55 | XMS_ITS | Encounter Summary ---
Author Organization [facility] Address [address] [place] [address] Care Team Providers Care Stationary Engineer Name Role Phone Timoteo Escamilla MD Primary Care Provider [phone] Encounter Details Date Type Department Care Team (Late Contact Info) Description 06/25/2024 Lab Requisition [facility] - Main Lab [address] [facility] [place] [phone] Khurram Zambrano PA [address] [facility] [address] [place] [phone] Urinary tract infection, site not specified; Gross [...] Department Care Team (Late Contact Info) Description 04/28/2025 3:00 PM EST Appointment [facility] Radiation Oncology [address] [place] [phone] 07/02/2025 3:00 PM EDT Office Visit [facility] Hematology Oncology [address] [place] [address] Casey Llanes MD [address] [place] [phone] documented as of this encounter Procedures Procedure [...] Result [facility] [address] [place] [address], documented in this encounter Visit Diagnoses Diagnosis Urinary tract infection, site not specified Gross hematuria documented in this encounter Care Teams Stationary Engineer Relationship Specialty Start Date End Date Timoteo Escamilla MD [address] [place] [address] PCP - General 02/23/22 documented as of this encounter
--- OUTSIDE RECORDS SUMMARY | 2025-03-28 18:55 | XMS_ITS | Encounter Summary ---
Author Organization [facility] Address [address] [place] [address] Care Team Providers Care Development Architect Name Role Phone Timoteo Escamilla MD Primary Care Provider [phone] Encounter Details Date Type Department Care Team (Late Contact Info) Description 06/27/2024 Lab Requisition [facility] - Main Lab [address] [facility] [place] [address] Khurram Zambrano PA [address] [place] [address] [place] [address] Gross hematuria Social History Tobacco [...] Info) Description 04/28/2025 3:00 PM EST Appointment [facility] Radiation Oncology [address] [place] [address] 07/02/2025 3:00 PM EDT Office Visit [facility] Hematology Oncology [address] [place] [address] Casey Llanes MD [address] [place] [address] documented as of this encounter Procedures Procedure Name Priority Date/Time Associated Diagnosis Comments AP OUTSIDE CONSULT Routine 06/25/2024 12 :00 AM EST Gross hematuria documented in this encounter Results * Anatomic pathology outside consult (06/25/2024 12:00 AM EST) Final Diagnosis A. Urine, Voided, ([id number]): Negative for high grade urothelial carcinoma. Results of [employer] fluorescence in situ hybridization (FISH) testing: Although FISH was performed, insufficient non-obscured hybridization signals are present for evaluation and interpretation. 07/08/2024 4:42 PM EDT [facility] at 1642 EDT Clinical Information Gross hematuria R31.0 Urine Cytology/FISH (now) 07/08/2024 4:42 PM EDT [facility] Gross Description A. Urine, Voided, ([id number]): Received one ThinPrep slide for cytology and one ThinPrep slide for UroVysion FISH 07/08/2024 4:42 PM EDT [facility] Disclaimer Unless otherwise specified, all tissue is 10% NB formalin fixed and paraffin embedded. Technical pathology services provided by [facility] at [address], [place] [address] (CLIA #[id number]/Amy Stringer MD, Hand Pleater) 07/08/2024 4:42 PM EDT [facility] Tissue Urine specimen from urethra / Unknown 06/25/2024 06/27/2024 4:00 PM EST us [facility] PATHOLOGY ORDERAB LES Final Result [facility] [address] [place] [address], documented in this encounter Visit Diagnoses Diagnosis Gross hematuria documented in this encounter Care Teams Development Architect Relationship Specialty Start Date End Date Timoteo Escamilla MD [address] [place] [address] PCP - General 02/23/22 documented as of this encounter
[2025-03-31 08:50] LABS: Prothrombin Time Whole Bld POC 27.4 sec (11.1-13.5); ~PT, ~INR - Anti Coag Clinic 2.3 (0.9-1.1)
== END 2025-03-28 15:06 | disposition home or self-care (01) ==
LOC: HO.ACS 14:48
PROVIDERS: PCP Hospitalist; Visit Provider Internal Medicine Medical Oncology
DX: Z79.01 Long term (current) use of anticoagulants (principal)

== ENCOUNTER → 2025-03-28 14:48 | Outpatient (BNVA) | payer MEDICARE, SELFPAY | PROVIDERS: PCP Hospitalist; Visit Provider Internal Medicine Medical Oncology | DX: Z86.73 Personal history of transient ischemic attack (TIA), and cerebral infarction without residual deficits (principal); Z51.81 Encounter for therapeutic drug level monitoring; Z79.01 Long term (current) use of anticoagulants | CPT/HCPCS: 85610; 99211 ==